=== PATIENT | male | born 1950 | race Caucasian/White ===

== ENCOUNTER 2019-08-13 14:01 | Emergency (ER) | payer MEDICARE, SELFPAY ==
[2019-08-13 14:02] VITALS: BP 163/84; PULSE 67; RESP 18; TEMP 36.6; O2SAT 99; BMI 31.9
--- NOTE | 2019-08-13 14:10 | W.ED.FEVER ---
HPI - Fever General: Chief Complaint: Fever Stated Complaint: poss COVID Time Seen by Provider: 08/13/19 14:10 History of Present Illness: HPI Narrative: 69-year-old male who comes in complaining of shortness of breath and fever for the last couple of days he also has myalgias. He is not had any vomiting or diarrhea. He is not traveled he is not been around anyone who he has been known to be positive for COVID 19. Associated symptoms: Deny abdominal pain, back/flank pain, chills, chest pain, diarrhea, dysuria, nasal congestion, nausea or vomiting Review of Systems Const: Denies: fever, chills, body aches, change in appetite, fatigue or malaise ENMT: Denies: throat pain, ear pain, nasal discharge or nasal congestion Card: Denies: chest pain, edema, shortness of breath on exertion or shortness of breath when lying down Resp: Reports: shortness of breath and non-productive cough; Denies: productive cough GI: Denies: abdominal pain, nausea, vomiting, vomiting blood, coffee grounds in vomit, diarrhea, constipation, bloating, blood in stool or black tarry stool : Denies: flank pain, painful urination, urinary frequency or urinary urgency Skin/Breast: Denies: rash or itching PFSH ED PFSH: Social History Smoking and tobacco status: never smoked Physical Exam Const: COMMON NORMALS: no apparent distress GENERAL APPEARANCE: cooperative and comfortable ORIENTATION/CONSCIOUSNESS: Yes awake, Yes oriented to person, Yes oriented to place and Yes oriented to time HENMT: COMMON NORMALS: normocephalic, head/scalp atraumatic, hearing grossly normal bilaterally, external ears normal, EAC's normal, TM's normal bilaterally, nasal mucous membranes and turbinates normal, moist oral mucous membranes and oropharynx normal HEAD & SCALP: normocephalic and atraumatic NOSE: nasal mucous membranes and turbinates normal EXTERNAL EAR: Yes external ears normal EXTERNAL AUDITORY CANAL: EAC's normal TYMPANIC MEMBRANE: TM's normal bilaterally Eye: COMMON NORMALS: PERRL, EOMs intact bilaterally, conjunctivae normal and no scleral icterus CONJUNCTIVA: Yes conjunctivae normal PUPIL: Yes PERRL Neck/C-Spine: COMMON NORMALS: full ROM, no lymphadenopathy, supple and no JVD Lymph: LYMPHATIC: no lymphadenopathy noted and no lymphedema noted Resp: COMMON NORMALS: normal respiratory effort, no retractions, no use of accessory muscles and clear to auscultation bilaterally AUSCULTATION: clear to auscultation bilaterally Cardio: COMMON NORMALS: no JVD, regular rate, regular rhythm and no murmurs RATE: regular rate RHYTHM: regular rhythm GI: COMMON NORMALS: soft to palpation and no hepatosplenomegaly AUSCULTATION: Yes normoactive bowel sounds PALPATION: Yes soft, No tender, No guarding and Yes no hepatosplenomegaly Extremity: COMMON NORMALS: normal to inspection, normal capillary refill, no clubbing, cyanosis or edema, no calf tenderness and no pedal edema Neuro: SENSORIUM/ORIENTATION: Yes oriented to person, Yes oriented to place and Yes oriented to time Skin: COMMON NORMALS: no rashes or lesions noted GENERAL SKIN EXAM: no rashes or lesions noted Course Vital Signs: Vital signs: Vital Signs Temperature 97.9 F 08/13/19 14:02 Pulse Rate 64 08/13/19 15:58 Respiratory Rate 14 08/13/19 15:58 Blood Pressure 152/98 08/13/19 15:58 Pulse Oximetry 96 08/13/19 15:58 MDM - Fever MDM Narrative: Medical decision making narrative: Discussed findings with patient especially concerning his elevated blood sugar. Recommended that he quarantine himself until the COVID 19 testing is resulted. If he has significant worsening he should return. Lab Data: Labs: Lab Results 08/13/19 08/13/19 08/13/19 Range/Units 14:30 14:30 14:30 WBC 5.2 (4.0-10.0) 10^3/ uL RBC 4.38 (4.1-5.3) 10^6/u L Hgb 13.3 (11.7-16.6) g/dL Hct 40.3 L (42.0-52.0) % MCV 92.0 (80-94) fL MCH 30.4 (28.0-34.0) pg MCHC 33.0 (30.0-36.0) g/dL RDW 13.3 (12.1-15.1) % Plt Count 136 (130-400) 10^3/c mm MPV 11.0 H (7.4-10.4) fL Neut % (Auto) 57.4 % Lymph % (Auto) 29.9 % Hardeman % (Auto) 6.7 % Eos % (Auto) 1.7 % Baso % (Auto) 1.0 % Neut # (Auto) 3.0 (1.8-7.7) 10^3/u L Lymph # (Auto) 1.6 (0.8-4.8) 10^3/u L Hardeman # (Auto) 0.4 (0.2-0.9) 10^3/u L Eos # (Auto) 0.1 (0.0-0.8) 10^3/u L Baso # (Auto) 0.1 (0.0-0.1) 10^3/u L Nucleated RBC % (a uto) 0 % Nucleated RBCs # 0.0 /100WBC D-Dimer <= 0.27 (0-0.59) ug/mIFE U Sodium 133 L (136-145) mmol/L Potassium 4.8 (3.5-5.1) mmol/L Chloride 96 L (98-107) mmol/L Carbon Dioxide 23 (22-29) mmol/L Anion Gap 18.8 (5-19) BUN 13 (8-23) mg/dL Creatinine 0.9 (0.7-1.2) mg/dL GFR Calculation 84.2 L (90-130) mL/min Glucose 494 H (65-115) mg/dL Calculated Osmolal ity 294 (285-295) mOsm/k g Lactic Acid (0.5-2.2) mmol/L Calcium 9.9 (8.5-10.5) mg/dL Ferritin 2921 H (30-400) ng/mL Total Bilirubin 0.4 (0.15-1.2) mg/dL AST 31 (0-40) U/L ALT 84 H (0-41) U/L Alkaline Phosphata se 361 H (40-130) IU/L Lactate Dehydrogen ase 160 (135-225) U/L C-Reactive Protein 53.9 H (0.0-4.9) mg/L Total Protein 7.5 (6.6-8.7) g/dL Albumin 3.7 (3.5-5.2) g/dL Globulin 3.8 (1.3-4.6) g/dL Procalcitonin 0.19 (0-0.5) ng/mL Influenza Type A A g (Negative) Influenza Type B A g (Negative) 08/13/19 08/13/19 Range/Units 14:30 14:49 WBC (4.0-10.0) 10^3/ uL RBC (4.1-5.3) 10^6/u L Hgb (11.7-16.6) g/dL Hct (42.0-52.0) % MCV (80-94) fL MCH (28.0-34.0) pg MCHC (30.0-36.0) g/dL RDW (12.1-15.1) % Plt Count (130-400) 10^3/c mm MPV (7.4-10.4) fL Neut % (Auto) % Lymph % (Auto) % Hardeman % (Auto) % Eos % (Auto) % Baso % (Auto) % Neut # (Auto) (1.8-7.7) 10^3/u L Lymph # (Auto) (0.8-4.8) 10^3/u L Hardeman # (Auto) (0.2-0.9) 10^3/u L Eos # (Auto) (0.0-0.8) 10^3/u L Baso # (Auto) (0.0-0.1) 10^3/u L Nucleated RBC % (a uto) % Nucleated RBCs # /100WBC D-Dimer (0-0.59) ug/mIFE U Sodium (136-145) mmol/L Potassium (3.5-5.1) mmol/L Chloride (98-107) mmol/L Carbon Dioxide (22-29) mmol/L Anion Gap (5-19) BUN (8-23) mg/dL Creatinine (0.7-1.2) mg/dL GFR Calculation (90-130) mL/min Glucose (65-115) mg/dL Calculated Osmolal ity (285-295) mOsm/k g Lactic Acid 1.8 (0.5-2.2) mmol/L Calcium (8.5-10.5) mg/dL Ferritin (30-400) ng/mL Total Bilirubin (0.15-1.2) mg/dL AST (0-40) U/L ALT (0-41) U/L Alkaline Phosphata se (40-130) IU/L Lactate Dehydrogen ase (135-225) U/L C-Reactive Protein (0.0-4.9) mg/L Total Protein (6.6-8.7) g/dL Albumin (3.5-5.2) g/dL Globulin (1.3-4.6) g/dL Procalcitonin (0-0.5) ng/mL Influenza Type A A g Negative (Negative) Influenza Type B A g Negative (Negative) Discharge Plan Discharge Patient Disposition: Home, Self-Care Clinical Impression: Viral URI with cough Condition: Stable Prescriptions: No Action trazodone 50 mg Tablet 50 mg PO BEDTIME PRN (Reason: Sleep) RF: 0 Tylenol Arthritis Pain 650 mg Tablet Extended Release 1,950 mg PO BID PRN (Reason: Pain) RF: 0 gabapentin 800 mg Tablet 800 mg PO QID RF: 0 losartan 25 mg Tablet 25 mg PO DAILY RF: 0 Flonase Allergy Relief 50 mcg/actuation [place],Suspension 2 spray INTRANASAL DAILY RF: 0 Complete 50+ 0.4-300-250 mg-mcg-mcg Tablet 1 tab PO DAILY RF: 0 Lantus Solostar U-100 Insulin 100 unit/mL (3 mL) Insulin Pen 35 unit SUBCUT BEDTIME RF: 0 oxycodone 10 mg tablet 10 - 20 mg PO Q4H MDD 6 tab PRN (Reason: Pain) RF: 0 Humalog KwikPen Insulin See Rx Instructions .ROUTE .COMPLEX RF: 0 tamsulosin 0.4 mg capsule 0.4 mg PO DAILY RF: 0 Referrals: Ramirez Sheriff MD [Physician] - (Please call to make arrangements to talk to Dr. Sheriff or see him tomorrow.) Activity Restrictions/Additional Instructions: You have been evaluated today for Kovic 19 infection. Clinically we suspect you may have this infection the result will not be back until at the earliest tomorrow. You should follow-up with your primary care doctor tomorrow either by phone or in person. If you have significant worsening or uncontrollable fever or more difficulty breathing return to the emergency room to be reevaluated. You should remain in strict quarantine until you were given your results. Wear a mask anytime you are in the presence of others. Discharge Date/Time: 08/13/19 17:33 Coding Level of Care Code ED Office Services Clerk for Kelly Dudley
--- NOTE | 2019-08-13 14:11 | XR_ITS ---
WS: [id number] CHEST XRAY TECHNIQUE: Portable chest. CLINICAL INFORMATION: dyspnea COMPARISON: October 11, 2018 FINDINGS: Right central venous catheter with tip in the proximal SVC. Heart: Cardiomegaly. Lungs: Elevation right hemidiaphragm. Small right pleural effusion with right basilar atelectasis. Le ft lung is well aerated. Bones: Normal visualized bony structures. XR/XR chest 1V portable [id number] IMPRESSION: 1. Right central venous catheter tip in SVC. 2. Elevation right hemidiaphragm with volume loss right lung base. Small right pleural effusion with right basilar atelectasis. 3. Left lung is well aerated.
--- NOTE | 2019-08-13 14:11 | ECG_ITS ---
Measurements Intervals [place] Rate: 66 P: 37 ND: 172 QRS: -49 QRSD: 125 T: 22 QT: 414 QTc: 434 SINUS RHYTHM POSSIBLE RIGHT VENTRICULAR CONDUCTION DELAY [RSR (QR) IN V1/V2] LEFT ANTERIOR FASCICULAR BLOCK [QRS AXIS <= -45, QR IN I, RS IN II] Compared to ECG 05/14/2015 10:48:14 Left anterior fascicular block now present Left-axis deviation no longer present Incomplete right bundle-branch block no longer present Electronically Signed On 08-13-2019 18:04:42 CDT by Adriana Gordon M.D. [email or web address]
--- NOTE | 2019-08-13 14:45 | PC.NURSE ---
COVID-19 swab obtained and taken to lab.
[2019-08-13 14:53] LABS: Basophils # 0.1 10^3/uL (0.0-0.1); Eosinophils # 0.1 10^3/uL (0.0-0.8); Eosinophils % 1.7 %; Hematocrit 40.3 % (42.0-52.0); Hemoglobin 13.3 g/dL (11.7-16.6); Lymphocytes # 1.6 10^3/uL (0.8-4.8); Lymphocytes % 29.9 %; Mean Corpuscular Hemoglobin 30.4 pg (28.0-34.0); Monocytes # 0.4 10^3/uL (0.2-0.9); Monocytes % 6.7 %; Neutrophils % 57.4 %; Nucleated Red Blood Cells % 0 %; Platelet Count 136 10^3/cmm (130-400); Red Blood Count 4.38 10^6/uL (4.1-5.3); Red Cell Distribution Width 13.3 % (12.1-15.1); White Blood Count 5.2 10^3/uL (4.0-10.0)
[2019-08-13 15:25] LABS: D Dimer <= 0.27 ug/mIFEU (0-0.59)
[2019-08-13 15:30] LABS: Lactic Sepsis W/Reflex 1.8 mmol/L (0.5-2.2)
[2019-08-13 15:37] LABS: Procalcitonin 0.19 ng/mL (0-0.5)
[2019-08-13 15:44] LABS: Influenza A by IFA Negative (Negative); Influenza B by IFA Negative (Negative)
[2019-08-13 15:48] LABS: Alanine Aminotransferase 84 U/L (0-41); Albumin Level 3.7 g/dL (3.5-5.2); Alkaline Phosphatase 361 IU/L (40-130); Anion Gap 18.8 (5-19); Aspartate Amino Transferase 31 U/L (0-40); Blood Urea Nitrogen 13 mg/dL (8-23); C Reactive Protein 53.9 mg/L (0.0-4.9); Calcium 9.9 mg/dL (8.5-10.5); Carbon Dioxide 23 mmol/L (22-29); Chloride 96 mmol/L (98-107); Globulin 3.8 g/dL (1.3-4.6); Glomerular Filtration Rate 84.2 mL/min (90-130); Glucose 494 mg/dL (65-115); Lactate Dehydrogenase 160 U/L (135-225); Osmolality Calculated 294 mOsm/kg (285-295); Potassium 4.8 mmol/L (3.5-5.1); Sodium 133 mmol/L (136-145); Total Bilirubin 0.4 mg/dL (0.15-1.2); Total Protein 7.5 g/dL (6.6-8.7)
[2019-08-13 15:58] VITALS: BP 152/98; PULSE 64; RESP 14; O2SAT 96
[2019-08-13 16:06] LABS: Ferritin 2921 ng/mL (30-400)
--- NOTE | 2019-08-14 14:10 | PC.NURSE ---
Pt called and notified of negative COVID-19 test results.
[2019-08-14 14:16] LABS: Coronavirus Lab Test PTC NOT DETECTED
== END 2019-08-13 17:33 | disposition home or self-care (01) ==
PROVIDERS: Emergency Provider Family Medicine; Family Provider Family Medicine
DX: J06.9 Acute upper respiratory infection, unspecified (principal); R05 Cough; Z79.4 Long term (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 of insulin; E11.65 Type 2 diabetes mellitus with hyperglycemia; I44.4 Left anterior fascicular block
CPT/HCPCS: 12345; 36415; 71045; 80053; 82728; 83605; 83615; 84145; 85025; 85378; 86140; 87040; 87635; 87804; 93005; 99282; 99284

== ENCOUNTER 2019-09-25 14:44 | Outpatient (CLI) | payer MEDICARE, SELFPAY ==
[2019-09-25] MEDS: alteplase 1 mg/mL SDV 2 mL 2 MG IV (15:00)
== END 2019-09-25 14:45 | disposition home or self-care (01) ==
LOC: ONCMED 14:45
PROVIDERS: PCP Family Medicine; Visit Provider Internal Medicine Medical Oncology
DX: Z45.2 Encounter for adjustment and management of vascular access device (principal); C81.92 Hodgkin lymphoma, unspecified, intrathoracic lymph nodes; D46.Z Other myelodysplastic syndromes
CPT/HCPCS: 96374; J2997

== ENCOUNTER 2019-10-27 15:11 | Outpatient (CLI) | payer MEDICARE, SELFPAY | END 2019-10-27 15:12 | disposition home or self-care (01) | LOC: ONCMED 15:15 | PROVIDERS: PCP Family Medicine; Visit Provider Internal Medicine Medical Oncology | DX: Z45.2 Encounter for adjustment and management of vascular access device (principal) | CPT/HCPCS: 96523 ==

== ENCOUNTER 2019-11-24 13:55 | Outpatient (CLI) | payer MEDICARE, SELFPAY | END 2019-11-24 13:56 | disposition home or self-care (01) | LOC: ONCMED 13:58 | PROVIDERS: PCP Family Medicine; Visit Provider Nurse Practitioner | DX: Z45.2 Encounter for adjustment and management of vascular access device (principal) | CPT/HCPCS: 96523 ==

== ENCOUNTER 2020-04-08 15:19 | Outpatient (CLI) | payer MEDICARE, SELFPAY | END 2020-04-08 15:20 | disposition home or self-care (01) | LOC: ONCMED 15:26 | PROVIDERS: PCP Family Medicine; Visit Provider Internal Medicine Medical Oncology | DX: Z45.2 Encounter for adjustment and management of vascular access device (principal) | CPT/HCPCS: 96523 ==

== ENCOUNTER 2020-05-26 12:31 | Outpatient (CLI) | payer MEDICARE, SELFPAY ==
[2020-05-26 14:16] LABS: Basophils # 0.1 10^3/uL (0.0-0.1); Basophils % 1.3 %; Eosinophils # 0.1 10^3/uL (0.0-0.8); Eosinophils % 2.3 %; Hematocrit 41.1 % (42.0-52.0); Lymphocytes # 2.2 10^3/uL (0.8-4.8); Lymphocytes % 41.9 %; Mean Corpuscular HGB Conc 34.1 g/dL (30.0-36.0); Mean Corpuscular Hemoglobin 30.3 pg (28.0-34.0); Mean Platelet Volume 11.6 fL (7.4-10.4); Monocytes # 0.3 10^3/uL (0.2-0.9); Monocytes % 6.5 %; Neutrophils # 2.51 10^3/uL (1.8-7.7); Neutrophils % 47.6 %; Nucleated Red Blood Cells % 0 %; Platelet Count 106 10^3/cmm (130-400); Red Blood Count 4.62 10^6/uL (4.1-5.3); Red Cell Distribution Width 12.7 % (12.1-15.1); White Blood Count 5.3 10^3/uL (4.0-10.0)
[2020-05-26 15:03] LABS: Erythrocyte Sedimentation Rate 17 mm/hr (0-10)
[2020-05-26 15:47] LABS: Alanine Aminotransferase 93 U/L (0-41); Alkaline Phosphatase 250 IU/L (40-130); Anion Gap 12.9 (5-19); Aspartate Amino Transferase 35 U/L (0-40); Blood Urea Nitrogen 14 mg/dL (8-23); Calcium 9.6 mg/dL (8.5-10.5); Carbon Dioxide 29 mmol/L (22-29); Chloride 98 mmol/L (98-107); Globulin 3.2 g/dL (1.3-4.6); Glomerular Filtration Rate 112.1 mL/min (90-130); Glucose 386 mg/dL (65-115); Iron 110 ug/dL (59-158); Lactate Dehydrogenase 159 U/L (135-225); Lipase 17 U/L (13-60); Osmolality Calculated 296 mOsm/kg (285-295); Percent Saturation 45.4 % (20-50); Potassium 4.9 mmol/L (3.5-5.1); Sodium 135 mmol/L (136-145); Thyroid Stimulating Hormone 2.71 uIU/mL (0.27-4.20); Total Bilirubin 0.5 mg/dL (0.15-1.2); Total Iron Binding Capacity 242 mcg/dl; Total Protein 7.2 g/dL (6.6-8.7); Unsaturated Iron Binding 132 ug/dL (112-347); Vitamin B12 597 pg/mL (232-1245)
[2020-05-26 16:09] LABS: Ferritin 2857 ng/mL (30-400)
[2020-05-26 16:36] LABS: Estmated Average Glucose 206; Hemoglobin A1C 8.8 % (4.0-6.0)
--- NOTE | 2020-05-30 12:31 | ONC CON_ITS ---
Dr. Bal New Patient Note Patient: Inder Caldwell Unit #: [id number]: 1950 Dicatated By: Milton Bal M.D.Date of Visit: May 26, 2020 Onc MED New Patient/Consult Referring Physician: Dr. Shashank Coulter M.D. Chief Complaint: Myelodysplastic syndrome/Hodgkin's lymphoma. 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 The myelodysplastic syndrome was initially diagnosed in July of 2002. He had severe pancytopenia at that time, including transfusion dependent anemia. He had failed initial therapies and he ultimately underwent HLA matched unrelated donor bone marrow transplant at [facility] in November of 2005. The MDS has remained in remission following the [facility]. 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 He required placement of a pericardial window in May 2008. In June 2011 his serum ferritin was found to be markedly elevated, in excess of 5000 ng/mL, consistent with iron overload. This was presumed to be related to his previous transfusions. 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 He did start on a phlebotomy program at that time. In July 2012 he developed an acute febrile illness. A specific cause for that was never determined, but it did resolve. He stopped phlebotomies at that point. During subsequent followup with Dr. Coulter, he apparently was found to have evidence of iron deficiency, and he received several iron infusions. He also underwent upper and lower GI endoscopy, and there were no significant abnormalities noted on either study. I had seen him in May 2014 with declining performance status. He had significantly a elevated sedimentation rate and CRP level. He was subsequently found on CT scan to have significant mediastinal lymphadenopathy. He then underwent further evaluation at [facility], and he was found on a left internal jugular lymph node biopsy to have a post transplant lymphoproliferative disorder consistent with classical Hodgkin's lymphoma. He appeared to have at least stage IIB disease. The bone marrow was not involved. It was recommended that he undergo treatment with ABVD chemotherapy. Durng his evaluation at [facility], he underwent placement of a [place] catheter for the chemotherapy administration. We had arranged for him to start chemotherapy here, but he did require pulmonary function studies prior to his first treatment, and while that was being done he fell at home and sustained a traumatic fracture to the right hip. He underwent open reduction with gamma nail fixation on 06/16/2014. He was discharged to a halfway for recovery, which was fairly uneventful. He was then able to start ABVD chemotherapy on 06/25/2014. He did experience multiple complications during chemotherapy, and he remained severely neutropenic throughout his treatment. He was, though, able to complete his 6th cycle of treatment on 11/26/2014. He appeared to have a complete response by follow-up PET/CT. His hip fixation subsequently failed, and he then underwent right total hip arthroplasty in February 2016. During this time he had continued to have significant pain in the low back area. He was evaluated with CT of the lumbar spine, which showed new compression fracture at L2 and increased L4-L5 central canal stenosis related to degenerative disc bulge. I had discussed those results with Dr. Geiger, and he did recommend further evaluation with MRI. That study was done on 08/11/2014 and it did show evidence of acute vertebral compression fracture at L2 and severe central canal stenosis and bilateral neural foraminal stenosis at L4-L5. There was extensive posterior lumbar bone fusion from L1 thru L3 and evidence of post laminectomy defects. He had known degenerative disease of the spine with chronic back pain. He was managed conservatively. I had seen him again in December 2016 and in August 2017. He had ongoing complaints of weakness/fatigue and generalized itching. On evaluation, there was no evidence of recurrence of either the myelodysplastic syndrome or the Hodgkin's lymphoma. His other medical illnesses include hypertension, type 2 diabetes, peripheral neuropathy, and GERD. He is a nonsmoker. He is seen for a followup visit. He complains that he is just tired. He has limited activity. His ECOG score is 2. He has good appetite. He has lost weight. He has no fever or night sweats. He complains that his left ear drains all the time. He does not complain of shortness of breath or cough, and he does not complain of chest pain. He complains of having nausea and he sometimes has acid reflux. He has been having pain in his upper abdomen and he has constipation. He has not been aware of any blood in the stool. He complains that his urination is slow. He has chronic pain in the back. He says it is at least at a 5 or 6 level all the time. He follows with Dr. Smith at pain clinic. He has migraine headaches at least once or twice a month. He has peripheral neuropathy. He has no focal neurologic symptoms. Past Medical History: His medical history consists of degenerative disease of the spine, diabetes type II, gastroesophageal reflux disease, Hodgkin's lymphoma, hypertension, obstructive sleep apnea, peripheral neuropathy, and high grade myelodysplastic syndrome in 2002. Past Surgical History: His surgical/procedural history includes lumbar laminectomy following back injury in 1996, tonsillectomy, right total hip arthroplasty in 2015, right hip gamma nail hip implant-Dr Nichols ([facility] [place] in 2014, pericardial window in 2008, and HLA matched unrelated donor bone marrow transplant in 2005 - [facility]. Medications: AmLODIPine Besylate 1 Tablet (of 5 mg) Oral daily, Cholecalciferol 1 (1000 Units) Capsule Oral daily, Gabapentin 1 Tablet (of 800 mg) Oral four times a day, HumaLOG Subcutaneous t.i.d., Lantus SoloStar 40 Units Subcutaneous daily, Losartan Potassium 1 Tablet (of 25 mg) Oral daily, Multiple Vitamin 1 Capsule Oral daily, OxyCODONE HCl 1 - 2 (5 mg) Tablet Oral q 4 hours PRN Allergies: Codeine Sulfate, Morphine Sulfate, and Soma. Social History: Mr. Caldwell is and he is a disabled. He has never smoked and drinks alcohol rarely. Family History: Significant for his father having of lung cancer at age 66. Mother of possible suicide when patient was 11 years old. Review of Systems: As above. Vital Signs: Performed on May 26, 2020 13:07: 5, 30.31 (HIGH), 2.11 sq.m, 69.50 in, 99 %, 66 /min, 18 /min, 132/68 mm(hg), 96.6 F (LOW), 208.2 lbs (LOW), and Performed on Jun 29, 2017 12:19: 0. Physical Examination: Constitutional - He appears somewhat weak generally, Eyes - Sclerae nonicteric. Conjunctivae clear, ENMT - No lesions noted in the oral cavity, Hematologic/Lymphatic - No cervical, clavicular, or axillary adenopathy, Respiratory - Lungs sound clear, Cardiovascular - Heart rhythm is regular. There is a II/ systolic murmur. There is no gallop or rub noted, Abdomen - Soft. Liver is not enlarged. Spleen is not palpable. There is no abdominal mass or ascites noted and there is no inguinal adenopathy, Extremities - There are mild venous stasis changes bilaterally. There is currently no edema, Integumentary - No skin eruption. No suspicious skin lesions noted, Neurologic - No focal neurologic deficits noted. Lab/Imaging: Test performed on May 26, 2020 13:48 Ferritin 2857 ng/mL Iron 110 mcg/dL LDH (Total) 159 U/L Lipase 17 U/L Sodium 135 mmol/L TSH 2.71 uIU/mL Vitamin B12 597 pg/mL Iron Binding Capacity (TIBC) 242 mcg/dl Potassium 4.9 mmol/L % Iron Saturation 45.4 % Chloride 98 mmol/L Est Avg Glucose (eAG) 206 mg/dL CO2 29 mmol/L UIBC 132 mcg/dL Anion Gap 12.9 BUN 14 mg/dL Creatinine 0.7 mg/dL Cr Clearance (Est) 134.9100 mL/min eGFR 112.1 mL/min Glucose 386 mg/dL Osmolality - Calculated 296 mOsm/kg Calcium 9.6 mg/dL Protein, Total 7.2 g/dL Albumin 4.0 g/dL Globulin 3.2 g/dL Bilirubin, Total 0.5 mg/dL ALT (SGPT) 93 U/L AST (SGOT) 35 U/L Alkaline Phosphatase 250 IU/L ESR (Sed Rate) 17 mm/hr Hemoglobin A1C % 8.8 % WBC 5.3 10 3/uL RBC 4.62 10 6/uL HGB 14.0 g/dL HCT 41.1 % MCV 89.0 fL MCH 30.3 pg MCHC 34.1 g/dL RDW 12.7 % Platelet Count 106 10 3/cmm MPV 11.6 fL Neutrophils 2.51 10 3/uL Lymphocytes 2.2 10 3/uL Monocytes 0.3 10 3/uL Eosinophils 0.1 10 3/uL Basophils 0.1 10 3/uL Neutrophil % 47.6 % Lymphocyte % 41.9 % Monocyte % 6.5 % Eosinophil % 2.3 % Basophils % 1.3 % NRBC % 0 % Problem List: 1. High-grade myelodysplastic syndrome. He underwent HLA matched unrelated donor bone marrow transplant at [facility] in November 2005. Thus far there has been no documented recurrence of the myelodysplastic syndrome. 2. During followup he required treatment for [id number] disease, including an episode of pericarditis and pulmonary infiltrates in May 2008. 3. In May 2014 he was diagnosed with classical Hodgkin's lymphoma, consistent with a post transplant lymphoproliferative disorder. By clinical evaluation appeared to have stage IIB disease. He had complete response to treatment with 6 cycles of ABVD chemotherapy, completed in November 2014. 4. He has had significantly elevated serum ferritin levels, previously in excess of 5000 ng/mL. It was uncertain to what extent that elevation may have reflected inflammatory changes versus iron overload. His transferrin saturation, though, was never elevated. 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 5. He underwent open reduction with gamma nail fixation for traumatic right femoral neck fracture on 06/16/2014. The fixation subsequently failed, and he underwent right total hip arthroplasty in February 2016. 6. He has had moderately elevated liver enzymes. Etiology is uncertain. The likely possibilities would be srvvi-ybwqiw-rzio disease or iron overload. His viral hepatitis screen in May 2014 was reactive to hepatitis Bs antibody and otherwise negative. 7. Hypertension. 8. Type II diabetes. 9. GERD. 10. Obstructive sleep apnea with intolerance to CPAP. 11. Degenerative disease of the spine with chronic back pain. 12. He has had vertebral compression fractures. Problems Addressed with this Encounter and Plan: 1. High-grade myelodysplastic syndrome. He underwent HLA matched unrelated donor bone marrow transplant at [facility] in November 2005. Thus far there has been no documented recurrence of the myelodysplastic syndrome. He remains on observation/expectant management. 2. Yibds-zqyhhl-swrr disease, including pericarditis and pulmonary infiltrates in May 2008. It appears to be inactive at present. 3. Classical Hodgkin's lymphoma, consistent with a post transplant lymphoproliferative disorder. By clinical evaluation appeared to have stage IIB disease. He had complete response to treatment with 6 cycles of ABVD chemotherapy, completed in November 2014. He remains on observation/expectant management. 4. He has had significantly elevated serum ferritin levels, and he has had moderately elevated liver enzymes. The cause it is uncertain. His previous evaluations have not shown clear evidence of iron overload. 5. He has chronic weakness/fatigue and generalized itching. A specific cause has not been determined. Given his complex history, there are multiple potential contributing causes including the potential for underlying liver disease and his obstructive sleep apnea. He also has been having pain in the upper abdomen, and he has had significant weight loss. He will have laboratory studies today to include CBC, comprehensive metabolic profile, sed rate, LDH level, serum lipase, serum iron studies and ferritin, B12 level, LDH level, and hemoglobin A1c level. He will be scheduled for restaging CT scans of the chest, abdomen, and pelvis. He will have further evaluation as indicated. Signed By: Milton Bal M.D. <<Signature on File>>
== END 2020-05-26 12:32 | disposition home or self-care (01) ==
LOC: ONCMED 12:34
PROVIDERS: PCP Family Medicine; Visit Provider Internal Medicine Medical Oncology
DX: Z08 Encounter for follow-up examination after completed treatment for malignant neoplasm (principal); Z85.71 Personal history of Hodgkin lymphoma; Z86.2 Personal history of diseases of the blood and blood-forming organs and certain disorders involving the immune mechanism; R74.8 Abnormal levels of other serum enzymes; R53.1 Weakness; R10.10 Upper abdominal pain, unspecified; R63.4 Abnormal weight loss; E11.42 Type 2 diabetes mellitus with diabetic polyneuropathy; L29.9 Pruritus, unspecified; Z94.81 Bone marrow transplant status; Z92.21 Personal history of antineoplastic chemotherapy
CPT/HCPCS: 36591; 80053; 82607; 82728; 83036; 83540; 83550; 83615; 83690; 84443; 85025; 85651; 99215

== ENCOUNTER 2020-06-02 08:35 | Outpatient (CLI) | payer MEDICARE, SELFPAY ==
--- NOTE | 2020-06-02 08:42 | CT_ITS ---
WS: [id number] CT CHEST, ABDOMEN AND PELVIS WITH CONTRAST. HISTORY: LYMPHOMA, PAIN UPPER ABDOMEN, WEIGHT LOSS TECHNIQUE: Contiguous 5 mm axial imaging performed through the chest, abdomen and pelvis with IV cont rast, oral contrast has been provided. Coronal and sagittal reformats chest. Coronal and sagittal ref ormats through the abdomen and pelvis. All CT scans at [facility] use at least one of the se dose optimization techniques: automated exposure control; mA and/or kV adjustment per patient size (includes targeted exams where dose is matched to clinical indication); or iterative reconstruction. CONTRAST: Omnipaque 300; 95 mL IV. DLP: 2871.13 mGycm COMPARISON: 08/14/2017 and 05/07/[address]: Subsegmental linear areas of atelectasis in the base of the RIGHT middle and RIGHT lower lo bes. No pulmonary nodule or mass. Inferior RIGHT paratracheal lymph node measures 10 mm. This lymph n ode is unchanged since 08/14/2017. No additional larger indeterminate lymph nodes. Mild atherosclerosi s aorta. Pulmonary artery size is equal to the aorta. Moderate coronary artery calcifications. Very m ild enlargement of the heart. Small hiatal hernia. RIGHT Port-A-Cath is present. Abdomen CT: Mild enlargement the liver. There is very mild central bile duct dilatation which may be on the basis of prior cholecystectomy. No obstructing mass identified. Prior cholecystectomy. Spleen is enlarged extending over length of 16.4 cm. Similar measurement to the prior study from 05/07/2017. N o splenic lesions. Moderate atrophy of the pancreas. No adrenal mass. Kidneys are normal size with no obstruction. Mild atherosclerosis abdominal aorta. No ascites. No mesenteric or retroperitoneal lymphadenopathy. Moderate diffuse constipation. No obstruction or inflammation. The appendix is been removed. Pelvic CT: Normally distended urinary bladder. No free fluid or adenopathy in the pelvis. Prior RIGHT hip arthroplasty. No osteolytic or osteoblastic bone lesions. Extensive postsurgical paul ges and laminectomy defects in the lumbar spine. L2 compression fracture. Lytic changes within the L2 and L3 vertebral bodies are unchanged. No new lytic change. CT/CT chest abd pel w con* IMPRESSION: 1. No evidence for adenopathy or interval change within the chest, abdomen or pelvis. 2. Stable inferior RIGHT paratracheal lymph node. 3. Prior cholecystectomy with mild central bile duct dilatation. Dilatation ma y be on the basis of cholecystectomy. No mass or stones identified within the d uct. 4. Moderate splenomegaly measuring 16.4 cm in length. Similar to the prior gerson dy of 05/07/2017. 5. Diffuse moderate constipation.
[2020-06-02] MEDS: iohexol 300 mg/mL 50 mL Btl PO (10:01)
[2020-06-02] MEDS: iohexol 300 mg/mL 100 mL Btl IV (10:22)
== END 2020-06-02 08:36 | disposition home or self-care (01) ==
LOC: RADWPI 08:42
PROVIDERS: PCP Family Medicine; Visit Provider Internal Medicine Medical Oncology
DX: C81.92 Hodgkin lymphoma, unspecified, intrathoracic lymph nodes (principal); R10.10 Upper abdominal pain, unspecified; R63.4 Abnormal weight loss; K59.00 Constipation, unspecified; R16.1 Splenomegaly, not elsewhere classified; Z90.49 Acquired absence of other specified parts of digestive tract
CPT/HCPCS: 71260; 74177; Q9967

== ENCOUNTER 2020-07-02 15:35 | Emergency (ER) | payer MEDICARE, SELFPAY ==
[2020-07-02 15:47] VITALS: BP 206/80; PULSE 68; RESP 18; TEMP 36.6; O2SAT 99; BMI 33.4
--- NOTE | 2020-07-02 16:01 | ECG_ITS ---
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 Measurements Intervals [place] Rate: 60 P: 41 FL: 203 QRS: -52 QRSD: 116 T: 42 QT: 429 QTc: 430 Interpretive Statements SINUS RHYTHM INCOMPLETE RIGHT BUNDLE BRANCH BLOCK [90+ ms QRS DURATION, TERMINAL R IN V1/V2, 40+ ms S IN I/aVL/V4/V5/V6] LEFT ANTERIOR FASCICULAR BLOCK [QRS AXIS <= -45, QR IN I, RS IN II] MINIMAL VOLTAGE CRITERIA FOR LVH, CONSIDER NORMAL VARIANT [MEETS CRITERIA IN ONE OF: R(aVL), S(V1), R(V5), R(V5/V6)+S(V1)] Compared to ECG 08/13/2019 14:48:06 Incomplete right bundle-branch block now present Electronically Signed On 07-03-2020 11:25:19 LONG LINES OPERATOR by Gladys Diana M.D. [id number]
--- NOTE | 2020-07-02 16:16 | PC.PHAR ---
pts states the pt is suppose to be taking lantus solostar-pt and pts states the pt has been out of this medication for 3 months states the insurance doesnt cover it any longer states he was suppose to be on 35 units hs-pts states the pt takes humalog -pts states [facility] fill [facility] states they havent filled this medication for the pt
--- NOTE | 2020-07-02 16:22 | CTR_ITS ---
PROCEDURE INFORMATION: Exam: CT Abdomen And Pelvis With Contrast Exam date and time: 07/02/2020 5:12 PM Age: 70 years old Clinical indication: Abdominal pain; Localized; Left upper quadrant (luq); Prior surgery; Surgery date: 6+ months; Surgery type: Gb, hip, l-sp; Patient HX: HX of lymphoma C/O luq abd cramping w n/v and constipation; Additional info: Abd pain TECHNIQUE: Imaging protocol: Computed tomography of the abdomen and pelvis with contrast. Radiation optimization: All CT scans at this facility use at least one of these dose optimization techniques: automated exposure control; mA and/or kV adjustment per patient size (includes targeted exams where dose is matched to clinical indication); or iterative reconstruction. Contrast material: OMNI 300; Contrast volume: 95 ml; Contrast route: INTRAVENOUS (IV); COMPARISON: CT chest abd pel w con* 06/02/2020 10:18 AM RADIATION DOSE METRICS: Total DLP (mGy-cm): 1455.88 FINDINGS: Lungs: The visualized lung bases are clear. Liver: Normal size and density. No focal mass. Gallbladder and bile ducts: The gallbladder has been removed. Mild biliary dilatation, similar to prior exam, likely due to reservoir effect. Pancreas: No evidence of mass. No ductal dilation. Spleen: Spleen is enlarged at 17 cm. Adrenal glands: Normal. Kidneys and ureters: No stones or hydronephrosis. No evidence of focal mass. Stomach and bowel: A large amount of formed stool throughout the colon. No signs of obstruction. No focal bowel wall thickening or mass. No significant diverticula. Appendix: The appendix is not clearly seen, but there are no secondary signs of acute appendicitis. Intraperitoneal space: No free air. No free fluid or evidence of abscess. Vasculature: No concerning abnormalities. Lymph nodes: No lymphadenopathy. Urinary bladder: Normal CT appearance. Reproductive: Normal CT appearance for age. Bones/joints: Postsurgical changes and associated significant degenerative changes of the lumbar spine. Old compression deformity of the the L2 vertebral body. Not significantly changed compared to the prior exam. Status post right hip arthroplasty. Soft tissues: Within normal limits. CT/CT abdomen pelvis w con* [id number] IMPRESSION: 1. A large amount of formed stool throughout the colon suggesting constipation. 2. Otherwise no acute findings. Radiation Dose CTDIVOL = (mGy): DLP = 1455.88 (mGy-cm)
--- NOTE | 2020-07-02 16:24 | ED_ITS ---
HPI - Abdominal Pain General: Chief Complaint: Abdominal Pain Stated Complaint: STOMACH CRAMPS Time Seen by Provider: 07/02/20 15:48 History of Present Illness: HPI narrative: 70-year-old male comes in complaining of abdominal pain cramping progressively worsening for the last 3 days with nausea and dry heaving. Is not passing any gas. He has severe abdominal pain which he localizes to the left upper quadrant. He denies any hematochezia melena hematemesis or coffee-ground emesis. Patient states he has no BM for the last 5 days. MD elicited complaint: abdominal pain Onset (ago): day(s) (5) Pain Consistency: intermittent Location: LUQ Severity: severe Quality: cramping Radiation: none Migration to: no migration Exacerbating factors: movement Associated Symptoms: Reports anorexia, bloating, GI cramping and nausea; Denies belching, change in bowel habits, change in stool character, chills, coffee ground emesis, constipation, diarrhea, dyspepsia, dysuria, excessive flatus, fever(s), heartburn, hematochezia, hematuria, hematemesis, fecal incontinence, loose stools, melena, poor appetite, syncope and vomiting Review of Systems Const: Denies: fever(s) or chills ENMT: Denies: throat pain, ear or mastoid pain, nasal discharge or nasal congestion Card: Denies: syncope Resp: Denies: dyspnea, productive cough or non-productive cough GI: Reports: nausea, bloating and GI cramping; Denies: vomiting, hematemesis, coffee ground emesis, heartburn, diarrhea, constipation, belching, excessive flatus, fecal incontinence, change in bowel habits, change in stool character, hematochezia or melena : Denies: dysuria or hematuria Skin/Breast: Denies: rash or pruritus PFSH ED PFSH: Social History Smoking and tobacco status: never smoked Physical Exam Const: COMMON NORMALS: no acute distress GENERAL APPEARANCE: cooperative and comfortable ORIENTATION/CONSCIOUSNESS: Yes awake, Yes oriented to person, Yes oriented to place and Yes oriented to time HENMT: COMMON NORMALS: normocephalic, atraumatic and hearing grossly normal bilaterally HEAD & SCALP: normocephalic and atraumatic Eye: COMMON NORMALS: Equal, round and reactive pupils present, EOMs intact bilaterally, conjunctivae normal and no scleral icterus CONJUNCTIVA: Yes conjunctivae normal PUPIL: Yes Equal, round and reactive pupils present Neck/C-Spine: COMMON NORMALS: full ROM, no lymphadenopathy, supple and no JVD Lymph: LYMPHATIC: no lymphadenopathy noted and no lymphedema noted Resp: COMMON NORMALS: normal respiratory effort, No retractions, No use of accessory muscles and clear to auscultation bilaterally AUSCULTATION: clear to auscultation bilaterally Cardio: COMMON NORMALS: no JVD, regular rate, regular rhythm and No murmurs present (Cardio) RATE: regular rate RHYTHM: regular rhythm GI: COMMON NORMALS: Soft to palpation and No hepatosplenomegaly present AUSCULTATION: Yes normoactive bowel sounds PALPATION: Yes Soft to palpation, No Tenderness to palpation present (GI), No Guarding due to palpation present (GI) and Yes No hepatosplenomegaly present Extremity: COMMON NORMALS: normal to inspection, capillary refill normal, no clubbing, cyanosis or edema, no calf tenderness and no pedal edema Neuro: SENSORIUM/ORIENTATION: Yes oriented to person, Yes oriented to place and Yes oriented to time Skin: COMMON NORMALS: no rashes or lesions noted GENERAL SKIN EXAM: no rashes or lesions noted Course Vital Signs: Vital signs: Vital Signs Temperature 97.9 F 07/02/20 15:47 Pulse Rate 63 07/02/20 18:07 Respiratory Rate 16 07/02/20 18:07 Blood Pressure 180/90 07/02/20 18:07 Pulse Oximetry 99 07/02/20 18:07 MDM - Abdominal Pain MDM Narrative: Medical decision making narrative: Discussed findings with patient will have him use mag citrate to relieve constipation return if has further problems Lab Data: Labs: Lab Results 07/02/20 07/02/20 07/02/20 Range/Units 16:32 16:32 17:00 WBC 7.2 (4.0-10.0) 10^3/ uL RBC 4.31 (4.1-5.3) 10^6/u L Hgb 13.3 (11.7-16.6) g/dL Hct 38.5 L (42.0-52.0) % MCV 89.3 (80-94) fL MCH 30.9 (28.0-34.0) pg MCHC 34.5 (30.0-36.0) g/dL RDW 13.2 (12.1-15.1) % Plt Count 110 L (130-400) 10^3/c mm MPV 11.4 H (7.4-10.4) fL Neut % (Auto) 60.9 % Lymph % (Auto) 28.4 % Rolette % (Auto) 4.8 % Eos % (Auto) 4.3 % Baso % (Auto) 1.0 % Neut # (Auto) 4.40 (1.8-7.7) 10^3/u L Lymph # (Auto) 2.1 (0.8-4.8) 10^3/u L Rolette # (Auto) 0.4 (0.2-0.9) 10^3/u L Eos # (Auto) 0.3 (0.0-0.8) 10^3/u L Baso # (Auto) 0.1 (0.0-0.1) 10^3/u L Nucleated RBC % (a uto) 0 % Nucleated RBCs # 0.0 /100WBC Sodium 138 (136-145) mmol/L Potassium 4.4 (3.5-5.1) mmol/L Chloride 105 (98-107) mmol/L Carbon Dioxide 24 (22-29) mmol/L Anion Gap 13.4 (5-19) BUN 20 (8-23) mg/dL Creatinine 0.7 (0.7-1.2) mg/dL GFR Calculation 112.1 (90-130) mL/min Glucose 261 H (65-115) mg/dL Calculated Osmolal ity 298 H (285-295) mOsm/k g Calcium 9.3 (8.5-10.5) mg/dL Total Bilirubin 0.5 (0.15-1.2) mg/dL AST 22 (0-40) U/L ALT 39 (0-41) U/L Alkaline Phosphata se 193 H (40-130) IU/L Total Protein 7.7 (6.6-8.7) g/dL Albumin 4.3 (3.5-5.2) g/dL Globulin 3.4 (1.3-4.6) g/dL Lipase 16 (13-60) U/L Urine Color Yellow (Yellow) Urine Appearance Clear (CLEAR) Urine pH 5 (5-7) Ur Specific Gravit y 1.015 (1.005-1.030) Urine Protein Neg (Negative) Urine Glucose (UA) 2+ (Normal) Urine Ketones Negative (Negative) Urine Blood Neg (Negative) Urine Nitrate Negative (Negative) Urine Bilirubin 1+ H (Negative) Urine Urobilinogen 1 H (Negative) mg/dL Ur Leukocyte Jo-Ann ase Negative (Negative) Discharge Plan Discharge Patient Disposition: Home Clinical Impression: Constipation Condition: Stable Prescriptions: New magnesium citrate Solution 150 ml PO DAILY PRN (Reason: constipation) Qty: 296 RF: 0 No Action acetaminophen [Tylenol Arthritis Pain] 650 mg Tablet Extended Release 1,300 mg PO PRN RF: 0 gabapentin 800 mg Tablet 800 mg PO QID RF: 0 losartan 25 mg Tablet 25 mg PO QAM RF: 0 Complete 50 Plus 0.4-300-250 mg-mcg-mcg Tablet 1 tab PO QAM RF: 0 Lantus Solostar U-100 Insulin 100 unit/mL (3 mL) Insulin Pen See Rx Instructions .ROUTE .COMPLEX RF: 0 oxycodone 10 mg tablet 10 - 20 mg PO Q4H MDD 6 tab PRN (Reason: Pain) RF: 0 insulin lispro [Humalog U-100 Insulin] 100 unit/mL Solution See Rx Instructions .ROUTE .COMPLEX RF: 0 Discharge Orders: Discharge ED (Routine); Ordered 07/02/20 Ordered By: Devyn Mullins Referrals: Ramirez Sheriff MD [Primary Care Provider] - Patient Instructions: Opioid Safety Coding Level of Care Code ED Sales Management Intern for Kelly Dudley
[2020-07-02 16:37] VITALS: PULSE 61; RESP 16; O2SAT 98
[2020-07-02 16:44] LABS: Basophils # 0.1 10^3/uL (0.0-0.1); Eosinophils # 0.3 10^3/uL (0.0-0.8); Eosinophils % 4.3 %; Hematocrit 38.5 % (42.0-52.0); Hemoglobin 13.3 g/dL (11.7-16.6); Lymphocytes # 2.1 10^3/uL (0.8-4.8); Lymphocytes % 28.4 %; Mean Corpuscular HGB Conc 34.5 g/dL (30.0-36.0); Mean Corpuscular Hemoglobin 30.9 pg (28.0-34.0); Mean Corpuscular Volume 89.3 fL (80-94); Mean Platelet Volume 11.4 fL (7.4-10.4); Monocytes # 0.4 10^3/uL (0.2-0.9); Monocytes % 4.8 %; Neutrophils % 60.9 %; Nucleated Red Blood Cells % 0 %; Platelet Count 110 10^3/cmm (130-400); Red Blood Count 4.31 10^6/uL (4.1-5.3); Red Cell Distribution Width 13.2 % (12.1-15.1); White Blood Count 7.2 10^3/uL (4.0-10.0)
[2020-07-02 17:00] LABS: Alanine Aminotransferase 39 U/L (0-41); Albumin Level 4.3 g/dL (3.5-5.2); Alkaline Phosphatase 193 IU/L (40-130); Anion Gap 13.4 (5-19); Aspartate Amino Transferase 22 U/L (0-40); Blood Urea Nitrogen 20 mg/dL (8-23); Calcium 9.3 mg/dL (8.5-10.5); Carbon Dioxide 24 mmol/L (22-29); Chloride 105 mmol/L (98-107); Globulin 3.4 g/dL (1.3-4.6); Glomerular Filtration Rate 112.1 mL/min (90-130); Glucose 261 mg/dL (65-115); Lipase 16 U/L (13-60); Osmolality Calculated 298 mOsm/kg (285-295); Potassium 4.4 mmol/L (3.5-5.1); Sodium 138 mmol/L (136-145); Total Bilirubin 0.5 mg/dL (0.15-1.2); Total Protein 7.7 g/dL (6.6-8.7)
[2020-07-02 17:27] LABS: Add Urine Microscopic? NO
[2020-07-02 17:32] LABS: Bilirubin Urine 1+ (Negative); Blood Urine Neg (Negative); Glucose Urine UA 2+ (Normal); Ketones Urine Negative (Negative); Leukocyte Esterase Urine Negative (Negative); Nitrate Urine Negative (Negative); Protein Urine Neg (Negative); Specific Gravity, Urine 1.015 (1.005-1.030); Urine Appearance Clear (CLEAR); Urine Color Yellow (Yellow); Urobilinogen Urine 1 mg/dL (Negative); pH Urine 5 (5-7)
[2020-07-02] MEDS: iohexol 300 mg/mL 100 mL Btl IV (17:46)
--- NOTE | 2020-07-02 17:51 | PC.NURSE ---
patient denied any nausea at this time.
[2020-07-02 18:07] VITALS: BP 180/90; PULSE 63; RESP 16; O2SAT 99
== END 2020-07-02 18:28 | disposition home or self-care (01) ==
PROVIDERS: Nurse Practitioner Family; Emergency Provider Family Medicine; PCP Family Medicine
DX: K59.00 Constipation, unspecified (principal); Z79.4 Long term (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 of insulin
CPT/HCPCS: 74177; 80053; 81003; 83690; 85025; 93005; 99283; Q9967

== ENCOUNTER 2020-07-12 20:00 | Outpatient (CLI) | payer MEDICARE, SELFPAY | END 2020-07-12 20:01 | disposition home or self-care (01) | LOC: SLEEP 07-13 08:19 | PROVIDERS: PCP Family Medicine; Visit Provider Family Medicine | DX: G47.10 Hypersomnia, unspecified (principal); R06.83 Snoring; R53.83 Other fatigue | CPT/HCPCS: 95810 ==

== ENCOUNTER 2020-10-05 14:30 | Outpatient (CLI) | payer MEDICARE, SELFPAY ==
--- NOTE | 2020-10-05 14:36 | XR_ITS ---
WS: [id number] RIGHT SHOULDER: 3 VIEW(S) TECHNIQUE: Internal and external rotation with Y view. HISTORY: SHOULDER PAIN, RIGHT COMPARISON: None available. Moderate narrowing of the AC joint with small hypertrophic osteophytes. There is additional mild dinah ohumeral joint narrowing. Seen only on the internal rotation is flattening along the medial humeral h ead which could be from an avulsion impaction fracture. Right-sided Mediport with tip in the distal SVC. XR/XR shoulder RT min 2V* [id number] IMPRESSION: 1. Moderate AC joint arthritis. 2. Possible impaction type fracture along the medial humeral head seen only on the internal rotation view. For further evaluation consider CT evaluation of th e RIGHT shoulder.
== END 2020-10-05 14:31 | disposition home or self-care (01) ==
PROVIDERS: PCP Family Medicine; Visit Provider Family Medicine
DX: M25.511 Pain in right shoulder (principal); M13.811 Other specified arthritis, right shoulder
CPT/HCPCS: 73030

== ENCOUNTER 2020-10-19 15:23 | Outpatient (CLI) | payer MEDICARE, SELFPAY ==
--- NOTE | 2020-10-19 15:28 | CT_ITS ---
WS: [id number] CT RIGHT SHOULDER WITHOUT CONTRAST. HISTORY: RIGHT SHOULDER PAIN Technique: All CT scans at [facility] use at least one of these dose optimization techniq ues: automated exposure control; mA and/or kV adjustment per patient size (includes targeted exams wh ere dose is matched to clinical indication); or iterative reconstruction. DLP: 808.71 mGycm COMPARISON: 10/05/2020 No acute fractures. Moderate narrowing of the AC joint. 4 mm osteophytes encroach towards the suprasp inatus. Mild narrowing of the glenohumeral joint. No fractures or joint effusion. No loose bodies are identified. There is mild atrophy of the supraspinatus muscle. Mediport is noted entering the RIGHT subclavian vein. CT/CT shoulder RT wo con* [id number] IMPRESSION: 1. No acute fracture. 2. Moderate AC joint arthritis with small osteophytes encroaching towards the supraspinatus muscle. No definite impingement. 3. Mild supraspinatus atrophy.
== END 2020-10-19 15:24 | disposition home or self-care (01) ==
LOC: RADWPI 15:26
PROVIDERS: PCP Family Medicine; Visit Provider Family Medicine
DX: M25.511 Pain in right shoulder (principal); M13.811 Other specified arthritis, right shoulder; M25.711 Osteophyte, right shoulder
CPT/HCPCS: 73200

== ENCOUNTER 2021-02-25 09:37 | Outpatient (CLI) | payer MEDICARE, SELFPAY | END 2021-02-25 09:38 | disposition home or self-care (01) | LOC: ONCMED 09:40 | PROVIDERS: PCP Family Medicine; Visit Provider Internal Medicine Medical Oncology | DX: Z45.2 Encounter for adjustment and management of vascular access device (principal) | CPT/HCPCS: 96523 ==

== ENCOUNTER 2021-03-25 12:57 | Outpatient (CLI) | payer MEDICARE, SELFPAY | END 2021-03-25 12:58 | disposition home or self-care (01) | LOC: ONCMED 12:59 | PROVIDERS: PCP Family Medicine; Visit Provider Internal Medicine Medical Oncology | DX: Z45.2 Encounter for adjustment and management of vascular access device (principal) | CPT/HCPCS: 96523 ==

== ENCOUNTER 2021-06-28 13:56 | Outpatient (CLI) | payer MEDICARE, SELFPAY ==
--- NOTE | 2021-06-28 14:13 | XR_ITS ---
WS: [id number] Exam: XR chest 2V* [id number] Date/Time of Exam: 06/28/2021 2:16 PM Reason For Exam: COUGH Comparison 08/13/2019. The lungs are clear and fully expanded. Normal cardiomediastinal silhouette. Right subclavian port en ds in the lower one third of the SVC in good position. Chronic eventration of the right diaphragm. Re gional bony elements are intact. XR/XR chest 2V* [id number] IMPRESSION: 1. No acute cardiopulmonary finding. No change. 2. Right subclavian port remaining in satisfactory position.
== END 2021-06-28 13:57 | disposition home or self-care (01) ==
LOC: RAD 14:07
PROVIDERS: PCP Family Medicine; Visit Provider Family Medicine
DX: R05.9 Cough, unspecified (principal)
CPT/HCPCS: 71046

== ENCOUNTER 2021-12-08 14:40 | Oncology outpatient (recurring) (ONCR) | payer MEDICARE, SELFPAY ==
[2021-12-08 14:45] VITALS: BP 154/74; PULSE 66; RESP 18; TEMP 36.1; O2SAT 98
== END 2022-01-04 23:59 | disposition home or self-care (01) ==
PROVIDERS: PCP Family Medicine; Visit Provider Internal Medicine Medical Oncology
DX: Z45.2 Encounter for adjustment and management of vascular access device (principal)
CPT/HCPCS: 96523

== ENCOUNTER 2022-03-09 09:31 | Emergency (ER) | payer MEDICARE, SELFPAY ==
--- NOTE | 2022-03-09 09:33 | XRR_ITS ---
PROCEDURE INFORMATION: Exam: XR Complete Acute Abdomen Series Including Chest Exam date and time: 03/09/2022 9:54 AM Age: 71 years old Clinical indication: Constipation and other: SOB; Abdominal pain; Generalized; Prior surgery; Surgery type: Port; Patient HX: Leukemia; Additional info: Abd pain TECHNIQUE: Imaging protocol: Radiologic exam. Complete acute abdomen series, including 2 or more views of the abdomen and a single view chest. COMPARISON: CT abdomen pelvis w con* [id number] 07/02/2020 5:58 PM FINDINGS: Tubes, catheters and devices: Right-sided central venous chest port noted with the distal tip in the mid SVC. Lungs: Mildly increased ground-glass density in the right lung base. Remainder of the lung parenchyma is clear. Pleural spaces: Blunting of the right costophrenic angle. Trace blunting of the left costophrenic angle. Heart/Mediastinum: The heart is mildly enlarged for size. Gastrointestinal tract: No abnormally dilated air-filled bowel loops identified. Air noted distally in the rectum. Intraperitoneal space: No free air under the diaphragm. Surgical clips in the right upper quadrant. Bones/joints: Right total hip arthroplasty noted. Soft tissues: Unremarkable. XR/XR acute abdomen series [id number] IMPRESSION: 1. Trace bilateral pleural effusions. 2. Ground-glass density in the right lung base may be consistent with atelectasis versus pneumonia. 3. Mild cardiomegaly. 4. No signs of bowel obstruction
--- NOTE | 2022-03-09 09:33 | ECG_ITS ---
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 Measurements Intervals [place] Rate: 69 P: 32 [place]: 205 QRS: -54 QRSD: 117 T: -50 QT: 448 QTc: 481 Interpretive Statements SINUS RHYTHM POSSIBLE LEFT ATRIAL ENLARGEMENT [-0.1mV P-WAVE IN V1/V2] PATTERN CONSISTENT WITH PULMONARY DISEASE INCOMPLETE RIGHT BUNDLE BRANCH BLOCK [90+ ms QRS DURATION, TERMINAL R IN V1/V2, 40+ ms S IN I/aVL/V4/V5/V6] LEFT ANTERIOR FASCICULAR BLOCK [QRS AXIS <= -45, QR IN I, RS IN II] MODERATE T-WAVE ABNORMALITY, CONSIDER INFERIOR ISCHEMIA [-0.1+ mV T-WAVE IN II/aVF] Compared to ECG 07/02/2020 16:56:56 T-wave abnormality now present Possible ischemia now present Electronically Signed On 03-09-2022 15:04:38 CDT by Obi Rutledge M.D. [email or web address] [email or web address] medical specialty [facility] [id number]
[2022-03-09 09:37] VITALS: BP 195/78; PULSE 69; RESP 16; TEMP 36.3; O2SAT 97; BMI 31.0
[2022-03-09 09:59] LABS: Basophils # 0.1 10^3/uL (0.0-0.1); Basophils % 1.5 %; Eosinophils # 0.2 10^3/uL (0.0-0.8); Eosinophils % 2.4 %; Hematocrit 40.1 % (42.0-52.0); Hemoglobin 12.4 g/dL (11.7-16.6); Lymphocytes # 1.4 10^3/uL (0.8-4.8); Lymphocytes % 21.7 %; Mean Corpuscular HGB Conc 30.9 g/dL (30.0-36.0); Mean Corpuscular Hemoglobin 27.9 pg (28.0-34.0); Mean Corpuscular Volume 90.1 fl (80-94); Mean Platelet Volume 11.3 fL (7.4-10.4); Monocytes # 0.3 10^3/uL (0.2-0.9); Monocytes % 4.1 %; Neutrophils # 4.58 10^3/uL (1.8-7.7); Nucleated Red Blood Cells % 0 %; Platelet Count 163 10^3/cmm (130-400); Red Blood Count 4.45 10^6/uL (4.1-5.3); Red Cell Distribution Width 13.3 % (12.1-15.1); White Blood Count 6.6 10^3/uL (4.0-10.0)
[2022-03-09] MEDS: sodium chloride 0.9% 1,000 ML 999 ML IV (10:05)
[2022-03-09] MEDS: ondansetron 2 mg/ML SDV 2 mL 4 MG IVP (10:06)
[2022-03-09 10:12] LABS: Add Urine Microscopic? YES; Bilirubin Urine Neg (Negative); Blood Urine Neg (Negative); Glucose Urine UA Norm (Normal); Ketones Urine 1+ (Negative); Leukocyte Esterase Urine Negative (Negative); Nitrate Urine Negative (Negative); Protein Urine 1+ (Negative); Specific Gravity, Urine 1.015 (1.005-1.030); Urine Appearance Clear (CLEAR); Urine Color Yellow (Yellow); Urobilinogen Urine Norm (Negative); pH Urine 6 (5-7)
[2022-03-09 10:13] LABS: Add Urine Culture? No; Bacteria Urine TRACE /hpf; RBC Urine 0-4 /hpf (0-2); Squamous Epithelial Cell Urine 0-4 /hpf (0-5); WBC Urine 0-4 /hpf (0-5)
[2022-03-09 10:20] LABS: Alanine Aminotransferase 19 U/L (0-41); Albumin Level 4.2 g/dL (3.5-5.2); Alkaline Phosphatase 175 U/L (40-130); Anion Gap 13.2 (5-19); Aspartate Amino Transferase 30 U/L (0-40); Blood Urea Nitrogen 13 mg/dL (8-23); Calcium 9.3 mg/dL (8.5-10.5); Carbon Dioxide 27 mmol/L (22-29); Chloride 103 mmol/L (98-107); Globulin 3.5 g/dL (1.3-4.6); Glomerular Filtration Rate 83.7 mL/min (90-130); Glucose 128 mg/dL (65-115); Lipase 11 U/L (13-60); Osmolality Calculated 290 mOsm/kg (285-295); Potassium 4.2 mmol/L (3.5-5.1); Sodium 139 mmol/L (136-145); Total Bilirubin 0.3 mg/dL (0.15-1.2); Total Protein 7.7 g/dL (6.6-8.7)
[2022-03-09 12:23] VITALS: BP 191/99; PULSE 72; RESP 16; O2SAT 96
--- NOTE | 2022-03-09 13:09 | ED_ITS ---
HPI - Abdominal Pain General: Chief Complaint: Abdominal Pain Stated Complaint: constipation, vomitting, weakness Time Seen by Provider: 03/09/22 09:32 Source: patient Mode of arrival: ambulatory History of Present Illness: 71-year-old male presents emergency room abdominal pain and cramping. Has not had any fever sweats chills no nausea vomiting or diarrhea. He has been very constipated been using lactulose his cramping is i ncreased since he took it. He has not had any hematochezia or melena. No vomiting. He is otherwise feeling well. MD elicited complaint: abdominal pain Pertinent past history: constipation Onset (ago): day(s) Location: Diffuse Severity: mild Quality: cramping Radiation: none Exacerbating factors: nothing Relieving factors: nothing Associated Symptoms: Reports bloating, constipation and GI cramping; Denies anorexia, belching, change in bowel habits, change in stool character, chills, coffee ground emesis, diarrhea, dyspepsia, dysuria, excessive flatus, fever(s), heartburn, hematochezia, hematuria, hematemesis, fecal incontinence, loose stools, melena, nausea, poor appetite, syncope and vomiting Review of Systems Const: Denies: fever(s) or chills ENMT: Denies: throat pain, ear or mastoid pain, nasal discharge or nasal congestion Card: Denies: chest pain, palpitations, irregular heart rhythm or syncope Resp: Denies: dyspnea, productive cough or non-productive cough GI: Reports: abdominal pain, constipation, bloating and GI cramping; Denies: nausea, vomiting, hematemesis, coffee ground emesis, heartburn, diarr hea, belching, excessive flatus, fecal incontinence, change in bowel habits, change in stool character, hematochezia or melena : Denies: dysuria, urinary frequency, urinary urgency or hematuria Skin/Breast: Denies: rash or pruritus PFSH ED PFSH: Medical History Essential hypertension Type 2 diabetes mellitus without complications Social History Smoking and tobacco status: never smoked Physical Exam Const: GENERAL APPEARANCE: cooperative and comfortable ORIENTATION/CONSCIOUSNESS: Yes awake, Yes oriented to person, Yes oriented to place and Yes oriented to time HENMT: COMMON NORMALS: normocephalic, atraumatic and hearing grossly normal bilaterally HEAD & SCALP: normocephalic and atraumatic Resp: COMMON NORMALS: normal respiratory effort, No retractions, No use of accessory muscles and clear to auscultation bilaterally AUSCULTATION: clear to auscultation bilaterally Cardio: COMMON NORMALS: regular rate, regular rhythm and No murmurs present (Cardio) RATE: regular rate RHYTHM: regular rhythm GI: COMMON NORMALS: Soft to palpation and No hepatosplenomegaly present AUSCULTATION: Yes normoactive bowel sounds PALPATION: Yes Soft to palpation, No Tenderness to palpation present (GI), No Guarding due to palpation present (GI) and Yes No hepatosplenomegaly present Extremity: COMMON NORMALS: normal to inspection, capillary refill normal, no clubbing, cyanosis or edema, no calf tenderness and no pedal edema Neuro: SENSORIUM/ORIENTATION: Yes oriented to person, Yes oriented to place and Yes oriented to time Skin: COMMON NORMALS: no rashes or lesions noted GENERAL SKIN EXAM: no rashes or lesions noted Course Vital Signs: Vital signs: Vital Signs Temperature 97.3 F L 03/09/22 09:37 Pulse Rate 72 03/09/22 12:23 Respiratory Rate 16 03/09/22 12:23 Blood Pressure 191/99 03/09/22 12:23 Pulse Oximetry 96 03/09/22 12:23 MDM - Abdominal Pain Medical Decision Making Based on exam suspect patient is mostly constipation no sign of bowel obstruction on the x-ray. There is a mention of groundglass appearance over the lung sounds are clear. At this point discharge patient home aggressive use of laxatives. If worsens or changes return. Did not do anything respiratory symptoms. He has none only a mention in the imaging but no physical exam findings or reported symptoms. Medical Records I reviewed the patient's medical records. Lab Data I reviewed the patient's lab results. : 03/09/22 09:50 03/09/22 09:50 Labs/Radiology: Radiology Impressions Chest/Abdomen X-ray 03/09/22 09:33 IMPRESSION: 1. Trace bilateral pleural effusions. 2. Ground-glass density in the right lung base may be consistent with atelectasis versus pneumonia. 3. Mild cardiomegaly. 4. No signs of bowel obstruction Laboratory Results WBC 6.6 10^3/uL (4.0-10.0) 03/09/22 09:50 RBC 4.45 10^6/uL (4.1-5.3) 03/09/22 09:50 Hgb 12.4 g/dL (11.7-16.6) 03/09/22 09:50 Hct 40.1 % (42.0-52.0) L 03/09/22 09:50 MCV 90.1 fl (80-94) 03/09/22 09:50 MCH 27.9 pg (28.0-34.0) L 03/09/22 09:50 MCHC 30.9 g/dL (30.0-36.0) 03/09/22 09:50 RDW 13.3 % (12.1-15.1) 03/09/22 09:50 Plt Count 163 10^3/cmm (130-400) 03/09/22 09:50 MPV 11.3 fL (7.4-10.4) H 03/09/22 09:50 Neut % (Auto) 70.0 % 03/09/22 09:50 Lymph % (Auto) 21.7 % 03/09/22 09:50 [place] % (Auto) 4.1 % 03/09/22 09:50 Eos % (Auto) 2.4 % 03/09/22 09:50 Baso % (Auto) 1.5 % 03/09/22 09:50 Neut # (Auto) 4.58 10^3/uL (1.8-7.7) 03/09/22 09:50 Lymph # (Auto) 1.4 10^3/uL (0.8-4.8) 03/09/22 09:50 [place] # (Auto) 0.3 10^3/uL (0.2-0.9) 03/09/22 09:50 Eos # (Auto) 0.2 10^3/uL (0.0-0.8) 03/09/22 09:50 Baso # (Auto) 0.1 10^3/uL (0.0-0.1) 03/09/22 09:50 Nucleated RBC % (auto) 0 % 03/09/22 09:50 Nucleated RBCs # 0.0 /100WBC 03/09/22 09:50 Sodium 139 mmol/L (136-145) 03/09/22 09:50 Potassium 4.2 mmol/L (3.5-5.1) 03/09/22 09:50 Chloride 103 mmol/L (98-107) 03/09/22 09:50 Carbon Dioxide 27 mmol/L (22-29) 03/09/22 09:50 Anion Gap 13.2 (5-19) 03/09/22 09:50 BUN 13 mg/dL (8-23) 03/09/22 09:50 Creatinine 0.9 mg/dL (0.7-1.2) 03/09/22 09:50 GFR Calculation 83.7 mL/min (90-130) L 03/09/22 09:50 Glucose 128 mg/dL (65-115) H 03/09/22 09:50 Calculated Osmolality 290 mOsm/kg (285-295) 03/09/22 09:50 Calcium 9.3 mg/dL (8.5-10.5) 03/09/22 09:50 Total Bilirubin 0.3 mg/dL (0.15-1.2) 03/09/22 09:50 AST 30 U/L (0-40) 03/09/22 09:50 ALT 19 U/L (0-41) 03/09/22 09:50 Alkaline Phosphatase 175 U/L (40-130) H 03/09/22 09:50 Total Protein 7.7 g/dL (6.6-8.7) 03/09/22 09:50 Albumin 4.2 g/dL (3.5-5.2) 03/09/22 09:50 Globulin 3.5 g/dL (1.3-4.6) 03/09/22 09:50 Lipase 11 U/L (13-60) L 03/09/22 09:50 Urine Color Yellow (Yellow) 03/09/22 09:45 Urine Appearance Clear (CLEAR) 03/09/22 09:45 Urine pH 6 (5-7) 03/09/22 09:45 Ur Specific [place] 1.015 (1.005-1.030) 03/09/22 09:45 Urine Protein 1+ (Negative) H 03/09/22 09:45 Urine Glucose (UA) Norm (Normal) 03/09/22 09:45 Urine Ketones 1+ (Negative) H 03/09/22 09:45 Urine Blood Neg (Negative) 03/09/22 09:45 Urine Nitrate Negative (Negative) 03/09/22 09:45 Urine Bilirubin Neg (Negative) 03/09/22 09:45 Urine Urobilinogen Norm mg/dL (Negative) 03/09/22 09:45 Ur Leukocyte Esterase Negative (Negative) 03/09/22 09:45 Urine RBC 0-4 /hpf (0-2) H 03/09/22 09:45 Urine WBC 0-4 /hpf (0-5) H 03/09/22 09:45 Ur Squamous Epith Cells 0-4 /hpf (0-5) H 03/09/22 09:45 Amorphous Sediment Not Reportable 03/09/22 09:45 Urine Bacteria Trace /hpf (NONE) 03/09/22 09:45 Discharge Plan Discharge Patient Disposition: Home Clinical Impression: Constipation, Essential hypertension, Type 2 diabetes mellitus without complications Condition: Stable Prescriptions: No Action All Day Allergy (cetirizine) 10 mg capsule 10 mg PO DAILY PRN (Reason: Allergy Symptoms) naproxen sodium [Flanax (naproxen)] 220 mg tablet 220 mg PO BID PRN (Reason: Pain) lactulose 10 gram/15 mL (15 mL) solution 10 g PO DAILY PRN (Reason: constipation) Qty: 750 0RF doxycycline monohydrate 100 mg capsule 100 mg PO BID Qty: 14 0RF acetaminophen [Tylenol Arthritis Pain] 650 mg Tablet Extended Release 1,300 mg PO PRN gabapentin 800 mg Tablet 800 mg PO QID losartan 25 mg Tablet 25 mg PO QAM insulin glargine [Lantus Solostar U-100 Insulin] 100 unit/mL (3 mL) Insulin Pen See Rx Instructions .ROUTE .COMPLEX Rx Instructions: 30 UNITS AM AND 30 UNITS PM oxycodone 10 mg tablet 10 - 20 mg PO Q4H MDD 6 tab PRN (Reason: Pain) insulin lispro [Humalog U-100 Insulin] 100 unit/mL Solution See Rx Instructions .ROUTE .COMPLEX Rx Instructions: sliding scale tid Dramamine 50 mg Tablet 50 mg PO Q8H PRN (Reason: Dizziness) Dulcolax (bisacodyl) 10 mg Suppository 10 mg AL DAILY PRN (Reason: Constipation) Centrum Silver Men 300-600-300 mcg Tablet 1 tab PO DAILY Discharge Orders: Discharge ED (Routine); Ordered 03/09/22 Ordered By: Devyn Mullins Referrals: Ramirez Sheriff MD [Primary Care Provider] - Patient Instructions: Opioid Safety, Pain Management Activity Restrictions/Additional Instructions: Continue lactulose previously prescribed. 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
== END 2022-03-09 12:26 | disposition home or self-care (01) ==
PROVIDERS: Emergency Provider Family Medicine; PCP Family Medicine
DX: K59.00 Constipation, unspecified (principal); I10 Essential (primary) hypertension; E11.9 Type 2 diabetes mellitus without complications; Z79.4 Long term (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 of insulin
CPT/HCPCS: 74022; 80053; 81001; 83690; 85025; 93005; 96361; 96374; 99285; J2405; J7030

== ENCOUNTER 2022-03-21 13:01 | Outpatient (CLI) | payer MEDICARE, SELFPAY ==
--- NOTE | 2022-03-21 13:26 | XR_ITS ---
WS: [id number] Exam: XR acute abdomen series [id number] Date/Time of Exam: 03/21/2022 1:26 PM Reason For Exam: Right upper quadrant abd pain AP chest radiograph compared to the last exam 03/09/2022. There are patchy bibasal pulmonary infiltrates suggesting pneumonia. Small bibasal pleural effusions. The lungs are fully inflated. Heart size top limits normal. Right subclavian port ends in the lower one third of the SVC. Patchy infiltrates in the right upper lobe. The mediastinum is normal in contou r. Bony structures are intact. XR/XR acute abdomen series [id number] IMPRESSION: 1. Bilateral pulmonary infiltrates suggesting pneumonia. Small bibasal pleural effusions. Flat and erect abdomen. Scattered gas in both large and small bowel loops sugge sting mild ileus. No sign of acute bowel obstruction. No pneumoperitoneum noted . Signs of prior cholecystectomy. Partially visualized right total hip replacem ent. Postoperative and degenerative changes of the lumbar spine. Old compressio n fracture of L2. IMPRESSION: 1. Adynamic ileus. No acute abdominal process noted. Additional chronic nonacut e findings as noted above.
== END 2022-03-21 13:02 | disposition home or self-care (01) ==
LOC: RAD 13:03
PROVIDERS: PCP Family Medicine; Visit Provider Family Medicine
DX: R10.11 Right upper quadrant pain (principal); Z51.81 Encounter for therapeutic drug level monitoring; K56.0 Paralytic ileus
CPT/HCPCS: 74022; 80053; 83690; 85025; 86141

== ENCOUNTER 2022-04-06 06:00 | Oncology outpatient (recurring) (ONCR) | payer MEDICARE, SELFPAY ==
[2022-05-05 11:58] LABS: C Reactive Protein 11.7 mg/L (0.0-4.9); Lipase 11 U/L (13-60)
[2022-05-05 12:07] LABS: Erythrocyte Sedimentation Rate 10 mm/hr (0-10)
== END 2022-05-06 23:59 | disposition home or self-care (01) ==
LOC: ONCMED 05-30 07:29
PROVIDERS: PCP Family Medicine; Visit Provider Internal Medicine Medical Oncology
DX: R10.9 Unspecified abdominal pain (principal); R31.9 Hematuria, unspecified; Z85.71 Personal history of Hodgkin lymphoma; Z86.2 Personal history of diseases of the blood and blood-forming organs and certain disorders involving the immune mechanism; Z92.21 Personal history of antineoplastic chemotherapy; K21.9 Gastro-esophageal reflux disease without esophagitis; R16.1 Splenomegaly, not elsewhere classified; Z79.899 Other long term (current) drug therapy
CPT/HCPCS: 36591; 83690; 85651; 86140; 87086; 99214

== ENCOUNTER 2022-04-11 15:55 | Emergency (ER) | payer MEDICARE, SELFPAY ==
[2022-04-11 16:15] VITALS: BP 188/87; PULSE 65; RESP 16; TEMP 36.4; O2SAT 99
[2022-04-11 17:17] LABS: Basophils % 0.4 %; Eosinophils % 0.3 %; Hematocrit 42.1 % (42.0-52.0); Hemoglobin 13.3 g/dL (11.7-16.6); Lymphocytes # 1.7 10^3/uL (0.8-4.8); Lymphocytes % 22.6 %; Mean Corpuscular HGB Conc 31.6 g/dL (30.0-36.0); Mean Corpuscular Hemoglobin 27.5 pg (28.0-34.0); Mean Corpuscular Volume 87.2 fl (80-94); Mean Platelet Volume 11.9 fL (7.4-10.4); Monocytes # 0.5 10^3/uL (0.2-0.9); Monocytes % 6.4 %; Neutrophils # 5.34 10^3/uL (1.8-7.7); Neutrophils % 69.9 %; Nucleated Red Blood Cells % 0 %; Platelet Count 161 10^3/cmm (130-400); Red Blood Count 4.83 10^6/uL (4.1-5.3); White Blood Count 7.6 10^3/uL (4.0-10.0)
[2022-04-11 17:30] LABS: Alanine Aminotransferase 17 U/L (0-41); Albumin Level 4.1 g/dL (3.5-5.2); Alkaline Phosphatase 151 U/L (40-130); Anion Gap 14.5 (5-19); Aspartate Amino Transferase 22 U/L (0-40); Blood Urea Nitrogen 22 mg/dL (8-23); Calcium 9.5 mg/dL (8.5-10.5); Carbon Dioxide 27 mmol/L (22-29); Chloride 94 mmol/L (98-107); Globulin 3.3 g/dL (1.3-4.6); Glomerular Filtration Rate 83.4 mL/min (90-130); Glucose 213 mg/dL (65-115); Lipase 12 U/L (13-60); Osmolality Calculated 282 mOsm/kg (285-295); Potassium 4.5 mmol/L (3.5-5.1); Sodium 131 mmol/L (136-145); Total Bilirubin 0.7 mg/dL (0.15-1.2); Total Protein 7.4 g/dL (6.6-8.7)
--- NOTE | 2022-04-11 18:16 | PC.NURSE ---
WHILE WITH PT IN LOBBY PT IS IN NAD.
[2022-04-11 18:17] VITALS: PULSE 64; O2SAT 97
--- NOTE | 2022-04-11 20:43 | CTR_ITS ---
PROCEDURE INFORMATION: Exam: CT Abdomen And Pelvis With Contrast Exam date and time: 04/11/2022 9:36 PM Age: 72 years old Clinical indication: Constipation and nausea and vomiting; Abdominal pain; Generalized; Patient HX: C/O abd pain with constipation and n/v. History of leukemia. TECHNIQUE: Imaging protocol: Computed tomography of the abdomen and pelvis with contrast. Radiation optimization: All CT scans at this facility use at least one of these dose optimization techniques: automated exposure control; mA and/or kV adjustment per patient size (includes targeted exams where dose is matched to clinical indication); or iterative reconstruction. Contrast material: OMNI 350; Contrast volume: 100 ml; Contrast route: INTRAVENOUS (IV); COMPARISON: CT abdomen pelvis w con* [id number] 07/02/2020 5:58 PM RADIATION DOSE METRICS: Total DLP (mGy-cm): 911.54 FINDINGS: Lungs: Bibasilar right greater left atelectasis versus minimal infiltrate. Pleural spaces: Small bilateral pleural effusions. Heart: Cardiomegaly. Coronary arteries: Coronary artery atherosclerotic calcifications. Liver: Normal. No mass. Gallbladder and bile ducts: Cholecystectomy. Pancreas: Normal. No ductal dilation. Spleen: Spleen enlarged to 15 cm. Adrenal glands: Normal. No mass. Kidneys and ureters: Normal. No hydronephrosis. Stomach and bowel: Unremarkable. No obstruction. No mucosal thickening. Appendix: No evidence of appendicitis. Intraperitoneal space: Unremarkable. No free air. No significant fluid collection. Vasculature: Unremarkable. No abdominal aortic aneurysm. Lymph nodes: Unremarkable. No enlarged lymph nodes. Urinary bladder: Unremarkable as visualized. Reproductive: Unremarkable as visualized. Bones/joints: Right hip arthroplasty changes. Several chronic compression fractures in the lumbar spine similar to prior exam without retropulsion of bony fragments. Soft tissues: Unremarkable. CT/CT abdomen pelvis w con* [id number] IMPRESSION: 1. Small bilateral pleural effusions. 2. Coronary artery atherosclerotic calcifications. 3. Cardiomegaly. 4. Bibasilar right greater left atelectasis versus minimal infiltrate. 5. Cholecystectomy. 6. Right hip arthroplasty changes. 7. Several chronic compression fractures in the lumbar spine similar to prior exam without retropulsion of bony fragments. 8. Spleen enlarged to 15 cm.
--- NOTE | 2022-04-11 20:48 | W.ED.NAVMDI ---
HPI - Nausea/Vomiting/Diarrhea General: Chief complaint: Nausea/Vomiting/Diarrhea Stated complaint: Jaziel sent for possible bowel blockage Time Seen by Provider: 04/11/22 20:42 Source: patient Limitations: no limitations History of Present Illness: 72-year-old male states has been having vomiting along with abdominal pain over the last week has had multiple episodes of vomiting states he did have an episode of diarrhea today states had bowel obstruction the past he is concerned he has another bowel obstruction. States pain is a cramping pain diffuse he rates it a 3 out of 10 denies any chest pain denies any radiation of his pain. Associated nausea: Yes Associated symtoms: Reports nausea; Denies chest pain, dysuria or headache(s) Review of Systems Const: Denies: fever(s), chills, body aches or change in appetite Eyes: Denies: blurry vision or eye discomfort ENMT: Denies: throat pain or dental pain Card: Denies: chest pain Resp: Denies: dyspnea GI: Reports: abdominal pain, nausea and vomiting : Denies: dysuria Musc: Denies: neck pain or back pain Skin/Breast: Denies: rash Neuro: Denies: headache(s) Psych: Denies: depression Kristopher/Lymph: Denies: easy bruising All/Imm: Denies: urticaria PFSH ED PFSH: Medical History Essential hypertension Type 2 diabetes mellitus without complications Social History Smoking and tobacco status: never smoked Physical Exam Const: COMMON NORMALS: no acute distress, patient oriented x3 and healthy appearing HENMT: COMMON NORMALS: normocephalic and atraumatic HEAD & SCALP: normocephalic and atraumatic Eye: COMMON NORMALS: Equal, round and reactive pupils present and EOMs intact bilaterally PUPIL: Yes Equal, round and reactive pupils present Neck/C-Spine: COMMON NORMALS: full ROM and supple Chest: COMMONS NORMALS: normal inspection of the chest and normal palpation of entire chest wall Resp: COMMON NORMALS: normal respiratory effort, No retractions, No use of accessory muscles and clear to auscultation bilaterally AUSCULTATION: clear to auscultation bilaterally Cardio: COMMON NORMALS: regular rate, regular rhythm and No murmurs present (Cardio) RATE: regular rate RHYTHM: regular rhythm GI: COMMON NORMALS: Normal to inspection, nondistended, normoactive bowel sounds present, Soft to palpation, non-tender and no masses PALPATION: Yes Soft to palpation Extremity: COMMON NORMALS: normal to inspection and full ROM Neuro: COMMON NORMALS: patient oriented x3, moves all extremities and no focal motor deficits Psych: COMMON NORMALS: mental status grossly normal, Normal thought process present and cooperative THOUGHT PROCESS: Normal thought process present Skin: COMMON NORMALS: no rashes or lesions noted and no wounds GENERAL SKIN EXAM: no rashes or lesions noted Course Vital Signs: Vital signs: Vital Signs Temperature 97.6 F 04/11/22 16:15 Pulse Rate 74 04/11/22 22:04 Respiratory Rate 17 04/11/22 22:04 Blood Pressure 186/93 04/11/22 22:04 Pulse Oximetry 96 04/11/22 22:04 Oxygen Delivery Me thod 04/11/22 22:04 MDM - Nausea/Vomiting/Diarrhea Medical Decision Making Patient presents here with vomiting with some diarrhea is likely viral in origin patient's blood work CT here are normal he feels much improved after Zofran I feel he stable for discharge she is to follow-up with PCP and return if worsening will prescribe him Zofran for home. Lab Data 04/11/22 16:32 04/11/22 16:32 Radiology Impressions Abdomen/Pelvis CT 04/11/22 20:43 IMPRESSION: 1. Small bilateral pleural effusions. 2. Coronary artery atherosclerotic calcifications. 3. Cardiomegaly. 4. Bibasilar right greater left atelectasis versus minimal infiltrate. 5. Cholecystectomy. 6. Right hip arthroplasty changes. 7. Several chronic compression fractures in the lumbar spine similar to prior exam without retropulsion of bony fragments. 8. Spleen enlarged to 15 cm. Laboratory Results WBC 7.6 10^3/uL (4.0-10.0) 04/11/22 16:32 RBC 4.83 10^6/uL (4.1-5.3) 04/11/22 16:32 Hgb 13.3 g/dL (11.7-16.6) 04/11/22 16:32 Hct 42.1 % (42.0-52.0) 04/11/22 16:32 MCV 87.2 fl (80-94) 04/11/22 16:32 MCH 27.5 pg (28.0-34.0) L 04/11/22 16:32 MCHC 31.6 g/dL (30.0-36.0) 04/11/22 16:32 RDW 15.0 % (12.1-15.1) 04/11/22 16:32 Plt Count 161 10^3/cmm (130-400) 04/11/22 16:32 MPV 11.9 fL (7.4-10.4) H 04/11/22 16:32 Neut % (Auto) 69.9 % 04/11/22 16:32 Lymph % (Auto) 22.6 % 04/11/22 16:32 [place] % (Auto) 6.4 % 04/11/22 16:32 Eos % (Auto) 0.3 % 04/11/22 16:32 Baso % (Auto) 0.4 % 04/11/22 16:32 Neut # (Auto) 5.34 10^3/uL (1.8-7.7) 04/11/22 16:32 Lymph # (Auto) 1.7 10^3/uL (0.8-4.8) 04/11/22 16:32 [place] # (Auto) 0.5 10^3/uL (0.2-0.9) 04/11/22 16:32 Eos # (Auto) 0.0 10^3/uL (0.0-0.8) 04/11/22 16:32 Baso # (Auto) 0.0 10^3/uL (0.0-0.1) 04/11/22 16:32 Nucleated RBC % (auto) 0 % 04/11/22 16:32 Nucleated RBCs # 0.0 /100WBC 04/11/22 16:32 Sodium 131 mmol/L (136-145) L 04/11/22 16:32 Potassium 4.5 mmol/L (3.5-5.1) 04/11/22 16:32 Chloride 94 mmol/L (98-107) L 04/11/22 16:32 Carbon Dioxide 27 mmol/L (22-29) 04/11/22 16:32 Anion Gap 14.5 (5-19) 04/11/22 16:32 BUN 22 mg/dL (8-23) 04/11/22 16:32 Creatinine 0.9 mg/dL (0.7-1.2) 04/11/22 16:32 GFR Calculation 83.4 mL/min (90-130) L 04/11/22 16:32 Glucose 213 mg/dL (65-115) H 04/11/22 16:32 Calculated Osmolality 282 mOsm/kg (285-295) L 04/11/22 16:32 Calcium 9.5 mg/dL (8.5-10.5) 04/11/22 16:32 Total Bilirubin 0.7 mg/dL (0.15-1.2) 04/11/22 16:32 AST 22 U/L (0-40) 04/11/22 16:32 ALT 17 U/L (0-41) 04/11/22 16:32 Alkaline Phosphatase 151 U/L (40-130) H 04/11/22 16:32 Total Protein 7.4 g/dL (6.6-8.7) 04/11/22 16:32 Albumin 4.1 g/dL (3.5-5.2) 04/11/22 16:32 Globulin 3.3 g/dL (1.3-4.6) 04/11/22 16:32 Lipase 12 U/L (13-60) L 04/11/22 16:32 Discharge Plan Discharge Patient Disposition: Home Clinical Impression: Vomiting Condition: Stable Prescriptions: New ondansetron 4 mg tablet,disintegrating 4 mg PO Q6H PRN (Reason: nausea and vomiting) Qty: 14 0RF No Action All Day Allergy (cetirizine) 10 mg capsule 10 mg PO DAILY PRN (Reason: Allergy Symptoms) naproxen sodium [Flanax (naproxen)] 220 mg tablet 220 mg PO BID PRN (Reason: Pain) lactulose 10 gram/15 mL (15 mL) solution 10 g PO DAILY PRN (Reason: constipation) Qty: 750 0RF potassium chloride [Klor-Con 10] 10 mEq tablet extended release 10 meq PO DAILY Qty: 30 6RF albuterol sulfate [ProAir HFA] 90 mcg/actuation HFA aerosol inhaler 2 puff inhalation Q6H PRN (Reason: shortness of breath or wheezing) Qty: 8.5 6RF furosemide 40 mg tablet See Rx Instructions .ROUTE .COMPLEX Qty: 90 3RF Dose Instruction: TAKE 1 TABLET BY MOUTH DAILY Rx Instructions: TAKE 1 TABLET BY MOUTH DAILY doxycycline monohydrate 100 mg capsule 100 mg PO BID Qty: 20 0RF acetaminophen [Tylenol Arthritis Pain] 650 mg Tablet Extended Release 1,300 mg PO PRN gabapentin 800 mg Tablet 800 mg PO QID losartan 25 mg Tablet 25 mg PO QAM insulin glargine [Lantus Solostar U-100 Insulin] 100 unit/mL (3 mL) Insulin Pen See Rx Instructions .ROUTE .COMPLEX Rx Instructions: 30 UNITS AM AND 30 UNITS PM oxycodone 10 mg tablet 10 - 20 mg PO Q4H MDD 6 tab PRN (Reason: Pain) insulin lispro [Humalog U-100 Insulin] 100 unit/mL Solution See Rx Instructions .ROUTE .COMPLEX Rx Instructions: sliding scale tid Dramamine 50 mg Tablet 50 mg PO Q8H PRN (Reason: Dizziness) Dulcolax (bisacodyl) 10 mg Suppository 10 mg MD DAILY PRN (Reason: Constipation) Centrum Silver Men 300-600-300 mcg Tablet 1 tab PO DAILY Discharge Orders: Discharge ED (Routine); Ordered 04/11/22 Ordered By: Huang Ridley Referrals: Ramirez Sheriff MD [Primary Care Provider] - 1-3 days Discharge Diet: Advance as tolerated Discharge Activity: Resume usual activity Patient Instructions: Acute Nausea and Vomiting (ED) Coding 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
[2022-04-11] MEDS: HYDROmorphone 1 mg/mL INJ 1 mL 0.5 MG IVP (21:57)
[2022-04-11] MEDS: ondansetron 2 mg/ML SDV 2 mL 4 MG IVP (21:57)
[2022-04-11 22:04] VITALS: BP 186/93; PULSE 74; RESP 17; O2SAT 96
[2022-04-11 22:41] LABS: Add Urine Microscopic? YES; Bilirubin Urine Neg (Negative); Blood Urine 2+ (Negative); Glucose Urine UA Norm (Normal); Ketones Urine Negative (Negative); Leukocyte Esterase Urine Negative (Negative); Nitrate Urine Negative (Negative); Protein Urine 3+ (Negative); Specific Gravity, Urine 1.015 (1.005-1.030); Urine Appearance Clear (CLEAR); Urine Color Yellow (Yellow); Urobilinogen Urine Norm (Negative); pH Urine 5 (5-7)
[2022-04-11 22:42] LABS: Add Urine Culture? No; Amorphous Sediment Urine 1+ /hpf; Mucus Urine 1+ /hpf; Squamous Epithelial Cell Urine 0-4 /hpf (0-5)
[2022-04-11 22:51] VITALS: PULSE 62; O2SAT 96
== END 2022-04-11 22:56 | disposition home or self-care (01) ==
PROVIDERS: Emergency Medicine; Emergency Provider Emergency Medicine; PCP Family Medicine
DX: R11.10 Vomiting, unspecified (principal)
CPT/HCPCS: 36415; 74177; 80053; 81001; 83690; 85025; 96374; 96375; 99285; J1170; J2405; Q9967

== ENCOUNTER 2022-05-30 07:46 | Oncology outpatient (recurring) (ONCR) | payer MEDICARE, SELFPAY ==
[2022-05-30 08:22] LABS: Basophils # 0.1 10^3/uL (0.0-0.1); Basophils % 1.5 %; Eosinophils # 0.3 10^3/uL (0.0-0.8); Eosinophils % 6.6 %; Hematocrit 43.1 % (42.0-52.0); Hemoglobin 13.4 g/dL (11.7-16.6); Lymphocytes # 1.6 10^3/uL (0.8-4.8); Lymphocytes % 40.4 %; Mean Corpuscular HGB Conc 31.1 g/dL (30.0-36.0); Mean Corpuscular Hemoglobin 27.9 pg (28.0-34.0); Mean Corpuscular Volume 89.6 fl (80-94); Mean Platelet Volume 11.5 fL (7.4-10.4); Monocytes # 0.2 10^3/uL (0.2-0.9); Monocytes % 6.1 %; Neutrophils # 1.76 10^3/uL (1.8-7.7); Neutrophils % 45.1 %; Nucleated Red Blood Cells % 0 %; Platelet Count 121 10^3/cmm (130-400); Red Blood Count 4.81 10^6/uL (4.1-5.3); Red Cell Distribution Width 16.5 % (12.1-15.1); White Blood Count 3.9 10^3/uL (4.0-10.0)
--- NOTE | 2022-05-30 08:23 | CT_ITS ---
WS: [id number] CT ABDOMEN PELVIS TECHNIQUE: Contrast-enhanced CT of the abdomen and pelvis with coronal and sagittal reformatted image s. CLINICAL INFORMATION: ABD PAIN/PAIN OF UPPER ABD COMPARISON: CT April 11, 2022 DLP: 919.[address] scans at [facility] use at least one of these dose optimization techniques: automated e xposure control; mA and/or kV adjustment per patient size (includes targeted exams where dose is matc hed to clinical indication); or iterative reconstruction. FINDINGS: Small RIGHT and tiny LEFT pleural effusions. Slight RIGHT basilar atelectasis. Diffuse fatty infiltra tion liver. Splenomegaly with diffuse heterogeneous enhancement. Spleen measures 16.4 cm [id number] . This is progressed compared to April 11, 2022. Cholecystectomy clips. Normal portal vein and splenic vein. Cardiomegaly. Normal GE junction. Fatty a trophy of the pancreas. Adrenal glands are normal. Normal caliber abdominal aorta. Normal renal paren chymal enhancement. No hydronephrosis. Celiac and SMA are patent. Dense sigmoid constipation. Postoperative changes RIGHT JOY. Reversal normal lumbar lordosis. Chronic anterior wedging and ankylosis in the lumbar spine is unchanged with focal kyphosis at L2. CT/CT abdomen pelvis w con* [id number] IMPRESSION: 1. Small RIGHT and tiny LEFT pleural effusions. 2. Cardiomegaly. 3. Hepatomegaly with diffuse fatty infiltration liver. Splenomegaly measures 1 6.4 cm [id number] and appears progressed compared to previous with heterogene ous splenic enhancement. Recommend correlation with laboratory markers. 4. No abdominal or pelvic lymphadenopathy. No inguinal lymphadenopathy. 5. Stable chronic compression and anterior wedging in the lumbar spine.
[2022-05-30] MEDS: iohexol 350 mg/mL 500 mL Btl (per mL) IV (08:43)
[2022-05-30] MEDS: iohexol 350 mg/mL 500 mL Btl (per mL) PO (08:43)
[2022-05-30 08:50] LABS: Alanine Aminotransferase 23 U/L (0-41); Albumin Level 4.5 g/dL (3.5-5.2); Alkaline Phosphatase 196 U/L (40-130); Anion Gap 15.7 (5-19); Aspartate Amino Transferase 31 U/L (0-40); Blood Urea Nitrogen 13 mg/dL (8-23); Calcium 9.2 mg/dL (8.5-10.5); Carbon Dioxide 26 mmol/L (22-29); Chloride 98 mmol/L (98-107); Globulin 3.7 g/dL (1.3-4.6); Glomerular Filtration Rate 73.9 mL/min (90-130); Glucose 196 mg/dL (65-115); Osmolality Calculated 286 mOsm/kg (285-295); Potassium 4.7 mmol/L (3.5-5.1); Sodium 135 mmol/L (136-145); Total Bilirubin 0.3 mg/dL (0.15-1.2); Total Protein 8.2 g/dL (6.6-8.7)
[2022-05-30 09:17] LABS: Bilirubin Urine Neg (Negative); Blood Urine Neg (Negative); Glucose Urine UA Norm (Normal); Ketones Urine Negative (Negative); Leukocyte Esterase Urine Negative (Negative); Nitrate Urine Negative (Negative); Protein Urine 1+ (Negative); RBC Urine RARE /hpf (0-2); Specific Gravity, Urine 1.015 (1.005-1.030); Squamous Epithelial Cell Urine RARE /hpf (0-5); Urine Appearance Clear (CLEAR); Urine Color Yellow (Yellow); Urobilinogen Urine Norm (Negative); pH Urine 6 (5-7)
== END 2022-06-06 23:59 | disposition home or self-care (01) ==
LOC: ONCMED 07:48
PROVIDERS: PCP Family Medicine; Visit Provider Internal Medicine Medical Oncology
DX: R31.9 Hematuria, unspecified; R10.9 Unspecified abdominal pain; J90 Pleural effusion, not elsewhere classified; I51.7 Cardiomegaly; R16.2 Hepatomegaly with splenomegaly, not elsewhere classified; K76.0 Fatty (change of) liver, not elsewhere classified; M51.06 Intervertebral disc disorders with myelopathy, lumbar region
CPT/HCPCS: 36415; 74177; 80053; 81001; 85025; Q9967

== ENCOUNTER 2022-07-13 23:22 | Inpatient (IN) | payer MEDICARE, SELFPAY ==
[2022-07-13 23:22] VITALS: BP 162/99; PULSE 107; RESP 24; TEMP 39.5; O2SAT 93; BMI 31.9
--- NOTE | 2022-07-13 23:26 | XRR_ITS ---
PROCEDURE INFORMATION: Exam: XR Chest Exam date and time: 07/14/2022 12:04 AM Age: 72 years old Clinical indication: Fever and shortness of breath; Prior surgery; Surgery type: Chest port; Patient HX: Arrival via EMS for AMS. Patient unresponsive with very labored breathing and fever. History of lymphoma. TECHNIQUE: Imaging protocol: Radiologic exam of the chest. Views: 1 view. COMPARISON: CR XR chest 2V* [id number] 06/28/2021 2:19 PM FINDINGS: Tubes, catheters and devices: Right-sided Port-A-Cath with tip in the superior vena cava. Lungs: Patchy bilateral right greater than left airspace infiltrates. Pleural spaces: Trace bilateral pleural effusions. Heart/Mediastinum: Cardiomegaly. Bones/joints: Unremarkable. XR/XR chest 1V portable [id number] IMPRESSION: 1. Cardiomegaly. 2. Trace bilateral pleural effusions. 3. Patchy bilateral right greater than left airspace infiltrates
--- NOTE | 2022-07-13 23:26 | CTR_ITS ---
PROCEDURE INFORMATION: Exam: CT Head Without Contrast Exam date and time: 07/14/2022 12:35 AM Age: 72 years old Clinical indication: Altered mental status/memory loss; Patient HX: Arrival via EMS for AMS. Patient acting very confused and unintelligible with SOB and fever. Bacteriuria. History of lymphoma. TECHNIQUE: Imaging protocol: Computed tomography of the head without contrast. Radiation optimization: All CT scans at this facility use at least one of these dose optimization techniques: automated exposure control; mA and/or kV adjustment per patient size (includes targeted exams where dose is matched to clinical indication); or iterative reconstruction. REPORTING DATA: Count of CT and Cardiac NM exams in prior 12 months: This patient has received 3 known CTs and 0 known cardiac nuclear medicine studies in the 12 months prior to the current study. COMPARISON: No relevant prior studies available. RADIATION DOSE METRICS: Total DLP (mGy-cm): 814.68 FINDINGS: Brain: No acute intra- or extra axial fluid collections are identified. The basal cisterns are patent. No mass effect or midline shift is seen. The rojas-white matter differentiation is normal. Periventricular hypoattenuation are nonspecific but likely the sequela of chronic small vessel ischemic disease. Cerebral ventricles: Mild cerebral volume loss and ex vacuo dilation of the ventricles.. Paranasal sinuses: Minimal paranasal sinus disease. The paranasal sinuses appear otherwise grossly clear. No air-fluid levels. The nasal septum is deviated to the left with a septal spur in contact with the left inferior turbinate. Mastoid air cells: The mastoid air cells appear grossly clear. Orbital cavities: The patient is status post left cataract extraction. The orbits appear otherwise grossly unremarkable. Bones/joints: No acute calvarial fracture is identified. Soft tissues: No soft tissue abnormalities identified. Vasculature: There are atherosclerotic calcifications of the carotid siphons. CT/CT head wo con* [id number] IMPRESSION: 1. No evidence of acute intracranial hemorrhage, mass effect, or midline shift. 2. Please note that CT is insensitive to nonhemorrhagic strokes and MRI of the brain should be considered if there is clinical concern for acute cerebral infarction.
[2022-07-13 23:29] LABS: Glucose Point of Care 323 mg/dL (70-110)
--- NOTE | 2022-07-13 23:35 | ED_ITS ---
HPI - General Adult General: Chief complaint: Altered Mental Status Stated complaint: AMS Time Seen by Provider: 07/13/22 23:23 Source: EMS Mode of arrival: EMS Limitations: altered mental status History of Present Illness: 72-year-old male who is here by EMS with fever and altered mental status family states they last saw him normal 12 hours ago when they found him he was covered in urine and feces and altered here he responds to painful stimuli he is not able answer any questions he does have a fever 103 no known recent illness per EMS family did not know of any cough or any issues that they had been having just and found him today altered he is a diabetic as well. 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 Myelodysplastic syndrome Initially diagnosed in July 2002 Obstructive sleep apnea Peripheral neuropathy Type 2 diabetes mellitus without complications Surgical History 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) History of lumbar laminectomy History of tonsillectomy History of total right hip arthroplasty (2015) S/P ORIF (open reduction internal fixation) fracture (2014) Status post creation of pericardial window (2008) Social History Smoking and tobacco status: never smoked Physical Exam Const: COMMON NORMALS: negative for patient oriented x3 GENERAL APPEARANCE: ill appearing HENMT: COMMON NORMALS: normocephalic and atraumatic HEAD & SCALP: normocephalic and atraumatic Eye: COMMON NORMALS: Equal, round and reactive pupils present and EOMs intact bilaterally PUPIL: Yes Equal, round and reactive pupils present Neck/C-Spine: COMMON NORMALS: full ROM and supple Chest: COMMONS NORMALS: normal inspection of the chest and normal palpation of entire chest wall Resp: COMMON NORMALS: normal respiratory effort, No retractions, No use of accessory muscles and clear to auscultation bilaterally AUSCULTATION: clear to auscultation bilaterally Cardio: COMMON NORMALS: regular rhythm and No murmurs present (Cardio) RATE: tachycardic RHYTHM: regular rhythm GI: COMMON NORMALS: Normal to inspection, nondistended, normoactive bowel soun ds present, Soft to palpation, non-tender and no masses PALPATION: Yes Soft to palpation Extremity: COMMON NORMALS: normal to inspection and full ROM Neuro: COMMON NORMALS: moves all extremities and no focal motor deficits; negative for patient oriented x3 Psych: COMMON NORMALS: cooperative; negative for mental status grossly normal and negative for Normal thought process present THOUGHT PROCESS: abnormal Skin: COMMON NORMALS: no rashes or lesions noted and no wounds GENERAL SKIN EXAM: no rashes or lesions noted Course Vital Signs: Vital signs: Vital Signs Temperature 99.8 F H 07/14/22 01:20 Pulse Rate 99 07/14/22 01:33 Respiratory Rate 22 H 07/14/22 01:33 Blood Pressure 128/58 07/14/22 01:33 Pulse Oximetry 100 07/14/22 01:33 Oxygen Delivery Me thod 07/14/22 00:17 Oxygen Flow Rate 3 07/14/22 00:17 [facility] - General Adult Medical Decision Making Patient presents here with fever along with altered mental status he does have an acute cystitis likely causing this his fevers improved his mental status is improved as well although he does still have some confusion lactates mildly el evated his blood pressures here been normal patient is given IV antibiotics I spoke to the hospitalist and will admit. Lab Data 07/13/22 23:32 07/13/22 23:32 Radiology Impressions Chest X-Ray 07/13/22 23:26 IMPRESSION: 1. Cardiomegaly. 2. Trace bilateral pleural effusions. 3. Patchy bilateral right greater than left airspace infiltrates Head CT 07/13/22 23:26 IMPRESSION: 1. No evidence of acute intracranial hemorrhage, mass effect, or midline shift. 2. Please note that CT is insensitive to nonhemorrhagic strokes and MRI of the brain should be considered if there is clinical concern for acute cerebral infarction. Chest/Abdomen/Pelvis CT 07/14/22 00:08 IMPRESSION: 1. Negative for pulmonary embolus. 2. Moderate to large bilateral pleural effusions. 3. Pulmonary vascular congestion. 4. Cardiomegaly. 5. Scattered enlarged mediastinal lymph nodes measuring up to 13.9 mm, nonspecific. 6. Coronary artery atherosclerotic 7. Right-sided central venous catheter. 8. Ascending thoracic aorta is somewhat dilated at 3.7 cm. IMPRESSION: 1. Urinary bladder wall thickening may reflect a cystitis or be due to nondistention, please correlate clinically. 2. L2 vertebral body compression fracture without retropulsion of bony fragments. 3. Right hip arthroplasty changes. 4. Cholecystectomy. 5. Spleen enlarged to 16.8 cm. 6. Diverticulosis without diverticulitis. 7. Bledsoe catheter in the urinary bladder with air presumed iatrogenic. Laboratory Results WBC 9.1 10^3/uL (4.0-10.0) 07/13/22 23: RBC 4.05 10^6/uL (4.1-5.3) L 07/13/22 23: Hgb 11.9 g/dL (11.7-16.6) 07/13/22: Hct 38.4 % (42.0-52.0) L 07/13/22: MCV 94.8 fl (80-94) H 07/13/22 23: MCH 29.4 pg (28.0-34.0) 07/13/22 23: MCHC 31.0 g/dL (30.0-36.0) 07/13/22 23: RDW 16.3 % (12.1-15.1) H 07/13/22 23: Plt Count 103 10^3/cmm (130-400) L 07/13/22: MPV 11.5 fL (7.4-10.4) H 07/13/22 23: Lymph % (Auto) Not Reportable 07/13/22: [place] % (Auto) Not Reportable 07/13/22: Lymph # (Auto) Not Reportable 07/13/22: [place] # (Auto) Not Reportable 07/13/22 23: Total Counted 100 (0-100) 07/13/22 23: Atypical Lymphs % 0.0 % (0-5) 07/13/22: Absolute Neutrophils 8.5 10^3/cmm (1.4-6.5) H 07/13/22 23:32 Segmented Neutrophils 81 % 07/13/22 23:32 Abs Segm Neuts (Man) 7.4 10/cmm (1.6-7.1) H 07/13/22 23:32 Band Neutrophils 12.0 % 07/13/22 23:32 Abs Band Neuts (Man) 1.1 10^3/cmm (0.0-1.2) 07/13/22 23:32 Absolute Lymphocytes 0.5 10^3/cmm (1.2-3.4) L 07/13/22 23:32 Lymphocytes (Manual) 5 % 07/13/22 23:32 Monocytes (Manual) 2.0 % 07/13/22 23: Absolute Monocytes 0.2 10^3/cmm (0.1-0.6) 07/13/22 23:32 Eosinophils (Manual) 0 % 07/13/22 23: Absolute Eosinophils 0.0 10^3/cmm (0.0-0.7) 07/13/22 23:32 Basophils (Manual) 0.0 % 07/13/22 23:32 Absolute Basophils 0.0 10^3/cmm (0.0-0.2) 07/13/22 23:32 Platelet Estimate Decreased (Normal) 07/13/22 23:32 Polychromasia 1+ H 07/13/22 23:32 Macrocytosis 2+ H 07/13/22 23:32 Spherocytes Trace 07/13/22 23:32 PT 16.70 SECONDS (12.1-14.9) H 07/13/22 23:32 INR 1.31 (0.8-1.2) H 07/13/22 23:32 Specimen Type Arterial 07/13/22 00:20 Sample Site Radial, right 07/13/22 00:20 ABG pH 7.43 (7.35-7.45) 07/13/22 00:20 ABG pCO2 33.3 mmHg (35-45) L 07/13/22 00:20 ABG pO2 59.7 mmHg (80.0-100.0) L 07/13/22 00:20 ABG HCO3 22.1 mmol/L (22-26) 07/13/22 00:20 ABG Base Excess -1.6 mmol/L (-2.0-2.0) 07/13/22 00:20 [place] Test Pos 07/13/22 00:20 Hematocrit 35.8 % (42-52) L 07/13/22 00:20 O2 Delivery Device Nc 07/13/22 00:20 O2 Liters/Min 2.0 % 07/13/22 00:20 Contract Negotiation Specialist ID Mine 07/13/22 00:20 Sodium 136 mmol/L (136-145) 07/13/22 23:32 Potassium 4.0 mmol/L (3.5-5.1) 07/13/22 23:32 Chloride 98 mmol/L (98-107) 07/13/22 23:32 Carbon Dioxide 21 mmol/L (22-29) L 07/13/22 23:32 Anion Gap 21.0 (5-19) H 07/13/22 23:32 BUN 24 mg/dL (8-23) H 07/13/22 23:32 Creatinine 1.1 mg/dL (0.7-1.2) 07/13/22 23:32 GFR Calculation 66.2 mL/min (90-130) L 07/13/22 23:32 Glucose 322 mg/dL (65-115) H 07/13/22 23:32 POC Glucose 323 mg/dL (70-110) H 07/13/22 23:26 Calculated Osmolality 298 mOsm/kg (285-295) H 07/13/22 23:32 Lactate 3.0 mmol/L (0.5-2.2) H 07/13/22 23:32 Calcium 8.9 mg/dL (8.5-10.5) 07/13/22 23:32 Magnesium 2.0 mg/dL (1.7-2.3) 07/13/22 23:32 Total Bilirubin 1.0 mg/dL (0.15-1.2) 07/13/22 23:32 AST 55 U/L (0-40) H 07/13/22 23:32 ALT 30 U/L (0-41) 07/13/22 23:32 Alkaline Phosphatase 173 U/L (40-130) H 07/13/22 23:32 C-Reactive Protein 269.7 mg/L (0.0-4.9) H 07/13/22 23:32 Total Protein 6.9 g/dL (6.6-8.7) 07/13/22 23:32 Albumin 3.2 g/dL (3.5-5.2) L 07/13/22 23:32 Globulin 3.7 g/dL (1.3-4.6) 07/13/22 23:32 Urine Color Dark yellow (Yellow) 07/13/22 23:56 Urine Appearance Clear (CLEAR) 07/13/22 23:56 Urine pH 5 (5-7) 07/13/22 23:56 Ur Specific [place] 1.020 (1.005-1.030) 07/13/22 23:56 Urine Protein 3+ (Negative) H 07/13/22 23:56 Urine Glucose (UA) 2+ (Normal) H 07/13/22 23:56 Urine Ketones 2+ (Negative) H 07/13/22 23:56 Urine Blood 3+ (Negative) H 07/13/22 23:56 Urine Nitrate Positive (Negative) H 07/13/22 23:56 Urine Bilirubin 1+ (Negative) H 07/13/22 23:56 Urine Urobilinogen 1 mg/dL (Negative) H 07/13/22 23:56 Ur Leukocyte Esterase Trace (Negative) H 07/13/22 23:56 Urine RBC 5-10 /hpf (0-2) H 07/13/22 23:56 Urine WBC 0-4 /hpf (0-5) H 07/13/22 23:56 Ur Squamous Epith Cells 0-4 /hpf (0-5) H 07/13/22 23:56 Amorphous Sediment 1+ /hpf 07/13/22 23:56 Urine Bacteria 2+ /hpf (NONE) H 07/13/22 23:56 Ethyl Alcohol < 10 mg/dL (0-10) 07/13/22 23:32 Influenza Type A Ag negative (Negative) 07/13/22 23:33 Influenza Type B Ag negative (Negative) 07/13/22 23:33 SARS-CoV-2 Ag (Rapid) negative (Negative) 07/13/22 23:33 Critical Care Time Critical Care Time: Critical Care Time: Yes Total Critical Care Time: 45 Attestation: The high probability of a clinically significant, sudden or life threatening deterioration of the patient's gu system(s) required my full and direct attention, intervention and personal management. The critical care time is as shown. This time is in addition to time spent performing any reported procedures but includes the following: [x] Data and vital sign review and interpretation [x] Patient assessment, examination and intervention [x] Documentation [x] Medication orders and management Discharge Plan Discharge Patient Disposition: Admitted As Inpatient Admit Provider: Anu Preciado Clinical Impression: Acute cystitis, Altered mental status Condition: Stable Coding Level of Care Code ED Filler Sifter Helper for Kelly Dudley
[2022-07-13] MEDS: vancomycin 1,000 MG in sodium chloride 0.9% 250 ML 250 MG IV (23:41)
[2022-07-13] MEDS: piperacillin-tazobactam 3.375 GM in sodium chloride 0.9% (plus) 50 ML IV (23:41)
[2022-07-13] MEDS: sodium chloride 0.9% 1,000 ML 999 ML IV ×2 (23:44→23:53)
[2022-07-14] VITALS (97 sets, daily range): BP systolic 51–149; BP diastolic 35–93; PULSE 77–118; RESP 15–38; TEMP 37.3–38.8; O2SAT 83–100
[2022-07-14] LABS: Alanine Aminotransferase 30 U/L (0-41); Albumin Level 3.2 g/dL (3.5-5.2); Alcohol Level < 10 mg/dL (0-10); Alkaline Phosphatase 173 U/L (40-130); Aspartate Amino Transferase 55 U/L (0-40); Blood Urea Nitrogen 24 mg/dL (8-23); C Reactive Protein 269.7 mg/L (0.0-4.9); Calcium 8.9 mg/dL (8.5-10.5); Carbon Dioxide 21 mmol/L (22-29); Chloride 98 mmol/L (98-107); Globulin 3.7 g/dL (1.3-4.6); Glomerular Filtration Rate 66.2 mL/min (90-130); Glucose 322 mg/dL (65-115); Osmolality Calculated 298 mOsm/kg (285-295); Sodium 136 mmol/L (136-145); Total Protein 6.9 g/dL (6.6-8.7)
[2022-07-14 00:08] LABS: Urine Appearance Clear (CLEAR); Urine Color Dark Yellow (Yellow); pH Urine 5 (5-7)
--- NOTE | 2022-07-14 00:08 | CTR_ITS ---
PROCEDURE INFORMATION: Exam: CTA Chest With Contrast Exam date and time: 07/14/2022 12:39 AM Age: 72 years old Clinical indication: Shortness of breath; Prior surgery; Surgery type: Chest port. Lumbar laminectomy. RT mason. Patient HX: Arrival via EMS for AMS. Patient acting very confused and unintelligible with SOB and fever. Bacteriuria. History of lymphoma. TECHNIQUE: Imaging protocol: Computed tomographic angiography of the chest with contrast. 3D rendering (Not supervised by radiologist): MIP and/or 3D reconstructed images were created by the technologist. Radiation optimization: All CT scans at this facility use at least one of these dose optimization techniques: automated exposure control; mA and/or kV adjustment per patient size (includes targeted exams where dose is matched to clinical indication); or iterative reconstruction. Contrast material: OMNI 350; Contrast volume: 100 ml; Contrast route: INTRAVENOUS (IV); REPORTING DATA: Count of CT and Cardiac NM exams in prior 12 months: This patient has received 3 known CTs and 0 known cardiac nuclear medicine studies in the 12 months prior to the current study. COMPARISON: CT chest abdpel w/*[id number] 06/02/2020 10:18 AM RADIATION DOSE METRICS: Total DLP (mGy-cm): 983.48 FINDINGS: Tubes, catheters and devices: Right-sided central venous catheter. Pulmonary arteries: Pulmonary vascular congestion. Aorta: Ascending thoracic aorta is somewhat dilated at 3.7 cm. Lungs: Unremarkable. No consolidation. No masses. Pleural spaces: Moderate to large bilateral pleural effusions. Heart: Cardiomegaly. Coronary arteries: Coronary artery atherosclerotic Lymph nodes: Scattered enlarged mediastinal lymph nodes measuring up to 13.9 mm, nonspecific. Bones/joints: Unremarkable. No acute fracture. Soft tissues: Unremarkable. PROCEDURE INFORMATION: Exam: CT Abdomen And Pelvis With Contrast Exam date and time: 07/14/2022 12:39 AM Age: 72 years old Clinical indication: Shortness of breath; Prior surgery; Surgery type: Chest port. Lumbar laminectomy. RT mason. Patient HX: Arrival via EMS for AMS. Patient acting very confused and unintelligible with SOB and fever. Bacteriuria. History of lymphoma. TECHNIQUE: Imaging protocol: Computed tomography of the abdomen and pelvis with contrast. Radiation optimization: All CT scans at this facility use at least one of these dose optimization techniques: automated exposure control; mA and/or kV adjustment per patient size (includes targeted exams where dose is matched to clinical indication); or iterative reconstruction. Contrast material: OMNI 350; Contrast volume: 100 ml; Contrast route: INTRAVENOUS (IV); REPORTING DATA: Count of CT and Cardiac NM exams in prior 12 months: This patient has received 3 known CTs and 0 known cardiac nuclear medicine studies in the 12 months prior to the current study. COMPARISON: CT abdomen pelvis w con* [id number] 04/11/2022 9:36 PM RADIATION DOSE METRICS: Total DLP (mGy-cm): 983.48 FINDINGS: Liver: Normal. No mass. Gallbladder and bile ducts: Cholecystectomy. Pancreas: Normal. No ductal dilation. Spleen: Spleen enlarged to 16.8 cm. Adrenal glands: Normal. No mass. Kidneys and ureters: Normal. No hydronephrosis. Stomach and bowel: Diverticulosis without diverticulitis. Appendix: No evidence of appendicitis. Intraperitoneal space: Unremarkable. No free air. No significant fluid collection. Vasculature: Unremarkable. No abdominal aortic aneurysm. Lymph nodes: Unremarkable. No enlarged lymph nodes. Urinary bladder: Urinary bladder wall thickening may reflect a cystitis or be due to nondistention, please correlate clinically. Bledsoe catheter in the urinary bladder with air presumed iatrogenic. Reproductive: Unremarkable as visualized. Bones/joints: L2 vertebral body compression fracture without retropulsion of bony fragments. Right hip arthroplasty changes. Soft tissues: Unremarkable. CT/CT angio chest w abd pel w con IMPRESSION: 1. Negative for pulmonary embolus. 2. Moderate to large bilateral pleural effusions. 3. Pulmonary vascular congestion. 4. Cardiomegaly. 5. Scattered enlarged mediastinal lymph nodes measuring up to 13.9 mm, nonspecific. 6. Coronary artery atherosclerotic 7. Right-sided central venous catheter. 8. Ascending thoracic aorta is somewhat dilated at 3.7 cm. IMPRESSION: 1. Urinary bladder wall thickening may reflect a cystitis or be due to nondistention, please correlate clinically. 2. L2 vertebral body compression fracture without retropulsion of bony fragments. 3. Right hip arthroplasty changes. 4. Cholecystectomy. 5. Spleen enlarged to 16.8 cm. 6. Diverticulosis without diverticulitis. 7. Bledsoe catheter in the urinary bladder with air presumed iatrogenic.
[2022-07-14 00:09] LABS: Add Urine Microscopic? YES; Bilirubin Urine 1+ (Negative); Blood Urine 3+ (Negative); Glucose Urine UA 2+ (Normal); Ketones Urine 2+ (Negative); Leukocyte Esterase Urine Trace (Negative); Nitrate Urine Positive (Negative); Protein Urine 3+ (Negative); Urobilinogen Urine 1 mg/dL (Negative)
[2022-07-14 00:10] LABS: Hematocrit 38.4 % (42.0-52.0); Hemoglobin 11.9 g/dL (11.7-16.6); Mean Corpuscular Hemoglobin 29.4 pg (28.0-34.0); Mean Corpuscular Volume 94.8 fl (80-94); Mean Platelet Volume 11.5 fL (7.4-10.4); Platelet Count 103 10^3/cmm (130-400); Red Blood Count 4.05 10^6/uL (4.1-5.3); Red Cell Distribution Width 16.3 % (12.1-15.1); White Blood Count 9.1 10^3/uL (4.0-10.0)
[2022-07-14 00:11] LABS: Amorphous Sediment Urine 1+ /hpf; Bacteria Urine 2+ /hpf; Squamous Epithelial Cell Urine 0-4 /hpf (0-5)
[2022-07-14 00:11] LABS: INR 1.31 (0.8-1.2)
[2022-07-14 00:12] LABS: WBC Urine 0-4 /hpf (0-5)
[2022-07-14] MEDS: acetaminophen 1,000 MG/100 ML PIGGYBACK 400 MG IV ×3 (00:14→19:55)
[2022-07-14 00:21] LABS: Influenza A by IFA negative (Negative); Influenza B by IFA negative (Negative); SARS Covid-2 Antigen negative (Negative)
[2022-07-14 00:24] LABS: ABG PCO2 33.3 mmHg (35-45); ABG PH Result 7.43 (7.35-7.45); Arterial Blood Gas Hematocrit 35.8 % (42-52); Base Excess ABG -1.6 mmol/L (-2.0-2.0); Blood Gas Allen Test Pos; Blood Gas Sample Type Arterial; HCO3 ABG 22.1 mmol/L (22-26); PO2 ABG 59.7 mmHg (80.0-100.0)
[2022-07-14 00:25] LABS: Blood Gas Sample Site Radial, right; Oxygen Device NC
[2022-07-14 00:26] LABS: Absolute Neutrophil 8.5 10^3/cmm (1.4-6.5); Absolute Segmented Neutrophil 7.4 10/cmm (1.6-7.1); Band Neutrophils Absolute 1.1 10^3/cmm (0.0-1.2); Eosinophils 0 %; Lymphocytes 5 %; Lymphocytes Absolute 0.5 10^3/cmm (1.2-3.4); Monocytes Absolute 0.2 10^3/cmm (0.1-0.6); Platelet Estimate Decreased (Normal); Segmented Neutrophils 81 %; Total Cells Counted 100 (0-100)
[2022-07-14 00:27] LABS: Polychromasia 1+; Spherocytes Trace
[2022-07-14 00:28] LABS: Macrocytosis 2+
[2022-07-14] MEDS: iohexol 350 mg/mL 500 mL Btl (per mL) IV (00:54)
--- NOTE | 2022-07-14 01:59 | ECG_ITS ---
[facility] Test Date: 2022-07-14 Pat Name: Inder Caldwell Department: Room: 106 Gender: Male [employer] Parer: : 1950 Requested By: Huang Ridley Order Number: [id number] Ana MD: Obi Rutledge M.D. Measurements Intervals [place] Rate: 96 P: 17 IA: 190 QRS: -49 QRSD: 111 T: 29 QT: 409 QTc: 519 Interpretive Statements SINUS RHYTHM WITH FREQUENT SUPRAVENTRICULAR PREMATURE COMPLEXES PATTERN CONSISTENT WITH PULMONARY DISEASE INCOMPLETE RIGHT BUNDLE BRANCH BLOCK [90+ ms QRS DURATION, TERMINAL R IN V1/V2, 40+ ms S IN I/aVL/V4/V5/V6] LEFT ANTERIOR FASCICULAR BLOCK [QRS AXIS <= -45, QR IN I, RS IN II] MINIMAL VOLTAGE CRITERIA FOR LVH, CONSIDER NORMAL VARIANT [MEETS CRITERIA IN ONE OF: R(aVL), S(V1), R(V5), R(V5/V6)+S(V1)] PROLONGED QT INTERVAL Compared to ECG 03/09/2022 10:34:44 Prolonged QT interval now present T-wave abnormality no longer present Possible ischemia no longer present Electronically Signed On 07-14-2022 15:11:19 KETTLE TENDER by Obi Rutledge M.D. [id number]
[2022-07-14 02:29] LABS: Lactate (Lactic Acid level) 2.1 mmol/L (0.5-2.2)
[2022-07-14 02:35] LABS: Troponin(5th) Baseline 110 ng/L (0-15)
[2022-07-14] MEDS: haloperidol inj 5 mg/mL INJ 1 mL 1 MG IM (03:06)
[2022-07-14] MEDS: HYDROmorphone 1 mg/mL INJ 1 mL 0.4 MG IVP (04:09)
[2022-07-14] MEDS: insulin regular-human 10 UNIT in SYRINGE 1 EACH IVP (04:09)
[2022-07-14 04:21] LABS: Glucose Point of Care 266 mg/dL (70-110)
[2022-07-14] MEDS: pantoprazole 40 mg SDV IVP ×2 (04:25→17:02)
[2022-07-14] MEDS: insulin lispro 100 unit/1 mL SUBCUT ×2 (04:25→15:34)
[2022-07-14] MEDS: enoxaparin 100 mg/mL Syringe 90 MG SUBCUT ×2 (04:26→15:35)
--- NOTE | 2022-07-14 04:44 | PC.NURSE ---
Patient very confused and combative. Does not want to stay in bed. Will not allow telemetry placed or obtained EKGs. Informed Dr Preciado. Received order for 1:1 at this time. Will continue to monitor.
[2022-07-14 05:46] LABS: Troponin 5 2HR Delta 4.8 ABS# (0-10)
[2022-07-14 05:48] LABS: Troponin 5 2HR 114.8 ng/L (0-15)
--- NOTE | 2022-07-14 06:00 | PC.NURSE ---
Patient developed decreased BP as documented. Informed Dr Preciado and received instructions to transfer patient to ICU and begin Levophed infusion. Report called and patient transferred.
--- NOTE | 2022-07-14 06:30 | USCV_ITS ---
Inder Caldwell Age: 72 Gender: M : 1950 Exam Date: 07/14/2022 11:38 Ordering Phys: Anu Preciado MD Technologist: TINY Exam Location: [facility] [place] Indication: nstemi BP: / HR: 90 Rhythm: Sinus Technical Quality: Adequate MEASUREMENTS (Male / Female) Normal Values 2D ECHO LV Diastolic Diameter PLAX 6.9 cm 4.2 - 5.9 / 3.9 - 5.3 cm LV Systolic Diameter PLAX 5.3 cm IVS Diastolic Thickness 0.9 cm 0.6 - 1.0 / 0.6 - 0.9 cm IVS Systolic Thickness 1.2 cm LVPW Diastolic Thickness 0.9 cm 0.6 - 1.0 / 0.6 - 0.9 cm LVPW Systolic Thickness 0.9 cm LVOT Diameter 2.2 cm LV Ejection Fraction 2D Teich 46.8 % LV Ejection Fraction MOD 2C 36.2 % LV Ejection Fraction 2C AL 37.7 % LA Diameter 5.0 cm M-MODE Aortic Annulus Diameter 3.1 cm LA Ao Ratio MM 1.6 MV E Point Septal Separation 0.6 cm DOPPLER AV Peak Velocity 153.0 cm/s LVOT Peak Velocity 109.0 cm/s AV Area Cont Eq vti 2.8 cm squared AV Area Cont Eq pk 2.8 cm squared MV Area PHT 4.2 cm squared Mitral E to A Ratio 1.9 MV E' Velocity 76.0 cm/s Mitral E to MV E' Ratio 22.1 Mitral E to LV E' Lateral Ratio 17.9 Mitral E to LV E' Septal Ratio 29.3 TR Peak Velocity 224.0 cm/s TR Peak Gradient 20.1 mmHg TV Peak E Velocity 84.0 cm/s Right Atrial Pressure 3.0 mmHg Pulmonary Artery Systolic Pressu 23.1 mmHg PV Peak Velocity 111.0 cm/s FINDINGS Left Ventricle Diffuse hypokinesia of the left ventricula3 with boggs LVE ejection fraction of 47%.mildly increased left ventricular cavity size. Right Ventricle The right ventricle is normal in size and function. Right Atrium The right atrium is normal in size. Left Atrium Mildly increased left atrial size. Mitral Valve Thickened mitral valve. Mitral mitral valve regurgitation. Mild mitral annular calcification. Aortic Valve Thickened aortic valve. Mild aortic valve regurgitation. Tricuspid Valve Structurally normal tricuspid valve..trace tricuspid valve regurgitation. Pulmonic Valve Trace pulmonary valve regurgitation. Pericardium Normal pericardium without effusion. Aorta Normal ascending aorta dimension. IVC The inferior vena cava appears normal. CONCLUSIONS Diffuse hypokinesia of the left ventricula with an LV ejection fraction of 47%. moderately ncreased left ventricular cavity size. Thickened mitral valve. Mildmitral valve regurgitation. Mild mitral annular calcification. Mildly increased left atrial size. Trace of tricuspid and pulmonic regurgitation Thickened aortic valve. Mild aortic valve regurgitation. There is no pericardial effusion. There are no intracardiac masses. Technically difficult study because of the poor ultrasonic window. Dr Adriana Gordon MD FAC (Electronically Signed) Final Date: 14 July 2022 18:11 S
--- NOTE | 2022-07-14 07:00 | P.HP_ITS ---
Providers/Chief Complaint Admitting Physician: Anu Preciado MD Primary Care Provider: Ramirez Sheriff MD Chief Complaint: AMS History of Present Illness Inder Caldwell is a 72 year old male with a past medical history of myelodysplastic syndrome, status post bone marrow transplant in 2005, history of lymphoma in complete remission since 2014. He is presenting today with chief co mplaints of altered mental status which was noted by the family starting 24 to 48 hours prior to admission. Patient has been experiencing mid abdominal discomfort since april of this year. He visited with his primary care provider on the at which time he was found to be extremely short of breath, have evidence of fluid overload for which she was started on Lasix. 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 He was ordered for a stress test on this day. Since yesterday he started to experience hallucinations, seeing people that were not really there, and over the course of the next 24 hours his confusion continued to get worse. He spent the whole day in his rocker being and altered mentation. states this was to the point that he was sitting there without any clothes and was incontinent of both feces and stools. She states that his urine appeared to be a little bloody. Also he had had 1 soft bowel movement which was dark in color, had foul smell. No vomiting, No cough chest pain palpitations. Review of Systems General: Reports: ROS unobtainable due to mental status Medications/Allergies Home Medications Medication Instructions Recorded Confirmed Last Taken Type acetaminophen 650 mg 1,300 mg PO PRN 08/13/19 07/14/22 Unknown History tablet,extended release (Tylenol Arthritis Pain) insulin glargine 100 unit/mL (3 See Rx Instructions .Route .COMPLEX 08/13/19 07/14/22 07/13/22 History mL) subcutaneous pen (Lantus Solostar U-100 Insulin) losartan 25 mg tablet 25 mg PO QAM 08/13/19 07/14/22 07/13/22 History oxycodone 10 mg tablet 10 mg PO 5XD PRN Pain 08/13/19 07/14/22 07/12/22 History insulin lispro 100 unit/mL See Rx Instructions .Route .COMPLEX 07/02/20 07/14/22 03/08/22 History subcutaneous solution (Humalog U-100 Insulin) naproxen sodium 220 mg tablet 220 mg PO BID PRN Pain 03/08/22 07/14/22 Unknown History (Flanax (naproxen)) dimenhydrinate 50 mg tablet 50 mg PO Q8H PRN Dizziness 03/09/22 07/14/22 Unknown History (Dramamine) wmhvhagn-nul-jhqun acid 300 1 tab PO DAILY 03/09/22 07/14/22 07/13/22 History mcg-lycopene 600 mcg-lutein 300 mcg tablet (Centrum Silver Men) albuterol sulfate 90 mcg/actuation 2 puff inhalation Q6H PRN 03/21/22 07/14/22 Unknown Rx aerosol inhaler (ProAir HFA) shortness of breath or wheezing #8.5 grams ondansetron 4 mg disintegrating 4 mg PO Q6H PRN nausea and 04/11/22 07/14/22 Unknown Rx tablet vomiting #14 tabs pantoprazole 40 mg tablet,delayed See Rx Instructions .Route 05/09/22 07/14/22 07/13/22 Rx release .COMPLEX #90 tabs gabapentin 800 mg tablet 800 mg PO QID #120 tabs 06/21/22 07/14/22 07/13/22 Rx Allergies Allergy/AdvReac Type Severity Reaction Status Date / Time carisoprodol [From Soma] Allergy Unknown Verified 05/05/22 10:46 codeine Allergy Unknown Verified 05/05/22 10:46 methadone Allergy Unknown Verified 05/05/22 10:46 morphine Allergy Unknown Verified 05/05/22 10:46 PFSH Acute PFSH: Medical History Degenerative arthritis Degenerative joint disease of spine Essential hypertension GERD (gastroesophageal reflux disease) 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 History of pericarditis 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 Iron overload 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 Myelodysplastic syndrome Initially diagnosed in July 2002 Obstructive sleep apnea Peripheral neuropathy Type 2 diabetes mellitus without complications Surgical History 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) History of lumbar laminectomy History of tonsillectomy History of total right hip arthroplasty (2015) S/P ORIF (open reduction internal fixation) fracture (2014) Status post creation of pericardial window (2008) Social History Smoking and tobacco status: never smoked Vitals/I&O/Wt Last Vital Signs Temp 99.2 F 07/14/22 03:20 Pulse 92 07/14/22 06:00 Resp 18 07/14/22 04:09 BP 94/59 07/14/22 06:00 Pulse Ox 97 07/14/22 06:00 O2 Del Method 07/14/22 03:20 O2 Flow Rate 3 07/14/22 00:17 07/13/22 07/14/22 07/14/22 22:59 06:59 14:59 Intake Total 2622.894 / 2622.894 Balance 2622.894 / 2622.894 Weight last 48 hrs Weight 95.254 kg Physical Exam Narrative: General: confused, restless , disoriented HEENT: PERRLA, pupils bilaterally equal and reactive, pallors not present Chest: Normal vesicular breath sounds, no added sounds, equal good air entry bilaterally CVS: S1-S2 regular, no murmurs, no tachycardia, no gallops, no rubs Abdomen: Soft, nontender, no organomegaly, bowel sounds present Neuro: moves all extremities in bed , unable to follow commands due to confusion Urinary Catheter Management: Bledsoe: Cath Placed During This Visit: yes Reason for Continuing Indwelling Catheter: Accurate Measurement of Urinary Output in Critically Ill Patients Urinary Catheter Date of Insertion: 07/13/22 Urinary Catheter Time of Insertion: 23:45 Data 07/13/22 23:32 07/13/22 23:32 Micro: Microbiology 07/13/22 23:20 Blood Culture - Preliminary Blood SPECIMEN COLLECTED 07/13/22 23:32 Blood Culture - Preliminary Blood SPECIMEN COLLECTED A&P Assessment and plan (1) Sepsis: As evidenced by fever 103 Fahrenheit upon admission, elevated lactate, tachycardia, signs of endorgan dysfunction by way of altered mentation and NSTEMI. UA positive for leukocyte esterase, nitrate, few WBC, may be potential source of infection. This is a catheterized urine which was placed in the emergency room. He has received 2 L of sepsis bolus in the emergency room, will avoid further fluids as patient clinically appears to be fluid overloaded. Started on empiric antibiotic coverage with piperacillin tazobactam. Blood cultures taken prior to initiation of antibiotics. CT of his chest abdomen and pelvis is negative for PE, there are moderate to large bilateral pleural effusions with pulmonary vascular congestion. Enlarged mediastinal lymph nodes nonspecific. No gross consolidation noted. Urinary bladder is thickened showing possible cystitis. No hydronephrosis. Blood pressures initially normal upon admission, thereafter trending down to systolic 80s and 90s. Moved to ICU and started on Levophed. (2) Acute cystitis: Started on empiric antibiotic coverage with piperacillin/tazobactam as above. (3) Altered mental status: Altered mental status appears to be related to metabolic encephalopathy from sepsis. CT of his head is without any acute intracranial events. We will start Precedex infusion for patient agitation while avoiding respiratory depression. (4) NSTEMI (non-ST elevated myocardial infarction): Baseline troponin of 100. Recently has been having aches creasing exertional dyspnea. CT of the chest shows bilateral pleural effusions and pulmonary vascular congestion. Will check BNP. Lasix 40 mg IV x1. Avoid further fluids Start Lovenox 1 mg/kg subcutaneously every 12 hours Aspirin 81 mg p.o. daily Echocardiogram Will likely need further ischemic work-up once sepsis resolves. (5) CHF (congestive heart failure): Unknown if this is systolic or diastolic or acute or chronic. Clinical diagnosis at this time Check echocardiogram Lasix 40 mg IV x1, thereafter to be titrated based on kidney function and urine output. Plan Hyperglycemia: Initial blood sugar more than 350, given 10 units of regular insulin after which sugar is down to 266. We will check CMP. If evidence of elevated anion gap, will likely need to start insulin infusion. For now high- dose insulin scale every 4 hours. Abdominal pain, reports loose tarry bowel movements at home yesterday. Appears patient had been complaining of abdominal pain at least for the last 2 to 3 months with planned upper GI endoscopy which has not yet been completed. We will check FOBT as starting him on anticoagulation. Monitor closely for bleeding. Hemoglobin is stable at 11.9 currently. Attestations Medical Necessity Statement*: Anticipate greater than 2 midnight admission for above defined care Coding Level of Care Code Critical Care >/= 30 minutes Diagnoses Sepsis A41.9 Acute cystitis N30.00 Altered mental status R41.82 NSTEMI (non-ST elevated myocardial infarction) I21.4 CHF (congestive heart failure) I50.9
[2022-07-14 07:25] LABS: Glucose Point of Care 91 mg/dL (70-110)
[2022-07-14] MEDS: dexmedetomidine 400 MCG in sodium chloride 0.9% (100 ml) 100 ML IV (07:27)
[2022-07-14] MEDS: FUROsemide 10 mg/mL SDV 4mL 40 MG IVP (07:38)
[2022-07-14 07:43] LABS: Alanine Aminotransferase 31 U/L (0-41); Albumin Level 2.9 g/dL (3.5-5.2); Alkaline Phosphatase 146 U/L (40-130); Aspartate Amino Transferase 66 U/L (0-40); Blood Urea Nitrogen 26 mg/dL (8-23); Carbon Dioxide 20 mmol/L (22-29); Chloride 102 mmol/L (98-107); Creatinine Clr Calc Pharmacy 64.1194; Globulin 3.3 g/dL (1.3-4.6); Glomerular Filtration Rate 59.9 mL/min (90-130); Glucose 275 mg/dL (65-115); Osmolality Calculated 299 mOsm/kg (285-295); Sodium 137 mmol/L (136-145); Total Bilirubin 0.9 mg/dL (0.15-1.2); Total Protein 6.2 g/dL (6.6-8.7)
[2022-07-14 07:49] LABS: Anion Gap 18.5 (5-19); Potassium 3.5 mmol/L (3.5-5.1)
--- NOTE | 2022-07-14 07:59 | ECG_ITS ---
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 Measurements Intervals [place] Rate: 94 P: 18 UT: 163 QRS: -55 QRSD: 116 T: 58 QT: 396 QTc: 497 Interpretive Statements SINUS RHYTHM WITH FREQUENT SUPRAVENTRICULAR PREMATURE COMPLEXES INCOMPLETE RIGHT BUNDLE BRANCH BLOCK [90+ ms QRS DURATION, TERMINAL R IN V1/V2, 40+ ms S IN I/aVL/V4/V5/V6] LEFT ANTERIOR FASCICULAR BLOCK [QRS AXIS <= -45, QR IN I, RS IN II] NONSPECIFIC ST & T-WAVE ABNORMALITY Compared to ECG 07/14/2022 02:09:51 T-wave abnormality now present Prolonged QT interval no longer present Electronically Signed On 07-14-2022 15:18:14 MICROMATIC HONE OPERATOR by Obi Rutledge M.D. [id number]
[2022-07-14 08:29] LABS: Troponin 5 6HR 123.9 ng/L (0-15); Troponin 5 6HR Delta 13.9 ng/L (0-12)
[2022-07-14] MEDS: piperacillin-tazobactam 3.375 GM in sodium chloride 0.9% (plus) 50 ML IV ×3 (08:57→23:17)
[2022-07-14 09:03] LABS: Basophils # 0.1 10^3/uL (0.0-0.1); Basophils % 0.5 %; Eosinophils # 0.1 10^3/uL (0.0-0.8); Hematocrit 34.9 % (42.0-52.0); Hemoglobin 10.8 g/dL (11.7-16.6); Lymphocytes # 0.3 10^3/uL (0.8-4.8); Mean Corpuscular HGB Conc 30.9 g/dL (30.0-36.0); Mean Corpuscular Hemoglobin 29.7 pg (28.0-34.0); Mean Corpuscular Volume 95.9 fl (80-94); Mean Platelet Volume 11.7 fL (7.4-10.4); Monocytes # 0.4 10^3/uL (0.2-0.9); Monocytes % 4.1 %; Neutrophils # 8.46 10^3/uL (1.8-7.7); Neutrophils % 89.9 %; Nucleated Red Blood Cells % 0 %; Platelet Count 88 10^3/cmm (130-400); Red Blood Count 3.64 10^6/uL (4.1-5.3); Red Cell Distribution Width 16.1 % (12.1-15.1); White Blood Count 9.4 10^3/uL (4.0-10.0)
[2022-07-14 09:27] LABS: D Dimer 5.67 ug/mIFEU (0-0.59)
[2022-07-14] MEDS: sodium chloride 0.9% 1,000 ML 999 ML IV (09:27)
[2022-07-14 09:38] LABS: Procalcitonin 42.53 ng/mL (0-0.5); Thyroid Stimulating Hormone 1.22 uIU/mL (0.27-4.20)
[2022-07-14 09:49] LABS: Iron 11 ug/dL (59-158); Percent Saturation 7.9 % (20-50); Total Iron Binding Capacity 138 mcg/dl; Unsaturated Iron Binding 127 ug/dL (112-347)
[2022-07-14 10:08] LABS: Slide Review Slide Review Perform
[2022-07-14] MEDS: sodium chloride 0.9% 1,000 ML 75 ML IV (10:35)
[2022-07-14 11:22] LABS: Vitamin B12 > 2000 pg/mL (232-1245)
[2022-07-14 11:31] LABS: Amphetamines Screen Urine Negative (Negative); Barbiturates Screen Urine Negative (Negative); Benzodiazepines Screen Urine Negative (Negative); Cocaine Screen Urine Negative (Negative); Opiate Screen Urine Negative (Negative); PCP Screen Urine Negative (Negative); THC Screen Urine Negative (Negative)
[2022-07-14 11:41] LABS: Lipase 8 U/L (13-60)
[2022-07-14 11:42] LABS: Glucose Point of Care 135 mg/dL (70-110)
[2022-07-14 11:57] LABS: ABG PCO2 49.2 mmHg (35-45); ABG PH Result 7.27 (7.35-7.45); Alveolar-Arterial Oxygen Gradi 12.1 mmHg (5-10); Arterial Blood Gas Hematocrit 36.5 % (42-52); Base Excess ABG -4.6 mmol/L (-2.0-2.0); Blood Gas Allen Test Pos; Blood Gas Operator Identificat MONRO; Blood Gas Sample Site Radial, right; Blood Gas Sample Type Arterial; Carboxyhemoglobin 1.6 %THgb (0.4-20.1); HCO3 ABG 22.5 mmol/L (22-26); HGB O2 Sat 92.8 % (95-100); Ionized Calcium Level - ABG 1.1 mmol/L (1.1-1.4); Methemoglobin 0.5 % (0.4-1.5); Oxygen Device NC; Oxygen Saturation ABG 94.8; PO2 ABG 76.5 mmHg (80.0-100.0); Potassium Level - ABG 3.8 mmol/L (3.5-5.0); Total Hemoglobin 11.9 g/dL (14-18)
[2022-07-14] MEDS: vancomycin 1,500 MG/300 ML PIGGYBACK 200 MG IV (13:46)
[2022-07-14 15:11] LABS: Anion Gap 16.2 (5-19); Blood Urea Nitrogen 32 mg/dL (8-23); Calcium 7.6 mg/dL (8.5-10.5); Carbon Dioxide 22 mmol/L (22-29); Chloride 105 mmol/L (98-107); Glomerular Filtration Rate 54.6 mL/min (90-130); Glucose 155 mg/dL (65-115); Osmolality Calculated 298 mOsm/kg (285-295); Potassium 4.2 mmol/L (3.5-5.1); Sodium 139 mmol/L (136-145)
[2022-07-14 15:29] LABS: Glucose Point of Care 161 mg/dL (70-110)
--- NOTE | 2022-07-14 15:48 | P.PN_ITS ---
Subjective Subjective: Seen multiple times in the day. H&P and labs appreciated. Today morning on examination seen with at bedside. He was on Levophed of 2 and Precedex at 0.1. In the morning patient was seen to be having hypotensive with mean arterial pressure of less than 60 on Levophed of 2. Overnight urine output of around 5 cc. Patient was given 1 L of fluid bolus to finish the sepsis bolus. Cheetah exam was done which was negative for patient being fluid responsive. During the day fluid was stopped. Documented urine output of around 200 cc. Levophed was kept at 4 with mean arterial pressure improving to 75. Patient's mentation had slightly improved with him being less agitated. Patient's care discussed in detail with at bedside. As per the patient has been complaining of epigastric pain for last 2 to 3 weeks for which he has been to multiple physicians including the ER and investigations have not suggested of any complaints. He saw his primary care provider few days ago who had suggested a possible EGD if symptoms do not improve with medication. Patient has been complaining of abdominal pain along with nausea and vomiting and has been becoming more incoherent over the last 2 days. Patient did not seem to be at his baseline yesterday hence EMS was called who found him to be hypotensive, febrile up to 103 and hypoxic Vitals/I&O/Wt Last Vital Signs Temp 100.6 F H 07/14/22 12:15 Pulse 87 07/14/22 14:51 Resp 35 H 07/14/22 12:15 BP 120/86 07/14/22 12:15 Pulse Ox 96 07/14/22 12:00 O2 Del Method 07/14/22 12:00 O2 Flow Rate 3 07/14/22 12:00 07/14/22 07/14/22 07/14/22 06:59 14:59 22:59 Intake Total 2622.894 / 2622.894 1176.366 / 1176.366 300 / 1476.366 Output Total 350 / 350 Balance 2622.894 / 2622.894 826.366 / 826.366 300 / 1126.366 Weight last 48 hrs Weight 95.254 kg Physical Exam Narrative: General: Seems to be in distress, AO x1, confused, incoherent, in arm restraints for personal safety HEENT: PERRLA, pupils bilaterally equal and reactive Chest: Bilateral bronchial breath sounds all over lung cristina with decreased air entry at bilateral bases and occasional fine crackles CVS: S1-S2 regular, no murmurs, no tachycardia, no gallops, no rubs Abdomen: Soft, seems to be mildly tender to cannot be sure, no guarding, no organomegaly, bowel sounds present, morbidly obese Neuro: No focal deficits, no facial deformity, moving all limbs Urinary Catheter Management: Bledsoe: Cath Placed During This Visit: yes Reason for Continuing Indwelling Catheter: Accurate Measurement of Urinary Output in Critically Ill Patients Urinary Catheter Date of Insertion: 07/13/22 Urinary Catheter Time of Insertion: 23:45 Data 07/14/22 07:55 07/14/22 14:48 Micro: Microbiology 07/13/22 23:20 Blood Culture - Preliminary Blood 07/13/22 23:32 Blood Culture - Preliminary Blood SPECIMEN COLLECTED A&P Assessment and plan (1) Sepsis: Present on admission. As evidenced by fever 103 Fahrenheit upon admission, elevated lactate, tachycardia, signs of endorgan dysfunction by way of altered mentation and NSTEMI. Source most likely UTI versus pneumonia. Patient does have possibility of cellulitis at left foot from dog bite. Patient not fluid responsive as per Cheetah. Follow-up blood culture, urine culture. Check MRSA swab. Check procalcitonin. For now continue with empiric Zosyn and vancomycin. If MRSA is negative will discontinue vancomycin. Appreciate CT with contrast chest abdomen pelvis. CT concerning for bilateral pleural effusion, enlarged mediastinal lymph node, cystitis. Check CT foot to rule out osteomyelitis. (2) Septic shock: Keep mean artery pressure 65. Wean Levophed accordingly. (3) Gram-positive bacteremia: Antibiotics as above. Repeat blood culture in a.m. Most likely patient will need antibiotics for overall 14 days after resolution of bacteremia. (4) NSTEMI (non-ST elevated myocardial infarction): Troponin cycle appreciated. Echocardiogram pending. Continue with Lovenox 1 mg/kg body weight every 12 hourly as per creatinine clearance of 72. Aspirin and statin when able. Once patient is more stable can plan for further ischemic work-up with a cardiac stress test. (5) Altered mental status: Altered mental status appears to be related to metabolic encephalopathy from sepsis. CT of his head is without any acute intracranial events. Frequent reorientation. Sitter at bedside. Precedex will be weaned accordingly. Haldol as needed. (6) Acute cystitis: Follow-up urine cultures. (7) CHF (congestive heart failure): Currently unknown. Dilated cardiomyopathy as per CT chest. Awaiting cardiac echocardiogram. Monitor fluid status. Hold off any further fluids. Can plan for Lasix as per fluid during the day. (8) Hodgkin lymphoma of intrathoracic lymph nodes: (9) Type 2 diabetes mellitus without complications: (10) Goals of care, counseling/discussion: Plan Type 2 diabetes mellitus: Check A1c. Insulin sliding scale at moderate dose protocol every 6 hourly. Was hyperglycemic with anion gap acidosis on admission which seems to have resolved now. Continue to monitor. History of myelodysplastic syndrome/Hodgkin's lymphoma. GERD: Possibility of GI bleed as per as an outpatient. Check iron panel. Protonix twice daily. Sedation: Precedex for now. Analgesia: Tylenol as needed. Patient takes scheduled oxycodone at home. For now start on Dilaudid 0.5 every 4 as needed Glycemic control: Insulin sliding scale moderate dose protocol every 6 Nutrition: N.p.o. CODE STATUS: Discussed in detail with patient's spouse/DPOA at bedside. As per the spouse she and the patient had discussed this before and he would have not w anted any kind of chest compressions or mechanical ventilation but is okay with ICU treatment with pressors. CODE STATUS changed to limited status only for ICU admission and pressors. PUD prophylaxis: Protonix 40 mg twice daily DVT prophylaxis: Full dose Lovenox will suffice for DVT prophylaxis. Discharge planning: Home with home health versus SNF as per clinical picture going forward. Continue with care at ICU great. Patient critically sick. This documentation was created by [employer] sales vice president software. Every effort was made to ensure accuracy of sales vice president. Any obvious errors or omissions should be clarified with the author of the document. Attestations Medical Necessity Statement*: Requires further hospitalization for management of septic shock, gram-positive bacteremia, altered mental status, non-ST elevation ME Coding Level of Care Code Critical Care >/= 30 minutes Critical care time (in minutes): 70 The high probability of a clinically significant, sudden or life threatening deterioration, as referenced in this documentation, required my full and direct attention, intervention and personal management. The critical care time shown is in addition to time spent performing any reported separately billable procedures and includes the following: [x] Data and vital sign review and interpretation [x ] Patient assessment, examination and intervention [x] Medication orders and management [x] Patient/Family updates as able [x] Care Coordination and Documentation. Other Coding Information Prolonged care (total time indicated above or notated here) Seen multiple times in the day. This goals of care discussion with family. Managing Levophed and Precedex drip along with strict input output monitoring. Diagnoses Sepsis A41.9 Septic shock A41.9; R65.21 Gram-positive bacteremia R78.81 NSTEMI (non-ST elevated myocardial infarction) I21.4 Altered mental status R41.82 Acute cystitis N30.00 CHF (congestive heart failure) I50.9 Hodgkin lymphoma of intrathoracic lymph nodes C81.92 Type 2 diabetes mellitus without complications E11.9 Goals of care, counseling/discussion Z71.89
[2022-07-14] MEDS: FUROsemide 10 mg/mL SDV 10mL 60 MG IVP (17:02)
--- NOTE | 2022-07-14 19:06 | CTR_ITS ---
PROCEDURE INFORMATION: Exam: CT Left Lower Extremity Without Contrast, Foot Exam date and time: 07/14/2022 8:17 PM Age: 72 years old Clinical indication: Other: Wound; Additional info: Follow up wound, left foot. TECHNIQUE: Imaging protocol: CT of the left lower extremity without contrast was performed. Exam focused on the foot. Radiation optimization: All CT scans at this facility use at least one of these dose optimization techniques: automated exposure control; mA and/or kV adjustment per patient size (includes targeted exams where dose is matched to clinical indication); or iterative reconstruction. REPORTING DATA: Count of CT and Cardiac NM exams in prior 12 months: This patient has received 4 known CTs and 0 known cardiac nuclear medicine studies in the 12 months prior to the current study. COMPARISON: No relevant prior studies available. RADIATION DOSE METRICS: Total DLP (mGy-cm): 344.24 FINDINGS: Bones/joints: Calcified heel spur. Soft tissues: Subcutaneous edema about the foot without focal fluid collection or acute bony abnormality. Distal Achilles tendon degenerative calcification. CT/CT foot LT wo con* [id number] IMPRESSION: 1. Subcutaneous edema about the foot without focal fluid collection or acute bony abnormality. 2. Calcified heel spur. 3. Distal Achilles tendon degenerative calcification.
--- NOTE | 2022-07-14 19:15 | PC.PHAR ---
Assessment: IBW (kg): 68.40 Dosing wt(kg): 95.254 Estimated Creatinine clearance (ml/min): 55.4 CRCL method: Cockcroft and Gault using ibw(default). Drug selected: Vancomycin Loading dose (mg): 0 Vd (liters): 76.2 (factor used: 0.8 L/kg) Jesse (hr-1): 0.050 Half life (hrs): 13.86 Recommended dose: 1500 mg Interval: 18 hrs Infusion time (hrs): 1.5 Predicted peak (mcg/mL): 32.0 Predicted trough (mcg/mL): 14.02 Total body weight is being used for vancomycin dosing. Renal function is stable [ ] /unstable [ ] Recommendations: Give Vancomycin 1500 mg q 18 hrs with an expected Cpeak of 32.0 mcg/ml and an expected Ctrough of 14.02 mcg/ml
[2022-07-14] MEDS: HYDROmorphone 1 mg/mL INJ 1 mL 0.5 MG IVP (19:53)
[2022-07-14] MEDS: dexmedetomidine 400 MCG in sodium chloride 0.9% (100 ml) 100 ML 12.38 MCG IV (20:50)
[2022-07-14 22:49] LABS: Glucose Point of Care 141 mg/dL (70-110)
[2022-07-15] VITALS (43 sets, daily range): BP systolic 85–160; BP diastolic 47–97; PULSE 58–101; RESP 12–38; TEMP 37.7–38.7; O2SAT 95–100
[2022-07-15] MEDS: HYDROmorphone 1 mg/mL INJ 1 mL 0.5 MG IVP ×4 (03:12→21:07)
[2022-07-15] MEDS: acetaminophen 1,000 MG/100 ML PIGGYBACK 400 MG IV ×2 (03:47→21:17)
[2022-07-15] MEDS: dexmedetomidine 400 MCG in sodium chloride 0.9% (100 ml) 100 ML 12.38 MCG IV ×2 (03:51→12:35)
[2022-07-15 04:49] LABS: Basophils % 0.3 %; Eosinophils % 0.1 %; Hematocrit 36.4 % (42.0-52.0); Hemoglobin 11.4 g/dL (11.7-16.6); Lymphocytes # 0.5 10^3/uL (0.8-4.8); Lymphocytes % 6.4 %; Mean Corpuscular HGB Conc 31.3 g/dL (30.0-36.0); Mean Corpuscular Hemoglobin 30.2 pg (28.0-34.0); Mean Corpuscular Volume 96.3 fl (80-94); Mean Platelet Volume 11.6 fL (7.4-10.4); Monocytes # 0.4 10^3/uL (0.2-0.9); Monocytes % 4.5 %; Neutrophils # 6.88 10^3/uL (1.8-7.7); Neutrophils % 88.2 %; Nucleated Red Blood Cells % 0 %; Platelet Count 81 10^3/cmm (130-400); Red Blood Count 3.78 10^6/uL (4.1-5.3); Red Cell Distribution Width 16.9 % (12.1-15.1); White Blood Count 7.8 10^3/uL (4.0-10.0)
[2022-07-15 05:09] LABS: Estmated Average Glucose 128; Hemoglobin A1C 6.1 % (4.0-6.0)
[2022-07-15 05:23] LABS: Procalcitonin 62.54 ng/mL (0-0.5); Thyroid Stimulating Hormone 1.19 uIU/mL (0.27-4.20)
[2022-07-15 05:39] LABS: Alanine Aminotransferase 32 U/L (0-41); Albumin Level 2.5 g/dL (3.5-5.2); Alkaline Phosphatase 106 U/L (40-130); Anion Gap 20.9 (5-19); Aspartate Amino Transferase 52 U/L (0-40); Blood Urea Nitrogen 37 mg/dL (8-23); Calcium 8.1 mg/dL (8.5-10.5); Carbon Dioxide 20 mmol/L (22-29); Chloride 107 mmol/L (98-107); Cholesterol 72 mg/dL (0-200); Globulin 3.2 g/dL (1.3-4.6); Glomerular Filtration Rate 46.3 mL/min (90-130); Glucose 167 mg/dL (65-115); HDL Cholesterol 15 mg/dL (60-100); LDL Cholesterol Calculated 22 mg/dL (50-129); LDL HDL Ratio 1.47 RATIO (0.00-3.22); Magnesium 2.3 mg/dL (1.7-2.3); Osmolality Calculated 310 mOsm/kg (285-295); Potassium 3.9 mmol/L (3.5-5.1); Sodium 144 mmol/L (136-145); Total Bilirubin 0.6 mg/dL (0.15-1.2); Total Protein 5.7 g/dL (6.6-8.7); Triglycerides 177 mg/dL (0-150); VLDL Cholestrol Calculation 35 mg/dL (0-30)
[2022-07-15] MEDS: HYDROmorphone 1 mg/mL INJ 1 mL IVP ×2 (05:45→07:35)
[2022-07-15 05:46] LABS: Slide Review Slide Review Perform
[2022-07-15] MEDS: enoxaparin 100 mg/mL Syringe 90 MG SUBCUT ×2 (05:51→15:58)
[2022-07-15] MEDS: insulin lispro 100 unit/1 mL SUBCUT ×3 (05:52→21:17)
[2022-07-15] MEDS: piperacillin-tazobactam 3.375 GM in sodium chloride 0.9% (plus) 50 ML IV ×3 (08:11→23:19)
[2022-07-15] MEDS: pantoprazole 40 mg SDV IVP ×2 (08:12→16:31)
[2022-07-15] MEDS: vancomycin 1,500 MG/300 ML PIGGYBACK 200 MG IV (08:13)
[2022-07-15 10:13] LABS: Glucose Point of Care 136 mg/dL (70-110)
[2022-07-15] MEDS: albumin 25 G/100 ML BAG 60 G IV ×2 (10:16→16:32)
[2022-07-15 11:17] LABS: ABG PCO2 42.1 mmHg (35-45); ABG PH Result 7.31 (7.35-7.45); Alveolar-Arterial Oxygen Gradi 2.2 mmHg (5-10); Arterial Blood Gas Hematocrit 35.3 % (42-52); Base Excess ABG -4.6 mmol/L (-2.0-2.0); Blood Gas Allen Test Pos; Blood Gas Operator Identificat CAK; Blood Gas Sample Site Radial, left; Blood Gas Sample Type Arterial; Carboxyhemoglobin 1.4 %THgb (0.4-20.1); HCO3 ABG 21.4 mmol/L (22-26); HGB O2 Sat 94.2 % (95-100); Ionized Calcium Level - ABG 1.2 mmol/L (1.1-1.4); Methemoglobin 0.5 % (0.4-1.5); Oxygen Device NC; PO2 ABG 80.1 mmHg (80.0-100.0); Potassium Level - ABG 3.8 mmol/L (3.5-5.0); Total Hemoglobin 11.5 g/dL (14-18)
[2022-07-15] MEDS: sodium chloride 0.9% 250 ML 999 ML IV (15:42)
[2022-07-15 15:49] LABS: Glucose Point of Care 201 mg/dL (70-110)
[2022-07-15] MEDS: FUROsemide 10 mg/mL SDV 4mL 40 MG IVP (15:58)
--- NOTE | 2022-07-15 16:10 | PM.PN ---
Subjective Subjective: Seen multiple times in her day today. Seen with family at bedside. As per the nursing staff patient was slightly awake today morning and was alert to himself and was complaining of pain. He received 1 dose of Dilaudid. On examination patient is laying in bed, not alert moving his limbs around looks uncomfortable. Last night Levophed was turned off but today morning it had to be restarted again. Currently running at 4 trending down to 2. Tmax in last 24 hours 101.9 Fahrenheit. Documented urine output about 1600 cc in last 24 hours. Cheetah exam repeated today. Patient not fluid responsive. Vitals/I&O/Wt Last Vital Signs Temp 99.3 F 07/14/22 21:15 Pulse 79 07/15/22 14:00 Resp 27 H 07/15/22 13:00 BP 126/81 07/15/22 13:00 Pulse Ox 100 07/15/22 11:32 O2 Del Method 07/15/22 08:00 O2 Flow Rate 3 07/15/22 08:00 07/15/22 07/15/22 07/15/22 06:59 14:59 22:59 Intake Total 468.738 / 2185.297 526.138 / 526.138 Balance 468.738 / 585.297 526.138 / 526.138 Weight last 48 hrs Weight 95.254 kg Physical Exam Narrative: General: Seems to be in distress, AO x1, confused, incoherent, in arm restraints for personal safety HEENT: PERRLA, pupils bilaterally equal and reactive Chest: Bilateral bronchial breath sounds all over lung cristina with decreased air entry at bilateral bases and occasional fine crackles CVS: S1-S2 regular, no murmurs, no tachycardia, no gallops, no rubs Abdomen: Soft, seems to be mildly tender to cannot be sure, no guarding, no organomegaly, bowel sounds present, morbidly obese Neuro: No focal deficits, no facial deformity, moving all limbs Extremities: Bilateral lower limbs cold and clammy, pulses very feeble but palpable, right second toe has an ulcer with dry skin. Urinary Catheter Management: Bledsoe: Cath Placed During This Visit: yes Reason for Continuing Indwelling Catheter: Accurate Measurement of Urinary Output in Critically Ill Patients Urinary Catheter Date of Insertion: 07/13/22 Urinary Catheter Time of Insertion: 23:45 Data 07/15/22 04:30 07/15/22 04:30 Micro: Microbiology 07/14/22 09:56 MRSA Culture - Final Nose 07/13/22 23:32 Blood Culture - Preliminary Blood Gram positive cocci 07/13/22 23:20 Blood Culture - Preliminary Blood Gram positive cocci A&P Assessment and plan (1) Sepsis: Present on admission. As evidenced by fever 103 Fahrenheit upon admission, elevated lactate, tachycardia, signs of endorgan dysfunction by way of altered mentation and NSTEMI. Source most likely UTI versus pneumonia. MRSA positive. Blood cultures positive for gram-positive cocci. For now continue with empiric Zosyn and vancomycin. Appreciate CT with contrast chest abdomen pelvis. CT concerning for bilateral pleural effusion, enlarged mediastinal lymph node, cystitis. CT foot negative for osteomyelitis. (2) Septic shock: Keep mean artery pressure around 70. (3) Gram-positive bacteremia: Antibiotics as above. Repeat blood culture in a.m. Most likely patient will need antibiotics for overall 14 days after resolution of bacteremia. (4) CHENCHO (acute kidney injury): Baseline creatinine normal. Most likely combination of septic shock, contrast study in the ER on admission along with home dose of losartan and naproxen. CT abdomen pelvis negative for obstructive nephropathy. Creatinine 1.5 today. Mild anion gap metabolic acidosis. Check urine lites, urine creatinine, urine eosinophils. Cheetah exam shows patient to be not fluid responsive. Urine output improving. Continue to maintain mean arterial pressures above. Monitor BMP daily for now. We will monitor fluid status and treat with fluid versus Lasix accordingly. (5) NSTEMI (non-ST elevated myocardial infarction): Echocardiogram done shows an EF of 47%, moderately increased LV cavity, mild mitral regurgitation, mild increased LA size, trace TR. Continue with Lovenox 1 mg/kg body weight every 12 hourly as per creatinine clearance. Aspirin and statin when able. Once patient is more stable can plan for further ischemic work-up with a cardiac stress test. (6) CHF (congestive heart failure): Echocardiogram showed an EF of 47% with dilated LV cavity, diastolic dysfunction. Mixed systolic and diastolic heart failure. Monitor fluid status. Stating proper charting. Can plan for Lasix as her fluid status during the day. (7) Altered mental status: Altered mental status appears to be related to metabolic encephalopathy from sepsis. CT of his head is without any acute intracranial events. Frequent reorientation. Sitter at bedside. Precedex will be weaned accordingly. Haldol as needed. (8) Acute cystitis: Follow-up urine cultures. 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 History of myelodysplastic syndrome/Hodgkin's lymphoma. GERD: Possibility of GI bleed as per as an outpatient. Hb stable. . Iron deficient. Start on IV iron supplementation Protonix twice daily. Sedation: Precedex for now. Analgesia: Tylenol as needed. Patient takes scheduled oxycodone at home. For now start on Dilaudid 0.5 every 4 as needed Glycemic control: Insulin sliding scale moderate dose protocol every 6 Nutrition: N.p.o. CODE STATUS: Discussed in detail with patient's spouse/DPOA at bedside. As per the spouse she and the patient had discussed this before and he would have not wanted any kind of chest compressions or mechanical ventilation but is okay with ICU treatment with pressors. CODE STATUS changed to limited status only for ICU admission and pressors. PUD prophylaxis: Protonix 40 mg twice daily DVT prophylaxis: Full dose Lovenox will suffice for DVT prophylaxis. Discharge planning: Home with home health versus SNF as per clinical picture going forward. Continue with care at ICU grade. Patient critically sick. This documentation was created by [employer] slitter and cutter operator software. Every effort was made to ensure accuracy of slitter and cutter operator. Any obvious errors or omissions should be clarified with the author of the document. Attestations Medical Necessity Statement*: Requires further hospitalization for management of septic shock in setting of gram-positive bacteremia, acute kidney injury, non-ST elevation NH with systolic congestive heart failure Coding Level of Care Code Critical Care >/= 30 minutes Critical care time (in minutes): 80 The high probability of a clinically significant, sudden or life threatening deterioration, as referenced in this documentation, required my full and direct attention, intervention and personal management. The critical care time shown is in addition to time spent performing any reported separately billable procedures and includes the following: [x] Data and vital sign review and interpretation [x] Patient assessment, examination and intervention [x] Medication orders and management [x] Patient/Family updates as able [x] Care Coordination and Documentation. Diagnoses Sepsis A41.9 Septic shock A41.9; R65.21 Gram-positive bacteremia R78.81 CHENCHO (acute kidney injury) N17.9 NSTEMI (non-ST elevated myocardial infarction) I21.4 CHF (congestive heart failure) I50.9 Altered mental status R41.82 Acute cystitis N30.00 Hodgkin lymphoma of intrathoracic lymph nodes C81.92 Type 2 diabetes mellitus without complications E11.9 Goals of care, counseling/discussion Z71.89
[2022-07-15 17:36] LABS: Anion Gap 20.5 (5-19); Blood Urea Nitrogen 42 mg/dL (8-23); Calcium 8.4 mg/dL (8.5-10.5); Carbon Dioxide 20 mmol/L (22-29); Chloride 108 mmol/L (98-107); Glomerular Filtration Rate 50.1 mL/min (90-130); Glucose 197 mg/dL (65-115); Osmolality Calculated 316 mOsm/kg (285-295); Potassium 3.5 mmol/L (3.5-5.1); Sodium 145 mmol/L (136-145)
[2022-07-15 20:54] LABS: Glucose Point of Care 150 mg/dL (70-110)
[2022-07-15] MEDS: dexmedetomidine 400 MCG in sodium chloride 0.9% (100 ml) 100 ML 7.43 MCG IV (21:31)
[2022-07-16] VITALS (50 sets, daily range): BP systolic 119–160; BP diastolic 60–101; PULSE 78–102; RESP 8–46; TEMP 37.1–38.1; O2SAT 93–100
[2022-07-16] MEDS: albumin 25 G/100 ML BAG 60 G IV ×3 (01:35→17:20)
[2022-07-16] MEDS: HYDROmorphone 1 mg/mL INJ 1 mL 0.5 MG IVP ×7 (01:36→21:42)
[2022-07-16] MEDS: vancomycin 1,500 MG/300 ML PIGGYBACK 200 MG IV ×2 (01:48→21:09)
[2022-07-16 04:15] LABS: Glucose Point of Care 147 mg/dL (70-110)
[2022-07-16] MEDS: enoxaparin 100 mg/mL Syringe 90 MG SUBCUT ×2 (04:18→15:49)
[2022-07-16] MEDS: insulin lispro 100 unit/1 mL SUBCUT ×4 (04:19→21:43)
[2022-07-16 05:39] LABS: Basophils % 0.2 %; Eosinophils % 0.2 %; Hemoglobin 10.7 g/dL (11.7-16.6); Lymphocytes % 8.6 %; Mean Corpuscular HGB Conc 30.6 g/dL (30.0-36.0); Mean Platelet Volume 12.7 fL (7.4-10.4); Monocytes # 0.5 10^3/uL (0.2-0.9); Monocytes % 4.2 %; Neutrophils % 85.7 %; Nucleated Red Blood Cells % 0 %; Platelet Count 88 10^3/cmm (130-400); Red Blood Count 3.57 10^6/uL (4.1-5.3)
[2022-07-16 05:56] LABS: Alanine Aminotransferase 26 U/L (0-41); Alkaline Phosphatase 109 U/L (40-130); Aspartate Amino Transferase 30 U/L (0-40); Blood Urea Nitrogen 40 mg/dL (8-23); Calcium 8.4 mg/dL (8.5-10.5); Carbon Dioxide 21 mmol/L (22-29); Chloride 111 mmol/L (98-107); Creatinine Clr Calc Pharmacy 64.1194; Globulin 3.3 g/dL (1.3-4.6); Glomerular Filtration Rate 59.9 mL/min (90-130); Glucose 161 mg/dL (65-115); Osmolality Calculated 319 mOsm/kg (285-295); Sodium 148 mmol/L (136-145); Total Bilirubin 0.6 mg/dL (0.15-1.2); Total Protein 6.3 g/dL (6.6-8.7)
[2022-07-16 06:44] LABS: Anion Gap 19.3 (5-19); Potassium 3.3 mmol/L (3.5-5.1)
[2022-07-16 08:35] LABS: Glucose Point of Care 154 mg/dL (70-110)
[2022-07-16] MEDS: piperacillin-tazobactam 3.375 GM in sodium chloride 0.9% (plus) 50 ML IV ×2 (08:45→15:49)
[2022-07-16] MEDS: pantoprazole 40 mg SDV IVP ×2 (08:45→17:20)
[2022-07-16] MEDS: FUROsemide 10 mg/mL SDV 10mL 80 MG IVP (10:23)
[2022-07-16] MEDS: dextrose 5%-sod chloride 0.45% 1,000 ML 75 ML IV (10:25)
--- NOTE | 2022-07-16 14:36 | P.PN_ITS ---
Subjective Subjective: Seen multiple times today. No acute events overnight. Tmax within last 24 hours 101.7 Fahrenheit. Patient has remained hemodynamically stable and and on 2 L of oxygen up to mentation saturating 100%. Today morning on examination. Patient was on 2 of Levophed which was turned off during the day keeping mean artery pressure over 65. Patient was drowsy but waking up to physical stimulus which improved during the day and he was opening eyes to verbal stimulus as well. Precedex during the day was turned off. Vitals/I&O/Wt Last Vital Signs Temp 99.9 F H 07/16/22 04:00 Pulse 93 07/16/22 12:30 Resp 33 H 07/16/22 10:30 BP 133/78 07/16/22 12:30 Pulse Ox 100 07/16/22 12:30 O2 Del Method 07/16/22 08:00 O2 Flow Rate 3 07/16/22 08:00 07/15/22 07/16/22 07/16/22 21:59 06:59 14:59 Intake Total 593.84 / 593.84 Output Total Balance 593.84 / 593.84 Physical Exam Narrative: General: Seems to be in distress, AO x1, confused, incoherent, in arm restraints for personal safety HEENT: PERRLA, pupils bilaterally equal and reactive Chest: Bilateral bronchial breath sounds all over lung cristina with decreased air entry at bilateral bases and occasional fine crackles CVS: S1-S2 regular, no murmurs, no tachycardia, no gallops, no rubs Abdomen: Soft, seems to be mildly tender to cannot be sure, no guarding, no organomegaly, bowel sounds present, morbidly obese Neuro: No focal deficits, no facial deformity, moving all limbs Extremities: Bilateral lower limbs cold and clammy, pulses very feeble but palpable, right second toe has an ulcer with dry skin. Urinary Catheter Management: Bledsoe: Cath Placed During This Visit: yes Reason for Continuing Indwelling Catheter: Accurate Measurement of Urinary Output in Critically Ill Patients Urinary Catheter Date of Insertion: 07/13/22 Urinary Catheter Time of Insertion: 23:45 Data 07/16/22 04:45 07/16/22 04:45 Micro: Microbiology 07/16/22 04:45 Blood Culture - Preliminary Blood SPECIMEN COLLECTED 07/16/22 04:52 Blood Culture - Preliminary Blood SPECIMEN COLLECTED 07/15/22 19:52 Occult Blood (FIT) - Final Stool - Stool Aspirate 07/13/22 23:20 Blood Culture - Preliminary Blood Strep pyogenes (grp a) 07/13/22 23:32 Blood Culture - Preliminary Blood Strep pyogenes (grp a) A&P Assessment and plan (1) Sepsis: Present on admission. As evidenced by fever 103 Fahrenheit upon admission, elevated lactate, tachycardia, signs of endorgan dysfunction by way of altered mentation and NSTEMI. Source most likely UTI versus pneumonia. MRSA positive. Blood cultures positive for group A strep. Repeat blood cultures sent on 07/16. Urine culture not reported yet. For now continue with empiric Zosyn and vancomycin. Appreciate CT with contrast chest abdomen pelvis. CT concerning for bilateral pleural effusion, enlarged mediastinal lymph node, cystitis. CT foot negative for osteomyelitis. (2) Gram-positive bacteremia: Antibiotics as above. Repeat blood culture sent on 07/16. Most likely patient will need antibiotics for overall 14 days after resolution of bacteremia. (3) Altered mental status: Altered mental status appears to be related to metabolic encephalopathy from sepsis, hypernatremia and chronic pain management with patient taking oxycodone 10 mg 5 times a day regularly. CT of his head is without any acute intracranial events. Frequent reorientation. Sitter at bedside. Treatment of hypernatremia as below. As blood pressures are better now we will start patient on Dilaudid 0.5 mg every 8 hourly scheduled with Q6 hourly as needed in between. If patient's mentation improves with this can increase the dose and frequency of Dilaudid. Precedex weaned accordingly. Haldol as needed. (4) CHENCHO (acute kidney injury): Resolved. Replace potassium. Baseline creatinine normal. Most likely combination of septic shock, contrast study in the ER on admission along with home dose of losartan and naproxen. CT abdomen pelvis negative for obstructive nephropathy. Strict input output charting. Continue to maintain mean arterial pressures above. Monitor BMP daily for now. (5) Hypernatremia: Sodium level 148 today. Most likely secondary to poor oral intake. Free water deficit of 2.7 L. It would be best if you could place an NG tube and replace fluid through gut but that will make patient more agitated. For now start patient on D5 half NS at 75 cc/h. Monitor BMP every 12 hourly with repeat at around 3 PM. (6) NSTEMI (non-ST elevated myocardial infarction): Echocardiogram done shows an EF of 47%, moderately increased LV cavity, mild mitral regurgitation, mild increased LA size, trace TR. Continue with Lovenox 1 mg/kg body weight every 12 hourly as per creatinine clearance. Aspirin and statin when able. Once patient is more stable can plan for further ischemic work-up with a cardiac stress test. (7) CHF (congestive heart failure): Echocardiogram showed an EF of 47% with dilated LV cavity, diastolic dysfunction. Mixed systolic and diastolic heart failure. Monitor fluid status. Strict input/output charting. Can plan for Lasix as her fluid status during the day. (8) Acute cystitis: Follow-up urine cultures. (9) Septic shock: Levophed weaned off. Resolved. Continue to monitor blood pressures keeping mean arterial pressure over 65. (10) Dog bite of dorsum of foot: Domestic dog. CT of the foot negative for osteomyelitis. 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 GERD: Possibility of GI bleed as per as an outpatient. Hb stable. . Iron deficient. Start on IV iron supplementation Protonix twice daily. Sedation: Not needed currently. Precedex as needed. Analgesia: Tylenol as needed. Patient takes scheduled oxycodone at home. Dilaudid 0.5 every 8 hourly scheduled, 0.5 every 4 hourly as needed. Glycemic control: Insulin sliding scale moderate dose protocol every 6 Nutrition: N.p.o. we will plan for PT/speech evaluation once patient mentation is better. CODE STATUS: Discussed in detail with patient's spouse/DPOA at bedside. As per the spouse she and the patient had discussed this before and he would have not wanted any kind of chest compressions or mechanical ventilation but is okay with ICU treatment with pressors. CODE STATUS changed to limited status only for ICU admission and pressors. PUD prophylaxis: Protonix 40 mg twice daily DVT prophylaxis: Full dose Lovenox will suffice for DVT prophylaxis. Discharge planning: Home with home health versus SNF as per clinical picture going forward. Continue with care at ICU grade. Patient critically sick. Care discussed in detail with patient's daughter and granddaughter at bedside. Multiple questions were answered. Their concerns were regarding pain medications and starting of fluids given her history of CHF. Discussed that currently patient is dehydrated given hypernatremia and requires IV fluids as hypernatremia can also cause poor mentation. All the questions were answered. This documentation was created by [employer] latex fashions designer software. Every effort was made to ensure accuracy of latex fashions designer. Any obvious errors or omissions should be clarified with the author of the document. Attestations Medical Necessity Statement*: Requires further hospitalization for management of severe sepsis, strep bacteremia, altered mental status in setting of sepsis and hypernatremia, resolving CHENCHO in an elderly who remains critically sick Coding Level of Care Code Critical Care >/= 30 minutes Critical care time (in minutes): 70 The high probability of a clinically significant, sudden or life threatening deterioration, as referenced in this documentation, required my full and direct attention, intervention and personal management. The critical care time shown is in addition to time spent performing any reported separately billable procedures and includes the following: [x] Data and vital sign review and interpretation [x ] Patient assessment, examination and intervention [x] Medication orders and management [x] Patient/Family updates as able [x] Care Coordination and Documentation. Diagnoses Sepsis A41.9 Gram-positive bacteremia R78.81 Altered mental status R41.82 CHENCHO (acute kidney injury) N17.9 Hypernatremia E87.0 NSTEMI (non-ST elevated myocardial infarction) I21.4 CHF (congestive heart failure) I50.9 Acute cystitis N30.00 Septic shock A41.9; R65.21 Dog bite of dorsum of foot S91.359A; W54.0XXA Hodgkin lymphoma of intrathoracic lymph nodes C81.92 Type 2 diabetes mellitus without complications E11.9 Goals of care, counseling/discussion Z71.89
[2022-07-16] MEDS: lidocaine 1% 5 ML in potassium chloride premix 100 ML 26.25 ML IV (15:42)
[2022-07-16 16:01] LABS: Glucose Point of Care 184 mg/dL (70-110)
[2022-07-16 17:34] LABS: Blood Urea Nitrogen 34 mg/dL (8-23); Calcium 8.8 mg/dL (8.5-10.5); Carbon Dioxide 24 mmol/L (22-29); Chloride 110 mmol/L (98-107); Glomerular Filtration Rate 73.9 mL/min (90-130); Glucose 205 mg/dL (65-115); Osmolality Calculated 324 mOsm/kg (285-295); Sodium 150 mmol/L (136-145)
[2022-07-16] MEDS: acetaminophen 1,000 MG/100 ML PIGGYBACK 400 MG IV (19:29)
[2022-07-16 20:42] LABS: Vancomycin Trough 15.5 ug/mL (10-15)
[2022-07-17] VITALS (53 sets, daily range): BP systolic 126–169; BP diastolic 71–99; PULSE 78–99; RESP 12–20; TEMP 37.1–37.4; O2SAT 92–97
[2022-07-17] MEDS: piperacillin-tazobactam 3.375 GM in sodium chloride 0.9% (plus) 50 ML IV ×3 (00:09→15:00)
[2022-07-17] MEDS: dextrose 5%-sod chloride 0.45% 1,000 ML 75 ML IV (00:11)
[2022-07-17 00:40] LABS: Glucose Point of Care 212 mg/dL (70-110)
[2022-07-17] MEDS: HYDROmorphone 1 mg/mL INJ 1 mL 0.5 MG IVP ×5 (01:17→20:08)
[2022-07-17] MEDS: albumin 25 G/100 ML BAG 60 G IV (01:18)
[2022-07-17 01:26] LABS: Glucose Point of Care 144 mg/dL (70-110)
--- NOTE | 2022-07-17 01:40 | PC.NURSE ---
Patient c/o pain throughout shift. Moans, facial grimace. Patient answers yes to pain, but unable to verbalize or point to origin of discomfort. Moans and guards with soft palpation of abdomen. Hypoactive bowel sounds noted. A degree of relief noted with ordered analgesics. Pt follows some simple commands. Moves all exts. + facial symmetry.
[2022-07-17 04:22] LABS: Basophils % 0.3 %; Eosinophils % 0.2 %; Hematocrit 33.5 % (42.0-52.0); Hemoglobin 10.4 g/dL (11.7-16.6); Lymphocytes # 1.3 10^3/uL (0.8-4.8); Lymphocytes % 13.2 %; Mean Corpuscular Hemoglobin 29.7 pg (28.0-34.0); Mean Corpuscular Volume 95.7 fl (80-94); Monocytes # 0.6 10^3/uL (0.2-0.9); Monocytes % 5.9 %; Neutrophils # 7.55 10^3/uL (1.8-7.7); Nucleated Red Blood Cells % 0 %; Platelet Count 80 10^3/cmm (130-400); Red Cell Distribution Width 16.9 % (12.1-15.1); White Blood Count 9.6 10^3/uL (4.0-10.0)
[2022-07-17] MEDS: enoxaparin 100 mg/mL Syringe 90 MG SUBCUT (04:25)
[2022-07-17] MEDS: insulin lispro 100 unit/1 mL SUBCUT ×4 (04:28→23:45)
[2022-07-17 04:35] LABS: Alanine Aminotransferase 21 U/L (0-41); Albumin Level 3.6 g/dL (3.5-5.2); Alkaline Phosphatase 115 U/L (40-130); Anion Gap 20.1 (5-19); Aspartate Amino Transferase 20 U/L (0-40); Blood Urea Nitrogen 35 mg/dL (8-23); Calcium 8.8 mg/dL (8.5-10.5); Carbon Dioxide 24 mmol/L (22-29); Chloride 113 mmol/L (98-107); Globulin 2.8 g/dL (1.3-4.6); Glomerular Filtration Rate 73.9 mL/min (90-130); Glucose 176 mg/dL (65-115); Osmolality Calculated 330 mOsm/kg (285-295); Potassium 3.1 mmol/L (3.5-5.1); Sodium 154 mmol/L (136-145); Total Bilirubin 0.8 mg/dL (0.15-1.2); Total Protein 6.4 g/dL (6.6-8.7)
[2022-07-17 04:39] LABS: Glucose Point of Care 206 mg/dL (70-110)
[2022-07-17 07:34] LABS: Glucose Point of Care 234 mg/dL (70-110)
[2022-07-17] MEDS: pantoprazole 40 mg SDV IVP ×2 (08:12→18:35)
[2022-07-17] MEDS: dextrose 5% 1,000 ML 100 ML IV ×2 (09:14→18:35)
--- NOTE | 2022-07-17 09:54 | PC.SOCIAL ---
IMM update IMM updated with patient's . Verbalized an understanding. Initialled, dated, timed, and placed in chart.
--- NOTE | 2022-07-17 10:28 | PC.CHAP ---
Pastoral Care Encounter/Spiritual Assessment Type of Contact [] Declined marketing support specialist visit [] Patient/Family/Request visit [] Outpatient visit [] Follow-up visit [] Physician referral [] Code/Alert [x] Routine visit [] Staff referral [] Actively dying [] Patient sleeping [x] Family support [] [] Out of room [] Palliative care [] [] Receiving care in room [] Pre-surgical visit [] Trauma [] Long length of stay [xICU visit [x] Other:PT looking better. no communication- Relational/Emotional Strength [] Patient feels connected with others/family/visitors/staff [] Distress [] Loneliness/isolation [] Abandonment Spirituality of Patient [] Person of [place] [] Attends Synagogue of their [place] [] Believes in Prayer [] Reads Bible or Druze materials [] There are Spiritual issues to be addressed Stopping Builder Interventions [x] Prayer [] Active listening [] Non-anxious presence [] Spiritual/emotional support [] Crisis/trauma care [] Spiritual counseling [] Bereavement support [] Provided bereavement packet [] Provided Bible/devotional materials [] Provided toy/stuffed animal, coloring book to patient or family member [] Provided Communion [] Anointing/[place] [] Salvation [x] Completed spiritual assessment [] Other: Impact on Illness or Injury [] Angry [] Fearful [] Anxious [] Often cries [] Exhaustion [] Unable to work [] Unable to attend amish [] Unable to walk/stand [] Unable to read [] Unable to drive [] Unable to eat/drink [] Unable to sleep [] Unable to be with family [] Patient intubated [] Other: Summary Time spent with patient
[2022-07-17] MEDS: lidocaine 1% 5 ML in potassium chloride premix 100 ML 26.25 ML IV (10:46)
--- NOTE | 2022-07-17 10:47 | US_ITS ---
WS: [id number] Complete ABDOMINAL ULTRASOUND HISTORY: right sided abdominal pain. COMPARISON: 05/21/2017. Suboptimal imaging of the RIGHT upper quadrant due to body habitus and bowel gas. Liver: 18.4 cm in length. Mildly enlarged liver. Coarsened echotexture. No mass identified. No bile d uct dilatation. Portal Vein: Normal hepatopetal flow with monophasic waveform. Gallbladder: Prior cholecystectomy. Pancreas: Not visualized. CBD: 0.6 cm. Right kidney: 10.0 cm x 4.9 cm x 6.1 cm. No mass, cortical thickening or hydronephrosis. Left kidney: 11.2 cm x 5.0 cm x 5.2 cm. No mass, cortical thickening or hydronephrosis. Spleen: Normal size and echogenicity. Abdominal aorta and IVC are within normal limits. No ascites. Small RIGHT pleural effusion. US/US abdomen complete* [id number] IMPRESSION: 1. Limited abdominal ultrasound. 2. Prior cholecystectomy. 3. Pancreas not visualized. 4. No bile duct dilatation. 5. Small RIGHT pleural effusion.
[2022-07-17 11:20] LABS: Glucose Point of Care 166 mg/dL (70-110)
--- NOTE | 2022-07-17 13:38 | PM.PN ---
Subjective Subjective: Seen and examined this morning, serum sodium has trended up, currently saturating well on room air Last noted Tmax was on 07/16 midnight:100.5. Medications: Medication Review Details: Generic Name Dose Route Start Last Admin Trade Name Glenda PRN Reason Stop Dose Admin Aspirin 81 mg 07/14/22 09:00 07/15/22 08:30 Aspirin 81 Mg Ec Tablet PO Not Given DAILY SHIRA Gabapentin 100 mg 07/14/22 15:00 07/15/22 14:38 Gabapentin 100 M g Capsule PO Not Given TID SHIRA Hydromorphone HCl 0.5 mg 07/15/22 10:06 07/17/22 11:38 Hydromorphone 1 Mg/Ml Inj 1 Ml IVP 0.5 mg Q4H PRN Administration Pain scale 6-10 Piperacillin Sod/T azobactam 50 mls @ 12.5 mls /hr 07/14/22 04:00 07/17/22 12:12 Sod 3.375 gm/ So dium Chloride IV Infused Q8H SHIRA Infusion Protocol Norepinephrine Bit artrate 4 mg 254 mls @ 0 mls/h r 07/14/22 05:15 07/16/22 10:40 / Dextrose IV Infused .Q0M SHIRA Titration Protocol Per Protocol Dexmedetomidine HC l 400 mcg/ 104 mls @ 0 mls/h r 07/14/22 07:00 07/16/22 12:31 Sodium Chloride IV Infused .Q0M SHIRA Titration Protocol Per Protocol Vancomycin/PEG/NAD A/Lysine/Water 1,500 mg in 300 m ls @ 200 mls/hr 07/14/22 14:00 07/16/22 23:00 Vancocin IV Infused Q18H SHIRA Infusion Acetaminophen 1,000 mg in 100 m ls @ 400 mls/hr 07/14/22 19:00 07/16/22 20:00 Acetaminophen IV Infused Q12H PRN Infusion MILD PAIN Dextrose 1,000 mls @ 100 m ls/hr 07/17/22 08:15 07/17/22 09:14 D5w IV 100 mls/hr .Q10H SHIRA Administration Lidocaine HCl 5 ml / Potassium 105 mls @ 26.25 m ls/hr 07/17/22 10:35 07/17/22 10:46 Chloride IV 07/17/22 14:34 26.25 mls/hr ONCE ONE Administration Insulin Human Lisp ro 0 unit 07/14/22 16:00 07/17/22 09:12 Insulin Lispro 1 00 Unit/1 Ml SUBCUT 8 unit Q6H SHIRA Administration Protocol Pantoprazole Sodiu m 40 mg 07/14/22 18:00 07/17/22 08:12 Pantoprazole 40 Mg Sdv IVP 40 mg BID SHIRA Administration Vitals/I&O/Wt Last Vital Signs Temp 99.3 F 07/17/22 08:00 Pulse 91 07/17/22 13:00 Resp 12 07/17/22 11:38 BP 159/81 07/17/22 13:00 Pulse Ox 93 07/17/22 13:00 O2 Del Method 07/17/22 08:00 O2 Flow Rate 2 07/16/22 21:00 07/16/22 07/17/22 07/17/22 22:59 06:59 14:59 Intake Total 355 / 1052.84 1450 / 2502.84 733.75 / 733.75 Output Total 2550 / 2550 950 / 3500 Balance -2195 / -1497.16 500 / -997.16 733.75 / 733.75 Weight last 48 hrs Weight 90.265 kg Physical Exam Narrative: Patient is currently drowsy, holding minimal conversation, HENMT: COMMON NORMALS: normocephalic and atraumatic HEAD & SCALP: normocephalic and atraumatic Resp: COMMON NORMALS: clear to auscultation bilaterally EFFORT & INSPECTION: Yes symmetric chest movement AUSCULTATION: clear to auscultation bilaterally Cardio: COMMON NORMALS: regular rate, regular rhythm, S1 normal heart sound present, S2 normal heart sound present, No gallops present (Cardio), No murmurs present (Cardio), No rub (Cardio) and Peripheral pulses 2+ throughout RATE: regular rate RHYTHM: regular rhythm HEART SOUNDS: S1 normal heart sound present and S2 normal heart sound present PERIPHERAL PULSES: Peripheral pulses 2+ throughout GI: AUSCULTATION: Yes normoactive bowel sounds RECTAL EXAM: Yes deferred OTHER: Right upper quadrant as well as right lumbar region, redness as well as tenderness present. Extremity: COMMON NORMALS: no clubbing, cyanosis or edema and no pedal edema Urinary Catheter Management: Bledsoe: Cath Placed During This Visit: yes Reason for Continuing Indwelling Catheter: Accurate Measurement of Urinary Output in Critically Ill Patients Urinary Catheter Date of Insertion: 07/13/22 Urinary Catheter Time of Insertion: 23:45 Data 07/17/22 02:49 07/17/22 02:49 Micro: Microbiology 07/13/22 23:59 Urine Culture - Final Urine Kidney 07/13/22 23:56 Urine Culture - Preliminary Urine Catheterized 07/16/22 04:52 Blood Culture - Preliminary Blood NEGATIVE TO DATE 07/16/22 04:45 Blood Culture - Preliminary Blood NEGATIVE TO DATE 07/13/22 23:20 Blood Culture - Final Blood Strep pyogenes (grp a) 07/13/22 23:32 Blood Culture - Final Blood Strep pyogenes (grp a) A&P Assessment and plan (1) Sepsis: Present on admission. As evidenced by fever 103 Fahrenheit upon admission, elevated lactate, tachycardia, signs of endorgan dysfunction by way of altered mentation and NSTEMI. Source most likely UTI versus pneumonia. MRSA positive. Blood cultures positive for group A strep. Repeat blood cultures sent on 07/16. Urine culture not reported yet. For now continue with empiric Zosyn and vancomycin. Appreciate CT with contrast chest abdomen pelvis. CT concerning for bilateral pleural effusion, enlarged mediastinal lymph node, cystitis. CT foot negative for osteomyelitis. (2) Gram-positive bacteremia: Antibiotics as above. Repeat blood culture sent on 07/16. Most likely patient will need antibiotics for overall 14 days after resolution of bacteremia. (3) Altered mental status: Altered mental status appears to be related to metabolic encephalopathy from sepsis, hypernatremia and chronic pain management with patient taking oxycodone 10 mg 5 times a day regularly. CT of his head is without any acute intracranial events. Frequent reorientation. Sitter at bedside. Treatment of hypernatremia as below. As blood pressures are better now we will start patient on Dilaudid 0.5 mg every 8 hourly scheduled with Q6 hourly as needed in between. If patient's mentation improves with this can increase the dose and frequency of Dilaudid. Precedex weaned accordingly. Haldol as needed. (4) CHENCHO (acute kidney injury): Resolved. Replace potassium. Baseline creatinine normal. Most likely combination of septic shock, contrast study in the ER on admission along with home dose of losartan and naproxen. CT abdomen pelvis negative for obstructive nephropathy. Strict input output charting. Continue to maintain mean arterial pressures above. Monitor BMP daily for now. (5) Hypernatremia: Currently serum sodium is 154 Has been started on D5 water at 100 cc an hour Monitor serum sodium Monitor mentation (6) NSTEMI (non-ST elevated myocardial infarction): Possibly type II NSTEMI in the setting of sepsis: Echocardiogram done shows an EF of 47%, moderately increased LV cavity, mild mitral regurgitation, mild increased LA size, trace TR. Patient has been on therapeutic anticoagulation for more than 48 hours.For now we will DC therapeutic anticoagulation. Continue aspirin (7) CHF (congestive heart failure): Echocardiogram showed an EF of 47% with dilated LV cavity, diastolic dysfunction. Mixed systolic and diastolic heart failure. Monitor fluid status. Strict input/output charting. Can plan for Lasix as her fluid status during the day. (8) Acute cystitis: Follow-up urine cultures. (9) Septic shock: Levophed weaned off. Resolved. Continue to monitor blood pressures keeping mean arterial pressure over 65. (10) Dog bite of dorsum of foot: Domestic dog. CT of the foot negative for osteomyelitis. 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 CT head without contrast has not shown any acute intracranial pathology Monitor mentation, hypernatremia correction. Plan History of myelodysplastic syndrome/Hodgkin's lymphoma. GERD: Possibility of GI bleed as per as an outpatient. Hb stable. . Iron deficient. Start on IV iron supplementation Protonix twice daily. Right-sided abdominal pain, as well as tenderness with swelling and redness: S/p fall: CT abdomen and pelvis: Has been reviewed Ultrasound abdomen: Mildly enlarged liver. Coarsened echotexture. ?Prior cholecystectomy. Currently plan is to continue to monitor, if needed will do repeat CT abdomen and pelvis. CODE STATUS: Full code DVT prophylaxis on Lovenox Attestations Medical Necessity Statement*: Patient is to be in hospital for management of sepsis. Critical Care Time: The high probability of a clinically significant, sudden or life threatening deterioration of the patient's [] system(s) required my full and direct attention, intervention and personal management. The critical care time is as shown. This time is in addition to time spent performing any reported procedures but includes the following: [x] Data and vital sign review and interpretation [x] Patient assessment, examination and intervention [x] Documentation [x] Medication orders and management Critical Care Time (min): 40 Coding Level of Care Code Critical Care >/= 30 minutes Diagnoses Sepsis A41.9 Gram-positive bacteremia R78.81 Altered mental status R41.82 CHENCHO (acute kidney injury) N17.9 Hypernatremia E87.0 NSTEMI (non-ST elevated myocardial infarction) I21.4 CHF (congestive heart failure) I50.9 Acute cystitis N30.00 Septic shock A41.9; R65.21 Dog bite of dorsum of foot S91.359A; W54.0XXA Hodgkin lymphoma of intrathoracic lymph nodes C81.92 Type 2 diabetes mellitus without complications E11.9 Goals of care, counseling/discussion Z71.89 Altered mental status R41.82
[2022-07-17] MEDS: vancomycin 1,500 MG/300 ML PIGGYBACK 200 MG IV (14:56)
[2022-07-17 15:26] LABS: Glucose Point of Care 216 mg/dL (70-110)
[2022-07-17 17:27] LABS: Glucose Point of Care 223 mg/dL (70-110)
[2022-07-17 23:42] LABS: Glucose Point of Care 267 mg/dL (70-110)
[2022-07-17] MEDS: insulin glargine 100 units/1 mL 30 UNIT SUBCUT (23:44)
[2022-07-18] VITALS (53 sets, daily range): BP systolic 110–158; BP diastolic 64–99; PULSE 73–93; RESP 12–18; TEMP 37–38; O2SAT 94–100
[2022-07-18] MEDS: piperacillin-tazobactam 3.375 GM in sodium chloride 0.9% (plus) 50 ML IV ×3 (00:59→16:47)
[2022-07-18] MEDS: HYDROmorphone 1 mg/mL INJ 1 mL 0.5 MG IVP ×4 (01:44→19:56)
[2022-07-18] MEDS: dextrose 5% 1,000 ML 100 ML IV ×2 (04:10→13:33)
[2022-07-18 04:28] LABS: Glucose Point of Care 181 mg/dL (70-110)
[2022-07-18] MEDS: insulin lispro 100 unit/1 mL SUBCUT ×3 (04:37→21:42)
[2022-07-18] MEDS: pantoprazole 40 mg SDV IVP ×2 (08:50→17:03)
[2022-07-18] MEDS: enoxaparin 40 mg/0.4 mL Syringe SUBCUT (08:50)
[2022-07-18] MEDS: vancomycin 1,500 MG/300 ML PIGGYBACK 200 MG IV (08:51)
[2022-07-18 09:10] LABS: Basophils % 0.3 %; Eosinophils # 0.1 10^3/uL (0.0-0.8); Eosinophils % 0.9 %; Hematocrit 35.4 % (42.0-52.0); Hemoglobin 11.2 g/dL (11.7-16.6); Lymphocytes # 1.7 10^3/uL (0.8-4.8); Lymphocytes % 23.4 %; Mean Corpuscular HGB Conc 31.6 g/dL (30.0-36.0); Mean Corpuscular Hemoglobin 29.6 pg (28.0-34.0); Mean Corpuscular Volume 93.7 fl (80-94); Mean Platelet Volume 12.5 fL (7.4-10.4); Monocytes # 0.6 10^3/uL (0.2-0.9); Monocytes % 7.5 %; Neutrophils # 4.97 10^3/uL (1.8-7.7); Neutrophils % 66.8 %; Nucleated Red Blood Cells % 0 %; Platelet Count 116 10^3/cmm (130-400); Red Blood Count 3.78 10^6/uL (4.1-5.3); Red Cell Distribution Width 16.8 % (12.1-15.1); White Blood Count 7.4 10^3/uL (4.0-10.0)
[2022-07-18 09:27] LABS: Alanine Aminotransferase 19 U/L (0-41); Albumin Level 3.1 g/dL (3.5-5.2); Alkaline Phosphatase 100 U/L (40-130); Anion Gap 12.2 (5-19); Aspartate Amino Transferase 20 U/L (0-40); Blood Urea Nitrogen 29 mg/dL (8-23); Calcium 8.8 mg/dL (8.5-10.5); Carbon Dioxide 26 mmol/L (22-29); Chloride 115 mmol/L (98-107); Globulin 3.1 g/dL (1.3-4.6); Glomerular Filtration Rate 111.5 mL/min (90-130); Glucose 104 mg/dL (65-115); Osmolality Calculated 316 mOsm/kg (285-295); Potassium 3.2 mmol/L (3.5-5.1); Sodium 150 mmol/L (136-145); Total Bilirubin 0.7 mg/dL (0.15-1.2); Total Protein 6.2 g/dL (6.6-8.7)
[2022-07-18 09:48] LABS: Glucose Point of Care 107 mg/dL (70-110)
[2022-07-18 10:18] LABS: Slide Review Slide Review Perform
[2022-07-18] MEDS: acetaminophen 1,000 MG/100 ML PIGGYBACK 400 MG IV (11:53)
--- NOTE | 2022-07-18 12:39 | PM.PN ---
Subjective Subjective: Patient was seen and examined this morning, serum sodium is trending down, much more alert awake oriented today. Last noted Tmax :100.4. Patient is working well with physical therapy. Medications: Medication Review Details: Generic Name Dose Route Start Last Admin Trade Name Freq PRN Reason Stop Dose Admin Aspirin 81 mg 07/14/22 09:00 07/15/22 08:30 Aspirin 81 Mg Ec Tablet PO Not Given DAILY SHIRA Enoxaparin Sodium 40 mg 07/18/22 09:00 07/18/22 08:50 Enoxaparin 40 Mg /0.4 Ml Syringe SUBCUT 40 mg Q24H SHIRA Administration Gabapentin 100 mg 07/14/22 15:00 07/15/22 14:38 Gabapentin 100 M g Capsule PO Not Given TID SHIRA Hydromorphone HCl 0.5 mg 07/15/22 10:06 07/18/22 10:02 Hydromorphone 1 Mg/Ml Inj 1 Ml IVP 0.5 mg Q4H PRN Administration Pain scale 6-10 Piperacillin Sod/T azobactam 50 mls @ 12.5 mls /hr 07/14/22 04:00 07/18/22 08:51 Sod 3.375 gm/ So dium Chloride IV 12.5 mls/hr Q8H SHIRA Administration Protocol Norepinephrine Bit artrate 4 mg 254 mls @ 0 mls/h r 07/14/22 05:15 07/16/22 10:40 / Dextrose IV Infused .Q0M SHIRA Titration Protocol Per Protocol Dexmedetomidine HC l 400 mcg/ 104 mls @ 0 mls/h r 07/14/22 07:00 07/16/22 12:31 Sodium Chloride IV Infused .Q0M SHIRA Titration Protocol Per Protocol Vancomycin/PEG/NAD A/Lysine/Water 1,500 mg in 300 m ls @ 200 mls/hr 07/14/22 14:00 07/18/22 10:21 Vancocin IV Infused Q18H SHIRA Infusion Acetaminophen 1,000 mg in 100 m ls @ 400 mls/hr 07/14/22 19:00 07/18/22 11:53 Acetaminophen IV 400 mls/hr Q12H PRN Administration MILD PAIN Dextrose 1,000 mls @ 100 m ls/hr 07/17/22 08:15 07/18/22 04:10 D5w IV 100 mls/hr .Q10H SHIRA Administration Insulin Glargine 30 unit 07/17/22 21:00 07/17/22 23:44 Insulin Glargine 100 Units/1 Ml SUBCUT 30 unit BEDTIME SHIRA Administration Insulin Human Lisp ro 0 unit 07/14/22 16:00 07/18/22 09:46 Insulin Lispro 1 00 Unit/1 Ml SUBCUT Not Given Q6H [facility] Protocol Pantoprazole Sodiu m 40 mg 07/14/22 18:00 07/18/22 08:50 Pantoprazole 40 Mg Sdv IVP 40 mg BID SHIRA Administration Vitals/I&O/Wt Last Vital Signs Temp 100.4 F H 07/18/22 08:30 Pulse 85 07/18/22 12:00 Resp 12 07/18/22 10:02 BP 137/73 07/18/22 12:00 Pulse Ox 96 07/18/22 12:00 O2 Del Method 07/18/22 07:57 O2 Flow Rate 2 07/17/22 23:30 07/17/22 07/18/22 07/18/22 22:59 06:59 14:59 Intake Total 1285 / 2123.75 1008.333 / 3132.083 300 / 300 Output Total 1000 / 1000 Balance 1285 / 2123.75 8.333 / 2132.083 300 / 300 Weight last 48 hrs Weight 90.401 kg Weight 90.265 kg Physical Exam Narrative: Alert awake oriented he was able to tell me his name. HENMT: COMMON NORMALS: normocephalic and atraumatic HEAD & SCALP: normocephalic and atraumatic Resp: COMMON NORMALS: clear to auscultation bilaterally EFFORT & INSPECTION: Yes symmetric chest movement AUSCULTATION: clear to auscultation bilaterally Cardio: COMMON NORMALS: regular rate, regular rhythm, S1 normal heart sound present, S2 normal heart sound present, No gallops present (Cardio), No murmurs present (Cardio), No rub (Cardio) and Peripheral pulses 2+ throughout RATE: regular rate RHYTHM: regular rhythm HEART SOUNDS: S1 normal heart sound present and S2 normal heart sound present PERIPHERAL PULSES: Peripheral pulses 2+ throughout GI: AUSCULTATION: Yes normoactive bowel sounds RECTAL EXAM: Yes deferred OTHER: Right upper quadrant as well as right lumbar region, redness as well as tenderness present. Extremity: COMMON NORMALS: no clubbing, cyanosis or edema and no pedal edema Urinary Catheter Management: Bledsoe: Cath Placed During This Visit: yes Reason for Continuing Indwelling Catheter: Accurate Measurement of Urinary Output in Critically Ill Patients Urinary Catheter Date of Insertion: 07/13/22 Urinary Catheter Time of Insertion: 23:45 Data 07/18/22 08:51 07/18/22 08:51 Micro: Microbiology 07/13/22 23:56 Urine Culture - Final Urine Catheterized 07/13/22 23:59 Urine Culture - Final Urine Kidney A&P Assessment and plan (1) Sepsis: Present on admission. As evidenced by fever 103 Fahrenheit upon admission, elevated lactate, tachycardia, signs of endorgan dysfunction by way of altered mentation and NSTEMI. Source most likely UTI versus pneumonia. MRSA positive. Blood cultures positive for group A strep. Repeat blood cultures sent on 07/16. Urine culture not reported yet. For now continue with empiric Zosyn and vancomycin. Appreciate CT with contrast chest abdomen pelvis. CT concerning for bilateral pleural effusion, enlarged mediastinal lymph node, cystitis. CT foot negative for osteomyelitis. (2) Gram-positive bacteremia: Antibiotics as above. Repeat blood culture sent on 07/16. Most likely patient will need antibiotics for overall 14 days after resolution of bacteremia. (3) Altered mental status: Altered mental status appears to be related to metabolic encephalopathy from sepsis, hypernatremia and chronic pain management with patient taking oxycodone 10 mg 5 times a day regularly. CT of his head is without any acute intracranial events. Frequent reorientation. Sitter at bedside. Treatment of hypernatremia as below. As blood pressures are better now we will start patient on Dilaudid 0.5 mg every 8 hourly scheduled with Q6 hourly as needed in between. If patient's mentation improves with this can increase the dose and frequency of Dilaudid. Precedex weaned accordingly. Haldol as needed. (4) CHENCHO (acute kidney injury): Resolved. Replace potassium. Baseline creatinine normal. Most likely combination of septic shock, contrast study in the ER on admission along with home dose of losartan and naproxen. CT abdomen pelvis negative for obstructive nephropathy. Strict input output charting. Continue to maintain mean arterial pressures above. Monitor BMP daily for now. (5) Hypernatremia: Currently serum sodium is 150 Has been started on D5 water at 100 cc an hour Monitor serum sodium Monitor mentation (6) NSTEMI (non-ST elevated myocardial infarction): Possibly type II NSTEMI in the setting of sepsis: Echocardiogram done shows an EF of 47%, moderately increased LV cavity, mild mitral regurgitation, mild increased LA size, trace TR. Patient has been on therapeutic anticoagulation for more than 48 hours.For now we will DC therapeutic anticoagulation. Continue aspirin (7) CHF (congestive heart failure): Echocardiogram showed an EF of 47% with dilated LV cavity, diastolic dysfunction. Mixed systolic and diastolic heart failure. Monitor fluid status. Strict input/output charting. Can plan for Lasix as her fluid status during the day. (8) Acute cystitis: Follow-up urine cultures. (9) Septic shock: Levophed weaned off. Resolved. Continue to monitor blood pressures keeping mean arterial pressure over 65. (10) Dog bite of dorsum of foot: Domestic dog. CT of the foot negative for osteomyelitis. 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 GERD: Possibility of GI bleed as per as an outpatient. Hb stable. . Iron deficient. Start on IV iron supplementation Protonix twice daily. Right-sided abdominal pain, as well as tenderness with swelling and redness: S/p fall: CT abdomen and pelvis: Has been reviewed Ultrasound abdomen: Mildly enlarged liver. Coarsened echotexture. ?Prior cholecystectomy. Currently plan is to continue to monitor, if needed will do repeat CT abdomen and pelvis. CODE STATUS: Full code DVT prophylaxis on Lovenox Attestations Medical Necessity Statement*: Patient is to be in hospital for management of sepsis, hypernatremia, altered mental status, need for IV fluids IV antibiotics Critical Care Time: The high probability of a clinically significant, sudden or life threatening deterioration of the patient's [] system(s) required my full and direct attention, intervention and personal management. The critical care time is as shown. This time is in addition to time spent performing any reported procedures but includes the following: [x] Data and vital sign review and interpretation [x] Patient assessment, examination and intervention [x] Documentation [x] Medication orders and management Critical Care Time (min): 30 Coding Level of Care Code Critical Care >/= 30 minutes Diagnoses Sepsis A41.9 Gram-positive bacteremia R78.81 Altered mental status R41.82 CHENCHO (acute kidney injury) N17.9 Hypernatremia E87.0 NSTEMI (non-ST elevated myocardial infarction) I21.4 CHF (congestive heart failure) I50.9 Acute cystitis N30.00 Septic shock A41.9; R65.21 Dog bite of dorsum of foot S91.359A; W54.0XXA Hodgkin lymphoma of intrathoracic lymph nodes C81.92 Type 2 diabetes mellitus without complications E11.9 Goals of care, counseling/discussion Z71.89
--- NOTE | 2022-07-18 12:42 | US_ITS ---
WS: [id number] RIGHT chest, limited. HISTORY: Evaluate RIGHT pleural effusion. There is a small to moderate mildly complex RIGHT pleural effusion with low-level echoes. US/US chest [id number] IMPRESSION: [id number] RIGHT pleural effusion.
[2022-07-18] MEDS: lidocaine 1% 5 ML in potassium chloride premix 100 ML 26.25 ML IV (13:33)
[2022-07-18 16:47] LABS: Glucose Point of Care 188 mg/dL (70-110)
[2022-07-18 21:37] LABS: Glucose Point of Care 175 mg/dL (70-110)
[2022-07-18] MEDS: insulin glargine 100 units/1 mL 15 UNIT SUBCUT (21:42)
[2022-07-19] VITALS (32 sets, daily range): BP systolic 113–154; BP diastolic 56–100; PULSE 64–87; RESP 14–20; TEMP 36.9–37.1; O2SAT 88–99; BMI 30.4
[2022-07-19] MEDS: piperacillin-tazobactam 3.375 GM in sodium chloride 0.9% (plus) 50 ML IV ×3 (00:20→16:23)
[2022-07-19] MEDS: HYDROmorphone 1 mg/mL INJ 1 mL 0.5 MG IVP ×5 (00:22→20:03)
[2022-07-19] MEDS: dextrose 5% 1,000 ML 100 ML IV ×3 (01:17→21:02)
[2022-07-19 01:42] LABS: Vancomycin Trough 13.2 ug/mL (10-15)
[2022-07-19 01:44] LABS: Alanine Aminotransferase 17 U/L (0-41); Albumin Level 2.7 g/dL (3.5-5.2); Alkaline Phosphatase 92 U/L (40-130); Anion Gap 12.2 (5-19); Aspartate Amino Transferase 17 U/L (0-40); Blood Urea Nitrogen 28 mg/dL (8-23); Calcium 8.2 mg/dL (8.5-10.5); Carbon Dioxide 27 mmol/L (22-29); Chloride 113 mmol/L (98-107); Globulin 3.1 g/dL (1.3-4.6); Glomerular Filtration Rate 111.5 mL/min (90-130); Glucose 166 mg/dL (65-115); Osmolality Calculated 317 mOsm/kg (285-295); Potassium 3.2 mmol/L (3.5-5.1); Sodium 149 mmol/L (136-145); Total Bilirubin 0.7 mg/dL (0.15-1.2); Total Protein 5.8 g/dL (6.6-8.7)
[2022-07-19 02:22] LABS: Hematocrit 34.9 % (42.0-52.0); Hemoglobin 10.9 g/dL (11.7-16.6); Mean Corpuscular HGB Conc 31.2 g/dL (30.0-36.0); Mean Corpuscular Volume 96.1 fl (80-94); Platelet Count 141 10^3/cmm (130-400); Red Blood Count 3.63 10^6/uL (4.1-5.3); Red Cell Distribution Width 16.8 % (12.1-15.1); White Blood Count 7.5 10^3/uL (4.0-10.0)
[2022-07-19 02:57] LABS: Total Cells Counted 100 (0-100)
[2022-07-19 03:01] LABS: Absolute Eosinophils 0.1 10^3/cmm (0.0-0.7); Absolute Segmented Neutrophil 4.4 10/cmm (1.6-7.1); Band Neutrophils Absolute 0.2 10^3/cmm (0.0-1.2); Eosinophils 2 %; Lymphocytes 12 %; Lymphocytes Absolute 2.4 10^3/cmm (1.2-3.4); Monocytes Absolute 0.3 10^3/cmm (0.1-0.6); Segmented Neutrophils 59 %
[2022-07-19 03:02] LABS: Absolute Neutrophil 4.7 10^3/cmm (1.4-6.5); Anisocytosis 2+; Macrocytosis 1+; Platelet Estimate Normal (Normal)
[2022-07-19 03:03] LABS: Polychromasia Trace
[2022-07-19] MEDS: vancomycin 1,500 MG/300 ML PIGGYBACK 200 MG IV (03:20)
[2022-07-19 03:31] LABS: Glucose Point of Care 161 mg/dL (70-110)
[2022-07-19] MEDS: insulin lispro 100 unit/1 mL SUBCUT ×3 (03:34→20:59)
[2022-07-19] MEDS: enoxaparin 40 mg/0.4 mL Syringe SUBCUT (08:03)
[2022-07-19] MEDS: pantoprazole 40 mg SDV IVP (08:09)
[2022-07-19] MEDS: lidocaine 1% 5 ML in potassium chloride premix 100 ML 26.25 ML IV (08:14)
[2022-07-19 09:15] LABS: Glucose Point of Care 151 mg/dL (70-110)
[2022-07-19] MEDS: acetaminophen 1,000 MG/100 ML PIGGYBACK 400 MG IV (15:45)
[2022-07-19 15:56] LABS: Glucose Point of Care 127 mg/dL (70-110)
--- NOTE | 2022-07-19 17:41 | PM.PN ---
Subjective Subjective: Patient was seen and examined this morning, serum sodium is trending down, much more alert awake oriented today. Working with physical therapy.was complaining of rt sided abdominal pain Medications: Medication Review Details: Generic Name Dose Route Start Last Admin Trade Name Freq PRN Reason Stop Dose Admin Aspirin 81 mg 07/14/22 09:00 07/15/22 08:30 Aspirin 81 Mg Ec Tablet PO Not Given DAILY SHIRA Enoxaparin Sodium 40 mg 07/18/22 09:00 07/19/22 08:03 Enoxaparin 40 Mg /0.4 Ml Syringe SUBCUT 40 mg Q24H SHIRA Administration Gabapentin 100 mg 07/14/22 15:00 07/15/22 14:38 Gabapentin 100 M g Capsule PO Not Given TID SHIRA Hydromorphone HCl 0.5 mg 07/15/22 10:06 07/19/22 12:37 Hydromorphone 1 Mg/Ml Inj 1 Ml IVP 0.5 mg Q4H PRN Administration Pain scale 6-10 Piperacillin Sod/T azobactam 50 mls @ 12.5 mls /hr 07/14/22 04:00 07/19/22 16:23 Sod 3.375 gm/ So dium Chloride IV 12.5 mls/hr Q8H SHIRA Administration Protocol Norepinephrine Bit artrate 4 mg 254 mls @ 0 mls/h r 07/14/22 05:15 07/16/22 10:40 / Dextrose IV Infused .Q0M SHIRA Titration Protocol Per Protocol Dexmedetomidine HC l 400 mcg/ 104 mls @ 0 mls/h r 07/14/22 07:00 07/16/22 12:31 Sodium Chloride IV Infused .Q0M SHIRA Titration Protocol Per Protocol Acetaminophen 1,000 mg in 100 m ls @ 400 mls/hr 07/14/22 19:00 07/19/22 16:08 Acetaminophen IV Infused Q12H PRN Infusion MILD PAIN Dextrose 1,000 mls @ 100 m ls/hr 07/17/22 08:15 07/19/22 10:09 D5w IV 100 mls/hr .Q10H SHIRA Administration Insulin Glargine 15 unit 07/18/22 21:00 07/18/22 21:42 Insulin Glargine 100 Units/1 Ml SUBCUT 15 unit BEDTIME SHIRA Administration Insulin Human Lisp ro 0 unit 07/14/22 16:00 07/19/22 16:10 Insulin Lispro 1 00 Unit/1 Ml SUBCUT Not Given Q6H SHIRA Protocol Pantoprazole Sodiu m 40 mg 07/19/22 09:00 07/19/22 08:09 Pantoprazole 40 Mg Sdv IVP 40 mg DAILY SHIRA Administration Vitals/I&O/Wt Last Vital Signs Temp 98.8 F 07/19/22 16:00 Pulse 78 07/19/22 16:00 Resp 14 07/19/22 16:00 BP 154/74 07/19/22 16:00 Pulse Ox 97 07/19/22 16:00 O2 Del Method 07/19/22 16:00 O2 Flow Rate 2 07/17/22 23:30 07/19/22 07/19/22 07/19/22 06:59 14:59 22:59 Intake Total 1350 / 2788.333 1146.667 / 1146.667 100 / 1246.667 Output Total 500 / 1000 Balance 850 / 9231.387 3780.667 / 1146.667 100 / 1246.667 Weight last 48 hrs Weight 93.922 kg Weight 90.718 kg Weight 90.718 kg Weight 90.401 kg Physical Exam Narrative: Alert awake oriented he was able to tell me his name. HENMT: COMMON NORMALS: normocephalic and atraumatic HEAD & SCALP: normocephalic and atraumatic Resp: COMMON NORMALS: clear to auscultation bilaterally EFFORT & INSPECTION: Yes symmetric chest movement AUSCULTATION: clear to auscultation bilaterally Cardio: COMMON NORMALS: regular rate, regular rhythm, S1 normal heart sound present, S2 normal heart sound present, No gallops present (Cardio), No murmurs present (Cardio), No rub (Cardio) and Peripheral pulses 2+ throughout RATE: regular rate RHYTHM: regular rhythm HEART SOUNDS: S1 normal heart sound present and S2 normal heart sound present PERIPHERAL PULSES: Peripheral pulses 2+ throughout GI: AUSCULTATION: Yes normoactive bowel sounds RECTAL EXAM: Yes deferred OTHER: Right upper quadrant as well as right lumbar region, redness as well as tenderness present. Extremity: COMMON NORMALS: no clubbing, cyanosis or edema and no pedal edema Urinary Catheter Management: Bledsoe: Cath Placed During This Visit: yes Reason for Continuing Indwelling Catheter: Accurate Measurement of Urinary Output in Critically Ill Patients Urinary Catheter Date of Insertion: 07/13/22 Urinary Catheter Time of Insertion: 23:45 Data 07/19/22 01:00 07/19/22 01:00 A&P Assessment and plan (1) Sepsis: Present on admission. As evidenced by fever 103 Fahrenheit upon admission, elevated lactate, tachycardia, signs of endorgan dysfunction by way of altered mentation and NSTEMI. Source most likely UTI versus pneumonia. MRSA positive. Blood cultures positive for group A strep. Repeat blood cultures sent on 07/16. Urine culture not reported yet. For now continue with empiric Zosyn and vancomycin. Appreciate CT with contrast chest abdomen pelvis. CT concerning for bilateral pleural effusion, enlarged mediastinal lymph node, cystitis. CT foot negative for osteomyelitis. Ultrasound chest: small to moderate mildly complex RIGHT pleural effusion. (2) Gram-positive bacteremia: Antibiotics as above. Repeat blood culture sent on 07/16. Most likely patient will need antibiotics for overall 14 days after resolution of bacteremia. (3) Altered mental status: Altered mental status appears to be related to metabolic encephalopathy from sepsis, hypernatremia and chronic pain management with patient taking oxycodone 10 mg 5 times a day regularly. CT of his head is without any acute intracranial events. Frequent reorientation. Sitter at bedside. Treatment of hypernatremia as below. As blood pressures are better now we will start patient on Dilaudid 0.5 mg every 8 hourly scheduled with Q6 hourly as needed in between. If patient's mentation improves with this can increase the dose and frequency of Dilaudid. Precedex weaned accordingly. Haldol as needed. (4) CHENCHO (acute kidney injury): Resolved. Replace potassium. Baseline creatinine normal. Most likely combination of septic shock, contrast study in the ER on admission along with home dose of losartan and naproxen. CT abdomen pelvis negative for obstructive nephropathy. Strict input output charting. Continue to maintain mean arterial pressures above. Monitor BMP daily for now. (5) Hypernatremia: Currently serum sodium is 149 Has been started on D5 water at 100 cc an hour Monitor serum sodium Monitor mentation (6) NSTEMI (non-ST elevated myocardial infarction): Possibly type II NSTEMI in the setting of sepsis: Echocardiogram done shows an EF of 47%, moderately increased LV cavity, mild mitral regurgitation, mild increased LA size, trace TR. Patient has been on therapeutic anticoagulation for more than 48 hours.For now we will DC therapeutic anticoagulation. Continue aspirin (7) CHF (congestive heart failure): Echocardiogram showed an EF of 47% with dilated LV cavity, diastolic dysfunction. Mixed systolic and diastolic heart failure. Monitor fluid status. Strict input/output charting. Lasix as needed depending upon the fluid status (8) Acute cystitis: Follow-up urine cultures. (9) Septic shock: Levophed weaned off. Resolved. Continue to monitor blood pressures keeping mean arterial pressure over 65. (10) Dog bite of dorsum of foot: Domestic dog. CT of the foot negative for osteomyelitis. 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 GERD: Possibility of GI bleed as per as an outpatient. Hb stable. . Iron deficient. Start on IV iron supplementation Protonix twice daily. Right-sided abdominal pain, as well as tenderness with swelling and redness: S/p fall: CT abdomen and pelvis: Has been reviewed Ultrasound abdomen: Mildly enlarged liver. Coarsened echotexture. ?Prior cholecystectomy. Currently plan is to continue to monitor, if needed will do repeat CT abdomen and pelvis. CODE STATUS: Full code DVT prophylaxis on Lovenox Attestations Medical Necessity Statement*: Needs to be in hospital for IV antibiotics. Coding Level of Care Code 08257 Diagnoses Sepsis A41.9 Gram-positive bacteremia R78.81 Altered mental status R41.82 CHENCHO (acute kidney injury) N17.9 Hypernatremia E87.0 NSTEMI (non-ST elevated myocardial infarction) I21.4 CHF (congestive heart failure) I50.9 Acute cystitis N30.00 Septic shock A41.9; R65.21 Dog bite of dorsum of foot S91.359A; W54.0XXA Hodgkin lymphoma of intrathoracic lymph nodes C81.92 Type 2 diabetes mellitus without complications E11.9 Goals of care, counseling/discussion Z71.89
[2022-07-19] MEDS: FUROsemide 10 mg/mL SDV 2mL 20 MG IVP (19:42)
[2022-07-19] MEDS: lidocaine 1% 5 ML in potassium chloride premix 100 ML 52.5 ML IV (19:42)
[2022-07-19 20:53] LABS: Glucose Point of Care 163 mg/dL (70-110)
[2022-07-19] MEDS: insulin glargine 100 units/1 mL 15 UNIT SUBCUT (20:59)
[2022-07-20] VITALS (15 sets, daily range): BP systolic 142–170; BP diastolic 65–85; PULSE 60–87; RESP 15–24; TEMP 36.6–36.8; O2SAT 94–98
[2022-07-20] MEDS: piperacillin-tazobactam 3.375 GM in sodium chloride 0.9% (plus) 50 ML IV ×3 (00:20→18:10)
[2022-07-20] MEDS: HYDROmorphone 1 mg/mL INJ 1 mL 0.5 MG IVP ×5 (00:21→20:14)
[2022-07-20 01:46] LABS: Glucose Point of Care 133 mg/dL (70-110)
[2022-07-20 04:52] LABS: Glucose Point of Care 147 mg/dL (70-110)
[2022-07-20] MEDS: insulin lispro 100 unit/1 mL SUBCUT (05:23)
[2022-07-20 05:50] LABS: Hematocrit 35.1 % (42.0-52.0); Hemoglobin 10.8 g/dL (11.7-16.6); Mean Corpuscular HGB Conc 30.8 g/dL (30.0-36.0); Mean Corpuscular Hemoglobin 29.3 pg (28.0-34.0); Mean Corpuscular Volume 95.1 fl (80-94); Mean Platelet Volume 12.4 fL (7.4-10.4); Platelet Count 176 10^3/cmm (130-400); Red Blood Count 3.69 10^6/uL (4.1-5.3); Red Cell Distribution Width 16.4 % (12.1-15.1); White Blood Count 9.3 10^3/uL (4.0-10.0)
[2022-07-20 06:04] LABS: Alanine Aminotransferase 15 U/L (0-41); Albumin Level 2.5 g/dL (3.5-5.2); Alkaline Phosphatase 84 U/L (40-130); Anion Gap 10.4 (5-19); Aspartate Amino Transferase 18 U/L (0-40); Blood Urea Nitrogen 17 mg/dL (8-23); Calcium 7.9 mg/dL (8.5-10.5); Carbon Dioxide 27 mmol/L (22-29); Chloride 106 mmol/L (98-107); Globulin 3.3 g/dL (1.3-4.6); Glomerular Filtration Rate 133.2 mL/min (90-130); Glucose 176 mg/dL (65-115); Osmolality Calculated 296 mOsm/kg (285-295); Potassium 3.4 mmol/L (3.5-5.1); Sodium 140 mmol/L (136-145); Total Protein 5.8 g/dL (6.6-8.7)
[2022-07-20] MEDS: dextrose 5% 1,000 ML 100 ML IV (06:48)
[2022-07-20] MEDS: lidocaine 1% 5 ML in potassium chloride premix 100 ML 52.5 ML IV ×2 (08:50→12:33)
[2022-07-20] MEDS: pantoprazole 40 mg SDV IVP (09:17)
[2022-07-20] MEDS: enoxaparin 40 mg/0.4 mL Syringe SUBCUT (09:17)
[2022-07-20 09:48] LABS: Glucose Point of Care 132 mg/dL (70-110)
--- NOTE | 2022-07-20 11:18 | CTR_ITS ---
PROCEDURE INFORMATION: Exam: CT Abdomen And Pelvis With Contrast Exam date and time: 07/20/2022 12:13 PM Age: 72 years old Clinical indication: Injury or trauma; Fall; Blunt; Upper; Prior surgery; Surgery type: Back; Patient HX: HX of leukemia; Additional info: Post fall right side abdomen pian TECHNIQUE: Imaging protocol: Computed tomography of the abdomen and pelvis with contrast. Radiation optimization: All CT scans at this facility use at least one of these dose optimization techniques: automated exposure control; mA and/or kV adjustment per patient size (includes targeted exams where dose is matched to clinical indication); or iterative reconstruction. Contrast material: OMNI 350; Contrast volume: 100 ml; Contrast route: INTRAVENOUS (IV); REPORTING DATA: Count of CT and Cardiac NM exams in prior 12 months: This patient has received 5 known CTs and 0 known cardiac nuclear medicine studies in the 12 months prior to the current study. COMPARISON: CT angio chest w abd pel w con 07/14/2022 12:39 AM RADIATION DOSE METRICS: Total DLP (mGy-cm): 1079.11 FINDINGS: Lungs: There is near complete atelectasis of the right lower lobe. There is subsegmental atelectasis in the left lower lobe. Pleural spaces: Moderate right and small left pleural effusions are grossly stable since 07/14/2022. Heart: There is mild cardiac enlargement. There is no pericardial effusion. Coronary arteries: There is severe coronary artery calcification. Liver: There is geographic focal hypoattenuation of the liver parenchyma along the distal portion of the fissure for the falciform ligament consistent with focal fat infiltration. The liver is unremarkable otherwise. Gallbladder and bile ducts: The gallbladder is absent. There is ectasia of the common bile duct and central intrahepatic ducts. Pancreas: There is moderate atrophy of the pancreas. Spleen: The spleen is moderately enlarged. Adrenal glands: The adrenal glands are unremarkable. Kidneys and ureters: The kidneys are unremarkable. No hydronephrosis or stones. No ureteral dilation. Stomach and bowel: The stomach is decompressed, preventing meaningful evaluation of wall thickness. The small bowel is nondilated. The colon is diffusely decompressed limiting assessment of wall thickness. Appendix: The appendix is normal. Intraperitoneal space: Trace simple pelvic free fluid is new since 07/14/2022. There is no free air. Vasculature: There is mild aortic atherosclerotic disease. The portal, splenic and superior mesenteric veins are patent. Lymph nodes: There is no lymphadenopathy in the retroperitoneum, mesentery, pelvis or inguinal regions. Urinary bladder: The Bledsoe catheter is appropriately positioned with the bulb and tip within the bladder lumen. The urinary bladder is decompressed, preventing meaningful evaluation of wall thickness. There is pericystic edema and trace intramural gas in the bladder. See axial series 3, image 88. Reproductive: The prostate and seminal vesicles are unremarkable. Bones/joints: There is moderate degenerative disease in the lumbar spine. There are chronic compression fractures at L2 and L3. There is bilateral L2 through L4 osseous facet fusion. Findings are stable since 07/14/2022. The right hip prosthesis is intact and well aligned. The left hip is unremarkable. The bony pelvis is intact. There is severe spinal stenosis at L4-L5. There is an acute nondisplaced fracture of the anterior right 9th rib. See sagittal series 6, image 73 and axial series 3 image 35 through 39. There is trace gas in the adjacent pleural space and musculature, better visualized on this exam than on 07/14/2022. Soft tissues: The abdominal wall is intact. CT/CT abdomen pelvis w con* [id number] IMPRESSION: 1. Acute nondisplaced fracture of the anterior right 9th rib with trace gas in the adjacent pleural space and musculature. 2. No sign of significant intra-abdominal injury. 3. Suggestive findings of cystitis. Correlate with urinalysis. 4. Mild mesenteric edema and trace pelvic free fluid is new since 07/14/2022. Nonspecific finding. This finding may be related to a systemic process. There is no other sign of peritonitis. 5. Bilateral pleural effusions are similar to 07/14/2022 but are incompletely imaged. 6. Moderate splenic enlargement. 7. Incidental findings above.
--- NOTE | 2022-07-20 12:24 | PC.NURSE ---
Clarified with Dr. Mathis about second Potassium ordered. Dr. Mathis stated that if he ordered he means to give it!
[2022-07-20] MEDS: iohexol 350 mg/mL 500 mL Btl (per mL) IV (12:25)
[2022-07-20] MEDS: FUROsemide 10 mg/mL SDV 2mL 20 MG IVP (12:32)
[2022-07-20] MEDS: aspirin 81 mg EC Tablet PO (12:50)
--- NOTE | 2022-07-20 13:25 | P.PN_ITS ---
Subjective Subjective: Patient was seen and examined this morning, serum sodium has normalized, patient is currently much more alert awake responds to questions appropriately, speech evaluation has been done, has significant right upper quadrant tenderness. Medications: Medication Review Details: Generic Name Dose Route Start Last Admin Trade Name Freq PRN Reason Stop Dose Admin Aspirin 81 mg 07/20/22 11:40 07/20/22 12:50 Aspirin 81 Mg Ec Tablet PO 81 mg DAILY SHIRA Administration Enoxaparin Sodium 40 mg 07/18/22 09:00 07/20/22 09:17 Enoxaparin 40 Mg /0.4 Ml Syringe SUBCUT 40 mg Q24H SHIRA Administration Hydromorphone HCl 0.5 mg 07/15/22 10:06 07/20/22 10:33 Hydromorphone 1 Mg/Ml Inj 1 Ml IVP 0.5 mg Q4H PRN Administration Pain scale 6-10 Piperacillin Sod/T azobactam 50 mls @ 12.5 mls /hr 07/14/22 04:00 07/20/22 09:16 Sod 3.375 gm/ So dium Chloride IV 12.5 mls/hr Q8H SHIRA Administration Protocol Norepinephrine Bit artrate 4 mg 254 mls @ 0 mls/h r 07/14/22 05:15 07/16/22 10:40 / Dextrose IV Infused .Q0M SHIRA Titration Protocol Per Protocol Acetaminophen 1,000 mg in 100 m ls @ 400 mls/hr 07/14/22 19:00 07/19/22 16:08 Acetaminophen IV Infused Q12H PRN Infusion MILD PAIN Lidocaine HCl 5 ml / Potassium 105 mls @ 52.5 ml s/hr 07/20/22 12:00 07/20/22 12:33 Chloride IV 07/20/22 13:59 52.5 mls/hr ONCE ONE Administration Insulin Glargine 15 unit 07/18/22 21:00 07/19/22 20:59 Insulin Glargine 100 Units/1 Ml SUBCUT 15 unit BEDTIME SHIRA Administration Insulin Human Lisp ro 0 unit 07/14/22 16:00 07/20/22 09:50 Insulin Lispro 1 00 Unit/1 Ml SUBCUT Not Given Q6H SHIRA Protocol Pantoprazole Sodiu m 40 mg 07/19/22 09:00 07/20/22 09:17 Pantoprazole 40 Mg Sdv IVP 40 mg DAILY SHIRA Administration Vitals/I&O/Wt Last Vital Signs Temp 98.2 F 07/20/22 11:42 Pulse 67 07/20/22 11:42 Resp 16 07/20/22 11:42 BP 170/65 07/20/22 11:42 Pulse Ox 96 07/20/22 11:42 O2 Del Method 07/20/22 11:42 O2 Flow Rate 2 07/19/22 20:00 07/19/22 07/20/22 07/20/22 22:59 06:59 14:59 Intake Total 1390 / 2536.667 1146.667 / 3683.334 Output Total 1650 / 1650 350 / 2000 Balance -260 / 886.667 796.667 / 1683.334 Weight last 48 hrs Weight 93.922 kg Weight 90.718 kg Weight 90.718 kg Physical Exam Narrative: Alert awake oriented he was able to tell me his name. HENMT: COMMON NORMALS: normocephalic and atraumatic HEAD & SCALP: normocephalic and atraumatic Resp: COMMON NORMALS: clear to auscultation bilaterally EFFORT & INSPECTION: Yes symmetric chest movement AUSCULTATION: clear to auscultation bilaterally OTHER: Diminished air entry in rt lung cristina Cardio: COMMON NORMALS: regular rate, regular rhythm, S1 normal heart sound present, S2 normal heart sound present, No gallops present (Cardio), No murmurs present (Cardio), No rub (Cardio) and Peripheral pulses 2+ throughout RATE: regular rate RHYTHM: regular rhythm HEART SOUNDS: S1 normal heart sound present and S2 normal heart sound present PERIPHERAL PULSES: Peripheral pulses 2+ throughout GI: AUSCULTATION: Yes normoactive bowel sounds RECTAL EXAM: Yes deferred OTHER: Right upper quadrant as well as right lumbar region, redness as well as tenderness present. Extremity: COMMON NORMALS: no clubbing, cyanosis or edema and no pedal edema Urinary Catheter Management: Bledsoe: Cath Placed During This Visit: yes Reason for Continuing Indwelling Catheter: Other Urinary Catheter Date of Insertion: 07/13/22 Urinary Catheter Time of Insertion: 23:45 Data 07/20/22 05:38 07/20/22 05:38 A&P Assessment and plan (1) Sepsis: Present on admission. As evidenced by fever 103 Fahrenheit upon admission, elevated lactate, tachycardia, signs of endorgan dysfunction by way of altered mentation and NSTEMI. Source most likely UTI versus pneumonia. MRSA positive. Blood cultures positive for group A strep. Repeat blood cultures sent on 07/16. Urine culture not reported yet. For now continue with empiric Zosyn and vancomycin. Appreciate CT with contrast chest abdomen pelvis. CT concerning for bilateral pleural effusion, enlarged mediastinal lymph node, cystitis. CT foot negative for osteomyelitis. Ultrasound chest: small to moderate mildly complex RIGHT pleural effusion. (2) Gram-positive bacteremia: Antibiotics as above. Repeat blood culture sent on 07/16. Most likely patient will need antibiotics for overall 14 days after resolution of bacteremia. (3) Altered mental status: Altered mental status appears to be related to metabolic encephalopathy from sepsis, hypernatremia and chronic pain management with patient taking oxycodone 10 mg 5 times a day regularly. CT of his head is without any acute intracranial events. Frequent reorientation. Sitter at bedside. Treatment of hypernatremia as below. As blood pressures are better now we will start patient on Dilaudid 0.5 mg every 8 hourly scheduled with Q6 hourly as needed in between. If patient's mentation improves with this can increase the dose and frequency of Dilaudid. Precedex weaned accordingly. Haldol as needed. (4) CHENCHO (acute kidney injury): Resolved. Replace potassium. Baseline creatinine normal. Most likely combination of septic shock, contrast study in the ER on admission along with home dose of losartan and naproxen. CT abdomen pelvis negative for obstructive nephropathy. Strict input output charting. Continue to maintain mean arterial pressures above. Monitor BMP daily for now. (5) Hypernatremia: Currently serum sodium is 149 Has been started on D5 water at 100 cc an hour Monitor serum sodium Monitor mentation (6) NSTEMI (non-ST elevated myocardial infarction): Possibly type II NSTEMI in the setting of sepsis: Echocardiogram done shows an EF of 47%, moderately increased LV cavity, mild mitral regurgitation, mild increased LA size, trace TR. Patient has been on therapeutic anticoagulation for more than 48 hours.For now we will DC therapeutic anticoagulation. Continue aspirin (7) CHF (congestive heart failure): Echocardiogram showed an EF of 47% with dilated LV cavity, diastolic dysfunction. Mixed systolic and diastolic heart failure. Monitor fluid status. Strict input/output charting. Lasix as needed depending upon the fluid status (8) Acute cystitis: Follow-up urine cultures. (9) Septic shock: Levophed weaned off. Resolved. Continue to monitor blood pressures keeping mean arterial pressure over 65. (10) Dog bite of dorsum of foot: Domestic dog. CT of the foot negative for osteomyelitis. 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 Ultrasound chest: Has shown small to moderate mildly complex RIGHT pleural effusion. He is due for rt sided thoracentesis. Follow pleural fluid analysis. Plan History of myelodysplastic syndrome/Hodgkin's lymphoma. GERD: Possibility of GI bleed as per as an outpatient. Hb stable. . Iron deficient. Start on IV iron supplementation Protonix twice daily. Right-sided abdominal pain, as well as tenderness with swelling and redness: S/p fall: Initial CT abdomen and pelvis: Has been reviewed. Ultrasound abdomen: Mildly enlarged liver. Coarsened echotexture. ?Prior cholecystectomy. Currently plan is to continue to monitor, if needed will do repeat CT abdomen and pelvis. Repeat CT abdomen and pelvis with IV contrast: Has shown: ?Acute nondisplaced fracture of the anterior right 9th rib with trace gas in the adjacent pleural space and musculature. No sign of significant intra- abdominal injury. CODE STATUS: Full code DVT prophylaxis on Lovenox Attestations Medical Necessity Statement*: patient needs to be in hospital for the management of sepsis. Coding Level of Care Code 52715 Diagnoses Sepsis A41.9 Gram-positive bacteremia R78.81 Altered mental status R41.82 CHENCHO (acute kidney injury) N17.9 Hypernatremia E87.0 NSTEMI (non-ST elevated myocardial infarction) I21.4 CHF (congestive heart failure) I50.9 Acute cystitis N30.00 Septic shock A41.9; R65.21 Dog bite of dorsum of foot S91.359A; W54.0XXA Hodgkin lymphoma of intrathoracic lymph nodes C81.92 Type 2 diabetes mellitus without complications E11.9 Goals of care, counseling/discussion Z71.89 Rib fracture S22.39XA Pleural effusion J90
--- NOTE | 2022-07-20 14:06 | PC.NURSE ---
Midline placed to left basilic vein without difficulty. Trimmed length 8 cm with no external length noted. Mid-arm circumference measured 10 cm from left AC and noted at 30 cm. Dressing due to be changed tomorrow, 07/21/22. Report given to bedside nurseEdita.
[2022-07-20] MEDS: gabapentin 100 mg Capsule PO ×2 (16:21→21:55)
[2022-07-20 17:13] LABS: Glucose Point of Care 141 mg/dL (70-110)
[2022-07-20 17:13] LABS: Glucose Point of Care 138 mg/dL (70-110)
[2022-07-20] MEDS: insulin glargine 100 units/1 mL 15 UNIT SUBCUT (21:54)
[2022-07-21] VITALS (9 sets, daily range): BP systolic 136–159; BP diastolic 70–86; PULSE 60–71; RESP 17–26; TEMP 36.4–37.5; O2SAT 95–100
[2022-07-21] MEDS: piperacillin-tazobactam 3.375 GM in sodium chloride 0.9% (plus) 50 ML IV ×3 (01:59→18:23)
[2022-07-21 02:08] LABS: Glucose Point of Care 122 mg/dL (70-110)
[2022-07-21 02:24] LABS: Glucose Point of Care 106 mg/dL (70-110)
[2022-07-21] MEDS: HYDROmorphone 1 mg/mL INJ 1 mL 0.5 MG IVP ×4 (04:47→20:28)
[2022-07-21 05:06] LABS: Basophils # 0.1 10^3/uL (0.0-0.1); Basophils % 0.5 %; Eosinophils # 0.2 10^3/uL (0.0-0.8); Eosinophils % 2.2 %; Hematocrit 35.6 % (42.0-52.0); Hemoglobin 10.9 g/dL (11.7-16.6); Lymphocytes # 2.1 10^3/uL (0.8-4.8); Mean Corpuscular HGB Conc 30.6 g/dL (30.0-36.0); Mean Corpuscular Hemoglobin 29.2 pg (28.0-34.0); Mean Corpuscular Volume 95.4 fl (80-94); Mean Platelet Volume 12.2 fL (7.4-10.4); Monocytes # 0.5 10^3/uL (0.2-0.9); Monocytes % 5.2 %; Neutrophils # 6.44 10^3/uL (1.8-7.7); Neutrophils % 69.2 %; Nucleated Red Blood Cells % 0 %; Platelet Count 190 10^3/cmm (130-400); Red Blood Count 3.73 10^6/uL (4.1-5.3); Red Cell Distribution Width 16.3 % (12.1-15.1); White Blood Count 9.3 10^3/uL (4.0-10.0)
[2022-07-21 05:19] LABS: INR 1.45 (0.8-1.2)
[2022-07-21 05:38] LABS: Lactate Dehydrogenase 186 U/L (135-225)
[2022-07-21 05:44] LABS: Alanine Aminotransferase 13 U/L (0-41); Albumin Level 2.7 g/dL (3.5-5.2); Alkaline Phosphatase 92 U/L (40-130); Anion Gap 14.6 (5-19); Aspartate Amino Transferase 17 U/L (0-40); Blood Urea Nitrogen 14 mg/dL (8-23); Calcium 7.9 mg/dL (8.5-10.5); Carbon Dioxide 26 mmol/L (22-29); Chloride 108 mmol/L (98-107); Globulin 3.3 g/dL (1.3-4.6); Glomerular Filtration Rate 111.5 mL/min (90-130); Glucose 100 mg/dL (65-115); Osmolality Calculated 301 mOsm/kg (285-295); Potassium 3.6 mmol/L (3.5-5.1); Sodium 145 mmol/L (136-145); Total Bilirubin 1.1 mg/dL (0.15-1.2)
[2022-07-21 05:45] LABS: Glucose Point of Care 97 mg/dL (70-110)
--- NOTE | 2022-07-21 08:00 | US_ITS ---
WS: [id number] ULTRASOUND-GUIDED THORACENTESIS CLINICAL INFORMATION: rt sided pleural effusion COMPARISON: None. PROCEDURE: Informed consent: The risks, benefits, and alternatives of the procedure were discussed with the will ent. Verbal and written consent was obtained. Timeout: A timeout was performed to confirm the correct patient, procedure, and site. Site: RIGHT chest Preparation: A suitable skin site was identified. The patient was prepped and draped in usual sterile fashion. Lidocaine 1% was used for local anesthesia. Catheter: 4 Norwegian One-Step catheter. Fluid Volume: 1200 ml Color: Yellow and MLO 50 cc sent to the laboratory for further analysis. Complications: None. / thoracentesis [id number] IMPRESSION: 1. Uncomplicated ultrasound-guided RIGHT thoracentesis. 2. Removal 1200 cc
[2022-07-21 09:31] LABS: Glucose Point of Care 141 mg/dL (70-110)
[2022-07-21] MEDS: aspirin 81 mg EC Tablet PO (10:06)
[2022-07-21] MEDS: acetaminophen 325 mg Tablet 650 MG PO (10:06)
[2022-07-21] MEDS: gabapentin 100 mg Capsule PO ×3 (10:06→20:39)
[2022-07-21] MEDS: pantoprazole 40 mg SDV IVP (10:07)
--- NOTE | 2022-07-21 12:05 | PC.NURSE ---
Procedure start time 139/[address] Hager visualized right sided fluid pocket with ultrasound and marked appropriate site. Patient tolerating position and procedure appropriately. Procedure finish time 1215.
--- NOTE | 2022-07-21 12:14 | PC.SOCIAL ---
IMM update IMM updated with patient and . Copy PG 2 provided. Verbalized an understanding. Initialled, dated, timed, and placed in chart.
--- NOTE | 2022-07-21 12:17 | XR_ITS ---
WS: [id number] XR chest 1V portable [id number] REASON FOR EXAM: post thora FINDINGS: No right pneumothorax. Atelectasis in the right lower lobe and some residual right pleural fluid. Improvement in the reticular interstitial and groundglass opacities in the lower lung cristina compared to 07/14/2022. XR/XR chest 1V portable [id number] IMPRESSION: No pneumothorax postthoracentesis. Persistent atelectasis left lower lobe. Improving lung opacities.
[2022-07-21 12:53] LABS: Glucose Point of Care 167 mg/dL (70-110)
[2022-07-21 13:59] LABS: Appearance, Pleural Fluid CLOUDY (CLEAR); Color, Pleural Fluid Yellow (Pale Yellow)
[2022-07-21 14:00] LABS: Mononuclear %, Pleural Fluid 83 %; Polynuclear Cells, Pleural % 18 %
[2022-07-21 14:37] LABS: LDH Pleural Fluid 183 U/L; Total Protein Pleural Fluid 2.5 g/dL
[2022-07-21 14:40] LABS: PATH Referal NO
--- NOTE | 2022-07-21 15:40 | P.PN_ITS ---
Subjective Subjective: Patient was seen and examined this morning, overall doing better, was seen eating breakfast, s/p right-sided thoracentesis today. Medications: Medication Review Details: Generic Name Dose Route Start Last Admin Trade Name Freq PRN Reason Stop Dose Admin Acetaminophen 650 mg 07/14/22 03:35 07/21/22 10:06 Acetaminophen 32 5 Mg Tablet PO 650 mg Q6H PRN Administration Mild/Mod Pain Or Temp >/= 101 Aspirin 81 mg 07/20/22 11:40 07/21/22 10:06 Aspirin 81 Mg Ec Tablet PO 81 mg DAILY SHIRA Administration Enoxaparin Sodium 40 mg 07/18/22 09:00 07/20/22 09:17 Enoxaparin 40 Mg /0.4 Ml Syringe SUBCUT 40 mg Q24H SHIRA Administration Gabapentin 100 mg 07/20/22 15:00 07/21/22 10:06 Gabapentin 100 M g Capsule PO 100 mg TID SHIRA Administration Hydromorphone HCl 0.5 mg 07/15/22 10:06 07/21/22 14:39 Hydromorphone 1 Mg/Ml Inj 1 Ml IVP 0.5 mg Q4H PRN Administration Pain scale 6-10 Piperacillin Sod/T azobactam 50 mls @ 12.5 mls /hr 07/14/22 04:00 07/21/22 10:07 Sod 3.375 gm/ So dium Chloride IV 12.5 mls/hr Q8H SHIRA Administration Protocol Norepinephrine Bit artrate 4 mg 254 mls @ 0 mls/h r 07/14/22 05:15 07/16/22 10:40 / Dextrose IV Infused .Q0M SHIRA Titration Protocol Per Protocol Acetaminophen 1,000 mg in 100 m ls @ 400 mls/hr 07/14/22 19:00 07/19/22 16:08 Acetaminophen IV Infused Q12H PRN Infusion MILD PAIN Insulin Glargine 15 unit 07/18/22 21:00 07/20/22 21:54 Insulin Glargine 100 Units/1 Ml SUBCUT 15 unit BEDTIME SHIRA Administration Pantoprazole Sodiu m 40 mg 07/19/22 09:00 07/21/22 10:07 Pantoprazole 40 Mg Sdv IVP 40 mg DAILY SHIRA Administration Vitals/I&O/Wt Last Vital Signs Temp 98.3 F 07/21/22 12:00 Pulse 70 07/21/22 12:00 Resp 17 07/21/22 14:39 BP 136/71 07/21/22 12:00 Pulse Ox 98 07/21/22 14:39 O2 Del Method 07/21/22 12:00 O2 Flow Rate 2 07/20/22 20:00 07/21/22 07/21/22 07/21/22 06:59 14:59 22:59 Intake Total 270 / 1905 640 / 640 Output Total 350 / 1850 Balance -80 / 55 640 / 640 Physical Exam Narrative: Alert awake oriented he was able to tell me his name. HENMT: COMMON NORMALS: normocephalic and atraumatic HEAD & SCALP: no rmocephalic and atraumatic Resp: COMMON NORMALS: clear to auscultation bilaterally EFFORT & INSPECTION: Yes symmetric chest movement AUSCULTATION: clear to auscultation bilaterally OTHER: Diminished air entry in rt lung cristina Cardio: COMMON NORMALS: regular rate, regular rhythm, S1 normal heart sound present, S2 normal heart sound present, No gallops present (Cardio), No murmurs present (Cardio), No rub (Cardio) and Peripheral pulses 2+ throughout RATE: regular rate RHYTHM: regular rhythm HEART SOUNDS: S1 normal heart sound present and S2 normal heart sound present PERIPHERAL PULSES: Peripheral pulses 2+ throughout GI: AUSCULTATION: Yes normoactive bowel sounds RECTAL EXAM: Yes deferred OTHER: Right upper quadrant as well as right lumbar region, redness as well as tenderness present. Extremity: COMMON NORMALS: no clubbing, cyanosis or edema and no pedal edema Urinary Catheter Management: Bledsoe: Cath Placed During This Visit: yes Reason for Continuing Indwelling Catheter: Other Urinary Catheter Date of Insertion: 07/13/22 Urinary Catheter Time of Insertion: 23:45 Data 07/21/22 04:23 07/21/22 04:23 Micro: Microbiology 07/16/22 04:52 Blood Culture - Final Blood NO GROWTH AFTER 5 DAYS 07/16/22 04:45 Blood Culture - Final Blood NO GROWTH AFTER 5 DAYS A&P Assessment and plan (1) Sepsis: Present on admission. As evidenced by fever 103 Fahrenheit upon admission, elevated lactate, tachycardia, signs of endorgan dysfunction by way of altered mentation and NSTEMI. Source most likely UTI versus pneumonia. MRSA positive. Blood cultures positive for group A strep. Repeat blood cultures sent on 07/16. Urine culture not reported yet. For now continue with empiric Zosyn and vancomycin. Appreciate CT with contrast chest abdomen pelvis. CT concerning for bilateral pleural effusion, enlarged mediastinal lymph node, cystitis. CT foot negative for osteomyelitis. Ultrasound chest: small to moderate mildly complex RIGHT pleural effusion. (2) Gram-positive bacteremia: Antibiotics as above. Repeat blood culture sent on 07/16. Most likely patient will need antibiotics for overall 14 days after resolution of bacteremia. (3) Altered mental status: Altered mental status appears to be related to metabolic encephalopathy from sepsis, hypernatremia and chronic pain management with patient taking oxycodone 10 mg 5 times a day regularly. CT of his head is without any acute intracranial events. Frequent reorientation. Sitter at bedside. Treatment of hypernatremia as below. As blood pressures are better now we will start patient on Dilaudid 0.5 mg every 8 hourly scheduled with Q6 hourly as needed in between. If patient's mentation improves with this can increase the dose and frequency of Dilaudid. Precedex weaned accordingly. Haldol as needed. (4) CHENCHO (acute kidney injury): Resolved. Replace potassium. Baseline creatinine normal. Most likely combination of septic shock, contrast study in the ER on admission along with home dose of losartan and naproxen. CT abdomen pelvis negative for obstructive nephropathy. Strict input output charting. Continue to maintain mean arterial pressures above. Monitor BMP daily for now. (5) Hypernatremia: Currently serum sodium is 149 Has been started on D5 water at 100 cc an hour Monitor serum sodium Monitor mentation (6) NSTEMI (non-ST elevated myocardial infarction): Possibly type II NSTEMI in the setting of sepsis: Echocardiogram done shows an EF of 47%, moderately increased LV cavity, mild mitral regurgitation, mild increased LA size, trace TR. Patient has been on therapeutic anticoagulation for more than 48 hours.For now we will DC therapeutic anticoagulation. Continue aspirin (7) CHF (congestive heart failure): Echocardiogram showed an EF of 47% with dilated LV cavity, diastolic dysfunction. Mixed systolic and diastolic heart failure. Monitor fluid status. Strict input/output charting. Lasix as needed depending upon the fluid status (8) Acute cystitis: Follow-up urine cultures. (9) Septic shock: Levophed weaned off. Resolved. Continue to monitor blood pressures keeping mean arterial pressure over 65. (10) Dog bite of dorsum of foot: Domestic dog. CT of the foot negative for osteomyelitis. 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 S/p right-sided thoracentesis: With removal of 1200 cc yellow pleural fluid Pleural fluid analysis is consistent with exudative pleural effusion. Pleural fluid Gram stain culture is pending Pleural fluid cytology is pending Postthoracentesis chest x-ray : Has not shown any pneumothorax. Plan History of myelodysplastic syndrome/Hodgkin's lymphoma. GERD: Possibility of GI bleed as per as an outpatient. Hb stable. . Iron deficient. Start on IV iron supplementation Protonix twice daily. Right-sided abdominal pain, as well as tenderness with swelling and redness: S/p fall: Initial CT abdomen and pelvis: Has been reviewed. Ultrasound abdomen: Mildly enlarged liver. Coarsened echotexture. ?Prior c holecystectomy. Currently plan is to continue to monitor, if needed will do repeat CT abdomen and pelvis. Repeat CT abdomen and pelvis with IV contrast: Has shown: ?Acute nondisplaced fracture of the anterior right 9th rib with trace gas in the adjacent pleural space and musculature. No sign of significant intra- abdominal injury. CODE STATUS: Full code DVT prophylaxis on Lovenox Attestations Medical Necessity Statement*: Needs to be in hospital for management of sepsis IV antibiotics. Coding Level of Care Code 29416 Diagnoses Sepsis A41.9 Gram-positive bacteremia R78.81 Altered mental status R41.82 CHENCHO (acute kidney injury) N17.9 Hypernatremia E87.0 NSTEMI (non-ST elevated myocardial infarction) I21.4 CHF (congestive heart failure) I50.9 Acute cystitis N30.00 Septic shock A41.9; R65.21 Dog bite of dorsum of foot S91.359A; W54.0XXA Hodgkin lymphoma of intrathoracic lymph nodes C81.92 Type 2 diabetes mellitus without complications E11.9 Goals of care, counseling/discussion Z71.89 Rib fracture S22.39XA Pleural effusion J90
[2022-07-21 17:19] LABS: Glucose Point of Care 167 mg/dL (70-110)
[2022-07-21] MEDS: insulin glargine 100 units/1 mL 10 UNIT SUBCUT (20:54)
[2022-07-21 21:20] LABS: Glucose Point of Care 198 mg/dL (70-110)
[2022-07-22 00:40] VITALS: RESP 16
[2022-07-22] MEDS: HYDROmorphone 1 mg/mL INJ 1 mL 0.5 MG IVP ×3 (00:40→10:49)
[2022-07-22] MEDS: piperacillin-tazobactam 3.375 GM in sodium chloride 0.9% (plus) 50 ML IV ×2 (01:29→08:23)
[2022-07-22 04:00] VITALS: BP 148/71; PULSE 67; RESP 18; TEMP 36.9; O2SAT 96
[2022-07-22 04:24] LABS: Basophils % 0.4 %; Eosinophils # 0.2 10^3/uL (0.0-0.8); Hematocrit 34.4 % (42.0-52.0); Hemoglobin 10.7 g/dL (11.7-16.6); Lymphocytes # 1.6 10^3/uL (0.8-4.8); Lymphocytes % 21.8 %; Mean Corpuscular HGB Conc 31.1 g/dL (30.0-36.0); Mean Corpuscular Hemoglobin 29.8 pg (28.0-34.0); Mean Corpuscular Volume 95.8 fl (80-94); Mean Platelet Volume 12.3 fL (7.4-10.4); Monocytes # 0.5 10^3/uL (0.2-0.9); Neutrophils # 5.11 10^3/uL (1.8-7.7); Neutrophils % 68.6 %; Nucleated Red Blood Cells % 0 %; Platelet Count 180 10^3/cmm (130-400); Red Blood Count 3.59 10^6/uL (4.1-5.3); Red Cell Distribution Width 16.1 % (12.1-15.1); White Blood Count 7.5 10^3/uL (4.0-10.0)
[2022-07-22 04:41] VITALS: RESP 16; O2SAT 97
[2022-07-22 04:48] LABS: Anion Gap 11.4 (5-19); Blood Urea Nitrogen 12 mg/dL (8-23); Calcium 7.9 mg/dL (8.5-10.5); Carbon Dioxide 29 mmol/L (22-29); Chloride 106 mmol/L (98-107); Glomerular Filtration Rate 111.5 mL/min (90-130); Glucose 168 mg/dL (65-115); Osmolality Calculated 300 mOsm/kg (285-295); Potassium 3.4 mmol/L (3.5-5.1); Sodium 143 mmol/L (136-145)
--- NOTE | 2022-07-22 05:00 | XRR_ITS ---
PROCEDURE INFORMATION: Exam: XR Chest Exam date and time: 07/22/2022 4:36 AM Age: 72 years old Clinical indication: Shortness of breath; Prior surgery; Surgery date: 1-6 months; Surgery type: Port; Patient HX: HX hodgkins lymphoma; Additional info: B/l pleural effusion TECHNIQUE: Imaging protocol: Radiologic exam of the chest. Views: 1 view. COMPARISON: CR (CHEST, ) 07/14/2022 12:04 AM FINDINGS: Tubes, catheters and devices: There is a right chest port with the line tip appropriately positioned in the lower SVC near the cavoatrial junction. Lungs: There is opacification of the right lung base. The left lung is clear. Pleural spaces: The right lateral costophrenic sulcus is blunted. No pneumothorax. Heart/Mediastinum: There is mild enlargement of the cardiac silhouette. Bones/joints: Bones are unremarkable. XR/XR chest 1V portable [id number] IMPRESSION: 1. Stable right pleural effusion and right lower lung atelectasis since 07/14/2022. 2. Satisfactory chest port position.
[2022-07-22 06:23] LABS: Glucose Point of Care 124 mg/dL (70-110)
[2022-07-22 08:00] VITALS: BP 142/66; PULSE 66; RESP 16; TEMP 36.6; O2SAT 99
[2022-07-22] MEDS: aspirin 81 mg EC Tablet PO (08:22)
[2022-07-22] MEDS: acetaminophen 325 mg Tablet 650 MG PO (08:22)
[2022-07-22] MEDS: pantoprazole 40 mg SDV IVP (08:22)
[2022-07-22] MEDS: gabapentin 100 mg Capsule PO (08:22)
[2022-07-22] MEDS: enoxaparin 40 mg/0.4 mL Syringe SUBCUT (08:22)
[2022-07-22] MEDS: cefTRIAXone 2,000 MG in sodium chloride 0.9% (plus) 50 ML 100 MG IV (10:47)
[2022-07-22] MEDS: potassium chloride oral liq 20 mEq/15 mL UDC PO (10:48)
--- NOTE | 2022-07-22 11:03 | P.DS_ITS ---
Discharge Providers Date of Admission: 07/14/22 02:00 Date of Discharge: July 22, 2022 Attending Provider at Admission: Anu Preciado MD Attending Provider at Discharge: Antonio Mathis MD Primary Care Provider: Ramirez Sheriff MD Diagnoses at Discharge Discharge Diagnosis (1) Sepsis: Status: Acute (2) Gram-positive bacteremia: Status: Acute (3) Altered mental status: Status: Acute (4) CHENCHO (acute kidney injury): Status: Acute (5) Hypernatremia: Status: Acute (6) NSTEMI (non-ST elevated myocardial infarction): Status: Acute (7) CHF (congestive heart failure): Status: Acute (8) Acute cystitis: Status: Acute (9) Septic shock: Status: Acute (10) Dog bite of dorsum of foot: Status: Acute (11) Hodgkin lymphoma of intrathoracic lymph nodes: Status: Acute Permanent problem details: Post transplant lymphoproliferative disorder (12) Type 2 diabetes mellitus without complications: Status: Acute (13) Goals of care, counseling/discussion: Status: Acute (14) Rib fracture: Status: Acute (15) Pleural effusion: Status: Acute Reason for Visit Reason for Visit: [facility] Hospital Course Hospital Course 72 year old male with a past medical history of myelodysplastic syndrome, status post bone marrow transplant in 2005, history of lymphoma in complete remission since 2014.?Presented to the hospital with chief complaint of altered mental status during the hospital stay he was managed for sepsis, blood culture was positive for group A streptococci , MRSA nares was positive repeat blood culture was negative, CT of the left foot was done which ruled out osteomyelitis, showed Subcutaneous edema about the foot without focal fluid collection or acute bony abnormality. CT chest abdomen and pelvis was also done: Was negative for any pulmonary embolism showed Moderate to large bilateral pleural effusio ns.Pulmonary vascular congestion.?L2 vertebral body compression fracture without retropulsion of bony fragments.Spleen enlarged to 16.[address] head without contrast was negative for any acute intracranial pathology, initially patient was kept on broad-spectrum antibiotics, to which he responded fairly well, repeat blood culture was negative, patient was discharged on ceftriaxone 2 g IV daily for 2 weeks. 2D echo done during the hospital stay had shown: ?Diffuse hypokinesia of the left ventricula with an LV? ejection ?fraction of 47%. moderately ncreased left ventricular cavity ?size. Thickened mitral valve. Mildmitral valve regurgitation. Mild ?mitral annular calcification. ?Mildly increased left atrial size. ?Trace of tricuspid and pulmonic regurgitation ?Thickened aortic valve. Mild aortic valve regurgitation. Patient was initially also managed for possible NSTEMI, he was initially kept on therapeutic anticoagulation with Lovenox , along with aspirin, later therapeutic anticoagulation was discontinued roughly after 48 hours, during the hospital stay patient had denied any significant chest pain, in view of the overall echo findings Patient will need cardiac work-up, in the near future, he has been advised to see cardiology as outpatient, once he recovered completely from this septic state. During the hospital stay patient also underwent right-sided thoracentesis with removal of 1200 cc yellow fluid, pleural fluid analysis is consistent with exudative pleural effusion, pleural fluid cytology is pending, pleural fluid Gram stain and culture has shown, few white blood cells no organisms seen. Bilateral pleural effusion could be possible secondary to decompensated heart failure, though the pleural fluid analysis is consistent with exudative effusio n, possibility of pseudo exudative effusion cannot be conclusively ruled out as the patient received Lasix during the hospital stay. Underlying pneumonia could be a possibility of exudative pleural effusion. For now patient has been discharged on Lasix 20 p.o. daily, along with oral potassium supplement, patient has been asked to follow-up with his primary care physician as well as cardiology as outpatient. During the hospital stay patient was also complaining of significant right upper quadrant as well as right lower quadrant abdominal pain, ultrasound abdomen was done: Liver: 18.4 cm in length. Mildly enlarged liver. Coarsened echotexture. No mass identified. No bile duct dilatation.Portal Vein: Normal hepatopetal flow with monophasic waveform. Repeat CT abdomen and pelvis was also done: Showed: Acute nondisplaced fracture of the anterior right 9th rib with trace gas in the adjacent pleural space and musculature.No sign of significant intra- abdominal injury. Acute nondisplaced rib fracture is secondary to history of recent fall. Patient takes oxycodone at home for history of chronic back pain, has been asked to continue the same, for better pain control due to the rib fracture. Overall patient has responded well to above medical management and is being discharged in stable condition to home. Physical Exam Narrative: Alert awake oriented he was able to tell me his name. HENMT: COMMON NORMALS: normocephalic and atraumatic HEAD & SCALP: normocephalic and atraumatic Resp: COMMON NORMALS: clear to auscultation bilaterally EFFORT & INSPECTION: Yes symmetric chest movement AUSCULTATION: clear to auscultation bilaterally OTHER: Diminished air entry in rt lung cristina predominantly at bases Cardio: COMMON NORMALS: regular rate, regular rhythm, S1 normal heart sound present, S2 normal heart sound present, No gallops present (Cardio), No murmurs present (Cardio), No rub (Cardio) and Peripheral pulses 2+ throughout RATE: regular rate RHYTHM: regular rhythm HEART SOUNDS: S1 normal heart sound present and S2 normal heart sound present PERIPHERAL PULSES: Peripheral pul ses 2+ throughout GI: AUSCULTATION: Yes normoactive bowel sounds RECTAL EXAM: Yes deferred OTHER: Right upper quadrant as well as right lumbar region, redness as well as tenderness present. Extremity: COMMON NORMALS: no clubbing, cyanosis or edema and no pedal edema Urinary Catheter Management: Bledsoe: Cath Placed During This Visit: yes, but has since been removed by the nurse Reason for Continuing Indwelling Catheter: Decision to DC Catheter Urinary Catheter Date of Insertion: 07/13/22 Urinary Catheter Time of Insertion: 23:45 Date Urinary Catheter Removed: 07/21/22 Time Urinary Catheter Discontinued: 16:35 Discharge Data Studies Completed and Pending Completed Studies During Hospitalization Category Date Time Status CT abdomen pelvis w con* [id number] Routine Cat Scan 07/20/22 11:[address] angio chest w abd pel w con Stat Cat Scan 07/14/22 00:[address] foot LT wo con* [id number] Routine Cat Scan 07/14/22 19:[address] head wo con* [id number] Stat Cat Scan 07/13/22 23:26 Completed XR chest 1V portable [id number] Routine Exams 07/22/22 05:00 Completed XR chest 1V portable [id number] Stat Exams 07/13/22 23:26 Completed XR chest 1V portable [id number] Stat Exams 07/21/22 12:17 Completed CV. echo complete* [id number] Routine Ultrasound 07/14/22 06:30 Completed US abdomen complete* [id number] Routine Ultrasound 07/17/22 10:47 Completed [place] chest [id number] Routine Ultrasound 07/18/22 12:42 Completed US thoracentesis [id number] Routine Ultrasound 07/21/22 08:00 Completed Pending at discharge Category Date Time Status BMP [Basic Metabolic Panel] AM LABS Lab 07/23/22 04:00 Ordered Body Fluid Culture & GS Routine Lab 07/20/22 18:15 Received CBC Auto Diff [Complete Blood Count w/Auto] AM LABS Lab 07/23/22 04:00 Ordered Radiology Impressions Head CT 07/13/22 23:26 IMPRESSION: 1. No evidence of acute intracranial hemorrhage, mass effect, or midline shift. 2. Please note that CT is insensitive to nonhemorrhagic strokes and MRI of the brain should be considered if there is clinical concern for acute cerebral infarction. Chest/Abdomen/Pelvis CT 07/14/22 00:08 IMPRESSION: 1. Negative for pulmonary embolus. 2. Moderate to large bilateral pleural effusions. 3. Pulmonary vascular congestion. 4. Cardiomegaly. 5. Scattered enlarged mediastinal lymph nodes measuring up to 13.9 mm, nonspecific. 6. Coronary artery atherosclerotic 7. Right-sided central venous catheter. 8. Ascending thoracic aorta is somewhat dilated at 3.7 cm. IMPRESSION: 1. Urinary bladder wall thickening may reflect a cystitis or be due to nondistention, please correlate clinically. 2. L2 vertebral body compression fracture without retropulsion of bony fragments. 3. Right hip arthroplasty changes. 4. Cholecystectomy. 5. Spleen enlarged to 16.8 cm. 6. Diverticulosis without diverticulitis. 7. Bledsoe catheter in the urinary bladder with air presumed iatrogenic. Foot CT 07/14/22 19:06 IMPRESSION: 1. Subcutaneous edema about the foot without focal fluid collection or acute bony abnormality. 2. Calcified heel spur. 3. Distal Achilles tendon degenerative calcification. Abdomen Ultrasound 07/17/22 10:47 IMPRESSION: 1. Limited abdominal ultrasound. 2. Prior cholecystectomy. 3. Pancreas not visualized. 4. No bile duct dilatation. 5. Small RIGHT pleural effusion. Chest Ultrasound 07/18/22 12:42 IMPRESSION: [id number] RIGHT pleural effusion. Abdomen/Pelvis CT 07/20/22 11:18 IMPRESSION: 1. Acute nondisplaced fracture of the anterior right 9th rib with trace gas in the adjacent pleural space and musculature. 2. No sign of significant intra-abdominal injury. 3. Suggestive findings of cystitis. Correlate with urinalysis. 4. Mild mesenteric edema and trace pelvic free fluid is new since 07/14/2022. Nonspecific finding. This finding may be related to a systemic process. There is no other sign of peritonitis. 5. Bilateral pleural effusions are similar to 07/14/2022 but are incompletely imaged. 6. Moderate splenic enlargement. 7. Incidental findings above. Thoracentesis Ultrasound 07/21/22 08:00 IMPRESSION: 1. Uncomplicated ultrasound-guided RIGHT thoracentesis. 2. Removal 1200 cc Chest X-Ray 07/22/22 05:00 IMPRESSION: 1. Stable right pleural effusion and right lower lung atelectasis since 07/14/2022. 2. Satisfactory chest port position. Laboratory Results WBC 7.5 10^3/uL (4.0-10.0) 07/22/22 03:18 RBC 3.59 10^6/uL (4.1-5.3) L 07/22/22 03:18 Hgb 10.7 g/dL (11.7-16.6) L 07/22/22 03:18 Hct 34.4 % (42.0-52.0) L 07/22/22 03:18 MCV 95.8 fl (80-94) H 07/22/22 03:18 MCH 29.8 pg (28.0-34.0) 07/22/22 03:18 MCHC 31.1 g/dL (30.0-36.0) 07/22/22 03:18 RDW 16.1 % (12.1-15.1) H 07/22/22 03:18 Plt Count 180 10^3/cmm (130-400) 07/22/22 03:18 MPV 12.3 fL (7.4-10.4) H 07/22/22 03:18 Gran % % (42.2-75.2) 07/20/22 05:38 Neut % (Auto) 68.6 % 07/22/22 03:18 Lymph % (Auto) 21.8 % 07/22/22 03:18 Morris % (Auto) 6.0 % 07/22/22 03:18 Eos % (Auto) 2.0 % 07/22/22 03:18 Baso % (Auto) 0.4 % 07/22/22 03:18 Neut # (Auto) 5.11 10^3/uL (1.8-7.7) 07/22/22 03:18 Lymph # (Auto) 1.6 10^3/uL (0.8-4.8) 07/22/22 03:18 Morris # (Auto) 0.5 10^3/uL (0.2-0.9) 07/22/22 03:18 Eos # (Auto) 0.2 10^3/uL (0.0-0.8) 07/22/22 03:18 Baso # (Auto) 0.0 10^3/uL (0.0-0.1) 07/22/22 03:18 Nucleated RBC % (auto) 0 % 07/22/22 03:18 Total Counted TNP 07/21/22 12:15 Atypical Lymphs % 20.0 % (0-5) H 07/19/22 01:00 Absolute Neutrophils 4.7 10^3/cmm (1.4-6.5) 07/19/22 01:00 Segmented Neutrophils 59 % 07/19/22 01:00 Abs Segm Neuts (Man) 4.4 10/cmm (1.6-7.1) 07/19/22 01:00 Band Neutrophils 3.0 % 07/19/22 01:00 Abs Band Neuts (Man) 0.2 10^3/cmm (0.0-1.2) 07/19/22 01:00 Absolute Lymphocytes 2.4 10^3/cmm (1.2-3.4) 07/19/22 01:00 Lymphocytes (Manual) 12 % 07/19/22 01:00 Monocytes (Manual) 4.0 % 07/19/22 01:00 Absolute Monocytes 0.3 10^3/cmm (0.1-0.6) 07/19/22 01:00 Eosinophils (Manual) 2 % 07/19/22 01:00 Absolute Eosinophils 0.1 10^3/cmm (0.0-0.7) 07/19/22 01:00 Basophils (Manual) 0.0 % 07/19/22 01:00 Absolute Basophils 0.0 10^3/cmm (0.0-0.2) 07/19/22 01:00 Nucleated RBCs # 0.0 /100WBC 07/22/22 03:18 Platelet Estimate Normal (Normal) 07/19/22 01:00 Polychromasia Trace 07/19/22 01:00 Anisocytosis 2+ H 07/19/22 01:00 Macrocytosis 1+ H 07/19/22 01:00 Spherocytes Trace 07/13/22 23:32 PT 18.10 SECONDS (12.1-14.9) H 07/21/22 04:23 INR 1.45 (0.8-1.2) H 07/21/22 04:23 D-Dimer 5.67 ug/mIFEU (0-0.59) H 07/14/22 07:55 Specimen Type Arterial 07/15/22 11:05 Sample Site Radial, left 07/15/22 11:05 ABG pH 7.31 (7.35-7.45) L 07/15/22 11:05 ABG pCO2 42.1 mmHg (35-45) 07/15/22 11:05 ABG pO2 80.1 mmHg (80.0-100.0) 07/15/22 11:05 ABG HCO3 21.4 mmol/L (22-26) L 07/15/22 11:05 ABG O2 Saturation 96.0 07/15/22 11:05 ABG Base Excess -4.6 mmol/L (-2.0-2.0) L 07/15/22 11:05 Catalino Test Pos 07/15/22 11:05 A-a O2 Gradient 2.2 mmHg (5-10) L 07/15/22 11:05 Hematocrit 35.3 % (42-52) L 07/15/22 11:05 Hgb O2 Saturation 94.2 % (95-100) L 07/15/22 11:05 Carboxyhemoglobin 1.4 %THgb (0.4-20.1) 07/15/22 11:05 Methemoglobin 0.5 % (0.4-1.5) 07/15/22 11:05 Total Hemoglobin 11.5 g/dL (14-18) L 07/15/22 11:05 Sodium 147.0 mmol/L (131-143) H 07/15/22 11:05 Potassium 3.8 mmol/L (3.5-5.0) 07/15/22 11:05 Glucose 149.0 mg/dL (70-115) H 07/15/22 11:05 Ionized Calcium 1.2 mmol/L (1.1-1.4) 07/15/22 11:05 O2 Delivery Device Nc 07/15/22 11:05 O2 Liters/Min 2.0 % 07/15/22 11:05 FiO2 32.0 % 07/14/22 11:42 Surveillance Officer ID Cak 07/15/22 11:05 Sodium 143 mmol/L (136-145) 07/22/22 03:18 Potassium 3.4 mmol/L (3.5-5.1) L 07/22/22 03:18 Chloride 106 mmol/L (98-107) 07/22/22 03:18 Carbon Dioxide 29 mmol/L (22-29) 07/22/22 03:18 Anion Gap 11.4 (5-19) 07/22/22 03:18 BUN 12 mg/dL (8-23) 07/22/22 03:18 Creatinine 0.7 mg/dL (0.7-1.2) 07/22/22 03:18 GFR Calculation 111.5 mL/min (90-130) 07/22/22 03:18 Glucose 168 mg/dL (65-115) H 07/22/22 03:18 POC Glucose 124 mg/dL (70-110) H 07/22/22 06:14 Estimat Average Glucose 128 07/15/22 04:30 Hemoglobin A1c 6.1 % (4.0-6.0) H 07/15/22 04:30 Calculated Osmolality 300 mOsm/kg (285-295) H 07/22/22 03:18 Lactate 2.1 mmol/L (0.5-2.2) 07/14/22 02:04 Calcium 7.9 mg/dL (8.5-10.5) L 07/22/22 03:18 Magnesium 2.3 mg/dL (1.7-2.3) 07/15/22 04:30 Iron 11 ug/dL (59-158) L 07/14/22 04:15 TIBC 138 mcg/dl 07/14/22 04:15 % Saturation 7.9 % (20-50) L 07/14/22 04:15 Unsat Iron Binding 127 ug/dL (112-347) 07/14/22 04:15 Total Bilirubin 1.1 mg/dL (0.15-1.2) 07/21/22 04:23 AST 17 U/L (0-40) 07/21/22 04:23 ALT 13 U/L (0-41) 07/21/22 04:23 Alkaline Phosphatase 92 U/L (40-130) 07/21/22 04:23 Lactate Dehydrogenase 186 U/L (135-225) 07/21/22 04:23 Troponin T Baseline 110 ng/L (0-15) H* 07/14/22 02:09 Troponin T 120 Minute 114.8 ng/L (0-15) H 07/14/22 04:15 Delta Troponin T 4.8 ABS# (0-10) 07/14/22 04:15 Troponin T Hi Sens 6Hr 123.9 ng/L (0-15) H 07/14/22 07:55 Troponin T Hi Sens 6Hr Delta 13.9 ng/L (0-12) H* 07/14/22 07:55 C-Reactive Protein 269.7 mg/L (0.0-4.9) H 07/13/22 23:32 NT-Pro-B Natriuret Pep 08649 pg/mL (0-125) H 07/14/22 04:15 Total Protein 6.0 g/dL (6.6-8.7) L 07/21/22 04:23 Albumin 2.7 g/dL (3.5-5.2) L 07/21/22 04:23 Globulin 3.3 g/dL (1.3-4.6) 07/21/22 04:23 Triglycerides 177 mg/dL (0-150) H 07/15/22 04:30 Cholesterol 72 mg/dL (0-200) 07/15/22 04:30 LDL Cholesterol, Calc 22 mg/dL (50-129) L 07/15/22 04:30 Total VLDL Cholesterol 35 mg/dL (0-30) H 07/15/22 04:30 HDL Cholesterol 15 mg/dL (60-100) L 07/15/22 04:30 LDL/HDL Ratio 1.47 RATIO (0.00-3.22) 07/15/22 04:30 Cholesterol/HDL Ratio 4.80 mg/dL (1.0-5.00) 07/15/22 04:30 Lipase 8 U/L (13-60) L 07/14/22 04:15 Vitamin B12 > 2000 pg/mL (232-1245) H 07/14/22 04:15 Folate 11.0 ng/mL (4.5-32.2) 07/13/22 23:32 Procalcitonin 62.54 ng/mL (0-0.5) H 07/15/22 04:30 TSH 1.19 uIU/mL (0.27-4.20) 07/15/22 04:30 Urine Color Dark yellow (Yellow) 07/13/22 23:56 Urine Appearance Clear (CLEAR) 07/13/22 23:56 Urine pH 5 (5-7) 07/13/22 23:56 Ur Specific [place] 1.020 (1.005-1.030) 07/13/22 23:56 Urine Protein 3+ (Negative) H 07/13/22 23:56 Urine Glucose (UA) 2+ (Normal) H 07/13/22 23:56 Urine Ketones 2+ (Negative) H 07/13/22 23:56 Urine Blood 3+ (Negative) H 07/13/22 23:56 Urine Nitrate Positive (Negative) H 07/13/22 23:56 Urine Bilirubin 1+ (Negative) H 07/13/22 23:56 Urine Urobilinogen 1 mg/dL (Negative) H 07/13/22 23:56 Ur Leukocyte Esterase Trace (Negative) H 07/13/22 23:56 Urine RBC 5-10 /hpf (0-2) H 07/13/22 23:56 Urine WBC 0-4 /hpf (0-5) H 07/13/22 23:56 Ur Squamous Epith Cells 0-4 /hpf (0-5) H 07/13/22 23:56 Amorphous Sediment 1+ /hpf 07/13/22 23:56 Urine Bacteria 2+ /hpf (NONE) H 07/13/22 23:56 Pleural Color Yellow (Pale Yellow) H 07/21/22 12:15 Pleural Appearance Cloudy (CLEAR) 07/21/22 12:15 Pleural pH 8.00 (6.5-7.5) H 07/21/22 12:15 Pleural WBC 588.000 /uL (0-1000) 07/21/22 12:15 Pleural RBC 1.000 10^3/uL 07/21/22 12:15 Pleural Other Cells TNP 07/21/22 12:15 Pleural Polynuclear % 18 % 07/21/22 12:15 Pleural Mononuclear % 83 % 07/21/22 12:15 Pleural Total Protein 2.5 g/dL 07/21/22 12:15 Pleural LDH 183 U/L 07/21/22 12:15 Pleural Glucose 151.0 mg/dL 07/21/22 12:15 Vancomycin Trough 13.2 ug/mL (10-15) 07/19/22 01:00 Urine Opiates Screen Negative ng/mL (Negative) 07/13/22 23:56 Ur Barbiturates Screen Negative ng/mL (Negative) 07/13/22 23:56 Ur Phencyclidine Scrn Negative ng/mL (Negative) 07/13/22 23:56 Ur Amphetamines Screen Negative ng/mL (Negative) 07/13/22 23:56 U Benzodiazepines Scrn Negative ng/mL (Negative) 07/13/22 23:56 Urine Cocaine Screen Negative ng/mL (Negative) 07/13/22 23:56 U Marijuana (THC) Screen Negative ng/mL (Negative) 07/13/22 23:56 Ethyl Alcohol < 10 mg/dL (0-10) 07/13/22 23:32 Influenza Type A Ag negative (Negative) 07/13/22 23:33 Influenza Type B Ag negative (Negative) 07/13/22 23:33 SARS-CoV-2 Ag (Rapid) negative (Negative) 07/13/22 23:33 Path Cons w/Slide No 07/21/22 12:15 Vitals Last Vital Signs Temp 97.8 F 07/22/22 08:00 Pulse 66 07/22/22 08:00 Resp 16 07/22/22 08:00 BP 142/66 07/22/22 08:00 Pulse Ox 99 07/22/22 08:00 O2 Del Method 07/22/22 04:00 O2 Flow Rate 0 07/22/22 08:00 Discharge Plan Discharge Patient Disposition: Home Condition: Stable Prescriptions: New Lasix 20 mg tablet 20 mg PO DAILY 30 Days Qty: 30 0RF Klor-Con 20 mEq packet 20 meq PO DAILY Qty: 30 0RF Continued naproxen sodium [Flanax (naproxen)] 220 mg tablet 220 mg PO BID PRN (Reason: Pain) albuterol sulfate [ProAir HFA] 90 mcg/actuation HFA aerosol inhaler 2 puff inhalation Q6H PRN (Reason: shortness of breath or wheezing) Qty: 8.5 6RF pantoprazole 40 mg tablet,delayed release (DR/EC) See Rx Instructions .ROUTE .COMPLEX Qty: 90 0RF Dose Instruction: TAKE 1 TABLET BY MOUTH DAILY Rx Instructions: TAKE 1 TABLET BY MOUTH DAILY gabapentin 800 mg tablet 800 mg PO QID Qty: 120 6RF acetaminophen [Tylenol Arthritis Pain] 650 mg Tablet Extended Release 1,300 mg PO PRN losartan 25 mg Tablet 25 mg PO QAM insulin glargine [Lantus Solostar U-100 Insulin] 100 unit/mL (3 mL) Insulin Pen See Rx Instructions .ROUTE .COMPLEX Rx Instructions: 30 UNITS AM AND 30 UNITS PM oxycodone 10 mg tablet 10 mg PO 5XD MDD 6 tab PRN (Reason: Pain) insulin lispro [Humalog U-100 Insulin] 100 unit/mL Solution See Rx Instructions .ROUTE .COMPLEX Rx Instructions: sliding scale tid dimenhydrinate [Dramamine] 50 mg Tablet 50 mg PO Q8H PRN (Reason: Dizziness) Centrum Silver Men 300-600-300 mcg Tablet 1 tab PO DAILY ondansetron 4 mg tablet,disintegrating 4 mg PO Q6H PRN (Reason: nausea and vomiting) Qty: 14 0RF Discharge Orders: Discharge Order (Routine); Ordered 07/22/22 Ordered By: Antonio Mathis Other Ambulatory Orders: DME: Wheelchair (Order) Location: None Selected Ordered By: Antonio Mathis Ref[place]: [place]Outside] [facility] [place] [Outside] Jessie Davis FNP [Nurse Practitioner] - 1 week ([facility] will call with your followup appointment.) Ramirez Sheriff MD [Primary Care Provider] - 1 week (Please call Sunday to schedule your follow up with Dr. Sheriff.) Patient Instructions: Furosemide (By mouth), Potassium Chloride (By mouth), Pleural Effusion (GEN), How to Care for Your Midline Catheter (GEN), Opioid Safety Discharge Attestations Time Spent in Discharge Care*: less than 30 min Quality Metrics Clinical Quality Measures [ No reported AMI, CVA or VTE this stay] Coding Level of Care Code Acute Code for g Fwd Diagnoses Sepsis A41.9 Gram-positive bacteremia R78.81 Altered mental status R41.82 CHENCHO (acute kidney injury) N17.9 Hypernatremia E87.0 NSTEMI (non-ST elevated myocardial infarction) I21.4 CHF (congestive heart failure) I50.9 Acute cystitis N30.00 Septic shock A41.9; R65.21 Dog bite of dorsum of foot S91.359A; W54.0XXA Hodgkin lymphoma of intrathoracic lymph nodes C81.92 Type 2 diabetes mellitus without complications E11.9 Goals of care, counseling/discussion Z71.89 Rib fracture S22.39XA Pleural effusion J90
[2022-07-22 11:38] VITALS: BP 134/61; PULSE 61; TEMP 36.6; O2SAT 98
[2022-07-22 12:10] LABS: Glucose Point of Care 220 mg/dL (70-110)
[2022-07-22 12:55] VITALS: BP 134/61; PULSE 61; TEMP 36.6; O2SAT 98
== END 2022-07-22 12:56 | disposition home health service (06) | DRG 871 ==
LOC: ER 07-14 02:03 → CSU 07-14 02:11 → ICU 07-14 05:27 → MEDSURG 07-19 13:22
PROVIDERS: Student in an Organized Health Care Education/Training Program; Admitting Provider Student in an Organized Health Care Education/Training Program; Emergency Provider Emergency Medicine; PCP Family Medicine; Visit Provider Internal Medicine
DX: A41.9 Sepsis, unspecified organism (principal); G93.41 Metabolic encephalopathy; R65.21 Severe sepsis with septic shock; I21.4 Non-ST elevation (NSTEMI) myocardial infarction; I50.43 Acute on chronic combined systolic (congestive) and diastolic (congestive) heart failure; S22.31XA Fracture of one rib, right side, initial encounter for closed fracture; N17.9 Acute kidney failure, unspecified; Z94.81 Bone marrow transplant status; J90 Pleural effusion, not elsewhere classified; L03.116 Cellulitis of left lower limb; E87.0 Hyperosmolality and hypernatremia; I42.0 Dilated cardiomyopathy; N30.00 Acute cystitis without hematuria; B95.62 Methicillin resistant Staphylococcus aureus infection as the cause of diseases classified elsewhere; D46.9 Myelodysplastic syndrome, unspecified; Z85.72 Personal history of non-Hodgkin lymphomas; I11.0 Hypertensive heart disease with heart failure; W19.XXXA Unspecified fall, initial encounter; G89.29 Other chronic pain; Z79.51 Long term (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 of inhaled steroids; Z79.4 Long term (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 of insulin; Z79.891 Long term (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 of opiate analgesic; S91.352A Open bite, left foot, initial encounter; W54.0XXA Bitten by dog, initial encounter; I95.9 Hypotension, unspecified; Z96.641 Presence of right artificial hip joint; E11.65 Type 2 diabetes mellitus with hyperglycemia; E11.42 Type 2 diabetes mellitus with diabetic polyneuropathy; G47.33 Obstructive sleep apnea (adult) (pediatric); K21.9 Gastro-esophageal reflux disease without esophagitis
CPT/HCPCS: 32555; 36415; 36416; 36569; 36591; 36600; 51702; 70450; 71045; 71275; 73700; 74177; 76604; 76700; 80048; 80051; 80053; 80061; 80202; 80306; 80307; 80503; 81001; 81003; 82274; 82330; 82607; 82746; 82803; 82805; 82945; 82962; 83036; 83540; 83550; 83605; 83615; 83690; 83735; 83880; 83986; 84145; 84157; 84443; 84484; 85007; 85025; 85378; 85610; 86140; 87040; 87070; 87075; 87086; 87186; 87205; 87426; 87641; 87804; 89050; 92507; 92523; 92526; 92610; 93005; 93306; 96365; 96367; 96372; 96375; 96376; 97110; 97116; 97162; 97530; 99285; C1751; C9113; J0131; J0696; J1170; J1630; J1650; J1815; J1940; J2543; J3370; J3480; J7030; J7050; J7060; J7070; J7799; P9046; Q9967

== ENCOUNTER 2022-07-29 15:26 | Emergency (ER) | payer MEDICARE, SELFPAY ==
[2022-07-29 15:28] VITALS: BP 169/76; PULSE 64; RESP 18; TEMP 36.5; O2SAT 97; BMI 31.9
--- NOTE | 2022-07-29 15:59 | PC.NURSE ---
Pt arrived for PICC line placement issues. Yuniel DRIVER came to pt and assessed the PICC line and patency. Pt PICC line placement was confirmed and patency with multiple NS flushes by Yuniel DRIVER.
--- NOTE | 2022-07-29 16:01 | ED_ITS ---
HPI - Recheck/Abnormal Lab/Rx General: Chief Complaint: Recheck/Abnormal Lab/Rx Stated Complaint: picc line came out Time Seen by Provider: 07/29/22 15:58 History of Present Illness: Patient is a 72-year-old male who comes to the ED with PICC line complaint. Patient has PICC line for recent sepsis due to UTI. This morning he noticed minimal dried blood around his PICC line and he wanted to get it checked out because he is concerned it might of dislodged. Denies any other complaints such as redness, warmth, tenderness or any puslike drainage. Review of Systems Const: Denies: fever(s), chills or fatigue Eyes: Denies: change in vision or eye discomfort ENMT: Denies: throat pain, odynophagia, nasal discharge or nasal congestion Card: Denies: chest pain, palpitations, edema, swelling of feet/ankles, dyspnea on exertion or orthopnea Resp: Denies: dyspnea, productive cough or non-productive cough GI: Denies: abdominal pain, nausea, vomiting, diarrhea, constipation or hematochezia : Denies: flank pain, difficulty urinating, dysuria or hematuria Musc: Denies: neck pain, back pain or extremity swelling Skin/Breast: Reports: surgical incision (Left PICC line bleeding); Denies: rash or new lesions Neuro: Denies: headache(s), numbness in extremities or weakness in extremities PFSH ED PFSH: Medical History Acute cystitis CHENCHO (acute kidney injury) Altered mental status Altered mental status CHF (congestive heart failure) Degenerative arthritis Degenerative joint disease of spine Dog bite of dorsum of foot Essential hypertension GERD (gastroesophageal reflux disease) Goals of care, counseling/discussion Gram-positive bacteremia 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 History of pericarditis 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 Hypernatremia Iron overload 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 Myelodysplastic syndrome Initially diagnosed in July 2002 NSTEMI (non-ST elevated myocardial infarction) Obstructive sleep apnea Peripheral neuropathy Pleural effusion Rib fracture Sepsis Septic shock Type 2 diabetes mellitus without complications Surgical History 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) History of lumbar laminectomy History of tonsillectomy History of total right hip arthroplasty (2016) S/P ORIF (open reduction internal fixation) fracture (2014) Status post creation of pericardial window (2008) Social History Smoking and tobacco status: never smoked Physical Exam Const: COMMON NORMALS: patient oriented x3 HENMT: COMMON NORMALS: normocephalic HEAD & SCALP: normocephalic MOUTH: Normal oral and palatal mucosa present THROAT: posterior oropharynx normal and uvula midline Neck/C-Spine: COMMON NORMALS: supple GENERAL: Yes normal visual inspection Resp: COMMON NORMALS: normal respiratory effort, No retractions, No use of accessory muscles and clear to auscultation bilaterally AUSCULTATION: clear to auscultation bilaterally Cardio: COMMON NORMALS: regular rate, regular rhythm, S1 normal heart sound present, S2 normal heart sound present, No gallops present (Cardio), No clicks present (Cardio), No murmurs present (Cardio) and Peripheral pulses 2+ throughout RATE: regular rate RHYTHM: regular rhythm HEART SOUNDS: S1 normal heart sound present and S2 normal heart sound present PERIPHERAL PULSES: Peripheral pulses 2+ throughout GI: COMMON NORMALS: Normal to inspection, nondistended, normoactive bowel sounds present, Soft to palpation, non-tender and no masses PALPATION: Yes Soft to palpation : COMMON NORMALS: Yes no CVA tenderness BLADDER/KIDNEY EXAM: Yes no CVA tenderness Back/Pelvis: COMMON NORMALS: no CVA tenderness Extremity: NARRATIVE EXTREMITY EXAM: PICC line in left arm?PICC line is in place. Minimal amount of dried blood around PICC line seen. No active bleeding. No erythema, swelling, warmth, tenderness or puslike drainage seen. Neuro: COMMON NORMALS: patient oriented x3 GAIT: Yes Normal gait present Skin: GENERAL SKIN EXAM: dry skin Course Vital Signs: Vital signs: Vital Signs Temperature 97.7 F 07/29/22 15:28 Pulse Rate 64 07/29/22 15:28 Respiratory Rate 18 07/29/22 15:28 Blood Pressure 169/76 07/29/22 15:28 Pulse Oximetry 97 07/29/22 15:28 Oxygen Delivery Me thod 07/29/22 15:28 MDM - Recheck/Abnormal Lab/Rx Medical Decision Making Patient is a 72-year-old male who comes to the ED with PICC line complaint. He had very minimal bleeding and dried blood around PICC line and when to get it checked out. Denies any other complaints. PICC line in left arm?PICC line is in place. very Minimal amount of dried blood around PICC line seen. No active bleeding. No erythema, swelling, warmth, tenderness or puslike drainage seen. Everett the PICC line specialist came here to the ED and checked on patient's PICC line he was able to flush it and and there were no complications with PICC line and he was cleared for discharge and told to follow-up to continue getting his antibiotic treatment. Return ED precautions given. Patient understood and agreed with plan. Discharge Plan Discharge Patient Disposition: Home Clinical Impression: PICC (peripherally inserted central catheter) in place Condition: Stable Prescriptions: No Action naproxen sodium [Flanax (naproxen)] 220 mg tablet 220 mg PO BID PRN (Reason: Pain) albuterol sulfate [ProAir HFA] 90 mcg/actuation HFA aerosol inhaler 2 puff inhalation Q6H PRN (Reason: shortness of breath or wheezing) Qty: 8.5 6RF pantoprazole 40 mg tablet,delayed release (DR/EC) See Rx Instructions .ROUTE .COMPLEX Qty: 90 0RF Dose Instruction: TAKE 1 TABLET BY MOUTH DAILY Rx Instructions: TAKE 1 TABLET BY MOUTH DAILY gabapentin 800 mg tablet 800 mg PO QID Qty: 120 6RF acetaminophen [Tylenol Arthritis Pain] 650 mg Tablet Extended Release 1,300 mg PO PRN losartan 25 mg Tablet 25 mg PO QAM insulin glargine [Lantus Solostar U-100 Insulin] 100 unit/mL (3 mL) Insulin Pen See Rx Instructions .ROUTE .COMPLEX Rx Instructions: 30 UNITS AM AND 30 UNITS PM oxycodone 10 mg tablet 10 mg PO 5XD MDD 6 tab PRN (Reason: Pain) insulin lispro [Humalog U-100 Insulin] 100 unit/mL Solution See Rx Instructions .ROUTE .COMPLEX Rx Instructions: sliding scale tid dimenhydrinate [Dramamine] 50 mg Tablet 50 mg PO Q8H PRN (Reason: Dizziness) Centrum Silver Men 300-600-300 mcg Tablet 1 tab PO DAILY ondansetron 4 mg tablet,disintegrating 4 mg PO Q6H PRN (Reason: nausea and vomiting) Qty: 14 0RF Lasix 20 mg tablet 20 mg PO DAILY 30 Days Qty: 30 0RF Klor-Con 20 mEq packet 20 meq PO DAILY Qty: 30 0RF Discharge Orders: Discharge ED (Routine); Ordered 07/29/22 Ordered By: Ramirez Churchill Referrals: Ramirez Sheriff MD [Primary Care Provider] - Discharge Diet: Regular Discharge Activity: Increase activity as tolerated Activity Restrictions/Additional Instructions: Follow-up with medical provider as directed. Take all home medications as previously prescribed. Return to the ER or your medical provider if condition worsens. Please read and understand discharge instructions. Thank you for choosing [facility] for your healthcare needs today. Please realize this is an emergency room and that we are providing you with a medical screening exam and this may not be complete and all inclusive of all the testing and or work up that you may need to determine your ailment or severity of your illness. It is very important that you follow up as instructed or that you return to the Emergency Department should you have concerns or if your condition changes or worsens in any way. Coding Level of Care Code ED [employer] Assoc for Kelly Dudley
[2022-07-29 16:22] VITALS: PULSE 76; RESP 16; O2SAT 96
== END 2022-07-29 16:24 | disposition home or self-care (01) ==
PROVIDERS: Emergency Provider Physician Assistant; PCP Family Medicine
DX: Z45.2 Encounter for adjustment and management of vascular access device (principal); I11.0 Hypertensive heart disease with heart failure; I50.9 Heart failure, unspecified; E11.9 Type 2 diabetes mellitus without complications; I25.2 Old myocardial infarction; Z79.4 Long term (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 of insulin
CPT/HCPCS: 99282

== ENCOUNTER 2022-07-31 15:54 | Emergency (ER) | payer MEDICARE, SELFPAY ==
[2022-07-31 15:57] VITALS: BP 147/57; PULSE 68; RESP 18; TEMP 36.6; O2SAT 97
--- NOTE | 2022-07-31 17:05 | W.ED.GENADLT ---
HPI - General Adult General: Chief complaint: General Medical Stated complaint: picc line leak Time Seen by Provider: 07/31/22 17:04 History of Present Illness: 72-year-old male patient comes in today with concerns for leakage at the insertion site of his PICC line. Patient reports on Sunday he accidentally pulled on the cannula but had it evaluated in the ER after being cleaned from blood. Today when he was receiving his ceftriaxone it started leaking at the site and large amounts of fluid. Patient did not know if he was able to get any of the medication that was infused. Patient at this time receives a PICC line for vancomycin due to infection. 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 Hypernatremia Iron overload 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 Myelodysplastic syndrome Initially diagnosed in July 2002 NSTEMI (non-ST elevated myocardial infarction) Obstructive sleep apnea Peripheral neuropathy Pleural effusion Rib fracture Sepsis Septic shock Type 2 diabetes mellitus without complications Surgical History 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) History of lumbar laminectomy History of tonsillectomy History of total right hip arthroplasty (2015) S/P ORIF (open reduction internal fixation) fracture (2014) Status post creation of pericardial window (2008) Social History Smoking and tobacco status: never smoked Physical Exam Const: COMMON NORMALS: alert HENMT: COMMON NORMALS: normocephalic HEAD & SCALP: normocephalic Neck/C-Spine: COMMON NORMALS: full ROM Resp: COMMON NORMALS: normal respiratory effort Cardio: COMMON NORMALS: regular rate and regular rhythm RATE: regular rate RHYTHM: regular rhythm Extremity: LEFT UPPER EXTREMITY: Yes upper arm (Insertion of intravenous catheter to the right upper arm) Neuro: SENSORIUM/ORIENTATION: Yes alert Skin: COMMON NORMALS: turgor normal GENERAL SKIN EXAM: turgor normal Course ED course: 1729, flush intravenous line with immediate clear drainage from the insertion site. Suspect infiltration of the line versus rupture of the catheter. Patient appears in no acute distress. 1814, after chest x-ray and upper extremity x-ray it was noted that the catheter was only on midline and not a PICC line. Catheter was removed for infiltration signs. Patient's central line port was accessed per patient's request for medication dosing. Patient was discharged to home and will follow-up with infusion specialist for further treatment and evaluation. Patient reported understanding agreed to plan. Vital Signs: Vital signs: Vital Signs Temperature 97.9 F 07/31/22 15:57 Pulse Rate 68 07/31/22 15:57 Respiratory Rate 18 07/31/22 15:57 Blood Pressure 147/57 07/31/22 15:57 Pulse Oximetry 97 07/31/22 15:57 Oxygen Delivery Me thod 07/31/22 15:57 MDM - General Adult Medical Decision Making 72-year-old male patient comes in today for leakage around the insertion site of the PICC line. On exam there was some swelling at the insertion site, and flushing of the lining noted clear serous fluid from the insertion line. Differential diagnosis includes infiltration of intravenous lines, dislodgment of central line, failure of central line. Chest x-ray and left upper extremity x-ray noted a midline insertion. Removal of the line did note it was a midline and not a PICC line. Patient's port was accessed and flushed without difficulty in which patient will continue antibiotics at home and will follow-up for reestablishment of new access as needed. It was arranged through central scheduling for patient to get a call tomorrow to talk with infusion specialist. Lab Data Radiology Impressions Chest X-Ray 07/31/22 17:18 IMPRESSION: 1. There is no PICC demonstrated on the chest radiograph. Recommend clinical correlation. 2. Stable small/moderate right pleural effusion. 3. Stable compressive atelectasis in the right lower lobe. 4. Right subclavian Port-A-Cath is stable in position with the tip in the superior vena cava. 5. Incidental/nonacute findings are listed in the report. ADDENDUM: 07/31/22 175 Urgent results were discussed with YOUSIF VALDIVIA on 07/31/2022 at 5:56 PM CDT. Humerus X-Ray 07/31/22 17:39 IMPRESSION: 1. There is a left upper extremity PICC in the soft tissues of the medial left upper arm. Approximately 10 cm of the catheter is visualized. Recommend clinical correlation with length of the catheter as any additional catheter portion was not visualized on the prior chest radiograph done earlier on 07/31/2022, however it is possible that displaced catheter tubing may have been obscured by overlying soft tissues.. CT scan of the chest without contrast is recommended for further evaluation to determine possibility of breakage with embolization of the remainder of the catheter. 2. Incidental/nonacute findings are listed in the report. ADDENDUM: 07/31/22 1828 Per report, was the catheter in the left upper arm is a midline catheter, a PICC was not placed. The catheter had infiltrated and was subsequently pulled. Urgent results were discussed with YOUSIF VALDIVIA on 07/31/2022 at 6:26 PM CDT. Discharge Plan Discharge Patient Disposition: Home Clinical Impression: Intravenous infiltration Qualifiers: Encounter type: initial encounter Qualified Code(s): T80.1XXA - Vascular complications following infusion, transfusion and therapeutic injection, initial encounter Condition: Stable Prescriptions: No Action naproxen sodium [Flanax (naproxen)] 220 mg tablet 220 mg PO BID PRN (Reason: Pain) albuterol sulfate [ProAir HFA] 90 mcg/actuation HFA aerosol inhaler 2 puff inhalation Q6H PRN (Reason: shortness of breath or wheezing) Qty: 8.5 6RF pantoprazole 40 mg tablet,delayed release (DR/EC) See Rx Instructions .ROUTE .COMPLEX Qty: 90 0RF Dose Instruction: TAKE 1 TABLET BY MOUTH DAILY Rx Instructions: TAKE 1 TABLET BY MOUTH DAILY gabapentin 800 mg tablet 800 mg PO QID Qty: 120 6RF acetaminophen [Tylenol Arthritis Pain] 650 mg Tablet Extended Release 1,300 mg PO PRN losartan 25 mg Tablet 25 mg PO QAM insulin glargine [Lantus Solostar U-100 Insulin] 100 unit/mL (3 mL) Insulin Pen See Rx Instructions .ROUTE .COMPLEX Rx Instructions: 30 UNITS AM AND 30 UNITS PM oxycodone 10 mg tablet 10 mg PO 5XD MDD 6 tab PRN (Reason: Pain) insulin lispro [Humalog U-100 Insulin] 100 unit/mL Solution See Rx Instructions .ROUTE .COMPLEX Rx Instructions: sliding scale tid dimenhydrinate [Dramamine] 50 mg Tablet 50 mg PO Q8H PRN (Reason: Dizziness) Centrum Silver Men 300-600-300 mcg Tablet 1 tab PO DAILY ondansetron 4 mg tablet,disintegrating 4 mg PO Q6H PRN (Reason: nausea and vomiting) Qty: 14 0RF Lasix 20 mg tablet 20 mg PO DAILY 30 Days Qty: 30 0RF Klor-Con 20 mEq packet 20 meq PO DAILY Qty: 30 0RF Discharge Orders: Discharge ED (Routine); Ordered 07/31/22 Ordered By: Yousif Whitfield Referrals: Ramirez Sheriff MD [Primary Care Provider] - Discharge Diet: Usual diet Discharge Activity: Increase activity as tolerated Patient Instructions: Midline Catheter (DC) Activity Restrictions/Additional Instructions: Keep site clean and dry. Central scheduling will contact you in the morning for a follow-up and initiation of new line. Coding Level of Care Code ED [employer] Consult[employer] for Kelly Dudley
--- NOTE | 2022-07-31 17:18 | XRR_ITS ---
PROCEDURE INFORMATION: Exam: XR Chest Exam date and time: 07/31/2022 5:24 PM Age: 72 years old Clinical indication: Device placement; Picc; Additional info: Evaluate picc line placement TECHNIQUE: Imaging protocol: Radiologic exam of the chest. Views: 1 view. COMPARISON: CR (CHEST, ) 07/22/2022 4:36 AM FINDINGS: Tubes, catheters and devices: Right subclavian Port-A-Cath is stable in position with the tip in the superior vena cava. There is no PICC demonstrated on the chest radiograph. Lungs: Stable scarring in the right lower lobe. Stable compressive atelectasis in the right lower lobe. Pleural spaces: Stable small/moderate right pleural effusion. No pneumothorax. Heart/Mediastinum: Stable moderate enlargement of the cardiac silhouette. Mediastinal contours are unremarkable. Vasculature: Stable vascular calcifications in the aorta. Bones/joints: Unremarkable for age. XR/XR chest 1V portable [id number] IMPRESSION: 1. There is no PICC demonstrated on the chest radiograph. Recommend clinical correlation. 2. Stable small/moderate right pleural effusion. 3. Stable compressive atelectasis in the right lower lobe. 4. Right subclavian Port-A-Cath is stable in position with the tip in the superior vena cava. 5. Incidental/nonacute findings are listed in the report.
--- NOTE | 2022-07-31 17:39 | XRR_ITS ---
PROCEDURE INFORMATION: Exam: XR Left Humerus Exam date and time: 07/31/2022 5:51 PM Age: 72 years old Clinical indication: Device placement; Other: Picc line; Additional info: Picc line insert TECHNIQUE: Imaging protocol: Radiologic exam of the left humerus. Views: 2 or more views. COMPARISON: CR XR chest 1V portable [id number] 07/31/2022 5:24 PM FINDINGS: Tubes, catheters and devices: There is a left upper extremity PICC in the soft tissues of the medial left upper arm. Approximately 10 cm of the catheter is visualized. Additional catheter portion was not visualized on the prior chest radiograph done earlier on 07/31/2022, however it is possible that displaced catheter tubing may have been obscured by overlying soft tissues.. Bones/joints: Mild degenerative change at the left shoulder. No acute fracture. No dislocation. Normal bone mineralization. Lungs: The left lung is clear. Vasculature: Vascular calcifications in the aorta. Soft tissues: No soft tissue swelling. No radiopaque foreign body. XR/[place] [id number] IMPRESSION: 1. There is a left upper extremity PICC in the soft tissues of the medial left upper arm. Approximately 10 cm of the catheter is visualized. Recommend clinical correlation with length of the catheter as any additional catheter portion was not visualized on the prior chest radiograph done earlier on 07/31/2022, however it is possible that displaced catheter tubing may have been obscured by overlying soft tissues.. CT scan of the chest without contrast is recommended for further evaluation to determine possibility of breakage with embolization of the remainder of the catheter. 2. Incidental/nonacute findings are listed in the report.
--- NOTE | 2022-07-31 18:08 | PC.NURSE ---
Right chest mediport accessed using sterile technique, good blood return, flushed easily. Pt tolerated well.
== END 2022-07-31 18:30 | disposition home or self-care (01) ==
PROVIDERS: Emergency Provider Nurse Practitioner Family; PCP Family Medicine
DX: T80.1XXA Vascular complications following infusion, transfusion and therapeutic injection, initial encounter (principal); I11.0 Hypertensive heart disease with heart failure; I50.9 Heart failure, unspecified; Z85.71 Personal history of Hodgkin lymphoma; I25.2 Old myocardial infarction; E11.9 Type 2 diabetes mellitus without complications; Y82.8 Other medical devices associated with adverse incidents
CPT/HCPCS: 71045; 73060; 99283

== ENCOUNTER 2022-08-03 19:45 | Outpatient (CLI) | payer MEDICARE, SELFPAY ==
[2022-08-03 20:05] LABS: Basophils # 0.1 10^3/uL (0.0-0.1); Basophils % 1.8 %; Eosinophils # 0.1 10^3/uL (0.0-0.8); Eosinophils % 3.3 %; Hematocrit 28.2 % (42.0-52.0); Hemoglobin 8.3 g/dL (11.7-16.6); Lymphocytes # 1.4 10^3/uL (0.8-4.8); Lymphocytes % 40.2 %; Mean Corpuscular HGB Conc 29.4 g/dL (30.0-36.0); Mean Corpuscular Volume 95.3 fl (80-94); Mean Platelet Volume 11.9 fL (7.4-10.4); Monocytes # 0.3 10^3/uL (0.2-0.9); Neutrophils # 1.56 10^3/uL (1.8-7.7); Neutrophils % 46.1 %; Nucleated Red Blood Cells % 0 %; Platelet Count 118 10^3/cmm (130-400); Red Blood Count 2.96 10^6/uL (4.1-5.3); Red Cell Distribution Width 15.1 % (12.1-15.1); White Blood Count 3.4 10^3/uL (4.0-10.0)
[2022-08-03 20:18] LABS: Alanine Aminotransferase 10 U/L (0-41); Albumin Level 2.7 g/dL (3.5-5.2); Alkaline Phosphatase 175 U/L (40-130); Anion Gap 12.8 (5-19); Aspartate Amino Transferase 16 U/L (0-40); Blood Urea Nitrogen 20 mg/dL (8-23); Calcium 7.8 mg/dL (8.5-10.5); Carbon Dioxide 30 mmol/L (22-29); Chloride 103 mmol/L (98-107); Globulin 4.8 g/dL (1.3-4.6); Glomerular Filtration Rate 59.9 mL/min (90-130); Glucose 74 mg/dL (65-115); Osmolality Calculated 293 mOsm/kg (285-295); Potassium 4.8 mmol/L (3.5-5.1); Sodium 141 mmol/L (136-145); Total Bilirubin 0.3 mg/dL (0.15-1.2); Total Protein 7.5 g/dL (6.6-8.7)
== END 2022-08-03 19:46 | disposition home or self-care (01) ==
LOC: LAB 19:48
PROVIDERS: PCP Family Medicine; Visit Provider Family Medicine
DX: A41.02 Sepsis due to Methicillin resistant Staphylococcus aureus (principal)
CPT/HCPCS: 80053; 85025

== ENCOUNTER → 2022-08-22 14:12 | Outpatient (BNVA) | payer MEDICARE, SELFPAY | PROVIDERS: PCP Family Medicine; Visit Provider Family Medicine | DX: Z51.81 Encounter for therapeutic drug level monitoring (principal); I10 Essential (primary) hypertension; D46.9 Myelodysplastic syndrome, unspecified; R06.00 Dyspnea, unspecified; I42.9 Cardiomyopathy, unspecified; Z41.9 Encounter for procedure for purposes other than remedying health state, unspecified; G89.29 Other chronic pain; N17.9 Acute kidney failure, unspecified; Z94.81 Bone marrow transplant status | CPT/HCPCS: 80053; 85025 ==

== ENCOUNTER → 2022-09-11 13:38 | Outpatient (BNVA) | payer MEDICARE, SELFPAY | PROVIDERS: PCP Family Medicine; Visit Provider Internal Medicine Cardiovascular Disease | DX: I42.9 Cardiomyopathy, unspecified (principal); I11.0 Hypertensive heart disease with heart failure; I50.9 Heart failure, unspecified | CPT/HCPCS: 99204 ==

== ENCOUNTER → 2022-10-12 16:12 | Outpatient (BNVA) | payer MEDICARE, SELFPAY | PROVIDERS: PCP Family Medicine; Visit Provider Family Medicine | DX: L97.929 Non-pressure chronic ulcer of unspecified part of left lower leg with unspecified severity (principal); R06.00 Dyspnea, unspecified; Z51.81 Encounter for therapeutic drug level monitoring; M79.10 Myalgia, unspecified site; E03.9 Hypothyroidism, unspecified; R10.9 Unspecified abdominal pain; I10 Essential (primary) hypertension | CPT/HCPCS: 80053; 83735; 84443; 85025; 86141; 87070; 87075; 87077; 87184; 87205 ==

== ENCOUNTER 2022-10-16 10:46 | Outpatient (CLI) | payer MEDICARE, SELFPAY ==
--- NOTE | 2022-10-16 10:54 | XR_ITS ---
WS: [id number] XR chest 2V* [id number] REASON FOR EXAM: Dyspnea FINDINGS: Compared to the previous examination of 07/31/2022, there is an increase in the right pleural effusion . Is atelectasis again noted in the right lung adjacent to the effusion. No significant abnormality in the left hemithorax. Right chest chemotherapy port with right subclavian vein catheter remains unchanged in position. XR/XR chest 2V* [id number] IMPRESSION: Increasing right pleural effusion.
== END 2022-10-16 10:47 | disposition home or self-care (01) ==
LOC: RAD 10:50
PROVIDERS: PCP Family Medicine; Visit Provider Family Medicine
DX: R06.00 Dyspnea, unspecified (principal); J90 Pleural effusion, not elsewhere classified; E11.52 Type 2 diabetes mellitus with diabetic peripheral angiopathy with gangrene; L97.821 Non-pressure chronic ulcer of other part of left lower leg limited to breakdown of skin; L97.811 Non-pressure chronic ulcer of other part of right lower leg limited to breakdown of skin; L97.521 Non-pressure chronic ulcer of other part of left foot limited to breakdown of skin; L97.511 Non-pressure chronic ulcer of other part of right foot limited to breakdown of skin
CPT/HCPCS: 11042; 71046; 97597; 97598; 99213

== ENCOUNTER → 2022-10-18 16:06 | Outpatient (BNVA) | payer MEDICARE, SELFPAY | PROVIDERS: PCP Family Medicine; Visit Provider Thoracic Surgery (Cardiothoracic Vascular Surgery) | DX: Z51.89 Encounter for other specified aftercare (principal) | CPT/HCPCS: 29581; A6252 ==

== ENCOUNTER → 2022-10-23 08:58 | Outpatient (BNVA) | payer MEDICARE, SELFPAY | PROVIDERS: PCP Family Medicine; Visit Provider Thoracic Surgery (Cardiothoracic Vascular Surgery) | DX: E11.52 Type 2 diabetes mellitus with diabetic peripheral angiopathy with gangrene (principal); L97.822 Non-pressure chronic ulcer of other part of left lower leg with fat layer exposed; L97.521 Non-pressure chronic ulcer of other part of left foot limited to breakdown of skin; L97.811 Non-pressure chronic ulcer of other part of right lower leg limited to breakdown of skin; L97.511 Non-pressure chronic ulcer of other part of right foot limited to breakdown of skin; Z09 Encounter for follow-up examination after completed treatment for conditions other than malignant neoplasm | CPT/HCPCS: 11042; 97597; 97598 ==

== ENCOUNTER → 2022-10-30 09:12 | Outpatient (BNVA) | payer MEDICARE, SELFPAY | PROVIDERS: PCP Family Medicine; Visit Provider Thoracic Surgery (Cardiothoracic Vascular Surgery) | DX: E11.52 Type 2 diabetes mellitus with diabetic peripheral angiopathy with gangrene (principal); L97.822 Non-pressure chronic ulcer of other part of left lower leg with fat layer exposed; L97.521 Non-pressure chronic ulcer of other part of left foot limited to breakdown of skin; L97.811 Non-pressure chronic ulcer of other part of right lower leg limited to breakdown of skin | CPT/HCPCS: 11042; 97597; 97598; A6252 ==

== ENCOUNTER → 2022-11-06 10:41 | Outpatient (BNVA) | payer MEDICARE, SELFPAY | PROVIDERS: PCP Family Medicine; Visit Provider Thoracic Surgery (Cardiothoracic Vascular Surgery) | DX: E11.52 Type 2 diabetes mellitus with diabetic peripheral angiopathy with gangrene (principal); L97.822 Non-pressure chronic ulcer of other part of left lower leg with fat layer exposed; L97.521 Non-pressure chronic ulcer of other part of left foot limited to breakdown of skin; L97.811 Non-pressure chronic ulcer of other part of right lower leg limited to breakdown of skin | CPT/HCPCS: 11042; 97597; A6252 ==

== ENCOUNTER → 2022-11-13 10:27 | Outpatient (BNVA) | payer MEDICARE, SELFPAY | PROVIDERS: PCP Family Medicine; Visit Provider Thoracic Surgery (Cardiothoracic Vascular Surgery) | DX: E11.52 Type 2 diabetes mellitus with diabetic peripheral angiopathy with gangrene (principal); L97.822 Non-pressure chronic ulcer of other part of left lower leg with fat layer exposed; L97.521 Non-pressure chronic ulcer of other part of left foot limited to breakdown of skin; L97.811 Non-pressure chronic ulcer of other part of right lower leg limited to breakdown of skin; Z09 Encounter for follow-up examination after completed treatment for conditions other than malignant neoplasm | CPT/HCPCS: 11042; 97597; 97598; A6252 ==

== ENCOUNTER 2022-11-20 07:49 | Outpatient (CLI) | payer MEDICARE, SELFPAY ==
--- NOTE | 2022-11-20 08:15 | USCV_ITS ---
Inder Caldwell Age: 72 Gender: M : 1950 Exam Date: 11/20/2022 08:26 Ordering Phys: Obi Rutledge MD ([email or web address]) Technologist: CT [place] [facility] [place]: mr BP: 105 / 70 HR: 70 Rhythm: Sinus Technical Quality: Adequate MEASUREMENTS (Male / Female) Normal Values 2D ECHO LV Diastolic Diameter PLAX 5.4 cm 4.2 - 5.9 / 3.9 - 5.3 cm LV Systolic Diameter PLAX 4.5 cm LV Chamber Size 6.3 cm IVS Diastolic Thickness 0.8 cm 0.6 - 1.0 / 0.6 - 0.9 cm IVS Systolic Thickness 1.4 cm LVPW Diastolic Thickness 1.3 cm 0.6 - 1.0 / 0.6 - 0.9 cm LVPW Systolic Thickness 1.8 cm RV Chamber Size 3.9 cm LVOT Diameter 2.0 cm LV Ejection Fraction 2D Teich 27.3 % LV Ejection Fraction MOD 2C 42.3 % LV Ejection Fraction 2C AL 41.7 % LA Diameter 5.1 cm LA Width 4.4 cm LA Height 6.2 cm RA Width 4.3 cm RA Height 5.0 cm Aorta at Sinotubular Diameter 2.5 cm IVC Diameter 1.6 cm M-MODE Aortic Annulus Diameter 3.3 cm LA Ao Ratio MM 1.6 MV E Point Septal Separation 1.0 cm DOPPLER AV Peak Velocity 149.0 cm/s LVOT Peak Velocity 92.0 cm/s AV Area Cont Eq vti 2.3 cm squared AV Area Cont Eq pk 2.0 cm squared MV Area PHT 5.6 cm squared Mitral E to A Ratio 1.8 MV E' Velocity 81.5 cm/s Mitral E to MV E' Ratio 16.0 Mitral E to LV E' Lateral Ratio 14.3 Mitral E to LV E' Septal Ratio 18.3 TR Peak Velocity 279.0 cm/s TR Peak Gradient 31.1 mmHg TV Peak E Velocity 121.0 cm/s Right Atrial Pressure 3.0 mmHg Pulmonary Artery Systolic Pressu 34.1 mmHg FINDINGS Left Ventricle Normal left ventricular cavity size. Normal left ventricular wall thickness. Mildly decreased left ventricular systolic function. Left ventricular ejection fraction is estimated at 45- 50 %. Grade II/IV diastolic dysfunction, moderately elevated filling pressures. No regional wall motion abnormalities. Right Ventricle Normal right ventricular size and systolic function. Normal right ventricular systolic pressure. Right Atrium Mildly increased right atrial size. Left Atrium Mildly increased left atrial size. Mitral Valve Structurally normal mitral valve. Moderate-severe mitral valve regurgitation. Aortic Valve Structurally normal trileaflet aortic valve. Mild aortic valve regurgitation. No aortic valve stenosis. Tricuspid Valve Structurally normal tricuspid valve. Trace to mild tricuspid valve regurgitation. Pulmonic Valve Pulmonic valve not well visualized. Moderate pulmonary valve regurgitation. Pericardium Normal pericardium without effusion. Aorta Normal ascending aorta dimension. IVC The inferior vena cava appears normal. CONCLUSIONS Normal left ventricular cavity size. Normal left ventricular wall thickness. Mildly decreased left ventricular systolic function. Left ventricular ejection fraction is estimated at 45- 50 %. Grade II/IV diastolic dysfunction, moderately elevated filling pressures. Mildly increased right atrial size. Mildly increased left atrial size. Structurally normal mitral valve. Moderate-severe mitral valve regurgitation. Structurally normal trileaflet aortic valve. Mild aortic valve regurgitation. No aortic valve stenosis. Previous echocardiogram was performed 07/14/2022. Today's echo shows a worsening of the mitral regurgitation. Otherwise there has been no change. Dr. Obi Rutledge MD (Electronically Signed) Final Date: 20 November 2022 09:59 S
== END 2022-11-20 07:50 | disposition home or self-care (01) ==
PROVIDERS: PCP Family Medicine; Visit Provider Internal Medicine Cardiovascular Disease
DX: I34.0 Nonrheumatic mitral (valve) insufficiency (principal); I21.4 Non-ST elevation (NSTEMI) myocardial infarction; R07.9 Chest pain, unspecified; I10 Essential (primary) hypertension; I50.9 Heart failure, unspecified; E11.622 Type 2 diabetes mellitus with other skin ulcer; L97.821 Non-pressure chronic ulcer of other part of left lower leg limited to breakdown of skin
CPT/HCPCS: 93306; 97597; 99204; A6252

== ENCOUNTER → 2022-11-27 09:24 | Outpatient (BNVA) | payer MEDICARE, SELFPAY | PROVIDERS: PCP Family Medicine; Visit Provider Thoracic Surgery (Cardiothoracic Vascular Surgery) | DX: E11.52 Type 2 diabetes mellitus with diabetic peripheral angiopathy with gangrene (principal); L97.812 Non-pressure chronic ulcer of other part of right lower leg with fat layer exposed; L97.511 Non-pressure chronic ulcer of other part of right foot limited to breakdown of skin; L97.821 Non-pressure chronic ulcer of other part of left lower leg limited to breakdown of skin | CPT/HCPCS: 11042; 97597; A6021; A6251 ==

== ENCOUNTER 2022-11-28 12:56 | Oncology outpatient (recurring) (ONCR) | payer MEDICARE, SELFPAY ==
[2022-11-28 13:50] VITALS: BP 146/74; PULSE 63; RESP 18; TEMP 36.4; O2SAT 92
== END 2022-12-04 23:59 | disposition home or self-care (01) ==
PROVIDERS: PCP Family Medicine; Visit Provider Internal Medicine Medical Oncology
DX: Z45.2 Encounter for adjustment and management of vascular access device (principal)
CPT/HCPCS: 96523; J1642

== ENCOUNTER → 2022-12-04 10:35 | Outpatient (BNVA) | payer MEDICARE, SELFPAY | PROVIDERS: PCP Family Medicine; Visit Provider Nurse Practitioner Family | DX: E11.52 Type 2 diabetes mellitus with diabetic peripheral angiopathy with gangrene (principal); L97.511 Non-pressure chronic ulcer of other part of right foot limited to breakdown of skin; L97.821 Non-pressure chronic ulcer of other part of left lower leg limited to breakdown of skin; Z09 Encounter for follow-up examination after completed treatment for conditions other than malignant neoplasm | CPT/HCPCS: 97597; A6021; A6252 ==

== ENCOUNTER → 2022-12-11 09:38 | Outpatient (BNVA) | payer MEDICARE, SELFPAY | PROVIDERS: PCP Family Medicine; Visit Provider Thoracic Surgery (Cardiothoracic Vascular Surgery) | DX: E11.52 Type 2 diabetes mellitus with diabetic peripheral angiopathy with gangrene (principal); L97.822 Non-pressure chronic ulcer of other part of left lower leg with fat layer exposed; Z09 Encounter for follow-up examination after completed treatment for conditions other than malignant neoplasm | CPT/HCPCS: 97597; A6021; A6252 ==

== ENCOUNTER → 2022-12-18 10:08 | Outpatient (BNVA) | payer MEDICARE, SELFPAY | PROVIDERS: PCP Family Medicine; Visit Provider Thoracic Surgery (Cardiothoracic Vascular Surgery) | DX: E11.52 Type 2 diabetes mellitus with diabetic peripheral angiopathy with gangrene (principal); L97.821 Non-pressure chronic ulcer of other part of left lower leg limited to breakdown of skin | CPT/HCPCS: 97597; A6021 ==

== ENCOUNTER → 2022-12-25 09:56 | Outpatient (BNVA) | payer MEDICARE, SELFPAY | PROVIDERS: PCP Family Medicine; Visit Provider Thoracic Surgery (Cardiothoracic Vascular Surgery) | DX: E11.52 Type 2 diabetes mellitus with diabetic peripheral angiopathy with gangrene (principal); L97.821 Non-pressure chronic ulcer of other part of left lower leg limited to breakdown of skin | CPT/HCPCS: 97597; A6021 ==

== ENCOUNTER → 2022-12-26 13:11 | Outpatient (BNVA) | payer MEDICARE, SELFPAY | PROVIDERS: PCP Family Medicine; Visit Provider Nurse Practitioner Family | DX: E11.52 Type 2 diabetes mellitus with diabetic peripheral angiopathy with gangrene (principal); L97.821 Non-pressure chronic ulcer of other part of left lower leg limited to breakdown of skin; I10 Essential (primary) hypertension | CPT/HCPCS: 29581; 80053; 83036; 83690; 83735; 85025; 86141; A6021; A6251 ==

== ENCOUNTER → 2023-01-01 13:14 | Outpatient (BNVA) | payer MEDICARE, SELFPAY | PROVIDERS: PCP Family Medicine; Visit Provider Thoracic Surgery (Cardiothoracic Vascular Surgery) | DX: E11.52 Type 2 diabetes mellitus with diabetic peripheral angiopathy with gangrene (principal); L97.821 Non-pressure chronic ulcer of other part of left lower leg limited to breakdown of skin | CPT/HCPCS: 97597; A6021 ==

== ENCOUNTER → 2023-01-09 10:36 | Outpatient (BNVA) | payer MEDICARE, SELFPAY | PROVIDERS: PCP Family Medicine; Visit Provider Nurse Practitioner Family | DX: E11.52 Type 2 diabetes mellitus with diabetic peripheral angiopathy with gangrene (principal); L97.821 Non-pressure chronic ulcer of other part of left lower leg limited to breakdown of skin; L97.522 Non-pressure chronic ulcer of other part of left foot with fat layer exposed | CPT/HCPCS: 97597; A6021; A6251 ==

== ENCOUNTER → 2023-01-15 11:54 | Outpatient (BNVA) | payer MEDICARE, SELFPAY | PROVIDERS: PCP Family Medicine; Visit Provider Internal Medicine Cardiovascular Disease | DX: R25.1 Tremor, unspecified (principal); I13.0 Hypertensive heart and chronic kidney disease with heart failure and stage 1 through stage 4 chronic kidney disease, or unspecified chronic kidney disease; E11.22 Type 2 diabetes mellitus with diabetic chronic kidney disease; N18.9 Chronic kidney disease, unspecified; I50.9 Heart failure, unspecified; N17.9 Acute kidney failure, unspecified; Z79.4 Long term (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 of insulin; E11.40 Type 2 diabetes mellitus with diabetic neuropathy, unspecified; I42.9 Cardiomyopathy, unspecified; R06.00 Dyspnea, unspecified; D46.9 Myelodysplastic syndrome, unspecified; E11.52 Type 2 diabetes mellitus with diabetic peripheral angiopathy with gangrene; L97.522 Non-pressure chronic ulcer of other part of left foot with fat layer exposed; L97.921 Non-pressure chronic ulcer of unspecified part of left lower leg limited to breakdown of skin | CPT/HCPCS: 11042; 97597; 99214; A6251 ==

== ENCOUNTER → 2023-01-22 15:11 | Outpatient (BNVA) | payer MEDICARE, SELFPAY | PROVIDERS: PCP Family Medicine; Visit Provider Nurse Practitioner Family | DX: E11.52 Type 2 diabetes mellitus with diabetic peripheral angiopathy with gangrene (principal); L97.522 Non-pressure chronic ulcer of other part of left foot with fat layer exposed; L97.821 Non-pressure chronic ulcer of other part of left lower leg limited to breakdown of skin | CPT/HCPCS: 11042; 97597; A6210 ==

== ENCOUNTER 2023-01-29 16:40 | Outpatient (CLI) | payer MEDICARE, SELFPAY ==
--- NOTE | 2023-01-29 16:42 | XR_ITS ---
WS: [id number] Left foot, 3 views, 01/29/2023 Clinical Data: DFU left great toe/non healing ulcer/ rule out osteomyelitis Comparison: None. Findings: No fractures or dislocations are seen. There is a soft tissue ulceration at the tip of the distal pha lanx of the left great toe. The left foot and ankle are surrounded with an external wrap. No bone kaylen truction or erosion is noted. The joint spaces and soft tissues are normal. There is flexion deformity of the left second through fifth toes. There is a plantar spur and an Achi lles spur. Impression: 1. Soft tissue ulceration of tip of the left great toe. 2. Negative for osteomyelitis.
== END 2023-01-29 16:41 | disposition home or self-care (01) ==
PROVIDERS: PCP Family Medicine; Visit Provider Thoracic Surgery (Cardiothoracic Vascular Surgery)
DX: E11.621 Type 2 diabetes mellitus with foot ulcer (principal); L97.509 Non-pressure chronic ulcer of other part of unspecified foot with unspecified severity
CPT/HCPCS: 11042; 73630; 97597; A6252

== ENCOUNTER 2023-02-06 11:00 | Oncology outpatient (recurring) (ONCR) | payer MEDICARE, SELFPAY ==
[2023-02-06 12:08] LABS: Basophils # 0.1 10^3/uL (0.0-0.1); Basophils % 1.7 %; Eosinophils # 0.3 10^3/uL (0.0-0.8); Erythrocyte Sedimentation Rate 31 mm/hr (0-10); Hematocrit 34.5 % (37-53); Lymphocytes # 1.2 10^3/uL (0.8-4.8); Lymphocytes % 28.4 %; Mean Corpuscular HGB Conc 28.1 g/dL (30-55); Mean Corpuscular Hemoglobin 25.5 pg (27-33); Mean Corpuscular Volume 90.8 fl (82-101); Mean Platelet Volume 11.1 fL (7.4-10.4); Monocytes # 0.4 10^3/uL (0.2-0.9); Monocytes % 9.3 %; Neutrophils # 2.28 10^3/uL (1.8-7.7); Neutrophils % 54.4 %; Nucleated Red Blood Cells % 0 %; Platelet Count 175 10^3/cmm (157-399); Red Cell Distribution Width 18.5 % (12.1-15.1); White Blood Count 4.19 10^3/uL (3.29-11.43)
[2023-02-06 12:46] LABS: Alanine Aminotransferase 8 U/L (0-41); Albumin Level 2.9 g/dL (3.5-5.2); Alkaline Phosphatase 255 U/L (40-130); Anion Gap 11.6 (5-19); Aspartate Amino Transferase 11 U/L (0-40); Blood Urea Nitrogen 35 mg/dL (8-23); C Reactive Protein 53.9 mg/L (0.0-4.9); Calcium 8.2 mg/dL (8.5-10.5); Carbon Dioxide 28 mmol/L (22-29); Chloride 109 mmol/L (98-107); Ferritin 588 ng/mL (30-400); Globulin 4.6 g/dL (1.3-4.6); Glomerular Filtration Rate 59.9 mL/min (90-130); Glucose 112 mg/dL (65-115); Iron 21 ug/dL (59-158); Lactate Dehydrogenase 193 U/L (135-225); Osmolality Calculated 305 mOsm/kg (285-295); Percent Saturation 14.8 % (20-50); Potassium 5.6 mmol/L (3.5-5.1); Sodium 143 mmol/L (136-145); Thyroid Stimulating Hormone 4.78 uIU/mL (0.27-4.20); Total Bilirubin 0.4 mg/dL (0.15-1.2); Total Iron Binding Capacity 141 mcg/dl; Total Protein 7.5 g/dL (6.6-8.7); Unsaturated Iron Binding 120 ug/dL (112-347); Vitamin B12 458 pg/mL (232-1245)
[2023-02-07 10:39] LABS: KAPPA LIGHT CHAIN, FREE, SERUM 123.1 mg/L (3.3-19.4); KAPPA/LAMBDA LIGHT CHAINS FREE 1.17 (0.26-1.65)
[2023-02-07 12:28] LABS: PROTEIN, TOTAL 7.1 g/dL (6.1-8.1)
[2023-02-09 15:55] LABS: ABNORMAL PROTEIN BAND 1 0.2 g/dL (NONE DETECTED); ALBUMIN 2.8 g/dL (3.8-4.8); ALPHA 1 GLOBULIN 0.5 g/dL (0.2-0.3); ALPHA 2 GLOBULIN 0.8 g/dL (0.5-0.9); BETA 1 GLOBULIN 0.4 g/dL (0.4-0.6); BETA 2 GLOBULIN 0.4 g/dL (0.2-0.5); GAMMA GLOBULIN 2.3 g/dL (0.8-1.7)
== END 2023-03-06 23:59 | disposition home or self-care (01) ==
PROVIDERS: PCP Family Medicine; Visit Provider Internal Medicine Medical Oncology
DX: Z45.2 Encounter for adjustment and management of vascular access device (principal); R31.9 Hematuria, unspecified; R10.9 Unspecified abdominal pain; C81.92 Hodgkin lymphoma, unspecified, intrathoracic lymph nodes; R53.81 Other malaise; J91.0 Malignant pleural effusion; E11.52 Type 2 diabetes mellitus with diabetic peripheral angiopathy with gangrene; E11.621 Type 2 diabetes mellitus with foot ulcer; L97.811 Non-pressure chronic ulcer of other part of right lower leg limited to breakdown of skin; L97.522 Non-pressure chronic ulcer of other part of left foot with fat layer exposed; L97.822 Non-pressure chronic ulcer of other part of left lower leg with fat layer exposed
CPT/HCPCS: 11042; 29581; 36415; 36591; 80053; 82607; 82728; 83010; 83036; 83540; 83550; 83615; 83690; 83735; 83883; 84155; 84165; 84443; 85025; 85651; 86140; 86141; 97597; 97598; 99214; A6021; A6251; A6253; J1642

== ENCOUNTER 2023-02-10 11:49 | Inpatient (IN) | payer MEDICARE, SELFPAY ==
[2023-02-10] VITALS (12 sets, daily range): BP systolic 89–159; BP diastolic 66–81; PULSE 64–72; RESP 13–25; TEMP 36.6–37; O2SAT 87–97
--- NOTE | 2023-02-10 12:07 | XRR_ITS ---
PROCEDURE INFORMATION: Exam: XR Chest Exam date and time: 02/10/2023 12:14 PM Age: 72 years old Clinical indication: Patient HX: Cough; SOB; Weakness; HX leukemia/lymphoma TECHNIQUE: Imaging protocol: Radiologic exam of the chest. Views: 1 view. Total images: 46 COMPARISON: CR XR chest 2V* [id number] 10/16/2022 11:39 AM FINDINGS: Tubes, catheters and devices: A right infusion port is present. Lungs: Interval worsening of right pleuroparenchymal disease. Nonspecific mild left lung base opacity favors atelectasis or pneumonia. Pleural spaces: No pneumothorax. There is blunting of the left costophrenic angle, likely indicating a small pleural effusion. Heart/Mediastinum: Heart is enlarged but stable when compared to the prior exam. Bones/joints: Diffuse osteopenia noted. Osseous structures are unchanged from the prior exam. XR/XR chest 1V portable [id number] IMPRESSION: 1. Heart is enlarged but stable when compared to the prior exam. 2. Interval worsening of right pleuroparenchymal disease. 3. Nonspecific mild left lung base opacity favors atelectasis or pneumonia. 4. There is blunting of the left costophrenic angle, likely indicating a small pleural effusion.
--- NOTE | 2023-02-10 12:09 | ECG_ITS ---
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 Measurements Intervals [place] Rate: 66 P: 10 [place]: 235 QRS: -61 QRSD: 126 T: 58 QT: 422 QTc: 443 Interpretive Statements SINUS RHYTHM WITH FIRST DEGREE AV BLOCK LEFT AXIS DEVIATION [QRS AXIS < -30] POSSIBLE ANTERIOR MYOCARDIAL INFARCTION , PROBABLY OLD [30 ms Q WAVE IN V3/V4, OR R < 0.2 mV IN V4] Compared to ECG 07/14/2022 09:50:21 First degree AV block now present Left-axis deviation now present Myocardial infarct finding now present Incomplete right bundle-branch block no longer present Left anterior fascicular block no longer present T-wave abnormality no longer present Electronically Signed On 02-11-2023 22:54:29 CDT by Myke Tavares M.D. [id number]
--- NOTE | 2023-02-10 12:27 | ED_ITS ---
HPI - Weakness General: Chief complaint: Weakness Stated complaint: weakness Time Seen by Provider: 02/10/23 11:54 History of Present Illness: Patient presents to the ER for complaints of generalized edema all the way up to his abdomen and his groin. And also weakness. Over the last week or 2 patient has had his Lasix increased from 40-80 and has had another pill placed in additi on to his Lasix for the last 3 to 4 days. Neither 1 of these seem to help any. Patient says he is gained 22 pounds of fluid over the last 3 days. Patient has a swollen abdomen and is scrotum is swollen as well. Patient has wraps on his bilateral lower extremities from wound care secondary to the swelling. Patient has a history of CHF and is normally on 40 mg Lasix daily. Patient sleeps with 2 L of oxygen at night and on 3 pillows. If he lies flat his breathing gets worse. 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 History of pericarditis 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 Hypernatremia Iron overload 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 Myelodysplastic syndrome Initially diagnosed in July 2002 NSTEMI (non-ST elevated myocardial infarction) Obstructive sleep apnea Peripheral neuropathy Pleural effusion Rib fracture Sepsis Septic shock Type 2 diabetes mellitus without complications Surgical History (Updated 02/06/23 @ 12:53 by Milton Bal MD) History of cholecystectomy History of lumbar laminectomy History of tonsillectomy History of total right hip arthroplasty (2015) S/P ORIF (open reduction internal fixation) fracture (2014) Status post creation of pericardial window (2008) Social History Smoking and tobacco status: never smoked Physical Exam Const: COMMON NORMALS: no acute distress, average body habitus, patient oriented x3, no limitations, healthy appearing, alert and well nourished HENMT: COMMON NORMALS: normocephalic, atraumatic, hearing grossly normal bilaterally, external ears normal, Normal external nose present and moist oral mucous membranes HEAD & SCALP: normocephalic and atraumatic NOSE: Normal external nose present EXTERNAL EAR: Yes external ears normal Eye: COMMON NORMALS: Equal, round and reactive pupils present, EOMs intact bi laterally, conjunctivae normal and no scleral icterus CONJUNCTIVA: Yes co njunctivae normal PUPIL: Yes Equal, round and reactive pupils present Neck/C-Spine: COMMON NORMALS: full ROM, no lymphadenopathy, supple, no meningeal signs, no JVD and Thyroid normal THYROID: Thyroid normal Chest: COMMONS NORMALS: normal inspection of the chest and normal palpation of entire chest wall Resp: COMMON NORMALS: normal respiratory effort, No retractions and No use of accessory muscles; negative for clear to auscultation bilaterally (Decreased breath sounds bilaterally possible Rales bilateral lower lobes) AUSCULTATION: not clear to auscultation bilaterally (Decreased breath sounds bilaterally possible Rales bilateral lower lobes) Cardio: COMMON NORMALS: no JVD, regular rate, regular rhythm, S1 normal heart sound present, S2 normal heart sound present, No gallops present (Cardio), No clicks present (Cardio), No murmurs present (Cardio) and No rub (Cardio) RATE: regular rate RHYTHM: regular rhythm HEART SOUNDS: S1 normal heart sound present and S2 normal heart sound present GI: COMMON NORMALS: Normal to inspection, nondistended, normoactive bowel sounds present, Soft to palpation, No hepatosplenomegaly present and no masses; negative for non-tender (Diffusely tender and protuberant) PALPATION: Yes Soft to palpation and Yes No hepatosplenomegaly present : OTHER: Scrotum moderately swollen. Neuro: COMMON NORMALS: patient oriented x3 SENSORIUM/ORIENTATION: Yes alert MENINGEAL SIGNS: Yes no meningeal signs Course Vital Signs: Vital signs: Vital Signs Temperature 97.9 F 02/10/23 11:57 Pulse Rate 65 02/10/23 13:39 Respiratory Rate 21 H 02/10/23 13:39 Blood Pressure 153/73 02/10/23 13:39 Pulse Oximetry 97 02/10/23 13:39 Oxygen Delivery Me thod Room Air 02/10/23 11:57 MDM - Weakness Medical Decision Making Patient presents to the ER with complaints of worsening shortness of breath and swelling. Patient has scrotal swelling. Patient has a history of CHF and his PCP has been addressing this with adjusting his Lasix dose but this has not helped. Patient had lab work that obtained his BNP was elevated at approximately 17,000 chest x-ray showed nonspecific opacities and parenchymal disease, chest abdomen and pelvis CT with contrast showed possible patchy upper lobe infiltrate may be infectious or inflammatory cardiomegaly with bilateral pleural effusions and diffuse anasarca in the chest and abdomen. Dr. Ochoa was consulted who agreed for further inpatient treatment. Patient will be admitted to [facility]. Patient be given a additional 80 mg of Lasix total and have a Bledsoe catheter inserted in the ER. Differential Diagnosis Unlikely acute myocardial infarction, anemia, hypoglycemia, hypothyroidism, rhabdomyolysis, sepsis or dehydration Medical Records I reviewed the patient's medical records. Lab Data I reviewed the patient's lab results. 02/10/23 12:23 02/10/23 12:23 Radiology Impressions Chest X-Ray 02/10/23 12:07 IMPRESSION: 1. Heart is enlarged but stable when compared to the prior exam. 2. Interval worsening of right pleuroparenchymal disease. 3. Nonspecific mild left lung base opacity favors atelectasis or pneumonia. 4. There is blunting of the left costophrenic angle, likely indicating a small pleural effusion. Chest/Abdomen/Pelvis CT 02/10/23 13:28 IMPRESSION: 1. Cardiomegaly with bilateral pleural effusions and generalized anasarca in the soft tissues likely in part secondary to volume overload. Adjacent compressive atelectasis lower lung zones more extensive on the right. 2. Patchy upper lobe infiltrate more pronounced on the right that may be infectious or inflammatory in nature. IMPRESSION: 1. No acute findings within the abdomen or pelvis. 2. Interval development of diffuse anasarca within the soft tissues and small amount of ascites presumed secondary to 3rd spacing affect including volume overload. 3. Moderate degree of retained stool throughout the large bowel. Please correlate for constipation. Laboratory Results WBC 4.52 10^3/uL (3.29-11.43) 02/10/23 12:23 RBC 3.99 10^6/uL (3.85-5.65) 02/10/23 12: Hgb 10.40 g/dL (11.27-16.99) L 02/10/23 12: Hct 37.1 % (37-53) 02/10/23 12: MCV 93.0 fl (82-101) 02/10/23 12: MCH 26.1 pg (27-33) L 02/10/23 12: MCHC 28.0 g/dL (30-55) L 02/10/23 12: RDW 18.5 % (12.1-15.1) H 02/10/23 12: Plt Count 165 10^3/cmm (157-399) 02/10/23 12: MPV 10.9 fL (7.4-10.4) H 02/10/23 12: Neut % (Auto) 66.4 % 02/10/23 12: Lymph % (Auto) 19.9 % 02/10/23 12: [place] % (Auto) 6.4 % 02/10/23 12: Eos % (Auto) 5.1 % 02/10/23 12: Baso % (Auto) 1.8 % 02/10/23: Neut # (Auto) 3.00 10^3/uL (1.8-7.7) 02/10/23 12: Lymph # (Auto) 0.9 10^3/uL (0.8-4.8) 02/10/23 12: [place] # (Auto) 0.3 10^3/uL (0.2-0.9) 02/10/23 12: Eos # (Auto) 0.2 10^3/uL (0.0-0.8) 02/10/23 12: Baso # (Auto) 0.1 10^3/uL (0.0-0.1) 02/10/23 12: Nucleated RBC % (auto) 0 % 02/10/23 12: Nucleated RBCs # 0.0 /100WBC 02/10/23 12: Sodium 140 mmol/L (136-145) 02/10/23 12: Potassium 5.4 mmol/L (3.5-5.1) H 02/10/23 12:23 Chloride 107 mmol/L (98-107) 02/10/23 12:23 Carbon Dioxide 26 mmol/L (22-29) 02/10/23 12:23 Anion Gap 12.4 (5-19) 02/10/23 12:23 BUN 32 mg/dL (8-23) H 02/10/23 12:23 Creatinine 1.3 mg/dL (0.7-1.2) H 02/10/23 12:23 GFR Calculation 54.6 mL/min (90-130) L 02/10/23 12:23 Glucose 162 mg/dL (65-115) H 02/10/23 12: Calculated Osmolality 300 mOsm/kg (285-295) H 02/10/23 12: Lactic Acid 1.0 mmol/L (0.5-2.2) 02/10/23 12: Calcium 8.4 mg/dL (8.5-10.5) L 02/10/23 12:23 Phosphorus 3.4 mg/dL (2.5-4.5) 02/10/23 12:23 Magnesium 2.3 mg/dL (1.7-2.3) 02/10/23 12:23 Total Bilirubin 0.4 mg/dL (0.15-1.2) 02/10/23 12:23 AST 12 U/L (0-40) 02/10/23 12:23 ALT 7 U/L (0-41) 02/10/23 12:23 Alkaline Phosphatase 255 U/L (40-130) H 02/10/23 12:23 Troponin T Baseline 34 ng/L (0-15) H 02/10/23 12:23 Troponin T 120 Minute 32.49 ng/L (0-15) H 02/10/23 14:19 Delta Troponin T -1.51 ABS# (0-10) L 02/10/23 14:19 NT-Pro-B Natriuret Pep 31736 pg/mL (0-125) H 02/10/23 12:23 Total Protein 7.2 g/dL (6.6-8.7) 02/10/23 12:23 Albumin 3.1 g/dL (3.5-5.2) L 02/10/23 12:23 Globulin 4.1 g/dL (1.3-4.6) 02/10/23 12:23 Procalcitonin 0.11 ng/mL (0-0.5) 02/10/23 14:19 Urine Color Yellow (Yellow) 02/10/23 13:26 Urine Appearance Clear (CLEAR) 02/10/23 13:26 Urine pH 5 (5-7) 02/10/23 13:26 Ur Specific [place] 1.015 (1.005-1.030) 02/10/23 13:26 Urine Protein 1+ (Negative) H 02/10/23 13:26 Urine Glucose (UA) Norm (Normal) 02/10/23 13:26 Urine Ketones 1+ (Negative) H 02/10/23 13:26 Urine Blood Neg (Negative) 02/10/23 13:26 Urine Nitrate Negative (Negative) 02/10/23 13:26 Urine Bilirubin 1+ (Negative) H 02/10/23 13:26 Urine Urobilinogen 4 mg/dL (Negative) H 02/10/23 13:26 Ur Leukocyte Esterase Negative (Negative) 02/10/23 13:26 Urine RBC 0-4 /hpf (0-2) H 02/10/23 13:26 Urine WBC 0-4 /hpf (0-5) H 02/10/23 13:26 Ur Squamous Epith Cells 0-4 /hpf (0-5) H 02/10/23 13:26 Amorphous Sediment Not Reportable 02/10/23 13:26 Urine Bacteria Trace /hpf (NONE) 02/10/23 13:26 All radiology interpretation(s) finalized by discharge EKG Data EKG 1: I personally reviewed and interpreted this EKG as follows: EKG interpretation date: 02/10/23 EKG interpretation time: 12:45 Prior EKG tracings: not available for review Interpretation: EKG showed ventricular rate 66 bpm, CT interval 235, QRS duration 126, QTc of 435, sinus rhythm with a first-degree AV block, left axis deviation, Q waves in V3 and V4 EKG 2: I personally reviewed and interpreted this EKG as follows: EKG interpretation date: 02/10/23 EKG interpretation time: 14:05 Prior EKG tracings: not available for review Interpretation: EKG showed ventricular rate 66 bpm, CT interval 220, QRS duration 129, QTc of 440, sinus rhythm with first-degree AV block, left axis deviation, Q waves in V3 V4 Discharge Plan Discharge Patient Disposition: Admitted As Inpatient Clinical Impression: Peripheral edema, Bilateral pleural effusion CHF (congestive heart failure) Qualifiers: Heart failure type: unspecified Heart failure chronicity: acute on chronic Qualified Code(s): I50.9 - Heart failure, unspecified Condition: Stable Coding Level of Care Code ED President [place] for Kelly Dudley
[2023-02-10 12:39] LABS: Basophils # 0.1 10^3/uL (0.0-0.1); Basophils % 1.8 %; Eosinophils # 0.2 10^3/uL (0.0-0.8); Eosinophils % 5.1 %; Hematocrit 37.1 % (37-53); Lymphocytes # 0.9 10^3/uL (0.8-4.8); Lymphocytes % 19.9 %; Mean Corpuscular Hemoglobin 26.1 pg (27-33); Mean Platelet Volume 10.9 fL (7.4-10.4); Monocytes # 0.3 10^3/uL (0.2-0.9); Monocytes % 6.4 %; Neutrophils % 66.4 %; Nucleated Red Blood Cells % 0 %; Platelet Count 165 10^3/cmm (157-399); Red Blood Count 3.99 10^6/uL (3.85-5.65); Red Cell Distribution Width 18.5 % (12.1-15.1); White Blood Count 4.52 10^3/uL (3.29-11.43)
[2023-02-10 12:55] LABS: Troponin(5th) Baseline 34 ng/L (0-15)
[2023-02-10 13:03] LABS: Alanine Aminotransferase 7 U/L (0-41); Albumin Level 3.1 g/dL (3.5-5.2); Alkaline Phosphatase 255 U/L (40-130); Anion Gap 12.4 (5-19); Aspartate Amino Transferase 12 U/L (0-40); Blood Urea Nitrogen 32 mg/dL (8-23); Calcium 8.4 mg/dL (8.5-10.5); Carbon Dioxide 26 mmol/L (22-29); Chloride 107 mmol/L (98-107); Globulin 4.1 g/dL (1.3-4.6); Glomerular Filtration Rate 54.6 mL/min (90-130); Glucose 162 mg/dL (65-115); Magnesium 2.3 mg/dL (1.7-2.3); Osmolality Calculated 300 mOsm/kg (285-295); Phosphorus 3.4 mg/dL (2.5-4.5); Potassium 5.4 mmol/L (3.5-5.1); Sodium 140 mmol/L (136-145); Total Bilirubin 0.4 mg/dL (0.15-1.2); Total Protein 7.2 g/dL (6.6-8.7)
[2023-02-10 13:09] LABS: NT Pro B Type Natriuretic Pept 17431 pg/mL (0-125)
--- NOTE | 2023-02-10 13:28 | CTR_ITS ---
PROCEDURE INFORMATION: Exam: CT Chest With Contrast; Diagnostic Exam date and time: 02/10/2023 1:54 PM Age: 72 years old Clinical indication: Other: Swelling; Shortness of breath; Additional info: Dyspnea, chf, abd distension TECHNIQUE: Imaging protocol: Diagnostic computed tomography of the chest with contrast. Radiation optimization: All CT scans at this facility use at least one of these dose optimization techniques: automated exposure control; mA and/or kV adjustment per patient size (includes targeted exams where dose is matched to clinical indication); or iterative reconstruction. Contrast material: OMNI 350; Contrast volume: 100 ml; Contrast route: INTRAVENOUS (IV); REPORTING DATA: Count of CT and Cardiac NM exams in prior 12 months: This patient has received 6 known CTs and 0 known cardiac nuclear medicine studies in the 12 months prior to the current study. COMPARISON: CT angio chest w abd pel w con 07/14/2022 12:39 AM RADIATION DOSE METRICS: Total DLP (mGy-cm): 1475.31 FINDINGS: Tubes, catheters and devices: Right-sided chest port whose tip terminates at the cavoatrial junction. Lungs: Moderate bilateral pleural effusions larger on the right with adjacent compressive atelectasis more extensive right lung base similar to previous exam. Patchy upper lobe infiltrates more extensive on the right that may be infectious in nature or inflammatory process (i.e. the eosinophilic lung disease, BOOP). Pleural spaces: See Lungs finding. Heart: Heart is enlarged. Moderate calcification of coronary arteries. No significant pericardial effusion. Lymph nodes: Unremarkable. No enlarged lymph nodes. Vasculature: Unremarkable. No aortic aneurysm. Bones/joints: Unremarkable. No acute fracture. Soft tissues: Extensive anasarca within the soft tissues developed from previous exam presumed secondary to volume overload. PROCEDURE INFORMATION: Exam: CT Abdomen And Pelvis With Contrast Exam date and time: 02/10/2023 1:54 PM Age: 72 years old Clinical indication: Other: Swelling; Shortness of breath; Additional info: Dyspnea, chf, abd distension TECHNIQUE: Imaging protocol: Computed tomography of the abdomen and pelvis with contrast. Radiation optimization: All CT scans at this facility use at least one of these dose optimization techniques: automated exposure control; mA and/or kV adjustment per patient size (includes targeted exams where dose is matched to clinical indication); or iterative reconstruction. Contrast material: OMNI 350; Contrast volume: 100 ml; Contrast route: INTRAVENOUS (IV); REPORTING DATA: Count of CT and Cardiac NM exams in prior 12 months: This patient has received 6 known CTs and 0 known cardiac nuclear medicine studies in the 12 months prior to the current study. COMPARISON: CT abdomen pelvis w con* [id number] 07/20/2022 12:13 PM RADIATION DOSE METRICS: Total DLP (mGy-cm): 1475.31 FINDINGS: Liver: Normal. No mass. Periportal edema likely secondary to volume overload. Gallbladder and bile ducts: Gallbladder has been removed. Bile ducts are not appreciably dilated. Pancreas: Unremarkable. Main pancreatic duct is not significantly dilated. Spleen: Spleen is moderately enlarged, unchanged. Adrenal glands: Normal. No mass. Kidneys and ureters: Normal. No hydronephrosis. Stomach and bowel: Moderate degree of retained stool throughout the large bowel that may reflect some degree of constipation. Appendix: No evidence of appendicitis. Intraperitoneal space: Mild amount of ascites throughout the abdomen pelvis developed from previous exam. Vasculature: Unremarkable. No abdominal aortic aneurysm. Lymph nodes: Unremarkable. No enlarged lymph nodes. Urinary bladder: Unremarkable as visualized. Reproductive: Unremarkable as visualized. Bones/joints: Accentuated kyphotic curvature upper lumbar spine with chronic compression fracture L2 extensive postsurgical changes lumbar spine, stable. Right hip replacement unchanged. No acute bony abnormalities. Soft tissues: Generalized anasarca within the soft tissues developed from previous exam. CT/CT chest abdpel w/*[id number] IMPRESSION: 1. Cardiomegaly with bilateral pleural effusions and generalized anasarca in the soft tissues likely in part secondary to volume overload. Adjacent compressive atelectasis lower lung zones more extensive on the right. 2. Patchy upper lobe infiltrate more pronounced on the right that may be infectious or inflammatory in nature. IMPRESSION: 1. No acute findings within the abdomen or pelvis. 2. Interval development of diffuse anasarca within the soft tissues and small amount of ascites presumed secondary to 3rd spacing affect including volume overload. 3. Moderate degree of retained stool throughout the large bowel. Please correlate for constipation.
[2023-02-10 13:41] LABS: Add Urine Culture? No; Add Urine Microscopic? YES; Bacteria Urine TRACE /hpf; Bilirubin Urine 1+ (Negative); Blood Urine Neg (Negative); Glucose Urine UA Norm (Normal); Ketones Urine 1+ (Negative); Leukocyte Esterase Urine Negative (Negative); Nitrate Urine Negative (Negative); Protein Urine 1+ (Negative); RBC Urine 0-4 /hpf (0-2); Specific Gravity, Urine 1.015 (1.005-1.030); Squamous Epithelial Cell Urine 0-4 /hpf (0-5); Urine Appearance Clear (CLEAR); Urine Color Yellow (Yellow); Urobilinogen Urine 4 mg/dL (Negative); WBC Urine 0-4 /hpf (0-5); pH Urine 5 (5-7)
[2023-02-10] MEDS: iohexol 350 mg/mL 500 mL Btl (per mL) IV (14:00)
--- NOTE | 2023-02-10 14:05 | ECG_ITS ---
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 Measurements Intervals [place] Rate: 66 P: 11 CT: 220 QRS: -62 QRSD: 129 T: 40 QT: 426 QTc: 449 Interpretive Statements SINUS RHYTHM WITH FIRST DEGREE AV BLOCK LEFT AXIS DEVIATION [QRS AXIS < -30] POSSIBLE ANTERIOR MYOCARDIAL INFARCTION , OF INDETERMINATE AGE [30 ms Q WAVE IN V3/V4, OR R < 0.2 mV IN V4] Compared to ECG 02/10/2023 12:45:21 No significant changes Electronically Signed On 02-11-2023 22:59:15 CDT by Myke Tavares M.D. [email or web address]
--- NOTE | 2023-02-10 14:31 | PC.PHAR ---
PTS VERIFIED PTS MEDICATIONS-PTS STATES THE PT FINISHED THE METOLAZONE 5MG DAILY FOR 3 DAYS RX FILLED 02/08/23-PTS STATES THE PT TAKES GABAPENTIN 600MG QID EXT SHOWS FILLED 01/16/23 30D/S EXT ALSO SHOWS 800MG QID FILLED 01/23/23 30D/S-PTS STATES THE PT TAKES HYDROXYZINE HCL 10MG DAILY EXT SHOWS LAST FILLED 10MG TID PRN ITCHING ON 11/10/22 10D/S-PTS STATES THE PT USES LANTUS SOLOSTAR 40 UNITS HS AND HUMALOG VIAL SS TID EXT DOESNT SHOW WHEN LAST FILLED-NOTES ARE MADE IN THE PHARMACY COMMENTS
[2023-02-10 14:44] LABS: Troponin 5 2HR 32.49 ng/L (0-15)
[2023-02-10 14:48] LABS: Troponin 5 2HR Delta -1.51 ABS# (0-10)
[2023-02-10] MEDS: ondansetron 2 mg/ML SDV 2 mL 8 MG IVP (15:24)
[2023-02-10] MEDS: FUROsemide 10 mg/mL SDV 4mL 40 MG IVP ×2 (15:27→15:35)
[2023-02-10 15:45] LABS: Procalcitonin 0.11 ng/mL (0-0.5)
--- NOTE | 2023-02-10 16:15 | P.HP_ITS ---
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 As per patient on walking 5 steps he gets out of breath. Describes difficulty in breathing. Denies any chest pain. States he has been having nausea and decreased appetite. Denies any fevers. States he recently saw Dr. Bal earlier this week who had prescribed few blood test for evaluation of malignant cells in pleural fluid to diagnose primary malignancy. Also states that he is due for a stress test which needs to be ordered from Dr. Rutledge's office. Review of Systems General: Reports: 10 or more systems reviewed and unremarkable except in HPI and below Const: Denies: fever(s), chills, body aches, change in appetite, change in weight, malaise, night sweats, diaphoresis, change in sleep pattern, daytime sleepiness or snoring Eyes: Denies: change in vision, blurry vision, photophobia, eye discomfort or eye discharge ENMT: Denies: throat pain, enlarged tonsils, hoarseness, mouth pain, oral sores, dry mouth, tinnitus, nasal congestion or post nasal drip Card: Denies: chest pain, palpitations, irregular heart rhythm, edema, swelling of feet/ankles, lightheadedness, syncope, pre-syncope, dyspnea on exertion, orthopnea, leg pain with exertion or acrocyanosis Resp: Denies: dyspnea, productive cough, non-productive cough, wheezing, stridor, pain on inspiration, change in phlegm color, hemoptysis or chest congestion GI: Denies: abdominal pain, nausea, vomiting, hematemesis, coffee ground e mesis, dysphagia, heartburn, diarrhea, constipation, bloating, GI cramping, change in bowel habits, pain on defecation, hematochezia or melena : Denies: flank pain, difficulty urinating, dysuria, urinary frequency, urinary urgency, urinary hesitancy, urinary dribbling, difficulty starting urination, change in urine stream, nocturia or hematuria Musc: Denies: neck pain, back pain, extremity pain, joint pain, joint swelling, joint redness, joint stiffness or limited range of motion Neuro: Denies: headache(s), numbness in extremities, weakness in extremities, sensory changes, lack of coordination, difficulty walking, frequent falls, dizziness, vertigo, confusion, Slurred speech present, difficulty communicating thoughts or seizure-like activity Psych: Denies: anxiety, depression, mood swings, panic attacks, hopelessness or irritability Endo: Denies: polyuria, polydipsia, tired all the time, cold intolerance, excessive sweating, flushing or heat intolerance Kristopher/Lymph: Denies: easy bruising or easy bleeding All/Imm: Denies: tongue swelling, facial swelling or acute wheezing Medications/Allergies Home Medications Medication Instructions Recorded Confirmed Last Taken Type acetaminophen 650 mg 1,300 mg PO Q12H PRN Pain 08/13/19 02/10/23 Unknown History tablet,extended release (Tylenol Arthritis Pain) insulin glargine 100 unit/mL (3 40 unit SUBCUT BEDTIME 08/13/19 02/10/23 07/13/22 History mL) subcutaneous pen (Lantus Solostar U-100 Insulin) insulin lispro 100 unit/mL See Rx Instructions .Route .COMPLEX 07/02/20 02/10/23 03/08/22 History subcutaneous solution (Humalog U-100 Insulin) naproxen sodium 220 mg tablet 440 mg PO Q12H PRN Pain 03/08/22 02/10/23 Unknown History (Aleve) dimenhydrinate 50 mg tablet 50 mg PO Q8H PRN Dizziness 03/09/22 02/10/23 Unknown History (Dramamine) ulaihrfm-wp-wrjzu 300 mcg-K 60 1 tab PO QAM 03/09/22 02/10/23 02/10/23 History mcg-lycop 600 mcg-lutein 300 mcg tablet (Centrum Silver Men) albuterol sulfate 90 mcg/actuation 2 puff inhalation Q6H PRN 03/21/22 02/10/23 Unknown Rx aerosol inhaler (ProAir HFA) shortness of breath or wheezing #8.5 grams Diabetic shoes #2 ea 10/24/22 02/10/23 Unknown Rx sucralfate 1 gram tablet (Carafate) 1 g PO Q6H #60 tabs 11/14/22 02/10/23 02/10/23 Rx ondansetron 4 mg disintegrating 4 mg PO Q6H PRN nausea and 12/04/22 02/10/23 Unknown Rx tablet vomiting #90 tabs gabapentin 600 mg tablet 600 mg PO QID #120 tabs 12/11/22 02/10/23 02/10/23 Rx SEE PHARMACY COMMENT Compression stockings - 8-15mmHg #1 ea 12/26/22 02/10/23 Unknown Rx furosemide 20 mg tablet 20 mg PO QAM 02/10/23 02/10/23 02/10/23 History hydroxyzine HCl 10 mg tablet 10 mg PO QAM 02/10/23 02/10/23 02/10/23 History SEE PHARMACY COMMENT losartan 50 mg tablet 50 mg PO QAM 02/10/23 02/10/23 02/10/23 History metolazone 5 mg tablet 5 mg PO DAILY 02/10/23 02/10/23 02/09/23 History FINISHED PER oxycodone 10 mg tablet 10 - 20 mg PO .EVERY 4-6 HOURS PRN 02/10/23 02/10/23 Unknown History Pain pantoprazole 40 mg tablet,delayed 40 mg PO QAM 02/10/23 02/10/23 02/10/23 History release potassium chloride 10 mEq 10 meq PO QAM 02/10/23 02/10/23 02/10/23 History tablet,extended release spironolactone 50 mg tablet 50 mg PO QAM 02/10/23 02/10/23 02/10/23 History tamsulosin 0.4 mg capsule 0.4 mg PO QAM 02/10/23 02/10/23 02/10/23 History Allergies Allergy/AdvReac Type Severity Reaction Status Date / Time methadone Allergy Unknown Unknown Verified 02/10/23 12:09 carisoprodol [From Soma] Allergy Unknown Verified 02/10/23 12:09 codeine Allergy Unknown Verified 02/10/23 12:09 morphine Allergy Unknown Verified 02/10/23 12:09 PFSH Acute PFSH: Medical History (Updated 02/10/23 @ 17:49 by Tejinder Lees MD) Acute cystitis CHENCHO (acute kidney injury) Altered mental status Cardiomyopathy CHF (congestive heart failure) Degenerative arthritis Degenerative joint disease of spine Essential hypertension GERD (gastroesophageal reflux disease) Gram-positive bacteremia 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 History of pericarditis 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 Hypernatremia Iron overload 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 Myelodysplastic syndrome Initially diagnosed in July 2002 NSTEMI (non-ST elevated myocardial infarction) Obstructive sleep apnea Peripheral neuropathy Pleural effusion Rib fracture Sepsis Septic shock Type 2 diabetes mellitus without complications Surgical History (Updated 02/06/23 @ 12:53 by Milton Bal MD) History of cholecystectomy History of lumbar laminectomy History of tonsillectomy History of total right hip arthroplasty (2015) S/P ORIF (open reduction internal fixation) fracture (2014) Status post creation of pericardial window (2008) Social History Smoking and tobacco status: never smoked Vitals/I&O/Wt Last Vital Signs Temp 97.9 F 02/10/23 11:57 Pulse 68 02/10/23 15:30 Resp 16 02/10/23 15:30 BP 156/77 02/10/23 15:30 Pulse Ox 97 02/10/23 15:30 O2 Del Method Room Air 02/10/23 15:30 Weight last 48 hrs Weight 101.605 kg Physical Exam Narrative: General: No acute distress, AO x3, NC oxygen supplementation, chronically sick appearing, anasarca HEENT: PERRLA, pupils bilaterally equal and reactive Chest:bilateral bronchial breath sounds all over lung cristina, decreased air entry bilaterally in lower zone, fine crackles over lower lung cristina CVS: S1-S2 regular, no murmurs, no tachycardia, no gallops, no rubs Abdomen: Soft, nontender, no organomegaly, bowel sounds present, morbidly obese Neuro: No focal deficits, no facial deformity, AO x3, power 5/5 in all limbs Data 02/10/23 12:23 02/10/23 12:23 Micro: Microbiology 02/10/23 15:35 Blood Culture - Preliminary Blood SPECIMEN COLLECTED 02/10/23 15:30 Blood Culture - Preliminary Blood SPECIMEN COLLECTED A&P Assessment and plan (1) CHF (congestive heart failure): Recent echocardiogram showed an EF of 45 to 50%, grade 2 diastolic dysfunction, moderate to severe MR. Recently increased oral lasix to 80 mg oral along with addition of metolazone and spironolactone 50 mg daily. proBNP elevated. Cycle troponins. Strict input output charting. Daily weights. Fluid restriction up to 1500 cc. Bledsoe catheter. IV Lasix 80 mg daily for now. Qualifiers: Heart failure chronicity: acute on chronic Heart failure type: unspecified Qualified Code(s): I50.9 - Heart failure, unspecified (2) CHENCHO (acute kidney injury): Cannot rule out in setting of congestive heart failure. Though patient is on losartan 50 mg, multiple diuretics including metolazone and spironolactone. Medical reconciliation done for nephrotoxic drugs. Hold off on losartan for now. CT abdomen pelvis negative for renal obstruction. Check urine lites, urine creatinine, urine eosinophils. (3) Hyperkalemia: Most likely in setting of acute kidney injury along with home use of spironolactone and D50 with 10 units of insulin one-time. Repeat potassium in a.m. Telemetry. (4) Anasarca: Most likely in setting of congestive heart failure along with mild hypoalbuminemia. Patient does have acute kidney injury as well. Treatment as above. No need for paracentesis for now. Continue to monitor. (5) Cardiomyopathy: (6) Moderate mitral regurgitation: (7) Type 2 diabetes, controlled, with neuropathy: Most recent A1c of 6.3. Continue with home dose of Lantus. Start on insulin sliding scale at moderate dose protocol. (8) Malignant pleural effusion: Diagnosed on pleural tap done in 07/27. Patient currently on room air. Hold off on thoracentesis for now. Being worked up as an outpatient to diagnose primary. CT scan done today does show patchy upper lobe infiltrates bilaterally right more than left, splenomegaly, normal liver and gallbladder along with pancreas, no hydronep hrosis (9) Constipation: Significant. Seen on CT abdomen pelvis. Aggressive bowel regimen with lactulose, milk of magnesia. (10) Multifocal lung consolidation: Seen on CT chest done today. Not seen on CT scan done in July 2022. Cannot rule out underlying pneumonia though patient does not give any history. Concerns for eosinophilic pneumonitis, Boop. 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 Not on any immunosuppressive therapy currently. Eosinophil levels normal on CBC today. Check sputum culture, fungitell. Wound culture recently showed MRSA, Pseudomonas, Enterococcus. Empirically for now start patient on Empirically start patient on vancomycin and meropenem. Bacterial pneumonia for now less likely. Will discontinue within next 24 to 48 hours if patient remains hemodynamically stable and afebrile. Plan Hypertension: Goal blood pressure less than 140/90 mmHg. Holding off on losartan given CHENCHO and hyperkalemia. If needed will plan to add amlodipine. CODE STATUS: Discussed in detail. Patient would want all measures done to make sure that he is alive. He is okay with chest compressions or life support if needed. Full code. Cardiac diet, fluid restriction Protonix for PUD prophylaxis Heparin 5000 every 12 hourly for DVT prophylaxis Attestations Medical Necessity Statement*: Admission for more than 2 midnights for management of generalized anasarca in s etting of congestive heart failure, acute kidney injury and hyperkalemia Diagnoses CHF (congestive heart failure) I50.9 Heart failure chronicity: acute on chronic Heart failure type: unspecified CHENCHO (acute kidney injury) N17.9 Hyperkalemia E87.5 Anasarca R60.1 Cardiomyopathy I42.9 Moderate mitral regurgitation I34.0 Type 2 diabetes, controlled, with neuropathy E11.40 Malignant pleural effusion J91.0 Constipation K59.00 Multifocal lung consolidation J18.1
--- NOTE | 2023-02-10 16:32 | PC.NURSE ---
ATTEMPTED PLACEMENT OF TAPIA CATHETER. UNABLE TO OBTAIN ACCESS DUE TO EDEMA. ED PHYSICIAN NOTIFIED AND GAVE INSTRUCTION TO HOLD TAPIA INSERTION.
[2023-02-10] MEDS: insulin regular-human 10 UNIT in SYRINGE 1 EACH IVP (17:09)
[2023-02-10] MEDS: magnesium hydroxide 30 mL UDC PO (17:17)
[2023-02-10] MEDS: lactulose oral liq 20 gm/30 mL UDC 10 GM PO ×2 (17:17→22:06)
[2023-02-10] MEDS: sucralfate 1 gm Tablet PO ×2 (17:18→22:06)
[2023-02-10] MEDS: heparin 5,000 unit/mL INJ 1 mL 5000 UNIT SUBCUT (17:19)
[2023-02-10] MEDS: oxyCODONE 5 mg IR Tab/Cap 10 MG PO (17:19)
[2023-02-10] MEDS: dextrose 50% syringe 50 mL IVP (17:20)
[2023-02-10 17:39] LABS: Eosinophil Urine No Eosinophils Seen; Urine Eosinophil Count 0 (0-0)
[2023-02-10 17:41] LABS: Potassium, Radom Urine 36 mmol/L; Urine Creatinine 92 mg/dL (39-259); Urine Random Chloride 82 mmol/L; Urine Random Sodium 86 mmol/L
[2023-02-10 17:50] LABS: Glucose Point of Care 238 mg/dL (70-110)
--- NOTE | 2023-02-10 18:09 | ECG_ITS ---
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 Measurements Intervals Perry Rate: 66 P: -3 CO: 188 QRS: -55 QRSD: 120 T: 17 QT: 394 QTc: 414 Interpretive Statements SINUS RHYTHM WITH OCCASIONAL SUPRAVENTRICULAR PREMATURE COMPLEXES LEFT AXIS DEVIATION [QRS AXIS < -30] POSSIBLE ANTERIOR MYOCARDIAL INFARCTION , OF INDETERMINATE AGE [30 ms Q WAVE IN V3/V4, OR R < 0.2 mV IN V4] Compared to ECG 02/10/2023 14:05:45 First degree AV block no longer present Myocardial infarct finding still present Electronically Signed On 02-11-2023 22:58:52 CDT by Myke Tavares M.D. [email or web address] at stone [id number]
[2023-02-10 18:58] LABS: Troponin 5 6HR 35.71 ng/L (0-15); Troponin 5 6HR Delta 1.71 ng/L (0-12)
[2023-02-10] MEDS: meropenem 1,000 MG in sodium chloride 0.9% (plus) 50 ML 100 MG IV (22:02)
[2023-02-10] MEDS: vancomycin 1,500 MG/300 ML PIGGYBACK 200 MG IV (22:04)
[2023-02-10] MEDS: gabapentin 300 mg Capsule 600 MG PO (22:06)
[2023-02-10] MEDS: insulin glargine 100 units/1 mL 40 UNIT SUBCUT (22:07)
[2023-02-11] VITALS (31 sets, daily range): BP systolic 102–158; BP diastolic 59–131; PULSE 58–104; RESP 3–24; TEMP 36.6–37.3; O2SAT 76–100; BMI 34.0
[2023-02-11] MEDS: lanolin oint 7 gm 1 APPLIC TOPICAL ×2 (00:19→21:45)
[2023-02-11] MEDS: oxyCODONE 5 mg IR Tab/Cap 10 MG PO ×3 (00:19→14:11)
[2023-02-11 00:39] LABS: Adenovirus Not Detected (NOT DETECT); Chlamydia Pneumoniae Not Detected (NOT DETECT); Coronavirus 229E,HKU1,NL63,OC4 Not Detected (NOT DETECT); Human Metapneumovirus Not Detected (NOT DETECT); Human Rhinovirus/Enterovirus Not Detected (NOT DETECT); Influenza A Not Detected (NOT DETECT); Influenza A H1 Not Detected (NOT DETECT); Influenza A H1-2009 Not Detected (NOT DETECT); Influenza A H3 Not Detected (NOT DETECT); Influenza B Not Detected (NOT DETECT); Mycoplasma Pneumoniae Not Detected (NOT DETECT); Parainfluenza Virus Type 1 Not Detected (NOT DETECT); Parainfluenza Virus Type 2 Not Detected (NOT DETECT); Parainfluenza Virus Type 3 Not Detected (NOT DETECT); Parainfluenza Virus Type 4 Not Detected (NOT DETECT); Respiratory Syncytial Virus A Not Detected (NOT DETECT); Respiratory Syncytial Virus B Not Detected (NOT DETECT); SARS-COV-2 Not Detected (NOT DETECT)
[2023-02-11] MEDS: sucralfate 1 gm Tablet PO ×4 (04:52→21:45)
[2023-02-11] MEDS: heparin 5,000 unit/mL INJ 1 mL 5000 UNIT SUBCUT ×2 (04:52→17:04)
[2023-02-11 05:26] LABS: Basophils # 0.1 10^3/uL (0.0-0.1); Basophils % 1.4 %; Eosinophils # 0.3 10^3/uL (0.0-0.8); Eosinophils % 6.8 %; Hematocrit 34.2 % (37-53); Lymphocytes % 22.3 %; Mean Corpuscular HGB Conc 28.1 g/dL (30-55); Mean Corpuscular Volume 92.7 fl (82-101); Mean Platelet Volume 10.8 fL (7.4-10.4); Monocytes # 0.3 10^3/uL (0.2-0.9); Monocytes % 7.7 %; Neutrophils % 61.6 %; Nucleated Red Blood Cells % 0 %; Platelet Count 146 10^3/cmm (157-399); Red Blood Count 3.69 10^6/uL (3.85-5.65); Red Cell Distribution Width 18.5 % (12.1-15.1); White Blood Count 4.39 10^3/uL (3.29-11.43)
[2023-02-11] MEDS: meropenem 1,000 MG in sodium chloride 0.9% (plus) 50 ML 100 MG IV (05:46)
[2023-02-11 05:48] LABS: Alanine Aminotransferase 8 U/L (0-41); Albumin Level 2.6 g/dL (3.5-5.2); Alkaline Phosphatase 223 U/L (40-130); Anion Gap 11.1 (5-19); Aspartate Amino Transferase 12 U/L (0-40); Blood Urea Nitrogen 27 mg/dL (8-23); Carbon Dioxide 29 mmol/L (22-29); Chloride 108 mmol/L (98-107); Globulin 4.4 g/dL (1.3-4.6); Glomerular Filtration Rate 66.2 mL/min (90-130); Glucose 66 mg/dL (65-115); Magnesium 2.3 mg/dL (1.7-2.3); Osmolality Calculated 299 mOsm/kg (285-295); Phosphorus 3.4 mg/dL (2.5-4.5); Potassium 5.1 mmol/L (3.5-5.1); Sodium 143 mmol/L (136-145); Total Bilirubin 0.3 mg/dL (0.15-1.2)
[2023-02-11 06:05] LABS: Folate Level 8.3 ng/mL (4.5-32.2)
--- OUTSIDE RECORDS SUMMARY | 2023-02-11 06:33 | XMS_ITS | Patient Health Record ---
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 Name Role Phone Ramirez Sheriff MD Primary Care Provider Jesusita Flores Unavailable [phone] REASON FOR REFERRAL No Information MEDICATIONS Medication SIG (Take, Route, Frequency, Duration) Notes Start Date End Date Status oxyCODONE HCl 10 MG 1 tablet as needed Orally every 6 hrs Active Amitriptyline HCl 75 MG 1 tab(s) po q day Oral for 30 Amitriptyline HCl 75mg Tablet 1 tab(s) po q day 10/16/2013 Not-Taking Multivitamin Adults - as directed Orally Active Naproxen Sodium 550 MG Take 1 tablet(s) by mouth q12h prn for pain Oral for 30 Naproxen Sodium 550mg Tablet Take 1 tablet(s) by mouth q12h prn for pain 10/16/2013 Not-Taking MiraLax 17 gram/dose 17 gm(s) in 8oz water BID Oral for 30 *please review for potential _update for e-prescription and drug interaction check* Miralax Powder for Oral Solution 17 gm(s) in 8oz water BID 09/18/2013 Not-Taking HumaLOG 100 unit/mL per sliding scale Subcutaneous for 30 Humalog 100units/1ml Injection per sliding scale 07/17/2013 Active Lantus Active Gabapentin 800 MG Take 1 tablet(s) by mouth qid Oral for 30 Gabapentin 800mg Tablet Take 1 tablet(s) by mouth qid #368 ([place]) tablet(s) 07/30/2013 Active IMMUNIZATIONS Vaccine Route Administration Date Status Comme nts Flu vaccine no Preserv 3 and > IM Intramuscular 02/07/2010 Administered Flu vaccine no Preserv 3 and > Unknown 02/27/2012 Administered Flu vaccine no Preserv 3 and > IM Intramuscular 02/07/2013 Administered Pneumococcal polysaccharide PPV23 IM Intramuscular 02/07/2010 Administered SOCIAL HISTORY Tobacco Use: Social History Observation Description Date Details (start date - stop date) Never Smoker NA - NA Sex Assigned At : Social History Observation Description Sex Assigned At Unknown Tobacco Use/Smoking Question Answer Notes Are you a nonsmoker Alcohol Screen (Audit-C) Question Answer Notes Did you have a drink containing alcohol in the p ast year? No Points 0 Interpretation Negative PHQ-9 Question Answer Notes Little interest or pleasure in doing things Regi ral days Feeling down, depressed, or hopeless Several day s Trouble falling or staying asleep, or sleeping t oo much Nearly every day Feeling tired or having little energy More than half the days Poor appetite or overeating Not at all Feeling bad about yourself, or that you are a failure, or have let yourself or your family down Not at all Trouble concentrating on thi ngs, such as reading the newspaper or watching television Nearly every day Moving or speaking so slowly that other people could have noticed. Or the opposite ? being so fidgety or restless that you have been moving around a lot more than usual Not at all Thoughts that you would be b tyrone off , or of hurting yourself in some way Not at all Total Score 10 Interpretation Moderate Depression PROBLEMS Problem Type ICD Code Onset Dates Problem Status W/U Status Risk SNOMED Code Notes Problem Myelodysplastic syndrome, unspecified (238.75) 2015 Active confirmed Myelodysplastic syndrome (511692207) [facility] Problem Other hemochromatosis (275.03) 2011 Active confirmed Hemochromatosis (911416983) [facility] Problem Iron deficiency anemia, unspecified (280.9) 2013 Active confirmed Iron deficiency anemia (74460896) [facility] Problem Other lymphoma, 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 confirmed [facility]- Problem Peripheral neuropathy (356.9) 2015 Active confirmed Peripheral neuro aj (705989782) [facility] Problem Chronic low back pain (724.2) 2014 Active confirmed Chronic low back pain (266119899) [facility] Problem Lumbar radiculopathy (722.10) 2010 Active confirmed Lumbar radiculop athy (697103944) [facility] Problem Hypocalcemia (275.41) 2004 Problem resolved confirmed Hypocalcemia (4627378) [facility] Problem Posttraumatic stress disorder (309.81) 2017 Problem resolved confirmed Posttraumatic stress disorder (86548307) [facility] Problem Obstructive sleep apnea (adult) (pediatric) (327.23) 2016 Problem resolved confirmed Obstructive sleep apnea syndrome (89736994) [facility] Problem Trigeminal neuralgia (350.1) 2011 Problem resolved confirmed Trigeminal neuralgia (49720360) [facility] Problem Allergic rhinitis due to pollen (477.0) 2004 Problem resolved confirmed Allergic rhinitis du e to pollen (35004220) [facility] Problem Orthostatic hypotension (458.0) 2014 Problem resolved confirmed Orthostatic hypotension (25702156) [facility] Problem Fever, unspecified (780.60) 2012 Problem resolved confirmed Fever (107435763) [facility] Problem Memory loss (780.93) 2010 Problem resolved confirmed Memory loss (11701498) [facility] Problem Headache (784.0) 2013 Problem resolved confirmed Headache (84546293) [facility] Problem Shortness of breath (786.05) 2018 Problem resolved confirmed Shortness of breath (063351284) [facility] Problem Cough (786.2) 2013 Problem resolved confirmed Cough (94296283) [facility] Problem Heartburn (787.1) 2010 Problem resolved confirmed Heartburn (88414063) [facility] Problem Diarrhea (787.91) 2007 Problem resolved confirmed Diarrhea (18080126) [facility] Problem Dysuria (788.1) 2014 Problem resolved confirmed Dysuria (41564440) [facility] Problem Splenomegaly (789.2) 2012 Problem resolved confirmed Splenomegaly (15082566) [facility] Problem Proteinuria (791.0) 2010 Problem resolved confirmed Proteinuria (08822816) [facility] Problem Chronic cough (786.2) 2004 Problem resolved confirmed Chronic cough (38216551) [facility] Problem Anxiety, generalized (300.02) 2010 Problem resolved confirmed Generalized anxiety disorder (20300281) [facility] Problem Restless legs syndrome (RLS) (333.94) 2009 Problem resolved confirmed Restless legs (66600070) [facility] Problem Sleep apnea (780.57) 2006 Problem resolved confirmed Sleep apnea (18574256) [facility] Problem Testosterone deficiency (257.2) 2010 Problem resolved confirmed Androgen deficiency (26950363) [facility] Problem Anemia, unspecified (285.9) 2004 Problem resolved confirmed Anemia (313557358) [facility] Problem Rash (782.1) 2006 Problem resolved confirmed Rash (296420819) [facility] Problem Dizziness (780.4) 2009 Problem resolved confirmed Dizziness (207595359) [facility] Problem Low back pain (724.2) 2003 Problem resolved confirmed Low back pain (167881103) [facility] Problem Fatigue (780.79) 2013 Problem resolved confirmed Fatigue (10015338) [facility] Problem Insomnia (780.52) 2015 Problem resolved confirmed Insomnia (606639436) [facility] Problem Gout (274.9) 2009 Problem resolved confirmed Gout (47959989) [facility] Problem Ear pain (388.70) 2008 Problem resolved confirmed Ear pain (21880812) [facility] Problem Excessive belching (787.3) 2012 Problem resolved confirmed Excessive belching (205885943) [facility] Problem Excessive bruising (782.7) 2017 Problem resolved confirmed Spontaneous ecchymosis (388042703) [facility] Problem Headache (307.81) 2007 Problem resolved confirmed Headache (99576762) [facility] Problem NIDDM (250.00) 2009 Active confirmed Type II Diabetes Mellitus without complication (014636128) [facility] Problem Osteoporosis, other (733.09) 2016 Problem resolved confirmed Osteoporosis (70773460) [facility] Problem Shortness of breath (786.09) 2013 Problem resolved confirmed Shortness of breath (519004165) [facility] Problem Staphylococcal infection (482.40) 2017 Problem resolved confirmed Staphylococcal infection (75936218) [facility] Problem Swelling in feet and ankles (782.3) 2009 Problem resolved confirmed Edema (953286207) [facility] Problem Multiple thoracic compression fractures (805.2) 2014 Problem resolved confirmed Closed fracture of thoracic vertebra without spinal cord injury (64535765) [facility] Problem Necrotizing gingivitis (101) 2004 Problem resolved confirmed Vincent's angina - pharyngitis (697075491) [facility] Problem Night terrors (307.46) 2010 Problem resolved confirmed Night terrors (39815617) [facility] Problem Acute pericarditis, unspecified (420.90) 2007 Problem resolved confirmed Acute pericarditis (56256526) [facility] Problem Acute sinusitis (461.9) 2013 Problem resolved confirmed Acute sinusitis (15758860) [facility] Problem Acute sinusitis, frontal (461.1) 2015 Problem resolved confirmed Acute frontal sinusitis (06699281) [facility] Problem Allergies (477.0) 2018 Problem resolved confirmed Allergic rhinitis caused by pollen (16736411) [facility] Problem Bruising (782.7) 2010 Problem resolved confirmed Bruising (604594657) [facility] Problem Cellulitis of the foot (682.7) 2007 Problem resolved confirmed Cellulitis and abscess of foot excluding toe (144971292) [facility] Problem Other abnormal findings on blood examination (790.99) 2017 Problem resolved confirmed Disorder of hematopoietic system (81515023) [facility] Problem Other abnormal laboratory result on blood (790.99) 2009 Problem resolved confirmed Disorder of hematopoietic system (46474713) [facility] Problem Sore Throat (462) 2016 Problem resolved confirmed Sore throat (917864956) [facility]- Problem Testicular pain (608.89) 2005 Problem resolved confirmed Pain in testicle (89461196) [facility] Problem Atypical mole (238.2) 2017 Problem resolved confirmed 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) [facility] Problem Chest pain (786.51) 2011 Problem resolved confirmed Chest pain (42885391) [facility] Problem Earache (388.71) 2006 Problem resolved confirmed Earache (01922096) [facility] Problem Elevated SGPT (ALT) (790.4) 2017 Problem resolved confirmed Elevated levels of transaminase & lactic acid dehydrogenase (158561982) [facility] Problem 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.84) 2003 Problem resolved confirmed Impotence of organic origin (128410505) [facility] Problem Fatigue (646.83) 2009 Problem resolved confirmed Fatigue (39238654) [facility] Problem Furuncle (680.9) 2016 Problem resolved confirmed Furuncle (959763616) [facility] Problem Generalized abdominal pain (789.07) 2012 Problem resolved confirmed Generalized abdomina l pain (934959867) [facility] Problem Generalized osteoarthritis, 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) 2004 Problem resolved confirmed Generalized osteoarthritis (449165982) [facility] Problem Influenza, with other respiratory manifestation (487.1) 2017 Problem resolved confirmed Influenza (5719958) [facility] Problem Lab: Used to match unlinked laboratory orders (V92) 2013 Problem resolved confirmed [facility] Problem Hand pain (729.5) 2012 Problem resolved confirmed Hand pain (35386168) [facility] Problem Ear ache (388.71) 2006 Problem resolved confirmed Ear ache (28158742) [facility] Problem Elevated SGOT (AST) (790.4) 2010 Problem resolved confirmed Elevated levels of transaminase & lactic acid dehydrogenase (154766175) [facility] Problem Foot pain (729.5) 2004 Problem resolved confirmed Foot pain (60013259) [facility] Problem Hypertension (401.1) 2004 Problem resolved confirmed Hypertension (39465167) [facility] Problem Hypoglycemia (251.2) 2011 Problem resolved confirmed Hypoglycemia (815198781) [facility] Problem IDDM (250.01) 2007 Problem resolved confirmed Type I diabetes mellitus without complication (981387605) [facility] Problem Insomnia (307.41) 2009 Problem resolved confirmed Insomnia (431306261) [facility] Problem Precordial chest pain (786.51) 2007 Problem resolved confirmed Precordial pain (76679401) [facility] Problem Screening for colorectal cancer (V76.49) 2013 Problem resolved confirmed Screening for malignant neoplasm of colon (710665619) [facility] Problem Acute sinusitis, maxillary (461.0) 2003 Problem resolved confirmed Acute maxillary sinusitis (32576369) [facility] Problem Other myeloid leukemia, 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 Problem resolved confirmed [facility] Problem Other specified iron deficiency anemia (280.8) 2013 Problem resolved confirmed Iron deficiency anemia (83405700) [facility] Problem Situational stress with anxiety (300.09) 2014 Problem resolved confirmed Anxiety state (219346551) [facility] Problem Short of breath (786.05) 2013 Problem resolved confirmed Dyspnea (824088548) [facility] Problem Subjective visual disturbance, unspecified (368.10) 2015 Problem resolved confirmed Subjective visual disturbance (60632332) [facility] Problem Tylenol overdose (965.4) 2003 Problem resolved confirmed [facility] Problem Vaccination against other viral diseases, Influenza (V04.81) 2012 Problem resolved confirmed Needs influenza immunization (483802934) [facility] Problem Viral meningitis, unspecified (047.9) 2013 Problem resolved confirmed Viral meningitis (82415270) [facility] Problem Wrist tenosynovitis (727.05) 2015 Problem resolved confirmed Tendinitis AND/OR tenosynovitis of wrist AND/OR hand (400802525) [facility] Problem Abnormal EKG (794.31) 2012 Problem resolved confirmed Electrocardiogram abnormal (394770479) [facility] Problem Acute upper respiratory infection (465.8) 2004 Problem resolved confirmed Acute upper respiratory infection (94895812) [facility] Problem BPH (600.00) 2016 Problem resolved confirmed Benign prostatic hypertrophy (376367640) [facility] Problem Broken toe (826.0) 2010 Problem resolved confirmed Closed fracture of phalanx of foot (87490960) [facility] Problem Chronic otitis media (382.9) 2011 Problem resolved confirmed Chronic otitis media (07660720) [facility] Problem Neurodermatitis (698.3) 2014 Problem resolved confirmed Lichenification and lichen simplex chronicus (855311418) [facility] Problem Serous otitis media, chronic (381.10) 2010 Problem resolved confirmed Chronic serous otiti s media (11776191) [facility] Problem Suture removal (V58.3) 2003 Problem resolved confirmed [facility] Problem Acute otitis media (382.00) 2010 Problem resolved confirmed Acute otitis media (1668859) [facility] Problem Akathisia (781.0) 2009 Problem resolved confirmed Akathisia (133116452) [facility] Problem Atypical skin lesion (238.2) 2012 Problem resolved confirmed Neoplasm of uncertai n behavior of skin (15882722) [facility] Problem Chronic lymphoid leukemia (204.10) 2003 Problem resolved confirmed Chronic lymphoid leukemia (06289055) [facility] Problem Closed hip fracture, unspecified (820.8) 2014 Problem resolved confirmed Closed fracture of neck of femur (391872064) [facility] Problem Constipation secondary to opiate use (E935.2) 2016 Problem resolved confirmed [facility]- Problem Classic migraine (346.00) 2005 Problem resolved confirmed Migraine with aura (4376071) [facility]- Problem Constipation (564.01) 2007 Problem resolved confirmed Constipation (69022957) [facility]- Problem Itching (698.9) 2018 Problem resolved confirmed Itching (898912818) [facility] Problem Twitch (781.0) 2010 Problem resolved confirmed Twitch (60426916) [facility]- Problem Acute sinusitis (461.8) 2009 Problem resolved confirmed Acute sinusitis (74481996) [facility]- Problem Ankle pain (719.47) 2008 Problem resolved confirmed Ankle pain (846026388) [facility] Problem Ankle swelling (719.07) 2004 Problem resolved confirmed Ankle swelling (433103563) [facility] Problem Cellulitis of the arm (682.3) 2018 Problem resolved confirmed Cellulitis and abscess of upper arm (020070543) [facility] Problem Erectile dysfunction (302.72) 2003 Problem resolved confirmed Erectile dysfunction (162238296) [facility] Problem Gouty arthritis (274.0) 2004 Problem resolved confirmed Gouty arthritis (81870131) [facility] Problem Gouty joint (274.0) 2004 Problem resolved confirmed Gouty arthropathy (590936598) [facility] Problem Toothache (525.9) 2004 Problem resolved confirmed Toothache (02888316) [facility] Problem Abnormal laboratory test findings without diagnosis (796.4) 2004 Problem resolved confirmed [facility] Problem Acute myeloid leukemia, 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 Problem resolved confirmed Acute myeloid leukemia in remission (01640117) [facility] Problem BPH (600.0) 2003 Problem resolved confirmed Benign prostatic hypertrophy (602097302) [facility] Problem Testicular dysfunction (257.9) 2006 Problem resolved confirmed Testicular dysfunction (75693152) [facility] Problem Thrombocytopenia (287.5) 2017 Problem resolved confirmed Thrombocytopenia (464844336) [facility] Problem Type II diabetes requiring insulin (250.00) 2013 Problem resolved confirmed Type II diabetes mellitus without complication (203460936) [facility] Problem Wrist pain (719.43) 2015 Problem resolved confirmed Wrist pain (35189682) [facility] Problem Upper respiratory illness (465.8) 2017 Problem resolved confirmed Acute upper respiratory infection (45854721) [facility] Problem Ear ache (388.70) 2007 Problem resolved confirmed Ear ache (26581406) [facility] Problem Earache (388.70) 2009 Problem resolved confirmed Earache (89531806) [facility] Problem Hip pain (719.45) 2014 Problem resolved confirmed Hip pain (13032337) [facility] Problem Nonalcoholic fatty liver (571.8) 2016 Problem resolved confirmed Non-alcoholic fatty liver (986526907) [facility] Problem Osteoporosis (733.09) 2006 Problem resolved confirmed Osteoporosis (36196512) [facility] Problem Essential hypertension (401.1) 2003 Problem resolved confirmed Essential hypertension (21193721) [facility] Problem Excessive sweating (780.8) 2009 Problem resolved confirmed Excessive sweating (80933462) [facility] Problem External cerumen impaction (380.4) 2017 Problem resolved confirmed Impacted cerumen (95965880) [facility] Problem Finger pain (729.5) 2011 Problem resolved confirmed Finger pain (58919418) [facility] Problem Influenza vaccination (V04.81) 2013 Problem resolved confirmed Influenza vaccinatio n (46788807) [facility] Problem Mid-abdominal pain (789.05) 2017 Problem resolved confirmed Periumbilical pain (666974496) [facility] Problem Myelodysplasia (742.59) 2009 Problem resolved confirmed Myelodysplasia of spinal cord (272870151) [facility]- Problem Myelodysplastic syndrome (238.7) 2005 Problem resolved confirmed Myelodysplastic syndrome (154495683) [facility] Problem Primary hypercholesterolemia (272.0) 2010 Problem resolved confirmed Primary hypercholesterolemia (201587443) [facility] Problem Testosterone deficiency (259.8) 2009 Problem resolved confirmed Androgen deficiency (69106819) [facility] Problem Tinea cruris (110.3) 2015 Problem resolved confirmed Tinea cruris (878307022) [facility] Problem Unspecified skin lesion (239.2) 2007 Problem resolved confirmed Neoplasm of uncertai n behavior of connective and other soft tissues (97446863) [facility] Problem Abscess of the arm (682.3) 2017 Problem resolved confirmed Cellulitis and abscess of upper arm (039956259) [facility] Problem Lymphoma (202) 2014 Problem resolved confirmed Lymphoma (080924271) [facility] Problem Parasomnia (780.59) 2017 Problem resolved confirmed Parasomnia (10396468) [facility] Problem Sleep disturbance, other (780.59) 2017 Problem resolved confirmed Sleep disturbance (23122031) [facility] Problem 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) 2017 Problem resolved confirmed Monoarthritis (466501457) [facility] Problem 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.9) 2015 Problem resolved confirmed White blood cell disorder (48144614) [facility] PLAN OF TREATMENT Pending Test Test Name Order Date Prothrombin Time 55328 04/19/2020 ABORh 58966, 75439 04/19/2020 Antibody Screen 95789 04/19/2020 Basic Metabolic Panel 22039 04/19/2020 CBC w\ Auto Diff 31185 04/19/2020 Partial Thromboplastin Time 31635 2019 Chest PA/Lat-13452 04/19/2020 Chest PA/Lat-94054 04/20/2020 Lumbosacral Spine AP/Lat-92495 0 Lumbosacral Spine AP/Lat-36550 0 XR Outside CD 01/23/2019 Glucometer WBG--51761 04/22/2020 Glucometer WBG--91215 04/22/2020 Glucometer WBG--28054 04/22/2020 zzzFluoroscopy 04/22/2020 COVID 19 PCR--43665 04/19/2020 zzzMRI Outside CD 01/23/2019 Next Appt Details Provider Name:Jesusita de leon, 04/04/2023 02:30:00 PM, [address], [place], [id number], Insurance Providers Payer Name Payer Address Payer Phone Subscriber Number Group Number Insured Name Patient Relationship to Insured Coverage Start Date Coverage End Date [facility] Medicare Advantage HMO [address] [address] [place] [address] [id number] Javi Inder Self - patient is the insured 9 [employer] [address] [address] [place] [address] [id number] Inder Caldwell Self - patient is the insured 4 4 MEDICAL (GENERAL) HISTORY Medical History History ICD Code Hypertension Gastroesophagea l Reflux Disease Chronic Pain: affecting the low back; Type 2 Diabetes: Testing Frequency 1; Is patient treated with insulin injections? Yes; Is pt using an infusion pump to administer insulin No; Leukemia ObesityHigh grade myelodysplastic disorder with distory of nonrelated donor bone marrow transplant, [id number] disease, PREVENTIVE HEALTH MAINTENANCE ENDOSCOPY: was last done 07/29/12 gastric bezoar INFLUENZA VACCINE: was last done 10\4\2013 PNEUMOCOCCAL VACCINE: was last done 2009 Occult blood (stool) 09/26/2013 How many FOBT cards were tested 3 Negative Results 3 Surgical History Surgery Date(Month/Year) broken back repair 1986, 1996 cholecystectomy 1997 tonsillectomy 1979 right hip repair 2016 removal hardware back 2002; Procedures: Bone Marrow Transplant Hospitalization History Reason Date(Month/Year) surgery list
--- OUTSIDE RECORDS SUMMARY | 2023-02-11 06:33 | XMS_ITS | Patient Health Record ---
Author Name Unknown Organization [facility] Address [address] [place], [place] [id number] Care Team Providers Care Broadband Installer Name Role Phone Jaziel DEVI, Ramirez Primary Care Provider Gasper Smith MD, Kevin Unavailable [phone] Kisha Escamilla Unavailable [phone] ALLERGIES Allergen (clinical drug ingredient) Drug/Non Drug Allergy documented on EMR Reaction Allergy Type Onset Date Status codeine codeine stomach upset Drug Allergy Act tj morphine morphine easily addictive Drug Allergy Active carisoprodol Soma hallucination Drug Allergy Active RESULTS Component Value Reference Range Notes Urine tox screen / MS if ind icated Reviewed date:03/20/2022 02:41:26 PM Interpretation: Performing Lab: Notes/Report: Urine tox screen / MS if ind icated Reviewed date:09/19/2022 01:56:04 PM Interpretation:Consistent Performing Lab: Notes/Report: Consistent REASON FOR REFERRAL No Information MEDICATIONS Medication SIG (Take, Route, Frequency, Duration) Notes Start Date End Date Status HumaLOG 100 units/mL subcutaneously as directed Active oxyCODONE 10 mg 1-2 tabs po orally Q4-6H prn pain (max 6/day; hold within 4H of planned sleep) for 30 day(s) Do not fill prior to 03/12/23. ICD-10: G89.29 12/19/2022 Active furosemide 40 mg 1 tab(s) orally once a day for 30 day(s) Active gabapentin 600 mg 1 tab orally 4 times a day Active albuterol 90 mcg/inh 2 puff(s) inhaled every 6 hours Active ondansetron 4 mg 1 tab(s) orally ever y 8 hours Active Centrum Silver Men's as directed Active oxyCODONE 15 mg 1 tab po orally Q4H prn pain (max 4/day; hold within 4H of planned sleep) for 30 day(s) 12/12/2022 Active Lantus 100 units/mL subcutaneously as directed Active sucralfate 1 g 1 tab(s) orally 4 times a day (before meals and at bedtime) for 30 day(s) Active losartan 25 mg 1 tab orally once a day Active oxyCODONE 10 mg 1-2 tabs po orally Q4-6H prn pain (max 6/day; hold within 4H of planned sleep) for 30 day(s) Do not fill prior to 01/11/23. ICD-10: G89.29 12/19/2022 Active famotidine 20 mg 1 tab(s) orally 2 times a day Active oxyCODONE 10 mg 1-2 tabs po orally Q4-6H prn pain (max 6/day; hold within 4H of planned sleep) for 30 day(s) Do not fill prior to 02/10/23. ICD-10: G89.29 12/19/2022 Active fluticasone nasal 50 mcg/inh 2 sprays intranasally once a day Active DayQuil Cold and Flu 325 mg-10 mg-5 mg 2 caps orally every 4 hours Active pantoprazole 40 mg 1 tab(s) orally once a day for 30 day(s) Active dimenhyDRINATE 50 mg 1 tab(s) orally tracie ry 6 hours Active potassium chloride 10 mEq 1 cap(s) orally 2 times a day Active SOCIAL HISTORY Tobacco Use: Social History Observation Description Date Details (start date - stop date) Never Smoker NA - NA Sex Assigned At : Social History Observation Description Sex Assigned At Unknown alcohol Question Answer Notes Did you have a drink containing alcohol in the p ast year? 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 (867394216) Problem Sacroiliitis, not elsewhere classified (M46.1) Active confirmed Solitary sacroiliitis (944198022) Problem Low back pain (M54.5) Active confirmed Low back pain (950941425) Problem Spondylosis without myelopathy or radiculopathy, lumbar region (M47.816) Active confirmed Lumbosacral spondylosis without myelopathy (86359337) 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) Active confirmed High risk drug monitoring status (014142200) Problem Enthesopathy, unspecified (M77.9) Active confirmed Enthesopathy (47061822) Problem Other specified anxiety disorders (F41.8) Active confirmed Anxiety disorde r (400842856) Problem Other sleep disorders (G47.8) Active confirmed Sleep diso rder (49693532) Problem Other chronic pain (G89.29) Active confirmed Chronic pain (82100841) Problem Intervertebral disc disorders with radiculopathy, lumbar region (M51.16) Active confirmed Radiculopathy d ue to lumbar intervertebral disc disorder (615188399224097) Problem Postlaminectomy syndrome, not elsewhere classified (M96.1) Active confirmed Post-lami nectomy syndrome (91190763) Problem 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 (Z79.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) Active confirmed Long-term current use of drug therapy (305670288) Problem Spinal stenosis, lumbar region with neurogenic claudication (M48.062) Active confirmed Neurogenic claudication (085989216) Problem Myalgia, other site (M79.18) Active confirmed Muscle pain (53938162) Problem Vertebrogenic low back pain (M54.51) Active confirmed Pain in l umbar spine (995165322) Encounters Encounter Location Date Provider Diagnosis [facility] [address] [place], [place] [id number] 12/11/2022 Kevin Smith [facility], [facility] [address] [place], [place] [id number] 12/19/2022 Kisha Ann Vertebrogenic low ba ck pain M54.51 ; Other chronic pain G89.29 and Other sleep disorders G47.8 [facility] [address] [place], [place] [id number] 03/20/2022 Kevin Smith Postlaminectomy syndrome, not elsewhere classified M96.1 ; Vertebrogenic low back pain M54.51 ; Spinal stenosis, lumbar region with neurogenic claudication M48.062 ; Sacroiliitis, not elsewhere classified M46.1 ; Spondylosis without myelopathy or radiculopathy, lumbar region M47.816 ; Intervertebral disc disorders with radiculopathy, lumbar region M51.16 ; Myalgia, other site M79.18 ; Enthesopathy, unspecified M77.9 ; Other sleep disorders G47.8 and care home (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 of opiate analgesic Z79.891 [facility], [address] [id number] 06/14/2022 Kevin Smith Postlaminectomy syndrome, not elsewhere classified M96.1 ; Vertebrogenic low back pain M54.51 ; Spinal stenosis, lumbar region with neurogenic claudication M48.062 ; Sacroiliitis, not elsewhere classified M46.1 ; Spondylosis without myelopathy or radiculopathy, lumbar region M47.816 ; Intervertebral disc disorders with radiculopathy, lumbar region M51.16 ; Myalgia, other site M79.18 ; Enthesopathy, unspecified M77.9 ; Other sleep disorders G47.8 and 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 Previous L1-4 bony fusion and severe L4-5 spinal stenosis noted upon review of that imaging study report. Could consider DCS trial, however, patient has stated that he is not interested (at 09/30/19 visit). Had again recommended patient consider DCS: written and AV information regarding DCS trial / placement given to patient at 03/28/21 visit: patient has deferred on this treatment option. Patient previously asked for a prescription to replace his cane. He was provided a Rx for a Hurry Cane per patient preference 06/14/2022 Postlaminectomy syndrome, not elsewhere classified (ICD-10 - M96.1) Prior updated imaging reviewed. Previous L1-4 bony fusion and severe L4-5 spinal stenosis noted upon review of that imaging study report. Could consider DCS trial, however, patient has stated that he is not interested (at 09/30/19 visit). Had again recommended patient consider DCS: written and AV information regarding DCS trial / placement given to patient at 03/28/21 visit: patient had again declined / deferred on this treatment option. Patient previously asked for a prescription to replace his cane. He was provided a Rx for a Hurry Cane per patient preference 09/19/2022 Other chronic pain (ICD-10 - G89.29) Patient reports that his oxycodone pain medication allows him to be more active. Plan to continue current oral opioid medication 12/19/2022 Vertebrogenic low back pain (ICD-10 - M54.51) Chronic lumbar spine pain 09/19/2022 Vertebrogenic low back pain (ICD-10 - M54.51) 09/19/2022 Other sleep disorder s (ICD-10 - G47.8) Patient confirms he continues to use nocturnal oxygen as prescribed by his PCP 12/19/2022 Other chronic pain (ICD-10 - G89.29) Patient reports that taking his pain medication allows him to walk for exercise and work in his yard. Plan to continue oral opioid medication management 12/19/2022 Other sleep disorder s (ICD-10 - G47.8) Patient confirms he continues to use nocturnal oxygen as prescribed by his PCP 06/14/2022 Vertebrogenic low back pain (ICD-10 - M54.51) Chronic axial lumbosacral spine pain. Prior conservative treatment by patient as noted, below. Prior minimally invasive interventional spine treatment as noted, below. Prior surgical procedures as noted, below. Oral opioid medication use with history of benefit. Plan to continue medication management 06/14/2022 Spinal stenosis, lumbar region with neurogenic claudication (ICD-10 - M48.062) Severe stenosis at L4-5 as per prior imaging report. Patient had previously expressed little desire for additional neurosurgery such as L4-5 decompression. Patient had previously deferred on LESI (prior injections via other providers with history of no longer - term benefit). Patient subsequently underwent lumbar spine surgery with Dr. Moe in [place], [place] on 12/17/20, below 03/20/2022 Vertebrogenic low back pain (ICD-10 - M54.51) Oral opioid medication use with history of benefit. Plan to continue medication management 03/20/2022 Spinal stenosis, lumbar region with neurogenic claudication (ICD-10 - M48.062) Severe stenosis at L4-5 as per prior imaging report. Patient had previously expressed little desire for additional neurosurgery such as L4-5 decompression. Patient had previously deferred on LESI (prior injections via other providers with history of no longer - term benefit). Patient subsequently underwent lumbar spine surgery with Dr. 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 Sacral arthropathy has been noted to be a confounding variable in regards to lower lumbar pain 03/20/2022 Spondylosis without myelopathy or radiculopathy, lumbar region (ICD-10 - M47.816) Bilateral L4 medial branch, bilateral L5 dorsal ramus RFA with history of efficacy. Sacral arthropathy has been noted to be a confounding variable in regards to lower lumbar pain 03/20/2022 Intervertebral disc disorders with radiculopathy, lumbar region (ICD-10 - M51.16) 06/14/2022 Intervertebral disc disorders with radiculopathy, lumbar region (ICD-10 - M51.16) 06/14/2022 Myalgia, other site (ICD-10 - M79.18) TPIs with history of only transient benefit / no significant efficacy noted 03/20/2022 Myalgia, other site (ICD-10 - M79.18) TPIs with history of only transient benefit / no significant efficacy noted 03/20/2022 Enthesopathy, unspecified (ICD-10 - M77.9) Tendon steroid injections of right shoulder with efficacy that was greatly appreciated by patient 06/14/2022 Enthesopathy, unspecified (ICD-10 - M77.9) Tendon steroid injections of right shoulder with efficacy that was greatly appreciated by patient 06/14/2022 Other sleep disorder s (ICD-10 - G47.8) [address] [facility] sleep study report has been reviewed. Would continue use of nocturnal oxygen as prescribed by another physician. Sleep study report revealed no diagnostic evidence for sleep apnea or nocturnal hypoxemia; however, AHI was 2 (all hypopneas) and lowest SaO2 was 89% (borderline hypoxemia). Plan to restrict opioid usage in relation to sleep: patient has verbalized understanding of reasoning to hold short-acting opioids within four hours of planned sleep. Patient has been counseled that synergistic risk occurs with concomitant opioid and sedative usage. Patient has been counseled on the risks of sleep apnea (if present), with or without opioid and / or other sedative usage, and the patient verbalized understanding and acceptance of the increased risk (sleep apnea, respiratory depression, ) with opioid and / or sedative substance usage. Patient has been counseled to hold opioid and / or sedative substances prior to planned sleep or dangerous activities and patient verbalized understanding that noncompliance would be at patient's increased risk 03/20/2022 Other sleep disorder s (ICD-10 - G47.8) [address] [facility] sleep study report has been reviewed. Would continue use of nocturnal oxygen as prescribed by another physician. Sleep study report revealed no diagnostic evidence for sleep apnea or nocturnal hypoxemia; however, AHI was 2 (all hypopneas) and lowest SaO2 was 89% (borderline hypoxemia). Plan to restrict opioid usage in relation to sleep: patient has verbalized understanding of reasoning to hold short-acting opioids within four hours of planned sleep. Patient has been counseled that synergistic risk occurs with concomitant opioid and sedative usage. Patient has been counseled on the risks of sleep apnea (if present), with or without opioid and / or other sedative usage, and the patient verbalized understanding and acceptance of the increased risk (sleep apnea, respiratory depression, ) with opioid and / or sedative substance usage. 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 This places the patient in the [facility]' high risk category for total daily opioid usage (not to be confused with separate potential risk in regards to possible sleep apnea and / or nocturnal hypoxemia - not confimed on a prior sleep study). Have recommended patient taper daily doses to the lowest number of daily doses that provide effective analgesia. Patient has received the Opioid Analgesic REMS Patient Counseling Guide. Patient has had opportunity to read the Guide and ask questions pertaining to the Guide. Patient has been advised on 03/23/20 that due to the [employer] concerns and actions, any suspected patient misuse, abuse, or diversion of controlled substances (i.e. opioids/narcotics/p ain killers) WILL result in dissolution of treatment from this clinic. Patients adhering to the concepts contained within the patient's Treatment Agreement will be protected from such termination of care. Patient was given a copy of the Treatment Agreement, signed by patient on 07/01/19. Patient signed an opioid consent form on 07/01/19. Patient has refused offer of a Narcan nasal spray prescription. 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 This places the patient in the [facility]' high risk category for total daily opioid usage (not to be confused with separate potential risk in regards to possible sleep apnea and / or nocturnal hypoxemia - not confimed on a prior sleep study). Have recommended patient taper daily doses to the lowest number of daily doses that provide effective analgesia. Patient has received the Opioid Analgesic REMS Patient Counseling Guide. Patient has had opportunity to read the Guide and ask questions pertaining to the Guide. Patient has been advised on 03/23/20 that due to the [employer] concerns and actions, any suspected patient misuse, abuse, or diversion of controlled substances (i.e. opioids/narcotics/p ain killers) WILL result in dissolution of treatment from this clinic. Patients adhering to the concepts contained within the patient's Treatment Agreement will be protected from such termination of care. Patient was given a copy of the Treatment Agreement, signed by patient on 07/01/19. Patient signed an opioid consent form on 07/01/19. Patient has refused offer of a Narcan nasal spray prescription 03/20/2022 Other 06/14/2022 Other 09/19/2022 Other 12/19/2022 Other PLAN OF TREATMENT Next Appt Details Provider Name:Kevin Lopez son, 04/03/2023 09:30:00 AM, [address] [facility], [place], [place], [id number], Insurance Providers Payer Name Payer Address Payer Phone Subscriber Number Group Number Insured Name Patient Relationship to Insured Coverage Start Date Coverage End Date [facility] [address] [address] [place] [id number] Inder Caldwell Self - patient is the insured 3 [facility] [address] [address] [place] [address] [id number] Javi Inder Self - patient is the insured 3 3 MEDICAL (GENERAL) HISTORY Medical History History ICD Code Chronic pain Low back pain Lumbar spondylosis, disc dis ease, spinal stenosis and post-laminectomy syndrome Lumbar compression fracture, L2 Sacroiliitis Thoracic compression fracture, T12 Right shoulder pain Hypertension Leukemia (remission 2005) Diabetes mellitus Non-Hodgkin's lymphoma (remission 2014) Trigger fingers x 2 (bilateral) Obesity, mild Surgical History Surgery Date(Month/Year) T[place]illect[place], [place], 1978 Lumbar fusion / fixation, performed in [place], [place], 1996 Removal of lumbar hardware / bony fusion added, performed in [place], [place], 2002 Right hip surgery, performed in [place], [place], 2014 Right hip surgery, revision, performed i [place], [place], 2015 Colonoscopy, performed at [facility] by Dr. Joel, 12/2018 Left L4 hemilaminotomy with medial facetectomy and foraminotomy, performed at [facility] by Dr. Yaya Moe, 04/22/20 Hospitalization History Reason Date(Month/Year) Leukemia, 2004 Bone marrow transplant, 2005 UTI (turned into sepsis), treated at [facility] , 07/2022
[2023-02-11] MEDS: lactulose oral liq 20 gm/30 mL UDC 10 GM PO ×3 (08:11→21:44)
[2023-02-11] MEDS: magnesium hydroxide 30 mL UDC PO (08:11)
[2023-02-11] MEDS: gabapentin 300 mg Capsule 600 MG PO (08:12)
[2023-02-11] MEDS: tamsulosin 0.4 mg Capsule PO (08:12)
[2023-02-11] MEDS: pantoprazole DR 40 mg Tablet PO (08:12)
[2023-02-11] MEDS: FUROsemide 10 mg/mL SDV 10mL 80 MG IVP (08:12)
[2023-02-11 10:50] LABS: Glucose Point of Care 103 mg/dL (70-110)
[2023-02-11 10:50] LABS: Glucose Point of Care 55 mg/dL (70-110)
[2023-02-11] MEDS: dextrose 50% syringe 50 mL IVP ×2 (10:54→17:04)
[2023-02-11] MEDS: gabapentin 300 mg Capsule PO ×3 (14:11→21:44)
--- NOTE | 2023-02-11 16:04 | P.PN_ITS ---
Subjective Subjective: Events overnight. As per the nursing staff patient has had good urine output after Lasix which she received late in the evening yesterday. Bledsoe catheter could not be placed because of significant scrotal edema. Patient states he is feeling slightly better. Patient is sleeping during the most part of the day. As per his this is his recent usual. Patient has remained hemodynamically stable and afebrile otherwise. Blood work shows a stable CBC without leukocytosis, stable hemoglobin, CMP showing resolution of hyperkalemia, acute kidney injury with creatinine down to 1.1, hypoglycemia with blood sugar 66 on CMP earlier today morning and repeat 55 later in the day Vitals/I&O/Wt Last Vital Signs Temp 97.9 F 02/11/23 04:00 Pulse 63 02/11/23 14:00 Resp 18 02/11/23 14:11 BP 139/93 02/11/23 12:00 Pulse Ox 77 L 02/11/23 12:00 O2 Del Method Nasal Cannula 02/11/23 09:05 O2 Flow Rate 2 02/11/23 09:05 02/11/23 02/11/23 02/11/23 06:59 14:59 22:59 Intake Total 350 / 622.1 960 / 960 Output Total 375 / 925 1850 / 1850 Balance -25 / -302.9 -890 / -890 Weight last 48 hrs Weight 101.605 kg Weight 101.605 kg Physical Exam Narrative: General: No acute distress, AO x3, NC oxygen supplementation, chronically sick appearing, anasarca HEENT: PERRLA, pupils bilaterally equal and reactive Chest:bilateral bronchial breath sounds all over lung cristina, decreased air entry bilaterally in lower zone, fine crackles over lower lung cristina CVS: S1-S2 regular, no murmurs, no tachycardia, no gallops, no rubs Abdomen: Soft, nontender, no organomegaly, bowel sounds present, morbidly obese Neuro: No focal deficits, no facial deformity, AO x3, power 5/5 in all limbs Data 02/11/23 05:11 02/11/23 05:11 Micro: Microbiology 02/10/23 15:30 Blood Culture - Preliminary Blood NEGATIVE TO DATE 02/10/23 15:35 Blood Culture - Preliminary Blood 02/10/23 22:30 Gram Stain - Final Sputum - Expectorated Sputum A&P Assessment and plan (1) CHF (congestive heart failure): Recent echocardiogram showed an EF of 45 to 50%, grade 2 diastolic dysfunction, moderate to severe MR. Recently increased oral lasix to 80 mg oral along with addition of metolazone and spironolactone 50 mg daily. proBNP elevated. Cycle troponins. Strict input output charting. Daily weights. Fluid restriction up to 1500 cc. Bledsoe catheter. IV Lasix 80 mg daily for now. Qualifiers: Heart failure chronicity: acute on chronic Heart failure type: unspecified Qualified Code(s): I50.9 - Heart failure, unspecified (2) CHENCHO (acute kidney injury): Cannot rule out in setting of congestive heart failure. Though patient is on losartan 50 mg, multiple diuretics including metolazone and spironolactone. Medical reconciliation done for nephrotoxic drugs. Hold off on losartan for now. CT abdomen pelvis negative for renal obstruction. Check urine lites, urine creatinine, urine eosinophils. (3) Hyperkalemia: Most likely in setting of acute kidney injury along with home use of spironolactone and D50 with 10 units of insulin one-time. Repeat potassium in a.m. Telemetry. (4) Anasarca: Most likely in setting of congestive heart failure along with mild hypoalbuminemia. Patient does have acute kidney injury as well. Treatment as above. No need for paracentesis for now. Continue to monitor. (5) Cardiomyopathy: (6) Moderate mitral regurgitation: (7) Type 2 diabetes, controlled, with neuropathy: Most recent A1c of 6.3. Continue with home dose of Lantus. Start on insulin sliding scale at moderate dose protocol. (8) Malignant pleural effusion: Diagnosed on pleural tap done in 07/27. Patient currently on room air. Hold off on thoracentesis for now. Being worked up as an outpatient to diagnose primary. CT scan done today does show patchy upper lobe infiltrates bilaterally right more than left, splenomegaly, normal liver and gallbladder along with pancreas, no hy dronephrosis (9) Constipation: Significant. Seen on CT abdomen pelvis. Aggressive bowel regimen with lactulose, milk of magnesia. (10) Multifocal lung consolidation: Seen on CT chest done today. Not seen on CT scan done in July 2022. Cannot rule out underlying pneumonia though patient does not give any history. Concerns for eosinophilic pneumonitis, Boop. 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 Not on any immunosuppressive therapy currently. Eosinophil levels normal on CBC today. Check sputum culture, fungitell. Wound culture recently showed MRSA, Pseudomonas, Enterococcus. Empirically for now start patient on Empirically start patient on vancomycin and meropenem. Bacterial pneumonia for now less likely. Will discontinue within next 24 to 48 hours if patient remains hemodynamically stable and afebrile. Plan Hypertension: Goal blood pressure less than 140/90 mmHg. Holding off on losartan given CHENCHO and hyperkalemia. If needed will plan to add amlodipine. CODE STATUS: Discussed in detail. Patient would want all measures done to make sure that he is alive. He is okay with chest compressions or life support if needed. Full code. Cardiac diet, fluid restriction Protonix for PUD prophylaxis Heparin 5000 every 12 hourly for DVT prophylaxis Plan for the day: Continue with aggressive IV diuresis with Lasix 80 mg daily. Monitor electrolytes. Hyperkalemia resolving. Strict input output charting, daily weights. Bledsoe catheter could not be placed because of significant scrotal edema. Out of bed to chair. Incentive spirometry. Low suspicion of bacterial pneumonia. Hold off on antibiotics and monitor. Follow-up sputum and blood culture. Hypoglycemia protocol. Low insulin dose protocol. Decrease Lantus to 30 units at bedtime. Takes 30 units twice daily as per at home. Carb consistent diet. Attestations Medical Necessity Statement*: Requires further hospitalization for management of significant anasarca, fluid overload in setting of systolic and diastolic congestive heart failure in a patient with history of malignant pleural effusion Diagnoses CHF (congestive heart failure) I50.9 Heart failure chronicity: acute on chronic Heart failure type: unspecified CHENCHO (acute kidney injury) N17.9 Hyperkalemia E87.5 Anasarca R60.1 Cardiomyopathy I42.9 Moderate mitral regurgitation I34.0 Type 2 diabetes, controlled, with neuropathy E11.40 Malignant pleural effusion J91.0 Constipation K59.00 Multifocal lung consolidation J18.1
[2023-02-11 17:16] LABS: Glucose Point of Care 43 mg/dL (70-110)
[2023-02-11] MEDS: dextrose 5 % 500 ML 50 ML IV (17:36)
[2023-02-11] MEDS: FUROsemide 10 mg/mL SDV 4mL 40 MG IVP (18:06)
[2023-02-11] MEDS: dextrose 5%-sod chloride 0.45% 1,000 ML 50 ML IV (20:16)
[2023-02-11 20:58] LABS: Glucose Point of Care 116 mg/dL (70-110)
[2023-02-12] VITALS (28 sets, daily range): BP systolic 107–166; BP diastolic 64–97; PULSE 66–79; RESP 14–26; TEMP 36.9–37.6; O2SAT 74–99
[2023-02-12] MEDS: sucralfate 1 gm Tablet PO ×4 (04:54→22:03)
[2023-02-12] MEDS: heparin 5,000 unit/mL INJ 1 mL 5000 UNIT SUBCUT ×2 (04:54→16:59)
[2023-02-12] MEDS: pantoprazole DR 40 mg Tablet PO (04:55)
[2023-02-12] MEDS: tamsulosin 0.4 mg Capsule PO (04:55)
[2023-02-12 06:05] LABS: Basophils # 0.1 10^3/uL (0.0-0.1); Basophils % 1.5 %; Eosinophils # 0.3 10^3/uL (0.0-0.8); Eosinophils % 6.5 %; Hematocrit 31.9 % (37-53); Lymphocytes # 1.2 10^3/uL (0.8-4.8); Lymphocytes % 25.1 %; Mean Corpuscular HGB Conc 27.9 g/dL (30-55); Mean Corpuscular Hemoglobin 25.4 pg (27-33); Mean Corpuscular Volume 91.1 fl (82-101); Mean Platelet Volume 10.8 fL (7.4-10.4); Monocytes # 0.4 10^3/uL (0.2-0.9); Monocytes % 8.2 %; Neutrophils % 58.5 %; Nucleated Red Blood Cells % 0 %; Platelet Count 153 10^3/cmm (157-399); Red Cell Distribution Width 18.3 % (12.1-15.1); White Blood Count 4.78 10^3/uL (3.29-11.43)
[2023-02-12 06:26] LABS: Alanine Aminotransferase 10 U/L (0-41); Albumin Level 2.8 g/dL (3.5-5.2); Alkaline Phosphatase 280 U/L (40-130); Anion Gap 7.1 (5-19); Aspartate Amino Transferase 24 U/L (0-40); Blood Urea Nitrogen 24 mg/dL (8-23); Calcium 8.2 mg/dL (8.5-10.5); Carbon Dioxide 34 mmol/L (22-29); Chloride 104 mmol/L (98-107); Globulin 4.2 g/dL (1.3-4.6); Glomerular Filtration Rate 66.2 mL/min (90-130); Glucose 109 mg/dL (65-115); Osmolality Calculated 295 mOsm/kg (285-295); Potassium 5.1 mmol/L (3.5-5.1); Sodium 140 mmol/L (136-145); Total Bilirubin 0.3 mg/dL (0.15-1.2)
[2023-02-12 06:52] LABS: Glucose Point of Care 104 mg/dL (70-110)
[2023-02-12] MEDS: FUROsemide 10 mg/mL SDV 10mL 80 MG IVP (07:33)
[2023-02-12] MEDS: magnesium hydroxide 30 mL UDC PO (08:31)
[2023-02-12] MEDS: gabapentin 300 mg Capsule PO ×4 (08:31→22:03)
[2023-02-12] MEDS: lactulose oral liq 20 gm/30 mL UDC 10 GM PO ×3 (08:31→22:03)
[2023-02-12] MEDS: oxyCODONE 5 mg IR Tab/Cap PO ×3 (09:55→22:04)
[2023-02-12 11:51] LABS: Glucose Point of Care 164 mg/dL (70-110)
[2023-02-12] MEDS: acetaminophen 325 mg Tablet 650 MG PO ×2 (12:30→18:56)
[2023-02-12 12:37] LABS: Creatine Phosphokinase 24 U/L (39-308)
[2023-02-12 14:00] LABS: Bacillus cereus group Not Detected (NOT DETECT); Bacillus subtillis group Not Detected (NOT DETECT); Corynebacterium Not Detected (NOT DETECT); Cutibacterium acnes (P.acnes) Not Detected (NOT DETECT); Enterococcus Not Detected (NOT DETECT); Enterococcus faecalis Not Detected (NOT DETECT); Enterococcus faecium Not Detected (NOT DETECT); Lactobacillus species Not Detected (NOT DETECT); Listeria Not Detected (NOT DETECT); Listeria monocytogenes Not Detected (NOT DETECT); Micrococcus Not Detected (NOT DETECT); Pan Candida Not Detected (NOT DETECT); Pan Gram-Negative Not Detected (NOT DETECT); Staphylococcus epidermidis Not Detected (NOT DETECT); Staphylococcus lugdunensis Not Detected (NOT DETECT); Staphylococcus species Not Detected (NOT DETECT); Streptococcus agalactiae Not Detected (NOT DETECT); Streptococcus anginosus group Not Detected (NOT DETECT); Streptococcus pneumoniae Not Detected (NOT DETECT); Streptococcus pyogenes Not Detected (NOT DETECT); Streptococcus species Not Detected (NOT DETECT)
[2023-02-12 17:11] LABS: Glucose Point of Care 153 mg/dL (70-110)
--- NOTE | 2023-02-12 17:52 | PC.NURSE ---
Rennyaboot applied bilaterally to legs by Serene Lay RN. Serene phoned Dr. Mosquera to ask about the benedicto boot and he gave the ok to dress them and Ray confirmed that we could use the Hydrafera blue to treat wounds on legs. Patient tolerated procedure well.
[2023-02-12] MEDS: insulin lispro 100 unit/1 mL SUBCUT ×2 (17:59→20:29)
--- NOTE | 2023-02-12 19:53 | P.PN_ITS ---
Subjective Subjective: He has been feeling fairly weak, generalized body ache. This morning got confused and started pulling off telemetry wires and his IV. Has been having some dysuria. Vitals/I&O/Wt Last Vital Signs Temp 98.7 F 02/12/23 19:46 Pulse 70 02/12/23 19:46 Resp 22 H 02/12/23 19:46 BP 147/74 02/12/23 19:46 Pulse Ox 92 02/12/23 19:53 O2 Del Method Nasal Cannula 02/12/23 19:53 O2 Flow Rate 2 02/12/23 19:53 02/12/23 02/12/23 02/12/23 06:59 14:59 22:59 Intake Total 420 / 420 1240 / 1660 Output Total 500 / 5100 1570 / 1570 400 / 1970 Balance -500 / -3646.667 -1150 / -1150 840 / -310 Weight last 48 hrs Weight 101.605 kg Physical Exam Narrative: Accompanied by family. Sitting up in chair. Const: COMMON NORMALS: patient oriented x3 and alert GENERAL APPEARANCE: cooperative ORIENTATION/CONSCIOUSNESS: Yes awake HENMT: COMMON NORMALS: oropharynx normal Neck/C-Spine: COMMON NORMALS: no JVD Resp: COMMON NORMALS: normal respiratory effort and clear to auscultation bilaterally AUSCULTATION: clear to auscultation bilaterally Cardio: COMMON NORMALS: no JVD, regular rhythm, S1 normal heart sound present, S2 normal heart sound present and No murmurs present (Cardio) RHYTHM: regular rhythm HEART SOUNDS: S1 normal heart sound present and S2 normal heart sound present GI: COMMON NORMALS: Normal to inspection, nondistended, normoactive bowel sounds present, Soft to palpation and non-tender PALPATION: Yes Soft to palpation Extremity: COMMON NORMALS: no joint enlargement OTHER: 2+ edema Extending to thighs. Distal edema of his arms/hands. Neuro: COMMON NORMALS: patient oriented x3 and moves all extremities SENSORIUM/ORIENTATION: Yes alert Skin: COMMON NORMALS: no rashes or lesions noted GENERAL SKIN EXAM: no rashes or lesions noted Data 02/12/23 05:45 02/12/23 05:45 Micro: Microbiology 02/10/23 22:30 Gram Stain - Final Sputum - Expectorated Sputum Sputum Culture - Preliminary 02/10/23 15:30 Blood Culture - Preliminary Blood NEGATIVE TO DATE 02/10/23 15:35 Blood Culture - Preliminary Blood A&P Assessment and plan (1) CHF (congestive heart failure): Again noted fluid overload with decompensated CHF. 2+ lower extremity edema up to thighs. Edema of distal arms. Stop IVF. Continue IV diuresis. Monitor BRIAN. Discussed risk of kidney injury. Reviewed BUN, creatinine, electrolytes. Potassium noted on higher side. Changed to low potassium diet. Repeat chem istry requested. Discussed Fluid restriction up to 1500 cc. Bledsoe catheter. Requiring low rate oxygen supplementation. So far plans have been to return to go home, he has not been getting up and has been weak. Spent last several days in the chair. Will obtain PT assessment. Discussed with case management. Qualifiers: Heart failure chronicity: acute on chronic Heart failure type: unspecified Qualified Code(s): I50.9 - Heart failure, unspecified (2) Hypoglycemia: Lantus has been stopped. Continue to monitor blood glucose. So far hypoglycemia has resolved on review of glucose. Stop D5W. (3) CHENCHO (acute kidney injury): Reviewed kidney function, has been noted to be improving, but is also having pe rsistent/worsened CHF/fluid overload. Diffuse body ache today. Check CK. Reviewed. Noted WNL. Continue diuresis. Stop IVF. Reassess renal function. Medical reconciliation done for nephrotoxic drugs. Hold off on losartan for now. CT abdomen pelvis negative for renal obstruction. Reviewed urine eosinophils Reviewed urine electrolytes. On my interpretation appears to have prerenal renal failure. Cannot exclude cardiorenal, although blood pressure has not been soft in the hospital, but has been off of ARB. (4) Hyperkalemia: Changed to low potassium diet. Telemetry. (5) Anasarca: As above (6) Cardiomyopathy: (7) Moderate mitral regurgitation: (8) Type 2 diabetes, controlled, with neuropathy: Most recent A1c of 6.3. Lantus has been stopped. 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 Follow-up with oncology. Patient currently on room air. Hold off on thoracentesis for now. Being worked up as an outpatient to diagnose primary. CT scan done today does show patchy upper lobe infiltrates bilaterally right more than left, splenomegaly, normal liver and gallbladder along with pancreas, no hydronephro sis (10) Constipation: Add Dulcolax (11) Multifocal lung consolidation: Seen on CT chest done today. Not seen on CT scan done in July 2022. Cannot rule out underlying pneumonia though patient does not give any history. Concerns for eosinophilic pneumonitis, Boop. 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 Not on any immunosuppressive therapy currently. Eosinophil levels normal on CBC today. Sputum culture has been requested. reviewed. Noted normal jimbo. Wound culture recently showed MRSA, Pseudomonas, Enterococcus. Empiric antibiotics have been stopped. Plan Dysuria: Collect UA Hypertension: Goal blood pressure less than 140/90 mmHg. Holding off on losartan given CHENCHO and hyperkalemia. If needed will plan to add amlodipine. CODE STATUS: Full code. Cardiac diet, fluid restriction Protonix for PUD prophylaxis Heparin 5000 every 12 hourly for DVT prophylaxis Attestations Medical Necessity Statement*: Continue admission for assessment management of decompensated CHF and High MDM includes amount and/or complexity of data reviewed/ordered [ resulted lab(s)/test(s), ordered lab(s)/test(s), independent test interpretation and other healthcare professional discussion] as documented Diagnoses CHF (congestive heart failure) I50.9 Heart failure chronicity: acute on chronic Heart failure type: unspecified Hypoglycemia E16.2 CHENCHO (acute kidney injury) N17.9 Hyperkalemia E87.5 Anasarca R60.1 Cardiomyopathy I42.9 Moderate mitral regurgitation I34.0 Type 2 diabetes, controlled, with neuropathy E11.40 Malignant pleural effusion J91.0 Constipation K59.00 Multifocal lung consolidation J18.1
[2023-02-12 20:28] LABS: Glucose Point of Care 167 mg/dL (70-110)
[2023-02-12 21:19] LABS: Blood Urine Neg (Negative); Glucose Urine UA Norm (Normal); Ketones Urine 1+ (Negative); Nitrate Urine Negative (Negative); Protein Urine Trace (Negative); Specific Gravity, Urine 1.015 (1.005-1.030); Urine Appearance Clear (CLEAR); Urine Color Yellow (Yellow); pH Urine 5 (5-7)
[2023-02-12 21:20] LABS: Add Urine Culture? No; Add Urine Microscopic? YES; Bacteria Urine TRACE /hpf; Bilirubin Urine 1+ (Negative); Leukocyte Esterase Urine Negative (Negative); Mucus Urine 2+ /hpf; Urobilinogen Urine 4 mg/dL (Negative)
[2023-02-13] VITALS (20 sets, daily range): BP systolic 137–161; BP diastolic 62–77; PULSE 60–82; RESP 13–22; TEMP 36.1–36.7; O2SAT 94–100
[2023-02-13] MEDS: oxyCODONE 5 mg IR Tab/Cap PO (04:28)
[2023-02-13] MEDS: heparin 5,000 unit/mL INJ 1 mL 5000 UNIT SUBCUT ×2 (04:29→17:32)
[2023-02-13] MEDS: sucralfate 1 gm Tablet PO ×4 (04:29→21:12)
[2023-02-13] MEDS: tamsulosin 0.4 mg Capsule PO (04:38)
[2023-02-13] MEDS: pantoprazole DR 40 mg Tablet PO (04:39)
[2023-02-13 04:47] LABS: Basophils # 0.1 10^3/uL (0.0-0.1); Basophils % 1.6 %; Eosinophils # 0.3 10^3/uL (0.0-0.8); Eosinophils % 6.6 %; Hematocrit 32.6 % (37-53); Lymphocytes % 23.7 %; Mean Corpuscular HGB Conc 28.2 g/dL (30-55); Mean Corpuscular Hemoglobin 25.8 pg (27-33); Mean Corpuscular Volume 91.3 fl (82-101); Mean Platelet Volume 11.2 fL (7.4-10.4); Monocytes # 0.3 10^3/uL (0.2-0.9); Monocytes % 7.5 %; Neutrophils # 2.63 10^3/uL (1.8-7.7); Neutrophils % 60.1 %; Nucleated Red Blood Cells % 0 %; Platelet Count 139 10^3/cmm (157-399); Red Blood Count 3.57 10^6/uL (3.85-5.65); White Blood Count 4.38 10^3/uL (3.29-11.43)
[2023-02-13 04:59] LABS: Vitamin B12 (Cobalamin) 399 pg/mL (200-1100)
[2023-02-13 05:07] LABS: Alanine Aminotransferase 11 U/L (0-41); Albumin Level 2.7 g/dL (3.5-5.2); Alkaline Phosphatase 255 U/L (40-130); Anion Gap 8.4 (5-19); Aspartate Amino Transferase 19 U/L (0-40); Blood Urea Nitrogen 24 mg/dL (8-23); Calcium 8.3 mg/dL (8.5-10.5); Carbon Dioxide 34 mmol/L (22-29); Chloride 104 mmol/L (98-107); Globulin 4.5 g/dL (1.3-4.6); Glomerular Filtration Rate 59.9 mL/min (90-130); Glucose 128 mg/dL (65-115); Osmolality Calculated 298 mOsm/kg (285-295); Potassium 5.4 mmol/L (3.5-5.1); Sodium 141 mmol/L (136-145); Total Bilirubin 0.4 mg/dL (0.15-1.2); Total Protein 7.2 g/dL (6.6-8.7)
[2023-02-13] MEDS: acetaminophen 325 mg Tablet 650 MG PO ×2 (06:05→21:10)
[2023-02-13 06:28] LABS: Glucose Point of Care 141 mg/dL (70-110)
--- NOTE | 2023-02-13 07:36 | PC.NURSE ---
Spoke with regarding patients complaints of back and shoulder pain requesting for his pain medication be increased. The patients oxy was decreased from 10mg to 5mg due to lethargy on 02/11. The patient states it is not relieving his pain at the lower dose. Per ok to increase pain medication back to 10mg.
[2023-02-13] MEDS: gabapentin 300 mg Capsule PO ×4 (08:57→21:11)
[2023-02-13] MEDS: FUROsemide 10 mg/mL SDV 10mL 80 MG IVP ×2 (08:57→15:57)
[2023-02-13] MEDS: magnesium hydroxide 30 mL UDC PO (08:58)
[2023-02-13] MEDS: lactulose oral liq 20 gm/30 mL UDC 10 GM PO ×3 (08:58→21:12)
[2023-02-13] MEDS: insulin lispro 100 unit/1 mL SUBCUT ×3 (08:58→17:32)
[2023-02-13] MEDS: oxyCODONE 5 mg IR Tab/Cap 10 MG PO ×2 (10:36→18:52)
[2023-02-13 11:32] LABS: Glucose Point of Care 169 mg/dL (70-110)
[2023-02-13 17:10] LABS: Glucose Point of Care 179 mg/dL (70-110)
--- NOTE | 2023-02-13 19:08 | PM.PN ---
Subjective Subjective: He is not feeling well. He has been getting dyspneic particular with exertion. Feeling tired. Vitals/I&O/Wt Last Vital Signs Temp 97.6 F 02/13/23 08:00 Pulse 70 02/13/23 16:00 Resp 15 02/13/23 18:52 BP 153/70 02/13/23 16:00 Pulse Ox 96 02/13/23 18:52 O2 Del Method Nasal Cannula 02/13/23 17:43 O2 Flow Rate 2 02/13/23 17:43 02/13/23 02/13/23 02/13/23 06:59 14:59 22:59 Intake Total 180 / 2080 880 / 880 440 / 1320 Output Total 550 / 2640 2475 / 2475 1900 / 4375 Balance -370 / -560 -1595 / -1595 -1460 / -3055 Weight last 48 hrs Weight 99.79 kg Physical Exam Narrative: Accompanied by his . Sitting up at edge of bed. Const: COMMON NORMALS: patient oriented x3 and alert GENERAL APPEARANCE: cooperative ORIENTATION/CONSCIOUSNESS: Yes awake HENMT: COMMON NORMALS: oropharynx normal Neck/C-Spine: COMMON NORMALS: no JVD Resp: COMMON NORMALS: normal respiratory effort and clear to auscultation bilaterally AUSCULTATION: clear to auscultation bilaterally Cardio: COMMON NORMALS: no JVD, regular rhythm, S1 normal heart sound present, S2 normal heart sound present and No murmurs present (Cardio) RHYTHM: regular rhythm HEART SOUNDS: S1 normal heart sound present and S2 normal heart sound present GI: COMMON NORMALS: Normal to inspection, nondistended, normoactive bowel sounds present, Soft to palpation and non-tender PALPATION: Yes Soft to palpation Extremity: COMMON NORMALS: no joint enlargement OTHER: 2+ edema Extending to thighs. Distal edema of his arms/hands. Neuro: COMMON NORMALS: patient oriented x3 and moves all extremities SENSORIUM/ORIENTATION: Yes alert Skin: COMMON NORMALS: no rashes or lesions noted GENERAL SKIN EXAM: no rashes or lesions noted Data 02/13/23 04:23 02/13/23 04:23 Micro: Microbiology 02/10/23 22:30 Gram Stain - Final Sputum - Expectorated Sputum Sputum Culture - Final A&P Assessment and plan (1) CHF (congestive heart failure): Discussed with him and his adding second dose of diuretic this afternoon additional IV 80 mg Lasix. They are agreeable. Follow-up BRIAN. Reviewed potassium, noted 5.4. Reviewed kidney function, noted BUN 24, creatinine 1.2. Follow-up electrolytes, at risk of electro abnormality, although has been hyperkalemic. Discussed we will change diet to low potassium. Monitor on telemetry. Discussed with case management in rounds Again noted fluid overload with decompensated CHF. 2+ lower extremity edema up to thighs. Edema of distal arms. Stop IVF. Continue IV diuresis. Monitor BRIAN. Discussed risk of kidney injury. Reviewed BUN, creatinine, electrolytes. Potassium noted on higher side. Changed to low potassium diet. Repeat chemistry requested. Discussed Fluid restriction up to 1500 cc. Bledsoe catheter. Requiring low rate oxygen supplementation. So far plans have been to return to go home, he has not been getting up and has been weak. Spent last several days in the chair. Will obtain PT assessment. Qualifiers: Heart failure chronicity: acute on chronic Heart failure type: unspecified Qualified Code(s): I50.9 - Heart failure, unspecified (2) Hypoglycemia: Repeat blood glucose, hypoglycemia resolved. Encourage oral intake. Holding Lantus. Sliding scale as needed. (3) CHENCHO (acute kidney injury): At risk of worsening renal dysfunction, discussed with him and his . Reviewed renal function. Reviewed electrolytes. Reviewed acid-base parameters. Reviewed kidney function, has been noted to be improving, but is also having persistent/worsened CHF/fluid overload. CK WNL. Continue diuresis. Stop IVF. Reassess renal function. Hold off on losartan for now. CT abdomen pelvis negative for renal obstruction. No urine eosinophils Prerenal renal failure. Cannot exclude cardiorenal, although blood pressure has not been soft in the hospital, but has been off of ARB. (4) Hyperkalemia: Changed to low potassium diet. Telemetry. Diuresis escalated. Noted hyperkalemia 5.4. Recheck chemistry. (5) Anasarca: As above (6) Cardiomyopathy: (7) Moderate mitral regurgitation: (8) Type 2 diabetes, controlled, with neuropathy: Most recent A1c of 6.3. Lantus has been stopped. 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 Follow-up with oncology. Patient currently on room air. Hold off on thoracentesis for now. Being worked up as an outpatient to diagnose primary. CT scan done today does show patchy upper lobe infiltrates bilaterally right more than left, splenomegaly, normal liver and gallbladder along with pancreas, no hydronephrosis (10) Constipation: Add Dulcolax (11) Multifocal lung consolidation: Seen on CT chest done today. Not seen on CT scan done in July 2022. Cannot rule out underlying pneumonia though patient does not give any history. Concerns for eosinophilic pneumonitis, Boop. 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 Not on any immunosuppressive therapy currently. Eosinophil levels normal on CBC today. Sputum culture has been requested. reviewed. Noted normal jimbo. Wound culture recently showed MRSA, Pseudomonas, Enterococcus. Empiric antibiotics have been stopped. Plan Dysuria: Reviewed UA, not suggestive of UTI. We will add some Pyridium as needed as discussed for symptomatic relief. Hypertension: Goal blood pressure less than 140/90 mmHg. Holding off on losartan given CHENCHO and hyperkalemia. If needed will plan to add amlodipine. CODE STATUS: Full code. Cardiac diet, fluid restriction Protonix for PUD prophylaxis Heparin 5000 every 12 hourly for DVT prophylaxis Attestations Medical Necessity Statement*: Continue admission for assessment and management of decompensated CHF. Diagnoses CHF (congestive heart failure) I50.9 Heart failure chronicity: acute on chronic Heart failure type: unspecified Hypoglycemia E16.2 CHENCHO (acute kidney injury) N17.9 Hyperkalemia E87.5 Anasarca R60.1 Cardiomyopathy I42.9 Moderate mitral regurgitation I34.0 Type 2 diabetes, controlled, with neuropathy E11.40 Malignant pleural effusion J91.0 Constipation K59.00 Multifocal lung consolidation J18.1
[2023-02-13 20:02] LABS: Glucose Point of Care 140 mg/dL (70-110)
[2023-02-13] MEDS: diphenhydrAMINE 50 mg Capsule PO (21:11)
--- NOTE | 2023-02-13 21:29 | PC.NURSE ---
Patient requested medication to help him sleep, Dr notified, order for 50 mg benadryl at bedtime.
[2023-02-14] VITALS (31 sets, daily range): BP systolic 123–154; BP diastolic 60–80; PULSE 62–74; RESP 14–35; TEMP 36.7–37.2; O2SAT 93–100
[2023-02-14] MEDS: oxyCODONE 5 mg IR Tab/Cap 10 MG PO ×4 (01:54→23:34)
[2023-02-14 04:43] LABS: Basophils # 0.1 10^3/uL (0.0-0.1); Basophils % 1.8 %; Eosinophils # 0.3 10^3/uL (0.0-0.8); Eosinophils % 7.6 %; Hematocrit 30.1 % (37-53); Lymphocytes # 1.1 10^3/uL (0.8-4.8); Lymphocytes % 28.2 %; Mean Corpuscular HGB Conc 29.2 g/dL (30-55); Mean Corpuscular Volume 89.1 fl (82-101); Mean Platelet Volume 11.1 fL (7.4-10.4); Monocytes # 0.3 10^3/uL (0.2-0.9); Monocytes % 8.4 %; Neutrophils % 53.5 %; Nucleated Red Blood Cells % 0 %; Platelet Count 128 10^3/cmm (157-399); Red Blood Count 3.38 10^6/uL (3.85-5.65); Red Cell Distribution Width 17.3 % (12.1-15.1); White Blood Count 3.93 10^3/uL (3.29-11.43)
[2023-02-14 05:01] LABS: Alanine Aminotransferase 31 U/L (0-41); Albumin Level 2.5 g/dL (3.5-5.2); Alkaline Phosphatase 341 U/L (40-130); Aspartate Amino Transferase 67 U/L (0-40); Blood Urea Nitrogen 32 mg/dL (8-23); Calcium 8.3 mg/dL (8.5-10.5); Carbon Dioxide 38 mmol/L (22-29); Chloride 98 mmol/L (98-107); Creatinine Clr Calc Pharmacy 78.7072; Globulin 4.3 g/dL (1.3-4.6); Glomerular Filtration Rate 73.9 mL/min (90-130); Glucose 133 mg/dL (65-115); Osmolality Calculated 295 mOsm/kg (285-295); Sodium 138 mmol/L (136-145); Total Bilirubin 0.5 mg/dL (0.15-1.2); Total Protein 6.8 g/dL (6.6-8.7)
[2023-02-14] MEDS: sucralfate 1 gm Tablet PO ×4 (05:09→21:27)
[2023-02-14] MEDS: heparin 5,000 unit/mL INJ 1 mL 5000 UNIT SUBCUT ×2 (05:09→16:47)
--- NOTE | 2023-02-14 06:13 | PC.NURSE ---
walked into patient room found pt naked on chair. patient pulled his access to his port in right chest, took O2, telemetry, gown, and pulse ox off and it was laying in floor. patient stated that something was stinging him. Patient was cleaned up, redressed, and port access reestablished. Patient was reclining in chair, call light in reach.
[2023-02-14] MEDS: tamsulosin 0.4 mg Capsule PO (06:46)
[2023-02-14] MEDS: pantoprazole DR 40 mg Tablet PO (06:46)
[2023-02-14 07:40] LABS: Glucose Point of Care 136 mg/dL (70-110)
[2023-02-14] MEDS: FUROsemide 10 mg/mL SDV 10mL 80 MG IVP ×2 (08:39→15:19)
[2023-02-14] MEDS: magnesium hydroxide 30 mL UDC PO (08:39)
[2023-02-14] MEDS: gabapentin 300 mg Capsule PO ×4 (08:39→21:27)
[2023-02-14] MEDS: lactulose oral liq 20 gm/30 mL UDC 10 GM PO ×3 (08:39→21:27)
--- NOTE | 2023-02-14 08:52 | PC.SOCIAL ---
IMM Update pg 2 of IMM updated and reviewed w/ patient. Copy provided and Copy in chart dated and initialed.
[2023-02-14 11:28] LABS: Glucose Point of Care 159 mg/dL (70-110)
[2023-02-14] MEDS: insulin lispro 100 unit/1 mL SUBCUT ×2 (13:10→21:28)
[2023-02-14 17:20] LABS: Glucose Point of Care 130 mg/dL (70-110)
--- NOTE | 2023-02-14 18:12 | P.PN_ITS ---
Subjective Subjective: He feels he is improving. Starting to feel much better. Legs are still quite edematous. Vitals/I&O/Wt Last Vital Signs Temp 98.5 F 02/14/23 16:00 Pulse 68 02/14/23 16:00 Resp 18 02/14/23 16:47 BP 142/80 02/14/23 16:00 Pulse Ox 99 02/14/23 16:47 O2 Del Method Nasal Cannula 02/14/23 16:00 O2 Flow Rate 2 02/14/23 08:00 02/14/23 02/14/23 02/14/23 06:59 14:59 22:59 Intake Total 580 / 580 Output Total 825 / 5550 875 / 875 300 / 1175 Balance -825 / -3990 -295 / -295 -300 / -595 Weight last 48 hrs Weight 99.847 kg Weight 99.79 kg Physical Exam Narrative: Sitting up in the chair. Const: COMMON NORMALS: patient oriented x3 and alert GENERAL APPEARANCE: cooperative ORIENTATION/CONSCIOUSNESS: Yes awake HENMT: COMMON NORMALS: oropharynx normal Neck/C-Spine: COMMON NORMALS: no JVD Resp: COMMON NORMALS: normal respiratory effort and clear to auscultation bilaterally AUSCULTATION: clear to auscultation bilaterally Cardio: COMMON NORMALS: no JVD, regular rhythm, S1 normal heart sound present, S2 normal heart sound present and No murmurs present (Cardio) RHYTHM: regular rhythm HEART SOUNDS: S1 normal heart sound present and S2 normal heart sound present GI: COMMON NORMALS: Normal to inspection, nondistended, normoactive bowel sounds present, Soft to palpation and non-tender PALPATION: Yes Soft to palpation Extremity: COMMON NORMALS: no joint enlargement OTHER: 2+ edema Extending to lower thighs. Neuro: COMMON NORMALS: patient oriented x3 and moves all extremities SENSORIUM/ORIENTATION: Yes alert Skin: COMMON NORMALS: no rashes or lesions noted GENERAL SKIN EXAM: no rashes or lesions noted Data 02/14/23 04:02 02/14/23 04:02 Micro: Microbiology 02/10/23 15:35 Blood Culture - Preliminary Blood A&P Assessment and plan (1) CHF (congestive heart failure): Reviewed CBC, reviewed electrolytes, potassium noted with improvement down to 5. Reviewed renal function, BUN 32, creatinine 1. Has been tolerating diuresis well so far. In negative balance. Continue with twice daily IV diuretics as he is still in CHF/overload. Still bilateral lower extremity edema.. Reassess renal function. Continue low potassium diet. Monitor on telemetry. Discussed with director of casework. Again noted fluid overload with decompensated CHF. 2+ lower extremity edema up to thighs. Edema of distal arms. Stop IVF. Continue IV diuresis. Monitor BRIAN. Discussed risk of kidney injury. Reviewed BUN, creatinine, electrolytes. Potassium noted on higher side. Changed to low potassium diet. Repeat chemistry requested. Discussed Fluid restriction up to 1500 cc. Bledsoe catheter. Requiring low rate oxygen supplementation. So far plans have been to return to go home, he has not been getting up and has been weak. Spent last several days in the chair. Will obtain PT assessment. Qualifiers: Heart failure chronicity: acute on chronic Heart failure type: unspecified Qualified Code(s): I50.9 - Heart failure, unspecified (2) Hypoglycemia: Reviewed Accu-Cheks. Resolved. Repeat blood glucose, hypoglycemia resolved. Encourage oral intake. Holding Lantus. Sliding scale as needed. (3) CHENCHO (acute kidney injury): At risk of worsening renal dysfunction, discussed with him and his . Reviewed renal function. Reviewed electrolytes. Reviewed acid-base parameters. Reviewed kidney function, has been noted to be improving, but is also having persistent/worsened CHF/fluid overload. CK WNL. Continue diuresis. Stop IVF. Reassess renal function. Hold off on losartan for now. CT abdomen pelvis negative for renal obstruction. No urine eosinophils Prerenal renal failure. Cannot exclude cardiorenal, although blood pressure has not been soft in the hospital, but has been off of ARB. (4) Hyperkalemia: Reviewed potassium, noted improving. Changed to low potassium diet. Telemetry. Diuresis escalated. Noted hyperkalemia 5.4. Recheck chemistry. (5) Anasarca: As above (6) Cardiomyopathy: (7) Moderate mitral regurgitation: (8) Type 2 diabetes, controlled, with neuropathy: Most recent A1c of 6.3. Lantus has been stopped. 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 Follow-up with oncology. Patient currently on room air. Hold off on thoracentesis for now. Being worked up as an outpatient to diagnose primary. CT scan done today does show patchy upper lobe infiltrates bilaterally right more than left, splenomegaly, normal liver and gallbladder along with pancreas, no hydronephrosis (10) Constipation: Add Dulcolax (11) Multifocal lung consolidation: Seen on CT chest done today. Not seen on CT scan done in July 2022. Cannot rule out underlying pneumonia though patient does not give any history. Concerns for eosinophilic pneumonitis, Boop. 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 Not on any immunosuppressive therapy currently. Eosinophil levels normal on CBC today. Sputum culture has been requested. reviewed. Noted normal jimbo. Wound culture recently showed MRSA, Pseudomonas, Enterococcus. Empiric antibiotics have been stopped. Plan Dysuria: Discussed with him regarding UA. Discussed started pyridium. Noted mild thrombocytopenia, recheck platelet level. CBC requested. Hypertension: Goal blood pressure less than 140/90 mmHg. Holding off on losartan given CHENCHO and hyperkalemia. If needed will plan to add amlodipine. CODE STATUS: Full code. Cardiac diet, fluid restriction Protonix for PUD prophylaxis Heparin 5000 every 12 hourly for DVT prophylaxis Attestations Medical Necessity Statement*: Continue admission for assessment and management of decompensated CHF in a gentleman after CHENCHO. Diagnoses CHF (congestive heart failure) I50.9 Heart failure chronicity: acute on chronic Heart failure type: unspecified Hypoglycemia E16.2 CHENCHO (acute kidney injury) N17.9 Hyperkalemia E87.5 Anasarca R60.1 Cardiomyopathy I42.9 Moderate mitral regurgitation I34.0 Type 2 diabetes, controlled, with neuropathy E11.40 Malignant pleural effusion J91.0 Constipation K59.00 Multifocal lung consolidation J18.1
[2023-02-14 21:00] LABS: Glucose Point of Care 201 mg/dL (70-110)
[2023-02-14] MEDS: LORazepam 0.5 mg Tablet PO (21:27)
[2023-02-15] VITALS (27 sets, daily range): BP systolic 128–138; BP diastolic 58–75; PULSE 0–72; RESP 7–26; TEMP 36.7–37.1; O2SAT 91–100
--- NOTE | 2023-02-15 01:58 | PC.NURSE ---
Inder Caldwell room 108, He is needing something to help him sleep. Last night I gave him 50mg of benadryl and it did not work, I think he had an adverse reaction because he became confused and a little agitated and pulled everything off including his access to his port: note to DR, Ativan 0.[address] order was administered.
[2023-02-15 05:05] LABS: Basophils # 0.1 10^3/uL (0.0-0.1); Basophils % 1.8 %; Eosinophils # 0.3 10^3/uL (0.0-0.8); Eosinophils % 7.4 %; Hematocrit 32.1 % (37-53); Lymphocytes # 1.1 10^3/uL (0.8-4.8); Lymphocytes % 28.3 %; Mean Corpuscular HGB Conc 28.3 g/dL (30-55); Mean Corpuscular Volume 88.2 fl (82-101); Mean Platelet Volume 10.8 fL (7.4-10.4); Monocytes # 0.4 10^3/uL (0.2-0.9); Monocytes % 9.2 %; Neutrophils # 2.08 10^3/uL (1.8-7.7); Nucleated Red Blood Cells % 0 %; Platelet Count 139 10^3/cmm (157-399); Red Blood Count 3.64 10^6/uL (3.85-5.65); Red Cell Distribution Width 17.4 % (12.1-15.1); White Blood Count 3.92 10^3/uL (3.29-11.43)
[2023-02-15 05:23] LABS: Alanine Aminotransferase 33 U/L (0-41); Albumin Level 2.7 g/dL (3.5-5.2); Alkaline Phosphatase 384 U/L (40-130); Anion Gap 10.5 (5-19); Aspartate Amino Transferase 49 U/L (0-40); Blood Urea Nitrogen 32 mg/dL (8-23); Calcium 8.5 mg/dL (8.5-10.5); Carbon Dioxide 36 mmol/L (22-29); Chloride 95 mmol/L (98-107); Globulin 4.5 g/dL (1.3-4.6); Glomerular Filtration Rate 83.4 mL/min (90-130); Glucose 123 mg/dL (65-115); Osmolality Calculated 292 mOsm/kg (285-295); Potassium 4.5 mmol/L (3.5-5.1); Sodium 137 mmol/L (136-145); Total Bilirubin 0.6 mg/dL (0.15-1.2); Total Protein 7.2 g/dL (6.6-8.7)
[2023-02-15] MEDS: tamsulosin 0.4 mg Capsule PO (05:27)
[2023-02-15] MEDS: pantoprazole DR 40 mg Tablet PO (05:27)
[2023-02-15] MEDS: heparin 5,000 unit/mL INJ 1 mL 5000 UNIT SUBCUT ×2 (05:27→17:35)
[2023-02-15] MEDS: sucralfate 1 gm Tablet PO ×4 (05:27→23:23)
[2023-02-15 06:34] LABS: Glucose Point of Care 145 mg/dL (70-110)
[2023-02-15] MEDS: magnesium hydroxide 30 mL UDC PO (08:29)
[2023-02-15] MEDS: insulin lispro 100 unit/1 mL SUBCUT ×4 (08:29→20:42)
[2023-02-15] MEDS: lactulose oral liq 20 gm/30 mL UDC 10 GM PO (08:29)
[2023-02-15] MEDS: FUROsemide 10 mg/mL SDV 10mL 80 MG IVP ×2 (08:29→15:08)
[2023-02-15] MEDS: gabapentin 300 mg Capsule PO ×4 (08:29→20:06)
[2023-02-15] MEDS: oxyCODONE 5 mg IR Tab/Cap 10 MG PO ×3 (09:14→23:31)
[2023-02-15 12:26] LABS: Glucose Point of Care 153 mg/dL (70-110)
--- NOTE | 2023-02-15 13:53 | PC.SOCIAL ---
IMM Updated Updated pt on IMM. No questions voiced. Provided pt a copy. Initialed, dated, & timed copy in chart.
[2023-02-15 17:21] LABS: Glucose Point of Care 165 mg/dL (70-110)
--- NOTE | 2023-02-15 18:51 | PM.PN ---
Subjective Subjective: He is continuing to improve. Denies chest pain. Breathing has been improving. Still pronounced edema of lower extremities but has been gradually improving, resolving edema of thighs. No complaint of dysuria. Vitals/I&O/Wt Last Vital Signs Temp 98.3 F 02/15/23 15:58 Pulse 69 02/15/23 15:58 Resp 16 02/15/23 17:34 BP 135/71 02/15/23 15:58 Pulse Ox 100 02/15/23 15:58 O2 Del Method Nasal Cannula 02/15/23 08:00 O2 Flow Rate 2 02/15/23 08:00 02/15/23 02/15/23 02/15/23 06:59 14:59 22:59 Intake Total 200 / 1220 660 / 660 120 / 780 Output Total 550 / 2365 750 / 750 930 / 1680 Balance -350 / -1145 -90 / -90 -810 / -900 Weight last 48 hrs Weight 99.847 kg Weight 99.847 kg Physical Exam Narrative: Sitting up in the chair. Const: COMMON NORMALS: patient oriented x3 and alert GENERAL APPEARANCE: cooperative ORIENTATION/CONSCIOUSNESS: Yes awake HENMT: COMMON NORMALS: oropharynx normal Neck/C-Spine: COMMON NORMALS: no JVD Resp: COMMON NORMALS: normal respiratory effort and clear to auscultation bilaterally AUSCULTATION: clear to auscultation bilaterally Cardio: COMMON NORMALS: no JVD, regular rhythm, S1 normal heart sound present, S2 normal heart sound present and No murmurs present (Cardio) RHYTHM: regular rhythm HEART SOUNDS: S1 normal heart sound present and S2 normal heart sound present GI: COMMON NORMALS: Normal to inspection, nondistended, normoactive bowel sounds present, Soft to palpation and non-tender PALPATION: Yes Soft to palpation Extremity: COMMON NORMALS: no joint enlargement OTHER: 2+ edema BL LE. Resolved edema of lower thighs. Neuro: COMMON NORMALS: patient oriented x3 and moves all extremities SENSORIUM/ORIENTATION: Yes alert Skin: COMMON NORMALS: no rashes or lesions noted GENERAL SKIN EXAM: no rashes or lesions noted Data 02/15/23 04:28 02/15/23 04:28 Micro: Microbiology 02/10/23 15:30 Blood Culture - Final Blood NO GROWTH AFTER 5 DAYS A&P Assessment and plan (1) CHF (congestive heart failure): Continue to gradually improve edema. Resolving edema of thighs. Still significant edema of bilateral lower extremities, ankles and feet. Reviewed chemistry, electrolytes, BUN, creatinine. Discussed with him. Reviewed BRIAN. In negative balance. Continue Lasix IV 80 mg twice daily as per discussion with him. In case continues to improve, consideration of possibly return home tomorrow. Continue low potassium diet. Monitor on telemetry. Discussed with medical case worker in rounds. May need O2. Home O2 eval prior to discharge. Again noted fluid overload with decompensated CHF. 2+ lower extremity edema up to thighs. Edema of distal arms. Stop IVF. Continue IV diuresis. Monitor BRIAN. Discussed risk of kidney injury. Reviewed BUN, creatinine, electrolytes. Potassium noted on higher side. Changed to low potassium diet. Repeat chemistry requested. Discussed Fluid restriction up to 1500 cc. Bledsoe catheter. Requiring low rate oxygen supplementation. So far plans have been to return to go home, he has not been getting up and has been weak. Spent last several days in the chair. Will obtain PT assessment. Qualifiers: Heart failure chronicity: acute on chronic Heart failure type: unspecified Qualified Code(s): I50.9 - Heart failure, unspecified (2) Hypoglycemia: So far without recurrence. Reviewed Accu-Cheks. Glucose at target. Encourage oral intake. Holding Lantus. Sliding scale as needed. (3) CHENCHO (acute kidney injury): Electrolytes. Reviewed BUN, reviewed creatinine. Acid-base. Reassess chemistry while diuresing. Requested. Hold off on losartan for now. CT abdomen pelvis negative for renal obstruction. No urine eosinophils Prerenal renal failure. Cannot exclude cardiorenal, although blood pressure has not been soft in the hospital, but has been off of ARB. (4) Hyperkalemia: Reviewed potassium, noted improving. Changed to low potassium diet. Telemetry. Diuresis escalated. Noted hyperkalemia 5.4. Recheck chemistry. (5) Anasarca: As above (6) Cardiomyopathy: (7) Moderate mitral regurgitation: (8) Type 2 diabetes, controlled, with neuropathy: Most recent A1c of 6.3. Lantus has been stopped. 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 Follow-up with oncology. Patient currently on room air. Hold off on thoracentesis for now. Being worked up as an outpatient to diagnose primary. CT scan done today does show patchy upper lobe infiltrates bilaterally right more than left, splenomegaly, normal liver and gallbladder along with pancreas, no hydronephrosis (10) Constipation: Dulcolax (11) Multifocal lung consolidation: Seen on CT chest done today. Not seen on CT scan done in July 2022. Cannot rule out underlying pneumonia though patient does not give any history. Concerns for eosinophilic pneumonitis, Boop. 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 Not on any immunosuppressive therapy currently. Eosinophil levels normal on CBC today. Sputum culture has been requested. reviewed. Noted normal jimbo. Wound culture recently showed MRSA, Pseudomonas, Enterococcus. Empiric antibiotics have been stopped. Plan Dysuria: Discussed with him regarding UA. Pyridium. Noted mild thrombocytopenia, recheck platelet level. Reviewed CBC. Noted improving. Repeat CBC requested. Hypertension: Goal blood pressure less than 140/90 mmHg. Holding off on losartan given CHENCHO and hyperkalemia. If needed will plan to add amlodipine. CODE STATUS: Full code. Cardiac diet, fluid restriction Protonix for PUD prophylaxis Heparin 5000 every 12 hourly for DVT prophylaxis Attestations Medical Necessity Statement*: Continue admission for assessment and management of decompensated CHF in a gentleman after CHENCHO. Diagnoses CHF (congestive heart failure) I50.9 Heart failure chronicity: acute on chronic Heart failure type: unspecified Hypoglycemia E16.2 CHENCHO (acute kidney injury) N17.9 Hyperkalemia E87.5 Anasarca R60.1 Cardiomyopathy I42.9 Moderate mitral regurgitation I34.0 Type 2 diabetes, controlled, with neuropathy E11.40 Malignant pleural effusion J91.0 Constipation K59.00 Multifocal lung consolidation J18.1
[2023-02-15] MEDS: diphenhydrAMINE 50 mg Capsule PO (20:07)
[2023-02-15] MEDS: acetaminophen 325 mg Tablet 650 MG PO (20:07)
[2023-02-15 20:35] LABS: Glucose Point of Care 192 mg/dL (70-110)
[2023-02-16] VITALS (9 sets, daily range): BP systolic 137–151; BP diastolic 65–80; PULSE 55–82; RESP 14–19; TEMP 36.4–37.1; O2SAT 85–100
[2023-02-16 04:55] LABS: Basophils # 0.1 10^3/uL (0.0-0.1); Basophils % 2.1 %; Eosinophils # 0.3 10^3/uL (0.0-0.8); Hematocrit 32.6 % (37-53); Lymphocytes # 1.2 10^3/uL (0.8-4.8); Lymphocytes % 32.4 %; Mean Corpuscular HGB Conc 28.8 g/dL (30-55); Mean Corpuscular Hemoglobin 25.4 pg (27-33); Mean Corpuscular Volume 88.1 fl (82-101); Mean Platelet Volume 11.1 fL (7.4-10.4); Monocytes # 0.4 10^3/uL (0.2-0.9); Monocytes % 9.6 %; Neutrophils # 1.79 10^3/uL (1.8-7.7); Neutrophils % 47.6 %; Nucleated Red Blood Cells % 0 %; Platelet Count 142 10^3/cmm (157-399); White Blood Count 3.76 10^3/uL (3.29-11.43)
[2023-02-16] MEDS: tamsulosin 0.4 mg Capsule PO (05:05)
[2023-02-16] MEDS: heparin 5,000 unit/mL INJ 1 mL 5000 UNIT SUBCUT (05:05)
[2023-02-16] MEDS: sucralfate 1 gm Tablet PO ×2 (05:05→09:41)
[2023-02-16] MEDS: pantoprazole DR 40 mg Tablet PO (05:05)
[2023-02-16 05:17] LABS: Alanine Aminotransferase 24 U/L (0-41); Alkaline Phosphatase 341 U/L (40-130); Anion Gap 8.2 (5-19); Aspartate Amino Transferase 24 U/L (0-40); Blood Urea Nitrogen 35 mg/dL (8-23); Calcium 8.7 mg/dL (8.5-10.5); Carbon Dioxide 40 mmol/L (22-29); Chloride 95 mmol/L (98-107); Creatinine Clr Calc Pharmacy 78.7294; Globulin 4.6 g/dL (1.3-4.6); Glomerular Filtration Rate 73.9 mL/min (90-130); Glucose 153 mg/dL (65-115); Osmolality Calculated 299 mOsm/kg (285-295); Potassium 4.2 mmol/L (3.5-5.1); Sodium 139 mmol/L (136-145); Total Bilirubin 0.4 mg/dL (0.15-1.2); Total Protein 7.6 g/dL (6.6-8.7)
[2023-02-16 06:23] LABS: Glucose Point of Care 125 mg/dL (70-110)
[2023-02-16] MEDS: gabapentin 300 mg Capsule PO (09:41)
[2023-02-16] MEDS: magnesium hydroxide 30 mL UDC PO (09:41)
[2023-02-16] MEDS: lactulose oral liq 20 gm/30 mL UDC 10 GM PO (09:41)
[2023-02-16] MEDS: oxyCODONE 5 mg IR Tab/Cap 10 MG PO (09:46)
[2023-02-16] MEDS: FUROsemide 40 mg Tablet PO (09:46)
--- NOTE | 2023-02-16 10:44 | PC.SOCIAL ---
IMM Update pg 2 of [facility] udpated and reviewed w/ patient. Copy provided and copy in chart dated, and initialed.
[2023-02-16 11:03] LABS: Glucose Point of Care 203 mg/dL (70-110)
--- NOTE | 2023-02-16 11:34 | P.DS_ITS ---
Discharge Providers Date of Admission: 02/10/23 16:17 Date of Discharge: February 16, 2023 Attending Provider at Admission: Tejinder Lees MD Attending Provider at Discharge: Rinku Rodriguez Primary Care Provider: Ramirez Sheriff MD Diagnoses at Discharge Discharge Diagnosis (1) CHF (congestive heart failure): Status: Acute Qualifiers: Heart failure chronicity: acute on chronic Heart failure type: unspecified Qualified Code(s): I50.9 - Heart failure, unspecified (2) Hypoglycemia: Status: Acute (3) CHENCHO (acute kidney injury): Status: Acute (4) Hyperkalemia: Status: Acute (5) Anasarca: Status: Acute (6) Cardiomyopathy: Status: Acute (7) Moderate mitral regurgitation: Status: Acute (8) Type 2 diabetes, controlled, with neuropathy: Status: Acute (9) Malignant pleural effusion: Status: Acute (10) Constipation: Status: Acute (11) Multifocal lung consolidation: Status: Acute Reason for Visit Reason for Visit: weakness Brief History: Inder Caldwell is a 72 year old male with past medical history of high-grade MDS, 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 As per patient on walking 5 steps he gets out of breath.? Describes difficulty in breathing.? Denies any chest pain.? States he has been having nausea and decreased appetite.? Denies any fevers.? States he recently saw Dr. Bal earlier this week who had prescribed few blood test for evaluation of malignant cells in pleural fluid to diagnose primary malignancy.? Also states that he is due for a stress test which needs to be ordered from Dr. Rutledge's office. Hospital Course Hospital Course CT on presentation with cardiomegaly, bilateral pleural effusions, generalized anasarca. Patchy upper lobe infiltrate more pronounced in the right, infectious versus inflammatory. Initially received antibiotic but due to low suspicion of pneumonia this was discontinued. Subsequently remained afebrile, without leukocytosis or symptoms of pneumonia. Diffuse anasarca, and third spacing noted in the abdomen. Moderate retained stool/constipation. He was treated with IV diuretics, with transient CHENCHO, creatinine up to 1.3, but overall renal function with diuresis. He has been in negative balance, BRIAN -11 L but this is not likely accurate. His edema which was severe up to thighs, has significantly improved. Still edema of ankles, feet, but overall much better. He is feeling much well, without any dyspnea, although has been still requiring oxygen support 2-3 L nasal cannula. He will continue on oral Lasix 40 mg. He is asked to elevate his legs. Is asked to follow-up with wound care clinic for reassessment of ulcers of lower extremities and edema. Due to hyperkalemia during hospitalization potassium supplement, spironolactone and losartan are currently stopped. Please follow-up kidney function, potassium level. During hospitalization he was noted to be hypoglycemic due to which insulin Lantus had to be stopped. Transiently did receive D5W. Hypoglycemia has resolved. Lantus is not continued at discharge. He is asked to follow-up for reassessment with primary provider, cardiology and oncology. Physical Exam Narrative: Sitting up in the chair. In good spirits. Feeling much better. Lower extremity edema with significant improvement, still edema of the ankles and feet, but overall doing better. No difficulty breathing, still on nasal cannula. Const: COMMON NORMALS: patient oriented x3 and alert GENERAL APPEARANCE: cooperative ORIENTATION/CONSCIOUSNESS: Yes awake HENMT: COMMON NORMALS: oropharynx normal Neck/C-Spine: COMMON NORMALS: no JVD Resp: COMMON NORMALS: normal respiratory effort and clear to auscultation bilaterally AUSCULTATION: clear to auscultation bilaterally Cardio: COMMON NORMALS: no JVD, regular rhythm, S1 normal heart sound present, S2 normal heart sound present and No murmurs present (Cardio) RHYTHM: regular rhythm HEART SOUNDS: S1 normal heart sound present and S2 normal heart sound present GI: COMMON NORMALS: Normal to inspection, nondistended, normoactive bowel sounds present, Soft to palpation and non-tender PALPATION: Yes Soft to palpation Extremity: COMMON NORMALS: no joint enlargement OTHER: 1-2+ edema BL LE at ankles, feet. Resolved edema of lower thighs. Neuro: COMMON NORMALS: patient oriented x3 and moves all extremities SENSORIUM/ORIENTATION: Yes alert Skin: COMMON NORMALS: no rashes or lesions noted GENERAL SKIN EXAM: no rashes or lesions noted Discharge Data Studies Completed and Pending Completed Studies During Hospitalization Category Date Time Status CT chest abdomen pelvis [CT chest abdpel w/*[id number] Cat Scan 02/10/23 13:28 Completed ] Stat XR chest 1V portable [id number] Stat Exams 02/10/23 12:07 Completed Pending at discharge Category Date Time Status Blood Culture Stat Lab 02/10/23 15:30 Results Complete Blood Count w/Auto AM LABS Lab 02/17/23 04:00 Ordered Complete Blood Count w/Auto AM LABS Lab 02/18/23 04:00 Ordered Comprehensive Metabolic Panel AM LABS Lab 02/17/23 04:00 Ordered Comprehensive Metabolic Panel AM LABS Lab 02/18/23 04:00 Ordered Miscellaneous Test Stat Lab 02/14/23 10:00 Received Radiology Impressions Chest X-Ray 02/10/23 12:07 IMPRESSION: 1. Heart is enlarged but stable when compared to the prior exam. 2. Interval worsening of right pleuroparenchymal disease. 3. Nonspecific mild left lung base opacity favors atelectasis or pneumonia. 4. There is blunting of the left costophrenic angle, likely indicating a small pleural effusion. Chest/Abdomen/Pelvis CT 02/10/23 13:28 IMPRESSION: 1. Cardiomegaly with bilateral pleural effusions and generalized anasarca in the soft tissues likely in part secondary to volume overload. Adjacent compressive atelectasis lower lung zones more extensive on the right. 2. Patchy upper lobe infiltrate more pronounced on the right that may be infectious or inflammatory in nature. IMPRESSION: 1. No acute findings within the abdomen or pelvis. 2. Interval development of diffuse anasarca within the soft tissues and small amount of ascites presumed secondary to 3rd spacing affect including volume overload. 3. Moderate degree of retained stool throughout the large bowel. Please correlate for constipation. Laboratory Results WBC 3.76 10^3/uL (3.29-11.43) 02/16/23 04:39 RBC 3.70 10^6/uL (3.85-5.65) L 02/16/23 04:39 Hgb 9.40 g/dL (11.27-16.99) L 02/16/23 04:39 Hct 32.6 % (37-53) L 02/16/23 04:39 MCV 88.1 fl (82-101) 02/16/23 04:39 MCH 25.4 pg (27-33) L 02/16/23 04:39 MCHC 28.8 g/dL (30-55) L 02/16/23 04:39 RDW 17.0 % (12.1-15.1) H 02/16/23 04:39 Plt Count 142 10^3/cmm (157-399) L 02/16/23 04:39 MPV 11.1 fL (7.4-10.4) H 02/16/23 04:39 Neut % (Auto) 47.6 % 02/16/23 04:39 Lymph % (Auto) 32.4 % 02/16/23 04:39 Jennings % (Auto) 9.6 % 02/16/23 04:39 Eos % (Auto) 8.0 % 02/16/23 04:39 Baso % (Auto) 2.1 % 02/16/23 04:39 Neut # (Auto) 1.79 10^3/uL (1.8-7.7) L 02/16/23 04:39 Lymph # (Auto) 1.2 10^3/uL (0.8-4.8) 02/16/23 04:39 Jennings # (Auto) 0.4 10^3/uL (0.2-0.9) 02/16/23 04:39 Eos # (Auto) 0.3 10^3/uL (0.0-0.8) 02/16/23 04:39 Baso # (Auto) 0.1 10^3/uL (0.0-0.1) 02/16/23 04:39 Nucleated RBC % (auto) 0 % 02/16/23 04:39 Nucleated RBCs # 0.0 /100WBC 02/16/23 04:39 Sodium 139 mmol/L (136-145) 02/16/23 04:39 Potassium 4.2 mmol/L (3.5-5.1) 02/16/23 04:39 Chloride 95 mmol/L (98-107) L 02/16/23 04:39 Carbon Dioxide 40 mmol/L (22-29) H 02/16/23 04:39 Anion Gap 8.2 (5-19) 02/16/23 04:39 BUN 35 mg/dL (8-23) H 02/16/23 04:39 Creatinine 1.0 mg/dL (0.7-1.2) 02/16/23 04:39 GFR Calculation 73.9 mL/min (90-130) L 02/16/23 04:39 Glucose 153 mg/dL (65-115) H 02/16/23 04:39 POC Glucose 203 mg/dL (70-110) H 02/16/23 10:59 Calculated Osmolality 299 mOsm/kg (285-295) H 02/16/23 04:39 Lactic Acid 1.0 mmol/L (0.5-2.2) 02/10/23 12:23 Calcium 8.7 mg/dL (8.5-10.5) 02/16/23 04:39 Phosphorus 3.4 mg/dL (2.5-4.5) 02/11/23 05:11 Magnesium 2.3 mg/dL (1.7-2.3) 02/11/23 05:11 Total Bilirubin 0.4 mg/dL (0.15-1.2) 02/16/23 04:39 AST 24 U/L (0-40) 02/16/23 04:39 ALT 24 U/L (0-41) 02/16/23 04:39 Alkaline Phosphatase 341 U/L (40-130) H 02/16/23 04:39 Creatine Kinase 24 U/L (39-308) L 02/12/23 05:45 Troponin T Baseline 34 ng/L (0-15) H 02/10/23 12:23 Troponin T 120 Minute 32.49 ng/L (0-15) H 02/10/23 14:19 Delta Troponin T -1.51 ABS# (0-10) L 02/10/23 14:19 Troponin T Hi Sens 6Hr 35.71 ng/L (0-15) H 02/10/23 18:23 Troponin T Hi Sens 6Hr Delta 1.71 ng/L (0-12) 02/10/23 18:23 NT-Pro-B Natriuret Pep 81522 pg/mL (0-125) H 02/10/23 12:23 Total Protein 7.6 g/dL (6.6-8.7) 02/16/23 04:39 Albumin 3.0 g/dL (3.5-5.2) L 02/16/23 04:39 Globulin 4.6 g/dL (1.3-4.6) 02/16/23 04:39 Vitamin B12 Cancelled 02/10/23 12:23 Vit B12 Status 399 pg/mL (200-1100) 02/10/23 12:23 Folate 8.3 ng/mL (4.5-32.2) 02/11/23 05:11 Procalcitonin 0.11 ng/mL (0-0.5) 02/10/23 14:19 Urine Color Yellow (Yellow) 02/12/23 20:30 Urine Appearance Clear (CLEAR) 02/12/23 20:30 Urine pH 5 (5-7) 02/12/23 20:30 Ur Specific [place] 1.015 (1.005-1.030) 02/12/23 20:30 Urine Protein Trace (Negative) 02/12/23 20:30 Urine Glucose (UA) Norm (Normal) 02/12/23 20:30 Urine Ketones 1+ (Negative) H 02/12/23 20:30 Urine Blood Neg (Negative) 02/12/23 20:30 Urine Nitrate Negative (Negative) 02/12/23 20:30 Urine Bilirubin 1+ (Negative) H 02/12/23 20:30 Urine Urobilinogen 4 mg/dL (Negative) H 02/12/23 20:30 Ur Leukocyte Esterase Negative (Negative) 02/12/23 20:30 Urine RBC None /hpf (0-2) 02/12/23 20:30 Urine WBC None /hpf (0-5) 02/12/23 20:30 Ur Eosinophil Smear 0 (0-0) 02/10/23 13:26 Ur Squamous Epith Cells None /hpf (0-5) 02/12/23 20:30 Amorphous Sediment Not Reportable 02/12/23 20:30 Urine Bacteria Trace /hpf (NONE) 02/12/23 20:30 Urine Mucus 2+ /hpf 02/12/23 20:30 Urine Eosinophils No eosinophils seen 02/10/23 13:26 Ur Random Sodium 86 mmol/L 02/10/23 13:26 Ur Random Potassium 36 mmol/L 02/10/23 13:26 Ur Random Chloride 82 mmol/L 02/10/23 13:26 Urine Creatinine 92 mg/dL (39-259) 02/10/23 13:26 Nasal Influ A H1 2009 PCR Not detected (NOT DETECT) 02/10/23 22:42 Adenovirus (PCR) Not detected (NOT DETECT) 02/10/23 22:42 C. pneumoniae DNA (PCR) Not detected (NOT DETECT) 02/10/23 22:42 Coronavirus 229E (PCR) Not detected (NOT DETECT) 02/10/23 22:42 Human Metapneumovir PCR Not detected (NOT DETECT) 02/10/23 22:42 Influenza A (H1) PCR Not detected (NOT DETECT) 02/10/23 22:42 Influenza A (H3) PCR Not detected (NOT DETECT) 02/10/23 22:42 Influenza Type A (PCR) Not detected (NOT DETECT) 02/10/23 22:42 Influenza Type B (PCR) Not detected (NOT DETECT) 02/10/23 22:42 M. pneumoniae (PCR) Not detected (NOT DETECT) 02/10/23 22:42 Parainfluenza 1 (PCR) Not detected (NOT DETECT) 02/10/23 22:42 Parainfluenza 2 (PCR) Not detected (NOT DETECT) 02/10/23 22:42 Parainfluenza 3 (PCR) Not detected (NOT DETECT) 02/10/23 22:42 Parainfluenza 4 (PCR) Not detected (NOT DETECT) 02/10/23 22:42 RSV Type A (PCR) Not detected (NOT DETECT) 02/10/23 22:42 RSV Type B (PCR) Not detected (NOT DETECT) 02/10/23 22:42 Entero/Rhino (PCR) Not detected (NOT DETECT) 02/10/23 22:42 SARS-CoV-2 (PCR) Not detected (NOT DETECT) 02/10/23 22:42 Vitals Last Vital Signs Temp 97.6 F 02/16/23 07:50 Pulse 82 02/16/23 10:41 Resp 18 02/16/23 10:41 BP 137/71 02/16/23 07:50 Pulse Ox 98 02/16/23 10:41 O2 Del Method Nasal Cannula 02/16/23 09:08 O2 Flow Rate 3 02/16/23 10:35 Discharge Plan Discharge Patient Disposition: Home Condition: Stable Prescriptions: New bisacodyl 5 mg Tablet,Delayed Release (Dr/Ec) 10 mg PO DAILY PRN (Reason: Constipation (see protocol)) Qty: 30 0RF lactulose 20 gram/30 mL Solution 10 g PO TID Qty: 1200 2RF Continued sucralfate [Carafate] 1 gram tablet 1 g PO Q6H Qty: 60 6RF albuterol sulfate [ProAir HFA] 90 mcg/actuation HFA aerosol inhaler 2 puff inhalation Q6H PRN (Reason: shortness of breath or wheezing) Qty: 8.5 6RF gabapentin 600 mg tablet 600 mg PO QID Qty: 120 1RF (DME) Compression stockings - 8-15mmHg See Rx Instructions .Route .MEDSUPPLY Qty: 1 0RF Rx Instructions: Wear during the day and remove at night (DME) Diabetic shoes See Rx Instructions .Route .MEDSUPPLY Qty: 2 0RF Rx Instructions: As directed ondansetron 4 mg tablet,disintegrating 4 mg PO Q6H PRN (Reason: nausea and vomiting) Qty: 90 3RF acetaminophen [Tylenol Arthritis Pain] 650 mg Tablet Extended Release 1,300 mg PO Q12H PRN (Reason: Pain) insulin lispro [Humalog U-100 Insulin] 100 unit/mL Solution See Rx Instructions .ROUTE .COMPLEX Rx Instructions: sliding scale tid dimenhydrinate [Dramamine] 50 mg Tablet 50 mg PO Q8H PRN (Reason: Dizziness) Centrum Silver Men 300-600-300 mcg Tablet 1 tab PO QAM metolazone 5 mg tablet 5 mg PO DAILY Rx Instructions: FOR 3 DAYS (RX FILLED 02/08/23) oxycodone 10 mg tablet 10 - 20 mg PO .EVERY 4-6 HOURS PRN (Reason: Pain) tamsulosin 0.4 mg capsule 0.4 mg PO QAM pantoprazole 40 mg tablet,delayed release (DR/EC) 40 mg PO QAM hydroxyzine HCl 10 mg tablet 10 mg PO QAM Rx Instructions: Don't take with Benadryl Changed furosemide 20 mg tablet 40 mg PO QAM Qty: 30 0RF Discontinued naproxen sodium [Aleve] 220 mg tablet 440 mg PO Q12H PRN (Reason: Pain) insulin glargine [Lantus Solostar U-100 Insulin] 100 unit/mL (3 mL) Insulin Pen 40 unit SUBCUT BEDTIME spironolactone 50 mg tablet 50 mg PO QAM losartan 50 mg tablet 50 mg PO QAM potassium chloride 10 mEq tablet extended release 10 meq PO QAM Discharge Orders: Discharge Order (Routine); Ordered 02/16/23 Ordered By: Rinku Rodriguez Other Ambulatory Orders: DME: Oxygen (Order) Location: None Selected Ordered By: Rinku Rodriguez Referrals: Jessie Davis FNP [Nurse Practitioner] - 1 week Milton Bal MD [Hospitalist] - (As per appointment) Ramirez Sheriff MD [Primary Care Provider] - 02/19/23 3:30 pm [facility], [Staff Physician] - 4-7 days (LE edema, ulcers) Discharge Diet: Cardiac and Diabetic Discharge Activity: As per PT/OT instructions and Oxygen as instructed Patient Instructions: Heart Failure (DC), Bledsoe Catheter Placement and Care (DC), Hypoglycemia in a Person with Diabetes (GEN), Hyperkalemia (GEN), CHF Stoplight, Opioid Safety Activity Restrictions/Additional Instructions: Continue diuretic at home. Please stop potassium supplement. Avoid medications that make you retain potassium. Have your primary doctor follow-up on your condition including congestive heart failure, reassess kidney function, potassium level. Follow-up with cardiology and oncology. Continue to monitor blood glucose at least 3 times daily, monitor for any low glucose. Due to noted low episodes in the hospital please do not continue insulin Lantus at this time (long-acting insulin). Follow-up with your primary doctor for reassessment of blood glucose control and avoidance of low glucose. In case your blood glucose is less than 80, take sugary snacks, recheck blood glucose in, in case there is no improvement, seek medical attention. Monitor blood pressure 3 times daily at home. Write down values to bring to appointment. Continue bowel regimen for constipation. Include high-fiber foods Discharge Attestations Time Spent in Discharge Care*: greater than 30 min Quality Metrics Clinical Quality Measures [ No reported AMI, CVA or VTE this stay] Coding Level of Care Code 06082 Total time (in minutes) for Discharge: 45 Diagnoses CHF (congestive heart failure) I50.9 Heart failure chronicity: acute on chronic Heart failure type: unspecified Hypoglycemia E16.2 CHENCHO (acute kidney injury) N17.9 Hyperkalemia E87.5 Anasarca R60.1 Cardiomyopathy I42.9 Moderate mitral regurgitation I34.0 Type 2 diabetes, controlled, with neuropathy E11.40 Malignant pleural effusion J91.0 Constipation K59.00 Multifocal lung consolidation J18.1
== END 2023-02-16 12:56 | disposition home or self-care (01) | DRG 291 ==
LOC: ER 15:30 → ICU 16:32 → CSU 02-11 19:45
PROVIDERS: Family Medicine; Admitting Provider Student in an Organized Health Care Education/Training Program; Emergency Provider Emergency Medicine; PCP Family Medicine; Visit Provider Internal Medicine
DX: I11.0 Hypertensive heart disease with heart failure (principal); I50.43 Acute on chronic combined systolic (congestive) and diastolic (congestive) heart failure; J91.0 Malignant pleural effusion; N17.9 Acute kidney failure, unspecified; E87.5 Hyperkalemia; E11.649 Type 2 diabetes mellitus with hypoglycemia without coma; E11.42 Type 2 diabetes mellitus with diabetic polyneuropathy; Z79.4 Long term (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 of insulin; Z79.891 Long term (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 of opiate analgesic; K59.00 Constipation, unspecified; K21.9 Gastro-esophageal reflux disease without esophagitis; Z94.89 Other transplanted organ and tissue status; Z85.71 Personal history of Hodgkin lymphoma; I25.2 Old myocardial infarction; G47.33 Obstructive sleep apnea (adult) (pediatric); Z96.641 Presence of right artificial hip joint; I34.0 Nonrheumatic mitral (valve) insufficiency; D69.6 Thrombocytopenia, unspecified; I42.9 Cardiomyopathy, unspecified; R30.0 Dysuria; Z86.14 Personal history of Methicillin resistant Staphylococcus aureus infection
CPT/HCPCS: 36415; 36416; 36591; 71045; 71260; 74177; 80053; 81001; 82436; 82550; 82570; 82607; 82746; 82962; 83605; 83735; 83880; 84100; 84133; 84145; 84300; 84484; 85025; 85999; 87040; 87070; 87077; 87186; 87205; 87486; 87581; 87633; 93005; 94664; 94760; 96361; 96372; 96374; 96375; 96376; 97161; 97530; 99285; A9270; J1642; J1644; J1815; J1940; J2185; J2405; J3370; J7060; J7799; Q0163; Q9967

== ENCOUNTER → 2023-02-19 15:27 | Outpatient (BNVA) | payer MEDICARE, SELFPAY | PROVIDERS: PCP Family Medicine; Visit Provider Thoracic Surgery (Cardiothoracic Vascular Surgery) | DX: E11.52 Type 2 diabetes mellitus with diabetic peripheral angiopathy with gangrene (principal); E11.621 Type 2 diabetes mellitus with foot ulcer; L97.522 Non-pressure chronic ulcer of other part of left foot with fat layer exposed; E11.622 Type 2 diabetes mellitus with other skin ulcer; L97.812 Non-pressure chronic ulcer of other part of right lower leg with fat layer exposed; L97.821 Non-pressure chronic ulcer of other part of left lower leg limited to breakdown of skin | CPT/HCPCS: 11042; 97597 ==

== ENCOUNTER 2023-02-22 15:48 | Outpatient (CLI) | payer MEDICARE, SELFPAY ==
[2023-02-22] MEDS: iohexol 350 mg/mL 500 mL Btl (per mL) IV (15:54)
[2023-02-22] MEDS: iohexol 350 mg/mL 500 mL Btl (per mL) PO (15:54)
--- NOTE | 2023-02-22 17:00 | CT_ITS ---
WS: [id number] CT CHEST, ABDOMEN, AND PELVIS TECHNIQUE: Contrast-enhanced CT of the chest, abdomen, and pelvis with coronal and sagittal reformatt ed images. CLINICAL INFORMATION: hodgkin lymphoma of intrathoracic lymph nodes COMPARISON: 02/10/2023 DLP: 1181.[address] scans at [facility] use at least one of these dose optimization techniques: automated e xposure control; mA and/or kV adjustment per patient size (includes targeted exams where dose is matc hed to clinical indication); or iterative reconstruction. CT CHEST: Small LEFT and moderate RIGHT pleural effusions. RIGHT pleural effusion layering along the RIGHT lateral and anterior pleural space. Consolidation with compressive atelectasis RIGHT lower lobe . Volume loss RIGHT lung. Patchy hazy groundglass infiltrates RIGHT upper lobe. Interstitial edema in the RIGHT greater than LEFT lungs. Normal caliber thoracic aorta. Proximal main pulmonary arteries a ppear normal. No axillary lymphadenopathy. A few prominent mediastinal lymph nodes unchanged. Cardiomegaly. Diffuse anasarca. CT ABDOMEN AND PELVIS: Cholecystectomy. RIGHT JOY degrades images in the pelvis. Diffuse body wall anasarca. Small amount of free fluid in the pelvis. Hepatomegaly. Splenomegaly. Portal vein and splenic vein are patent. Fatty atrophy of the pancreas. Splenic artery calcification. Adrenal glands are normal. Celiac and SMA are patent. Normal caliber abdominal aorta. Mild bladder wall thickening. Adrenal glands are normal. Nor mal renal parenchymal enhancement. No hydronephrosis. Mild sigmoid constipation. Mild pancolonic constipation. No lymphadenopathy in the abdomen or pelvis. Prior postoperative changes lumbar spine with fusion. Chronic anterior wedging at L2. IMPRESSION: 1. RIGHT upper lobe groundglass infiltrates have improved compared to previous. 2. Stable bilateral pleural effusions also extending along the lateral pleural space and anterior pl eural space RIGHT. 3. Compressive atelectasis with consolidation in the RIGHT lower lobe is unchanged. 4. A few prominent mediastinal lymph nodes unchanged. 5. Diffuse body wall anasarca with interstitial edema. 6. Cardiomegaly. 7. Hepatomegaly and splenomegaly. 8. Prior cholecystectomy 9. Diffuse mild pancolonic constipation.
== END 2023-02-22 15:49 | disposition home or self-care (01) ==
LOC: RAD 15:50
PROVIDERS: PCP Family Medicine; Visit Provider Internal Medicine Medical Oncology
DX: C81.92 Hodgkin lymphoma, unspecified, intrathoracic lymph nodes (principal); J90 Pleural effusion, not elsewhere classified; J98.11 Atelectasis; R60.1 Generalized edema; I51.7 Cardiomegaly; R16.0 Hepatomegaly, not elsewhere classified; R16.1 Splenomegaly, not elsewhere classified; K59.00 Constipation, unspecified
CPT/HCPCS: 71260; 74177; Q9967

== ENCOUNTER → 2023-02-26 12:57 | Outpatient (BNVA) | payer MEDICARE, SELFPAY | PROVIDERS: PCP Family Medicine; Visit Provider Nurse Practitioner Family | DX: E11.52 Type 2 diabetes mellitus with diabetic peripheral angiopathy with gangrene (principal); E11.622 Type 2 diabetes mellitus with other skin ulcer; L97.822 Non-pressure chronic ulcer of other part of left lower leg with fat layer exposed; L97.812 Non-pressure chronic ulcer of other part of right lower leg with fat layer exposed; E11.621 Type 2 diabetes mellitus with foot ulcer; L97.511 Non-pressure chronic ulcer of other part of right foot limited to breakdown of skin | CPT/HCPCS: 97597 ==

== ENCOUNTER → 2023-03-05 10:11 | Outpatient (BNVA) | payer MEDICARE, SELFPAY | PROVIDERS: PCP Family Medicine; Visit Provider Thoracic Surgery (Cardiothoracic Vascular Surgery) | DX: E11.52 Type 2 diabetes mellitus with diabetic peripheral angiopathy with gangrene (principal); E11.621 Type 2 diabetes mellitus with foot ulcer; L97.521 Non-pressure chronic ulcer of other part of left foot limited to breakdown of skin; E11.622 Type 2 diabetes mellitus with other skin ulcer; L97.812 Non-pressure chronic ulcer of other part of right lower leg with fat layer exposed; L97.821 Non-pressure chronic ulcer of other part of left lower leg limited to breakdown of skin | CPT/HCPCS: 97597; A6210; A6219 ==

== ENCOUNTER 2023-03-09 15:53 | Inpatient (IN) | payer MEDICARE, SELFPAY ==
[2023-03-09 16:03] VITALS: PULSE 98; RESP 16; TEMP 36.8; O2SAT 100; BMI 31.9
--- NOTE | 2023-03-09 17:12 | XRR_ITS ---
PROCEDURE INFORMATION: Exam: XR Right Knee Exam date and time: 03/09/2023 8:16 PM Age: 72 years old Clinical indication: Injury or trauma; Blunt trauma; Right; Patient HX: Fall landing on RT side. C/O knee pain. TECHNIQUE: Imaging protocol: Radiologic exam of the right knee. Views: 3 views. COMPARISON: No relevant prior studies available. FINDINGS: Bones/joints: Acute, mildly impacted fracture of the proximal shaft of the tibia. The fracture extends to the tibial plateau. Acute fracture of the proximal shaft of the fibula. Distal femur appears intact. Patella appears intact. Tricompartmental degenerative knee joint narrowing noted incidentally. Soft tissues: Soft tissue edema noted. XR/XR knee RT 3V* [id number] IMPRESSION: 1. Acute, mildly impacted fracture of the proximal shaft of the tibia. The fracture extends to the tibial plateau. 2. Acute fracture of the proximal shaft of the fibula.
--- NOTE | 2023-03-09 19:24 | XRR_ITS ---
PROCEDURE INFORMATION: Exam: XR Right Hip Exam date and time: 03/09/2023 8:16 PM Age: 72 years old Clinical indication: Injury or trauma; Blunt trauma (contusions or hematomas); Right; Prior surgery; Surgery date: 6+ months; Surgery type: Iglesia; Patient HX: Fall landing onto RT side. C/O hip pain. ; Additional info: Fall R hip pain TECHNIQUE: Imaging protocol: Radiologic exam of the right hip. Views: 1 view hip with pelvis when performed. COMPARISON: CT chest abdpel w/*[id number] 02/22/2023 5:08 PM FINDINGS: Bones/joints: Right hip prosthesis noted. No acute fracture or other acute osseous abnormality. Soft tissues: Unremarkable. XR/XR hip RT 2-3V wo/w pel* [id number] IMPRESSION: 1. Right hip prosthesis noted. 2. No acute fracture demonstrated. 3. There is no interval change from the prior examination.
[2023-03-09 19:44] VITALS: RESP 20; O2SAT 99
[2023-03-09] MEDS: HYDROmorphone 1 mg/mL INJ 1 mL IM (19:44)
[2023-03-09] MEDS: ondansetron 4 MG Tablet PO (19:45)
--- NOTE | 2023-03-09 20:40 | XRR_ITS ---
PROCEDURE INFORMATION: Exam: XR Right Tibia and Fibula Exam date and time: 03/09/2023 8:41 PM Age: 72 years old Clinical indication: Injury or trauma; Blunt trauma; Right; Patient HX: Fall landing on RT side. C/O lower leg pain. ; Additional info: Fall leg pain TECHNIQUE: Imaging protocol: Radiologic exam of the right tibia and fibula. Views: 2 views. COMPARISON: CR (LOW EXM, ) 03/09/2023 8:16 PM FINDINGS: Bones/joints: Fractures of the proximal tibia and proximal fibula. Distal tibia and distal fibula are intact. Degenerative changes of the knee joint and ankle joint are noted. Soft tissues: Unremarkable. XR/XR tibia fibula RT 2V [id number] IMPRESSION: 1. Fractures of the proximal tibia and proximal fibula. Please see accompanying XR right knee report for details. 2. Distal tibia and distal fibula are intact.
[2023-03-09 21:34] VITALS: BP 147/80; O2SAT 97
--- NOTE | 2023-03-09 22:45 | XRR_ITS ---
PROCEDURE INFORMATION: Exam: XR Chest Exam date and time: 03/09/2023 10:49 PM Age: 72 years old Clinical indication: Injury or trauma; Fall; Other: Unknown TECHNIQUE: Imaging protocol: Radiologic exam of the chest. Views: 1 view. COMPARISON: CT chest abdpel w/*[id number] 02/22/2023 5:08 PM FINDINGS: Tubes, catheters and devices: Right-sided infusion port noted. Lungs: Compressive atelectasis versus infiltrates at the bilateral lung bases. Pleural spaces: Bilateral pleural effusions, right larger than left. Heart/Mediastinum: Cardiomegaly is present. Bones/joints: Degenerative spine changes are noted. No acute osseous abnormality. XR/XR chest 1V portable [id number] IMPRESSION: 1. Cardiomegaly is present. 2. Bilateral pleural effusions, right larger than left. 3. Compressive atelectasis versus infiltrates at the bilateral lung bases.
--- NOTE | 2023-03-09 22:45 | CTR_ITS ---
PROCEDURE INFORMATION: Exam: CT Right Lower Extremity Without Contrast; Lower Leg Exam date and time: 03/09/2023 10:56 PM Age: 72 years old Clinical indication: Injury or trauma; Blunt trauma; Lower leg; Right; Patient HX: Fall earlier this evening. Tibial impact fracture noted on plain films. ; Additional info: Tibia and fibula fractures TECHNIQUE: Imaging protocol: CT of the right lower extremity without contrast was performed. Exam focused on the lower leg. Radiation optimization: All CT scans at this facility use at least one of these dose optimization techniques: automated exposure control; mA and/or kV adjustment per patient size (includes targeted exams where dose is matched to clinical indication); or iterative reconstruction. REPORTING DATA: Count of CT and Cardiac NM exams in prior 12 months: This patient has received 8 known CTs and 0 known cardiac nuclear medicine studies in the 12 months prior to the current study. COMPARISON: CR (LOW EXM, ) 03/09/2023 8:41 PM RADIATION DOSE METRICS: Total DLP (mGy-cm): 480.48 FINDINGS: Bones/joints: Fracture of the proximal tibia. The fracture is located approximately 8 cm distal to the articular surface. Fracture is mildly impacted. Vertical component of the fracture extends cephalad to the tibial plateau. Mildly impacted fracture of the proximal fibula. The distal tibia is intact. The distal fibula is intact. Soft tissues: Subcutaneous edema is noted. The musculature appears unremarkable. CT/CT lower leg RT wo con* [id number] IMPRESSION: 1. Acute fracture of the proximal tibia, as above. 2. Mildly impacted fracture of the proximal fibula also noted.
--- NOTE | 2023-03-09 23:25 | ECG_ITS ---
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 Measurements Intervals [place] Rate: 71 P: 17 VA: 244 QRS: -74 QRSD: 128 T: 56 QT: 418 QTc: 457 Interpretive Statements SINUS RHYTHM WITH FIRST DEGREE AV BLOCK WITH OCCASIONAL SUPRAVENTRICULAR PREMATURE COMPLEXES LEFT ANTERIOR FASCICULAR BLOCK [QRS AXIS <= -45, QR IN I, RS IN II] Compared to ECG 02/10/2023 20:22:31 First degree AV block now present Left anterior fascicular block now present Left-axis deviation no longer present Myocardial infarct finding no longer present Electronically Signed On 03-10-2023 10:09:56 CDT by Gladys Diana M.D. [id number]
[2023-03-09 23:27] LABS: Basophils # 0.1 10^3/uL (0.0-0.1); Basophils % 1.6 %; Eosinophils # 0.1 10^3/uL (0.0-0.8); Eosinophils % 2.8 %; Hematocrit 32.3 % (37-53); Lymphocytes # 1.1 10^3/uL (0.8-4.8); Lymphocytes % 24.6 %; Mean Corpuscular HGB Conc 26.3 g/dL (30-55); Mean Corpuscular Hemoglobin 26.2 pg (27-33); Mean Corpuscular Volume 99.4 fl (82-101); Mean Platelet Volume 11.1 fL (7.4-10.4); Monocytes # 0.5 10^3/uL (0.2-0.9); Neutrophils # 2.55 10^3/uL (1.8-7.7); Neutrophils % 59.8 %; Nucleated Red Blood Cells % 0 %; Platelet Count 120 10^3/cmm (157-399); Red Blood Count 3.25 10^6/uL (3.85-5.65); Red Cell Distribution Width 17.9 % (12.1-15.1); White Blood Count 4.27 10^3/uL (3.29-11.43)
[2023-03-09 23:36] VITALS: RESP 15; O2SAT 90
[2023-03-09] MEDS: HYDROmorphone 1 mg/mL INJ 1 mL 0.5 MG IVP (23:36)
[2023-03-09 23:52] LABS: Alanine Aminotransferase 12 U/L (0-41); Albumin Level 3.1 g/dL (3.5-5.2); Alkaline Phosphatase 336 U/L (40-130); Anion Gap 11.4 (5-19); Aspartate Amino Transferase 16 U/L (0-40); Blood Urea Nitrogen 24 mg/dL (8-23); Calcium 8.5 mg/dL (8.5-10.5); Carbon Dioxide 28 mmol/L (22-29); Chloride 104 mmol/L (98-107); Creatinine Clr Calc Pharmacy 85.4925; Globulin 4.4 g/dL (1.3-4.6); Glomerular Filtration Rate 83.4 mL/min (90-130); Glucose 133 mg/dL (65-115); Osmolality Calculated 292 mOsm/kg (285-295); Potassium 5.4 mmol/L (3.5-5.1); Sodium 138 mmol/L (136-145); Total Bilirubin 0.5 mg/dL (0.15-1.2); Total Protein 7.5 g/dL (6.6-8.7)
[2023-03-10] VITALS (14 sets, daily range): BP systolic 118–153; BP diastolic 55–77; PULSE 61–74; RESP 13–22; TEMP 36.5–37.2; O2SAT 95–100
--- NOTE | 2023-03-10 00:16 | W.ED.EXTPRO ---
HPI - Extremity Problem General: Chief complaint: Extremity Injury, Lower Stated complaint: knee pain Time Seen by Provider: 03/09/23 19:11 History of Present Illness: 72-year-old male with history of multiple medical problems. He fell at home, injuring his right lower extremity. He complains mainly of knee pain and swelling. He is unable to bear weight on that side. He is unable to bend or straighten his knee without significant pain. He tripped over his oxygen cord. 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 History of pericarditis 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 Hypernatremia Iron overload 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 Myelodysplastic syndrome Initially diagnosed in July 2002 NSTEMI (non-ST elevated myocardial infarction) Obstructive sleep apnea Peripheral neuropathy Pleural effusion Rib fracture Sepsis Septic shock Type 2 diabetes mellitus without complications Surgical History History of cholecystectomy History of lumbar laminectomy History of tonsillectomy History of total right hip arthroplasty (2015) S/P ORIF (open reduction internal fixation) fracture (2014) Status post creation of pericardial window (2008) Social History Smoking and tobacco/nicotine status: never used tobacco/nicotine Physical Exam Const: GENERAL APPEARANCE: cooperative and frail appearing; not ill appearing HENMT: COMMON NORMALS: normocephalic, atraumatic and Normal external nose present HEAD & SCALP: normocephalic and atraumatic FACE & SINUS: normal facial exam and face symmetric NOSE: Normal external nose present Eye: COMMON NORMALS: Equal, round and reactive pupils present and EOMs intact bilaterally PUPIL: Yes Equal, round and reactive pupils present Neck/C-Spine: GENERAL: Yes trachea midline Chest: CHEST: Yes Symmetrical chest wall rise Resp: COMMON NORMALS: normal respiratory effort, No retractions, No use of accessory muscles and clear to auscultation bilaterally AUSCULTATION: clear to auscultation bilaterally Cardio: COMMON NORMALS: regular rate and regular rhythm RATE: regular rate RHYTHM: regular rhythm GI: COMMON NORMALS: Normal to inspection, nondistended, normoactive bowel sounds present Extremity: NARRATIVE EXTREMITY EXAM: Exam the right lower extremity reveals a knee joint effusion. There is pain with movement. There is no significant deformity. There is tenderness to palpation of the proximal tibia and fibula at the knee. There is pain just below. No ankle pain. The patient has significant lower extremity edema. There is a covered wound at the patella on the right. Venous stasis dermatitis is present. Neuro: MADDI COMA SCALE: document GCS findings [place] coma scale eye opening: Spontaneous [place] coma scale verbal response: Orientated Maddi coma scale motor response: Obey commands [place] coma scale total score: 15 SENSORY EXAM: Yes extremities (intact) Psych: COMMON NORMALS: speech normal SPEECH: Yes normal speech Skin: COMMON NORMALS: no rashes or lesions noted GENERAL SKIN EXAM: no rashes or lesions noted Course Vital Signs: Vital signs: Vital Signs Temperature 98.3 F 03/09/23 16:03 Pulse Rate 98 03/09/23 16:03 Respiratory Rate 15 03/09/23 23:36 Blood Pressure 147/80 03/09/23 21:34 Pulse Oximetry 90 03/09/23 23:36 Oxygen Delivery Me thod Nasal Cannula 03/09/23 21:34 Oxygen Flow Rate 3 03/09/23 21:34 MDM - Extremity (Nontraumatic) Medical Decision Making 73-year-old male with a mechanical fall. He has right knee pain and effusion. X-ray shows mildly impacted fracture of the proximal shaft of the tibia extending into the tibial plateau and intra-articularly. Spoke with orthopedic surgeon. Requests CT of the lower extremity. This will be performed. Laboratory is obtained. Hospitalist team will admit. She will see the patient. Lab Data 03/09/23 23:23 11/03/23 23:23 Radiology Impressions Knee X-Ray 03/09/23 17:12 IMPRESSION: 1. Acute, mildly impacted fracture of the proximal shaft of the tibia. The fracture extends to the tibial plateau. 2. Acute fracture of the proximal shaft of the fibula. Hip/Pelvis X-Ray 03/09/23 19:24 IMPRESSION: 1. Right hip prosthesis noted. 2. No acute fracture demonstrated. 3. There is no interval change from the prior examination. Tibia/Fibula X-Ray 03/09/23 20:40 IMPRESSION: 1. Fractures of the proximal tibia and proximal fibula. Please see accompanying XR right knee report for details. 2. Distal tibia and distal fibula are intact. Chest X-Ray 03/09/23 22:45 IMPRESSION: 1. Cardiomegaly is present. 2. Bilateral pleural effusions, right larger than left. 3. Compressive atelectasis versus infiltrates at the bilateral lung bases. Lower Extremity CT 03/09/23 22:45 IMPRESSION: 1. Acute fracture of the proximal tibia, as above. 2. Mildly impacted fracture of the proximal fibula also noted. All radiology interpretation(s) finalized by discharge Discharge Plan Discharge Patient Disposition: Admitted As Inpatient Admit Provider: Anu Preciado Clinical Impression: Fracture of proximal end of right tibia Condition: Stable Coding Level of Care Code ED [facility] Psychiatrist for Kelly Dudley
--- NOTE | 2023-03-10 03:05 | PM.HP ---
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 Most recently found to have malignant right pleural effusion awaiting further treatment planning with oncology. Other comorbidities include systolic and diastolic heart failure with a EF of 45%, type 2 diabetes mellitus, hypertension. he was recently admitted here until 02/16 for anasarca and CHF exacebation which were treated. He presents today after having suffered a mechanical fall by tripping over oxygen tubing resulting in a tibial plateau fracture. At a baseline he has multipel LE ulcers for which he follows with wound care. Currently reports pain at fracture site. Denies any chest pain dyspnea palpitations syncope Review of Systems General: Reports: 10 or more systems reviewed and unremarkable except in HPI and below Const: Denies: fever(s), chills or body aches Eyes: Denies: change in vision, blurry vision or photophobia ENMT: Reports: hoarseness; Denies: throat pain, enlarged tonsils, odynophagia or nasal congestion Card: Denies: chest pain, palpitations, irregular heart rhythm, edema, swelling of feet/ankles, lightheadedness, pre-syncope, dyspnea on exertion or orthopnea Resp: Denies: dyspnea, productive cough, non-productive cough, wheezing, stridor, pain on inspiration, change in phlegm color, hemoptysis or chest congestion GI: Denies: abdominal pain, nausea, vomiting, hematemesis, coffee ground emesis, dysphagia, heartburn, diarrhea, constipation, GI cramping, change in stool character, hematochezia or melena : Denies: flank pain, dysuria, urinary frequency, urinary urgency, urinary hesitancy or hematuria Musc: Denies: neck pain, back pain, extremity pain, joint swelling, joint warmth or deformity Neuro: Denies: headache(s), numbness in extremities, weakness in extremities, sensory changes, difficulty walking, frequent falls, dizziness, vertigo, behavioral changes, Slurred speech present or seizure-like activity Psych: Denies: anxiety, depression, suicidal ideation or homicidal ideation Endo: Denies: polyuria, polydipsia, tired all the time, cold intolerance or hot flashes Krist[place]/Lymph: Denies: easy bruising or easy bleeding Medications/Allergies Home Medications Medication Instructions Recorded Confirmed Last Taken Type acetaminophen 650 mg 1,300 mg PO Q12H PRN Pain 08/13/19 02/10/23 Unknown History tablet,extended release (Tylenol Arthritis Pain) insulin lispro 100 unit/mL See Rx Instructions .Route .COMPLEX 07/02/20 02/10/23 03/08/22 History subcutaneous solution (Humalog U-100 Insulin) dimenhydrinate 50 mg tablet 50 mg PO Q8H PRN Dizziness 03/09/22 02/10/23 Unknown History (Dramamine) [id number] 300 mcg-K 60 1 tab PO QAM 03/09/22 02/10/23 02/10/23 History mcg-lycop 600 mcg-lutein 300 mcg tablet (Centrum Silver Men) albuterol sulfate 90 mcg/actuation 2 puff inhalation Q6H PRN 03/21/22 02/10/23 Unknown Rx aerosol inhaler (ProAir HFA) shortness of breath or wheezing #8.5 grams Diabetic shoes #2 ea 10/24/22 02/10/23 Unknown Rx sucralfate 1 gram tablet (Carafate) 1 g PO Q6H #60 tabs 11/14/22 02/10/23 02/10/23 Rx ondansetron 4 mg disintegrating 4 mg PO Q6H PRN nausea and 12/04/22 02/10/23 Unknown Rx tablet vomiting #90 tabs Compression stockings - 8-15mmHg #1 ea 12/26/22 02/10/23 Unknown Rx hydroxyzine HCl 10 mg tablet 10 mg PO QAM 02/10/23 02/10/23 02/10/23 History SEE PHARMACY COMMENT metolazone 5 mg tablet 5 mg PO DAILY 02/10/23 02/10/23 02/09/23 History FINISHED PER oxycodone 10 mg tablet 10 - 20 mg PO .EVERY 4-6 HOURS PRN 02/10/23 02/10/23 Unknown History Pain pantoprazole 40 mg tablet,delayed 40 mg PO QAM 02/10/23 02/10/23 02/10/23 History release tamsulosin 0.4 mg capsule 0.4 mg PO QAM 02/10/23 02/10/23 02/10/23 History bisacodyl 5 mg tablet,delayed 10 mg PO DAILY PRN Constipation 02/16/23 Unknown Rx release (see protocol) #30 tabs furosemide 20 mg tablet 40 mg PO QAM #30 tabs 02/16/23 02/10/23 02/10/23 Rx lactulose 20 gram/30 mL oral 10 g (15 mL) PO TID #1,200 mL 02/16/23 Unknown Rx solution potassium chloride 10 mEq 10 meq PO DAILY #30 tabs 02/19/23 Unknown Rx tablet,extended release spironolactone 50 mg tablet 50 mg PO BID #60 tabs 02/19/23 Unknown Rx gabapentin 600 mg tablet See Rx Instructions .Route 02/23/23 Unknown Rx .COMPLEX #120 tabs Allergies Allergy/AdvReac Type Severity Reaction Status Date / Time methadone Allergy Unknown Unknown Verified 02/10/23 12:09 carisoprodol [From Soma] Allergy Unknown Verified 02/10/23 12:09 codeine Allergy Unknown Verified 02/10/23 12:09 morphine Allergy Unknown Verified 02/10/23 12:09 PFSH Acute PFSH: Medical History Acute cystitis CHENCHO (acute kidney injury) Altered mental status Cardiomyopathy CHF (congestive heart failure) Degenerative arthritis Degenerative joint disease of spine Essential hypertension GERD (gastroesophageal reflux disease) Gram-positive bacteremia 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 History of pericarditis 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 Hypernatremia Iron overload 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 Myelodysplastic syndrome Initially diagnosed in July 2002 NSTEMI (non-ST elevated myocardial infarction) Obstructive sleep apnea Peripheral neuropathy Pleural effusion Rib fracture Sepsis Septic shock Type 2 diabetes mellitus without complications Surgical History History of cholecystectomy History of lumbar laminectomy History of tonsillectomy History of total right hip arthroplasty (2015) S/P ORIF (open reduction internal fixation) fracture (2014) Status post creation of pericardial window (2008) Social History Smoking and tobacco/nicotine status: never used tobacco/nicotine Vitals/I&O/Wt Last Vital Signs Temp 98.3 F 03/09/23 16:03 Pulse 98 03/09/23 16:03 Resp 15 03/09/23 23:36 BP 147/80 03/09/23 21:34 Pulse Ox 90 03/09/23 23:36 O2 Del Method Nasal Cannula 03/10/23 00:05 O2 Flow Rate 3 03/09/23 21:34 Weight last 48 hrs Weight 95.254 kg Physical Exam Narrative: General: No acute distress, AO x3 HEENT: PERRLA, pupils bilaterally equal and reactive, pallors not present Chest: Normal vesicular breath sounds, no added sounds, equal good air entry bilaterally CVS: S1-S2 regular, no murmurs, no tachycardia, no gallops, no rubs Abdomen: Soft, nontender, no organomegaly, bowel sounds present Neuro: No focal deficits, no facial deformity, AO x3, power 5/5 in all limbs Data 03/09/23 23:23 03/09/23 23:23 Other Labs: Radiology Impressions Knee X-Ray 03/09/23 17:12 IMPRESSION: 1. Acute, mildly impacted fracture of the proximal shaft of the tibia. The fracture extends to the tibial plateau. 2. Acute fracture of the proximal shaft of the fibula. Hip/Pelvis X-Ray 03/09/23 19:24 IMPRESSION: 1. Right hip prosthesis noted. 2. No acute fracture demonstrated. 3. There is no interval change from the prior examination. Tibia/Fibula X-Ray 03/09/23 20:40 IMPRESSION: 1. Fractures of the proximal tibia and proximal fibula. Please see accompanying XR right knee report for details. 2. Distal tibia and distal fibula are intact. Chest X-Ray 03/09/23 22:45 IMPRESSION: 1. Cardiomegaly is present. 2. Bilateral pleural effusions, right larger than left. 3. Compressive atelectasis versus infiltrates at the bilateral lung bases. Lower Extremity CT 03/09/23 22:45 IMPRESSION: 1. Acute fracture of the proximal tibia, as above. 2. Mildly impacted fracture of the proximal fibula also noted. Laboratory Results WBC 4.27 10^3/uL (3.29-11.43) 03/09/23 23: RBC 3.25 10^6/uL (3.85-5.65) L 03/09/23 23: Hgb 8.50 g/dL (11.27-16.99) L 03/09/23 23: Hct 32.3 % (37-53) L 03/09/23 23: MCV 99.4 fl (82-101) 03/09/23 23: MCH 26.2 pg (27-33) L 03/09/23 23: MCHC 26.3 g/dL (30-55) L 03/09/23 23: RDW 17.9 % (12.1-15.1) H 03/09/23 23: Plt Count 120 10^3/cmm (157-399) L 03/09/23 23: MPV 11.1 fL (7.4-10.4) H 03/09/23 23: Neut % (Auto) 59.8 % 03/09/23 23: Lymph % (Auto) 24.6 % 03/09/23 23: [place] % (Auto) 11.0 % 03/09/23 23: Eos % (Auto) 2.8 % 03/09/23 23: Baso % (Auto) 1.6 % 03/09/23 23: Neut # (Auto) 2.55 10^3/uL (1.8-7.7) 03/09/23 23: Lymph # (Auto) 1.1 10^3/uL (0.8-4.8) 03/09/23 23: [place] # (Auto) 0.5 10^3/uL (0.2-0.9) 03/09/23 23: Eos # (Auto) 0.1 10^3/uL (0.0-0.8) 03/09/23 23: Baso # (Auto) 0.1 10^3/uL (0.0-0.1) 03/09/23 23: Nucleated RBC % (auto) 0 % 03/09/23 23: Nucleated RBCs # 0.0 /100WBC 03/09/23 23: Sodium 138 mmol/L (136-145) 03/09/23 23:23 Potassium 5.4 mmol/L (3.5-5.1) H 03/09/23 23:23 Chloride 104 mmol/L (98-107) 03/09/23 23:23 Carbon Dioxide 28 mmol/L (22-29) 03/09/23 23:23 Anion Gap 11.4 (5-19) 03/09/23 23:23 BUN 24 mg/dL (8-23) H 03/09/23 23:23 Creatinine 0.9 mg/dL (0.7-1.2) 03/09/23 23:23 GFR Calculation 83.4 mL/min (90-130) L 03/09/23 23:23 Glucose 133 mg/dL (65-115) H 03/09/23 23: Calculated Osmolality 292 mOsm/kg (285-295) 03/09/23 23: Calcium 8.5 mg/dL (8.5-10.5) 03/09/23 23: Total Bilirubin 0.5 mg/dL (0.15-1.2) 03/09/23 23: AST 16 U/L (0-40) 03/09/23 23: ALT 12 U/L (0-41) 03/09/23 23: Alkaline Phosphatase 336 U/L (40-130) H 03/09/23 23: Total Protein 7.5 g/dL (6.6-8.7) 03/09/23 23: Albumin 3.1 g/dL (3.5-5.2) L 03/09/23 23: Globulin 4.4 g/dL (1.3-4.6) 03/09/23 23:23 A&P Assessment and plan (1) Fracture of proximal end of right tibia: Suffered after mechanical fall. Orthopedic service has been consulted from the emergency room, awaiting assessment N.p.o. for now in case surgical intervention may be needed in the morning. Pain control with hydromorphone 1 mg IV every 6 hours as needed. Continue home dose of oxycodone 10 mg p.o. every 6 hours as needed Continue home dose of gabapentin. (2) Anemia: Chronic, longstanding,'s worsening since July 2022, slowly declining from 10.8 earlier this year to 8.5 today. No active signs of bleeding. Continue to closely monitor. Not on any iron on Venofer supplementation due to high ferritin levels as outpatient. (3) CHF (congestive heart failure): Recent admission for the same. This is chronic, longstanding Continue home dose of Lasix currently. Will need to verify if patient is still taking metolazone, on last discharge it appears this was only prescribed to be taken for 3 days. Qualifiers: Heart failure chronicity: acute on chronic Heart failure type: unspecified Qualified Code(s): I50.9 - Heart failure, unspecified Plan DVT prophylaxis: Lovenox Attestations Medical Necessity Statement*: Greater than 2 midnight admission is anticipated for above defined care Coding Level of Care Code Acute Code for Chg Fwd Moderate MDM includes number and complexity of problems actively addressed during encounter, amount and/or complexity of data reviewed/ordered and described risk of complication, morbidity or mortality of management as documented Diagnoses Fracture of proximal end of right tibia S82.101A Anemia D64.9 CHF (congestive heart failure) I50.9 Heart failure chronicity: acute on chronic Heart failure type: unspecified
[2023-03-10] MEDS: oxyCODONE 5 mg IR Tab/Cap 10 MG PO ×3 (03:20→20:03)
[2023-03-10] MEDS: enoxaparin 40 mg/0.4 mL Syringe SUBCUT (03:21)
[2023-03-10 06:10] LABS: Glucose Point of Care 144 mg/dL (70-110)
[2023-03-10] MEDS: naloxone 0.4 mg/ml SDV IVP ×2 (06:18→06:30)
[2023-03-10 06:33] LABS: ABG PCO2 52.5 mmHg (35-45); ABG PH Result 7.36 (7.35-7.45); Arterial Blood Gas Hematocrit 26.9 % (42-52); Base Excess ABG 3.7 mmol/L (-2.0-2.0); Blood Gas Sample Site Brachial, left; Blood Gas Sample Type Arterial; HCO3 ABG 29.8 mmol/L (22-26); Oxygen Device NC; PO2 ABG 87.2 mmHg (80.0-100.0)
--- OUTSIDE RECORDS SUMMARY | 2023-03-10 06:33 | XMS_ITS | Patient Health Record ---
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 (782013748) Problem Sacroiliitis, not elsewhere classified (M46.1) Active confirmed Solitary sacroiliitis (817330791) Problem Low back pain (M54.5) Active confirmed Low back pain (393723574) Problem Spondylosis without myelopathy or radiculopathy, lumbar region (M47.816) Active confirmed Lumbosacral spondylosis without myelopathy (48226295) Problem MCFP (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 of opiate analgesic (Z79.891) Active confirmed High risk drug monitoring status (250533691) Problem Enthesopathy, unspecified (M77.9) Active confirmed Enthesopathy (85854641) Problem Other specified anxiety disorders (F41.8) Active confirmed Anxiety disorde r (360780850) Problem Other sleep disorders (G47.8) Active confirmed Sleep diso rder (34405870) Problem Other chronic pain (G89.29) Active confirmed Chronic pain (91092268) Problem Intervertebral disc disorders with radiculopathy, lumbar region (M51.16) Active confirmed Radiculopathy d ue to lumbar intervertebral disc disorder (917459117079776) Problem Postlaminectomy syndrome, not elsewhere classified (M96.1) Active confirmed Post-lami nectomy syndrome (72626973) Problem Other senior care (current) drug therapy (Z79.899) Active confirmed Long-term current use of drug therapy (037967515) Problem Spinal stenosis, lumbar region with neurogenic claudication (M48.062) Active confirmed Neurogenic claudication (748921972) Problem Myalgia, other site (M79.18) Active confirmed Muscle pain (27727591) Problem Vertebrogenic low back pain (M54.51) Active confirmed Pain in l umbar spine (537447719) VITAL SIGNS Temperature 97.8 degrees Fahrenheit 12/19/2022 Blood pressure diastolic 58 mm Hg 09/19/2022 Oximetry 88 % 12/19/2022 Height 69 in 12/19/2022 Blood pressure systolic 131 mm Hg 09/19/2022 Weight 193.2 lbs 12/19/2022 BMI 28.53 kg/m2 12/19/2022 Encounters Encounter Location Date Provider Diagnosis [facility] [address] [place], [place] [id number] 03/20/2022 Kevin Smith Postlaminectomy syndrome, not elsewhere classified M96.1 ; Vertebrogenic low back pain M54.51 ; Spinal stenosis, lumbar region with neurogenic claudication M48.062 ; Sacroiliitis, not elsewhere classified M46.1 ; Spondylosis without myelopathy or radiculopathy, lumbar region M47.816 ; Intervertebral disc disorders with radiculopathy, lumbar region M51.16 ; Myalgia, other site M79.18 ; Enthesopathy, unspecified M77.9 ; Other sleep disorders G47.8 and 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 Z79.891 [facility] [address] [place], [place] [id number] 06/14/2022 Kevin Smith Postlaminectomy syndrome, not elsewhere classified M96.1 ; Vertebrogenic low back pain M54.51 ; Spinal stenosis, lumbar region with neurogenic claudication M48.062 ; Sacroiliitis, not elsewhere classified M46.1 ; Spondylosis without myelopathy or radiculopathy, lumbar region M47.816 ; Intervertebral disc disorders with radiculopathy, lumbar region M51.16 ; Myalgia, other site M79.18 ; Enthesopathy, unspecified M77.9 ; Other sleep disorders G47.8 and 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 Z79.891 [facility] [address] [place], [place] [id number] 09/19/2022 Kevin Smith Vertebrogenic low ba ck pain M54.51 ; Other chronic pain G89.29 ; Other sleep disorders G47.8 and MCFP (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 of opiate analgesic Z79.891 [facility] [address] [place], [place] [id number] 12/11/2022 Kevin Smith [facility] [address] [place], [place] [id number] 12/19/2022 Kisha Ann Vertebrogenic low ba ck pain M54.51 ; Other chronic pain G89.29 and Other sleep disorders G47.8 ASSESSMENTS Encounter Date Diagnosis Assessment Notes Treatment Notes Treatment Clinical Notes 12/19/2022 Vertebrogenic low back pain (ICD-10 - M54.51) Chronic lumbar spine pain 09/19/2022 Other chronic pain (ICD-10 - G89.29) Patient reports that his oxycodone pain medication allows him to be more active. Plan to continue current oral opioid medication 09/19/2022 Vertebrogenic low back pain (ICD-10 - M54.51) 06/14/2022 Postlaminectomy syndrome, not elsewhere classified (ICD-10 [...] for a Hurry Cane per patient preference 03/20/2022 Postlaminectomy syndrome, not elsewhere classified (ICD-10 [...] for a Hurry Cane per patient preference 03/20/2022 Spinal stenosis, lumbar region with neurogenic claudication (ICD-10 - M48.062) Severe stenosis at L4-5 as per prior imaging report. Patient had previously expressed little desire for additional neurosurgery such as L4-5 decompression. Patient had previously deferred on LESI (prior injections via other providers with history of no longer - term benefit). Patient subsequently underwent lumbar spine surgery with Dr. Moe in [place], [place] on 04/22/20, below 03/20/2022 Vertebrogenic low back pain (ICD-10 [...] lumbar spine surgery with Dr. Moe in [place], [place] on 04/22/20, below 12/19/2022 Other sleep disorder s (ICD-10 - G47.8) Patient confirms he continues to use nocturnal oxygen as prescribed by his PCP 12/19/2022 Other chronic pain (ICD-10 - G89.29) Patient reports that taking his pain medication allows him to walk for exercise and work in his yard. Plan to continue oral opioid medication management 09/19/2022 Other sleep disorder s (ICD-10 - [...] of benefit. 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 (ICD-10 - Z79.891) Plan urine toxicology screen today to monitor compliance regarding use of prescribed oxycodone and / or the presence of any unprescribed or illicit drug 06/14/2022 Sacroiliitis, not elsewhere classified (ICD-10 - M46.1) Left SI joint injection with history of fair (50%) diagnostic efficacy, however, some steroid benefit noted by patient to include ipsilateral limb symptom improvement 03/20/2022 Sacroiliitis, not elsewhere classified (ICD-10 - M46.1) Left SI joint injection with history of fair (50%) diagnostic efficacy, however, some steroid benefit noted by patient to include ipsilateral limb symptom improvement 03/20/2022 Spondylosis without myelopathy or radiculopathy, lumbar region (ICD-10 - M47.816) Bilateral L4 medial branch, bilateral L5 dorsal ramus RFA with history of efficacy. Sacral arthropathy has been noted to be a confounding variable in regards to lower lumbar pain 06/14/2022 Spondylosis without myelopathy or radiculopathy, lumbar region (ICD-10 - M47.816) Bilateral L4 medial branch, bilateral L5 dorsal ramus RFA with history of efficacy. Sacral arthropathy has been noted to be a confounding variable in regards to lower lumbar pain 06/14/2022 Intervertebral disc disorders with radiculopathy, lumbar region (ICD-10 - M51.16) 03/20/2022 Intervertebral disc disorders with radiculopathy, lumbar region (ICD-10 - M51.16) 03/20/2022 Myalgia, other site (ICD-10 - M79.18) TPIs with history of only transient benefit / no significant efficacy noted 06/14/2022 Myalgia, other site (ICD-10 - M79.18) TPIs with history of only transient benefit / no significant efficacy noted 06/14/2022 Enthesopathy, unspecified (ICD-10 - M77.9) Tendon steroid injections of right shoulder with efficacy that was greatly appreciated by patient 03/20/2022 Enthesopathy, unspecified (ICD-10 - M77.9) Tendon steroid injections of right shoulder with efficacy that was greatly appreciated by patient 03/20/2022 Other sleep disorder s (ICD-10 - G47.8) 2018 [facility] sleep study report has been reviewed. Would [...] noncompliance would be at patient's increased risk 06/14/2022 Other sleep disorder s (ICD-10 - G47.8) 2018 [facility] sleep study report has been reviewed. 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 [address] [address] [place] [address] [id number] Inder Caldwell Self - patient is the insured 3 [facility] [address] [address] [place] [address] [phone] [id number] Inder Caldwell Self - patient is the [...] Surgical History Surgery Date(Month/Year) Tonsillect[place], performed in [place], 1978 Lumbar fusion / fixation, performed in [place], [place], 1996 Removal of lumbar hardware / bony fusion added, performed in [place], [place], 2002 [place], [place] [facility] [place] [facility] [place] Right hip surgery, revision, performed i [facility], 2014 Colonoscopy, performed at [facility] by Dr. Joel, 12/2018 Left L4 hemilaminotomy with medial facetectomy and foraminotomy, performed at [facility] by Dr. Yaya Moe, 04/22/20 Hospitalization History Reason Date(Month/Year) Leukemia, 2004 Bone marrow transplant, 2005 UTI (turned into sepsis), treated at [facility] , 07/2022
--- NOTE | 2023-03-10 06:36 | ECG_ITS ---
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 Measurements Intervals [place] Rate: 73 P: 22 [place]: 251 QRS: -71 QRSD: 131 T: 53 QT: 409 QTc: 452 Interpretive Statements SINUS RHYTHM WITH FIRST DEGREE AV BLOCK WITH OCCASIONAL SUPRAVENTRICULAR PREMATURE COMPLEXES INTRAVENTRICULAR CONDUCTION DELAY [130+ ms QRS DURATION] Compared to ECG 03/09/2023 23:25:34 Intraventricular conduction delay now present Left anterior fascicular block no longer present Electronically Signed On 03-10-2023 10:09:02 CDT by Gladys Diana M.D. [id number]
[2023-03-10] MEDS: ondansetron 2 mg/ML SDV 2 mL 4 MG IVP (06:38)
--- NOTE | 2023-03-10 06:40 | CTR_ITS ---
PROCEDURE INFORMATION: Exam: CT Head Without Contrast Exam date and time: 03/10/2023 6:51 AM Age: 72 years old Clinical indication: Altered mental status/memory loss; Confusion or disorientation; Additional info: AMS TECHNIQUE: Imaging protocol: Computed tomography of the head without contrast. Radiation optimization: All CT scans at this facility use at least one of these dose optimization techniques: automated exposure control; mA and/or kV adjustment per patient size (includes targeted exams where dose is matched to clinical indication); or iterative reconstruction. REPORTING DATA: Count of CT and Cardiac NM exams in prior 12 months: This patient has received 9 known CTs and 0 known cardiac nuclear medicine studies in the 12 months prior to the current study. COMPARISON: CT head wo con* [id number] 07/14/2022 12:35 AM RADIATION DOSE METRICS: Total DLP (mGy-cm): 828.11 FINDINGS: Brain: Intracranial atherosclerosis. Mild cerebral and cerebellar atrophy. Normal differentiation of rojas-white matter. No acute intracranial hemorrhage. No midline shift. No masses. Cerebral ventricles: Ventricles are normal in caliber. Paranasal sinuses: Visualized paranasal sinuses are clear. Mastoid air cells: Mastoid air cells are clear. Bones/joints: No acute osseous findings. Soft tissues: Superficial soft tissues are within normal limits. CT/CT head wo con* [id number] IMPRESSION: No acute intracranial findings.
--- NOTE | 2023-03-10 06:40 | CTR_ITS ---
PROCEDURE INFORMATION: Exam: CTA Chest With Contrast Exam date and time: 03/10/2023 6:53 AM Age: 72 years old Clinical indication: Hyperventilation; Additional info: Hypoxia, evaluate for pe TECHNIQUE: Imaging protocol: Computed tomographic angiography of the chest with contrast. Exam focused on the arteries. 3D rendering (Not supervised by radiologist): MIP and/or 3D reconstructed images were created by the technologist. Radiation optimization: All CT scans at this facility use at least one of these dose optimization techniques: automated exposure control; mA and/or kV adjustment per patient size (includes targeted exams where dose is matched to clinical indication); or iterative reconstruction. Contrast material: OMNI 350; Contrast volume: 66 ml; Contrast route: INTRAVENOUS (IV); REPORTING DATA: Count of CT and Cardiac NM exams in prior 12 months: This patient has received 9 known CTs and 0 known cardiac nuclear medicine studies in the 12 months prior to the current study. COMPARISON: CT angio chest w abd pel w con 07/14/2022 12:39 AM RADIATION DOSE METRICS: Total DLP (mGy-cm): 451.81 FINDINGS: Tubes, catheters and devices: Right-sided chest port catheter terminates in the SVC. Pulmonary arteries: No central pulmonary thromboembolism. Aorta: Mild scattered calcific disease of the aorta and its major branches. Lungs: Subtotal collapse of the right lower lobe. Moderate left lower lobe atelectasis. Pleural spaces: Otdmnomy-oo-gfceg right pleural effusion, partially loculated. Uuepn-iy-qnnevsop left pleural effusion. Heart: Heart is enlarged. No pericardial effusion. Lymph nodes: Prominent mediastinal lymph nodes, unchanged. Bones/joints: No acute osseous findings. Soft tissues: Gynecomastia. Superficial soft tissues demonstrate mild diffuse anasarca. CT/CT angio chest PE protcl [id number] IMPRESSION: 1. No central pulmonary thromboembolism. 2. Zbjgjtmh-lb-fqgpx right pleural effusion, partially loculated. Hjoru-wj-wdswcdkz left pleural effusion. Subtotal collapse of the right lower lobe. Moderate left lower lobe atelectasis. 3. Cardiomegaly, stable. 4. Mediastinal lymphadenopathy, stable.
[2023-03-10] MEDS: iohexol 350 mg/mL 500 mL Btl (per mL) IV (07:07)
--- NOTE | 2023-03-10 07:08 | PC.NURSE ---
Rapid Response Patient received 0.4mg IVP Narcan at 0618 after receiving Oxycodone IR 10mg PO at 0320AM. Patient exhibiting confusion, inability to appropriately answer questions, and unable to obey commands appropriately. Patient pupils equal and reactive to light. Upkeep Mechanic weak but equal. No facial droop. Breathing even and unlabored. Dr. Preciado notified by patient care nurse Tamar of patient's AMS and the Narcan was ordered. Post Narcan administration patient awakened easily, had spontaneous eye opening and improved mental status. At 0628 patient slumped over and exhibited agonal breathing witnessed by NEISHA Vences. Rapid response called by this nurse. Sternal rub performed and ambu bag retrieved. Patient awakened and had spontaneous respirations within the time RT returned with ambu bag from outside room. DIGITAL MUSIC INSTRUCTOR arrived at bedside. Dr. Preciado ordered second dose of 0.4mg IVP Narcan along with stat ABG. Narcan 0.4mg IVP administered at 0630. ABG obtained by RT. EKG ordered by Dr. Preciado, obtained at 0636. Orders received to transfer patient to ICU. Patient transferred to ICU by NEISHA Boyle and NEISHA Castillo.
[2023-03-10] MEDS: ketorolac 30 mg/mL INJ 15 MG IVP (07:32)
--- NOTE | 2023-03-10 07:43 | PC.NURSE ---
This nurse went to patient's room around 0600 to administer morning meds. Patient would not open his eyes or respond to nurse, after a couple minutes patient would respond but speech was mumbled. This nurse went to have charge nurse lay eyes on patient. Patient began to wake up a little more and speech a little more clear, pupils equal reactive to light, pulp maker were even but weak,breathing was even and nonlaboured. No facial asymetry. Dr. preciado was notified of change in neuro status and that he did receive oxy ir at 0320. Dr. Preciado ordered narcan and an ABG. Narcan was administered and when RT came in to draw ABG patient became lethargic again and started to breath shallow. This nurse exited room and called Dr. Preciado to ask if she can come see patient. While on the phone with Dr. Preciado a rapid response was called as patient continued to decline in mentation and respiratory rate. Dr. Preciado came to beside and ordered another dose of narcan , ekg, head ct, zofran and transfer to ICU, patient was taken to CT by this Rn and Jonathan Lee and then taken to ICU where bedside report was given to IBIS rn. This nurse called and she did not answer, Marquise Jose was called and update given on change and transfer to Icu.
[2023-03-10] MEDS: FUROsemide 10 mg/mL SDV 4mL 40 MG IVP (09:01)
[2023-03-10] MEDS: insulin lispro 100 unit/1 mL SUBCUT ×2 (09:01→21:19)
--- NOTE | 2023-03-10 09:14 | P.CONIM_ITS ---
Providers/Reason For Consult Consulting Physician/Specialty*: Arthur Churchill DO/orthopedic surgery Reason for Consult*: Right proximal tibia fracture and proximal fibula fracture Requesting Physician: Dr. Nathan Luis Attending Physician: Jas Figueroa MD Primary Care Provider: Aparna Ann History of Present Illness History of Present Illness Inder Caldwell is a 72 year old male presented to the emergency department last night after sustaining a ground-level fall tripping over his oxygen cord and was found in the emergency department to have a right proximal tibia and fibula fracture. Patient has significant medical comorbidities. Patient has history of cardiomyopathy with CHF with EF of 45%, type 2 diabetes hypertension he also was recently found to have a malignant pleural effusion and currently waiting tr eatment plan with oncology. He does have history of classical Hodgkin's lymphoma treatment back in 2014. At baseline has multiple lower extremity ulcerations and follows with wound care. Patient was subsequently admitted by the hospitalist team and orthopedics was consulted for fracture treatment recommendations. Patient's been n.p.o. daughter and granddaughter at bedside. Patient's been treated for chronic bilateral lower extremity wound ulcerations. They state he has issues with healing wounds in the past that take long times. States of some redness to the bilateral lower extremity wounds Patient denies any fevers chills chest pain shortness of breath nausea or vomiting Review of Systems General: Reports: 10 or more systems reviewed and unremarkable except in HPI and below Medications/Allergies Home Medications Medication Instructions Recorded Confirmed Last Taken Type acetaminophen 650 mg 1,300 mg PO Q12H PRN Pain 08/13/19 03/10/23 Unknown History tablet,extended release (Tylenol Arthritis Pain) insulin lispro 100 unit/mL See Rx Instructions .Route .COMPLEX 07/02/20 03/10/23 03/08/22 History subcutaneous solution (Humalog U-100 Insulin) dimenhydrinate 50 mg tablet 50 mg PO Q8H PRN Dizziness 03/09/22 03/10/23 Unknown History (Dramamine) [id number] 300 mcg-K 60 1 tab PO QAM 03/09/22 03/10/23 02/10/23 History mcg-lycop 600 mcg-lutein 300 mcg tablet (Centrum Silver Men) albuterol sulfate 90 mcg/actuation 2 puff inhalation Q6H PRN 03/21/22 03/10/23 Unknown Rx aerosol inhaler (ProAir HFA) shortness of breath or wheezing #8.5 grams Diabetic shoes #2 ea 10/24/22 03/10/23 Unknown Rx sucralfate 1 gram tablet (Carafate) 1 g PO Q6H #60 tabs 11/14/22 03/10/23 02/10/23 Rx ondansetron 4 mg disintegrating 4 mg PO Q6H PRN nausea and 12/04/22 03/10/23 Un known Rx tablet vomiting #90 tabs Compression stockings - 8-15mmHg #1 ea 12/26/22 03/10/23 Unknown Rx hydroxyzine HCl 10 mg tablet 10 mg PO QAM 02/10/23 03/10/23 02/10/23 History SEE PHARMACY COMMENT metolazone 5 mg tablet 5 mg PO DAILY 02/10/23 03/10/23 02/09/23 History FINISHED PER oxycodone 10 mg tablet 10 - 20 mg PO .EVERY 4-6 HOURS PRN 02/10/23 03/10/23 Unknown History Pain pantoprazole 40 mg tablet,delayed 40 mg PO QAM 02/10/23 03/10/23 02/10/23 History release tamsulosin 0.4 mg capsule 0.4 mg PO QAM 02/10/23 03/10/23 02/10/23 History bisacodyl 5 mg tablet,delayed 10 mg PO DAILY PRN Constipation 02/16/23 03/10/23 Unknown Rx release (see protocol) #30 tabs furosemide 20 mg tablet 40 mg PO QAM #30 tabs 02/16/23 03/10/23 02/10/23 Rx lactulose 20 gram/30 mL oral 10 g (15 mL) PO TID #1,200 mL 02/16/23 03/10/23 Unknown Rx solution potassium chloride 10 mEq 10 meq PO DAILY #30 tabs 02/19/23 03/10/23 Unknown Rx tablet,extended release spironolactone 50 mg tablet 50 mg PO BID #60 tabs 02/19/23 03/10/23 Unknown Rx gabapentin 600 mg tablet See Rx Instructions .Route 02/23/23 03/10/23 Unknown Rx .COMPLEX #120 tabs losartan 25 mg tablet 25 mg PO DAILY 03/10/23 03/10/23 Unknown History Allergies Allergy/AdvReac Type Severity Reaction Status Date / Time methadone Allergy Unknown Unknown Verified 02/10/23 12:09 carisoprodol [From Soma] Allergy Unknown Verified 02/10/23 12:09 codeine Allergy Unknown Verified 02/10/23 12:09 morphine Allergy Unknown Verified 02/10/23 12:09 Current Medications Generic Name Dose Route Start Last Admin Trade Name Freq PRN Reason Stop Dose Admin Enoxaparin Sodium 40 mg 03/10/23 03:00 03/10/23 03:21 Enoxaparin 40 Mg/0.4 Ml Syringe SUBCUT 40 mg Q24H SHIRA Administration Insulin Human Lispro 0 unit 03/10/23 08:00 03/10/23 09:01 Insulin Lispro 100 Unit/1 Ml SUBCUT 4 unit WM&BEDTIME SHIRA Administration Protocol Ketorolac Tromethamine 15 mg 03/10/23 06:42 03/10/23 07:32 Ketorolac 30 Mg/Ml Inj IVP 03/15/23 06:41 15 mg Q8H PRN Administration MODERATE PAIN Non-Formulary Medication 10 mg 03/10/23 06:00 03/10/23 06:01 Hydroxyzine Hcl PO Not Given QAM [facility] Ondansetron HCl 4 mg 03/10/23 02:56 03/10/23 06:38 Ondansetron 2 Mg/Ml Sdv 2 Ml IVP 4 mg Q8H PRN Administration vomiting, or N/V if npo Pantoprazole Sodium 40 mg 03/10/23 06:00 03/10/23 06:[address] 40 Mg Tablet PO Not Given QAM [facility] Sucralfate 1 gm 03/10/23 09:00 03/10/23 08:55 Sucralfate 1 Gm Tablet PO Not Given TID [facility] Tamsulosin HCl 0.4 mg 03/10/23 06:00 03/10/23 06:01 Tamsulosin 0.4 Mg Capsule PO Not Given QAM SHIRA PFSH Acute PFSH: Medical History Acute cystitis CHENCHO (acute kidney injury) Altered mental status Cardiomyopathy CHF (congestive heart failure) Degenerative arthritis Degenerative joint disease of spine Essential hypertension GERD (gastroesophageal reflux disease) Gram-positive bacteremia 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 History of pericarditis 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 Hypernatremia Iron overload 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 Myelodysplastic syndrome Initially diagnosed in July 2002 NSTEMI (non-ST elevated myocardial infarction) Obstructive sleep apnea Peripheral neuropathy Pleural effusion Rib fracture Sepsis Septic shock Type 2 diabetes mellitus without complications Surgical History History of cholecystectomy History of lumbar laminectomy History of tonsillectomy History of total right hip arthroplasty (2015) S/P ORIF (open reduction internal fixation) fracture (2014) Status post creation of pericardial window (2008) Social History Smoking and tobacco/nicotine status: never used tobacco/nicotine Vitals/I&O/Wt Last Vital Signs Temp 99.0 F 03/10/23 08:00 Pulse 72 03/10/23 08:00 Resp 15 03/10/23 08:00 BP 143/55 03/10/23 08:00 Pulse Ox 99 03/10/23 08:00 O2 Del Method Nasal Cannula 03/10/23 08:00 O2 Flow Rate 3 03/10/23 08:00 03/09/23 03/10/23 03/10/23 22:59 06:59 14:59 Output Total 100 / 100 Balance -100 / -100 Weight last 48 hrs Weight 210 lb Physical Exam Narrative: Orthopedic examination: Patient ill-appearing, cachectic and having Bledsoe placed at bedside in the ICU. He is alert and able to communicate. He states and complains of pain to the right lower extremity. Examination of the right lower extremity demonstrates swelling at the proximal tibia as well as the distal aspect of the right lower extremity. Pitting edema noted with chronic venous stasis changes as well as bilateral tibial excoriations and ulceration wounds noted. More pronounced erythema noted on the right lower extremity below the site of the fracture significant tenderness to palpation at the fracture site no significant clinical deformity noted. Mild palpable joint effusion. Patient has no pain with logroll examination with healed incision up in the right hip. Patient has negative logroll of the left lower extremity with left lower extremity ulcerations and swelling noted. Secondary survey examination demonstrates no pain or tenderness to palpation of the bilateral upper extremity joints with ability to move the bilateral upper extremity joints with no pain or discomfort. No clinical deformities noted to bilateral upper extremities with no tenderness to palpation. Data 03/09/23 23:23 03/09/23 23:23 Xray Ortho: My impression: Review of patient's x-rays demonstrate stable right total hip arthroplasty, x- rays of the knee and the tib-fib demonstrate a proximal third and proximal fi bula fracture there does appear to be a single nondisplaced fracture line that extends up into the intercondylar notch.'s review of CT scan demonstrates a proximal third and proximal tibia fracture there is a nondisplaced intra- articular vertical fracture Line that extends up into the intercondylar notch no displacement noted. Overall the fracture appears to be in good alignment with no Articular step-off or displacement. Calcific lesion noted in the proximal tibia Radiologist's impression: XR/XR knee RT 3V* [id number] IMPRESSION: 1. ? Acute, mildly impacted fracture of the proximal shaft of the tibia. The fracture extends to the tibial plateau. 2. ? Acute fracture of the proximal shaft of the fibula. ? XR/XR hip RT 2-3V wo/w pel* [id number] IMPRESSION: 1. ? Right hip prosthesis noted. 2. ? No acute fracture demonstrated. 3. ? There is no interval change from the prior examination. XR/XR tibia fibula RT 2V [id number] IMPRESSION: 1. ? Fractures of the proximal tibia and proximal fibula. Please see accompanying XR right knee report for details. 2. ? Distal tibia and distal fibula are intact. Ordering Provider/Ordering MD: Nathan Luis DO Date of Service: 03/09/23 Procedure(s): CT lower leg RT wo con* [id number] Accession Number(s): [id number] Report Number: [id number] PROCEDURE INFORMATION: Exam: CT Right Lower Extremity Without Contrast; Lower Leg Exam date and time: 03/09/2023 10:56 PM Age: 72 years old Clinical indication: Injury or trauma; Blunt trauma; Lower leg; Right; Patient HX: Fall earlier this evening. Tibial impact fracture noted on plain films. ; Additional info: Tibia and fibula fractures TECHNIQUE: Imaging protocol: CT of the right lower extremity without contrast was performed. Exam focused on the lower leg. Radiation optimization: All CT scans at this facility use at least one of these dose optimization techniques: automated exposure control; mA and/or kV adjustment per patient size (includes targeted exams where dose is matched to clinical indication); or iterative reconstruction. REPORTING DATA: Count of CT and Cardiac NM exams in prior 12 months: This patient has received 8 known CTs and 0 known cardiac nuclear medicine studies in the 12 months prior to the current study. COMPARISON: CR (LOW EXM, ) 03/09/2023 8:41 PM RADIATION DOSE METRICS: Total DLP (mGy-cm): 480.48 FINDINGS: Bones/joints: Fracture of the proximal tibia. The fracture is located approximately 8 cm distal to the articular surface. Fracture is mildly impacted. Vertical component of the fracture extends cephalad to the tibial plateau. Mildly impacted fracture of the proximal fibula. The distal tibia is intact. The distal fibula is intact. Soft tissues: Subcutaneous edema is noted. The musculature appears unremarkable. CT/CT lower leg RT wo con* [id number] IMPRESSION: 1. ? Acute fracture of the proximal tibia, as above. 2. ? Mildly impacted fracture of the proximal fibula also noted. A&P Assessment and plan (1) Fracture of proximal end of right tibia: (2) Multifocal lung consolidation: (3) Bilateral pleural effusion: (4) Malignant pleural effusion: (5) Anemia: (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: (7) Type 2 diabetes, controlled, with neuropathy: Plan Nonweightbearing right lower extremity Knee immobilizer Patient may mobilize with with therapy but should maintain strict nonweightbearing to the right lower extremity and maintain knee immobilizer Ice and elevate as needed for pain and swelling Pain control DVT prophylaxis per primary with recommend Lovenox at discharge Given patient's oncologic history would like to rule out pathologic fracture and would recommend an MRI for evaluation as patient has lesion noted in the proximal tibia Orthopedics will follow along the follow-up after MRI At this point in time we will nonoperative treatment Orthopedics will continue to follow along Talked about his care in detail with him as well as his family at bedside. Patient has a significant amount of medical comorbidities and significant bi lateral lower extremity wound ulcerations. Particularly the right side has some erythema noted and currently receiving antibiotics per the primary team just for infection prophylaxis does not appear to have any signs of a rapid progressing infection. Talking with family his baseline is very limited mobility just transferring up to a chair. He does not ambulate much at baseline. At this point in time we talked about treatment options and through shared decision making we both agree in his best interest of his overall health to treat this nonoperatively which I think is a good option given this is in good alignment his ambulatory status is minimal and he does have significant lower extremity ulcerations. We will treat this nonoperatively in a knee immobilizer will have localized wound care to the bilateral lower extremity wounds. Will defer to primary for antibiotics for these. Would recommend an MRI of the right tibia to evaluate for any type of pathologic lesion is on x-ray there does appear to have some calcification and lesions noted in the proximal tibia and given his previ ous oncologic history would recommend this. Patient and family understand agree with current plan. Questions answered. We will follow-up with patient until MRI is complete. Coding Level of Care Code Acute Code for Chg Fwd Diagnoses Fracture of proximal end of right tibia S82.101A Multifocal lung consolidation J18.1 Bilateral pleural effusion J90 Malignant pleural effusion J91.0 Anemia D64.9 Hodgkin lymphoma of intrathoracic lymph nodes C81.92 Type 2 diabetes, controlled, with neuropathy E11.40 Time Spent (min) 60
--- NOTE | 2023-03-10 09:21 | USR_ITS ---
PROCEDURE INFORMATION: Exam: US Duplex Lower Extremity Veins, Bilateral Exam date and time: 03/10/2023 12:28 PM Age: 72 years old Clinical indication: Edema, localized; Lower extremity, bilateral; Additional info: Dvt TECHNIQUE: Imaging protocol: Real-time duplex ultrasound of the bilateral extremities with 2-D rojas scale, color Doppler flow and spectral waveform analysis including responses to compression and other maneuvers (when performed) with image documentation. Complete exam focused on the lower extremity veins. COMPARISON: CT lower leg RT wo con* [id number] 03/09/2023 10:56 PM FINDINGS: Right deep veins: Unremarkable. The common femoral, femoral, proximal profunda femoral and popliteal veins are patent without thrombus. Normal Doppler waveforms. Normal compressibility and/or augmentation response. Left deep veins: Unremarkable. The common femoral, femoral, proximal profunda femoral and popliteal veins are patent without thrombus. Normal Doppler waveforms. Normal compressibility and/or augmentation response. Superficial veins: Bilateral saphenofemoral junctions are patent without thrombus. Soft tissues: Unremarkable. US/CV venous duplex [facility] [id number] IMPRESSION: No evidence of deep vein thrombosis.
[2023-03-10 09:58] LABS: Troponin(5th) Baseline 63 ng/L (0-15)
[2023-03-10 10:05] LABS: NT Pro B Type Natriuretic Pept 17749 pg/mL (0-125); Procalcitonin 0.23 ng/mL (0-0.5)
[2023-03-10 10:08] LABS: Erythrocyte Sedimentation Rate 34 mm/hr (0-10)
[2023-03-10 10:10] LABS: Add Urine Microscopic? NO; Charge for UA Resulting for Rev
--- NOTE | 2023-03-10 10:14 | ECG_ITS ---
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 Measurements Intervals [place] Rate: 62 P: 5 [place]: 231 QRS: -70 QRSD: 134 T: 62 QT: 449 QTc: 458 Interpretive Statements SINUS RHYTHM WITH FIRST DEGREE AV BLOCK INTRAVENTRICULAR CONDUCTION DELAY [130+ ms QRS DURATION] Compared to ECG 03/10/2023 10:14:36 Sinus arrhythmia no longer present Electronically Signed On 03-10-2023 17:53:09 CDT by Gladys Diana M.D. [id number]
--- NOTE | 2023-03-10 10:14 | ECG_ITS ---
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 Measurements Intervals [place] Rate: 67 P: 32 CT: 267 QRS: -69 QRSD: 134 T: 52 QT: 420 QTc: 443 Interpretive Statements SINUS RHYTHM WITH SINUS ARRHYTHMIA WITH FIRST DEGREE AV BLOCK INTRAVENTRICULAR CONDUCTION DELAY [130+ ms QRS DURATION] Compared to ECG 03/10/2023 06:36:52 No significant changes Electronically Signed On 03-10-2023 13:10:12 CDT by Gladys Diana M.D. [id number]
[2023-03-10 10:16] LABS: C Reactive Protein 130.1 mg/L (0.0-4.9)
[2023-03-10] MEDS: cefTRIAXone 1,000 MG in sodium chloride 0.9% (plus) 50 ML 100 MG IV (10:18)
[2023-03-10] MEDS: lanolin oint 7 gm 1 APPLIC TOPICAL (10:25)
[2023-03-10] MEDS: vancomycin 1,250 MG/250 ML PIGGYBACK 200 MG IV ×2 (10:53→21:16)
[2023-03-10 10:59] LABS: Bilirubin Urine Neg (Negative); Blood Urine Neg (Negative); Glucose Urine UA Norm (Normal); Ketones Urine Negative (Negative); Leukocyte Esterase Urine Negative (Negative); Nitrate Urine Negative (Negative); Protein Urine Neg (Negative); Urine Appearance Clear (CLEAR); Urobilinogen Urine 1 mg/dL (Negative); pH Urine 5 (5-7)
[2023-03-10 11:00] LABS: Urine Color Yellow (Yellow)
[2023-03-10 11:40] LABS: Glucose Point of Care 84 mg/dL (70-110)
[2023-03-10 12:15] LABS: Troponin 5 2HR 60.69 ng/L (0-15)
[2023-03-10 12:16] LABS: Troponin 5 2HR Delta -2.31 ABS# (0-10)
[2023-03-10] MEDS: sucralfate 1 gm Tablet PO ×2 (14:20→20:04)
--- NOTE | 2023-03-10 14:59 | PC.NURSE ---
recieved from 2nd floor post rapid response having decreased mental status noted phan inserted and lasix given .. monitor vital signs ..several loose bms. inconvenient ros care done and dressings changed on all wounds legs
--- NOTE | 2023-03-10 15:34 | PM.PN ---
Subjective Subjective: Patient was seen multiple times at the morning, he does awaken, but falls back asleep, later on throughout the morning, he becomes much more alert awake, family was seen early this morning with patient at bedside, thorough physical exam was done, he has right lower extremity, swelling, erythema, tenderness to palpation, left lower extremity, second digit, he has a shallow ulcer at the tip, bone exposed, wrapped, recently debrided, clean borders, he has multiple superficial ulcers of bilateral lower extremities, which were undressed, which look clean, he has had a left hip replacement surgical site is clean dry, back examination, he has had a spinal surgery in the past surgical scar scar looks clean and dry, family reports that he takes oxycodone 10 every 6 hours as needed for his pain, family tells me that he is currently being investigated for malignant pleural effusion, they tell me that initially they were told it was negative, now they are being told that potentially the repeat pathology and fluid sample shows that there is no evidence of malignancy so there is plans on a PET scan as outpatient, Vitals/I&O/Wt Last Vital Signs Temp 99.0 F 03/10/23 08:00 Pulse 64 03/10/23 14:00 Resp 21 H 03/10/23 14:21 BP 118/75 03/10/23 12:00 Pulse Ox 96 03/10/23 14:21 O2 Del Method Nasal Cannula 03/10/23 12:00 O2 Flow Rate 2 03/10/23 12:00 03/10/23 03/10/23 03/10/23 06:59 14:59 22:59 Intake Total 350 / 350 Output Total 100 / 100 Balance -100 / -100 350 / 350 Weight last 48 hrs Weight 95.254 kg Physical Exam Const: COMMON NORMALS: no acute distress Resp: COMMON NORMALS: normal respiratory effort, No retractions and No use of accessory muscles AUSCULTATION: crackles Cardio: COMMON NORMALS: regular rate, regular rhythm, S1 normal heart sound present and S2 normal heart sound present RATE: regular rate RHYTHM: regular rhythm HEART SOUNDS: S1 normal heart sound present and S2 normal heart sound present GI: COMMON NORMALS: Normal to inspection, nondistended, normoactive bowel sounds present and non-tender Extremity: NARRATIVE EXTREMITY EXAM: Bilateral 1+ pitting edema Psych: COMMON NORMALS: mental status grossly normal Urinary Catheter Management: Bledsoe: Cath Placed During This Visit: yes Urinary Catheter Date of Insertion: 03/10/23 Urinary Catheter Time of Insertion: 09:45 Data 03/09/23 23:23 03/09/23 23:23 Micro: Microbiology 03/10/23 10:00 Blood Culture - Preliminary Blood SPECIMEN COLLECTED 03/10/23 09:45 Blood Culture - Preliminary Blood SPECIMEN COLLECTED A&P Assessment and plan (1) Fracture of proximal end of right tibia: Suffered after mechanical fall. Orthopedic service has been consulted from the emergency room, awaiting assessment N.p.o. for now in case surgical intervention may be needed in the morning. Continue home dose of oxycodone 10 mg p.o. every 6 hours as needed MRI Continue home dose of gabapentin. (2) Anemia: Chronic, longstanding,'s worsening since July 2022, slowly declining from 10.8 earlier this year to 8.5 today. No active signs of bleeding. Continue to closely monitor. Not on any iron on Venofer supplementation due to high ferritin levels as outpatient. (3) CHF (congestive heart failure): Recent admission for the same. This is chronic, longstanding Continue home dose of Lasix currently. Will need to verify if patient is still taking metolazone, on last discharge it appears this was only prescribed to be taken for 3 days. Qualifiers: Heart failure chronicity: acute on chronic Heart failure type: unspecified Qualified Code(s): I50.9 - Heart failure, unspecified (4) Cellulitis: Right lower extremity, below fracture site, erythema, swelling, possible cellulitis, with his open wounds that have been receiving dressing changes start vancomycin, Rocephin, CRP, Pro-Richie, blood cultures (5) Bilateral pleural effusion: We will continue diuretic therapy (6) Type 2 diabetes, controlled, with neuropathy: Low-dose sliding scale (7) Cardiomyopathy: (8) Systolic CHF, acute: Has bilateral extremity 1+ pitting edema, with crackles on exam ? Serial EKGs, short ones, telemetry monitoring, BNP over 17,000, Lasix 40 mg IV push once (9) NSTEMI (non-ST elevated myocardial infarction): No chest pain complaints, Fortino's concern troponins, telemetry monitoring (10) Myelodysplastic syndrome: (11) Essential hypertension: (12) Acute on chronic anemia: We will continue to monitor (13) Opiate poisoning: - Opiate poisoning, received Dilaudid, with oxycodone, resulting in respiratory disruption, status post 2 doses of Narcan -Currently respiratory rate 12-14, has crackles on exam, can awaken, -We will monitor in ICU -Once mentation improved, continue narcotic oxycodone to avoid withdrawal Plan DVT prophylaxis: Lovenox Attestations Medical Necessity Statement*: Patient requires hospitalization for fall, fracture, now with opiate accidental poisoning, with systolic CHF, concerns for cellulitis, NSTEMI, Diagnoses Fracture of proximal end of right tibia S82.101A Anemia D64.9 CHF (congestive heart failure) I50.9 Heart failure chronicity: acute on chronic Heart failure type: unspecified Cellulitis L03.90 Bilateral pleural effusion J90 Type 2 diabetes, controlled, with neuropathy E11.40 Cardiomyopathy I42.9 Systolic CHF, acute I50.21 NSTEMI (non-ST elevated myocardial infarction) I21.4 Myelodysplastic syndrome D46.9 Essential hypertension I10 Acute on chronic anemia D64.9 Opiate poisoning T40.601A
[2023-03-10 16:24] LABS: Troponin 5 6HR 62.08 ng/L (0-15)
[2023-03-10 16:31] LABS: Troponin 5 6HR Delta -0.92 ng/L (0-12)
[2023-03-10 17:28] LABS: Glucose Point of Care 140 mg/dL (70-110)
[2023-03-10] MEDS: trazodone 50 mg Tablet PO (21:07)
[2023-03-10] MEDS: acetaminophen 325 mg Tablet 650 MG PO (21:08)
[2023-03-10 21:16] LABS: Glucose Point of Care 204 mg/dL (70-110)
[2023-03-11] VITALS (22 sets, daily range): BP systolic 118–149; BP diastolic 55–100; PULSE 56–85; RESP 12–20; TEMP 36.4–37.2; O2SAT 95–99
[2023-03-11] MEDS: enoxaparin 40 mg/0.4 mL Syringe SUBCUT (02:04)
[2023-03-11] MEDS: pantoprazole DR 40 mg Tablet PO (04:24)
[2023-03-11] MEDS: oxyCODONE 5 mg IR Tab/Cap 10 MG PO ×4 (04:24→20:28)
[2023-03-11] MEDS: tamsulosin 0.4 mg Capsule PO (04:24)
[2023-03-11 04:46] LABS: Basophils % 0.8 %; Eosinophils # 0.2 10^3/uL (0.0-0.8); Eosinophils % 4.8 %; Lymphocytes # 1.1 10^3/uL (0.8-4.8); Lymphocytes % 27.7 %; Mean Corpuscular HGB Conc 28.1 g/dL (30-55); Mean Corpuscular Hemoglobin 25.7 pg (27-33); Mean Corpuscular Volume 91.2 fl (82-101); Mean Platelet Volume 11.2 fL (7.4-10.4); Monocytes # 0.4 10^3/uL (0.2-0.9); Monocytes % 9.6 %; Neutrophils # 2.24 10^3/uL (1.8-7.7); Neutrophils % 56.8 %; Nucleated Red Blood Cells % 0 %; Platelet Count 123 10^3/cmm (157-399); Red Blood Count 2.96 10^6/uL (3.85-5.65); Red Cell Distribution Width 17.6 % (12.1-15.1); White Blood Count 3.94 10^3/uL (3.29-11.43)
[2023-03-11 05:14] LABS: Alanine Aminotransferase 11 U/L (0-41); Albumin Level 2.6 g/dL (3.5-5.2); Alkaline Phosphatase 273 U/L (40-130); Anion Gap 9.4 (5-19); Aspartate Amino Transferase 15 U/L (0-40); Blood Urea Nitrogen 20 mg/dL (8-23); Calcium 8.1 mg/dL (8.5-10.5); Carbon Dioxide 31 mmol/L (22-29); Chloride 105 mmol/L (98-107); Creatinine Clr Calc Pharmacy 85.4925; Globulin 3.7 g/dL (1.3-4.6); Glomerular Filtration Rate 83.4 mL/min (90-130); Glucose 62 mg/dL (65-115); Osmolality Calculated 293 mOsm/kg (285-295); Potassium 4.4 mmol/L (3.5-5.1); Sodium 141 mmol/L (136-145); Total Bilirubin 0.4 mg/dL (0.15-1.2); Total Protein 6.3 g/dL (6.6-8.7)
[2023-03-11 06:21] LABS: Slide Review Slide Review Perform
[2023-03-11 08:00] LABS: Glucose Point of Care 92 mg/dL (70-110)
[2023-03-11] MEDS: ondansetron 2 mg/ML SDV 2 mL 4 MG IVP (08:49)
[2023-03-11] MEDS: FUROsemide 10 mg/mL SDV 4mL 40 MG IVP (09:06)
[2023-03-11] MEDS: sucralfate 1 gm Tablet PO ×3 (09:06→20:28)
[2023-03-11] MEDS: cefTRIAXone 1,000 MG in sodium chloride 0.9% (plus) 50 ML 100 MG IV (09:06)
[2023-03-11] MEDS: spironolactone 25 mg Tablet 50 MG PO ×2 (09:25→18:06)
[2023-03-11] MEDS: gabapentin 300 mg Capsule 600 MG PO ×2 (09:25→18:07)
[2023-03-11] MEDS: vancomycin 1,250 MG/250 ML PIGGYBACK 200 MG IV ×2 (09:43→22:59)
--- NOTE | 2023-03-11 10:47 | PC.NURSE ---
report called to 2nd floor for transfer at this time supervisor multifocal lens transfered to room 271 family notified at this time
[2023-03-11 11:40] LABS: Glucose Point of Care 175 mg/dL (70-110)
[2023-03-11 11:42] LABS: Hematocrit 27.6 % (37-53)
[2023-03-11 11:55] LABS: Ferritin 650 ng/mL (30-400); Iron 17 ug/dL (59-158)
[2023-03-11] MEDS: insulin lispro 100 unit/1 mL SUBCUT ×3 (12:30→21:51)
--- NOTE | 2023-03-11 13:15 | P.PN_ITS ---
Subjective Subjective: Patient was seen this morning, he is sitting up in bed, enjoying his clear liquid diet, does report lower extremity edema, no shortness of breath, no cough, does report right lower extremity pain, alert to person, to place, not to time, can follow commands Vitals/I&O/Wt Last Vital Signs Temp 97.5 F L 03/11/23 00:00 Pulse 68 03/11/23 08:30 Resp 16 03/11/23 11:36 BP 133/100 03/11/23 08:30 Pulse Ox 97 03/11/23 08:25 O2 Del Method Nasal Cannula 03/11/23 08:25 O2 Flow Rate 2 03/11/23 08:25 03/10/23 03/11/23 03/11/23 23:59 06:59 14:59 Intake Total 615 / 615 Output Total Balance 615 / 615 Weight last 48 hrs Weight 95.254 kg Physical Exam Const: COMMON NORMALS: no acute distress and patient oriented x3 Resp: COMMON NORMALS: normal respiratory effort, No retractions, No use of accessory muscles and clear to auscultation bilaterally AUSCULTATION: clear to auscultation bilaterally Cardio: COMMON NORMALS: regular rate, regular rhythm, S1 normal heart sound present and S2 normal heart sound present RATE: regular rate RHYTHM: regular rhythm HEART SOUNDS: S1 normal heart sound present and S2 normal heart sound present GI: COMMON NORMALS: Normal to inspection, nondistended, normoactive bowel sounds present and non-tender Extremity: NARRATIVE EXTREMITY EXAM: Right lower extremity in a brace, bilateral 1+ pitting edema Neuro: COMMON NORMALS: patient oriented x3 Psych: COMMON NORMALS: mental status grossly normal Urinary Catheter Management: Bledsoe: Cath Placed During This Visit: yes Reason for Continuing Indwelling Catheter: Acute Urinary Retention or Obstruction Urinary Catheter Date of Insertion: 03/10/23 Urinary Catheter Time of Insertion: 09:45 Data 03/11/23 11:35 03/11/23 04:20 Micro: Microbiology 03/10/23 10:00 Blood Culture - Preliminary Blood NEGATIVE TO DATE 03/10/23 09:45 Blood Culture - Preliminary Blood NEGATIVE TO DATE A&P Assessment and plan (1) Fracture of proximal end of right tibia: Suffered after mechanical fall. Orthopedic service has been consulted from the emergency room, awaiting assessment Currently in a knee immobilizer ? MRI has been ordered Continue home dose of oxycodone 10 mg p.o. every 6 hours as needed Continue home dose of gabapentin. (2) Anemia: Chronic, longstanding,'s worsening since July 2022, slowly declining from 10.8 earlier this year to 8.5 today. No active signs of bleeding. Continue to closely monitor. Not on any iron on Venofer supplementation due to high ferritin levels as outpatient. (3) CHF (congestive heart failure): Recent admission for the same. This is chronic, longstanding Has 1+ pitting edema, 1 dose of IV Lasix today Will need to verify if patient is still taking metolazone, on last discharge it appears this was only prescribed to be taken for 3 days. Qualifiers: Heart failure chronicity: acute on chronic Heart failure type: unspecified Qualified Code(s): I50.9 - Heart failure, unspecified (4) Cellulitis: Right lower extremity, below fracture site, erythema, swelling, possible cellulitis, with his open wounds that have been receiving dressing changes start vancomycin, Rocephin, CRP, Pro-Richie, blood cultures (5) Bilateral pleural effusion: We will continue diuretic therapy (6) Type 2 diabetes, controlled, with neuropathy: Low-dose sliding scale (7) Cardiomyopathy: (8) Systolic CHF, acute: Has bilateral extremity 1+ pitting edema, with crackles on exam ? Serial EKGs, short ones, telemetry monitoring, BNP over 17,000, Lasix 40 mg IV push once (9) NSTEMI (non-ST elevated myocardial infarction): No chest pain complaints, Fortino's concern troponins, telemetry monitoring (10) Myelodysplastic syndrome: (11) Essential hypertension: (12) Acute on chronic anemia: We will continue to monitor (13) Opiate poisoning: -Resolved - Opiate poisoning, received Dilaudid, with oxycodone, resulting in respiratory disruption, status post 2 doses of Narcan -Currently respiratory rate 12-14, has crackles on exam, can awaken, -We will monitor in ICU -Once mentation improved, continue narcotic oxycodone to avoid withdrawal Plan DVT prophylaxis: Lovenox Will monitor on MedSurg, knee immobilizer, MRI of the knee ordered, Lasix do sing, monitor biotics, Attestations Medical Necessity Statement*: Patient requires hospitalization for fall and fracture, continue to conservatively manage, treat for cellulitis, treat for fluid overload, systolic CHF exacerbation Diagnoses Fracture of proximal end of right tibia S82.101A Anemia D64.9 CHF (congestive heart failure) I50.9 Heart failure chronicity: acute on chronic Heart failure type: unspecified Cellulitis L03.90 Bilateral pleural effusion J90 Type 2 diabetes, controlled, with neuropathy E11.40 Cardiomyopathy I42.9 Systolic CHF, acute I50.21 NSTEMI (non-ST elevated myocardial infarction) I21.4 Myelodysplastic syndrome D46.9 Essential hypertension I10 Acute on chronic anemia D64.9 Opiate poisoning T40.601A
[2023-03-11] MEDS: dexamethasone 10 mg/mL INJ 6 MG IVP (13:45)
--- NOTE | 2023-03-11 17:35 | PC.NURSE ---
Patient refused to let me take his ACU check and wanted me to use his dexcom. Dexcom reading was 149 nurse was notified
[2023-03-11 18:34] LABS: Hematocrit 29.5 % (37-53)
[2023-03-11] MEDS: acetaminophen 325 mg Tablet 650 MG PO (20:27)
[2023-03-11] MEDS: lidocaine 5% Patch 1 PATCH TOPICAL (20:28)
[2023-03-11 21:30] LABS: Glucose Point of Care 223 mg/dL (70-110)
[2023-03-11 21:34] LABS: Vancomycin Trough 19.5 ug/mL (10-15)
--- NOTE | 2023-03-11 21:54 | PM.PN ---
Subjective Subjective: Patient's been transferred out ICU and recovering well he is on the floor today. Family at bedside patient is a knee immobilizer pain is controlled medications Vitals/I&O/Wt Last Vital Signs Temp 98.9 F 03/11/23 20:00 Pulse 85 03/11/23 20:00 Resp 17 03/11/23 20:28 BP 129/65 03/11/23 20:00 Pulse Ox 97 03/11/23 20:28 O2 Del Method Nasal Cannula 03/11/23 08:25 O2 Flow Rate 2 03/11/23 08:25 03/11/23 03/11/23 03/11/23 06:59 14:59 22:59 Intake Total 615 / 615 480 / 1095 Output Total 1675 / 1675 Balance 615 / 615 -1195 / -580 Physical Exam Narrative: Orthopedic examination: Patient more alert and communicative this morning, and in knee immobilizer, gross motor and sensory intact of the right lower extremity dressings on in place to the right lower extremity wounds. Patient able to toes plantarflex and dorsiflex ankle sensations intact light touch distally. Urinary Catheter Management: Bledsoe: Cath Placed During This Visit: yes Reason for Continuing Indwelling Catheter: Acute Urinary Retention or Obstruction Urinary Catheter Date of Insertion: 03/10/23 Urinary Catheter Time of Insertion: 09:45 Data 03/11/23 18:10 03/11/23 04:20 Micro: Microbiology 03/10/23 10:00 Blood Culture - Preliminary Blood NEGATIVE TO DATE 03/10/23 09:45 Blood Culture - Preliminary Blood NEGATIVE TO DATE A&P Assessment and plan (1) Fracture of proximal end of right tibia: (2) Multifocal lung consolidation: (3) Bilateral pleural effusion: (4) Malignant pleural effusion: (5) Anemia: (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: (7) Type 2 diabetes, controlled, with neuropathy: Plan Nonweightbearing right lower extremity Knee immobilizer Patient may mobilize with with therapy but should maintain strict nonweightbearing to the right lower extremity and maintain knee immobilizer Ice and elevate as needed for pain and swelling Pain control DVT prophylaxis per primary with recommend Lovenox at discharge Given patient's oncologic history would like to rule out pathologic fracture and would recommend an MRI for evaluation as patient has lesion noted in the proximal tibia Orthopedics will follow along the follow-up after MRI At this point in time we will nonoperative treatment Orthopedics will continue to follow along MRI tomorrow we will follow-up after Attestations Medical Necessity Statement*: Patient requires hospitalization for fall and fracture, continue to conservatively manage, treat for cellulitis, treat for fluid overload, systolic CHF exacerbation Coding Level of Care Code Acute Code for Chg Fwd Diagnoses Fracture of proximal end of right tibia S82.101A Multifocal lung consolidation J18.1 Bilateral pleural effusion J90 Malignant pleural effusion J91.0 Anemia D64.9 Hodgkin lymphoma of intrathoracic lymph nodes C81.92 Type 2 diabetes, controlled, with neuropathy E11.40 Time Spent (min) 20
[2023-03-12] VITALS (13 sets, daily range): BP systolic 103–146; BP diastolic 54–70; PULSE 50–63; RESP 16–20; TEMP 36.3–36.6; O2SAT 93–100
[2023-03-12] MEDS: oxyCODONE 5 mg IR Tab/Cap 10 MG PO ×4 (00:23→23:14)
[2023-03-12 03:17] LABS: Basophils % 0.3 %; Hematocrit 27.5 % (37-53); Lymphocytes # 0.7 10^3/uL (0.8-4.8); Lymphocytes % 23.5 %; Mean Corpuscular HGB Conc 28.4 g/dL (30-55); Mean Corpuscular Hemoglobin 25.7 pg (27-33); Mean Corpuscular Volume 90.8 fl (82-101); Mean Platelet Volume 12.2 fL (7.4-10.4); Monocytes # 0.2 10^3/uL (0.2-0.9); Monocytes % 7.2 %; Neutrophils # 2.11 10^3/uL (1.8-7.7); Neutrophils % 68.7 %; Nucleated Red Blood Cells % 0 %; Platelet Count 117 10^3/cmm (157-399); Red Blood Count 3.03 10^6/uL (3.85-5.65); Red Cell Distribution Width 17.4 % (12.1-15.1); White Blood Count 3.07 10^3/uL (3.29-11.43)
[2023-03-12] MEDS: acetaminophen 325 mg Tablet 650 MG PO ×3 (03:23→23:30)
[2023-03-12] MEDS: enoxaparin 40 mg/0.4 mL Syringe SUBCUT (03:23)
[2023-03-12 05:12] LABS: Slide Review Slide Review Perform
[2023-03-12 05:36] LABS: Alanine Aminotransferase 8 U/L (0-41); Albumin Level 2.6 g/dL (3.5-5.2); Alkaline Phosphatase 251 U/L (40-130); Anion Gap 9.7 (5-19); Aspartate Amino Transferase 11 U/L (0-40); Blood Urea Nitrogen 19 mg/dL (8-23); Carbon Dioxide 30 mmol/L (22-29); Chloride 104 mmol/L (98-107); Glomerular Filtration Rate 95.6 mL/min (90-130); Glucose 117 mg/dL (65-115); Magnesium 2.1 mg/dL (1.7-2.3); Osmolality Calculated 291 mOsm/kg (285-295); Phosphorus 3.7 mg/dL (2.5-4.5); Potassium 4.7 mmol/L (3.5-5.1); Sodium 139 mmol/L (136-145); Total Bilirubin 0.3 mg/dL (0.15-1.2); Total Protein 6.6 g/dL (6.6-8.7)
[2023-03-12] MEDS: pantoprazole DR 40 mg Tablet PO (06:26)
[2023-03-12] MEDS: tamsulosin 0.4 mg Capsule PO (06:26)
--- NOTE | 2023-03-12 07:00 | MR_ITS ---
WS: [id number] MRI OF THE LOWER LEG WITHOUT AND WITH GADOLINIUM ENHANCEMENT. INDICATION: RIGHT knee pain. Fracture. TECHNIQUE: Axial PD, coronal STIR, axial STIR, coronal T1, sagittal STIR, sagittal T1, and post gadol inium imaging was obtained. Images limited due to motion artifact and positioning. COMPARISON: CT 03/09/23 FINDINGS: Comminuted fracture involving the proximal tibial diametaphysis extending to the tibial [place]. This extends to the tibial plateau at the level of the tibial spines. In addition, extension po steriorly to the posterior tibial cortical surface. Mild depression of the tibial plateau measuring 4 to 5 mm. Vertical and transverse components of the tibial fracture extending into the proximal tibia l shaft. This is best appreciated on the sagittal imaging. In addition there is a comminuted impacted fracture involving the fibula head with associated edema. Visualized fibula shaft appears intact. Unchanged areas of avascular necrosis or bony infarcts involving the medial and lateral femoral condy les and medial tibial plateau stable since 2018 MRI. Soft tissue edema. Small joint effusion. Remaind er of examination is limited due to positioning and motion artifact. IMPRESSION: 1. Complex comminuted fractures involving the tibia diametaphysis extending to the tibial plateau de scribed above. 2. Mild depression tibial plateau measuring 4 to 5 mm. 3. Comminuted impacted fracture involving the fibula head. 4. 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
[2023-03-12 07:14] LABS: Glucose Point of Care 147 mg/dL (70-110)
[2023-03-12] MEDS: lidocaine 5% Patch 1 PATCH TOPICAL (09:54)
[2023-03-12] MEDS: sucralfate 1 gm Tablet PO ×3 (09:54→20:17)
[2023-03-12] MEDS: gabapentin 300 mg Capsule 600 MG PO ×2 (09:54→17:51)
[2023-03-12] MEDS: cefTRIAXone 1,000 MG in sodium chloride 0.9% (plus) 50 ML 100 MG IV (09:55)
[2023-03-12] MEDS: insulin lispro 100 unit/1 mL SUBCUT ×3 (09:55→21:30)
--- NOTE | 2023-03-12 09:55 | ECG_ITS ---
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 Measurements Intervals [place] Rate: 54 P: 0 ND: 0 QRS: -70 QRSD: 129 T: 6 QT: 431 QTc: 409 Interpretive Statements SINUS BRADYCARDIA WITH 2ND DEGREE AV BLOCK, MOBITZ TYPE I (WENCKEBACH) LEFT ANTERIOR FASCICULAR BLOCK [QRS AXIS <= -45, QR IN I, RS IN II] CRITICAL TEST RESULT Compared to ECG 03/10/2023 13:19:03 Left anterior fascicular block now present Sinus rhythm no longer present First degree AV block no longer present Intraventricular conduction delay no longer present Electronically Signed On 03-12-2023 12:03:11 [employer] by Myke Tavares M.D. [id number]
[2023-03-12] MEDS: spironolactone 25 mg Tablet 50 MG PO ×2 (09:56→17:51)
[2023-03-12] MEDS: vancomycin 1,250 MG/250 ML PIGGYBACK 200 MG IV ×2 (09:57→21:30)
[2023-03-12] MEDS: FUROsemide 10 mg/mL SDV 4mL 40 MG IVP ×2 (10:29→17:44)
--- NOTE | 2023-03-12 11:03 | PC.SOCIAL ---
Pg 2 IMM Explained to pt & Pg 2 IMM. No questions voiced. Provided pt a copy. Initialed, dated, & timed a copy & placed in chart.
[2023-03-12] MEDS: gadobenate dimeglumine 20 mL vial IV (14:59)
--- NOTE | 2023-03-12 15:44 | P.PN_ITS ---
Subjective Subjective: Patient was seen this morning, his is at bedside he is alert awake, following all commands, he continues to have breakthrough pain, he denies any lightheadedness, dizziness, had sinus bradycardia throughout the night we will repeat EKG, we discussed continue to diurese him because he has fluid overload, controlling his pain, plan on lower extremity MRI Vitals/I&O/Wt Last Vital Signs Temp 97.4 F L 03/12/23 11:23 Pulse 60 03/12/23 11:23 Resp 20 H 03/12/23 13:15 BP 103/66 03/12/23 11:23 Pulse Ox 94 03/12/23 11:23 O2 Del Method Nasal Cannula 03/12/23 11:23 O2 Flow Rate 2 03/12/23 10:05 03/12/23 03/12/23 03/12/23 06:59 14:59 22:59 Intake Total 250 / 1585 1360 / 1360 Output Total 900 / 2575 Balance -650 / -990 1360 / 1360 Physical Exam Const: COMMON NORMALS: no acute distress and patient oriented x3 Resp: COMMON NORMALS: normal respiratory effort, No retractions, No use of accessory muscles and clear to auscultation bilaterally AUSCULTATION: clear to auscultation bilaterally Cardio: COMMON NORMALS: regular rate, regular rhythm, S1 normal heart sound present and S2 normal heart sound present RATE: regular rate RHYTHM: regular rhythm HEART SOUNDS: S1 normal heart sound present and S2 normal heart sound present GI: COMMON NORMALS: Normal to inspection, nondistended, normoactive bowel sounds present and non-tender Extremity: NARRATIVE EXTREMITY EXAM: CT right lower extremity, in a immobilizer Neuro: COMMON NORMALS: patient oriented x3 Psych: COMMON NORMALS: mental status grossly normal Urinary Catheter Management: Bledsoe: Cath Placed During This Visit: yes Reason for Continuing Indwelling Catheter: Other Urinary Catheter Date of Insertion: 03/10/23 Urinary Catheter Time of Insertion: 09:45 Data 03/12/23 02:27 03/12/23 04:36 Micro: Microbiology 03/10/23 10:00 Blood Culture - Preliminary Blood NEGATIVE TO DATE 03/10/23 09:45 Blood Culture - Preliminary Blood NEGATIVE TO DATE A&P Assessment and plan (1) Fracture of proximal end of right tibia: Suffered after mechanical fall. Orthopedic service has been consulted from the emergency room, awaiting assessment Currently in a knee immobilizer ? MRI has been ordered Continue home dose of oxycodone 10 mg p.o. every 4 hours as needed Continue home dose of gabapentin. (2) Anemia: Chronic, longstanding,'s worsening since July 2022, slowly declining from 10.8 earlier this year to 8.5 today. No active signs of bleeding. Continue to closely monitor. Not on any iron on Venofer supplementation due to high ferr itin levels as outpatient. (3) CHF (congestive heart failure): Recent admission for the same. This is chronic, longstanding Has 1+ pitting edema, 2 dose of Lasix today Qualifiers: Heart failure chronicity: acute on chronic Heart failure type: unspec ified Qualified Code(s): I50.9 - Heart failure, unspecified (4) Cellulitis: Right lower extremity, below fracture site, erythema, swelling, possible cellulitis, with his open wounds that have been receiving dressing changes start vancomycin, Rocephin, CRP, Pro-Richie, blood cultures (5) Bilateral pleural effusion: We will continue diuretic therapy (6) Type 2 diabetes, controlled, with neuropathy: Low-dose sliding scale (7) Cardiomyopathy: (8) Systolic CHF, acute: Has bilateral extremity 1+ pitting edema, with crackles on exam ? Serial EKGs, short ones, telemetry monitoring, BNP over 17,000, Lasix 40 mg IV push once (9) NSTEMI (non-ST elevated myocardial infarction): No chest pain complaints, Fortino's concern troponins, telemetry monitoring (10) Myelodysplastic syndrome: (11) Essential hypertension: (12) Acute on chronic anemia: We will continue to monitor (13) Opiate poisoning: -Resolved - Opiate poisoning, received Dilaudid, with oxycodone, resulting in respiratory disruption, status post 2 doses of Narcan -Currently respiratory rate 12-14, has crackles on exam, can awaken, -We will monitor in ICU -Once mentation improved, continue narcotic oxycodone to avoid withdrawal Plan DVT prophylaxis: Lovenox Sinus Bradycardia -EKG shows second-degree AV block, type II, continue telemetry monitoring Attestations Medical Necessity Statement*: Requires hospitalization for fracture, requiring MRI, fluid overload, systolic CHF exacerbation requiring diuresis, cellulitis requiring antibiotics, sinus bradycardia, requiring telemetry monitoring, also having a second-degree AV block type II requiring monitoring Diagnoses Fracture of proximal end of right tibia S82.101A Anemia D64.9 CHF (congestive heart failure) I50.9 Heart failure chronicity: acute on chronic Heart failure type: unspecified Cellulitis L03.90 Bilateral pleural effusion J90 Type 2 diabetes, controlled, with neuropathy E11.40 Cardiomyopathy I42.9 Systolic CHF, acute I50.21 NSTEMI (non-ST elevated myocardial infarction) I21.4 Myelodysplastic syndrome D46.9 Essential hypertension I10 Acute on chronic anemia D64.9 Opiate poisoning T40.601A
[2023-03-12 17:18] LABS: Glucose Point of Care 115 mg/dL (70-110)
[2023-03-12] MEDS: trazodone 50 mg Tablet 25 MG PO (20:17)
[2023-03-12 20:27] LABS: Glucose Point of Care 154 mg/dL (70-110)
--- NOTE | 2023-03-12 22:05 | PM.PN ---
Subjective Subjective: No acute changes overnight. Following up with patient MRI as this was performed today. Reviewed MRI with patient no acute pathologic findings just findings consistent with acute fracture. Continue with nonoperative treatment stable from orthopedic standpoint Vitals/I&O/Wt Last Vital Signs Temp 97.8 F 03/12/23 20:00 Pulse 55 L 03/12/23 21:53 Resp 17 03/12/23 20:00 BP 128/61 03/12/23 20:00 Pulse Ox 98 03/12/23 20:00 O2 Del Method Nasal Cannula 03/12/23 16:46 O2 Flow Rate 2 03/12/23 20:23 03/12/23 03/12/23 03/12/23 06:59 14:59 22:59 Intake Total 250 / 1585 1360 / 1360 480 / 1840 Output Total 900 / 2575 1800 / 1800 Balance -650 / -990 1360 / 1360 -1320 / 40 Physical Exam Narrative: Orthopedic examination: Patient alert and communicative, and in knee immobilize to right knee, gross motor and sensory intact of the right lower extremity dressings on in place to the right lower extremity wounds. Patient able to toes plantarflex and dorsiflex ankle sensations intact light touch distally. Urinary Catheter Management: Bledsoe: Cath Placed During This Visit: yes Reason for Continuing Indwelling Catheter: Other Urinary Catheter Date of Insertion: 03/10/23 Urinary Catheter Time of Insertion: 09:45 Data 03/19/23 04:33 03/19/23 04:33 MRI: My impression: Findings consistent with right tibial plateau fracture as well as fibular head fracture. Small areas of concern demonstrate possible AVN or bone infarcts of the medial and lateral femoral condyles as well as the medial plateau no malignant pathology is appreciated. Radiologist's impression: [address] [place] [address] Magnetic Resonance Report Signed Patient: Inder Caldwell Unit #: [id number] : 1950 Age/Sex: 72 / M ADM Date: 03/10/23 Loc: [facility] Room/Bed: [facility] Attending Dr: Jas Figueroa MD Ordering Provider/Ordering MD: Arthur Churchill Date of Service: 03/12/23 Procedure(s): MR lower leg RT wo/w con [id number] Accession Number(s): [id number] Report Number: [id number] WS: [id number] MRI OF THE LOWER LEG WITHOUT AND WITH GADOLINIUM ENHANCEMENT. INDICATION: RIGHT knee pain. Fracture. TECHNIQUE: Axial PD, coronal STIR, axial STIR, coronal T1, sagittal STIR, sagittal T1, and post gadolinium imaging was obtained. Images limited due to motion artifact and positioning. COMPARISON: CT 03/09/23 FINDINGS: Comminuted fracture involving the proximal tibial diametaphysis extending to the tibial plateau. This extends to the tibial plateau at the level of the tibial spines. In addition, extension posteriorly to the posterior tibial cortical surface. Mild depression of the tibial plateau measuring 4 to 5 mm. Vertical and transverse components of the tibial fracture extending into the proximal tibial shaft. This is best appreciated on the sagittal imaging. In addition there is a comminuted impacted fracture involving the fibula head with associated edema. Visualized fibula shaft appears intact. Unchanged areas of avascular necrosis or bony infarcts involving the medial and lateral femoral condyles and medial tibial plateau stable since 2018 MRI. Soft tissue edema. Small joint effusion. Remainder of examination is limited due to positioning and motion artifact. IMPRESSION: 1.? Complex comminuted fractures involving the tibia diametaphysis extending to the tibial plateau described above. 2.? Mild depression tibial plateau measuring 4 to 5 mm. 3.? Comminuted impacted fracture involving the fibula head. 4.? 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 Continue with nonoperative treatment Orthopedic surgery team will sign off patient at this timeAnd follow peripherally. If there is any questions pertaining to patient's care for free to contact orthopedics. Plan for nonoperative treatment for right lower extremity fracture with treating with knee immobilizer. We will follow-up in the orthopedic office in 2 weeks. Thank you for allowing us to partake in the care of this patient. Patient and family understand agree with current plan. All questions answered. Attestations Medical Necessity Statement*: Patient requires hospitalization for fall and fracture, continue to conservatively manage, treat for cellulitis, treat for fluid overload, systolic CHF exacerbation Coding Level of Care Code Acute Code for Chg Fwd Diagnoses Fracture of proximal end of right tibia S82.101A Multifocal lung consolidation J18.1 Bilateral pleural effusion J90 Malignant pleural effusion J91.0 Anemia D64.9 Hodgkin lymphoma of intrathoracic lymph nodes C81.92 Type 2 diabetes, controlled, with neuropathy E11.40 Time Spent (min) 15
[2023-03-13] VITALS (14 sets, daily range): BP systolic 115–138; BP diastolic 53–68; PULSE 57–80; RESP 16–18; TEMP 36.4–36.7; O2SAT 63–97
[2023-03-13] MEDS: enoxaparin 40 mg/0.4 mL Syringe SUBCUT (02:52)
[2023-03-13] MEDS: ondansetron 2 mg/ML SDV 2 mL 4 MG IVP (02:53)
[2023-03-13] MEDS: oxyCODONE 5 mg IR Tab/Cap 10 MG PO ×5 (03:34→21:24)
[2023-03-13] MEDS: acetaminophen 325 mg Tablet 650 MG PO ×2 (05:52→20:31)
[2023-03-13] MEDS: tamsulosin 0.4 mg Capsule PO (05:52)
[2023-03-13] MEDS: pantoprazole DR 40 mg Tablet PO (05:52)
[2023-03-13 06:44] LABS: Glucose Point of Care 110 mg/dL (70-110)
[2023-03-13 06:47] LABS: Basophils % 0.8 %; Eosinophils # 0.1 10^3/uL (0.0-0.8); Eosinophils % 2.8 %; Hematocrit 28.3 % (37-53); Lymphocytes # 1.1 10^3/uL (0.8-4.8); Lymphocytes % 28.4 %; Mean Corpuscular HGB Conc 27.9 g/dL (30-55); Mean Corpuscular Hemoglobin 25.2 pg (27-33); Mean Corpuscular Volume 90.4 fl (82-101); Mean Platelet Volume 11.4 fL (7.4-10.4); Monocytes # 0.3 10^3/uL (0.2-0.9); Monocytes % 7.9 %; Neutrophils # 2.34 10^3/uL (1.8-7.7); Neutrophils % 59.8 %; Nucleated Red Blood Cells % 0 %; Platelet Count 133 10^3/cmm (157-399); Red Blood Count 3.13 10^6/uL (3.85-5.65); Red Cell Distribution Width 17.4 % (12.1-15.1); White Blood Count 3.91 10^3/uL (3.29-11.43)
[2023-03-13 07:02] LABS: Alanine Aminotransferase 8 U/L (0-41); Albumin Level 2.7 g/dL (3.5-5.2); Alkaline Phosphatase 232 U/L (40-130); Anion Gap 9.7 (5-19); Aspartate Amino Transferase 11 U/L (0-40); Blood Urea Nitrogen 20 mg/dL (8-23); Calcium 8.5 mg/dL (8.5-10.5); Carbon Dioxide 33 mmol/L (22-29); Chloride 98 mmol/L (98-107); Creatinine Clr Calc Pharmacy 85.4925; Globulin 4.1 g/dL (1.3-4.6); Glomerular Filtration Rate 83.4 mL/min (90-130); Glucose 89 mg/dL (65-115); Osmolality Calculated 284 mOsm/kg (285-295); Phosphorus 3.4 mg/dL (2.5-4.5); Potassium 4.7 mmol/L (3.5-5.1); Sodium 136 mmol/L (136-145); Total Bilirubin 0.4 mg/dL (0.15-1.2); Total Protein 6.8 g/dL (6.6-8.7)
[2023-03-13 07:09] LABS: NT Pro B Type Natriuretic Pept 16628 pg/mL (0-125)
[2023-03-13] MEDS: cefTRIAXone 1,000 MG in sodium chloride 0.9% (plus) 50 ML 100 MG IV (08:03)
[2023-03-13] MEDS: lidocaine 5% Patch 1 PATCH TOPICAL (08:04)
[2023-03-13] MEDS: spironolactone 25 mg Tablet 50 MG PO ×2 (08:05→17:06)
[2023-03-13] MEDS: sucralfate 1 gm Tablet PO ×3 (08:05→21:15)
[2023-03-13] MEDS: gabapentin 300 mg Capsule 600 MG PO ×2 (08:05→17:06)
--- NOTE | 2023-03-13 09:29 | PM.CONSULT ---
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 He was admitted on 03/10/23 for a fracture of the proximal end of the right tibia. Mr. Caldwell reports the fracture was caused by a fall at home. Mr. Caldwell reports he is non weight bearing to the right lower extremity. Immobilizer in place to the right lower extremity. Medical history includes CHF, anemia, Diabetes and bilateral pleural effusion. He is being seen today for wound care consult on the Medical/Surgical floor. Mr. Caldwell reports he was previously seen for these wounds at the wound care oupatient service. He reports he also had a wound to the right pretibial region. Assessment of the wounds today revealed wound to the left great toe plantar surface measuring 1.6x1.2x0.2cm, wound to the left pretibial region measuring 5.2x4.6x0.1cm. I no longer appreciate an open wound to the right pretibial region. Both wounds are limited to breakdown of skin and are clean with no purulent drainage or odor. The wound beds have good granulation and are pink in color. There is minimal serous drainage. I do not appreciate any maceration or erythema to the periwounds. No curette debridement performed. I recommend cleansing the wounds daily with saline. Daily dressing changes with hydrofera blue is recommended. May secure the left great toe with tape. Optifoam is recommended for the left pretibial wound secondary dressing. He may shower with no wound dressing using soap and water. I have encouraged Mr. Caldwell to elevate his leg as much as possible. I do not recommend any wound cultures or imaging at this time. I appreciate the opportunity to consult with Mr. Caldwell. Review of Systems General: Reports: 10 or more systems reviewed and unremarkable except in HPI and below Medications/Allergies Home Medications Medication Instructions Recorded Confirmed Last Taken Type acetaminophen 650 mg 1,300 mg PO Q12H PRN Pain 08/13/19 03/10/23 Unknown History tablet,extended release (Tylenol Arthritis Pain) insulin lispro 100 unit/mL See Rx Instructions .Route .COMPLEX 07/02/20 03/10/23 03/08/22 History subcutaneous solution (Humalog U-100 Insulin) dimenhydrinate 50 mg tablet 50 mg PO Q8H PRN Dizziness 03/09/22 03/10/23 Unknown History (Dramamine) [id number] 300 mcg-K 60 1 tab PO QAM 03/09/22 03/10/23 02/10/23 History mcg-lycop 600 mcg-lutein 300 mcg tablet (Centrum Silver Men) albuterol sulfate 90 mcg/actuation 2 puff inhalation Q6H PRN 03/21/22 03/10/23 Unknown Rx aerosol inhaler (ProAir HFA) shortness of breath or wheezing #8.5 grams Diabetic shoes #2 ea 10/24/22 03/10/23 Unknown Rx sucralfate 1 gram tablet (Carafate) 1 g PO Q6H #60 tabs 11/14/22 03/10/23 02/10/23 Rx ondansetron 4 mg disintegrating 4 mg PO Q6H PRN nausea and 12/04/22 03/10/23 Unknown Rx tablet vomiting #90 tabs Compression stockings - 8-15mmHg #1 ea 12/26/22 03/10/23 Unknown Rx hydroxyzine HCl 10 mg tablet 10 mg PO QAM 02/10/23 03/10/23 02/10/23 History SEE PHARMACY COMMENT metolazone 5 mg tablet 5 mg PO DAILY 02/10/23 03/10/23 02/09/23 History FINISHED PER oxycodone 10 mg tablet 10 - 20 mg PO .EVERY 4-6 HOURS PRN 02/10/23 03/10/23 Unknown History Pain pantoprazole 40 mg tablet,delayed 40 mg PO QAM 02/10/23 03/10/23 02/10/23 History release tamsulosin 0.4 mg capsule 0.4 mg PO QAM 02/10/23 03/10/23 02/10/23 History bisacodyl 5 mg tablet,delayed 10 mg PO DAILY PRN Constipation 02/16/23 03/10/23 Unknown Rx release (see protocol) #30 tabs furosemide 20 mg tablet 40 mg PO QAM #30 tabs 02/16/23 03/10/2323 Rx lactulose 20 gram/30 mL oral 10 g (15 mL) PO TID #1,200 mL 02/16/23 03/10/23 Unknown Rx solution potassium chloride 10 mEq 10 meq PO DAILY #30 tabs 02/19/23 03/10/23 Unknown Rx tablet,extended release spironolactone 50 mg tablet 50 mg PO BID #60 tabs 02/19/23 03/10/23 Unknown Rx gabapentin 600 mg tablet See Rx Instructions .Route 02/23/23 03/10/23 Unknown Rx .COMPLEX #120 tabs losartan 25 mg tablet 25 mg PO DAILY 03/10/23 03/10/23 Unknown History Allergies Allergy/AdvReac Type Severity Reaction Status Date / Time methadone Allergy Unknown Unknown Verified 02/10/23 12:09 carisoprodol [From Soma] Allergy Unknown Verified 02/10/23 12:09 codeine Allergy Unknown Verified 02/10/23 12:09 morphine Allergy Unknown Verified 02/10/23 12:09 Current Medications Generic Name Dose Route Start Last Admin Trade Name Freq PRN Reason Stop Dose Admin Acetaminophen 650 mg 03/10/23 02:56 03/13/23 05:52 Acetaminophen 325 Mg Tablet PO 650 mg Q6H PRN Administration Mild/Mod Pain Or Temp >/= 101 Enoxaparin Sodium 40 mg 03/10/23 03:00 03/13/23 02:52 Enoxaparin 40 Mg/0.4 Ml Syringe SUBCUT 40 mg Q24H SHIRA Administration Gabapentin 600 mg 03/11/23 09:00 03/13/23 08:05 Gabapentin 300 Mg Capsule PO 600 mg BID SHIRA Administration Ceftriaxone Sodium 1,000 mg/ 50 mls @ 100 mls/hr 03/10/23 09:30 03/13/23 08:39 Sodium Chloride IV Infused Q24H SIHRA Infusion Protocol Vancomycin/PEG/NADA/Lysine/Water 1,250 mg in 250 mls @ 200 mls/hr 03/10/23 10:00 03/12/23 23:03 Vancocin IV Infused Q12H SHIRA Infusion Insulin Human Lispro 0 unit 03/10/23 08:00 03/13/23 07:45 Insulin Lispro 100 Unit/1 Ml SUBCUT Not Given WM&BEDTIME SHIRA Protocol Lanolin 1 applic 03/10/23 10:18 03/10/23 10:25 Lanolin Oint 7 Gm TOPICAL 1 applic PRN PRN Administration DRYNESS Lidocaine 1 patch 03/11/23 21:00 03/13/23 08:04 Lidocaine 5% Patch TOPICAL 1 patch [id number] SHIRA Administration Non-Formulary Medication 10 mg 03/10/23 06:00 03/13/23 05:57 Hydroxyzine Hcl PO Not Given QAM SHIRA Ondansetron HCl 4 mg 03/10/23 02:56 03/13/23 02:53 Ondansetron 2 Mg/Ml Sdv 2 Ml IVP 4 mg Q8H PRN Administration vomiting, or N/V if npo Oxycodone HCl 10 mg 03/11/23 08:54 03/13/23 08:04 Oxycodone 5 Mg Ir Tab/Cap PO 10 mg Q4H PRN Administration SEVERE PAIN Pantoprazole Sodium 40 mg 03/10/23 06:00 03/13/23 05:[address] 40 Mg Tablet PO 40 mg QAM SHIRA Administration Spironolactone 50 mg 03/11/23 09:00 03/13/23 08:05 Spironolactone 25 Mg Tablet PO 50 mg BID SHIRA Administration Sucralfate 1 gm 03/10/23 09:00 03/13/23 08:05 Sucralfate 1 Gm Tablet PO 1 gm TID SHIRA Administration Tamsulosin HCl 0.4 mg 03/10/23 06:00 03/13/23 05:52 Tamsulosin 0.4 Mg Capsule PO 0.4 mg QAM SHIRA Administration PFSH Acute PFSH: Medical History Acute cystitis CHENCHO (acute kidney injury) Altered mental status Cardiomyopathy CHF (congestive heart failure) Degenerative arthritis Degenerative joint disease of spine Essential hypertension GERD (gastroesophageal reflux disease) Gram-positive bacteremia 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 History of pericarditis 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 Hypernatremia Iron overload 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 Myelodysplastic syndrome Initially diagnosed in July 2002 NSTEMI (non-ST elevated myocardial infarction) Obstructive sleep apnea Peripheral neuropathy Pleural effusion Rib fracture Sepsis Septic shock Type 2 diabetes mellitus without complications Surgical History History of cholecystectomy History of lumbar laminectomy History of tonsillectomy History of total right hip arthroplasty (2015) S/P ORIF (open reduction internal fixation) fracture (2014) Status post creation of pericardial window (2008) Social History Smoking and tobacco/nicotine status: never used tobacco/nicotine Vitals/I&O/Wt Last Vital Signs Temp 98.0 F 03/13/23 07:09 Pulse 80 03/13/23 07:09 Resp 16 03/13/23 08:04 BP 138/68 03/13/23 07:09 Pulse Ox 94 03/13/23 07:09 O2 Del Method Nasal Cannula 03/12/23 16:46 O2 Flow Rate 2 03/13/23 08:00 03/12/23 03/13/23 03/13/23 22:59 06:59 14:59 Intake Total 720 / 2080 250 / 2330 50 / 50 Output Total 1800 / 1800 2200 / 4000 Balance -1080 / 280 -1950 / -1670 50 / 50 Physical Exam Const: COMMON NORMALS: no acute distress Resp: COMMON NORMALS: normal respiratory effort, No retractions, No use of accessory muscles and clear to auscultation bilaterally AUSCULTATION: clear to auscultation bilaterally Cardio: COMMON NORMALS: regular rate, regular rhythm, S1 normal heart sound present and S2 normal heart sound present RATE: regular rate RHYTHM: regular rhythm HEART SOUNDS: S1 normal heart sound present and S2 normal heart sound present GI: COMMON NORMALS: Normal to inspection, nondistended, normoactive bowel sounds present and non-tender Extremity: NARRATIVE EXTREMITY EXAM: 2+ pitting edema Skin: WOUNDS: Yes wounds noted (Left great toe , plantar surface and left pretibial region ) size (Left great toe: 1.6x1.2x.2cm left pretibial region: 5.2x4.6x0.1cm), bed granulating well, drainage (serous), margins well defined, without odor and open Urinary Catheter Management: Bledsoe: Cath Placed During This Visit: yes Reason for Continuing Indwelling Catheter: Other Urinary Catheter Date of Insertion: 03/10/23 Urinary Catheter Time of Insertion: 09:45 Data 03/13/23 05:52 03/13/23 05:52 A&P Assessment and plan (1) Type 2 diabetes mellitus with foot ulcer: Left great toe wound: Daily dressing changes : Cleanse with saline, Cover with hydrofera blue and secure with tape. (2) Non-healing ulcer of multiple sites of lower extremity, limited to breakdown of skin: Left pretibial wound cluster: Daily dressing changes: Cleanse with saline, Cover with hydrofera blue and secure with covaderm. Plan Daily dressing changes to multiple wounds. Consult Attestations Medical Necessity Statement: I was consulted for Wound care, assessment, dressing changes and orders for multiple wounds including the left great toe and left pretibial wound cluster. Time Spent in Patient Care: 16 - 35 minutes (>than 50% of time spent in counselling and/or direct pt care on unit). 30 Coding Level of Care Code 20303 Diagnoses Type 2 diabetes mellitus with foot ulcer E11.621; L97.509 Non-healing ulcer of multiple sites of lower extremity, limited to breakdown of skin L97.901 Time Spent (min) 30 Wound Orders Wound Number 1: left great toe, plantar surface, limited to breakdown of skin Does Wound require Debridement?: No Duration: 14 Days Dressing change frequency: Daily Wound Cleansing: Saline Primary Wound Care Dressing: Hydrofera blue Secondary Wound Care Dressing: Metapore tape Bathing/Showering/Hygiene: May shower without wound dressing Edema Control: Elevate legs to heart level for 30 mins daily and/or when sitting, Put compression stockings on every morning and remove at bedtime (left lower extremity) and Avoid standing for long periods of time Wound Number 2: left pretibial region, limited to breakdown of skin Does Wound require Debridement?: No Duration: 14 Days Dressing change frequency: Daily Wound Cleansing: Saline Primary Wound Care Dressing: Hydrofera blue Secondary Wound Care Dressing: Covaderm Bathing/Showering/Hygiene: May shower without wound dressing Edema Control: Elevate legs to heart level for 30 mins daily and/or when sitting, Put compression stockings on every morning and remove at bedtime (left lower extremity) and Avoid standing for long periods of time
[2023-03-13] MEDS: FUROsemide 10 mg/mL SDV 4mL 40 MG IVP ×2 (10:10→21:15)
[2023-03-13] MEDS: vancomycin 1,250 MG/250 ML PIGGYBACK 200 MG IV (10:43)
[2023-03-13 12:10] LABS: Glucose Point of Care 130 mg/dL (70-110)
[2023-03-13] MEDS: lactulose oral liq 20 gm/30 mL UDC 10 GM PO (12:42)
--- NOTE | 2023-03-13 13:41 | P.PN_ITS ---
Subjective Subjective: Patient was seen this morning, he is sitting up in a chair, family was at bedside, does report generalized weakness, he continues to have lower extreme edema, but he tells me that he peed all last night, his legs look better, Vitals/I&O/Wt Last Vital Signs Temp 98.0 F 03/13/23 07:09 Pulse 80 03/13/23 07:09 Resp 16 03/13/23 12:29 BP 138/68 03/13/23 07:09 Pulse Ox 94 03/13/23 07:09 O2 Del Method Nasal Cannula 03/12/23 16:46 O2 Flow Rate 2 03/13/23 08:00 03/12/23 03/13/23 03/13/23 22:59 06:59 14:59 Intake Total 720 / 2080 250 / 2330 660 / 660 Output Total 1800 / 1800 2200 / 4000 Balance -1080 / 280 -1950 / -1670 660 / 660 Physical Exam Const: COMMON NORMALS: no acute distress Resp: COMMON NORMALS: normal respiratory effort, No retractions, No use of accessory muscles and clear to auscultation bilaterally AUSCULTATION: clear to auscultation bilaterally Cardio: COMMON NORMALS: regular rate, regular rhythm, S1 normal heart sound present and S2 normal heart sound present RATE: regular rate RHYTHM: regular rhythm HEART SOUNDS: S1 normal heart sound present and S2 normal heart sound present GI: COMMON NORMALS: Normal to inspection, nondistended, normoactive bowel sounds present and non-tender Extremity: NARRATIVE EXTREMITY EXAM: 2+ pitting edema Urinary Catheter Management: Bledsoe: Cath Placed During This Visit: yes Reason for Continuing Indwelling Catheter: Other Urinary Catheter Date of Insertion: 03/10/23 Urinary Catheter Time of Insertion: 09:45 Data 03/13/23 05:52 03/13/23 05:52 A&P Assessment and plan (1) Fracture of proximal end of right tibia: Suffered after mechanical fall. Orthopedic service has been consulted from the emergency room, awaiting assessment Currently in a knee immobilizer ? MRI IMPRESSION: 1.? Complex comminuted fractures involving the tibia diametaphysis extending to the tibial plateau described above. 2.? Mild depression tibial plateau measuring 4 to 5 mm. 3.? Comminuted impacted fracture involving the fibula head. 4.? 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 every 4 hours as needed Continue home dose of gabapentin. (2) Anemia: Chronic, longstanding,'s worsening since July 2022, slowly declining from 10.8 earlier this year to 8.5 today. No active signs of bleeding. Continue to closely monitor. Not on any iron on Venofer supplementation due to high ferritin levels as outpatient. (3) CHF (congestive heart failure): Recent admission for the same. This is chronic, longstanding Has 1+ pitting edema, 2 dose of Lasix today Qualifiers: Heart failure chronicity: acute on chronic Heart failure type: unspecified Qualified Code(s): I50.9 - Heart failure, unspecified (4) Cellulitis: Right lower extremity, below fracture site, erythema, swelling, possible cellu litis, with his open wounds that have been receiving dressing change de-escalate off vancomycin Rocephin to p.o. doxycycline and Augmentin (5) Bilateral pleural effusion: We will continue diuretic therapy (6) Type 2 diabetes, controlled, with neuropathy: Low-dose sliding scale (7) Cardiomyopathy: (8) Systolic CHF, acute: Has bilateral extremity 1+ pitting edema, with crackles on exam, BNP over 16,000 ? Needs further diuresis, Lasix 40 IV twice daily today (9) NSTEMI (non-ST elevated myocardial infarction): No chest pain complaints, Fortino's concern troponins, telemetry monitoring (10) Myelodysplastic syndrome: (11) Essential hypertension: (12) Acute on chronic anemia: We will continue to monitor (13) Opiate poisoning: -Resolved - Opiate poisoning, received Dilaudid, with oxycodone, resulting in respiratory disruption, status post 2 doses of Narcan -Currently respiratory rate 12-14, has crackles on exam, can awaken, -We will monitor in ICU -Once mentation improved, continue narcotic oxycodone to avoid withdrawal Plan DVT prophylaxis: Lovenox Sinus Bradycardia -EKG shows second-degree AV block, type II, continue telemetry monitoring, Plan for today continue IV diuresis, requiring 40 IV Lasix twice daily, lower extremity edema Attestations Medical Necessity Statement*: Patient requires hospitalization for systolic CHF exacerbation requiring IV diuresis, knee fracture requiring conservative intervention Diagnoses Fracture of proximal end of right tibia S82.101A Anemia D64.9 CHF (congestive heart failure) I50.9 Heart failure chronicity: acute on chronic Heart failure type: unspecified Cellulitis L03.90 Bilateral pleural effusion J90 Type 2 diabetes, controlled, with neuropathy E11.40 Cardiomyopathy I42.9 Systolic CHF, acute I50.21 NSTEMI (non-ST elevated myocardial infarction) I21.4 Myelodysplastic syndrome D46.9 Essential hypertension I10 Acute on chronic anemia D64.9 Opiate poisoning T40.601A
[2023-03-13 16:53] LABS: Glucose Point of Care 205 mg/dL (70-110)
[2023-03-13] MEDS: doxycycline 100 mg Tablet PO (17:06)
[2023-03-13] MEDS: insulin lispro 100 unit/1 mL SUBCUT ×2 (17:06→21:15)
--- NOTE | 2023-03-13 19:15 | P.PN_ITS ---
Subjective Subjective: Mr. Caldwell reports no events overnight. He reports he did not get much sleep due to pain from his right lower extremity. Wounds to the left great toe and left pretibial region are stable today. Wound beds have good granulation and are pink in color. Scant amount of serous drainage. No odor. No erythema or induration to the periwounds. No curette debridement performed. Daily dressing changes p erformed. Medications: Reviewed: Yes Vitals/I&O/Wt Last Vital Signs Temp 97.6 F 03/13/23 16:00 Pulse 60 03/13/23 16:00 Resp 18 03/13/23 17:06 BP 135/67 03/13/23 16:00 Pulse Ox 97 03/13/23 16:00 O2 Del Method Nasal Cannula 03/12/23 16:46 O2 Flow Rate 2 03/13/23 08:00 03/13/23 03/13/23 03/13/23 06:59 14:59 22:59 Intake Total 250 / 2330 660 / 660 240 / 900 Output Total 2200 / 4000 1999 Balance -1950 / -1670 -1340 / -1340 240 / -1100 Physical Exam Const: COMMON NORMALS: no acute distress Resp: COMMON NORMALS: normal respiratory effort, No retractions, No use of accessory muscles and clear to auscultation bilaterally AUSCULTATION: clear to auscultation bilaterally Cardio: COMMON NORMALS: regular rate, regular rhythm, S1 normal heart sound present and S2 normal heart sound present RATE: regular rate RHYTHM: regular rhythm HEART SOUNDS: S1 normal heart sound present and S2 normal heart sound present GI: COMMON NORMALS: Normal to inspection, nondistended, normoactive bowel sounds present and non-tender Extremity: NARRATIVE EXTREMITY EXAM: 2+ pitting edema Skin: WOUNDS: Yes wounds noted Urinary Catheter Management: Bledsoe: Cath Placed During This Visit: yes Reason for Continuing Indwelling Catheter: Other Urinary Catheter Date of Insertion: 03/10/23 Urinary Catheter Time of Insertion: 09:45 Data 03/13/23 05:52 03/13/23 05:52 A&P Assessment and plan (1) Type 2 diabetes mellitus with foot ulcer: Left great toe wound: Daily dressing changes : Cleanse with saline, Cover with hydrofera blue and secure with tape. (2) Non-healing ulcer of multiple sites of lower extremity, limited to breakdown of skin: Left pretibial wound cluster: Daily dressing changes: Cleanse with saline, Cover with hydrofera blue and secure with covaderm. Plan Daily dressing changes to multiple wounds. Attestations Medical Necessity Statement*: Patient requires hospitalization for systolic CHF exacerbation requiring IV diuresis, knee fracture requiring conservative intervention, and wound care. Time Spent in Patient Care: 16 - 35 minutes (>than 50% of time spent in counselling and/or direct pt care on unit) . Coding Level of Care Code 58274 Diagnoses Type 2 diabetes mellitus with foot ulcer E11.621; L97.509 Non-healing ulcer of multiple sites of lower extremity, limited to breakdown of skin L97.901 Time Spent (min) 20 Wound Orders Wound Number 1: left great toe, plantar surface, limited to breakdown of skin Does Wound require Debridement?: No Duration: 14 Days Dressing change frequency: Daily Wound Cleansing: Saline Primary Wound Care Dressing: Hydrofera blue Secondary Wound Care Dressing: Metapore tape Bathing/Showering/Hygiene: May shower without wound dressing Edema Control: Elevate legs to heart level for 30 mins daily and/or when sitting, Put compression stockings on every morning and remove at bedtime (left lower extremity) and Avoid standing for long periods of time Wound Number 2: left pretibial region, limited to breakdown of skin Does Wound require Debridement?: No Duration: 14 Days Dressing change frequency: Daily Wound Cleansing: Saline Primary Wound Care Dressing: Hydrofera blue Secondary Wound Care Dressing: Covaderm Bathing/Showering/Hygiene: May shower without wound dressing Edema Control: Elevate legs to heart level for 30 mins daily and/or when sitting, Put compression stockings on every morning and remove at bedtime (left lower extremity) and Avoid standing for long periods of time
[2023-03-13 20:21] LABS: Glucose Point of Care 141 mg/dL (70-110)
[2023-03-14] VITALS (17 sets, daily range): BP systolic 124–154; BP diastolic 58–67; PULSE 54–71; RESP 16–18; TEMP 36.5–36.9; O2SAT 93–100
[2023-03-14] MEDS: enoxaparin 40 mg/0.4 mL Syringe SUBCUT (02:53)
[2023-03-14] MEDS: oxyCODONE 5 mg IR Tab/Cap 10 MG PO ×5 (02:57→20:15)
[2023-03-14] MEDS: tamsulosin 0.4 mg Capsule PO (05:21)
[2023-03-14] MEDS: pantoprazole DR 40 mg Tablet PO (05:21)
[2023-03-14 06:28] LABS: Basophils # 0.1 10^3/uL (0.0-0.1); Basophils % 1.5 %; Eosinophils # 0.2 10^3/uL (0.0-0.8); Eosinophils % 6.4 %; Hematocrit 28.6 % (37-53); Lymphocytes # 0.9 10^3/uL (0.8-4.8); Lymphocytes % 28.5 %; Mean Corpuscular HGB Conc 28.3 g/dL (30-55); Mean Corpuscular Hemoglobin 25.8 pg (27-33); Mean Corpuscular Volume 91.1 fl (82-101); Monocytes # 0.3 10^3/uL (0.2-0.9); Monocytes % 9.5 %; Neutrophils # 1.75 10^3/uL (1.8-7.7); Neutrophils % 53.8 %; Nucleated Red Blood Cells % 0 %; Platelet Count 126 10^3/cmm (157-399); Red Blood Count 3.14 10^6/uL (3.85-5.65); Red Cell Distribution Width 17.2 % (12.1-15.1); White Blood Count 3.26 10^3/uL (3.29-11.43)
[2023-03-14 06:35] LABS: Glucose Point of Care 123 mg/dL (70-110)
[2023-03-14 06:49] LABS: Alanine Aminotransferase 8 U/L (0-41); Albumin Level 2.7 g/dL (3.5-5.2); Alkaline Phosphatase 221 U/L (40-130); Anion Gap 9.4 (5-19); Aspartate Amino Transferase 11 U/L (0-40); Blood Urea Nitrogen 22 mg/dL (8-23); Calcium 8.4 mg/dL (8.5-10.5); Carbon Dioxide 34 mmol/L (22-29); Chloride 99 mmol/L (98-107); Glucose 120 mg/dL (65-115); Osmolality Calculated 291 mOsm/kg (285-295); Phosphorus 3.4 mg/dL (2.5-4.5); Potassium 4.4 mmol/L (3.5-5.1); Sodium 138 mmol/L (136-145); Total Bilirubin 0.3 mg/dL (0.15-1.2); Total Protein 6.7 g/dL (6.6-8.7)
[2023-03-14 06:53] LABS: NT Pro B Type Natriuretic Pept 15241 pg/mL (0-125)
[2023-03-14] MEDS: gabapentin 300 mg Capsule 600 MG PO ×2 (07:50→17:07)
[2023-03-14] MEDS: spironolactone 25 mg Tablet 50 MG PO ×2 (07:51→17:07)
[2023-03-14] MEDS: lidocaine 5% Patch 1 PATCH TOPICAL (07:51)
[2023-03-14] MEDS: doxycycline 100 mg Tablet PO ×2 (07:51→17:07)
[2023-03-14] MEDS: sucralfate 1 gm Tablet PO ×2 (08:14→17:07)
[2023-03-14] MEDS: FUROsemide 10 mg/mL SDV 4mL 40 MG IVP ×2 (10:41→20:17)
[2023-03-14] MEDS: potassium chloride ER 20 mEq Tablet PO ×2 (10:41→20:15)
[2023-03-14] MEDS: acetaminophen 325 mg Tablet 650 MG PO ×2 (10:45→21:19)
--- NOTE | 2023-03-14 11:13 | PC.SOCIAL ---
IMM Updated Updated pt on IMM. No questions voiced. Provided pt a copy. Initialed, dated, & timed copy in chart.
[2023-03-14 11:35] LABS: Glucose Point of Care 184 mg/dL (70-110)
[2023-03-14] MEDS: insulin lispro 100 unit/1 mL SUBCUT ×3 (11:45→22:15)
--- NOTE | 2023-03-14 13:46 | P.PN_ITS ---
Subjective Subjective: Mr. Caldwell reports no events overnight. He reports he did not get much sleep due to pain from his right lower extremity. However, he reports that today he has had better pain control with receiving pain medication more frequently. During our visit Mr. Caldwell reported to me he felt a burning sensation under his immobilizer. The immobilizer was loosened and skin assessment revealed new wound to the right distal lateral lower leg that extends to the posterior side of the right lower leg. The wound appears to be caused by a fluid filled vesicle that burst underneath the immobilizer. The measurements of the right leg wound is 14x5x0.1cm. There was some loose epidermis that was trimmed from the periwound with Metzenbaum scissors and forceps. Minimal bleeding with minimal discomfort. I recommend daily dressing changes with Hydrofera blue as the primary product to the superficial wound of the right lower leg. May cover with covaderm. The immobilizer was secured back in place after wound dressing was applied. Wounds to the left great toe and left pretibial region are stable today. Wound beds have good granulation and are pink in color. Scant amount of serous drainage. No odor. No erythema or induration to the periwounds. No curette debridement performed. Daily dressing changes performed. Medications: Reviewed: Yes Vitals/I&O/Wt Last Vital Signs Temp 97.7 F 03/14/23 11:55 Pulse 63 03/14/23 11:55 Resp 18 03/14/23 11:55 BP 132/62 03/14/23 11:55 Pulse Ox 100 03/14/23 11:55 O2 Del Method Nasal Cannula 03/14/23 11:55 O2 Flow Rate 2 03/14/23 08:00 03/13/23 03/14/23 03/14/23 22:59 06:59 14:59 Intake Total 480 / 1140 480 / 480 Output Total 1900 / 3900 Balance 480 / -860 -1900 / -2760 480 / 480 Physical Exam Const: COMMON NORMALS: no acute distress and patient oriented x3 Resp: COMMON NORMALS: normal respiratory effort, No retractions, No use of accessory muscles and clear to auscultation bilaterally AUSCULTATION: clear to auscultation bilaterally Cardio: COMMON NORMALS: regular rate, regular rhythm, S1 normal heart sound present and S2 normal heart sound present RATE: regular rate RHYTHM: regular rhythm HEART SOUNDS: S1 normal heart sound present and S2 normal heart sound present GI: COMMON NORMALS: Normal to inspection, nondistended, normoactive bowel sounds present, non-tender and no masses Extremity: NARRATIVE EXTREMITY EXAM: Patient has 2+ pitting edema bilateral extremity Neuro: COMMON NORMALS: patient oriented x3 Psych: COMMON NORMALS: mental status grossly normal Skin: WOUNDS: Yes wounds noted Urinary Catheter Management: Bledsoe: Cath Placed During This Visit: yes Reason for Continuing Indwelling Catheter: Other Urinary Catheter Date of Insertion: 03/10/23 Urinary Catheter Time of Insertion: 09:45 Data 03/14/23 05:39 03/14/23 05:39 A&P Assessment and plan (1) Type 2 diabetes mellitus with foot ulcer: Left great toe wound: Daily dressing changes : Cleanse with saline, Cover with hydrofera blue and secure with tape. (2) Non-healing ulcer of multiple sites of lower extremity, limited to breakdown of skin: Right distal lateral/posterior leg wound and Left pretibial wound cluster: Daily dressing changes: Cleanse with saline, Cover with hydrofera blue and secure with covaderm. Plan Daily dressing changes to multiple wounds. Attestations Medical Necessity Statement*: Patient requires hospitalization for systolic CHF exacerbation requiring IV diuresis, knee fracture requiring conservative intervention, and wound care. Time Spent in Patient Care: 16 - 35 minutes (>than 50% of time spent in counselling and/or direct pt care on unit) . Coding Level of Care Code 22765 Diagnoses Type 2 diabetes mellitus with foot ulcer E11.621; L97.509 Non-healing ulcer of multiple sites of lower extremity, limited to breakdown of skin L97.901 Time Spent (min) 34 Wound Orders Wound Number 1: left great toe, plantar surface, limited to breakdown of skin Does Wound require Debridement?: No Duration: 14 Days Dressing change frequency: Daily Wound Cleansing: Saline Primary Wound Care Dressing: Hydrofera blue Secondary Wound Care Dressing: Metapore tape Bathing/Showering/Hygiene: May shower without wound dressing Edema Control: Elevate legs to heart level for 30 mins daily and/or when sitting, Put compression stockings on every morning and remove at bedtime (left lower extremity) and Avoid standing for long periods of time Wound Number 2: left pretibial region, limited to breakdown of skin Does Wound require Debridement?: No Duration: 14 Days Dressing change frequency: Daily Wound Cleansing: Saline Primary Wound Care Dressing: Hydrofera blue Secondary Wound Care Dressing: Covaderm Bathing/Showering/Hygiene: May shower without wound dressing Edema Control: Elevate legs to heart level for 30 mins daily and/or when sitting, Put compression stockings on every morning and remove at bedtime (left lower extremity) and Avoid standing for long periods of time Wound Number 3: Right distal lateral/posterior lower leg wound, superficial Does Wound require Debridement?: Yes Tissue and other material debrided:: Non-Viable and Skin: Epidermis Level Debrided: Dermis Level of Consciousness Pre-Procedure:: Awake and Alert Blood Loss: Minimal Reponse to treatment:: Procedure tolerated well Character of Wound/Ulcer Post Debridement:: Improved Level of Consciousness Post Procedure:: Awake and Alert Post procedure diagnosis:: Same as Pre-Procedure Diagnosis Duration: 14 Days Dressing change frequency: Daily Wound Cleansing: Saline Primary Wound Care Dressing: Hydrofera Blue Secondary Wound Care Dressing: Covaderm Bathing/Showering/Hygiene: May shower without wound dressing Off-Loading: Turn and reposition every 2 hours Edema Control: Elevate legs to heart level for 30 mins daily and/or when sitting and Avoid standing for long periods of time
--- NOTE | 2023-03-14 15:32 | P.PN_ITS ---
Subjective Subjective: Patient was seen this morning, has 2+ pitting edema, coutinue to have shortness of breath, does generalized weakness, no fever, no cough, he reports pain in his right leg Vitals/I&O/Wt Last Vital Signs Temp 97.7 F 03/14/23 11:55 Pulse 63 03/14/23 11:55 Resp 18 03/14/23 11:55 BP 132/62 03/14/23 11:55 Pulse Ox 100 03/14/23 11:55 O2 Del Method Nasal Cannula 03/14/23 11:55 O2 Flow Rate 2 03/14/23 08:00 03/14/23 03/14/23 03/14/23 06:59 14:59 22:59 Intake Total 480 / 480 Output Total 1900 / 3900 1200 / 1200 Balance -1900 / -2760 -720 / -720 Physical Exam Const: COMMON NORMALS: no acute distress and patient oriented x3 Resp: COMMON NORMALS: normal respiratory effort, No retractions, No use of accessory muscles and clear to auscultation bilaterally AUSCULTATION: clear to auscultation bilaterally Cardio: COMMON NORMALS: regular rate, regular rhythm, S1 normal heart sound present and S2 normal heart sound present RATE: regular rate RHYTHM: regular rhythm HEART SOUNDS: S1 normal heart sound present and S2 normal heart sound present GI: COMMON NORMALS: Normal to inspection, nondistended, normoactive bowel sounds present, non-tender and no masses Extremity: NARRATIVE EXTREMITY EXAM: Patient has 2+ pitting edema bilateral extremity Neuro: COMMON NORMALS: patient oriented x3 Psych: COMMON NORMALS: mental status grossly normal Urinary Catheter Management: Bledsoe: Cath Placed During This Visit: yes Reason for Continuing Indwelling Catheter: Other Urinary Catheter Date of Insertion: 03/10/23 Urinary Catheter Time of Insertion: 09:45 Data 03/14/23 05:39 03/14/23 05:39 A&P Assessment and plan (1) Fracture of proximal end of right tibia: Suffered after mechanical fall. Orthopedic service has been consulted from the emergency room, awaiting assessment Currently in a knee immobilizer ? MRI IMPRESSION: 1.? Complex comminuted fractures involving the tibia diametaphysis extending to the tibial plateau described above. 2.? Mild depression tibial plateau measuring 4 to 5 mm. 3.? Comminuted impacted fracture involving the fibula head. 4.? 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 every 4 hours as needed Continue home dose of gabapentin. (2) Anemia: Chronic, longstanding,'s worsening since July 2022, slowly declining from 10.8 earlier this year to 8.5 today. No active signs of bleeding. Continue to closely monitor. Not on any iron on Venofer supplementation due to high ferritin levels as outpatient. (3) CHF (congestive heart failure): Currently with systolic CHF exacerbation, 2+ pitting edema, anasarca, BNP over 15,000 -UOP 7400 ? Lasix 40 IV twice daily Qualifiers: Heart failure chronicity: acute on chronic Heart failure type: unspecified Qualified Code(s): I50.9 - Heart failure, unspecified (4) Cellulitis: Right lower extremity, below fracture site, erythema, swelling, possible ce llulitis, with his open wounds that have been receiving dressing change, c/w p.o. doxycycline (5) Bilateral pleural effusion: We will continue diuretic therapy (6) Type 2 diabetes, controlled, with neuropathy: Low-dose sliding scale (7) Cardiomyopathy: (8) Systolic CHF, acute: Has bilateral extremity 1+ pitting edema, with crackles on exam, BNP over 15,000 ? Needs further diuresis, Lasix 40 IV twice daily today (9) NSTEMI (non-ST elevated myocardial infarction): No chest pain complaints, Fortino's concern troponins, telemetry monitoring (10) Myelodysplastic syndrome: (11) Essential hypertension: (12) Acute on chronic anemia: We will continue to monitor (13) Opiate poisoning: -Resolved - Opiate poisoning, received Dilaudid, with oxycodone, resulting in respiratory disruption, status post 2 doses of Narcan -Currently respiratory rate 12-14, has crackles on exam, can awaken, -We will monitor in ICU -Once mentation improved, continue narcotic oxycodone to avoid withdrawal Plan DVT prophylaxis: Lovenox Sinus Bradycardia -EKG shows second-degree AV block, type II, continue telemetry monitoring, Plan for today continue IV diuresis, requiring 40 IV Lasix twice daily, lower extremity edema, pt ot Attestations Medical Necessity Statement*: patietnt requires hospitalization for systolic chf exacerbation Diagnoses Fracture of proximal end of right tibia S82.101A Anemia D64.9 CHF (congestive heart failure) I50.9 Heart failure chronicity: acute on chronic Heart failure type: unspecified Cellulitis L03.90 Bilateral pleural effusion J90 Type 2 diabetes, controlled, with neuropathy E11.40 Cardiomyopathy I42.9 Systolic CHF, acute I50.21 NSTEMI (non-ST elevated myocardial infarction) I21.4 Myelodysplastic syndrome D46.9 Essential hypertension I10 Acute on chronic anemia D64.9 Opiate poisoning T40.601A
[2023-03-14 16:56] LABS: Glucose Point of Care 256 mg/dL (70-110)
[2023-03-14] MEDS: temazepam 15 mg Capsule PO (21:15)
[2023-03-14] MEDS: ondansetron 2 mg/ML SDV 2 mL 4 MG IVP (21:21)
[2023-03-14 21:24] LABS: Glucose Point of Care 170 mg/dL (70-110)
[2023-03-15] VITALS (13 sets, daily range): BP systolic 134–152; BP diastolic 51–70; PULSE 52–70; RESP 15–18; TEMP 36.4–36.7; O2SAT 92–100
[2023-03-15] MEDS: oxyCODONE 5 mg IR Tab/Cap 10 MG PO ×5 (02:24→21:17)
[2023-03-15] MEDS: enoxaparin 40 mg/0.4 mL Syringe SUBCUT (02:25)
[2023-03-15 05:53] LABS: Basophils % 1.1 %; Eosinophils # 0.4 10^3/uL (0.0-0.8); Eosinophils % 9.9 %; Hematocrit 31.1 % (37-53); Lymphocytes # 1.2 10^3/uL (0.8-4.8); Lymphocytes % 32.1 %; Mean Corpuscular Hemoglobin 25.7 pg (27-33); Mean Corpuscular Volume 91.7 fl (82-101); Mean Platelet Volume 10.9 fL (7.4-10.4); Monocytes # 0.4 10^3/uL (0.2-0.9); Monocytes % 9.9 %; Neutrophils % 46.7 %; Nucleated Red Blood Cells % 0 %; Platelet Count 147 10^3/cmm (157-399); Red Blood Count 3.39 10^6/uL (3.85-5.65); Red Cell Distribution Width 17.1 % (12.1-15.1); White Blood Count 3.64 10^3/uL (3.29-11.43)
[2023-03-15 06:18] LABS: Alanine Aminotransferase 8 U/L (0-41); Albumin Level 3.2 g/dL (3.5-5.2); Alkaline Phosphatase 266 U/L (40-130); Anion Gap 9.6 (5-19); Aspartate Amino Transferase 12 U/L (0-40); Blood Urea Nitrogen 21 mg/dL (8-23); Calcium 8.8 mg/dL (8.5-10.5); Carbon Dioxide 36 mmol/L (22-29); Chloride 98 mmol/L (98-107); Globulin 4.1 g/dL (1.3-4.6); Glucose 128 mg/dL (65-115); Osmolality Calculated 293 mOsm/kg (285-295); Phosphorus 3.3 mg/dL (2.5-4.5); Potassium 4.6 mmol/L (3.5-5.1); Sodium 139 mmol/L (136-145); Total Bilirubin 0.4 mg/dL (0.15-1.2); Total Protein 7.3 g/dL (6.6-8.7)
[2023-03-15] MEDS: pantoprazole DR 40 mg Tablet PO (06:26)
[2023-03-15] MEDS: tamsulosin 0.4 mg Capsule PO (06:26)
[2023-03-15 06:29] LABS: NT Pro B Type Natriuretic Pept 16081 pg/mL (0-125)
[2023-03-15 06:38] LABS: Glucose Point of Care 145 mg/dL (70-110)
--- NOTE | 2023-03-15 07:48 | P.PN_ITS ---
Subjective Subjective: Mr. Caldwell reports no events overnight. He reports he did get some sleep last night. His immobilizer is in place to the right lower extremity. Wound dressings are dry and intact. I notified his nurse this morning of his new wound to the right lower extremity to ensure all daily dressing changes are performed. Medications: Reviewed: Yes Vitals/I&O/Wt Last Vital Signs Temp 97.8 F 03/15/23 07:40 Pulse 56 L 03/15/23 07:40 Resp 16 03/15/23 07:40 BP 137/60 03/15/23 07:40 Pulse Ox 100 03/15/23 07:40 O2 Del Method Nasal Cannula 03/15/23 07:40 O2 Flow Rate 2 03/15/23 07:40 03/14/23 03/15/23 03/15/23 22:59 06:59 14:59 Intake Total 480 / 960 Output Total 1800 / 3000 400 / 3400 Balance -1320 / -2040 -400 / -2440 Physical Exam Const: COMMON NORMALS: no acute distress and patient oriented x3 Resp: COMMON NORMALS: normal respiratory effort, No retractions, No use of accessory muscles and clear to auscultation bilaterally AUSCULTATION: clear to auscultation bilaterally Cardio: COMMON NORMALS: regular rate, regular rhythm, S1 normal heart sound present and S2 normal heart sound present RATE: regular rate RHYTHM: regular rhythm HEART SOUNDS: S1 normal heart sound present and S2 normal heart sound present GI: COMMON NORMALS: Normal to inspection, nondistended, normoactive bowel sounds present, non-tender and no masses Extremity: NARRATIVE EXTREMITY EXAM: Patient has 2+ pitting edema bilateral extremity Neuro: COMMON NORMALS: patient oriented x3 Psych: COMMON NORMALS: mental status grossly normal Urinary Catheter Management: Bledsoe: Cath Placed During This Visit: yes Reason for Continuing Indwelling Catheter: Other Urinary Catheter Date of Insertion: 03/10/23 Urinary Catheter Time of Insertion: 09:45 Data 03/15/23 05:43 03/15/23 05:43 A&P Assessment and plan (1) Type 2 diabetes mellitus with foot ulcer: Left great toe wound: Daily dressing changes : Cleanse with saline, Cover with hydrofera blue and secure with tape. (2) Non-healing ulcer of multiple sites of lower extremity, limited to breakdown of skin: Right distal lateral/posterior leg wound and Left pretibial wound cluster: Daily dressing changes: Cleanse with saline, Cover with hydrofera blue and secure with covaderm. Plan DVT prophylaxis: Lovenox Sinus Bradycardia -EKG shows second-degree AV block, type II, continue telemetry monitoring, Plan for today continue IV diuresis, requiring 40 IV Lasix twice daily, lower extremity edema, pt ot Attestations Medical Necessity Statement*: Patient requires hospitalization for systolic CHF exacerbation requiring IV diuresis, knee fracture requiring conservative intervention, and wound care. Time Spent in Patient Care: 16 - 35 minutes (>than 50% of time spent in counselling and/or direct pt care on unit) . Coding Level of Care Code 04766 Diagnoses Type 2 diabetes mellitus with foot ulcer E11.621; L97.509 Non-healing ulcer of multiple sites of lower extremity, limited to breakdown of skin L97.901 Time Spent (min) 19 Wound Orders Wound Number 1: left great toe, plantar surface, limited to breakdown of skin Does Wound require Debridement?: No Duration: 14 Days Dressing change frequency: Daily Wound Cleansing: Saline Primary Wound Care Dressing: Hydrofera blue Secondary Wound Care Dressing: Metapore tape Bathing/Showering/Hygiene: May shower without wound dressing Edema Control: Elevate legs to heart level for 30 mins daily and/or when sitting, Put compression stockings on every morning and remove at bedtime (left lower extremity) and Avoid standing for long periods of time Wound Number 2: left pretibial region, limited to breakdown of skin Does Wound require Debridement?: No Duration: 14 Days Dressing change frequency: Daily Wound Cleansing: Saline Primary Wound Care Dressing: Hydrofera blue Secondary Wound Care Dressing: Covaderm Bathing/Showering/Hygiene: May shower without wound dressing Edema Control: Elevate legs to heart level for 30 mins daily and/or when sitting, Put compression stockings on every morning and remove at bedtime (left lower extremity) and Avoid standing for long periods of time Wound Number 3: Right distal lateral/posterior lower leg wound, superficial Does Wound require Debridement?: Yes Tissue and other material debrided:: Non-Viable and Skin: Epidermis Level Debrided: Dermis Level of Consciousness Pre-Procedure:: Awake and Alert Blood Loss: Minimal Reponse to treatment:: Procedure tolerated well Character of Wound/Ulcer Post Debridement:: Improved Level of Consciousness Post Procedure:: Awake and Alert Post procedure diagnosis:: Same as Pre-Procedure Diagnosis Duration: 14 Days Dressing change frequency: Daily Wound Cleansing: Saline Primary Wound Care Dressing: Hydrofera Blue Secondary Wound Care Dressing: Covaderm Bathing/Showering/Hygiene: May shower without wound dressing Off-Loading: Turn and reposition every 2 hours Edema Control: Elevate legs to heart level for 30 mins daily and/or when sitting and Avoid standing for long periods of time
[2023-03-15] MEDS: potassium chloride ER 20 mEq Tablet 40 MEQ PO (09:18)
[2023-03-15] MEDS: insulin lispro 100 unit/1 mL SUBCUT ×3 (09:18→21:17)
[2023-03-15] MEDS: spironolactone 25 mg Tablet 50 MG PO ×2 (09:18→16:45)
[2023-03-15] MEDS: sucralfate 1 gm Tablet PO ×2 (09:18→16:46)
[2023-03-15] MEDS: doxycycline 100 mg Tablet PO ×2 (09:18→16:46)
[2023-03-15] MEDS: gabapentin 300 mg Capsule 600 MG PO ×2 (09:19→16:46)
[2023-03-15] MEDS: lidocaine 5% Patch 1 PATCH TOPICAL (09:21)
[2023-03-15] MEDS: FUROsemide 10 mg/mL SDV 4mL 40 MG IVP ×2 (10:41→18:51)
[2023-03-15 11:52] LABS: Glucose Point of Care 129 mg/dL (70-110)
--- NOTE | 2023-03-15 15:58 | P.PN_ITS ---
Subjective Subjective: Patient was seen this morning, denies any fevers, no chills, no cough, his edema is improving, he continues to complain of some shortness of breath with exertion, some persistent lower extreme edema Vitals/I&O/Wt Last Vital Signs Temp 98.0 F 03/15/23 11:23 Pulse 62 03/15/23 11:23 Resp 16 03/15/23 11:57 BP 152/61 03/15/23 11:23 Pulse Ox 100 03/15/23 11:23 O2 Del Method Nasal Cannula 03/15/23 11:23 O2 Flow Rate 2 03/15/23 11:23 03/15/23 03/15/23 03/15/23 06:59 14:59 22:59 Intake Total 480 / 480 Output Total 400 / 3400 Balance -400 / -2440 480 / 480 Physical Exam Const: COMMON NORMALS: no acute distress and patient oriented x3 Resp: COMMON NORMALS: normal respiratory effort, No retractions, No use of accessory muscles and clear to auscultation bilaterally AUSCULTATION: clear to auscultation bilaterally Cardio: COMMON NORMALS: regular rate, regular rhythm, S1 normal heart sound present and S2 normal heart sound present RATE: regular rate RHYTHM: regular rhythm HEART SOUNDS: S1 normal heart sound present and S2 normal heart sound present GI: COMMON NORMALS: Normal to inspection, nondistended, normoactive bowel sounds present and non-tender Extremity: NARRATIVE EXTREMITY EXAM: 1+ pitting edema Neuro: COMMON NORMALS: patient oriented x3 Psych: COMMON NORMALS: mental status grossly normal Urinary Catheter Management: Bledsoe: Cath Placed During This Visit: yes Reason for Continuing Indwelling Catheter: Other Urinary Catheter Date of Insertion: 03/10/23 Urinary Catheter Time of Insertion: 09:45 Data 03/15/23 05:43 03/15/23 05:43 Micro: Microbiology 03/10/23 10:00 Blood Culture - Final Blood NO GROWTH AFTER 5 DAYS 03/10/23 09:45 Blood Culture - Final Blood NO GROWTH AFTER 5 DAYS A&P Assessment and plan (1) Fracture of proximal end of right tibia: Suffered after mechanical fall. Orthopedic service has been consulted from the emergency room, awaiting assessment Currently in a knee immobilizer ? MRI IMPRESSION: 1.? Complex comminuted fractures involving the tibia diametaphysis extending to the tibial plateau described above. 2.? Mild depression tibial plateau measuring 4 to 5 mm. 3.? Comminuted impacted fracture involving the fibula head. 4.? 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 every 4 hours as needed Continue home dose of gabapentin. (2) Anemia: Chronic, longstanding,'s worsening since July 2022, slowly declining from 10.8 earlier this year to 8.5 today. No active signs of bleeding. Continue to closely monitor. Not on any iron on Venofer supplementation due to high emmanuelle tin levels as outpatient. (3) CHF (congestive heart failure): Currently with systolic CHF exacerbation, 2+ pitting edema, anasarca, BNP over 16,000 -UOP 9000 ? Lasix 40 IV twice daily Qualifiers: Heart failure chronicity: acute on chronic Heart failure type: unspecified Qualified Code(s): I50.9 - Heart failure, unspecified (4) Cellulitis: Right lower extremity, below fracture site, erythema, swelling, possible cellulitis, with his open wounds that have been receiving dressing change, c/w p.o. doxycycline (5) Bilateral pleural effusion: We will continue diuretic therapy (6) Type 2 diabetes, controlled, with neuropathy: Low-dose sliding scale (7) Cardiomyopathy: (8) Systolic CHF, acute: Has bilateral extremity 1+ pitting edema, with crackles on exam, BNP over 15,000 ? Needs further diuresis, Lasix 40 IV twice daily today (9) NSTEMI (non-ST elevated myocardial infarction): No chest pain complaints, Fortino's concern troponins, telemetry monitoring (10) Myelodysplastic syndrome: (11) Essential hypertension: (12) Acute on chronic anemia: We will continue to monitor (13) Opiate poisoning: -Resolved - Opiate poisoning, received Dilaudid, with oxycodone, resulting in respiratory disruption, status post 2 doses of Narcan -Currently respiratory rate 12-14, has crackles on exam, can awaken, -We will monitor in ICU -Once mentation improved, continue narcotic oxycodone to avoid withdrawal Plan DVT prophylaxis: Lovenox Sinus Bradycardia -EKG shows second-degree AV block, type II, continue telemetry monitoring, Plan for today continue IV diuresis, requiring 40 IV Lasix twice daily, lower extremity edema, pt ot Attestations Medical Necessity Statement*: patient requires hospitalization for chf, requiring diureses, coutinued IV lasix Diagnoses Fracture of proximal end of right tibia S82.101A Anemia D64.9 CHF (congestive heart failure) I50.9 Heart failure chronicity: acute on chronic Heart failure type: unspecified Cellulitis L03.90 Bilateral pleural effusion J90 Type 2 diabetes, controlled, with neuropathy E11.40 Cardiomyopathy I42.9 Systolic CHF, acute I50.21 NSTEMI (non-ST elevated myocardial infarction) I21.4 Myelodysplastic syndrome D46.9 Essential hypertension I10 Acute on chronic anemia D64.9 Opiate poisoning T40.601A
[2023-03-15 17:16] LABS: Glucose Point of Care 252 mg/dL (70-110)
[2023-03-15] MEDS: acetaminophen 325 mg Tablet 650 MG PO (18:56)
[2023-03-15 20:31] LABS: Glucose Point of Care 167 mg/dL (70-110)
[2023-03-15] MEDS: ondansetron 2 mg/ML SDV 2 mL 4 MG IVP (21:17)
[2023-03-15] MEDS: temazepam 15 mg Capsule PO (21:17)
--- NOTE | 2023-03-15 21:41 | PC.NURSE ---
Performed dressing change, removed old covaderm and hydrofera blue and applied new. Moderate purulent drainage noted from the left leg wound, small purulent drainage noted from the right ankle wound. Dressing change well tolerated, all questions answered.
[2023-03-16] VITALS (15 sets, daily range): BP systolic 124–167; BP diastolic 59–72; PULSE 61–73; RESP 14–20; TEMP 36.6–37.1; O2SAT 92–100
[2023-03-16] MEDS: enoxaparin 40 mg/0.4 mL Syringe SUBCUT (02:20)
[2023-03-16] MEDS: oxyCODONE 5 mg IR Tab/Cap 10 MG PO ×4 (02:29→18:12)
[2023-03-16] MEDS: pantoprazole DR 40 mg Tablet PO (06:13)
[2023-03-16] MEDS: tamsulosin 0.4 mg Capsule PO (06:13)
[2023-03-16 06:50] LABS: Glucose Point of Care 177 mg/dL (70-110)
[2023-03-16 06:52] LABS: Basophils # 0.1 10^3/uL (0.0-0.1); Basophils % 1.5 %; Eosinophils # 0.3 10^3/uL (0.0-0.8); Eosinophils % 7.6 %; Hematocrit 30.9 % (37-53); Lymphocytes # 1.2 10^3/uL (0.8-4.8); Lymphocytes % 30.1 %; Mean Corpuscular HGB Conc 27.8 g/dL (30-55); Mean Corpuscular Hemoglobin 25.5 pg (27-33); Mean Corpuscular Volume 91.7 fl (82-101); Mean Platelet Volume 11.3 fL (7.4-10.4); Monocytes # 0.3 10^3/uL (0.2-0.9); Monocytes % 6.8 %; Neutrophils # 2.12 10^3/uL (1.8-7.7); Neutrophils % 53.7 %; Nucleated Red Blood Cells % 0 %; Platelet Count 157 10^3/cmm (157-399); Red Blood Count 3.37 10^6/uL (3.85-5.65); Red Cell Distribution Width 17.2 % (12.1-15.1); White Blood Count 3.95 10^3/uL (3.29-11.43)
[2023-03-16 07:12] LABS: Alanine Aminotransferase 9 U/L (0-41); Albumin Level 3.2 g/dL (3.5-5.2); Alkaline Phosphatase 238 U/L (40-130); Anion Gap 10.6 (5-19); Aspartate Amino Transferase 13 U/L (0-40); Blood Urea Nitrogen 26 mg/dL (8-23); Calcium 8.8 mg/dL (8.5-10.5); Carbon Dioxide 36 mmol/L (22-29); Chloride 101 mmol/L (98-107); Globulin 4.2 g/dL (1.3-4.6); Glucose 141 mg/dL (65-115); Magnesium 2.1 mg/dL (1.7-2.3); Osmolality Calculated 303 mOsm/kg (285-295); Phosphorus 3.3 mg/dL (2.5-4.5); Potassium 4.6 mmol/L (3.5-5.1); Sodium 143 mmol/L (136-145); Total Bilirubin 0.5 mg/dL (0.15-1.2); Total Protein 7.4 g/dL (6.6-8.7)
[2023-03-16] MEDS: insulin lispro 100 unit/1 mL SUBCUT ×2 (09:22→21:44)
[2023-03-16] MEDS: sucralfate 1 gm Tablet PO ×2 (09:23→18:14)
[2023-03-16] MEDS: gabapentin 300 mg Capsule 600 MG PO ×2 (09:23→18:12)
[2023-03-16] MEDS: spironolactone 25 mg Tablet 50 MG PO ×2 (09:23→18:11)
[2023-03-16] MEDS: doxycycline 100 mg Tablet PO ×2 (09:23→18:11)
[2023-03-16] MEDS: lidocaine 5% Patch 1 PATCH TOPICAL (09:24)
[2023-03-16] MEDS: FUROsemide 10 mg/mL SDV 4mL 40 MG IVP ×2 (09:37→18:51)
--- NOTE | 2023-03-16 11:26 | P.PN_ITS ---
Subjective Subjective: Mr. Caldwell is up to the chair and reports he may get to go home today. His immobilizer is in place to the right lower extremity. Wound dressings are dry and intact. I notified his nurse this morning to ensure all daily dressing changes are performed prior to discharge. I recommend continuing hydrofera blue to all wounds as the primary dressing and cover with a covaderm or bordered gauze at discharge. Will follow up with Mr. Caldwell outpatient [facility]. Medications: Reviewed: Yes Vitals/I&O/Wt Last Vital Signs Temp 98.7 F 03/16/23 04:35 Pulse 71 03/16/23 08:00 Resp 14 03/16/23 11:24 BP 124/59 03/16/23 08:00 Pulse Ox 92 03/16/23 08:00 O2 Del Method Nasal Cannula 03/15/23 16:00 O2 Flow Rate 3 03/15/23 21:43 03/15/23 03/16/23 03/16/23 22:59 06:59 14:59 Intake Total 120 / 600 240 / 840 360 / 360 Output Total 2100 / 2100 2000 / 4100 Balance -1980 / -1500 -1760 / -3260 360 / 360 Physical Exam Const: COMMON NORMALS: no acute distress Resp: COMMON NORMALS: normal respiratory effort, No retractions, No use of accessory muscles and clear to auscultation bilaterally AUSCULTATION: clear to auscultation bilaterally Cardio: COMMON NORMALS: regular rate, regular rhythm, S1 normal heart sound present and S2 normal heart sound present RATE: regular rate RHYTHM: regular rhythm HEART SOUNDS: S1 normal heart sound present and S2 normal heart sound present GI: COMMON NORMALS: Normal to inspection, nondistended, normoactive bowel sounds present and non-tender Extremity: NARRATIVE EXTREMITY EXAM: 2+ pitting edema Skin: WOUNDS: Yes wounds noted (Left great toe , plantar surface and left pretibial region ) size (Left great toe: 1.6x1.2x.2cm left pretibial region: 5.2x4.6x0.1cm), bed granulating well, drainage (serous), margins well defined, without odor and open Urinary Catheter Management: Bledsoe: Cath Placed During This Visit: yes Reason for Continuing Indwelling Catheter: Accurate Measurement of Urinary Output in Critically Ill Patients Urinary Catheter Date of Insertion: 03/10/23 Urinary Catheter Time of Insertion: 09:45 Data 03/16/23 06:26 03/16/23 06:26 Micro: Microbiology 03/10/23 10:00 Blood Culture - Final Blood NO GROWTH AFTER 5 DAYS 03/10/23 09:45 Blood Culture - Final Blood NO GROWTH AFTER 5 DAYS A&P Assessment and plan (1) Type 2 diabetes mellitus with foot ulcer: Left great toe wound: Daily dressing changes : Cleanse with saline, Cover with hydrofera blue and secure with tape. (2) Non-healing ulcer of multiple sites of lower extremity, limited to breakdown of skin: Right distal lateral/posterior leg wound and Left pretibial wound cluster: Daily dressing changes: Cleanse with saline, Cover with hydrofera blue and secure with covaderm. Plan Daily dressing changes to multiple wounds. Attestations Medical Necessity Statement*: Patient requires hospitalization for systolic CHF exacerbation requiring IV diuresis, knee fracture requiring conservative intervention, and wound care. Time Spent in Patient Care: 16 - 35 minutes (>than 50% of time spent in counselling and/or direct pt care on unit) . Coding Level of Care Code 91562 Diagnoses Type 2 diabetes mellitus with foot ulcer E11.621; L97.509 Non-healing ulcer of multiple sites of lower extremity, limited to breakdown of skin L97.901 Time Spent (min) 17 Wound Orders Wound Number 1: left great toe, plantar surface, limited to breakdown of skin Does Wound require Debridement?: No Duration: 14 Days Dressing change frequency: Daily Wound Cleansing: Saline Primary Wound Care Dressing: Hydrofera blue Secondary Wound Care Dressing: Metapore tape Bathing/Showering/Hygiene: May shower without wound dressing Edema Control: Elevate legs to heart level for 30 mins daily and/or when sitting, Put compression stockings on every morning and remove at bedtime (left lower extremity) and Avoid standing for long periods of time Wound Number 2: left pretibial region, limited to breakdown of skin Does Wound require Debridement?: No Duration: 14 Days Dressing change frequency: Daily Wound Cleansing: Saline Primary Wound Care Dressing: Hydrofera blue Secondary Wound Care Dressing: Covaderm Bathing/Showering/Hygiene: May shower without wound dressing Edema Control: Elevate legs to heart level for 30 mins daily and/or when sitting, Put compression stockings on every morning and remove at bedtime (left lower extremity) and Avoid standing for long periods of time Wound Number 3: Right distal lateral/posterior lower leg wound, superficial Does Wound require Debridement?: Yes Tissue and other material debrided:: Non-Viable and Skin: Epidermis Level Debrided: Dermis Level of Consciousness Pre-Procedure:: Awake and Alert Blood Loss: Minimal Reponse to treatment:: Procedure tolerated well Character of Wound/Ulcer Post Debridement:: Improved Level of Consciousness Post Procedure:: Awake and Alert Post procedure diagnosis :: Same as Pre-Procedure Diagnosis Duration: 14 Days Dressing change frequency: Daily Wound Cleansing: Saline Primary Wound Care Dressing: Hydrofera Blue Secondary Wound Care Dressing: Covaderm Bathing/Showering/Hygiene: May shower without wound dressing Off-Loading: Turn and reposition every 2 hours Edema Control: Elevate legs to heart level for 30 mins daily and/or when sitting and Avoid standing for long periods of time
[2023-03-16 11:38] LABS: Glucose Point of Care 137 mg/dL (70-110)
--- NOTE | 2023-03-16 13:47 | PC.SOCIAL ---
Pg 2 IMM Explained to pt Pg 2 IMM. No questions voiced. Provided pt a copy. Initialed, dated, & timed a copy & placed in chart.
[2023-03-16] MEDS: acetaminophen 325 mg Tablet 650 MG PO ×2 (14:14→20:26)
--- NOTE | 2023-03-16 15:30 | P.PN_ITS ---
Subjective Subjective: Patient was seen this morning, he continues to complain of lower extremity edema developing blisters that have ruptured, he has diuresed over 12 L, but continues to have edema and shortness of breath, he tells me that he does not want to go to a longterm he wants to go home, Vitals/I&O/Wt Last Vital Signs Temp 98.2 F 03/16/23 12:00 Pulse 67 03/16/23 13:49 Resp 18 03/16/23 13:49 BP 134/65 03/16/23 12:00 Pulse Ox 97 03/16/23 13:49 O2 Del Method Nasal Cannula 03/16/23 13:49 O2 Flow Rate 2 03/16/23 13:49 03/16/23 03/16/23 03/16/23 06:59 14:59 22:59 Intake Total 240 / 840 600 / 600 Output Total 2000 / 4100 900 / 900 Balance -1760 / -3260 -300 / -300 Physical Exam Const: COMMON NORMALS: no acute distress and patient oriented x3 Resp: COMMON NORMALS: normal respiratory effort, No retractions, No use of accessory muscles and clear to auscultation bilaterally AUSCULTATION: clear to auscultation bilaterally Cardio: COMMON NORMALS: regular rate, regular rhythm, S1 normal heart sound present and S2 normal heart sound present RATE: regular rate RHYTHM: regular rhythm HEART SOUNDS: S1 normal heart sound present and S2 normal heart sound present GI: COMMON NORMALS: Normal to inspection, nondistended, normoactive bowel sounds present and non-tender Extremity: COMMON NORMALS: no pedal edema Neuro: COMMON NORMALS: patient oriented x3 Psych: COMMON NORMALS: mental status grossly normal Urinary Catheter Management: Bledsoe: Cath Placed During This Visit: yes Reason for Continuing Indwelling Catheter: Accurate Measurement of Urinary Output in Critically Ill Patients Urinary Catheter Date of Insertion: 03/10/23 Urinary Catheter Time of Insertion: 09:45 Data 03/16/23 06:26 03/16/23 06:26 Micro: Microbiology 03/10/23 10:00 Blood Culture - Final Blood NO GROWTH AFTER 5 DAYS 03/10/23 09:45 Blood Culture - Final Blood NO GROWTH AFTER 5 DAYS A&P Assessment and plan (1) Fracture of proximal end of right tibia: Suffered after mechanical fall. Orthopedic service has been consulted from the emergency room, awaiting assessment Currently in a knee immobilizer ? MRI IMPRESSION: 1.? Complex comminuted fractures involving the tibia diametaphysis extending to the tibial plateau described above. 2.? Mild depression tibial plateau measuring 4 to 5 mm. 3.? Comminuted impacted fracture involving the fibula head. 4.? 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 every 4 hours as needed Continue home dose of gabapentin. (2) Anemia: Chronic, longstanding,'s worsening since July 2022, slowly declining from 10.8 earlier this year to 8.5 today. No active signs of bleeding. Continue to closely monitor. Not on any iron on Venofer supplementation due to high ferritin levels as outpatient. (3) CHF (congestive heart failure): Currently with systolic CHF exacerbation, 2+ pitting edema, anasarca, BNP over 16,000 -UOP 9000 ? Lasix 40 IV twice daily Qualifiers: Heart failure chronicity: acute on chronic Heart failure type: unspecified Qualified Code(s): I50.9 - Heart failure, unspecified (4) Cellulitis: Right lower extremity, below fracture site, erythema, swelling, possible cellulitis, with his open wounds that have been receiving dressing change, c/w p.o. doxycycline (5) Bilateral pleural effusion: We will continue diuretic therapy (6) Type 2 diabetes, controlled, with neuropathy: Low-dose sliding scale (7) Cardiomyopathy: (8) Systolic CHF, acute: Has bilateral extremity 1+ pitting edema, with crackles on exam, BNP over 15,000 ? Needs further diuresis, Lasix 40 IV twice daily today (9) NSTEMI (non-ST elevated myocardial infarction): No chest pain complaints, Fortino's concern troponins, telemetry monitoring (10) Myelodysplastic syndrome: (11) Essential hypertension: (12) Acute on chronic anemia: We will continue to monitor (13) Opiate poisoning: -Resolved - Opiate poisoning, received Dilaudid, with oxycodone, resulting in respiratory disruption, status post 2 doses of Narcan -Currently respiratory rate 12-14, has crackles on exam, can awaken, -We will monitor in ICU -Once mentation improved, continue narcotic oxycodone to avoid withdrawal Plan DVT prophylaxis: Lovenox Sinus Bradycardia -EKG shows second-degree AV block, type II, continue telemetry monitoring, Plan for today continue IV diuresis, requiring 40 IV Lasix twice daily, lower extremity edema, pt ot Attestations Medical Necessity Statement*: Continue to diurese today, continues to have fluid overloaded, add Augmentin for antibiotic coverage Coding Level of Care Code 48186 Moderate MDM includes number and complexity of problems actively addressed during encounter, amount and/or complexity of data reviewed/ordered and described risk of complication, morbidity or mortality of management as doc umented Diagnoses Fracture of proximal end of right tibia S82.101A Anemia D64.9 CHF (congestive heart failure) I50.9 Heart failure chronicity: acute on chronic Heart failure type: unspecified Cellulitis L03.90 Bilateral pleural effusion J90 Type 2 diabetes, controlled, with neuropathy E11.40 Cardiomyopathy I42.9 Systolic CHF, acute I50.21 NSTEMI (non-ST elevated myocardial infarction) I21.4 Myelodysplastic syndrome D46.9 Essential hypertension I10 Acute on chronic anemia D64.9 Opiate poisoning T40.601A
[2023-03-16] MEDS: amoxicillin-clav 875-125 mg Tablet 1 TAB PO (18:11)
[2023-03-16] MEDS: potassium chloride ER 20 mEq Tablet PO (18:13)
[2023-03-16] MEDS: temazepam 15 mg Capsule PO (20:26)
[2023-03-16 21:24] LABS: Glucose Point of Care 270 mg/dL (70-110)
[2023-03-17] VITALS (19 sets, daily range): BP systolic 125–150; BP diastolic 62–70; PULSE 58–66; RESP 16–19; TEMP 36.2–37; O2SAT 94–100
[2023-03-17] MEDS: oxyCODONE 5 mg IR Tab/Cap 10 MG PO ×6 (00:42→23:49)
[2023-03-17] MEDS: enoxaparin 40 mg/0.4 mL Syringe SUBCUT (02:45)
[2023-03-17] MEDS: acetaminophen 325 mg Tablet 650 MG PO ×3 (02:48→17:45)
[2023-03-17 05:57] LABS: Basophils # 0.1 10^3/uL (0.0-0.1); Basophils % 1.4 %; Eosinophils # 0.3 10^3/uL (0.0-0.8); Eosinophils % 7.5 %; Hematocrit 28.2 % (37-53); Lymphocytes # 1.4 10^3/uL (0.8-4.8); Lymphocytes % 37.8 %; Mean Corpuscular Hemoglobin 25.6 pg (27-33); Mean Corpuscular Volume 91.6 fl (82-101); Mean Platelet Volume 11.2 fL (7.4-10.4); Monocytes # 0.4 10^3/uL (0.2-0.9); Monocytes % 9.7 %; Neutrophils # 1.57 10^3/uL (1.8-7.7); Neutrophils % 43.3 %; Nucleated Red Blood Cells % 0 %; Platelet Count 139 10^3/cmm (157-399); Red Blood Count 3.08 10^6/uL (3.85-5.65); Red Cell Distribution Width 17.2 % (12.1-15.1); White Blood Count 3.62 10^3/uL (3.29-11.43)
[2023-03-17 06:15] LABS: Alanine Aminotransferase 6 U/L (0-41); Albumin Level 2.9 g/dL (3.5-5.2); Alkaline Phosphatase 217 U/L (40-130); Anion Gap 11.5 (5-19); Aspartate Amino Transferase 12 U/L (0-40); Blood Urea Nitrogen 27 mg/dL (8-23); Calcium 8.5 mg/dL (8.5-10.5); Carbon Dioxide 36 mmol/L (22-29); Chloride 100 mmol/L (98-107); Glucose 110 mg/dL (65-115); Osmolality Calculated 302 mOsm/kg (285-295); Phosphorus 3.5 mg/dL (2.5-4.5); Potassium 4.5 mmol/L (3.5-5.1); Sodium 143 mmol/L (136-145); Total Bilirubin 0.5 mg/dL (0.15-1.2); Total Protein 6.9 g/dL (6.6-8.7)
[2023-03-17] MEDS: tamsulosin 0.4 mg Capsule PO (06:28)
[2023-03-17] MEDS: pantoprazole DR 40 mg Tablet PO (06:28)
[2023-03-17 06:40] LABS: Glucose Point of Care 133 mg/dL (70-110)
[2023-03-17] MEDS: doxycycline 100 mg Tablet PO ×2 (08:59→17:45)
[2023-03-17] MEDS: gabapentin 300 mg Capsule 600 MG PO ×2 (08:59→17:45)
[2023-03-17] MEDS: amoxicillin-clav 875-125 mg Tablet 1 TAB PO ×2 (08:59→17:46)
[2023-03-17] MEDS: spironolactone 25 mg Tablet 50 MG PO ×2 (08:59→17:45)
[2023-03-17] MEDS: sucralfate 1 gm Tablet PO ×2 (09:00→17:46)
[2023-03-17] MEDS: lidocaine 5% Patch 1 PATCH TOPICAL (09:02)
[2023-03-17] MEDS: FUROsemide 10 mg/mL SDV 4mL 40 MG IVP ×2 (10:30→17:46)
[2023-03-17] MEDS: potassium chloride ER 20 mEq Tablet PO (10:31)
[2023-03-17] MEDS: sodium chloride 0.9% 100 mL Bag 50 ML IV (11:19)
[2023-03-17 12:03] LABS: Glucose Point of Care 180 mg/dL (70-110)
[2023-03-17] MEDS: insulin lispro 100 unit/1 mL SUBCUT ×3 (12:38→21:10)
--- NOTE | 2023-03-17 13:17 | P.PN_ITS ---
Subjective Subjective: Patient was seen this morning, he continues to complain of generalized weakness, we discussed his hemoglobin is 7.9, we will give him an 1 unit of PRBC, given his fracture, history of CAD, he continues to have lower extremity edema but significantly improved from prior, he does complain of shortness of breath, his blisters have improved, but a few of them persist and are wrapped, discussed inpatient monitoring, with further diuresis, he is -14 L so far, still having 1+ pitting edema minimal crackles on exam we will give him Lasix today with a unit of blood, he is agreeable, Vitals/I&O/Wt Last Vital Signs Temp 97.4 F L 03/17/23 12:38 Pulse 62 03/17/23 12:38 Resp 16 03/17/23 12:38 BP 136/63 03/17/23 12:38 Pulse Ox 100 03/17/23 12:38 O2 Del Method Nasal Cannula 03/17/23 08:22 O2 Flow Rate 2 03/17/23 08:22 03/16/23 03/17/23 03/17/23 22:59 06:59 14:59 Intake Total 240 / 840 720 / 720 Output Total 2550 / 3450 Balance 240 / -60 -2550 / -2610 720 / 720 Physical Exam Const: COMMON NORMALS: no acute distress and patient oriented x3 Resp: COMMON NORMALS: normal respiratory effort, No retractions, No use of accessory muscles and clear to auscultation bilaterally AUSCULTATION: clear to auscultation bilaterally Cardio: COMMON NORMALS: regular rate, regular rhythm, S1 normal heart sound present and S2 normal heart sound present RATE: regular rate RHYTHM: regular rhythm HEART SOUNDS: S1 normal heart sound present and S2 normal heart sound present GI: COMMON NORMALS: Normal to inspection, nondistended, normoactive bowel sounds present and non-tender Extremity: NARRATIVE EXTREMITY EXAM: 1+ pitting edema Neuro: COMMON NORMALS: patient oriented x3 Psych: COMMON NORMALS: mental status grossly normal Urinary Catheter Management: Bledsoe: Cath Placed During This Visit: yes Reason for Continuing Indwelling Catheter: Other Urinary Catheter Date of Insertion: 03/10/23 Urinary Catheter Time of Insertion: 09:45 Data 03/17/23 05:31 03/17/23 05:31 A&P Assessment and plan (1) Fracture of proximal end of right tibia: Suffered after mechanical fall. Orthopedic service has been consulted from the emergency room, awaiting assessment Currently in a knee immobilizer ? Patient plans on going home ? MRI IMPRESSION: 1.? Complex comminuted fractures involving the tibia diametaphysis extending to the tibial plateau described above. 2.? Mild depression tibial plateau measuring 4 to 5 mm. 3.? Comminuted impacted fracture involving the fibula head. 4.? 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 every 4 hours as needed Continue home dose of gabapentin. (2) Anemia: Chronic, longstanding,'s worsening since July 2022, slowly declining from 10.8 earlier this year to 8.5 today. No active signs of bleeding. Continue to closely monitor. Not on any iron on Venofer supplementation due to high ferriti n levels as outpatient. (3) CHF (congestive heart failure): Currently with systolic CHF exacerbation, 2+ pitting edema, anasarca, BNP over 16,000 -UOP 15 L ? Lasix 40 IV twice daily Qualifiers: Heart failure chronicity: acute on chronic Heart failure type: unspecified Qualified Code(s): I50.9 - Heart failure, unspecified (4) Cellulitis: Right lower extremity, below fracture site, erythema, swelling, possible cellulitis, with his open wounds that have been receiving dressing change, c/w p.o. doxycycline (5) Bilateral pleural effusion: We will continue diuretic therapy (6) Type 2 diabetes, controlled, with neuropathy: Low-dose sliding scale (7) Cardiomyopathy: (8) Systolic CHF, acute: Has bilateral extremity 1+ pitting edema, with crackles on exam, BNP over 15,000 ? Needs further diuresis, Lasix 40 IV twice daily today (9) NSTEMI (non-ST elevated myocardial infarction): No chest pain complaints, Fortino's concern troponins, telemetry monitoring (10) Myelodysplastic syndrome: (11) Essential hypertension: (12) Acute on chronic anemia: We will continue to monitor (13) Opiate poisoning: -Resolved - Opiate poisoning, received Dilaudid, with oxycodone, resulting in respiratory disruption, status post 2 doses of Narcan -Currently respiratory rate 12-14, has crackles on exam, can awaken, -We will monitor in ICU -Once mentation improved, continue narcotic oxycodone to avoid withdrawal Plan DVT prophylaxis: Lovenox Sinus Bradycardia -EKG shows second-degree AV block, type II, continue telemetry monitoring, Plan for today transfuse 1 unit PRBC given hemoglobin 7.9, complaint of weakness, fatigue history of CAD acute on chronic anemia, in addition he continues to have fluid overload overall improving but needs further diuresis, will give him 2 more doses of IV Lasix today with potassium Attestations Medical Necessity Statement*: Patient requires hospitalization for fluid overload requiring further diuresis, anemia, weakness Diagnoses Fracture of proximal end of right tibia S82.101A Anemia D64.9 CHF (congestive heart failure) I50.9 Heart failure chronicity: acute on chronic Heart failure type: unspecified Cellulitis L03.90 Bilateral pleural effusion J90 Type 2 diabetes, controlled, with neuropathy E11.40 Cardiomyopathy I42.9 Systolic CHF, acute I50.21 NSTEMI (non-ST elevated myocardial infarction) I21.4 Myelodysplastic syndrome D46.9 Essential hypertension I10 Acute on chronic anemia D64.9 Opiate poisoning T40.601A
[2023-03-17 17:10] LABS: Glucose Point of Care 146 mg/dL (70-110)
--- NOTE | 2023-03-17 17:27 | P.PN_ITS ---
Subjective Subjective: Mr. Caldwell is up to the chair complaining of fatigue. He reports he is going to receive a unit of PRBCs today. Skin assessment revealed there are no new additional wounds today. His immobilizer is in place to the right lower extremity. Wound dressings are dry and intact. I spoke with his nurse this morning to ensure all daily dressing changes are performed. I recommend continuing hydrofera blue to all wounds as the primary dressing and cover with a covaderm or bordered gauze. Medications: Reviewed: Yes Vitals/I&O/Wt Last Vital Signs Temp 97.4 F L 03/17/23 16:00 Pulse 59 L 03/17/23 16:00 Resp 17 03/17/23 16:00 BP 150/67 03/17/23 16:00 Pulse Ox 100 03/17/23 16:00 O2 Del Method Nasal Cannula 03/17/23 08:22 O2 Flow Rate 2 03/17/23 08:22 03/17/23 03/17/23 03/17/23 06:59 14:59 22:59 Intake Total 1070 / 1070 Output Total 2550 / 3450 Balance -2550 / -2610 1070 / 1070 Physical Exam Const: COMMON NORMALS: no acute distress and patient oriented x3 Resp: COMMON NORMALS: normal respiratory effort, No retractions, No use of accessory muscles and clear to auscultation bilaterally AUSCULTATION: clear to auscultation bilaterally Cardio: COMMON NORMALS: regular rate, regular rhythm, S1 normal heart sound present and S2 normal heart sound present RATE: regular rate RHYTHM: regular rhythm HEART SOUNDS: S1 normal heart sound present and S2 normal heart sound present GI: COMMON NORMALS: Normal to inspection, nondistended, normoactive bowel sounds present and non-tender Extremity: NARRATIVE EXTREMITY EXAM: 1+ pitting edema Neuro: COMMON NORMALS: patient oriented x3 Psych: COMMON NORMALS: mental status grossly normal Urinary Catheter Management: Bledsoe: Cath Placed During This Visit: yes Reason for Continuing Indwelling Catheter: Other Urinary Catheter Date of Insertion: 03/10/23 Urinary Catheter Time of Insertion: 09:45 Data 03/17/23 05:31 03/17/23 05:31 A&P Assessment and plan (1) Type 2 diabetes mellitus with foot ulcer: Left great toe wound: Daily dressing changes : Cleanse with saline, Cover with hydrofera blue and secure with tape. (2) Non-healing ulcer of multiple sites of lower extremity, limited to breakdown of skin: Right distal lateral/posterior leg wound and Left pretibial wound cluster: Daily dressing changes: Cleanse with saline, Cover with hydrofera blue and secure with covaderm. Plan Daily dressing changes to multiple wounds. Attestations Medical Necessity Statement*: Patient requires hospitalization for fluid overload requiring further diuresis, anemia, weakness Time Spent in Patient Care: 16 - 35 minutes (>than 50% of time spent in counselling and/or direct pt care on unit) . Coding Level of Care Code 26908 Moderate Time for a total of 16 minutes, includes reviewing past or interval history, examining/interviewing patient, placing orders, discussing plan of care with staff, communicating with other healthcare providers and documenting encounter Other Coding Information Focused coding review requested Diagnoses Type 2 diabetes mellitus with foot ulcer E11.621; L97.509 Non-healing ulcer of multiple sites of lower extremity, limited to breakdown of skin L97.901 Time Spent (min) 16 Wound Orders Wound Number 1: left great toe, plantar surface, limited to breakdown of skin Does Wound require Debridement?: No Duration: 14 Days Dressing change frequency: Daily Wound Cleansing: Saline Primary Wound Care Dressing: Hydrofera blue Secondary Wound Care Dressing: Metapore tape Bathing/Showering/Hygiene: May shower without wound dressing Edema Control: Elevate legs to heart level for 30 mins daily and/or when sitting, Put compression stockings on every morning and remove at bedtime (left lower extremity) and Avoid standing for long periods of time Wound Number 2: left pretibial region, limited to breakdown of skin Does Wound require Debridement?: No Duration: 14 Days Dressing change frequency: Daily Wound Cleansing: Saline Primary Wound Care Dressing: Hydrofera blue Secondary Wound Care Dressing: Covaderm Bathing/Showering/Hygiene: May shower without wound dressing Edema Control: Elevate legs to heart level for 30 mins daily and/or when sitting, Put compression stockings on every morning and remove at bedtime (left lower extremity) and Avoid standing for long periods of time Wound Number 3: Right distal lateral/posterior lower leg wound, superficial Does Wound require Debridement?: Yes Tissue and other material debrided:: Non-Viable and Skin: Epidermis Level Debrided: Dermis Level of Consciousness Pre-Procedure:: Awake and Alert Blood Loss: Minimal Reponse to treatment:: Procedure tolerated well Character of Wound/Ulcer Post Debridement:: Improved L evel of Consciousness Post Procedure:: Awake and Alert Post procedure diagnosis:: Same as Pre-Procedure Diagnosis Duration: 14 Days Dressing change frequency: Daily Wound Cleansing: Saline Primary Wound Care Dressing: Hydrofera Blue Secondary Wound Care Dressing: Covaderm Bathing/Showering/Hygiene: May shower without wound dressing Off-Loading: Turn and reposition every 2 hours Edema Control: Elevate legs to heart level for 30 mins daily and/or when sitting and Avoid standing for long periods of time
[2023-03-17 20:58] LABS: Glucose Point of Care 230 mg/dL (70-110)
[2023-03-17] MEDS: temazepam 15 mg Capsule PO (21:10)
[2023-03-18] VITALS (13 sets, daily range): BP systolic 131–148; BP diastolic 52–74; PULSE 55–63; RESP 16–19; TEMP 36.5–37.2; O2SAT 93–99
[2023-03-18] MEDS: enoxaparin 40 mg/0.4 mL Syringe SUBCUT (01:40)
[2023-03-18] MEDS: acetaminophen 325 mg Tablet 650 MG PO ×3 (01:40→16:03)
[2023-03-18] MEDS: temazepam 15 mg Capsule PO ×2 (01:49→20:24)
[2023-03-18 04:41] LABS: Basophils # 0.1 10^3/uL (0.0-0.1); Basophils % 1.1 %; Eosinophils # 0.4 10^3/uL (0.0-0.8); Eosinophils % 7.9 %; Hematocrit 30.6 % (37-53); Lymphocytes # 1.5 10^3/uL (0.8-4.8); Lymphocytes % 31.6 %; Mean Corpuscular HGB Conc 28.4 g/dL (30-55); Mean Corpuscular Hemoglobin 25.7 pg (27-33); Mean Corpuscular Volume 90.3 fl (82-101); Mean Platelet Volume 11.3 fL (7.4-10.4); Monocytes # 0.4 10^3/uL (0.2-0.9); Monocytes % 7.4 %; Neutrophils # 2.44 10^3/uL (1.8-7.7); Neutrophils % 51.8 %; Nucleated Red Blood Cells % 0 %; Platelet Count 154 10^3/cmm (157-399); Red Blood Count 3.39 10^6/uL (3.85-5.65); Red Cell Distribution Width 17.2 % (12.1-15.1); White Blood Count 4.71 10^3/uL (3.29-11.43)
[2023-03-18 04:58] LABS: Alanine Aminotransferase 8 U/L (0-41); Albumin Level 2.8 g/dL (3.5-5.2); Alkaline Phosphatase 217 U/L (40-130); Anion Gap 6.4 (5-19); Aspartate Amino Transferase 15 U/L (0-40); Blood Urea Nitrogen 29 mg/dL (8-23); Calcium 8.6 mg/dL (8.5-10.5); Chloride 94 mmol/L (98-107); Globulin 4.1 g/dL (1.3-4.6); Glucose 100 mg/dL (65-115); Magnesium 2.1 mg/dL (1.7-2.3); Osmolality Calculated 292 mOsm/kg (285-295); Potassium 4.4 mmol/L (3.5-5.1); Sodium 138 mmol/L (136-145); Total Bilirubin 0.6 mg/dL (0.15-1.2); Total Protein 6.9 g/dL (6.6-8.7)
[2023-03-18 05:02] LABS: Carbon Dioxide 42 mmol/L (22-29)
[2023-03-18 05:13] LABS: NT Pro B Type Natriuretic Pept 12273 pg/mL (0-125)
[2023-03-18] MEDS: pantoprazole DR 40 mg Tablet PO (06:11)
[2023-03-18] MEDS: tamsulosin 0.4 mg Capsule PO (06:11)
[2023-03-18] MEDS: oxyCODONE 5 mg IR Tab/Cap 10 MG PO ×4 (06:11→20:24)
[2023-03-18 06:53] LABS: Glucose Point of Care 116 mg/dL (70-110)
[2023-03-18] MEDS: sucralfate 1 gm Tablet PO ×2 (08:14→17:20)
[2023-03-18] MEDS: gabapentin 300 mg Capsule 600 MG PO ×2 (08:14→17:20)
[2023-03-18] MEDS: amoxicillin-clav 875-125 mg Tablet 1 TAB PO ×2 (08:15→17:20)
[2023-03-18] MEDS: doxycycline 100 mg Tablet PO ×2 (08:15→17:20)
[2023-03-18] MEDS: spironolactone 25 mg Tablet 50 MG PO ×2 (08:15→17:20)
[2023-03-18] MEDS: FUROsemide 10 mg/mL SDV 4mL 40 MG IVP (10:21)
[2023-03-18] MEDS: lidocaine 5% Patch 1 PATCH TOPICAL (10:21)
[2023-03-18] MEDS: lactulose oral liq 20 gm/30 mL UDC 10 GM PO (10:21)
[2023-03-18 11:52] LABS: Glucose Point of Care 177 mg/dL (70-110)
[2023-03-18] MEDS: insulin lispro 100 unit/1 mL SUBCUT ×3 (13:37→20:59)
--- NOTE | 2023-03-18 14:49 | P.PN_ITS ---
Subjective Subjective: Patient was seen this morning, he is edema is improving his shortness of breath is improving, continues to have some weakness, no fevers, no chills, is at bedside, he is worried about going home with some persistent lower extreme edema shortness of breath, he is on 3 L, no chest pain, no palpitations, his right lower extremity is slightly more swollen than the left, venous ultrasound was n egative for DVT, likely from his fracture, Vitals/I&O/Wt Last Vital Signs Temp 98.2 F 03/18/23 11:19 Pulse 57 L 03/18/23 11:19 Resp 18 03/18/23 11:19 BP 137/67 03/18/23 11:19 Pulse Ox 99 03/18/23 11:19 O2 Del Method Nasal Cannula 03/18/23 11:19 O2 Flow Rate 2 03/18/23 08:00 03/17/23 03/18/23 03/18/23 22:59 06:59 14:59 Intake Total 600 / 1670 600 / 600 Output Total 2500 / 2500 400 / 2900 350 / 350 Balance -1900 / -830 -400 / -1230 250 / 250 Physical Exam Const: COMMON NORMALS: no acute distress and patient oriented x3 Resp: COMMON NORMALS: normal respiratory effort, No retractions, No use of accessory muscles and clear to auscultation bilaterally AUSCULTATION: clear to auscultation bilaterally Cardio: COMMON NORMALS: regular rate, regular rhythm, S1 normal heart sound present and S2 normal heart sound present RATE: regular rate RHYTHM: regular rhythm HEART SOUNDS: S1 normal heart sound present and S2 normal heart sound present GI: COMMON NORMALS: Normal to inspection, nondistended, normoactive bowel sounds present and non-tender Extremity: NARRATIVE EXTREMITY EXAM: 1+ pitting edema Neuro: COMMON NORMALS: patient oriented x3 Psych: COMMON NORMALS: mental status grossly normal Urinary Catheter Management: Bledsoe: Cath Placed During This Visit: yes Reason for Continuing Indwelling Catheter: Other Urinary Catheter Date of Insertion: 03/10/23 Urinary Catheter Time of Insertion: 09:45 Data 03/18/23 02:52 03/18/23 02:52 A&P Assessment and plan (1) Fracture of proximal end of right tibia: Suffered after mechanical fall. Orthopedic service has been consulted from the emergency room, conservative intervention Currently in a knee immobilizer ? Patient plans on going home ? MRI IMPRESSION: 1.? Complex comminuted fractures involving the tibia diametaphysis extending to the tibial plateau described above. 2.? Mild depression tibial plateau measuring 4 to 5 mm. 3.? Comminuted impacted fracture involving the fibula head. 4.? 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 every 4 hours as needed Continue home dose of gabapentin. (2) Anemia: Status post 2 units PRBC during his hospitalization, hemoglobin stable (3) CHF (congestive heart failure): Currently with systolic CHF exacerbation, 2+ pitting edema, anasarca, BNP over 16,000 -UOP 15 L ? Lasix 40 IV twice daily Qualifiers: Heart failure chronicity: acute on chronic Heart failure type: unspecified Qualified Code(s): I50.9 - Heart failure, unspecified (4) Cellulitis: Right lower extremity, below fracture site, erythema, swelling, possible c ellulitis, with his open wounds that have been receiving dressing change, c/w p.o. doxycycline (5) Bilateral pleural effusion: We will continue diuretic therapy (6) Type 2 diabetes, controlled, with neuropathy: Low-dose sliding scale (7) Cardiomyopathy: (8) Systolic CHF, acute: Has bilateral extremity 1+ pitting edema, with crackles on exam, BNP over 15,000 ? Needs further diuresis, Lasix 40 IV twice daily today (9) NSTEMI (non-ST elevated myocardial infarction): No chest pain complaints, Fortino's concern troponins, telemetry monitoring (10) Myelodysplastic syndrome: (11) Essential hypertension: (12) Acute on chronic anemia: We will continue to monitor (13) Opiate poisoning: -Resolved - Opiate poisoning, received Dilaudid, with oxycodone, resulting in respiratory disruption, status post 2 doses of Narcan -Currently respiratory rate 12-14, has crackles on exam, can awaken, -We will monitor in ICU -Once mentation improved, continue narcotic oxycodone to avoid withdrawal Plan DVT prophylaxis: Lovenox Sinus Bradycardia -EKG shows second-degree AV block, type II, continue telemetry monitoring, Plan for today continue to continue oral pain, continue antibiotics, 1 more dose of IV Lasix today to help with edema, plan on discharging in 24 hours for CHF exacerbation Attestations Medical Necessity Statement*: Patient requires hospitalization for CHF exacerbation requiring diuresis Diagnoses Fracture of proximal end of right tibia S82.101A Anemia D64.9 CHF (congestive heart failure) I50.9 Heart failure chronicity: acute on chronic Heart failure type: unspecified Cellulitis L03.90 Bilateral pleural effusion J90 Type 2 diabetes, controlled, with neuropathy E11.40 Cardiomyopathy I42.9 Systolic CHF, acute I50.21 NSTEMI (non-ST elevated myocardial infarction) I21.4 Myelodysplastic syndrome D46.9 Essential hypertension I10 Acute on chronic anemia D64.9 Opiate poisoning T40.601A
[2023-03-18] MEDS: ondansetron 2 mg/ML SDV 2 mL 4 MG IVP (16:03)
[2023-03-18 16:44] LABS: Glucose Point of Care 142 mg/dL (70-110)
[2023-03-18 20:43] LABS: Glucose Point of Care 170 mg/dL (70-110)
[2023-03-19] VITALS (9 sets, daily range): BP systolic 136–147; BP diastolic 62–67; PULSE 61–65; RESP 16–19; TEMP 36.7–36.8; O2SAT 99–100
[2023-03-19] MEDS: enoxaparin 40 mg/0.4 mL Syringe SUBCUT (02:46)
[2023-03-19] MEDS: oxyCODONE 5 mg IR Tab/Cap 10 MG PO ×3 (04:41→15:38)
[2023-03-19 04:46] LABS: Basophils # 0.1 10^3/uL (0.0-0.1); Basophils % 1.2 %; Eosinophils # 0.3 10^3/uL (0.0-0.8); Eosinophils % 7.6 %; Hematocrit 35.2 % (37-53); Lymphocytes # 1.4 10^3/uL (0.8-4.8); Lymphocytes % 33.3 %; Mean Corpuscular HGB Conc 28.4 g/dL (30-55); Mean Corpuscular Hemoglobin 25.4 pg (27-33); Mean Corpuscular Volume 89.3 fl (82-101); Mean Platelet Volume 11.1 fL (7.4-10.4); Monocytes # 0.4 10^3/uL (0.2-0.9); Monocytes % 8.9 %; Neutrophils # 1.98 10^3/uL (1.8-7.7); Neutrophils % 48.8 %; Nucleated Red Blood Cells % 0 %; Platelet Count 157 10^3/cmm (157-399); Red Blood Count 3.94 10^6/uL (3.85-5.65); Red Cell Distribution Width 16.3 % (12.1-15.1); White Blood Count 4.06 10^3/uL (3.29-11.43)
[2023-03-19 05:17] LABS: Alanine Aminotransferase 50 U/L (0-41); Albumin Level 3.3 g/dL (3.5-5.2); Alkaline Phosphatase 471 U/L (40-130); Anion Gap 9.8 (5-19); Aspartate Amino Transferase 75 U/L (0-40); Blood Urea Nitrogen 30 mg/dL (8-23); Calcium 9.1 mg/dL (8.5-10.5); Carbon Dioxide 41 mmol/L (22-29); Chloride 94 mmol/L (98-107); Globulin 4.7 g/dL (1.3-4.6); Glucose 108 mg/dL (65-115); Magnesium 2.2 mg/dL (1.7-2.3); Osmolality Calculated 297 mOsm/kg (285-295); Potassium 4.8 mmol/L (3.5-5.1); Sodium 140 mmol/L (136-145); Total Bilirubin 0.9 mg/dL (0.15-1.2)
[2023-03-19 05:18] LABS: NT Pro B Type Natriuretic Pept 7955 pg/mL (0-125)
[2023-03-19] MEDS: acetaminophen 325 mg Tablet 650 MG PO ×2 (05:39→12:19)
[2023-03-19] MEDS: tamsulosin 0.4 mg Capsule PO (05:39)
[2023-03-19] MEDS: pantoprazole DR 40 mg Tablet PO (05:39)
[2023-03-19] MEDS: amoxicillin-clav 875-125 mg Tablet 1 TAB PO (09:51)
[2023-03-19] MEDS: gabapentin 300 mg Capsule 600 MG PO (09:52)
[2023-03-19] MEDS: sucralfate 1 gm Tablet PO (09:52)
[2023-03-19] MEDS: doxycycline 100 mg Tablet PO (09:52)
[2023-03-19] MEDS: spironolactone 25 mg Tablet 50 MG PO (09:53)
[2023-03-19] MEDS: FUROsemide 10 mg/mL SDV 4mL 40 MG IVP (09:56)
[2023-03-19 11:49] LABS: Glucose Point of Care 239 mg/dL (70-110)
[2023-03-19] MEDS: lidocaine 5% Patch 1 PATCH TOPICAL (12:19)
[2023-03-19] MEDS: insulin lispro 100 unit/1 mL SUBCUT (12:19)
--- NOTE | 2023-03-19 12:25 | PM.DCS ---
Discharge Providers Date of Admission: 03/10/23 00:05 Date of Discharge: March 19, 2023 Attending Provider at Admission: Anu Preciado MD Attending Provider at Discharge: Jas Figueroa MD Primary Care Provider: Aparna Ann Diagnoses at Discharge Discharge Diagnosis (1) Fracture of proximal end of right tibia: Status: Acute (2) Anemia: Status: Acute (3) CHF (congestive heart failure): Status: Acute Qualifiers: Heart failure chronicity: acute on chronic Heart failure type: unspecified Qualified Code(s): I50.9 - Heart failure, unspecified (4) Cellulitis: Status: Acute (5) Bilateral pleural effusion: Status: Acute (6) Type 2 diabetes, controlled, with neuropathy: Status: Acute (7) Cardiomyopathy: Status: Acute (8) Systolic CHF, acute: Status: Acute (9) NSTEMI (non-ST elevated myocardial infarction): Status: Acute (10) Myelodysplastic syndrome: Status: Acute Permanent problem details: Initially diagnosed in July 2002 (11) Essential hypertension: Status: Acute (12) Acute on chronic anemia: Status: Acute (13) Opiate poisoning: Status: Acute Reason for Visit Reason for Visit: knee pain, fell yesterday Hospital Course Hospital Course Inder Caldwell is a 72 year old male with past medical history of high-grade MDS, 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 Most recently found to have malignant right pleural effusion awaiting further treatment planning with oncology. Other comorbidities include systolic and diastolic heart failure with a EF of 45%, type 2 diabetes mellitus, hypertension. he was recently admitted here until 02/16 for anasarca and CHF exacebation which were treated. He presents today after having suffered a mechanical fall by tripping over oxygen tubing resulting in a tibial plateau fracture. At a baseline he has multipel LE ulcers for which he follows with wound care. Currently reports pain at fracture site. Denies any chest pain dyspnea palpitations syncope (1) Fracture of proximal end of right tibia: Suffered after mechanical fall. -Received pain control as inpatient, PT OT, managed in knee immobilizer, ? MRI IMPRESSION: 1.? Complex comminuted fractures involving the tibia diametaphysis extending to the tibial plateau described above. 2.? Mild depression tibial plateau measuring 4 to 5 mm. 3.? Comminuted impacted fracture involving the fibula head. 4.? 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 Discharged on pain control, knee immobilizer, right lower extremity, nonweightbearing, PT OT as outpatient, follow-up with orthopedic service Patient hospitalization was complicated with systolic CHF, risks requiring inpatient IV diuresis, patient was diuresed over 30 L, -18 L, patient is respiratory status, lower extremity edema improved, discharged on Lasix therapy, instructions on fluid restrictions, follow-up with cardiology as outpatient For concerns for cellulitis managed with antibiotic therapy, discharged on p.o. antibiotic therapy of right lower extremity, Anemia, received 2 units PRBC during hospitalization, discharged with close follow-up with oncology as outpatient Physical Exam Const: COMMON NORMALS: no acute distress and patient oriented x3 Resp: COMMON NORMALS: normal respiratory effort, No retractions, No use of accessory muscles and clear to auscultation bilaterally AUSCULTATION: clear to auscultation bilaterally Cardio: COMMON NORMALS: regular rate, regular rhythm, S1 normal heart sound present and S2 normal heart sound present RATE: regular rate RHYTHM: regular rhythm HEART SOUNDS: S1 normal heart sound present and S2 normal heart sound present GI: COMMON NORMALS: Normal to inspection, nondistended, normoactive bowel sounds present and non-tender Extremity: COMMON NORMALS: no pedal edema NARRATIVE EXTREMITY EXAM: Right lower extremity, in a binder Neuro: COMMON NORMALS: patient oriented x3 Psych: COMMON NORMALS: mental status grossly normal Urinary Catheter Management: Bledsoe: Cath Placed During This Visit: yes Reason for Continuing Indwelling Catheter: Other Urinary Catheter Date of Insertion: 03/10/23 Urinary Catheter Time of Insertion: 09:45 Discharge Data Studies Completed and Pending Completed Studies During Hospitalization Category Date Time Status CT head wo con* [id number] Routine Cat Scan 03/10/23 06:[address] lower leg RT wo con* [id number] Stat Cat Scan 03/09/23 22:45 Completed CTA PE [CT angio chest PE protcl [id number]] Routine Cat Scan 03/10/23 06:40 Completed XR chest 1V portable [id number] Stat Exams 03/09/23 22:45 Completed XR hip RT 2-3V wo/w pel* [id number] Stat Exams 03/09/23 19:24 Completed XR knee RT 3V* [id number] Stat Exams 03/09/23 17:12 Completed XR tibia fibula RT 2V [id number] Stat Exams 03/09/23 20:40 Completed MR lower leg RT wo/w con [id number] Routine MRI 03/12/23 07:00 [place] [id number] Routine Ultrasound 03/10/23 09:21 Completed Pending at discharge Category Date Time Status Complete Blood Count w/Auto AM LABS Lab 03/20/23 04:00 Ordered Comprehensive Metabolic Panel AM LABS Lab 03/20/23 04:00 Ordered Leukocyte Reduced RBC Stat Lab 03/17/23 08:57 Results Magnesium AM LABS Lab 03/20/23 04:00 Ordered NT Pro B Type Natriuretic Pept QAM Lab 03/20/23 06:00 Ordered Type and Screen Stat Lab 03/17/23 08:57 Results Radiology Impressions Knee X-Ray 03/09/23 17:12 IMPRESSION: 1. Acute, mildly impacted fracture of the proximal shaft of the tibia. The fracture extends to the tibial plateau. 2. Acute fracture of the proximal shaft of the fibula. Hip/Pelvis X-Ray 03/09/23 19:24 IMPRESSION: 1. Right hip prosthesis noted. 2. No acute fracture demonstrated. 3. There is no interval change from the prior examination. Tibia/Fibula X-Ray 03/09/23 20:40 IMPRESSION: 1. Fractures of the proximal tibia and proximal fibula. Please see accompanying XR right knee report for details. 2. Distal tibia and distal fibula are intact. Chest X-Ray 03/09/23 22:45 IMPRESSION: 1. Cardiomegaly is present. 2. Bilateral pleural effusions, right larger than left. 3. Compressive atelectasis versus infiltrates at the bilateral lung bases. Lower Extremity CT 03/09/23 22:45 IMPRESSION: 1. Acute fracture of the proximal tibia, as above. 2. Mildly impacted fracture of the proximal fibula also noted. Chest CTA 03/10/23 06:40 IMPRESSION: 1. No central pulmonary thromboembolism. 2. [id number] right pleural effusion, partially loculated. [id number] left pleural effusion. Subtotal collapse of the right lower lobe. Moderate left lower lobe atelectasis. 3. Cardiomegaly, stable. 4. Mediastinal lymphadenopathy, stable. Head CT 03/10/23 06:40 IMPRESSION: No acute intracranial findings. Venous Duplex 03/10/23 09:21 IMPRESSION: No evidence of deep vein thrombosis. Laboratory Results WBC 4.06 10^3/uL (3.29-11.43) 03/19/23 04:33 RBC 3.94 10^6/uL (3.85-5.65) 03/19/23 04:33 Hgb 10.00 g/dL (11.27-16.99) L 03/19/23 04:33 Hct 35.2 % (37-53) L 03/19/23 04:33 MCV 89.3 fl (82-101) 03/19/23 04:33 MCH 25.4 pg (27-33) L 03/19/23 04:33 MCHC 28.4 g/dL (30-55) L 03/19/23 04:33 RDW 16.3 % (12.1-15.1) H 03/19/23 04:33 Plt Count 157 10^3/cmm (157-399) 03/19/23 04:33 MPV 11.1 fL (7.4-10.4) H 03/19/23 04:33 Neut % (Auto) 48.8 % 03/19/23 04:33 Lymph % (Auto) 33.3 % 03/19/23 04:33 Burke % (Auto) 8.9 % 03/19/23 04:33 Eos % (Auto) 7.6 % 03/19/23 04:33 Baso % (Auto) 1.2 % 03/19/23 04:33 Neut # (Auto) 1.98 10^3/uL (1.8-7.7) 03/19/23 04:33 Lymph # (Auto) 1.4 10^3/uL (0.8-4.8) 03/19/23 04:33 Burke # (Auto) 0.4 10^3/uL (0.2-0.9) 03/19/23 04:33 Eos # (Auto) 0.3 10^3/uL (0.0-0.8) 03/19/23 04:33 Baso # (Auto) 0.1 10^3/uL (0.0-0.1) 03/19/23 04:33 Nucleated RBC % (auto) 0 % 03/19/23 04:33 Nucleated RBCs # 0.0 /100WBC 03/19/23 04:33 ESR 34 mm/hr (0-10) H 03/10/23 09:10 Specimen Type Arterial 03/10/23 06:23 Sample Site Brachial, left 03/10/23 06:23 ABG pH 7.36 (7.35-7.45) 03/10/23 06:23 ABG pCO2 52.5 mmHg (35-45) H 03/10/23 06:23 ABG pO2 87.2 mmHg (80.0-100.0) 03/10/23 06:23 ABG HCO3 29.8 mmol/L (22-26) H 03/10/23 06:23 ABG Base Excess 3.7 mmol/L (-2.0-2.0) H 03/10/23 06:23 Catalino Test N/a 03/10/23 06:23 Hematocrit 26.9 % (42-52) L 03/10/23 06:23 O2 Delivery Device Nc 03/10/23 06:23 O2 Liters/Min 3.0 % 03/10/23 06:23 Dental Laboratory Worker ID [email or web address] 03/10/23 06:23 Sodium 140 mmol/L (136-145) 03/19/23 04:33 Potassium 4.8 mmol/L (3.5-5.1) 03/19/23 04:33 Chloride 94 mmol/L (98-107) L 03/19/23 04:33 Carbon Dioxide 41 mmol/L (22-29) H 03/19/23 04:33 Anion Gap 9.8 (5-19) 03/19/23 04:33 BUN 30 mg/dL (8-23) H 03/19/23 04:33 Creatinine 1.0 mg/dL (0.7-1.2) 03/19/23 04:33 GFR Calculation Not Reportable 03/19/23 04:33 Glucose 108 mg/dL (65-115) 03/19/23 04:33 POC Glucose 239 mg/dL (70-110) H 03/19/23 11:11 Calculated Osmolality 297 mOsm/kg (285-295) H 03/19/23 04:33 Calcium 9.1 mg/dL (8.5-10.5) 03/19/23 04:33 Phosphorus 3.5 mg/dL (2.5-4.5) 03/17/23 05:31 Magnesium 2.2 mg/dL (1.7-2.3) 03/19/23 04:33 Iron 17 ug/dL (59-158) L 03/11/23 04:20 Ferritin 650 ng/mL (30-400) H 03/11/23 04:20 Total Bilirubin 0.9 mg/dL (0.15-1.2) 03/19/23 04:33 AST 75 U/L (0-40) H 03/19/23 04:33 ALT 50 U/L (0-41) H 03/19/23 04:33 Alkaline Phosphatase 471 U/L (40-130) H 03/19/23 04:33 Troponin T Baseline 63 ng/L (0-15) H 03/10/23 09:10 Troponin T 120 Minute 60.69 ng/L (0-15) H 03/10/23 11:25 Delta Troponin T -2.31 ABS# (0-10) L 03/10/23 11:25 Troponin T Hi Sens 6Hr 62.08 ng/L (0-15) H 03/10/23 15:25 Troponin T Hi Sens 6Hr Delta -0.92 ng/L (0-12) L 03/10/23 15:25 C-Reactive Protein 130.1 mg/L (0.0-4.9) H 03/10/23 09:10 NT-Pro-B Natriuret Pep 7955 pg/mL (0-125) H 03/19/23 04:33 Total Protein 8.0 g/dL (6.6-8.7) 03/19/23 04:33 Albumin 3.3 g/dL (3.5-5.2) L 03/19/23 04:33 Globulin 4.7 g/dL (1.3-4.6) H 03/19/23 04:33 Procalcitonin 0.23 ng/mL (0-0.5) 03/10/23 09:10 Urine Color Yellow (Yellow) 03/10/23 10:02 Urine Appearance Clear (CLEAR) 03/10/23 10:02 Urine pH 5 (5-7) 03/10/23 10:02 Ur Specific [place] 1.010 (1.005-1.030) 03/10/23 10:02 Urine Protein Neg (Negative) 03/10/23 10:02 Urine Glucose (UA) Norm (Normal) 03/10/23 10:02 Urine Ketones Negative (Negative) 03/10/23 10:02 Urine Blood Neg (Negative) 03/10/23 10:02 Urine Nitrate Negative (Negative) 03/10/23 10:02 Urine Bilirubin Neg (Negative) 03/10/23 10:02 Urine Urobilinogen 1 mg/dL (Negative) H 03/10/23 10:02 Ur Leukocyte Esterase Negative (Negative) 03/10/23 10:02 Vancomycin Trough 19.5 ug/mL (10-15) H 03/11/23 20:58 Blood Type B Positive 03/17/23 08:57 Rho(D) Type Rh positive 03/17/23 08:57 Antibody Screen Negative 03/17/23 08:57 Crossmatch See Detail 03/17/23 08:57 Vitals Last Vital Signs Temp 98.1 F 03/19/23 11:06 Pulse 61 03/19/23 11:06 Resp 16 03/19/23 11:06 BP 137/66 03/19/23 11:06 Pulse Ox 100 03/19/23 11:06 O2 Del Method Nasal Cannula 03/19/23 11:06 O2 Flow Rate 2 03/19/23 07:58 Discharge Plan Discharge Patient Disposition: Home Health Service Condition: Stable Prescriptions: New doxycycline monohydrate 100 mg Tablet 100 mg PO BID 3 Days Qty: 6 0RF amoxicillin-pot clavulanate 875-125 mg Tablet 1 tab PO BID 3 Days Qty: 6 0RF temazepam 15 mg capsule 15 mg PO BEDTIME PRN (Reason: sleep) 7 Days Qty: 7 0RF Continued sucralfate [Carafate] 1 gram tablet 1 g PO Q6H Qty: 60 6RF albuterol sulfate [ProAir HFA] 90 mcg/actuation HFA aerosol inhaler 2 puff inhalation Q6H PRN (Reason: shortness of breath or wheezing) Qty: 8.5 6RF (DME) Compression stockings - 8-15mmHg See Rx Instructions .Route .MEDSUPPLY Qty: 1 0RF Rx Instructions: Wear during the day and remove at night (DME) Diabetic shoes See Rx Instructions .Route .MEDSUPPLY Qty: 2 0RF Rx Instructions: As directed ondansetron 4 mg tablet,disintegrating 4 mg PO Q6H PRN (Reason: nausea and vomiting) Qty: 90 3RF potassium chloride 10 mEq tablet extended release 10 meq PO DAILY Qty: 30 0RF spironolactone 50 mg tablet 50 mg PO BID Qty: 60 0RF gabapentin 600 mg tablet See Rx Instructions .ROUTE .COMPLEX Qty: 120 0RF Dose Instruction: TAKE 1 TABLET BY MOUTH FOUR TIMES DAILY Rx Instructions: TAKE 1 TABLET BY MOUTH FOUR TIMES DAILY acetaminophen [Tylenol Arthritis Pain] 650 mg Tablet Extended Release 1,300 mg PO Q12H PRN (Reason: Pain) insulin lispro [Humalog U-100 Insulin] 100 unit/mL Solution See Rx Instructions .ROUTE .COMPLEX Rx Instructions: sliding scale tid dimenhydrinate [Dramamine] 50 mg Tablet 50 mg PO Q8H PRN (Reason: Dizziness) Centrum Silver Men 300-600-300 mcg Tablet 1 tab PO QAM tamsulosin 0.4 mg capsule 0.4 mg PO QAM pantoprazole 40 mg tablet,delayed release (DR/EC) 40 mg PO QAM hydroxyzine HCl 10 mg tablet 10 mg PO QAM Rx Instructions: Don't take with Benadryl bisacodyl 5 mg Tablet,Delayed Release (Dr/Ec) 10 mg PO DAILY PRN (Reason: Constipation (see protocol)) Qty: 30 0RF lactulose 20 gram/30 mL Solution 10 g PO TID Qty: 1200 2RF furosemide 20 mg tablet 40 mg PO QAM 30 Days Qty: 60 0RF Changed oxycodone 10 mg tablet 10 mg PO Q4H PRN (Reason: Pain) 7 Days Qty: 42 0RF Discontinued metolazone 5 mg tablet 5 mg PO DAILY Rx Instructions: FOR 3 DAYS (RX FILLED 02/08/23) losartan 25 mg tablet 25 mg PO DAILY Discharge Orders: Discharge Order (Routine); Ordered 03/19/23 Ordered By: Jas Figueroa Other Ambulatory Orders: DME: Commode (Order) Location: None Selected Ordered By: Jas Figueroa DME: Wheelchair (Order) Location: None Selected Ordered By: Jas Figueroa Referrals: [facility] Home Care ([facility]) [Outside] Arthur Churchill, [Physician] - 2 weeks (We have notified your physician's clinic of the need for a follow-up appointment to be scheduled. If you have not heard from them within the next 2 business days, please call them directly. You may also reach out to our perennial house manager at [phone] and she can assist you.) Discharge Activity: Limit activity as instructed Patient Instructions: Doxycycline (By mouth), Temazepam (By mouth) (Restoril, Strazepam), Amoxicillin/Clavulanate Potassium (By mouth) (Augmentin, Augmentin..., Heart Attack (DC), Leg Fracture (DC), Opioid Safety Activity Restrictions/Additional Instructions: Orthopedic discharge instructions: Patient should maintain knee immobilizer Patient should be nonweightbearing to right lower extremity Take pain medication as prescribed Elevation and ice as needed PT/OT while maintaining nonweightbearing to right lower extremity Recommend DVT prophylaxis per primary Follow-up with Dr. Churchill in the office in 2 weeks Contact the office for any questions or concerns -Take Lasix 40 mg once daily with potassium replacement therapy limit fluid intake to 2000 cc, ? Take antibiotics as prescribed ? Follow-up with wound care -Do not take temazepam with oxycodone, please use sparingly ?, For oxycodone, please do sparingly, do not drive operate machinery or drink while taking medication Discharge Attestations Time Spent in Discharge Care*: greater than 30 min Quality Metrics Clinical Quality Measures [ No reported AMI, CVA or VTE this stay] Coding Level of Care Code 92302 Total time (in minutes) for Discharge: 45 Diagnoses Fracture of proximal end of right tibia S82.101A Anemia D64.9 CHF (congestive heart failure) I50.9 Heart failure chronicity: acute on chronic Heart failure type: unspecified Cellulitis L03.90 Bilateral pleural effusion J90 Type 2 diabetes, controlled, with neuropathy E11.40 Cardiomyopathy I42.9 Systolic CHF, acute I50.21 NSTEMI (non-ST elevated myocardial infarction) I21.4 Myelodysplastic syndrome D46.9 Essential hypertension I10 Acute on chronic anemia D64.9 Opiate poisoning T40.601A
--- NOTE | 2023-03-19 14:48 | PC.SOCIAL ---
IMM Update pg 2 of IMM updated and reviewed w/ patient. Copy provided and copy dated, initialed and placed in chart.
== END 2023-03-19 16:45 | disposition home health service (06) | DRG 562 ==
LOC: ER 19:43 → MEDSURG 03-10 00:10 → ICU 03-10 07:08 → MEDSURG 03-11 11:28
PROVIDERS: Admitting Provider Student in an Organized Health Care Education/Training Program; Emergency Provider Emergency Medicine; PCP Physician Assistant; Visit Provider Family Medicine
DX: S82.141A Displaced bicondylar fracture of right tibia, initial encounter for closed fracture (principal); I50.23 Acute on chronic systolic (congestive) heart failure; M87.861 Other osteonecrosis, right tibia; L03.115 Cellulitis of right lower limb; I42.9 Cardiomyopathy, unspecified; C81.92 Hodgkin lymphoma, unspecified, intrathoracic lymph nodes; S82.831A Other fracture of upper and lower end of right fibula, initial encounter for closed fracture; W01.0XXA Fall on same level from slipping, tripping and stumbling without subsequent striking against object, initial encounter; D64.9 Anemia, unspecified; I11.0 Hypertensive heart disease with heart failure; E11.40 Type 2 diabetes mellitus with diabetic neuropathy, unspecified; E11.621 Type 2 diabetes mellitus with foot ulcer; L97.521 Non-pressure chronic ulcer of other part of left foot limited to breakdown of skin; E11.622 Type 2 diabetes mellitus with other skin ulcer; T40.601A Poisoning by unspecified narcotics, accidental (unintentional), initial encounter; K21.9 Gastro-esophageal reflux disease without esophagitis; G47.33 Obstructive sleep apnea (adult) (pediatric); R79.89 Other specified abnormal findings of blood chemistry; I44.1 Atrioventricular block, second degree; R00.1 Bradycardia, unspecified; Z79.4 Long term (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 of insulin
CPT/HCPCS: 36415; 36416; 36430; 36591; 36600; 51702; 70450; 71045; 71275; 73502; 73562; 73590; 73700; 73720; 80053; 80202; 81003; 82728; 82803; 82962; 83540; 83735; 83880; 84100; 84145; 84484; 85014; 85018; 85025; 85651; 86140; 86850; 86900; 86920; 87040; 93005; 93970; 96372; 96374; 97110; 97162; 97530; 97760; 99285; A9577; J0696; J1100; J1170; J1650; J1815; J1885; J1940; J2310; J2405; J3370; P9016; Q0162; Q3014; Q9967

== ENCOUNTER → 2023-04-06 10:16 | Outpatient (BNVA) | payer MEDICARE, SELFPAY | PROVIDERS: PCP Physician Assistant; Visit Provider Physician Assistant | DX: S82.191A Other fracture of upper end of right tibia, initial encounter for closed fracture; W01.0XXA Fall on same level from slipping, tripping and stumbling without subsequent striking against object, initial encounter | CPT/HCPCS: 73590; 99213 ==

== ENCOUNTER → 2023-04-24 11:13 | Outpatient (BNVA) | payer MEDICARE, SELFPAY | PROVIDERS: PCP Physician Assistant; Visit Provider Physician Assistant | DX: S82.191A Other fracture of upper end of right tibia, initial encounter for closed fracture; X58.XXXA Exposure to other specified factors, initial encounter | CPT/HCPCS: 73590; 99213 ==

== ENCOUNTER 2023-04-27 22:57 | Observation (INO) | payer MEDICARE, SELFPAY ==
--- NOTE | 2023-04-27 23:01 | ECG_ITS ---
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 Measurements Intervals Mobile Rate: 76 P: 0 NM: 0 QRS: -63 QRSD: 128 T: 65 QT: 420 QTc: 474 Interpretive Statements ATRIAL FIBRILLATION LEFT ANTERIOR FASCICULAR BLOCK [QRS AXIS <= -45, QR IN I, RS IN II] Compared to ECG 03/12/2023 09:55:30 Sinus bradycardia no longer present Electronically Signed On 04-28-2023 9:47:45 [employer] by Myke Tavares M.D. [email or web address]
[2023-04-27 23:06] VITALS: BP 139/93; PULSE 77; RESP 20; TEMP 36.8; BMI 29.0
--- NOTE | 2023-04-27 23:06 | XRR_ITS ---
PROCEDURE INFORMATION: Exam: XR Chest Exam date and time: 04/27/2023 11:07 PM Age: 73 years old Clinical indication: Other: AMS. Confusion. Prior surgery; Surgery date: 6+ months; Surgery type: Gb; Patient HX: EMS arrival for confusion TECHNIQUE: Imaging protocol: Radiologic exam of the chest. Views: 1 view. COMPARISON: CT angio chest PE protcl [id number] 03/10/2023 6:53 AM FINDINGS: Tubes, catheters and devices: Right chest port catheter terminates within mid SVC. Lungs: Low lung volumes. Patchy right lower lung opacities are nonspecific. Prominent bronchovascular markings bilaterally. Pleural spaces: Large volume right pleural effusion. Small volume left pleural effusion. Heart/Mediastinum: Unremarkable. No cardiomegaly. Bones/joints: Unremarkable. XR/XR chest 1V portable [id number] IMPRESSION: No significant change from comparison.
--- NOTE | 2023-04-27 23:06 | XRR_ITS ---
PROCEDURE INFORMATION: Exam: XR Left Foot Exam date and time: 04/27/2023 11:08 PM Age: 73 years old Clinical indication: Lower leg; Bilateral; Patient HX: Ble pain/diabetic ulcers TECHNIQUE: Imaging protocol: Radiologic exam of the left foot. Views: 3 or more views. COMPARISON: CR XR foot LT min 3V* [id number] 01/29/2023 4:48 PM FINDINGS: Bones/joints: Demineralized bones. No focal erosion. No lytic lesion. No fracture. Negative for dislocation. Large osseous spurs the calcaneus. Soft tissues: Mild diffuse swelling. XR/XR foot LT min 3V* [id number] IMPRESSION: Negative for acute bone pathology.
--- NOTE | 2023-04-27 23:06 | XRR_ITS ---
PROCEDURE INFORMATION: Exam: XR Right Tibia and Fibula Exam date and time: 04/27/2023 11:17 PM Age: 73 years old Clinical indication: Lower leg; Bilateral; Patient HX: Ble pain/diabetic ulcers TECHNIQUE: Imaging protocol: Radiologic exam of the right tibia and fibula. Views: 2 views. COMPARISON: CR XR tibia fibula RT 2V [id number] 04/24/2023 11:28 AM FINDINGS: Bones/joints: Angulated fracture deformities of proximal tibia diametaphysis. Angulated fracture deformities of the proximal fibula metaphysis. Anterior apex angulation deformity of the tibia fracture. No significant displacement. Early bone callus at the margins. Demineralized bones. Soft tissues: Mild diffuse soft tissue swelling. XR/XR tibia fibula RT 2V [id number] IMPRESSION: Subacute proximal tibia and fibular fracture redemonstrated. No significant change from the comparison.
--- NOTE | 2023-04-27 23:06 | XRR_ITS ---
PROCEDURE INFORMATION: Exam: XR Right Foot Exam date and time: 04/27/2023 11:11 PM Age: 73 years old Clinical indication: Lower leg; Bilateral; Patient HX: Ble pain/diabetic ulcers TECHNIQUE: Imaging protocol: Radiologic exam of the right foot. Views: 3 or more views. COMPARISON: CR XR tibia fibula RT 2V [id number] 04/24/2023 11:28 AM FINDINGS: Bones/joints: Demineralized bones. No lytic lesion. No erosion. No periosteal reaction. Negative for fracture. Negative for dislocation. Osteophyte spurring in the midfoot and the hindfoot. Soft tissues: Mild diffuse soft tissue swelling. XR/XR foot RT min 3V* [id number] IMPRESSION: Negative for acute osseous pathology.
--- NOTE | 2023-04-27 23:06 | XRR_ITS ---
PROCEDURE INFORMATION: Exam: XR Left Tibia and Fibula Exam date and time: 04/27/2023 11:25 PM Age: 73 years old Clinical indication: Lower leg; Bilateral; Patient HX: Ble pain/diabetic ulcers TECHNIQUE: Imaging protocol: Radiologic exam of the left tibia and fibula. Views: 2 views. COMPARISON: CR XR foot LT min 3V* [id number] 04/27/2023 11:08 PM FINDINGS: Bones/joints: Demineralized bones. Negative for acute fracture. No bone erosion. Negative for lytic lesion. Relatively severe left knee joint medial compartment narrowing. Soft tissues: Unremarkable. XR/XR tibia fibula LT 2V [id number] IMPRESSION: Negative for acute osseous pathology.
--- NOTE | 2023-04-27 23:07 | CTR_ITS ---
PROCEDURE INFORMATION: Exam: CT Head Without Contrast Exam date and time: 04/27/2023 11:47 PM Age: 73 years old Clinical indication: Altered mental status/memory loss; Confusion or disorientation; Patient HX: EMS arrival for confusion. History of leukemia and lymphoma. ; Additional info: AMS TECHNIQUE: Imaging protocol: Computed tomography of the head without contrast. Radiation optimization: All CT scans at this facility use at least one of these dose optimization techniques: automated exposure control; mA and/or kV adjustment per patient size (includes targeted exams where dose is matched to clinical indication); or iterative reconstruction. REPORTING DATA: Count of CT and Cardiac NM exams in prior 12 months: This patient has received 10 known CTs and 0 known cardiac nuclear medicine studies in the 12 months prior to the current study. COMPARISON: CT head wo con* [id number] 03/10/2023 6:51 AM RADIATION DOSE METRICS: Total DLP (mGy-cm): 2778.88 FINDINGS: Brain: There is moderate cerebral atrophy. There is mild diffuse heterogeneity of the white matter attenuation, consistent with chronic white matter ischemic changes. Negative for intracranial hemorrhage. Negative for intracranial mass. No focal acute brain ischemia. Negative for midline shift of the brain. Cerebral ventricles: No ventriculomegaly. Paranasal sinuses: Visualized sinuses are unremarkable. No fluid levels. Mastoid air cells: Visualized mastoid air cells are well aerated. Bones/joints: Unremarkable. No acute fracture. Soft tissues: Unremarkable. CT/CT head wo con* [id number] IMPRESSION: Negative for acute intracranial pathology.
--- NOTE | 2023-04-27 23:27 | W.ED.AMS ---
HPI - Altered Mental Status General: Chief Complaint: Altered Mental Status Stated Complaint: Altered Loc Time Seen by Provider: 04/27/23 23:06 History of Present Illness: 73-year-old male gentleman presenting from home with mental status changes. He has been having home health come to the home. Black stools were noted earlier today by the home health nurse. He is also been treating chronic ulcerations/wounds to his bilateral legs, and feet. The seem to be getting worse. Mental status has been waxing and waning today. On my interview, he is alert, awake, and talking. Review of Systems Const: Denies: fever(s) ENMT: Denies: throat pain Card: Denies: chest pain Resp: Reports: dyspnea; Denies: productive cough or non-productive cough GI: Denies: vomiting PFSH ED PFSH: Medical History Cardiomyopathy Pleural effusion Rib fracture Altered mental status Hypernatremia CHENCHO (acute kidney injury) Gram-positive bacteremia Septic shock Sepsis CHF (congestive heart failure) NSTEMI (non-ST elevated myocardial infarction) Acute cystitis History of pericarditis Degenerative arthritis Degenerative joint disease of spine Obstructive sleep apnea Peripheral neuropathy GERD (gastroesophageal reflux disease) Iron overload 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) Myelodysplastic syndrome Initially diagnosed in July 2002 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 Essential hypertension Type 2 diabetes mellitus without complications Surgical History History of cholecystectomy S/P ORIF (open reduction internal fixation) fracture (2014) Status post creation of pericardial window (2008) History of tonsillectomy History of total right hip arthroplasty (2015) History of lumbar laminectomy Social History Smoking and tobacco/nicotine status: never used tobacco/nicotine Physical Exam Const: GENERAL APPEARANCE: cooperative and ill appearing HENMT: COMMON NORMALS: Normal external nose present NOSE: Normal external nose present Eye: COMMON NORMALS: Equal, round and reactive pupils present and EOMs intact bilaterally PUPIL: Yes Equal, round and reactive pupils present Chest: COMMONS NORMALS: normal inspection of the chest Resp: COMMON NORMALS: clear to auscultation bilaterally EFFORT & INSPECTION: Yes tachypneic AUSCULTATION: clear to auscultation bilaterally Cardio: COMMON NORMALS: regular rate and regular rhythm RATE: regular rate RHYTHM: regular rhythm GI: COMMON NORMALS: Normal to inspection, nondistended, normoactive bowel sounds present and non-tender Extremity: COMMON NORMALS: no pedal edema Neuro: MADDI COMA SCALE: document GCS findings [place] coma scale eye opening: Spontaneous [place] coma scale verbal response: Confused [place] coma scale motor response: Obey commands Maddi coma scale total score: 14 Skin: NARRATIVE SKIN EXAM: Multiple chronic appearing ulcerations to the skin, anterior and medial lower legs bilaterally. There are ulcerations that are chronic to the great toes bilaterally as well. Skin changes related to stasis dermatitis surrounding. Ulcers appear somewhat cellulitic, especially on the anterior medial legs. No streaking. Course Vital Signs: Vital signs: Vital Signs Temperature 98.2 F 04/27/23 23:06 Pulse Rate 63 04/28/23 00:05 Respiratory Rate 17 04/28/23 00:05 Blood Pressure 166/95 04/28/23 00:05 Pulse Oximetry 99 04/28/23 00:05 Oxygen Delivery Me thod Room Air 04/28/23 00:05 MDM - Altered Mental Status Medical Decision Making Altered mental status in the patient with bilateral chronic stasis wounds to the legs. White blood cell count is 4.7. His hemoglobin is 10. CRP is 65 lactic acid is 1.5. His creatinine is 1.1. X-rays are negative for bony changes related to his skin ulcerations. Urinalysis is pending. Chest x-ray is negative for acute problems. Head CT is negative. The patient is still confused. His mental status waxes and wanes in the ER. He will be observed for acute alteration mental status. Hospitalist has seen the patient in the ER. Lab Data 04/27/23 23:02 04/27/23 23:02 Radiology Impressions Chest X-Ray 04/27/23 23:06 IMPRESSION: No significant change from comparison. Foot X-Ray 04/27/23 23:06 IMPRESSION: Negative for acute bone pathology. Tibia/Fibula X-Ray 04/27/23 23:06 IMPRESSION: Negative for acute osseous pathology. Head CT 04/27/23 23:07 IMPRESSION: Negative for acute intracranial pathology. Laboratory Results WBC 4.73 10^3/uL (3.29-11.43) 04/27/23 23: RBC 4.03 10^6/uL (3.85-5.65) 04/27/23 23:02 Hgb 10.40 g/dL (11.27-16.99) L 04/27/23 23:02 Hct 35.4 % (37-53) L 04/27/23 23:02 MCV 87.8 fl (82-101) 04/27/23 23: MCH 25.8 pg (27-33) L 04/27/23 23: MCHC 29.4 g/dL (30-55) L 04/27/23 23: RDW 19.5 % (12.1-15.1) H 04/27/23 23: Plt Count 96 10^3/cmm (157-399) L 04/27/23 23: MPV 11.1 fL (7.4-10.4) H 04/27/23 23:02 Neut % (Auto) 61.4 % 04/27/23 23: Lymph % (Auto) 28.1 % 04/27/23 23:02 [place] % (Auto) 6.3 % 04/27/23 23: Eos % (Auto) 2.3 % 04/27/23 23: Baso % (Auto) 1.7 % 04/27/23 23:02 Neut # (Auto) 2.90 10^3/uL (1.8-7.7) 04/27/23 23: Lymph # (Auto) 1.3 10^3/uL (0.8-4.8) 04/27/23 23:02 [place] # (Auto) 0.3 10^3/uL (0.2-0.9) 04/27/23 23:02 Eos # (Auto) 0.1 10^3/uL (0.0-0.8) 04/27/23 23:02 Baso # (Auto) 0.1 10^3/uL (0.0-0.1) 04/27/23 23:02 Nucleated RBC % (auto) 0 % 04/27/23 23: Nucleated RBCs # 0.0 /100WBC 04/27/23 23:02 Specimen Type Arterial 04/27/23 23:25 Sample Site Brachial, right 04/27/23 23:25 ABG pH 7.42 (7.35-7.45) 04/27/23 23:25 ABG pCO2 36.1 mmHg (35-45) 04/27/23 23:25 ABG pO2 68.8 mmHg (80.0-100.0) L 04/27/23 23:25 ABG PO2/FiO2 Ratio 0 04/27/23 23:25 ABG HCO3 23.3 mmol/L (22-26) 04/27/23 23: ABG Base Excess -0.9 mmol/L (-2.0-2.0) 04/27/23 23:25 [place] Test N/a 04/27/23 23: Hematocrit 31.3 % (42-52) L 04/27/23 23:25 O2 Delivery Device Room air 04/27/23 23:25 FiO2 21.0 % 04/27/23 23:25 Biomass Boiler Operator ID Amh 04/27/23 23:25 Sodium 141 mmol/L (136-145) 04/27/23 23:02 Potassium 4.4 mmol/L (3.5-5.1) 04/27/23 23:02 Chloride 106 mmol/L (98-107) 04/27/23 23:02 Carbon Dioxide 26 mmol/L (22-29) 04/27/23 23:02 Anion Gap 13.4 (5-19) 04/27/23 23:02 BUN 18 mg/dL (8-23) 04/27/23 23:02 Creatinine 1.1 mg/dL (0.7-1.2) 04/27/23 23:02 GFR Calculation Not Reportable 04/27/23 23:02 Glucose 95 mg/dL (65-115) 04/27/23 23:02 Estimat Average Glucose 88 04/28/23 00:10 Hemoglobin A1c 4.7 % (4.0-6.0) 04/28/23 00:10 Calculated Osmolality 294 mOsm/kg (285-295) 04/27/23 23:02 Lactic Acid 1.5 mmol/L (0.5-2.2) 04/27/23 23:02 Calcium 9.3 mg/dL (8.5-10.5) 04/27/23 23:02 Total Bilirubin 0.7 mg/dL (0.15-1.2) 04/27/23 23:02 AST 22 U/L (0-40) 04/27/23 23:02 ALT 11 U/L (0-41) 04/27/23 23:02 Alkaline Phosphatase 266 U/L (40-130) H 04/27/23 23:02 Ammonia 14 umol/L (16-60) L 04/27/23 23:36 C-Reactive Protein 65.1 mg/L (0.0-4.9) H 04/27/23 23:02 Total Protein 8.2 g/dL (6.6-8.7) 04/27/23 23:02 Albumin 3.6 g/dL (3.5-5.2) 04/27/23 23:02 Globulin 4.6 g/dL (1.3-4.6) 04/27/23 23:02 Ethyl Alcohol < 10 mg/dL (0-10) 04/27/23 23:02 All radiology interpretation(s) finalized by discharge Discharge Plan Discharge Patient Disposition: Placed in Observation Admit Provider: Victoriano Phan Clinical Impression: Ulcer of left lower leg, Acute alteration in mental status Condition: Stable Coding Level of Care Code ED Student Services Coordinator for Kelly Dudley
[2023-04-27 23:35] LABS: Basophils # 0.1 10^3/uL (0.0-0.1); Basophils % 1.7 %; Eosinophils # 0.1 10^3/uL (0.0-0.8); Eosinophils % 2.3 %; Hematocrit 35.4 % (37-53); Lymphocytes # 1.3 10^3/uL (0.8-4.8); Lymphocytes % 28.1 %; Mean Corpuscular HGB Conc 29.4 g/dL (30-55); Mean Corpuscular Hemoglobin 25.8 pg (27-33); Mean Corpuscular Volume 87.8 fl (82-101); Mean Platelet Volume 11.1 fL (7.4-10.4); Monocytes # 0.3 10^3/uL (0.2-0.9); Monocytes % 6.3 %; Neutrophils % 61.4 %; Nucleated Red Blood Cells % 0 %; Platelet Count 96 10^3/cmm (157-399); Red Blood Count 4.03 10^6/uL (3.85-5.65); Red Cell Distribution Width 19.5 % (12.1-15.1); White Blood Count 4.73 10^3/uL (3.29-11.43)
[2023-04-27 23:36] LABS: ABG PCO2 36.1 mmHg (35-45); ABG PH Result 7.42 (7.35-7.45); Arterial Blood Gas Hematocrit 31.3 % (42-52); Base Excess ABG -0.9 mmol/L (-2.0-2.0); Blood Gas Operator Identificat AMH; Blood Gas Sample Site Brachial, right; Blood Gas Sample Type Arterial; HCO3 ABG 23.3 mmol/L (22-26); Oxygen Device ROOM AIR; PO2 ABG 68.8 mmHg (80.0-100.0); PO2 FiO2 Ratio Arterial Blood 0
--- NOTE | 2023-04-27 23:50 | P.HP_ITS ---
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 Most recently found to have malignant right pleural effusion awaiting further treatment planning with oncology. Other comorbidities include systolic and diastolic heart failure with a EF of 45%, type 2 diabetes mellitus, hypertension malignant right-sided pleural effusion presented today chief complaint of altered mental status and lower GI bleed. Patient recently had fracture of proximal end of right tibia he has chronic area of avascular necrosis Ortho recommended medical management patient has been recently discharged from wound care services and home health services, as per the family he has been confused for last 2 days, he has uses 2 L of oxygen intermittently, he has been experiencing hallucination, no fever but today when home health nurse checked on him he had black tarry stool episode at home. Patient has not been able to eat properly for at least 1 year, he was supposed to see general surgery for endoscopy to rule out cause for recurrent/cyclical vomiting. He is diabetic, no previous official diagnosis of gastroparesis. Family history positive for stomach cancer father of complications from stomach cancer At the time of my evaluation patient is stating that he was trying to get a glass from a cabinet and then he takes a tangent, speech gets mumbled, patient told me to change his position stating that he is hurting in his back and he wanted to sleep on his right side I do not see any focal deficit at the time of evaluation Currently he is on room air hemodynamically stable Hemoglobin stable at 10.4, thrombocytopenia Review of Systems 2 General: Reports: ROS unobtainable due to medical condition Medications/Allergies Home Medications Medication Instructions Recorded Confirmed Last Taken Type acetaminophen 650 mg 1,300 mg PO Q12H PRN Pain 08/13/19 04/24/23 Unknown History tablet,extended release (Tylenol Arthritis Pain) insulin lispro 100 unit/mL See Rx Instructions .Route .COMPLEX 07/02/20 04/24/23 03/08/22 History subcutaneous solution (Humalog U-100 Insulin) dimenhydrinate 50 mg tablet 50 mg PO Q8H PRN Dizziness 03/09/22 04/24/23 Unknown History (Dramamine) [id number] 300 mcg-K 60 1 tab PO QAM 03/09/22 04/24/23 02/10/23 History mcg-lycop 600 mcg-lutein 300 mcg tablet (Centrum Silver Men) albuterol sulfate 90 mcg/actuation 2 puff inhalation Q6H PRN 03/21/22 04/24/23 Unknown Rx aerosol inhaler (ProAir HFA) shortness of breath or wheezing #8.5 grams Diabetic shoes #2 ea 10/24/22 04/24/23 Unknown Rx sucralfate 1 gram tablet (Carafate) 1 g PO Q6H #60 tabs 11/14/22 04/24/23 02/10/23 Rx ondansetron 4 mg disintegrating 4 mg PO Q6H PRN nausea and 12/04/22 04/24/23 Unknown Rx tablet vomiting #90 tabs Compression stockings - 8-15mmHg #1 ea 12/26/22 04/24/23 Unknown Rx hydroxyzine HCl 10 mg tablet 10 mg PO QAM 02/10/23 04/24/23 02/10/23 History SEE PHARMACY COMMENT pantoprazole 40 mg tablet,delayed 40 mg PO QAM 02/10/23 04/24/23 02/10/23 History release tamsulosin 0.4 mg capsule 0.4 mg PO QAM 02/10/23 04/24/23 02/10/23 History bisacodyl 5 mg tablet,delayed 10 mg (2 x 5 mg) PO DAILY PRN 02/16/23 04/24/23 Unknown Rx release Constipation (see protocol) #30 tabs lactulose 20 gram/30 mL oral 10 g (15 mL) PO TID #1,200 mL 02/16/23 04/24/23 Unknown Rx solution potassium chloride 10 mEq 10 meq PO DAILY #30 tabs 02/19/23 04/24/23 Unknown Rx tablet,extended release spironolactone 50 mg tablet 50 mg PO BID #60 tabs 02/19/23 04/24/23 Unknown Rx gabapentin 600 mg tablet See Rx Instructions .Route 02/23/23 04/24/23 Unknown Rx .COMPLEX #120 tabs furosemide 20 mg tablet 40 mg (2 x 20 mg) PO QAM 30 days 03/19/23 04/24/23 02/10/23 Rx #60 tabs oxycodone 10 mg tablet 10 mg PO Q4H PRN Pain 7 days #42 03/19/23 04/24/23 Unknown Rx tabs Hinged Knee Brace #1 ea 04/24/23 04/24/23 Unknown Rx Allergies Allergy/AdvReac Type Severity Reaction Status Date / Time methadone Allergy Unknown Unknown Verified 04/24/23 12:05 carisoprodol [From Soma] Allergy Unknown Verified 04/24/23 12:05 codeine Allergy Unknown Verified 04/24/23 12:05 morphine Allergy Unknown Verified 04/24/23 12:05 PFSH Acute 2 PFSH: Medical History Cardiomyopathy Pleural effusion Rib fracture Altered mental status Hypernatremia CHENCHO (acute kidney injury) Gram-positive bacteremia Septic shock Sepsis CHF (congestive heart failure) NSTEMI (non-ST elevated myocardial infarction) Acute cystitis History of pericarditis Degenerative arthritis Degenerative joint disease of spine Obstructive sleep apnea Peripheral neuropathy GERD (gastroesophageal reflux disease) Iron overload 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) Myelodysplastic syndrome Initially diagnosed in July 2002 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 Essential hypertension Type 2 diabetes mellitus without complications Surgical History History of cholecystectomy S/P ORIF (open reduction internal fixation) fracture (2014) Status post creation of pericardial window (2008) History of tonsillectomy History of total right hip arthroplasty (2015) History of lumbar laminectomy Social History Smoking and tobacco/nicotine status: never used tobacco/nicotine Vitals/I&O/Wt Last Vital Signs Temp 98.2 F 04/27/23 23:06 Pulse 77 04/27/23 23:06 Resp 20 H 04/27/23 23:06 BP 139/93 04/27/23 23:06 Weight last 48 hrs Weight 81.647 kg Physical Exam 2 Narrative: Patient is confused Oriented to himself Moving his extremities I do not see any focal deficit Is able to answer simple questions Currently on room air Hemodynamic stable Lower extremity min assist dermatitis Multiple dried ulcers Bilateral lower extremity ulcers with dressing No active drainage or soaking of dressing noted Macerated skin Patient has not been able to void S1, S2 Family at the bedside Abdomen distended but soft Data 04/28/23 04:31 04/28/23 04:31 A&P Assessment and plan (1) Cardiomyopathy: (2) Moderate mitral regurgitation: (3) Type 2 diabetes, controlled, with neuropathy: (4) Type 2 diabetes mellitus with foot ulcer: (5) Iron overload: (6) Acute on chronic anemia: (7) History of allogeneic bone marrow transplant: (8) Hodgkin lymphoma of intrathoracic lymph nodes: (9) Myelodysplastic syndrome: (10) Ulcer of left lower leg: (11) Non-healing ulcer of multiple sites of lower extremity, limited to breakdown of skin: (12) Peripheral edema: (13) Malaise and fatigue: Plan Metabolic encephalopathy Patient is retaining urine History of UTI in the past I will place Bledsoe catheter Obtain UA Will obtain CT head Low extremity ulcer recently got discharged from wound care and home health services Daily dressing change Will apply topical antibiotics and use sterile dry dressing daily basis Acute on chronic hypoxia Hypoxia evident on ABG Patient uses 2 L of oxygen intermittently at home X-ray showing recurrence of right-sided pleural effusion Previous thoracentesis did not reveal malignant effusion Systolic CHF without significant exacerbation Patient has MR Will request BNP, Urinary retention Place Bledsoe catheter Black tarry stools Upper GI bleed? Start Protonix Family history of stomach cancer patient has been experiencing recurrent nausea vomiting Diabetic gastroparesis? Check A1c level Cardiac/consistent carb diet, sliding scale, check A1c level Full code DVT prophylaxis on board Self interpretation of chest x-ray while awaiting for official report: Right- sided recurrent pleural effusion Review of records: Significant past medical history, MDS, pleural effusion pathology showed malignancy earlier this year back pain There is moderate degenerative disease in the lumbar spine. There are chronic compression fractures at L2 and L3. There is bilateral L2 through L4 osseous facet fusion. Findings are stable since 07/14/2022. The right hip prosthesis is intact and well aligned. The left hip is unremarkable. The bony pelvis is intact. There is severe spinal stenosis at L4-L5. Th Hepatosplenomegaly, Fatty infiltration of liver Requested ammonia level History of anasarca third spacing with recurrent ascites Attestations 2 Medical Necessity Statement*: More than 2 midnights anticipated Diagnoses Cardiomyopathy I42.9 Moderate mitral regurgitation I34.0 Type 2 diabetes, controlled, with neuropathy E11.40 Type 2 diabetes mellitus with foot ulcer E11.621; L97.509 Iron overload E83.19 Acute on chronic anemia D64.9 History of allogeneic bone marrow transplant Z94.81 Hodgkin lymphoma of intrathoracic lymph nodes C81.92 Myelodysplastic syndrome D46.9 Ulcer of left lower leg L97.929 Non-healing ulcer of multiple sites of lower extremity, limited to breakdown of skin L97.901 Peripheral edema R60.9 Malaise and fatigue R53.81; R53.83
[2023-04-28] VITALS (10 sets, daily range): BP systolic 137–177; BP diastolic 60–95; PULSE 55–85; RESP 12–19; TEMP 36.5–37.1; O2SAT 93–100; BMI 30.7
[2023-04-28] LABS: Ammonia 14 umol/L (16-60)
[2023-04-28] LABS: Alanine Aminotransferase 11 U/L (0-41); Albumin Level 3.6 g/dL (3.5-5.2); Alkaline Phosphatase 266 U/L (40-130); Anion Gap 13.4 (5-19); Aspartate Amino Transferase 22 U/L (0-40); Blood Urea Nitrogen 18 mg/dL (8-23); C Reactive Protein 65.1 mg/L (0.0-4.9); Calcium 9.3 mg/dL (8.5-10.5); Carbon Dioxide 26 mmol/L (22-29); Chloride 106 mmol/L (98-107); Globulin 4.6 g/dL (1.3-4.6); Glucose 95 mg/dL (65-115); Lactic Sepsis W/Reflex 1.5 mmol/L (0.5-2.2); Osmolality Calculated 294 mOsm/kg (285-295); Potassium 4.4 mmol/L (3.5-5.1); Sodium 141 mmol/L (136-145); Total Bilirubin 0.7 mg/dL (0.15-1.2); Total Protein 8.2 g/dL (6.6-8.7)
[2023-04-28 00:07] LABS: Alcohol Level < 10 mg/dL (0-10)
--- NOTE | 2023-04-28 00:07 | CTR_ITS ---
PROCEDURE INFORMATION: Exam: CT Abdomen And Pelvis Without Contrast Exam date and time: 04/28/2023 1:58 AM Age: 73 years old Clinical indication: Vomiting; Prior surgery; Surgery date: 6+ months; Surgery type: Gb. Lumbar. Appy. RT hip. Patient HX: Coffee ground emesis per family. History of lymphoma. ; Additional info: Cyclical vomiting TECHNIQUE: Imaging protocol: Computed tomography of the abdomen and pelvis without contrast. Radiation optimization: All CT scans at this facility use at least one of these dose optimization techniques: automated exposure control; mA and/or kV adjustment per patient size (includes targeted exams where dose is matched to clinical indication); or iterative reconstruction. REPORTING DATA: Count of CT and Cardiac NM exams in prior 12 months: This patient has received 11 known CTs and 0 known cardiac nuclear medicine studies in the 12 months prior to the current study. COMPARISON: CT chest abdpel w/*[id number] 02/22/2023 5:08 PM RADIATION DOSE METRICS: Total DLP (mGy-cm): 847.43 FINDINGS: Lungs: Large rounded airspace opacity in the right lower lobe most likely representing chronic/rounded atelectasis. Pleural spaces: Moderate to large volume bilateral pleural effusions. Liver: Normal. No mass. Gallbladder and bile ducts: Cholecystectomy. Nondilated biliary system. Pancreas: Normal. No ductal dilation. Spleen: Normal. No splenomegaly. Adrenal glands: Normal. No mass. Kidneys and ureters: Small nonobstructing stone in the lower left kidney. Stomach and bowel: Unremarkable. No obstruction. No mucosal thickening. Appendix: No evidence of appendicitis. Intraperitoneal space: Small volume ascites. No free air. Vasculature: Unremarkable. No abdominal aortic aneurysm. Lymph nodes: Unremarkable. No enlarged lymph nodes. Urinary bladder: Bladder decompressed. Bledsoe catheter within bladder. Reproductive: Unremarkable as visualized. Bones/joints: Wedge deformities of lower thoracic and upper lumbar spine vertebral bodies unchanged from prior. Negative for acute fracture. Soft tissues: Body wall anasarca. CT/CT abdomen pelvis wo con [id number] IMPRESSION: 1. Third spacing of fluid in the chest and abdomen is overall increased from comparison. 2. No focal acute inflammatory disease process in the abdomen or pelvis identified.
[2023-04-28 00:33] LABS: Estmated Average Glucose 88; Hemoglobin A1C 4.7 % (4.0-6.0)
[2023-04-28] MEDS: lidocaine 2% Urojet 20 mL TOPICAL (01:00)
[2023-04-28 01:55] LABS: Glucose Urine UA Norm (Normal); Ketones Urine 1+ (Negative); Protein Urine 2+ (Negative); Specific Gravity, Urine 1.025 (1.005-1.030); Urine Appearance Hazy (CLEAR); Urine Color Dark Yellow (Yellow); pH Urine 5 (5-7)
[2023-04-28 01:56] LABS: Add Urine Microscopic? YES; Bilirubin Urine 1+ (Negative); Blood Urine Trace (Negative); Leukocyte Esterase Urine Negative (Negative); Nitrate Urine Negative (Negative); Urobilinogen Urine 4 mg/dL (Negative)
[2023-04-28 01:57] LABS: Bacteria Urine TRACE /hpf; Mucus Urine 1+ /hpf; RBC Urine 0-4 /hpf (0-2); WBC Urine 0-4 /hpf (0-5)
[2023-04-28] MEDS: oxyCODONE 5 mg IR Tab/Cap 10 MG PO ×2 (02:42→17:57)
[2023-04-28 02:52] LABS: Glucose Point of Care 114 mg/dL (70-110)
[2023-04-28 05:05] LABS: Basophils # 0.1 10^3/uL (0.0-0.1); Basophils % 1.4 %; Eosinophils # 0.1 10^3/uL (0.0-0.8); Eosinophils % 3.1 %; Hematocrit 31.6 % (37-53); Lymphocytes % 28.4 %; Mean Corpuscular HGB Conc 29.1 g/dL (30-55); Mean Corpuscular Hemoglobin 25.8 pg (27-33); Mean Corpuscular Volume 88.5 fl (82-101); Mean Platelet Volume 11.5 fL (7.4-10.4); Monocytes # 0.3 10^3/uL (0.2-0.9); Monocytes % 8.6 %; Neutrophils # 2.09 10^3/uL (1.8-7.7); Neutrophils % 58.2 %; Nucleated Red Blood Cells % 0 %; Platelet Count 77 10^3/cmm (157-399); Red Blood Count 3.57 10^6/uL (3.85-5.65); Red Cell Distribution Width 19.1 % (12.1-15.1); White Blood Count 3.59 10^3/uL (3.29-11.43)
[2023-04-28 05:26] LABS: Alanine Aminotransferase 8 U/L (0-41); Albumin Level 2.8 g/dL (3.5-5.2); Alkaline Phosphatase 219 U/L (40-130); Anion Gap 14.1 (5-19); Aspartate Amino Transferase 19 U/L (0-40); Blood Urea Nitrogen 19 mg/dL (8-23); C Reactive Protein 58.9 mg/L (0.0-4.9); Calcium 8.3 mg/dL (8.5-10.5); Carbon Dioxide 24 mmol/L (22-29); Chloride 107 mmol/L (98-107); Globulin 3.8 g/dL (1.3-4.6); Glucose 90 mg/dL (65-115); Magnesium 1.8 mg/dL (1.7-2.3); Osmolality Calculated 294 mOsm/kg (285-295); Potassium 4.1 mmol/L (3.5-5.1); Sodium 141 mmol/L (136-145); Total Bilirubin 0.7 mg/dL (0.15-1.2); Total Protein 6.6 g/dL (6.6-8.7)
[2023-04-28 06:36] LABS: Glucose Point of Care 82 mg/dL (70-110)
[2023-04-28] MEDS: FUROsemide 20 mg Tablet PO (06:42)
[2023-04-28] MEDS: sucralfate 1 gm Tablet PO ×4 (06:42→20:04)
[2023-04-28] MEDS: tamsulosin 0.4 mg Capsule PO (06:42)
[2023-04-28] MEDS: pantoprazole 40 mg SDV IVP ×2 (08:32→17:56)
[2023-04-28] MEDS: lanolin oint 7 gm 1 APPLIC TOPICAL (09:19)
[2023-04-28] MEDS: potassium chloride ER 10 mEq Tablet PO (09:20)
[2023-04-28] MEDS: spironolactone 25 mg Tablet 50 MG PO (09:20)
[2023-04-28] MEDS: heparin 5,000 unit/mL INJ 1 mL 5000 UNIT SUBCUT (09:24)
[2023-04-28 11:24] LABS: Glucose Point of Care 124 mg/dL (70-110)
[2023-04-28 13:51] LABS: Basophils # 0.1 10^3/uL (0.0-0.1); Basophils % 1.2 %; Eosinophils # 0.1 10^3/uL (0.0-0.8); Lymphocytes % 23.7 %; Mean Corpuscular HGB Conc 29.1 g/dL (30-55); Mean Corpuscular Hemoglobin 25.6 pg (27-33); Mean Corpuscular Volume 87.9 fl (82-101); Mean Platelet Volume 11.9 fL (7.4-10.4); Monocytes # 0.2 10^3/uL (0.2-0.9); Monocytes % 5.2 %; Neutrophils # 2.85 10^3/uL (1.8-7.7); Neutrophils % 66.7 %; Nucleated Red Blood Cells % 0 %; Platelet Count 88 10^3/cmm (157-399); Red Blood Count 3.98 10^6/uL (3.85-5.65); Red Cell Distribution Width 19.2 % (12.1-15.1); White Blood Count 4.27 10^3/uL (3.29-11.43)
[2023-04-28 16:32] LABS: Glucose Point of Care 89 mg/dL (70-110)
--- NOTE | 2023-04-28 18:25 | PM.PN ---
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 Vitals/I&O/Wt Last Vital Signs Temp 97.9 F 04/28/23 16:11 Pulse 55 L 04/28/23 16:11 Resp 17 04/28/23 17:57 BP 148/65 04/28/23 16:11 Pulse Ox 100 04/28/23 16:11 O2 Del Method Nasal Cannula 04/28/23 16:11 O2 Flow Rate 3 04/28/23 08:20 04/28/23 04/28/23 04/28/23 06:59 14:59 22:59 Intake Total 2449.41 / 2449.41 960 / 960 Output Total 400 / 400 600 / 600 Balance 2049.41 / 2049.41 960 / 960 -600 / 360 Weight last 48 hrs Weight 89.868 kg Weight 86.183 kg Weight 81.647 kg Physical Exam Narrative: Patient is awake and alert Euvolemic GCS of Currently on room air Nonfocal neuroexam Abdomen soft Pleasant and cooperative S1, S2 Abdomen soft Urinary Catheter Management: Bledsoe: Cath Placed During This Visit: yes Reason for Continuing Indwelling Catheter: Other Urinary Catheter Date of Insertion: 04/28/23 Urinary Catheter Time of Insertion: 01:25 Data 04/28/23 13:42 04/28/23 04:31 Micro: Microbiology 04/28/23 03:19 Occult Blood (FIT) - Final Stool Routine Collection A&P Assessment and plan (1) Essential hypertension: (2) CHF (congestive heart failure): Qualifiers: Heart failure chronicity: acute on chronic Heart failure type: unspecified Qualified Code(s): I50.9 - Heart failure, unspecified (3) Cardiomyopathy: (4) Moderate mitral regurgitation: (5) Type 2 diabetes, controlled, with neuropathy: (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 Coulter Patient and family do not want EGD while he is here Hemoglobin stable Hemodynamic stable Continue Protonix and sucralfate Discontinue heparin Will keep him n.p.o. after midnight Full code No acute signs of congestive heart failure Confusion improved Follows up with Dr. Bal for MDS Attestations Medical Necessity Statement*: Possible discharge in next 24 to 48 hours Diagnoses Essential hypertension I10 CHF (congestive heart failure) I50.9 Heart failure chronicity: acute on chronic Heart failure type: unspecified Cardiomyopathy I42.9 Moderate mitral regurgitation I34.0 Type 2 diabetes, controlled, with neuropathy E11.40 History of allogeneic bone marrow transplant Z94.81 Acute on chronic anemia D64.9 Anemia D64.9 Myelodysplastic syndrome D46.9
--- NOTE | 2023-04-28 18:58 | P.CONIM_ITS ---
Providers/Reason For Consult 2 Consulting Physician/Specialty*: Hospitalist Reason for Consult*: Upper GI bleed Requesting Physician: Kristyn Attending Physician: Erinn Abbott MD Primary Care Provider: Aparna Ann History of Present Illness History of Present Illness Inder Caldwell is a 73 year old male who presents with black tarry stools. The patient also complains of intermittent abdominal pain. The patient's had this pain for approximately 13 months. The pain, comes and goes. He describes it as his upper abdomen drawing up on him. The pain will last anywhere from a couple hours to maybe a couple days. The patient is seen several physicians for this. He has undergone a CT scan of his abdomen. He has not undergone an upper GI the best I can tell. The patient also has a 13-month history of nausea and vomiting. The patient basically will eat and then vomit nearly immediately. The patient is worried that he may have stomach cancer. The patient stated that his father had stomach cancer. Review of Systems 2 General: Reports: 10 or more systems reviewed and unremarkable except in HPI and below Medications/Allergies Home Medications Medication Instructions Recorded Confirmed Last Taken Type acetaminophen 650 mg 1,300 mg PO Q12H PRN Pain 08/13/19 04/28/23 Unknown History tablet,extended release (Tylenol Arthritis Pain) insulin lispro 100 unit/mL See Rx Instructions .Route .COMPLEX 07/02/20 04/28/23 03/08/22 History subcutaneous solution (Humalog U-100 Insulin) dimenhydrinate 50 mg tablet 50 mg PO Q8H PRN Dizziness 03/09/22 04/28/23 Unknown History (Dramamine) albuterol sulfate 90 mcg/actuation 2 puff inhalation Q6H PRN 03/21/22 04/28/23 Unknown Rx aerosol inhaler (ProAir HFA) shortness of breath or wheezing #8.5 grams Diabetic shoes #2 ea 10/24/22 04/28/23 Unknown Rx ondansetron 4 mg disintegrating 4 mg PO Q6H PRN nausea and 12/04/22 04/28/23 Unknown Rx tablet vomiting #90 tabs Compression stockings - 8-15mmHg #1 ea 12/26/22 04/28/23 Unknown Rx hydroxyzine HCl 10 mg tablet 10 mg PO QAM 02/10/23 04/28/23 02/10/23 History SEE PHARMACY COMMENT pantoprazole 40 mg tablet,delayed 40 mg PO QAM 02/10/23 04/28/23 02/10/23 History release tamsulosin 0.4 mg capsule 0.4 mg PO QAM 02/10/23 04/28/23 02/10/23 History lactulose 20 gram/30 mL oral 10 g (15 mL) PO TID #1,200 mL 02/16/23 04/28/23 Unknown Rx solution potassium chloride 10 mEq 10 meq PO DAILY #30 tabs 02/19/23 04/28/23 Unknown Rx tablet,extended release spironolactone 50 mg tablet 50 mg PO BID #60 tabs 02/19/23 04/28/23 Unknown Rx gabapentin 600 mg tablet See Rx Instructions .Route 02/23/23 04/28/23 Unknown Rx .COMPLEX #120 tabs oxycodone 10 mg tablet 10 mg PO Q4H PRN Pain 7 days #42 03/19/23 04/28/23 Unknown Rx tabs Hinged Knee Brace #1 ea 04/24/23 04/28/23 Unknown Rx furosemide 20 mg tablet 20 mg PO DAILY 04/28/23 04/28/23 Unknown History multivitamin with minerals 1 tab PO DAILY 04/28/23 04/28/23 Unknown History Allergies Allergy/AdvReac Type Severity Reaction Status Date / Time methadone Allergy Unknown Unknown Verified 04/28/23 08:51 carisoprodol [From Soma] Allergy Unknown Verified 04/28/23 08:51 codeine Allergy Unknown Verified 04/28/23 08:51 morphine Allergy Unknown Verified 04/28/23 08:51 Current Medications Generic Name Dose Route Start Last Admin Trade Name Freq PRN Reason Stop Dose Admin Furosemide 20 mg 04/28/23 06:00 04/28/23 06:42 Furosemide 20 Mg Tablet PO 20 mg QAM [facility] Administration Heparin Sodium (Porcine) 5,000 unit 04/28/23 09:00 04/28/23 09:24 Heparin 5,000 Unit/Ml Inj 1 Ml SUBCUT 5,000 unit Q12H SHIRA Administration Insulin Human Lispro 0 unit 04/28/23 08:00 04/28/23 17:16 Insulin Lispro 100 Unit/1 Ml SUBCUT Not Given TIDWM [facility] Protocol Lanolin 1 applic 04/28/23 06:38 04/28/23 09:19 Lanolin Oint 7 Gm TOPICAL 1 applic PRN PRN Administration DRYNESS Oxycodone HCl 10 mg 04/28/23 00:53 04/28/23 17:57 Oxycodone 5 Mg Ir Tab/Cap PO 10 mg Q4H PRN Administration PAIN Pantoprazole Sodium 40 mg 04/28/23 09:00 04/28/23 17:56 Pantoprazole 40 Mg Sdv IVP 40 mg BID SHIRA Administration Potassium Chloride 10 meq 04/28/23 09:00 04/28/23 09:20 Potassium Chloride Er 10 Meq Tablet PO 10 meq DAILY SHIRA Administration Spironolactone 50 mg 04/28/23 09:00 04/28/23 09:20 Spironolactone 25 Mg Tablet PO 50 mg DAILY SHIRA Administration Sucralfate 1 gm 04/28/23 07:00 04/28/23 17:56 Sucralfate 1 Gm Tablet PO 1 gm AC&BEDTIME SHIRA Administration Tamsulosin HCl 0.4 mg 04/28/23 06:00 04/28/23 06:42 Tamsulosin 0.4 Mg Capsule PO 0.4 mg QAM SHIRA Administration PFSH Acute 2 PFSH: Medical History Cardiomyopathy Pleural effusion Rib fracture Altered mental status Hypernatremia CHENCHO (acute kidney injury) Gram-positive bacteremia Septic shock Sepsis CHF (congestive heart failure) NSTEMI (non-ST elevated myocardial infarction) Acute cystitis History of pericarditis Degenerative arthritis Degenerative joint disease of spine Obstructive sleep apnea Peripheral neuropathy GERD (gastroesophageal reflux disease) Iron overload 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) Myelodysplastic syndrome Initially diagnosed in July 2002 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 Essential hypertension Type 2 diabetes mellitus without complications Surgical History History of cholecystectomy S/P ORIF (open reduction internal fixation) fracture (2014) Status post creation of pericardial window (2008) History of tonsillectomy History of total right hip arthroplasty (2015) History of lumbar laminectomy Social History Smoking and tobacco/nicotine status: never used tobacco/nicotine Vitals/I&O/Wt Last Vital Signs Temp 97.9 F 04/28/23 16:11 Pulse 55 L 04/28/23 16:11 Resp 17 04/28/23 17:57 BP 148/65 04/28/23 16:11 Pulse Ox 100 04/28/23 16:11 O2 Del Method Nasal Cannula 04/28/23 16:11 O2 Flow Rate 3 04/28/23 08:20 04/28/23 04/28/23 04/28/23 06:59 14:59 22:59 Intake Total 2449.41 / 2449.41 960 / 960 Output Total 400 / 400 600 / 600 Balance 2049.41 / 2049.41 960 / 960 -600 / 360 Weight last 48 hrs Weight 198 lb 2 oz Weight 190 lb Weight 180 lb Physical Exam 2 Narrative: Generally: The patient is on oxygen. He appears to be slightly short of breath. The patient appears to be somewhat frail Lungs: Clear to auscultation Heart: Regular rate and rhythm Abdomen: Soft, nontender without masses. Patient is positive bowel sounds. I do not appreciate any hernias. I do not appreciate any hepatosplenomegaly. Extremities: There is no clubbing cyanosis or edema Neurologic: The patient is awake, alert, oriented x 3. The patient's [place] Coma Scale is 15. The patient moves all 4 extremities without difficulty. The patient sensations intact to light touch throughout. Urinary Catheter Management: Bledsoe: Cath Placed During This Visit: yes Reason for Continuing Indwelling Catheter: Other Urinary Catheter Date of Insertion: 04/28/23 Urinary Catheter Time of Insertion: 01:25 Data 04/28/23 13:42 04/28/23 04:31 Micro: Microbiology 04/28/23 03:19 Occult Blood (FIT) - Final Stool Routine Collection Attestation for Other Data: I personally reviewed and interpreted the following: (All the patient's labs associated with this admission.) A&P Assessment and plan (1) Anemia: This patient possibly has an upper GI bleed. Will schedule the patient for an EGD in the morning. The risk and benefits of this been explained to the patient patient seemed understand the risk and benefits would like to proceed. I explained to the patient that if he has something like gastric cancer, we of course with biopsy that. It is unclear exactly what we will find. I suspect the patient may have some sort of prepyloric or postpyloric ulcer with some type of possible gastric outlet obstruction. Coding Level of Care Code 84967 Diagnoses Anemia D64.9
[2023-04-28] MEDS: zolpidem 5 mg Tablet PO (21:08)
[2023-04-28 21:18] LABS: Glucose Point of Care 139 mg/dL (70-110)
[2023-04-29] VITALS (17 sets, daily range): BP systolic 116–157; BP diastolic 49–81; PULSE 64–78; RESP 13–18; TEMP 36.3–37.1; O2SAT 91–100
[2023-04-29] MEDS: oxyCODONE 5 mg IR Tab/Cap 10 MG PO ×5 (02:23→21:53)
[2023-04-29 03:40] LABS: Basophils % 0.4 %; Eosinophils # 0.2 10^3/uL (0.0-0.8); Eosinophils % 4.2 %; Hematocrit 35.5 % (37-53); Lymphocytes # 0.7 10^3/uL (0.8-4.8); Lymphocytes % 15.4 %; Mean Corpuscular HGB Conc 28.2 g/dL (30-55); Mean Corpuscular Hemoglobin 25.6 pg (27-33); Mean Corpuscular Volume 90.8 fl (82-101); Mean Platelet Volume 12.1 fL (7.4-10.4); Monocytes # 0.3 10^3/uL (0.2-0.9); Monocytes % 5.6 %; Neutrophils # 3.57 10^3/uL (1.8-7.7); Neutrophils % 74.2 %; Nucleated Red Blood Cells % 0 %; Platelet Count 85 10^3/cmm (157-399); Red Blood Count 3.91 10^6/uL (3.85-5.65); Red Cell Distribution Width 19.3 % (12.1-15.1); White Blood Count 4.81 10^3/uL (3.29-11.43)
[2023-04-29 04:29] LABS: NT Pro B Type Natriuretic Pept 30605 pg/mL (0-125)
[2023-04-29] MEDS: acetaminophen 500 mg Tablet PO (05:23)
[2023-04-29] MEDS: ondansetron 2 mg/ML SDV 2 mL 4 MG IVP (05:29)
[2023-04-29] MEDS: FUROsemide 20 mg Tablet PO (06:33)
[2023-04-29] MEDS: tamsulosin 0.4 mg Capsule PO (06:33)
[2023-04-29] MEDS: sucralfate 1 gm Tablet PO ×3 (06:33→21:14)
[2023-04-29 06:42] LABS: Glucose Point of Care 101 mg/dL (70-110)
--- NOTE | 2023-04-29 09:23 | P.ANESASSM_ITS ---
Pre-Anesthetic Assessment Height/Weight: Height 1.68 m Weight 90.038 kg Temp Pulse Resp BP Pulse Ox O2 Del Method O2 Flow Rate 98.8 F 64 18 137/53 97 Nasal Cannula 2 04/29/23 07:55 04/29/23 07:55 04/29/23 07:55 04/29/23 07:55 04/29/23 07:55 04/29/23 07:55 04/29/23 08:00 Preop Diagnosis: upper GI hemorrhage Operation Date: 04/29/23 09:30 Proposed Procedures p EGD(Not Applicable) - Rajiv Coulter MD Familial anesthetic complications: None Was Beta Caren taken within 24 hours: N/A Was Clonidine taken within 24 hours: N/A Last intake: Intake Last Liquid Date 04/28/23 Last Liquid Time 23:30 Last Solid Date 04/28/23 Last Solid Time 18:00 Social No alcohol and No tobacco Exam alert, oriented x 3, clear to auscultation bilaterally and regular rate & rhythm Airway Mallampati: Class I Dentition: other (no teeth) Pulmonary hx pleural effusion CV/HEM Congestive Heart Failure, Hypertension and Myocardial Infarction Mod-severe MVR on echo Hepatic denies any ascites, never had abdomen drained GI gi bleed Metabolic Diabetes Mellitus Musc/skel hx MDS and lymphoma Anesthetic Plan ASA status: 4 Anesthesia: MAC Risk of > 500 ml blood loss (7ml/kg in children): No Other Pertinent Information denies vomiting for over 48 hrs, denies nausea, states currently hungry, last ate at 2000 yesterday Medications/Allergies Home Medications Medication Instructions Recorded Confirmed Last Taken Type acetaminophen 650 mg 1,300 mg PO Q12H PRN Pain 08/13/19 04/28/23 Unknown History tablet,extended release (Tylenol Arthritis Pain) insulin lispro 100 unit/mL See Rx Instructions .Route .COMPLEX 07/02/20 04/28/23 03/08/22 History subcutaneous solution (Humalog U-100 Insulin) dimenhydrinate 50 mg tablet 50 mg PO Q8H PRN Dizziness 03/09/22 04/28/23 Unknown History (Dramamine) albuterol sulfate 90 mcg/actuation 2 puff inhalation Q6H PRN 03/21/22 04/28/23 Unknown Rx aerosol inhaler (ProAir HFA) shortness of breath or wheezing #8.5 grams Diabetic shoes #2 ea 10/24/22 04/28/23 Unknown Rx ondansetron 4 mg disintegrating 4 mg PO Q6H PRN nausea and 12/04/22 04/28/23 Unknown Rx tablet vomiting #90 tabs Compression stockings - 8-15mmHg #1 ea 12/26/22 04/28/23 Unknown Rx hydroxyzine HCl 10 mg tablet 10 mg PO QAM 02/10/23 04/28/23 02/10/23 History SEE PHARMACY COMMENT pantoprazole 40 mg tablet,delayed 40 mg PO QAM 02/10/23 04/28/23 02/10/23 History release tamsulosin 0.4 mg capsule 0.4 mg PO QAM 02/10/23 04/28/23 02/10/23 History lactulose 20 gram/30 mL oral 10 g (15 mL) PO TID #1,200 mL 02/16/23 04/28/23 Unknown Rx solution potassium chloride 10 mEq 10 meq PO DAILY #30 tabs 02/19/23 04/28/23 Unknown Rx tablet,extended release spironolactone 50 mg tablet 50 mg PO BID #60 tabs 02/19/23 04/28/23 Unknown Rx gabapentin 600 mg tablet See Rx Instructions .Route 02/23/23 04/28/23 Unknown Rx .COMPLEX #120 tabs oxycodone 10 mg tablet 10 mg PO Q4H PRN Pain 7 days #42 03/19/23 04/28/23 Unknown Rx tabs Hinged Knee Brace #1 ea 04/24/23 04/28/23 Unknown Rx furosemide 20 mg tablet 20 mg PO DAILY 04/28/23 04/28/23 Unknown History multivitamin with minerals 1 tab PO DAILY 04/28/23 04/28/23 Unknown History Allergies Allergy/AdvReac Type Severity Reaction Status Date / Time methadone Allergy Unknown Unknown Verified 04/28/23 08:51 carisoprodol [From Soma] Allergy Unknown Verified 04/28/23 08:51 codeine Allergy Unknown Verified 04/28/23 08:51 morphine Allergy Unknown Verified 04/28/23 08:51 Current Medications Generic Name Dose Route Start Last Admin Trade Name Freq PRN Reason Stop Dose Admin Acetaminophen 500 mg 04/28/23 00:08 04/29/23 05:23 Acetaminophen 500 Mg Tablet PO 500 mg Q4H PRN Administration fever Furosemide 20 mg 04/28/23 06:00 04/29/23 06:33 Furosemide 20 Mg Tablet PO 20 mg QAM SHIRA Administration Heparin Sodium (Porcine) 5,000 unit 04/28/23 09:00 04/28/23 09:24 Heparin 5,000 Unit/Ml Inj 1 Ml SUBCUT 5,000 unit Q12H SHIRA Administration Insulin Human Lispro 0 unit 04/28/23 08:00 04/29/23 07:33 Insulin Lispro 100 Unit/1 Ml SUBCUT Not Given TIDWM [facility] Protocol Lanolin 1 applic 04/28/23 06:38 04/28/23 09:19 Lanolin Oint 7 Gm TOPICAL 1 applic PRN PRN Administration DRYNESS Ondansetron HCl 4 mg 04/28/23 00:08 04/29/23 05:29 Ondansetron 2 Mg/Ml Sdv 2 Ml IVP 4 mg Q6H PRN Administration NAUSEA AND VOMITING Oxycodone HCl 10 mg 04/28/23 00:53 04/29/23 06:34 Oxycodone 5 Mg Ir Tab/Cap PO 10 mg Q4H PRN Administration PAIN Pantoprazole Sodium 40 mg 04/28/23 09:00 04/28/23 17:56 Pantoprazole 40 Mg Sdv IVP 40 mg BID SHIRA Administration Potassium Chloride 10 meq 04/28/23 09:00 04/28/23 09:20 Potassium Chloride Er 10 Meq Tablet PO 10 meq DAILY SHIRA Administration Spironolactone 50 mg 04/28/23 09:00 04/28/23 09:20 Spironolactone 25 Mg Tablet PO 50 mg DAILY SHIRA Administration Sucralfate 1 gm 04/28/23 07:00 04/29/23 06:33 Sucralfate 1 Gm Tablet PO 1 gm AC&BEDTIME SHIRA Administration Tamsulosin HCl 0.4 mg 04/28/23 06:00 04/29/23 06:33 Tamsulosin 0.4 Mg Capsule PO 0.4 mg QAM SHIRA Administration PFSH Anesthesia Medical History Cardiomyopathy Pleural effusion Rib fracture Altered mental status Hypernatremia CHENCHO (acute kidney injury) Gram-positive bacteremia Septic shock Sepsis CHF (congestive heart failure) NSTEMI (non-ST elevated myocardial infarction) Acute cystitis History of pericarditis Degenerative arthritis Degenerative joint disease of spine Obstructive sleep apnea Peripheral neuropathy GERD (gastroesophageal reflux disease) Iron overload 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) Myelodysplastic syndrome Initially diagnosed in July 2002 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 Essential hypertension Type 2 diabetes mellitus without complications Surgical History History of cholecystectomy S/P ORIF (open reduction internal fixation) fracture (2014) Status post creation of pericardial window (2008) History of tonsillectomy History of total right hip arthroplasty (2015) History of lumbar laminectomy Social History Smoking and tobacco/nicotine status: never used tobacco/nicotine Data Anesthesia 04/29/23 03:08 04/28/23 04:31 Short CBC 04/27/23 04/28/23 04/28/23 Range/Units 23:02 04:31 13:42 WBC 4.73 3.59 4.27 (3.29-11.43) 10^3/uL Hgb 10.40 L 9.20 L 10.20 L (11.27-16.99) g/dL Hct 35.4 L 31.6 L 35.0 L (37-53) % MCV 87.8 88.5 87.9 (82-101) fl Plt Count 96 L 77 L 88 L (157-399) 10^3/cmm Neut % (Auto) 61.4 58.2 66.7 % Neut # (Auto) 2.90 2.09 2.85 (1.8-7.7) 10^3/uL 04/29/23 Range/Units 03:08 WBC 4.81 (3.29-11.43) 10^3/uL Hgb 10.00 L (11.27-16.99) g/dL Hct 35.5 L (37-53) % MCV 90.8 (82-101) fl Plt Count 85 L (157-399) 10^3/cmm Neut % (Auto) 74.2 % Neut # (Auto) 3.57 (1.8-7.7) 10^3/uL BMP 04/27/23 04/28/23 23:02 04:31 Sodium 141 141 Potassium 4.4 4.1 Chloride 106 107 Carbon Dioxide 26 24 BUN 18 19 Creatinine 1.1 1.2 Glucose 95 90 Calcium 9.3 8.3 L Cardiac Enzymes 04/29/23 Range/Units 03:08 NT-Pro-B Natriuret Pep 51881 H (0-125) pg/mL Liver Function 04/27/23 04/28/23 Range/Units 23:02 04:31 Total Bilirubin 0.7 0.7 (0.15-1.2) mg/dL AST 22 19 (0-40) U/L ALT 11 8 (0-41) U/L Alkaline Phosphatase 266 H 219 H (40-130) U/L Albumin 3.6 2.8 L (3.5-5.2) g/dL Urine 04/28/23 Range/Units 01:29 Urine Color Dark yellow (Yellow) Urine Appearance Hazy A (CLEAR) Urine pH 5 (5-7) Ur Specific Daniels 1.025 (1.005-1.030) Urine Protein 2+ H (Negative) Urine Glucose (UA) Norm (Normal) Urine Ketones 1+ H (Negative) Urine Nitrate Negative (Negative) Urine Bilirubin 1+ H (Negative) Ur Leukocyte Esterase Negative (Negative) Urine RBC 0-4 H (0-2) /hpf Urine WBC 0-4 H (0-5) /hpf Coags 04/27/23 04/28/23 23:02 04:31 C-Reactive Protein 65.1 H 58.9 H ABG 04/27/23 23:25 Specimen Type Arterial Sample Site Brachial, right ABG pH 7.42 ABG pCO2 36.1 ABG pO2 68.8 L ABG PO2/FiO2 Ratio 0 ABG HCO3 23.3 ABG Base Excess -0.9 O2 Delivery Device Room air FiO2 21.0 Microbiology 04/28/23 03:19 Occult Blood (FIT) - Final Stool Routine Collection Cardiac Studies: 2 Echocardiogram 11/20/22
[2023-04-29] MEDS: sodium chloride 0.9% 1,000 ML 30 ML IV (09:30)
--- NOTE | 2023-04-29 10:01 | ANE.PACU2 ---
Inpatient post-anesthesia follow up: Airway intact: Yes Vital signs: Temperature 98.4 F Pulse Rate 65 Respiratory Rate 16 Blood Pressure 155/81 Pulse Oximetry 100 Oxygen Delivery Me thod Nasal Cannula Oxygen Flow Rate 2 Fraction of Inspir ed Oxygen Hydration adequate: Yes Nausea and vomiting: Yes Pain level: 1 Mental status: Baseline
--- NOTE | 2023-04-29 10:51 | P.PN_ITS ---
Subjective 2 Subjective: This patient was stable overnight. The patient underwent an EGD this morning. The patient was found to have a large amount of retained food products in his stomach. There were actually whole carrots, carrot slices in his stomach. I could not get into the duodenum because it was obstructed with food. Medications: Reviewed: Yes Vitals/I&O/Wt Last Vital Signs Temp 97.4 F L 04/29/23 10:10 Pulse 67 04/29/23 10:10 Resp 16 04/29/23 10:10 BP 143/69 04/29/23 10:10 Pulse Ox 99 04/29/23 10:10 O2 Del Method Room Air 04/29/23 10:10 O2 Flow Rate 7 04/29/23 10:05 04/28/23 04/29/23 04/29/23 22:59 06:59 14:59 Intake Total 240 / 1200 200 / 200 Output Total 600 / 600 650 / 1250 Balance -360 / 600 -650 / -50 200 / 200 Weight last 48 hrs Weight 198 lb 8 oz Weight 198 lb 2 oz Weight 190 lb Weight 180 lb Physical Exam 2 Narrative: Abdomen: Soft, nontender without masses. Urinary Catheter Management: Bledsoe: Cath Placed During This Visit: yes Reason for Continuing Indwelling Catheter: Other Urinary Catheter Date of Insertion: 04/28/23 Urinary Catheter Time of Insertion: 01:25 Data 04/29/23 03:08 04/28/23 04:31 A&P Assessment and plan (1) Anemia: This patient may have gastric atony. Will consider starting the patient on several days of erythromycin and then transition the patient over to Reglan. Reglan has had variable success in treating gastric atony/gastroparesis. I did take random biopsies of the stomach. I believe the patient probably needs a repeat EGD. Will consider doing an upper GI on this patient to help with a diagnosis of gastroparesis. This patient probably needs to be on a full liquid diet. Thank you so much for this consult. Will sign off at this time. Please reconsult for questions or concerns. Attestations 2 Medical Necessity Statement*: See hospitalist note Coding Level of Care Code Acute Code for Chg Fwd Diagnoses Anemia D64.9
[2023-04-29 11:05] LABS: Glucose Point of Care 111 mg/dL (70-110)
[2023-04-29 11:11] LABS: Basophils % 0.4 %; Eosinophils # 0.1 10^3/uL (0.0-0.8); Eosinophils % 1.7 %; Lymphocytes # 0.9 10^3/uL (0.8-4.8); Lymphocytes % 18.8 %; Mean Corpuscular HGB Conc 28.8 g/dL (30-55); Mean Corpuscular Hemoglobin 25.4 pg (27-33); Mean Corpuscular Volume 88.2 fl (82-101); Mean Platelet Volume 10.8 fL (7.4-10.4); Monocytes # 0.2 10^3/uL (0.2-0.9); Monocytes % 4.4 %; Neutrophils # 3.58 10^3/uL (1.8-7.7); Neutrophils % 74.5 %; Nucleated Red Blood Cells % 0 %; Platelet Count 82 10^3/cmm (157-399); Red Blood Count 3.74 10^6/uL (3.85-5.65)
[2023-04-29 11:22] LABS: INR 1.38 (0.8-1.2); Partial Thromboplastin Time 34.8 SECONDS (23.9-36.7)
[2023-04-29 11:28] LABS: Alanine Aminotransferase 8 U/L (0-41); Albumin Level 2.9 g/dL (3.5-5.2); Alkaline Phosphatase 201 U/L (40-130); Anion Gap 11.4 (5-19); Aspartate Amino Transferase 15 U/L (0-40); Blood Urea Nitrogen 14 mg/dL (8-23); Calcium 8.4 mg/dL (8.5-10.5); Carbon Dioxide 27 mmol/L (22-29); Chloride 108 mmol/L (98-107); Globulin 3.9 g/dL (1.3-4.6); Glucose 98 mg/dL (65-115); Osmolality Calculated 294 mOsm/kg (285-295); Potassium 4.4 mmol/L (3.5-5.1); Sodium 142 mmol/L (136-145); Total Bilirubin 0.4 mg/dL (0.15-1.2); Total Protein 6.8 g/dL (6.6-8.7)
--- NOTE | 2023-04-29 14:38 | P.PN_ITS ---
Subjective 2 Subjective: patient back from EGD eating regular diet note reviewed from gen surgery, switch him to liquid diet patient not sure if he needs repeat egd hb stable has been started on erythromycin by halie Vitals/I&O/Wt Last Vital Signs Temp 97.4 F L 04/29/23 10:10 Pulse 67 04/29/23 10:10 Resp 16 04/29/23 12:57 BP 143/69 04/29/23 10:10 Pulse Ox 99 04/29/23 10:10 O2 Del Method Room Air 04/29/23 10:10 O2 Flow Rate 7 04/29/23 10:05 04/28/23 04/29/23 04/29/23 22:59 06:59 14:59 Intake Total 240 / 1200 440 / 440 Output Total 600 / 600 650 / 1250 Balance -360 / 600 -650 / -50 440 / 440 Weight last 48 hrs Weight 90.038 kg Weight 89.868 kg Weight 86.183 kg Weight 81.647 kg Physical Exam 2 Narrative: Patient is awake and alert Euvolemic GCS of Currently on room air Nonfocal neuroexam Abdomen soft Pleasant and cooperative S1, S2 Abdomen soft seein eating in his room Urinary Catheter Management: Bledsoe: Cath Placed During This Visit: yes Reason for Continuing Indwelling Catheter: Other Urinary Catheter Date of Insertion: 04/28/23 Urinary Catheter Time of Insertion: 01:25 Data 04/29/23 11:02 04/29/23 11:02 A&P Assessment and plan (1) Cardiomyopathy: (2) Moderate mitral regurgitation: (3) Type 2 diabetes, controlled, with neuropathy: (4) Type 2 diabetes mellitus with foot ulcer: (5) Iron overload: (6) Acute on chronic anemia: (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 Will remove and do voiding trial Obtain UA not indicative of infection CT head negative Low extremity ulcer recently got discharged from wound care and home health services Daily dressing change Will apply topical antibiotics and use sterile dry dressing daily basis Acute on chronic hypoxia - improved, back to baseline Systolic CHF without significant exacerbation Severe Mitral regurgitation Hypoxia evident on ABG Patient uses 2 L of oxygen intermittently at home CT chest/abd showing b/l mod to large pleural effusions Previous thoracentesis did not reveal malignant effusion BMP 30,000 but pt euvolemic. Continue on lasix daily Cyclic vomiting Black tarry stools - resolved Gastroparesis? Upper GI bleed? did have melena at admission but that has resolved at this point. Continue protonix 40 bid Family history of stomach cancer patient has been experiencing recurrent nausea vomiting Check A1c level - 4.7 Will need gastric empyting study start on erythomycin 250 tid and add reglan [address] on full liquid diet Gen surgery consult appreciated. Repeat EGD required Cardiac/consistent carb diet, sliding scale Full code DVT prophylaxis on board Review of records: Significant past medical history, MDS, pleural effusion pathology showed malignancy earlier this year back pain There is moderate degenerative disease in the lumbar spine. There are chronic compression fractures at L2 and L3. There is bilateral L2 through L4 osseous facet fusion. Findings are stable since 07/14/2022. The right hip prosthesis is intact and well aligned. The left hip is unremarkable. The bony pelvis is intact. There is severe spinal stenosis at L4-L5. Th Hepatosplenomegaly, Fatty infiltration of liver Requested ammonia level- 14 History of anasarca third spacing with recurrent ascites Attestations 2 Medical Necessity Statement*: will need gastric emtpying study PTD and continue to monitor HB Diagnoses Cardiomyopathy I42.9 Moderate mitral regurgitation I34.0 Type 2 diabetes, controlled, with neuropathy E11.40 Type 2 diabetes mellitus with foot ulcer E11.621; L97.509 Iron overload E83.19 Acute on chronic anemia D64.9 History of allogeneic bone marrow transplant Z94.81 Hodgkin lymphoma of intrathoracic lymph nodes C81.92 Myelodysplastic syndrome D46.9 Ulcer of left lower leg L97.929 Non-healing ulcer of multiple sites of lower extremity, limited to breakdown of skin L97.901 Peripheral edema R60.9 Malaise and fatigue R53.81; R53.83
[2023-04-29] MEDS: potassium chloride ER 10 mEq Tablet PO (14:40)
[2023-04-29] MEDS: spironolactone 25 mg Tablet 50 MG PO (14:40)
[2023-04-29 16:45] LABS: Glucose Point of Care 186 mg/dL (70-110)
[2023-04-29] MEDS: insulin lispro 100 unit/1 mL SUBCUT (17:38)
[2023-04-29] MEDS: metoclopramide 10 mg Tablet 5 MG PO ×2 (17:39→21:14)
[2023-04-29] MEDS: pantoprazole 40 mg SDV IVP (18:05)
[2023-04-29 20:40] LABS: Glucose Point of Care 141 mg/dL (70-110)
[2023-04-29] MEDS: heparin 5,000 unit/mL INJ 1 mL 5000 UNIT SUBCUT (21:15)
[2023-04-29] MEDS: zolpidem 5 mg Tablet PO (22:08)
[2023-04-30] VITALS (10 sets, daily range): BP systolic 108–132; BP diastolic 58–70; PULSE 66–92; RESP 15–19; TEMP 36.3–38.4; O2SAT 90–97
[2023-04-30 00:57] LABS: Basophils % 0.4 %; Eosinophils # 0.1 10^3/uL (0.0-0.8); Eosinophils % 1.8 %; Hematocrit 34.9 % (37-53); Lymphocytes # 1.4 10^3/uL (0.8-4.8); Lymphocytes % 19.6 %; Mean Corpuscular HGB Conc 28.9 g/dL (30-55); Mean Corpuscular Hemoglobin 25.6 pg (27-33); Mean Corpuscular Volume 88.6 fl (82-101); Monocytes # 0.4 10^3/uL (0.2-0.9); Monocytes % 5.5 %; Neutrophils # 5.08 10^3/uL (1.8-7.7); Neutrophils % 72.4 %; Nucleated Red Blood Cells % 0 %; Platelet Count 93 10^3/cmm (157-399); Red Blood Count 3.94 10^6/uL (3.85-5.65); Red Cell Distribution Width 18.6 % (12.1-15.1); White Blood Count 7.03 10^3/uL (3.29-11.43)
[2023-04-30] MEDS: oxyCODONE 5 mg IR Tab/Cap 10 MG PO ×4 (01:54→17:47)
[2023-04-30] MEDS: acetaminophen 500 mg Tablet PO ×2 (04:11→14:57)
[2023-04-30 04:16] LABS: Anion Gap 9.6 (5-19); Blood Urea Nitrogen 20 mg/dL (8-23); Calcium 8.2 mg/dL (8.5-10.5); Carbon Dioxide 27 mmol/L (22-29); Chloride 106 mmol/L (98-107); Glucose 86 mg/dL (65-115); Magnesium 1.7 mg/dL (1.7-2.3); Osmolality Calculated 288 mOsm/kg (285-295); Potassium 4.6 mmol/L (3.5-5.1); Sodium 138 mmol/L (136-145)
[2023-04-30] MEDS: FUROsemide 20 mg Tablet PO (06:05)
[2023-04-30] MEDS: sucralfate 1 gm Tablet PO ×4 (06:05→20:27)
[2023-04-30] MEDS: metoclopramide 10 mg Tablet 5 MG PO ×4 (06:05→20:27)
[2023-04-30] MEDS: ondansetron 2 mg/ML SDV 2 mL 4 MG IVP ×2 (06:06→11:57)
[2023-04-30] MEDS: tamsulosin 0.4 mg Capsule PO (06:06)
[2023-04-30 06:41] LABS: Glucose Point of Care 103 mg/dL (70-110)
[2023-04-30] MEDS: spironolactone 25 mg Tablet 50 MG PO (08:41)
[2023-04-30] MEDS: pantoprazole 40 mg SDV IVP ×2 (08:41→17:46)
[2023-04-30] MEDS: heparin 5,000 unit/mL INJ 1 mL 5000 UNIT SUBCUT (08:41)
[2023-04-30] MEDS: potassium chloride ER 10 mEq Tablet PO (08:42)
--- NOTE | 2023-04-30 09:13 | PM.PN ---
Subjective Subjective: No specific complaints this morning. The patient seems to not have remembered our conversation from yesterday. I explained to him that he has got gastroparesis. I explained to him that his stomach does not work. The stomach is not emptying. And that is probably why has been having this abdominal pain along with the vomiting that he has after eating. There is a possibility that the patient may have a duodenal mass which is obstructing but I think that this is less likely. I explained to the patient that we placed him on some medication to help him with gastric emptying. Medications: Reviewed: Yes Vitals/I&O/Wt Last Vital Signs Temp 98.1 F 04/30/23 07:06 Pulse 78 04/30/23 08:00 Resp 16 04/30/23 08:00 BP 108/61 04/30/23 07:06 Pulse Ox 91 04/30/23 08:00 O2 Del Method Room Air 04/30/23 08:00 O2 Flow Rate 2 04/29/23 21:45 04/29/23 04/30/23 04/30/23 22:59 06:59 14:59 Intake Total 360 / 800 360 / 1160 480 / 480 Output Total 400 / 400 280 / 680 Balance -40 / 400 80 / 480 480 / 480 Weight last 48 hrs Weight 198 lb 8 oz Weight 198 lb 8 oz Physical Exam Narrative: Abdomen: Soft, nontender without masses. Patient has positive bowel sounds. Urinary Catheter Management: Bledsoe: Cath Placed During This Visit: yes Reason for Continuing Indwelling Catheter: Acute Urinary Retention or Obstruction Urinary Catheter Date of Insertion: 04/28/23 Urinary Catheter Time of Insertion: 01:25 Data 04/30/23 00:49 04/30/23 03:02 Micro: Microbiology 04/27/23 23:36 Blood Culture - Preliminary Blood 04/27/23 23:30 Blood Culture - Preliminary Blood A&P Assessment and plan (1) Gastroparesis: Erythromycin and Reglan. The patient will need a follow-up EGD in 6 to 8 weeks. The patient probably needs to be followed by supervisor accounting clerks. The patient's glucose needs to be under control. The patient's hemoglobin A1c needs to be well-controlled also. Attestations Medical Necessity Statement*: See hospitalist note Coding Level of Care Code Acute Code for Chg Fwd Diagnoses Gastroparesis K31.84
[2023-04-30 11:36] LABS: Glucose Point of Care 168 mg/dL (70-110)
[2023-04-30] MEDS: insulin lispro 100 unit/1 mL SUBCUT (11:50)
--- NOTE | 2023-04-30 13:30 | P.PN_ITS ---
Subjective 2 Subjective: seen this am sitting up in bed says he feels well grandson at bedside would like to know about his egd. i went over his egd results and explained his plan Vitals/I&O/Wt Last Vital Signs Temp 98.2 F 04/30/23 12:05 Pulse 85 04/30/23 12:05 Resp 18 04/30/23 12:05 BP 132/60 04/30/23 12:05 Pulse Ox 90 04/30/23 12:05 O2 Del Method Nasal Cannula 04/30/23 12:05 O2 Flow Rate 2 04/30/23 08:00 04/29/23 04/30/23 04/30/23 22:59 06:59 14:59 Intake Total 360 / 800 360 / 1160 960 / 960 Output Total 400 / 400 280 / 680 Balance -40 / 400 80 / 480 960 / 960 Weight last 48 hrs Weight 90.038 kg Weight 90.038 kg Physical Exam 2 Narrative: Patient is awake and alert Euvolemic GCS of Currently on room air Nonfocal neuroexam Abdomen soft Pleasant and cooperative S1, S2 Abdomen soft seein eating in his room Urinary Catheter Management: Bledsoe: Cath Placed During This Visit: yes Reason for Continuing Indwelling Catheter: Acute Urinary Retention or Obstruction Urinary Catheter Date of Insertion: 04/28/23 Urinary Catheter Time of Insertion: 01:25 Data 04/30/23 00:49 04/30/23 03:02 Micro: Microbiology 04/27/23 23:36 Blood Culture - Preliminary Blood 04/27/23 23:30 Blood Culture - Preliminary Blood A&P Assessment and plan (1) Cardiomyopathy: (2) Moderate mitral regurgitation: (3) Type 2 diabetes, controlled, with neuropathy: (4) Type 2 diabetes mellitus with foot ulcer: (5) Iron overload: (6) Acute on chronic anemia: (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 Will remove and do voiding trial Obtain UA not indicative of infection CT head negative Low extremity ulcer recently got discharged from wound care and home health services Daily dressing change Will apply topical antibiotics and use sterile dry dressing daily basis Acute on chronic hypoxia - improved, back to baseline Systolic CHF without significant exacerbation Severe Mitral regurgitation Hypoxia evident on ABG Patient uses 2 L of oxygen intermittently at home CT chest/abd showing b/l mod to large pleural effusions Previous thoracentesis did not reveal malignant effusion BMP 30,000 but pt euvolemic. Continue on lasix daily Cyclic vomiting Black tarry stools - resolved Gastroparesis? Upper GI bleed? did have melena at admission but that has resolved at this point. Continue protonix 40 bid Family history of stomach cancer patient has been experiencing recurrent nausea vomiting Check A1c level - 4.7 Will need gastric empyting study start on erythomycin 250 tid and add reglan [address] on full liquid diet Gen surgery consult appreciated. Repeat EGD required pt will need gastric emptying study at a later time Cardiac/consistent carb diet, sliding scale Full code DVT prophylaxis on board Review of records: Significant past medical history, MDS, pleural effusion pathology showed malignancy earlier this year back pain There is moderate degenerative disease in the lumbar spine. There are chronic compression fractures at L2 and L3. There is bilateral L2 through L4 osseous facet fusion. Findings are stable since 07/14/2022. The right hip prosthesis is intact and well aligned. The left hip is unremarkable. The bony pelvis is intact. There is severe spinal stenosis at L4-L5. Th Hepatosplenomegaly, Fatty infiltration of liver Requested ammonia level- 14 History of anasarca third spacing with recurrent ascites Attestations 2 Medical Necessity Statement*: will need gastric emtpying study PTD and continue to monitor HB Diagnoses Cardiomyopathy I42.9 Moderate mitral regurgitation I34.0 Type 2 diabetes, controlled, with neuropathy E11.40 Type 2 diabetes mellitus with foot ulcer E11.621; L97.509 Iron overload E83.19 Acute on chronic anemia D64.9 History of allogeneic bone marrow transplant Z94.81 Hodgkin lymphoma of intrathoracic lymph nodes C81.92 Myelodysplastic syndrome D46.9 Ulcer of left lower leg L97.929 Non-healing ulcer of multiple sites of lower extremity, limited to breakdown of skin L97.901 Peripheral edema R60.9 Malaise and fatigue R53.81; R53.83
[2023-04-30 13:33] LABS: Basophils % 0.5 %; Hematocrit 34.9 % (37-53); Lymphocytes # 0.9 10^3/uL (0.8-4.8); Lymphocytes % 22.4 %; Mean Corpuscular HGB Conc 28.7 g/dL (30-55); Mean Corpuscular Volume 90.6 fl (82-101); Mean Platelet Volume 12.3 fL (7.4-10.4); Monocytes # 0.3 10^3/uL (0.2-0.9); Monocytes % 7.7 %; Neutrophils # 2.83 10^3/uL (1.8-7.7); Neutrophils % 68.2 %; Nucleated Red Blood Cells % 0 %; Platelet Count 66 10^3/cmm (157-399); Red Blood Count 3.85 10^6/uL (3.85-5.65); Red Cell Distribution Width 18.8 % (12.1-15.1); White Blood Count 4.15 10^3/uL (3.29-11.43)
[2023-04-30 17:19] LABS: Glucose Point of Care 118 mg/dL (70-110)
[2023-04-30] MEDS: trazodone 50 mg Tablet PO (20:27)
[2023-04-30 20:47] LABS: Glucose Point of Care 114 mg/dL (70-110)
[2023-05-01] VITALS (10 sets, daily range): BP systolic 129–163; BP diastolic 61–84; PULSE 51–88; RESP 16–19; TEMP 36.4–37; O2SAT 91–100
[2023-05-01] MEDS: oxyCODONE 5 mg IR Tab/Cap 10 MG PO ×5 (00:07→23:27)
[2023-05-01 00:52] LABS: Basophils % 0.8 %; Eosinophils # 0.1 10^3/uL (0.0-0.8); Eosinophils % 1.2 %; Hematocrit 32.3 % (37-53); Lymphocytes % 20.5 %; Mean Corpuscular HGB Conc 29.1 g/dL (30-55); Mean Corpuscular Hemoglobin 25.8 pg (27-33); Mean Corpuscular Volume 88.7 fl (82-101); Mean Platelet Volume 12.7 fL (7.4-10.4); Monocytes # 0.4 10^3/uL (0.2-0.9); Monocytes % 8.2 %; Neutrophils # 3.36 10^3/uL (1.8-7.7); Neutrophils % 69.1 %; Nucleated Red Blood Cells % 0 %; Platelet Count 63 10^3/cmm (157-399); Red Blood Count 3.64 10^6/uL (3.85-5.65); Red Cell Distribution Width 18.5 % (12.1-15.1); White Blood Count 4.87 10^3/uL (3.29-11.43)
[2023-05-01] MEDS: metoclopramide 10 mg Tablet 5 MG PO ×4 (06:04→20:13)
[2023-05-01] MEDS: sucralfate 1 gm Tablet PO ×4 (06:04→20:13)
[2023-05-01] MEDS: acetaminophen 500 mg Tablet PO (06:04)
[2023-05-01] MEDS: tamsulosin 0.4 mg Capsule PO (06:04)
[2023-05-01] MEDS: FUROsemide 20 mg Tablet PO (06:04)
[2023-05-01 06:06] LABS: Basophils % 0.7 %; Eosinophils % 0.7 %; Hematocrit 34.8 % (37-53); Lymphocytes % 18.1 %; Mean Corpuscular HGB Conc 27.9 g/dL (30-55); Mean Corpuscular Hemoglobin 25.3 pg (27-33); Mean Corpuscular Volume 90.6 fl (82-101); Mean Platelet Volume 12.5 fL (7.4-10.4); Monocytes # 0.5 10^3/uL (0.2-0.9); Monocytes % 8.8 %; Neutrophils # 4.07 10^3/uL (1.8-7.7); Neutrophils % 71.3 %; Nucleated Red Blood Cells % 0 %; Platelet Count 81 10^3/cmm (157-399); Red Blood Count 3.84 10^6/uL (3.85-5.65); Red Cell Distribution Width 18.4 % (12.1-15.1)
[2023-05-01 06:27] LABS: Anion Gap 13.1 (5-19); Blood Urea Nitrogen 25 mg/dL (8-23); Calcium 8.5 mg/dL (8.5-10.5); Carbon Dioxide 26 mmol/L (22-29); Chloride 103 mmol/L (98-107); Creatinine Clr Calc Pharmacy 66.0529; Glucose 103 mg/dL (65-115); Magnesium 1.9 mg/dL (1.7-2.3); Osmolality Calculated 289 mOsm/kg (285-295); Phosphorus 2.8 mg/dL (2.5-4.5); Potassium 5.1 mmol/L (3.5-5.1); Sodium 137 mmol/L (136-145)
[2023-05-01 06:39] LABS: Glucose Point of Care 111 mg/dL (70-110)
--- NOTE | 2023-05-01 08:52 | PC.CHAP ---
Pastoral Care Encounter/Spiritual Assessment Type of Contact [] Declined rv repairer visit [] Patient/Family/Request visit [] Outpatient visit [] Follow-up visit [] Physician referral [] Code/Alert [x] Routine visit [] Staff referral [] Actively dying [] Patient sleeping [x] Family support [] [] Out of room [] Palliative care [] [] Receiving care in room [] Pre-surgical visit [] Trauma [] Long length of stay [] ICU visit [] Other: Relational/Emotional Strength [x] Patient feels connected with others/family/visitors/staff [] Distress [] Loneliness/isolation [] Abandonment Spirituality of Patient [x] Person of [place] [] Attends Scientology of their [place] [x] Believes in Prayer [] Reads Bible or Voodoo materials [] There are Spiritual issues to be addressed Collar Worker Interventions [x] Prayer [x] Active listening [] Non-anxious presence [x] Spiritual/emotional support [] Crisis/trauma care [] Spiritual counseling [] Bereavement support [] Provided bereavement packet [] Provided Bible/devotional materials [] Provided toy/stuffed animal, coloring book to patient or family member [] Provided Communion [] Anointing/[place] [] Salvation [x] Completed spiritual assessment [] Other: Impact on Illness or Injury [] Angry [] Fearful [] Anxious [] Often cries [] Exhaustion [] Unable to work [] Unable to attend anabaptism [] Unable to walk/stand [] Unable to read [] Unable to drive [] Unable to eat/drink [] Unable to sleep [] Unable to be with family [] Patient intubated [] Other: Summary Time spent with patient 5 min
[2023-05-01] MEDS: pantoprazole 40 mg SDV IVP ×2 (10:23→18:46)
[2023-05-01] MEDS: spironolactone 25 mg Tablet 50 MG PO (10:23)
[2023-05-01] MEDS: potassium chloride ER 10 mEq Tablet PO (10:23)
[2023-05-01 11:21] LABS: Glucose Point of Care 218 mg/dL (70-110)
[2023-05-01] MEDS: insulin lispro 100 unit/1 mL SUBCUT (12:10)
--- NOTE | 2023-05-01 12:21 | PM.PN ---
Subjective Subjective: Patient is sitting at the bedside Swelling to the right, as per the this is normally how he is at home as well Awaiting placement Currently on 1.5 L No active vomiting Vitals/I&O/Wt Last Vital Signs Temp 97.9 F 05/01/23 07:31 Pulse 73 05/01/23 07:58 Resp 18 05/01/23 07:58 BP 130/61 05/01/23 07:31 Pulse Ox 99 05/01/23 07:58 O2 Del Method Nasal Cannula 05/01/23 07:58 O2 Flow Rate 2 05/01/23 07:58 04/30/23 05/01/23 05/01/23 22:59 06:59 14:59 Intake Total 960 / 1920 720 / 720 Output Total 800 / 800 300 / 1100 Balance 160 / 1120 -300 / 820 720 / 720 Weight last 48 hrs Weight 76.612 kg Weight 90.038 kg Physical Exam Narrative: Awake and alert Mild signs of fluid overload GCS 15 Currently on 1.5 L Swelling to his right Nonfocal neuroexam at the bedside Urinary Catheter Management: Bledsoe: Cath Placed During This Visit: yes Reason for Continuing Indwelling Catheter: Other Urinary Catheter Date of Insertion: 04/28/23 Urinary Catheter Time of Insertion: 01:25 Data 05/01/23 04:56 05/01/23 04:56 A&P Assessment and plan (1) Essential hypertension: (2) CHF (congestive heart failure): Qualifiers: Heart failure chronicity: acute on chronic Heart failure type: unspecified Qualified Code(s): I50.9 - Heart failure, unspecified (3) Cardiomyopathy: (4) Systolic CHF, acute: (5) Moderate mitral regurgitation: (6) Gastroparesis: (7) Iron overload: (8) Anemia: (9) Hodgkin lymphoma of intrathoracic lymph nodes: (10) History of allogeneic bone marrow transplant: (11) Myelodysplastic syndrome: (12) Sepsis: (13) Non-healing ulcer of multiple sites of lower extremity, limited to breakdown of skin: (14) Acute alteration in mental status: (15) Peripheral edema: Plan Sepsis: Resolved Continue to biotics Awaiting placement Recurrent vomiting related to gastroparesis Patient has a gastroenterology appointment in May at [facility] Full code Currently 1.5 L Needing custodial placement Attestations Medical Necessity Statement*: Awaiting placement Diagnoses Essential hypertension I10 CHF (congestive heart failure) I50.9 Heart failure chronicity: acute on chronic Heart failure type: unspecified Cardiomyopathy I42.9 Systolic CHF, acute I50.21 Moderate mitral regurgitation I34.0 Gastroparesis K31.84 Iron overload E83.19 Anemia D64.9 Hodgkin lymphoma of intrathoracic lymph nodes C81.92 History of allogeneic bone marrow transplant Z94.81 Myelodysplastic syndrome D46.9 Sepsis A41.9 Non-healing ulcer of multiple sites of lower extremity, limited to breakdown of skin L97.901 Acute alteration in mental status R41.82 Peripheral edema R60.9
[2023-05-01] MEDS: ondansetron 2 mg/ML SDV 2 mL 4 MG IVP (15:15)
[2023-05-01 17:07] LABS: Glucose Point of Care 56 mg/dL (70-110)
[2023-05-01 17:41] LABS: Glucose Point of Care 67 mg/dL (70-110)
[2023-05-01 18:13] LABS: Glucose Point of Care 115 mg/dL (70-110)
[2023-05-01] MEDS: trazodone 50 mg Tablet PO (20:14)
--- NOTE | 2023-05-01 20:21 | PC.NURSE ---
Administered trazodone instead of ambien.
[2023-05-01 20:42] LABS: Glucose Point of Care 110 mg/dL (70-110)
[2023-05-02] VITALS (10 sets, daily range): BP systolic 121–141; BP diastolic 52–69; PULSE 64–89; RESP 16–20; TEMP 36.5–36.8; O2SAT 90–99
[2023-05-02] MEDS: oxyCODONE 5 mg IR Tab/Cap 10 MG PO ×2 (04:36→15:19)
[2023-05-02] MEDS: ondansetron 2 mg/ML SDV 2 mL 4 MG IVP (04:37)
[2023-05-02 06:37] LABS: Glucose Point of Care 128 mg/dL (70-110)
[2023-05-02] MEDS: spironolactone 25 mg Tablet 50 MG PO (10:16)
[2023-05-02] MEDS: potassium chloride ER 10 mEq Tablet PO (10:16)
[2023-05-02] MEDS: pantoprazole 40 mg SDV IVP ×2 (10:46→18:39)
[2023-05-02 10:56] LABS: Glucose Point of Care 152 mg/dL (70-110)
--- NOTE | 2023-05-02 11:53 | P.PN_ITS ---
Subjective 2 Subjective: This morning patient is stating that he still needs to sleep he did not do well with even Ambien last night He does not feel well rested He does not like the recliner because that does not improve his back pain Vitals/I&O/Wt Last Vital Signs Temp 98.3 F 05/02/23 04:00 Pulse 64 05/02/23 10:53 Resp 16 05/02/23 10:53 BP 137/52 05/02/23 08:00 Pulse Ox 99 05/02/23 10:53 O2 Del Method Nasal Cannula 05/02/23 10:53 O2 Flow Rate 2 05/02/23 10:53 05/01/23 05/02/23 05/02/23 22:59 06:59 14:59 Intake Total 720 / 2120 240 / 240 Output Total 400 / 400 200 / 600 Balance 320 / 1720 -200 / 1520 240 / 240 Weight last 48 hrs Weight 89.993 kg Weight 76.612 kg Physical Exam 2 Narrative: Patient is sitting at the bedside No active signs of focal deficit Currently on 2 L Patient was not wearing oxygen when I entered the room Lower extremity venous stasis dermatitis Currently has dressing on his extremities S1, S2 Pleasant and cooperative Nonfocal neuroexam Abdomen soft Complaining of back pain Urinary Catheter Management: Bledsoe: Cath Placed During This Visit: yes Reason for Continuing Indwelling Catheter: Other Urinary Catheter Date of Insertion: 04/28/23 Urinary Catheter Time of Insertion: 01:25 Data 05/01/23 04:56 05/01/23 04:56 A&P Assessment and plan (1) CHF (congestive heart failure): Qualifiers: Heart failure chronicity: acute on chronic Heart failure type: u nspecified Qualified Code(s): I50.9 - Heart failure, unspecified (2) Cardiomyopathy: (3) Type 2 diabetes mellitus with foot ulcer: (4) Moderate mitral regurgitation: (5) Systolic CHF, acute: (6) Gastroparesis: (7) Iron overload: (8) Acute on chronic anemia: (9) Myelodysplastic syndrome: (10) Hodgkin lymphoma of intrathoracic lymph nodes: (11) History of allogeneic bone marrow transplant: (12) Ulcer of left lower leg: (13) Peripheral edema: Plan Metabolic encephalopathy: Resolved Signs of UTI improved as well Right lung pneumonia: Patient finished antibiotic course during hospitalization Afebrile No leukocytosis Black tarry stools with recurrent vomiting Gastroparesis, EGD unremarkable Patient has gastroenterology appointment at [facility] at the end of May 2023 Appreciate general surgery recommendations Patient will also need gastric emptying study Lower extremity ulcer, patient has been getting daily dressing change with topical antibiotics Recently got discharged from wound care and home health services Cardiac consistent carb diet with sliding scale Full code DVT prophylaxis on board Patient has several spinal stenosis and chronic back pain He does have anasarca which seems to be getting slightly better Malignant pleural effusion follows up with Dr. Bal, [place], Patient sways towards his right side which is chronic no active focal deficits He does need a knee brace as well Attestations 2 Medical Necessity Statement*: Continue medical management Diagnoses CHF (congestive heart failure) I50.9 Heart failure chronicity: acute on chronic Heart failure type: unspecified Cardiomyopathy I42.9 Type 2 diabetes mellitus with foot ulcer E11.621; L97.509 Moderate mitral regurgitation I34.0 Systolic CHF, acute I50.21 Gastroparesis K31.84 Iron overload E83.19 Acute on chronic anemia D64.9 Myelodysplastic syndrome D46.9 Hodgkin lymphoma of intrathoracic lymph nodes C81.92 History of allogeneic bone marrow transplant Z94.81 Ulcer of left lower leg L97.929 Peripheral edema R60.9
[2023-05-02] MEDS: metoclopramide 10 mg Tablet 5 MG PO ×3 (14:43→21:08)
[2023-05-02] MEDS: sucralfate 1 gm Tablet PO ×3 (14:43→21:09)
[2023-05-02] MEDS: enoxaparin 40 mg/0.4 mL Syringe SUBCUT (14:43)
[2023-05-02 17:19] LABS: Glucose Point of Care 209 mg/dL (70-110)
[2023-05-02] MEDS: doxycycline 100 mg Tablet PO (18:25)
[2023-05-02] MEDS: insulin lispro 100 unit/1 mL SUBCUT (18:25)
[2023-05-02] MEDS: trazodone 50 mg Tablet PO (21:09)
[2023-05-02 21:43] LABS: Glucose Point of Care 64 mg/dL (70-110)
[2023-05-02] MEDS: dextrose 50% syringe 50 mL 25 ML IVP (21:54)
[2023-05-02 22:57] LABS: Glucose Point of Care 91 mg/dL (70-110)
[2023-05-03] VITALS: BP 145/68; PULSE 73; RESP 17; TEMP 36.4; O2SAT 94
[2023-05-03 03:59] VITALS: BP 134/69; PULSE 71; RESP 16; TEMP 36.6; O2SAT 98
[2023-05-03] MEDS: sucralfate 1 gm Tablet PO ×2 (06:05→11:23)
[2023-05-03] MEDS: FUROsemide 20 mg Tablet PO (06:05)
[2023-05-03] MEDS: metoclopramide 10 mg Tablet 5 MG PO ×2 (06:05→11:23)
[2023-05-03] MEDS: tamsulosin 0.4 mg Capsule PO (06:05)
[2023-05-03 06:35] LABS: Basophils % 0.2 %; Eosinophils % 0.2 %; Hematocrit 35.1 % (37-53); Lymphocytes # 0.5 10^3/uL (0.8-4.8); Lymphocytes % 12.7 %; Mean Corpuscular HGB Conc 28.8 g/dL (30-55); Mean Corpuscular Hemoglobin 25.4 pg (27-33); Mean Corpuscular Volume 88.4 fl (82-101); Mean Platelet Volume 12.5 fL (7.4-10.4); Monocytes # 0.4 10^3/uL (0.2-0.9); Monocytes % 10.7 %; Neutrophils # 3.04 10^3/uL (1.8-7.7); Neutrophils % 75.5 %; Nucleated Red Blood Cells % 0 %; Platelet Count 82 10^3/cmm (157-399); Red Blood Count 3.97 10^6/uL (3.85-5.65); Red Cell Distribution Width 17.9 % (12.1-15.1); White Blood Count 4.03 10^3/uL (3.29-11.43)
[2023-05-03 06:52] LABS: Anion Gap 16.7 (5-19); Blood Urea Nitrogen 42 mg/dL (8-23); Calcium 8.9 mg/dL (8.5-10.5); Carbon Dioxide 25 mmol/L (22-29); Chloride 99 mmol/L (98-107); Creatinine Clr Calc Pharmacy 53.9412; Glucose 100 mg/dL (65-115); Osmolality Calculated 291 mOsm/kg (285-295); Potassium 5.7 mmol/L (3.5-5.1); Sodium 135 mmol/L (136-145)
[2023-05-03 07:52] LABS: Glucose Point of Care 105 mg/dL (70-110)
[2023-05-03 08:00] VITALS: BP 132/64; PULSE 68; PULSE 71; RESP 17; RESP 18; TEMP 36.6; O2SAT 98
[2023-05-03 08:47] VITALS: RESP 16
[2023-05-03] MEDS: doxycycline 100 mg Tablet PO (08:47)
[2023-05-03] MEDS: oxyCODONE 5 mg IR Tab/Cap 10 MG PO (08:47)
[2023-05-03] MEDS: pantoprazole 40 mg SDV IVP (09:52)
[2023-05-03 10:57] LABS: Glucose Point of Care 110 mg/dL (70-110)
[2023-05-03 12:00] VITALS: BP 130/67; PULSE 70; RESP 17; TEMP 36.3; O2SAT 96
--- NOTE | 2023-05-03 13:27 | PC.NURSE ---
Patient family came to bedside demanding that the nursing staff get the patient in his own clothes so that he could be discharged. This nurse told the family that the patient was not discharging today. The family stated We are signing him out ama and taking him to [facility] where there are real doctors. This nurse along with the charge nurse organized the paperwork and had the patients DPOA sign him out ama. Dr. Rodriguez notified.
[2023-05-03 13:32] VITALS: BP 130/67; PULSE 70; RESP 17; TEMP 36.3; O2SAT 96
--- NOTE | 2023-05-03 14:08 | P.DS_ITS ---
Discharge Providers Date of Admission: 04/28/23 00:25 Date of Discharge: May 03, 2023 Attending Provider at Admission: Victoriano Phan MD Attending Provider at Discharge: Rinku Rodriguez Primary Care Provider: Aparna Ann Diagnoses at Discharge Discharge Diagnosis (1) CHF (congestive heart failure): Status: Acute Qualifiers: Heart failure chronicity: acute on chronic Heart failure type: unspecified Qualified Code(s): I50.9 - Heart failure, unspecified (2) Cardiomyopathy: Status: Acute (3) Type 2 diabetes mellitus with foot ulcer: Status: Acute (4) Moderate mitral regurgitation: Status: Acute (5) Systolic CHF, acute: Status: Acute (6) Gastroparesis: Status: Acute (7) Iron overload: Status: Acute Permanent problem details: 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 Most recently found to have malignant right pleural effusion awaiting further treatment planning with oncology. Other comorbidities include systolic and diastolic heart failure with a EF of 45%, type 2 diabetes mellitus, hypertension malignant right-sided pleural effusion presented today chief complaint of altered mental status and lower GI bleed. Patient recently had fracture of proximal end of right tibia he has chronic area of avascular necrosis Ortho recommended medical management patient has been recently discharged from wound care services and home health services, as per the family he has been confused for 2 days preceding hospitalization. He has uses 2 L of oxygen intermittently, he has been experiencing hallucinat ion, no fever but when home health nurse checked on him he had black tarry stool episode at home. Patient has not been able to eat properly for at least 1 year, he was supposed to see general surgery for endoscopy to rule out cause for recurrent/cyclical vomiting. He is diabetic, no previous official diagnosis of gastroparesis. Family history positive for stomach cancer father of complications from stomach cancer. Hospital Course Hospital Course Patient is leaving before conclusion of his hospitalization AGAINST MEDICAL ADVICE. I have taken over his care today, however, from what I can see his evaluation was nonfocal on presentation, head CT negative for acute intracranial pathology, with suspected metabolic encephalopathy, urine retention, Bledsoe catheter was placed. UA was nonsuggestive of UTI. Prior to hospitalization and in the hospital noted with multiple loose black tarry stools. Also with recurrent vomiting. CT abdomen pelvis with third spacing of fluid in the chest and abdomen overall increased from comparison. No focal acute inflammatory disease process in the abdomen or pelvis. He had an EGD which showed abundant amount of remaining fluid in the gastric body, food obstructing access to the pylorus, whitish film over the whole stomach. Random biopsies were taken. Duodenum was not examined. Pathology with mild chronic superficial gastritis, no activity, intestinal metaplasia, dysplasia or malignancy seen. No Helicobacter-like organisms identified on H&E evaluation. During hospitalization hemoglobin lowest was 9.4, he did not require transfusion. Today hemoglobin up to 10.1. He has an appointment to follow-up with gastroenterology at [facility] in May. With suspected gastroparesis he is recommended to follow-up with gastric emptying study. He was transiently started on erythromycin during hospitalization. Nausea and vomiting have improved. He has been tolerating oral intake. Mental status has improved, today he is oriented to place and year. He is mildly hard of hearing, but hears when spoken to loudly. Wound care was continued for lower extremity ulcers, and he is asked to continue after discharge. Received Lasix for anasarca/congestive heart failure. He has been dealing with spinal stenosis with chronic back pain, treated symptomatically in the hospital. Subacute proximal tibia and fibular fracture redemonstrated on presentation, without significant change from comparison. In addition further studies for staging of malignant right pleural effusions were requested by oncology back in February, but he has not since been seen back though completed the studies (see report below), has had 3 hospitalizations since then 1 for each month. Early this afternoon his came in to pick him up to leave the hospital AGAINST MEDICAL ADVICE. They were leaving in a hurry. I was able to briefly speak with her on the phone. Discussed with her risk of worsening condition with premature discharge with his multiple comorbidities, incomplete hospitalization. He additionally has been awaiting arrangements for postdischarge rehabilitation. He has not been able to void even after attempted voiding trial, discussed with her also regarding Bledsoe catheter which is kept in place for now in addition to other recommended plan with follow-up with gastroenterology regarding black tarry stools for further investigation, and gastric emptying study. She states that he will be under further medical care as she is planning to drive up to [place] and get him admitted there since he has seen heme-onc team there previously and is going to ask them to resume his care. Physical Exam Const: GENERAL APPEARANCE: cooperative ORIENTATION/CONSCIOUSNESS: Yes awake and Yes Other orientation findings (He tells me is at [facility] in [place]. Tells me the year is 2022.) OTHER: Hard of hearing, but responding to loud voice. HENMT: COMMON NORMALS: oropharynx normal Neck/C-Spine: COMMON NORMALS: no JVD Resp: COMMON NORMALS: normal respiratory effort and clear to auscultation bilaterally AUSCULTATION: clear to auscultation bilaterally Cardio: COMMON NORMALS: no JVD, regular rhythm, S1 normal heart sound present, S2 normal heart sound present and No murmurs present (Cardio) RHYTHM: regular rhythm HEART SOUNDS: S1 normal heart sound present and S2 normal heart sound present GI: COMMON NORMALS: Normal to inspection, nondistended, normoactive bowel sounds present, Soft to palpation and non-tender PALPATION: Yes Soft to palpation Extremity: COMMON NORMALS: no joint enlargement GENERAL: Yes edema (2+) Neuro: COMMON NORMALS: moves all extremities Skin: OTHER: Ulcers on lower legs of bilateral lower extremities. Urinary Catheter Management: Bledsoe: Cath Placed During This Visit: yes Reason for Continuing Indwelling Catheter: Other Urinary Catheter Date of Insertion: 04/28/23 Urinary Catheter Time of Insertion: 01:25 Discharge Data Studies Completed and Pending Completed Studies During Hospitalization Category Date Time Status CT abdomen pelvis wo con [id number] Routine Cat Scan 04/28/23 00:[address] head wo con* [id number] Stat Cat Scan 04/27/23 23:07 Completed XR chest 1V portable [id number] Stat Exams 04/27/23 23:06 Completed XR foot LT min 3V* [id number] Stat Exams 04/27/23 23:06 Completed XR foot RT min 3V* [id number] Stat Exams 04/27/23 23:06 Completed XR tibia fibula LT 2V [id number] Stat Exams 04/27/23 23:06 Completed XR tibia fibula RT 2V [id number] Stat Exams 04/27/23 23:06 Completed Pathology: Surgical [PTH] Routine Pth 04/29/23 09:46 Completed Pending at discharge Category Date Time Status Blood Cultures ([employer]) Routine Lab 04/27/23 23:30 Results Blood Cultures ([employer]) Routine Lab 04/27/23 23:36 Results Radiology Impressions Chest X-Ray 04/27/23 23:06 IMPRESSION: No significant change from comparison. Foot X-Ray 04/27/23 23:06 IMPRESSION: Negative for acute bone pathology. Tibia/Fibula X-Ray 04/27/23 23:06 IMPRESSION: Negative for acute osseous pathology. Head CT 04/27/23 23:07 IMPRESSION: Negative for acute intracranial pathology. Abdomen/Pelvis CT 04/28/23 00:07 IMPRESSION: 1. Third spacing of fluid in the chest and abdomen is overall increased from comparison. 2. No focal acute inflammatory disease process in the abdomen or pelvis identified. Laboratory Results WBC 4.03 10^3/uL (3.29-11.43) 05/03/23 05:35 RBC 3.97 10^6/uL (3.85-5.65) 05/03/23 05:35 Hgb 10.10 g/dL (11.27-16.99) L 05/03/23 05:35 Hct 35.1 % (37-53) L 05/03/23 05:35 MCV 88.4 fl (82-101) 05/03/23 05:35 MCH 25.4 pg (27-33) L 05/03/23 05:35 MCHC 28.8 g/dL (30-55) L 05/03/23 05:35 RDW 17.9 % (12.1-15.1) H 05/03/23 05:35 Plt Count 82 10^3/cmm (157-399) L 05/03/23 05:35 MPV 12.5 fL (7.4-10.4) H 05/03/23 05:35 Neut % (Auto) 75.5 % 05/03/23 05:35 Lymph % (Auto) 12.7 % 05/03/23 05:35 [place] % (Auto) 10.7 % 05/03/23 05:35 Eos % (Auto) 0.2 % 05/03/23 05:35 Baso % (Auto) 0.2 % 05/03/23 05:35 Neut # (Auto) 3.04 10^3/uL (1.8-7.7) 05/03/23 05:35 Lymph # (Auto) 0.5 10^3/uL (0.8-4.8) L 05/03/23 05:35 [place] # (Auto) 0.4 10^3/uL (0.2-0.9) 05/03/23 05:35 Eos # (Auto) 0.0 10^3/uL (0.0-0.8) 05/03/23 05:35 Baso # (Auto) 0.0 10^3/uL (0.0-0.1) 05/03/23 05:35 Nucleated RBC % (auto) 0 % 05/03/23 05:35 Nucleated RBCs # 0.0 /100WBC 05/03/23 05:35 PT 17.50 SECONDS (12.1-14.9) H 04/29/23 11:02 INR 1.38 (0.8-1.2) H 04/29/23 11:02 APTT 34.8 SECONDS (23.9-36.7) 04/29/23 11:02 Specimen Type Arterial 04/27/23 23:25 Sample Site Brachial, right 04/27/23 23:25 ABG pH 7.42 (7.35-7.45) 04/27/23 23:25 ABG pCO2 36.1 mmHg (35-45) 04/27/23 23:25 ABG pO2 68.8 mmHg (80.0-100.0) L 04/27/23 23:25 ABG PO2/FiO2 Ratio 0 04/27/23 23:25 ABG HCO3 23.3 mmol/L (22-26) 04/27/23 23:25 ABG Base Excess -0.9 mmol/L (-2.0-2.0) 04/27/23 23:25 [place] Test N/a 04/27/23 23:25 Hematocrit 31.3 % (42-52) L 04/27/23 23:25 O2 Delivery Device Room air 04/27/23 23:25 FiO2 21.0 % 04/27/23 23:25 [employer] ID Amh 04/27/23 23:25 Sodium 135 mmol/L (136-145) L 05/03/23 05:35 Potassium 5.7 mmol/L (3.5-5.1) H 05/03/23 05:35 Chloride 99 mmol/L (98-107) 05/03/23 05:35 Carbon Dioxide 25 mmol/L (22-29) 05/03/23 05:35 Anion Gap 16.7 (5-19) 05/03/23 05:35 BUN 42 mg/dL (8-23) H 05/03/23 05:35 Creatinine 1.3 mg/dL (0.7-1.2) H 05/03/23 05:35 GFR Calculation Not Reportable 05/03/23 05:35 Glucose 100 mg/dL (65-115) 05/03/23 05:35 POC Glucose 110 mg/dL (70-110) 05/03/23 10:55 Estimat Average Glucose 88 04/28/23 00:10 Hemoglobin A1c 4.7 % (4.0-6.0) 04/28/23 00:10 Calculated Osmolality 291 mOsm/kg (285-295) 05/03/23 05:35 Lactic Acid 1.5 mmol/L (0.5-2.2) 04/27/23 23:02 Calcium 8.9 mg/dL (8.5-10.5) 05/03/23 05:35 Phosphorus 2.8 mg/dL (2.5-4.5) 05/01/23 04:56 Magnesium 1.9 mg/dL (1.7-2.3) 05/01/23 04:56 Total Bilirubin 0.4 mg/dL (0.15-1.2) 04/29/23 11:02 AST 15 U/L (0-40) 04/29/23 11:02 ALT 8 U/L (0-41) 04/29/23 11:02 Alkaline Phosphatase 201 U/L (40-130) H 04/29/23 11:02 Ammonia 14 umol/L (16-60) L 04/27/23 23:36 C-Reactive Protein 58.9 mg/L (0.0-4.9) H 04/28/23 04:31 NT-Pro-B Natriuret Pep 32062 pg/mL (0-125) H 04/29/23 03:08 Total Protein 6.8 g/dL (6.6-8.7) 04/29/23 11:02 Albumin 2.9 g/dL (3.5-5.2) L 04/29/23 11:02 Globulin 3.9 g/dL (1.3-4.6) 04/29/23 11:02 Urine Color Dark yellow (Yellow) 04/28/23 01:29 Urine Appearance Hazy (CLEAR) A 04/28/23 01:29 Urine pH 5 (5-7) 04/28/23 01:29 Ur Specific [place] 1.025 (1.005-1.030) 04/28/23 01:29 Urine Protein 2+ (Negative) H 04/28/23 01:29 Urine Glucose (UA) Norm (Normal) 04/28/23 01:29 Urine Ketones 1+ (Negative) H 04/28/23 01:29 Urine Blood Trace (Negative) H 04/28/23 01:29 Urine Nitrate Negative (Negative) 04/28/23 01:29 Urine Bilirubin 1+ (Negative) H 04/28/23 01:29 Urine Urobilinogen 4 mg/dL (Negative) H 04/28/23 01:29 Ur Leukocyte Esterase Negative (Negative) 04/28/23 01:29 Urine RBC 0-4 /hpf (0-2) H 04/28/23 01:29 Urine WBC 0-4 /hpf (0-5) H 04/28/23 01:29 Ur Squamous Epith Cells 5-10 /hpf (0-5) H 04/28/23 01:29 Amorphous Sediment Not Reportable 04/28/23 01:29 Urine Bacteria Trace /hpf (NONE) 04/28/23 01:29 Hyaline Casts 5-10 /lpf H 04/28/23 01:29 Urine Mucus 1+ /hpf 04/28/23 01:29 Ethyl Alcohol < 10 mg/dL (0-10) 04/27/23 23:[address]: Radiologist's impression: Staging CT from Feb 2023: Ordering Provider/Ordering MD: Milton Bal MD Date of Service: 02/22/23 Procedure(s): CT chest abdpel w/*[id number] Accession Number(s): [id number] Report Number: [id number] WS: [id number] CT CHEST, ABDOMEN, AND PELVIS TECHNIQUE: Contrast-enhanced CT of the chest, abdomen, and pelvis with coronal and sagittal reformatted images. CLINICAL INFORMATION: hodgkin lymphoma of intrathoracic lymph nodes COMPARISON: 02/10/2023 DLP: 1181.[address] scans at [facility] use at least one of these dose optimization techniques: automated exposure control; mA and/or kV adjustment per patient size (includes targeted exams where dose is matched to clinical indication); or iterative reconstruction. CT CHEST: Small LEFT and moderate RIGHT pleural effusions. RIGHT pleural effusion layering along the RIGHT lateral and anterior pleural space. Consolidation with compressive atelectasis RIGHT lower lobe. Volume loss RIGHT lung. Patchy hazy groundglass infiltrates RIGHT upper lobe. Interstitial edema in the RIGHT greater than LEFT lungs. Normal caliber thoracic aorta. Proximal main pulmonary arteries appear normal. No axillary lymphadenopathy. A few prominent mediastinal lymph nodes unchanged. Cardiomegaly. Diffuse anasarca. CT ABDOMEN AND PELVIS: Cholecystectomy. RIGHT JOY degrades images in the pelvis. Diffuse body wall anasarca. Small amount of free fluid in the pelvis. Hepatomegaly. Splenomegaly. Portal vein and splenic vein are patent. Fatty atrophy of the pancreas. Splenic artery calcification. Adrenal glands are normal. Celiac and SMA are patent. Normal caliber abdominal aorta. Mild bladder wall thickening. Adrenal glands are normal. Normal renal parenchymal enhancement. No hydronephrosis. Mild sigmoid constipation. Mild pancolonic constipation. No lymphadenopathy in the abdomen or pelvis. Prior postoperative changes lumbar spine with fusion. Chronic anterior wedging at L2. IMPRESSION: 1. RIGHT upper lobe groundglass infiltrates have improved compared to previous. 2. Stable bilateral pleural effusions also extending along the lateral pleural space and anterior pleural space RIGHT. 3. Compressive atelectasis with consolidation in the RIGHT lower lobe is unchanged. 4. A few prominent mediastinal lymph nodes unchanged. 5. Diffuse body wall anasarca with interstitial edema. 6. Cardiomegaly. 7. Hepatomegaly and splenomegaly. 8. Prior cholecystectomy 9. Diffuse mild pancolonic constipation. Dictated By: Ramiro Hager MD Signed By: Ramiro Hager MD Signed Date/Time: 02/23/23 1027 Vitals Last Vital Signs Temp 97.4 F L 05/03/23 13:32 Pulse 70 05/03/23 13:32 Resp 17 05/03/23 13:32 BP 130/67 05/03/23 13:32 Pulse Ox 96 05/03/23 13:32 O2 Del Method Nasal Cannula 05/03/23 08:00 O2 Flow Rate 2 05/03/23 08:00 Discharge Plan Discharge Patient Disposition: Left Against Medical Advice Condition: Stable Prescriptions: No Action albuterol sulfate [ProAir HFA] 90 mcg/actuation HFA aerosol inhaler 2 puff inhalation Q6H PRN (Reason: shortness of breath or wheezing) Qty: 8.5 6RF (DME) Compression stockings - 8-15mmHg See Rx Instructions .Route .MEDSUPPLY Qty: 1 0RF Rx Instructions: Wear during the day and remove at night (DME) Hinged Knee Brace See Rx Instructions .Route .MEDSUPPLY Qty: 1 0RF Rx Instructions: As directed (DME) Diabetic shoes See Rx Instructions .Route .MEDSUPPLY Qty: 2 0RF Rx Instructions: As directed ondansetron 4 mg tablet,disintegrating 4 mg PO Q6H PRN (Reason: nausea and vomiting) Qty: 90 3RF potassium chloride 10 mEq tablet extended release 10 meq PO DAILY Qty: 30 0RF spironolactone 50 mg tablet 50 mg PO BID Qty: 60 0RF gabapentin 600 mg tablet See Rx Instructions .ROUTE .COMPLEX Qty: 120 0RF Dose Instruction: TAKE 1 TABLET BY MOUTH FOUR TIMES DAILY Rx Instructions: TAKE 1 TABLET BY MOUTH FOUR TIMES DAILY acetaminophen [Tylenol Arthritis Pain] 650 mg Tablet Extended Release 1,300 mg PO Q12H PRN (Reason: Pain) insulin lispro [Humalog U-100 Insulin] 100 unit/mL Solution See Rx Instructions .ROUTE .COMPLEX Rx Instructions: sliding scale tid dimenhydrinate [Dramamine] 50 mg Tablet 50 mg PO Q8H PRN (Reason: Dizziness) tamsulosin 0.4 mg capsule 0.4 mg PO QAM pantoprazole 40 mg tablet,delayed release (DR/EC) 40 mg PO QAM hydroxyzine HCl 10 mg tablet 10 mg PO QAM Rx Instructions: Don't take with Benadryl lactulose 20 gram/30 mL Solution 10 g PO TID Qty: 1200 2RF oxycodone 10 mg tablet 10 mg PO Q4H PRN (Reason: Pain) 7 Days Qty: 42 0RF furosemide 20 mg tablet 20 mg PO DAILY Men's One Daily Tablet 1 tab PO DAILY Other Ambulatory Orders: [place] [address] (Routine) Timeframe: 1 Week Facility: [facility] - Location: Radiology Ordered By: Rinku Rodriguez Referrals: Gastroenterology, [place] [Other] (May 2023 as per appointment. Black tarry stools with recurrent vomiting Gastroparesis, EGD unremarkable) Aparna Ann PA [Primary Care Provider] - 4-7 days Patient Instructions: GI Discharge Instructions, Opioid Safety Activity Restrictions/Additional Instructions: Follow-up hemoglobin for anemia at next appointment. Continue dressing changes for lower extremity ulcers. Elevate lower extremities. Follow-up with primary provider also regarding severe spinal stenosis and chronic back pain. Follow-up with Dr. Bal regarding malignant pleural effusion, MDS. Follow-up with orthopedics for reassessment of knee brace. Discharge Attestations Time Spent in Discharge Care*: greater than 30 min Quality Metrics Clinical Quality Measures [ No reported AMI, CVA or VTE this stay] Coding Level of Care Code 41700 Total time (in minutes) for Discharge: 50 Diagnoses CHF (congestive heart failure) I50.9 Heart failure chronicity: acute on chronic Heart failure type: unspecified Cardiomyopathy I42.9 Type 2 diabetes mellitus with foot ulcer E11.621; L97.509 Moderate mitral regurgitation I34.0 Systolic CHF, acute I50.21 Gastroparesis K31.84 Iron overload E83.19 Acute on chronic anemia D64.9 Myelodysplastic syndrome D46.9 Hodgkin lymphoma of intrathoracic lymph nodes C81.92 History of allogeneic bone marrow transplant Z94.81 Ulcer of left lower leg L97.929 Peripheral edema R60.9
== END 2023-05-03 13:33 | disposition left against medical advice (07) ==
LOC: ER 23:10 → MEDSURG 04-28 00:59
PROVIDERS: Internal Medicine; Surgery Surgical Critical Care; Admitting Provider Internal Medicine; Emergency Provider Emergency Medicine; PCP Physician Assistant; Visit Provider Internal Medicine
PROC: 0DJ08ZZ Inspection of Upper Intestinal Tract, Via Natural or Artificial Opening Endoscopic (ICD-10-PCS; CPT 43235; principal; 2023-04-29 09:30)
DX: I11.0 Hypertensive heart disease with heart failure (principal); I50.21 Acute systolic (congestive) heart failure; E11.621 Type 2 diabetes mellitus with foot ulcer; L97.509 Non-pressure chronic ulcer of other part of unspecified foot with unspecified severity; I34.0 Nonrheumatic mitral (valve) insufficiency; K31.84 Gastroparesis; E83.19 Other disorders of iron metabolism; D46.9 Myelodysplastic syndrome, unspecified; C81.92 Hodgkin lymphoma, unspecified, intrathoracic lymph nodes; Z94.81 Bone marrow transplant status; L97.929 Non-pressure chronic ulcer of unspecified part of left lower leg with unspecified severity; R60.9 Edema, unspecified; K29.50 Unspecified chronic gastritis without bleeding; Z53.21 Procedure and treatment not carried out due to patient leaving prior to being seen by health care provider; M48.00 Spinal stenosis, site unspecified; J90 Pleural effusion, not elsewhere classified; G93.41 Metabolic encephalopathy; J18.9 Pneumonia, unspecified organism; R60.1 Generalized edema; R33.9 Retention of urine, unspecified; Z87.440 Personal history of urinary (tract) infections; K92.1 Melena; R09.02 Hypoxemia; Z99.81 Dependence on supplemental oxygen; I25.2 Old myocardial infarction; E11.42 Type 2 diabetes mellitus with diabetic polyneuropathy; Z79.4 Long term (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 of insulin
CPT/HCPCS: 36415; 36416; 36600; 43239; 51702; 70450; 71045; 73590; 73630; 74176; 80048; 80053; 80307; 81001; 82140; 82274; 82803; 82962; 83036; 83605; 83735; 83880; 84100; 85025; 85610; 85730; 86140; 87040; 88305; 93005; 96360; 96372; 97110; 97161; 97530; 97760; 99285; C9113; G0378; J1644; J1650; J1815; J2371; J2405; J2704; J7030; J7120; J8597; L1812